=== PATIENT | male | born 1945 | race Caucasian/White ===

== ENCOUNTER → 2017-12-15 13:30 | Outpatient (CLI) | payer MEDICARE, SELFPAY ==
[2017-12-15 15:55] LABS: Hemoglobin A1c 7.4 % (4.2-6.3)
[2017-12-15 16:01] LABS: Cholesterol 256 mg/dL (200); High Density Lipoprotein 35 mg/dL; Triglycerides 311 mg/dL; Very Low Density Lipoprotein 62 mg/dL (5-40)
[2017-12-20 12:08] LABS: Testosterone, Free 4.63 ng/dL (5.00-21.00)
[2017-12-20 16:35] LABS: Testosterone, % Free 2.84 % (1.50-4.20); Testosterone, Total 163 ng/dL (264-916)
== END ==
PROVIDERS: Family Provider Family Medicine; PCP Family Medicine; Visit Provider Family Medicine
DX: E11.9 Type 2 diabetes mellitus without complications (principal); I10 Essential (primary) hypertension; E29.1 Testicular hypofunction; E78.5 Hyperlipidemia, unspecified
CPT/HCPCS: 36415; 80061; 83036; 84402; 84403

== ENCOUNTER 2018-02-09 09:08 | Emergency (ER) | payer MEDICARE, SELFPAY ==
[2018-02-09 09:09] VITALS: BP 134/80; PULSE 85; RESP 18; TEMP 36.7; O2SAT 98; BMI 25.2
--- NOTE | 2018-02-09 09:31 | NURSING ---
NO LW OR POA
--- NOTE | 2018-02-09 09:40 | ED.VISSUMM ---
- ER Visit Summary Date of Service: 02/09/18 Chief Complaint: Dizziness and weakness History of Present Illness: The patient is a 72 M who presents with weakness, dizziness, and fatigue that has been getting worse over the past 2 weeks. Patient states he feels lightheaded with sitting and standing. Patient states he also feels a spinning sensation at times. Patient states nothing seems to help. Patient states he has been having to stop to catch his breath while he mows the lawn. Patient admits to some occasional right-sided chest pain that only lasts a couple seconds then resolves. Patient does admit to some palpitations where he can feel his heart skipping beats. Patient also admits to some dark stools recently. Patient admits to nausea but denies any vomiting. Patient also admits to a mild headache. Physical Examination: Vital signs are stable. Patient is afebrile. Patient is in no acute distress. Pupils are equal, round, and reactive to light bilateral. Extraocular muscles are intact. Conjunctiva is clear. Oral mucosa is pink and moist. Heart was regular rate and rhythm. Lungs are clear and equal bilaterally. There is good respiratory effort noted. Abdomen is soft. Bowel sounds are normal. There is no tenderness. Rectal exam showed brown stool. Hemoccult was negative. There were no masses palpated. Cranial nerves II through XII are intact. There are no focal motor or sensory deficits noted. The remaining physical exam is within normal limits. Test Results: CBC shows a hemoglobin of 9.4. This is down from 13.4 approximately 2 months ago. Creatinine was slightly elevated at 1.79 which is normal for him. Orthostatic vital signs were obtained and were normal. Emergency Department Course and Treatment: Patient felt better on reevaluation. Case was discussed with his primary care physician, Dr. Burgos. He will follow-up with the patient in his office for further evaluation including stress test and referral for endoscopy. Patient understood and was agreeable with the plan. All questions were answered. Disposition: Discharged home Impression: Anemia This note was generated with JournalDoc dictation software. It may contain incorrect words, spelling, and punctuation that were not noted in review of the chart prior to signing ED Disposition - Plan for ED Patient: Disposition: Home or Assisted Living Chief Complaint: Dizziness Diagnosis: Anemia Instructions: ED Dizziness [facility] Referrals: Rolando Burgos DO [Primary Care Provider] -
[2018-02-09] MEDS: Morphine 4 MG/ML Syringe IV (09:58)
[2018-02-09] MEDS: Ondansetron 4 MG/2 ML Vial IV (09:58)
[2018-02-09] MEDS: 0.9% Normal Saline 1,000 ML 1000 ML IV (09:58)
[2018-02-09 10:01] LABS: Hemoglobin 9.4 g/dl (13.0-16.5); Mean Corp Hgb Conc 34.8 g/gl (32-36); Mean Corpuscular Hgb 29.7 pg (27.0-32.0); Mean Corpuscular Volume 85.4 fL (80-94); Mean Platelet Vol. 8.9 fl (6.2-12.0); Platelet Count 79 K/mm3 (150-450); RBC Distribution Width CV 14.1 % (11.6-14.6); RBC Distribution Width SD 42.3 fl (35.1-43.9); Red Blood Count 3.16 M/mm3 (4.6-6.2); White Blood Count 3.3 K/mm3 (4.4-11.0)
[2018-02-09 10:02] LABS: Differential Indicated MANUAL DIFF; POSITIVE COUNT YES; POSITIVE DIFFERENTIAL YES; POSITIVE MORPHOLOGY YES
--- NOTE | 2018-02-09 10:15 | RAD_ITS ---
STUDY: X-RAY - ACUTE ABDOMINAL SERIES REASON FOR EXAM: Male, 72 years old. Dizziness. Pain. TECHNIQUE: Single view of the chest. Supine, and erect view(s) of the abdomen were obtained. COMPARISON: None. FINDINGS: The lungs are clear and expanded. Normal size heart. Normal mediastinum and robinson. Normal visualized pulmonary arteries. Normal visualized aortic arch and descending thoracic aorta. There is a non-specific bowel gas pattern. The soft tissue structures of the abdomen and pelvis are unremarkable. There are diffuse degenerative changes of the visualized lumbar spine. RAD/Acute Abdomen Inc Chest IMPRESSION: There is no acute abnormality. Electronically Signed: Hal North MD at 10:39 EDT , Service support ,
[2018-02-09 10:17] LABS: ALB/GLOB Ratio 1.1 RATIO (0.9-2.4); AST(SGOT) 30 U/L (15-37); Alanine Aminotransfer ALT/SGPT 20 U/L (16-61); Albumin, Serum 3.9 g/dL (3.2-5.0); Alkaline Phosphatase 74 U/L (45-117); Anion Gap 11 (5-15); BUN 32 mg/dL (7-18); BUN/Creat Ratio 18.2 RATIO (10-20); Calcium,Total 10.9 mg/dL (8.5-10.1); Chloride 105 mmol/L (98-107); Creatinine, Serum 1.76 mg/dL (0.70-1.30); EST Glomerular Filtration Rate 41 mL/min (>60); Est Glom Filt Rate - Afr Amer 49 mL/min (>60); Globulin 3.7 g/dL (2.2-4.2); Glucose 147 mg/dL (74-106); Protein, Total 7.6 g/dL (6.4-8.2); Sodium Level 143 mmol/L (136-145)
[2018-02-09 10:38] VITALS: BP 112/77; BP 117/75; BP 129/75; PULSE 78; PULSE 79; PULSE 92
[2018-02-09 10:44] LABS: Basophil 2 % (0-1); Eosinophil 2 % (0-5); Lymphocyte 55 % (19-41); Metamyelocyte 5 % (0-1); Monocyte 13 % (0-10); Myelocyte 2 (0-0); Neutrophil-Band 4 % (0-5); Neutrophil-Segmented 17 % (47-70); Total Cells Counted 100 (MANUAL DIFF)
[2018-02-09 10:51] LABS: Hypochromasia RARE
[2018-02-09 11:08] VITALS: BP 111/72; PULSE 93; RESP 23
[2018-02-09 11:37] LABS: Bacteria 0 SEEN /hpf (None Seen); Red Blood Cells-Urine 0 SEEN /hpf (0-5)
[2018-02-09 11:48] LABS: Color, Urine Yellow (Yellow); Glucose, Dipstick Normal (Normal); Ketone-Dipstick 5 mg/dl (Negative); Leukocyte Esterase-Dipstick 25 /ul (Negative); Nitrite-Dipstick Negative (Negative); Occult Blood-Urine Negative /ul (Negative); Protein-Dipstick 30 mg/dl (Negative); Urine Bilirubin Dipstick Negative (Negative); Urine Clarity Clear (Clear); Urine Urobilinogen 1 mg/dl (Normal)
[2018-02-09 12:09] LABS: White Blood Cells 0-5 SEEN /hpf (0-5)
[2018-02-09 12:10] LABS: Hyaline Cast 5-10 SEEN /lpf (0-5); Mucous, Urine RARE /hpf (<or=2+); Squamous Epithelial Cells - UA 0-5 SEEN /hpf (0-5)
[2018-02-09 12:11] LABS: Calcium Oxalate Crystals Ur 3+ /hpf (<or=2+)
[2018-02-09 14:01] VITALS: BP 125/80; PULSE 80; RESP 16; O2SAT 98
[2018-02-10 00:32] LABS: Absolute Neutrophil Count 0.7 X10^3/uL (2.0-7.7); Neutrophil # 0.69 X10^3/uL (2.7-7.7)
[2018-02-10 10:02] LABS: Pathologist Review Reviewed
== END 2018-02-09 14:02 | disposition home or self-care (01) ==
PROVIDERS: Emergency Provider Emergency Medicine; Family Provider Family Medicine; PCP Family Medicine
DX: D64.9 Anemia, unspecified (principal); F32.9 Major depressive disorder, single episode, unspecified; Z85.72 Personal history of non-Hodgkin lymphomas; Z90.49 Acquired absence of other specified parts of digestive tract; Z79.899 Other long term (current) drug therapy
CPT/HCPCS: 74022; 80053; 81001; 82274; 85025; 96361; 96374; 96375; 99285; J7030; A4216; J2405

== ENCOUNTER → 2018-02-13 12:34 | Outpatient (CLI) | payer MEDICARE, SELFPAY ==
[2018-02-13 14:26] LABS: Erythrocyte Sedimentation Rate 13 mm/hr (0-20)
[2018-02-13 14:31] LABS: Prothrombin Time (Protime)PT. 13.5 SECONDS (11.7-14.9)
[2018-02-13 14:32] LABS: Absolute Lymphocyte Count 1.63 X10^3/ul (0.83-4.51); Absolute Neutrophil Count 0.7 X10^3/uL (2.0-7.7); Basophil# 0.03 X10^3/uL; Eosinophil# 0.09 X10^3/uL; Eosinophils% 3.1 % (0-5); Hematocrit 25.9 % (40-54); Hemoglobin 8.7 g/dl (13.0-16.5); Lymphocyte # 1.63 X10^3/ul (4.0); Mean Corp Hgb Conc 33.6 g/gl (32-36); Mean Corpuscular Hgb 28.5 pg (27.0-32.0); Mean Corpuscular Volume 84.9 fL (80-94); Mean Platelet Vol. 9.1 fl (6.2-12.0); Monocyte# 0.33 X10^3/uL; Monocyte% 11.5 % (0-10); Neutrophil # 0.71 X10^3/uL (2.7-7.7); Partial Thromboplast Time 27.7 Seconds (24.1-36.2); Platelet Count 82 K/mm3 (150-450); RBC Distribution Width CV 14.7 % (11.6-14.6); RBC Distribution Width SD 45.1 fl (35.1-43.9); Red Blood Count 3.05 M/mm3 (4.6-6.2); White Blood Count 2.9 K/mm3 (4.4-11.0)
[2018-02-13 14:33] LABS: Differential Indicated SCAN CRITERIA MET; POSITIVE COUNT YES; POSITIVE DIFFERENTIAL YES; POSITIVE MORPHOLOGY YES
[2018-02-13 14:39] LABS: AST(SGOT) 27 U/L (15-37); Alanine Aminotransfer ALT/SGPT 21 U/L (16-61); Albumin, Serum 3.8 g/dL (3.2-5.0); Alkaline Phosphatase 80 U/L (45-117); Anion Gap 8 (5-15); BUN 25 mg/dL (7-18); BUN/Creat Ratio 13.9 RATIO (10-20); CRP 8.76 mg/L (0.0-3.0); Calcium,Total 10.4 mg/dL (8.5-10.1); Chloride 105 mmol/L (98-107); EST Glomerular Filtration Rate 40 mL/min (>60); Est Glom Filt Rate - Afr Amer 48 mL/min (>60); Ferritin 729 ng/mL (26-388); Globulin 3.9 g/dL (2.2-4.2); Glucose 141 mg/dL (74-106); Iron 156 ug/dL (65-175); LDH 352 U/L (87-241); Protein, Total 7.7 g/dL (6.4-8.2); Sodium Level 142 mmol/L (136-145); Uric Acid 8.4 mg/dL (3.5-7.2)
[2018-02-14 09:23] LABS: Pathologist Review Reviewed
[2018-02-15 10:29] LABS: Beta-2-Microglobulin, S 6.9 mg/L (0.6-2.4)
== END ==
PROVIDERS: Family Provider Family Medicine; PCP Family Medicine; Visit Provider Family Medicine
DX: R53.83 Other fatigue (principal); D61.818 Other pancytopenia; E83.52 Hypercalcemia; E80.6 Other disorders of bilirubin metabolism; N18.3 Chronic kidney disease, stage 3 (moderate)
CPT/HCPCS: 36415; 80053; 82232; 82728; 83540; 83615; 84550; 85025; 85610; 85652; 85730; 86140

== ENCOUNTER 2018-02-13 17:02 | Emergency (ER) | payer MEDICARE, SELFPAY ==
[2018-02-13 17:03] VITALS: BP 138/71; PULSE 103; RESP 14; TEMP 36.6; O2SAT 99; BMI 25.9
--- NOTE | 2018-02-13 18:13 | ED.VISSUMM ---
- ER Visit Summary Date of Service: 02/13/18 Chief Complaint: Needs transfer to [facility] History of Present Illness: The patient is a 72 M presenting stating that he was advised to come to the ER to arrange transfer to [facility]. Patient was seen by his primary care physician Dr. Burgos and had outpatient blood work today. This was reviewed with Dr. Ybarra. 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 He was advised to come to the ED for transfer to [facility] for further treatment. Physical Examination: Vitals are stable. Patient is afebrile. Alert no acute distress. HEENT exam is unremarkable. Neck is supple. Lungs are clear and equal bilaterally. Heart is regular and tachycardic Abdomen is soft nontender nondistended. Extremities are unremarkable. Skin is warm and dry. No focal neurologic deficit. Remainder of exam is unremarkable. Emergency Department Course and Treatment: Labs are reviewed. He has a white count of 2.9, hemoglobin 8.7, platelets 82, 55% blasts. BUN 25, creatinine 1.8. CRP 8.76. LDH 352. Discussed with [facility] transfer line. [facility] recommends allopurinol and IV fluids prior to transfer. Patient will be transferred to [facility]. Disposition: Transfer [facility] Impression: Acute lymphocytic leukemia This note was generated with [employer] dictation software. It may contain incorrect words, spelling, and punctuation that were not noted in review of the chart prior to signing ED Disposition - Plan for ED Patient: Chief Complaint: General Illness Referrals: Rolando Burgos DO [Primary Care Provider] -
[2018-02-13 19:38] VITALS: BP 125/67; PULSE 82; RESP 18; O2SAT 98
[2018-02-13] MEDS: 0.9% Normal Saline 1,000 ML 150 ML IV (19:43)
[2018-02-13] MEDS: Allopurinol 300 MG Tablet PO (19:47)
[2018-02-13] MEDS: Morphine 2 MG/ML Syringe IV (19:57)
[2018-02-13] MEDS: Ondansetron 4 MG/2 ML Vial IV (19:58)
--- NOTE | 2018-02-13 20:39 | ED.RN ---
CALLED [facility] TO CHECK THE STATUS OF THE ROOM ASSIGNMENT FOR THIS PT, NO ONE ANSWERED TO CALL, LEFT MESSAGE
[2018-02-13 21:07] VITALS: BP 106/69; PULSE 69; RESP 17; O2SAT 98
--- NOTE | 2018-02-13 21:08 | NURSING ---
TRANSFER HOSPITAL STATED THEY WILL CALL US SOON THE ROOM IS CLEAN TO GIVE US PT'S ROOM ASSIGNMENT.
[2018-02-13 21:12] VITALS: BP 102/69; PULSE 78; RESP 17; O2SAT 98
[2018-02-13 22:05] VITALS: BP 104/67; PULSE 79; RESP 16; O2SAT 98
[2018-02-14 00:27] VITALS: BP 109/73; PULSE 84; RESP 17; O2SAT 98
== END 2018-02-14 01:42 | disposition short-term general hospital (02) ==
LOC: ED 18:22
PROVIDERS: Emergency Provider Emergency Medicine; Family Provider Family Medicine; PCP Family Medicine
DX: C91.00 Acute lymphoblastic leukemia not having achieved remission (principal); E78.00 Pure hypercholesterolemia, unspecified; Z85.72 Personal history of non-Hodgkin lymphomas; Z79.82 Long term (current) use of aspirin; Z79.899 Other long term (current) drug therapy; R53.83 Other fatigue; D61.818 Other pancytopenia; E83.52 Hypercalcemia; N18.3 Chronic kidney disease, stage 3 (moderate); E80.6 Other disorders of bilirubin metabolism
CPT/HCPCS: 36415; 80053; 82232; 82728; 83540; 83615; 84550; 85025; 85610; 85652; 85730; 86140; 96361; 96374; 96375; 99284; J7030; A4216; J2405

== ENCOUNTER 2018-04-15 08:29 | Outpatient (CLI) | payer MEDICARE, SELFPAY ==
[2018-04-15] MEDS: DiphenhydrAMINE 25 MG Capsule PO (09:31)
[2018-04-15] MEDS: Acetaminophen 325 MG Tablet 650 MG PO (09:31)
[2018-04-15 09:39] VITALS: BP 118/72; PULSE 85; RESP 16; TEMP 36.6; O2SAT 99
[2018-04-15 09:46] VITALS: BP 125/76; PULSE 83; RESP 16; TEMP 37.6; O2SAT 100
== END 2018-04-15 12:10 | disposition home or self-care (01) ==
LOC: PCUOUT 08:30 → PCU 08:31
PROVIDERS: Family Provider Family Medicine; PCP Family Medicine; Visit Provider Internal Medicine Medical Oncology
DX: C83.10 Mantle cell lymphoma, unspecified site (principal)
CPT/HCPCS: 36430; 86850; 86900; 86920; J7040; P9040

== ENCOUNTER → 2018-05-12 10:46 | Outpatient (CLI) | payer MEDICARE, SELFPAY ==
[2018-05-12 11:00] VITALS: BP 124/69; PULSE 88; RESP 16; TEMP 36.9; O2SAT 98; BMI 25.1
[2018-05-12 11:39] VITALS: BP 108/58; PULSE 81; RESP 16; TEMP 36.8
[2018-05-12 12:39] VITALS: BP 123/72; PULSE 75; RESP 18; TEMP 36.4; O2SAT 99
[2018-05-12 13:30] VITALS: BP 128/75; PULSE 77; RESP 18; TEMP 36.8; O2SAT 100
== END ==
PROVIDERS: Family Provider Family Medicine; PCP Family Medicine
DX: C83.10 Mantle cell lymphoma, unspecified site (principal); D64.9 Anemia, unspecified
CPT/HCPCS: 36430; 86850; 86900; 86920; 86922; J7040; P9040; A4216

== ENCOUNTER → 2018-05-16 08:44 | Outpatient (CLI) | payer MEDICARE, SELFPAY ==
[2018-05-16] VITALS (7 sets, daily range): BP systolic 113–145; BP diastolic 69–86; PULSE 59–91; RESP 14–18; TEMP 36.2–37.5; O2SAT 97–100
[2018-05-16] MEDS: DiphenhydrAMINE 25 MG Capsule (09:00)
[2018-05-16] MEDS: Acetaminophen 325 MG Tablet 650 MG PO (09:00)
== END ==
PROVIDERS: Family Provider Family Medicine; PCP Family Medicine
DX: C83.10 Mantle cell lymphoma, unspecified site (principal); D64.9 Anemia, unspecified
CPT/HCPCS: 36430; 86644; 86850; 86900; 86920; 86922; 86965; J7040; P9037; P9040; A4216

== ENCOUNTER 2018-06-12 19:02 | Emergency (ER) | payer MEDICARE, SELFPAY ==
[2018-06-12 19:03] VITALS: BP 147/86; PULSE 112; RESP 16; TEMP 36.1; BMI 25.7
--- NOTE | 2018-06-12 19:23 | CT_ITS ---
STUDY: CT ABDOMEN AND PELVIS WITHOUT CONTRAST REASON FOR EXAM: Male, 73 years old. Groin pain. Bone cancer and mental cell lymphoma RADIATION DOSAGE (If Supplied By Facility): CTDIvol = ( 20.49 ) mGy, DLP = ( 567.82 ) mGycm TECHNIQUE: Transaxial images were obtained from the dome of the diaphragm to the symphysis pubis without oral contrast, and without intravenous contrast. Sagittal and coronal images were reconstructed. Individualized dose optimization techniques were used for this CT. COMPARISON: None. FINDINGS: The visualized lung bases are unremarkable. The visualized portions of the heart are within normal limits. Normal liver. There are surgical clips in the gallbladder fossa consistent with a prior cholecystectomy. There are multiple benign calcified granulomata of the spleen. Normal pancreas. Normal bilateral adrenal glands. Normal right kidney. Normal left kidney. There is a small hiatal hernia. Normal small intestine. Moderate to severe fecal retention throughout the right hemicolon and transverse colon. There is non-visualization of the appendix. There is diffuse atherosclerotic calcification of the abdominal aorta, without a demonstrated aneurysm. Normal inferior vena cava. Normal retroperitoneum. Normal urinary bladder. There is enlargement of the prostate gland. Small fat-containing bilateral inguinal hernias. There are diffuse degenerative changes of the visualized lumbar spine. Grade 1 anterolisthesis of L5 on S1. Bilateral pars defects, chronic. CT/Abdomen/Pelvis without Cont IMPRESSION: Significant fecal retention throughout the right hemicolon and transverse colon. No evidence of urolithiasis or renal obstruction. Small bilateral fat-containing inguinal hernias. Electronically Signed: Bret Raygoza DO at 20:16 EDT Tel , Service support ,
--- NOTE | 2018-06-12 19:38 | ED.RN ---
DILAUDID, ZOFRAN, AND IV FLUIDS GIVEN AT THIS TIME- UNABLE TO SCAN.
[2018-06-12] MEDS: HYDROmorphone 1 MG/ML Syringe 0.5 MG IV (20:13)
[2018-06-12] MEDS: 0.9% Normal Saline 1,000 ML 150 ML IV (20:13)
[2018-06-12] MEDS: Ondansetron 4 MG/2 ML Vial IV (20:13)
--- NOTE | 2018-06-12 20:14 | ED.DCSUM_ITS ---
- ER Visit Summary Date of Service: 06/12/18 Chief Complaint: Pain in groin and chest History of Present Illness: The patient is a 73 M with a history of mantle cell lymphoma. Patient presents with his complaining of pain in his groin and chest which he describes his pain in the breast bone and not near his heart or lungs started this afternoon. He denies any back pain or difficulty urinating. Patient goes off on a tangent about how his life has been held and he is tired of bearing at all. He states multiple ministers of walked away from him and he feels spiritual despair. He states he has been to a psychiatrist in the past and they just pump and full of drugs. Physical Examination: Blood pressure is 147/86, temperature 96.9, heart rate 112, respiratory rate 16 Patient standing at the bedside. He is agitated. Head neck examination is otherwise unremarkable. Heart is tachycardic and regular. Lung sounds clear. There is no chest wall tenderness. Abdomen is soft and nontender. Back examination reveals no thoracic or lumbar midline tenderness. He has no CVA tenderness. Patient has no obvious neuro deficits on exam. Test Results: CBC was a white count of 2.1, hemoglobin 8.5, hematocrit 26.3. Platelet count is 26,000. Differential significant for 29 neutrophils and 44 bands. Chemistry studies reveal glucose of 159. Urinalysis is normal. CT flank shows fecal retention throughout the right hemicolon in the transverse colon. There is no definite kidney stone. Small bilateral fat-containing hernias are noted. Emergency Department Course and Treatment: Patient received a small dose of Dilaudid along with Zofran and IV fluids. On repeat evaluation patient is resting comfortably. I did discuss case with Dr. Ybarra, the patient's oncologist, including the CBC findings and differential. Patient is scheduled for packed RBCs and platelets transfusion tomorrow. Dr. Ybarra will see him tomorrow for this. Treatment Plan: [] Disposition: Discharge Impression: 1. Groin pain, resolved 2. Pancytopenia with history of lymphoma This note was generated with [employer] software. It may contain incorrect words, spelling, and punctuation that were not noted in review of the chart prior to signing ED Disposition - Plan for ED Patient: Disposition: Home or Assisted Living Chief Complaint: General Illness Instructions: ED Flank Pain Uncertain Cause Referrals: Karri Ybarra MD [NON-STAFF] - 1 Day
[2018-06-12 20:16] LABS: Anion Gap 7 (5-15); BUN 14 mg/dL (7-18); BUN/Creat Ratio 11.2 RATIO (10-20); Chloride 106 mmol/L (98-107); Creatinine, Serum 1.25 mg/dL (0.70-1.30); EST Glomerular Filtration Rate 60 mL/min (>60); Est Glom Filt Rate - Afr Amer 73 mL/min (>60); Estimated Creatinine Clearance 49.21 ml/min; Glucose 159 mg/dL (74-106); Potassium 4.3 mmol/L (3.5-5.1); Sodium Level 139 mmol/L (136-145)
[2018-06-12 20:18] LABS: Hematocrit 26.3 % (40-54); Hemoglobin 8.5 g/dl (13.0-16.5); Mean Corp Hgb Conc 32.3 g/gl (32-36); Mean Corpuscular Hgb 30.9 pg (27.0-32.0); Mean Corpuscular Volume 95.6 fL (80-94); RBC Distribution Width CV 18.4 % (11.6-14.6); Red Blood Count 2.75 M/mm3 (4.6-6.2); White Blood Count 2.1 K/mm3 (4.4-11.0)
--- NOTE | 2018-06-12 20:28 | ED.RN ---
DR COX NOTIFIED OF PLATELET AND WBC RESULTS
[2018-06-12 20:36] LABS: Bacteria 0 SEEN /hpf (None Seen); Mucous, Urine 0 SEEN /hpf (<or=2+); Red Blood Cells-Urine 0 SEEN /hpf (0-5); Squamous Epithelial Cells - UA 0 SEEN /hpf (0-5); White Blood Cells 0 SEEN /hpf (0-5)
[2018-06-12 20:41] LABS: Color, Urine Yellow (Yellow); Glucose, Dipstick Normal (Normal); Ketone-Dipstick Negative (Negative); Leukocyte Esterase-Dipstick 25 /ul (Negative); Nitrite-Dipstick Negative (Negative); Occult Blood-Urine Negative /ul (Negative); Protein-Dipstick 15 mg/dl (Negative); Urine Bilirubin Dipstick Negative (Negative); Urine Clarity Clear (Clear); Urine Urobilinogen Normal (Normal)
[2018-06-12 20:44] LABS: Differential Indicated MANUAL DIFF; POSITIVE COUNT YES; POSITIVE DIFFERENTIAL YES; POSITIVE MORPHOLOGY YES; Platelet Count 26 K/mm3 (150-450)
[2018-06-12 20:49] LABS: Basophil 1 % (0-1); Eosinophil 11 % (0-5); Lymphocyte 2 % (19-41); Metamyelocyte 3 % (0-1); Monocyte 10 % (0-10); Neutrophil-Band 44 % (0-5); Neutrophil-Segmented 29 % (47-70); Total Cells Counted 100 (MANUAL DIFF)
[2018-06-12 20:50] LABS: Toxic Granulation 2+
[2018-06-12 20:51] LABS: Anisocytosis 2+; Hypochromasia 1+; Macrocytosis RARE; Platelet Estimate MKD DEC (ADEQ)
[2018-06-12 21:02] VITALS: BP 116/73; PULSE 83; RESP 16; O2SAT 99
[2018-06-12 21:21] LABS: Absolute Lymphocyte Count 0.42 X10^3/ul (0.83-4.51); Absolute Neutrophil Count 1.5 X10^3/uL (2.0-7.7)
--- NOTE | 2018-06-12 22:10 | ED.DEP ---
ED Disposition - Plan for ED Patient: Disposition: Home or Assisted Living Chief Complaint: General Illness Instructions: ED Flank Pain Uncertain Cause Referrals: Karri Ybarra MD [NON-STAFF] - 1 Day
[2018-06-12 22:20] VITALS: BP 116/73; PULSE 83; RESP 16; O2SAT 99
[2018-06-13 12:35] LABS: Pathologist Review Reviewed
== END 2018-06-12 22:23 | disposition home or self-care (01) ==
PROVIDERS: Emergency Provider Emergency Medicine; Family Provider Family Medicine; PCP Family Medicine
DX: R10.30 Lower abdominal pain, unspecified (principal); D61.818 Other pancytopenia; C83.10 Mantle cell lymphoma, unspecified site; R07.9 Chest pain, unspecified; K40.20 Bilateral inguinal hernia, without obstruction or gangrene, not specified as recurrent; Z90.49 Acquired absence of other specified parts of digestive tract; Z79.899 Other long term (current) drug therapy; Z87.891 Personal history of nicotine dependence
CPT/HCPCS: 74176; 80048; 80053; 81001; 85025; 96361; 96374; 96375; 99284; J7030; J2405

== ENCOUNTER → 2018-06-13 10:16 | Outpatient (CLI) | payer MEDICARE, SELFPAY ==
[2018-06-13] VITALS (7 sets, daily range): BP systolic 108–166; BP diastolic 65–81; PULSE 80–86; RESP 14–18; TEMP 36.3–36.5; O2SAT 94–100; BMI 26.8
== END ==
PROVIDERS: Family Provider Family Medicine; PCP Family Medicine
DX: D61.811 Other drug-induced pancytopenia (principal)
CPT/HCPCS: 36430; 86644; 86850; 86900; 86920; 86922; 86965; J7040; P9037; P9040; A4216

== ENCOUNTER → 2018-06-20 09:54 | Outpatient (CLI) | payer MEDICARE, SELFPAY ==
[2018-06-20 10:12] VITALS: BP 113/68; PULSE 76; RESP 16; TEMP 36.6; O2SAT 100; BMI 25.2
[2018-06-20] MEDS: 0.9% Normal Saline 1,000 ML 999 ML IV (10:26)
== END ==
PROVIDERS: Family Provider Family Medicine; PCP Family Medicine
DX: C83.10 Mantle cell lymphoma, unspecified site (principal)
CPT/HCPCS: 96360; J7030; A4216

== ENCOUNTER → 2018-07-14 07:55 | Outpatient (CLI) | payer MEDICARE, SELFPAY ==
[2018-07-14] VITALS (7 sets, daily range): BP systolic 101–120; BP diastolic 57–70; PULSE 76–88; RESP 16–18; TEMP 36.3–36.7; O2SAT 99–100; BMI 25.3
== END ==
PROVIDERS: Family Provider Family Medicine; PCP Family Medicine; Visit Provider Internal Medicine Medical Oncology
DX: C83.10 Mantle cell lymphoma, unspecified site (principal)
CPT/HCPCS: 36430; 86850; 86900; 86920; 86922; J7040; P9040; A4216

== ENCOUNTER → 2018-08-08 10:50 | Outpatient (CLI) | payer MEDICARE, SELFPAY ==
[2018-07-14 08:22] VITALS: BMI 25.3
[2018-08-08 11:04] VITALS: BP 199/58; RESP 16; TEMP 36.4; BMI 25.5
[2018-08-08] MEDS: 0.9% Normal Saline 1,000 ML 999 ML IV (11:18)
[2018-08-08 13:13] VITALS: BP 102/64; PULSE 87; RESP 16; TEMP 36.5; O2SAT 98
[2018-08-08 13:44] VITALS: BP 110/71; PULSE 72; RESP 16; TEMP 36.6
--- OUTSIDE RECORDS SUMMARY | 2018-09-24 11:34 | XMS RPT_ITS | Summary of Care ---
:[address] [facility] Address [address] [place] [address] Phone Care Team Providers Name Role Phone LorettaRolando neri Primary Care Provider Corrie Pope RN Bedside Nurse Unavailable Karri Ybarra [facility] Referring 1 Karri Ybarra [facility] Unavailable Kasey De Leon RN Bedside Nurse Unavailable Linda Hsu MD Unavailable Tamara Lopez RN Unavailable Unavailable Encounter Details Date Type Department Care Team Description 07/17/2018 Notes/Results Only NOTES/RESULTS Other, Other Allergies Active Allergy Reactions Severity Noted Date Comments Duloxetine Hcl Insomnia 02/14/2018 Dm-Guaifenesin Er Confusion 02/14/2018 Quetiapine Insomnia 02/14/2018 Statins 02/14/2018 Pain to muscles as of this encounter Medications Prescription Sig. Disp. Refills Start Date End Date Status omeprazole 20 MG Cap Take 20 mg by 03/20/[address] capsule mouth daily. Misc Natural Products Take 1 capsule by Active (COSAMIN ASU FOR JOINT mouth daily. HEALTH PO) ergocalciferol 78899 Take 50,000 Units Active units Cap by mouth once a week. allopurinol 300 MG Tab Take 1 tablet by 30 tablet 2 02/24/2018 Active tablet mouth daily. docusate 100 MG Cap Take 1 capsule by 04/07/2018 Active mouth 2 times daily as needed for Constipation 1st Line. polyethylene glycol Take 1 packet by 04/07/2018 Active Pack packet mouth daily as needed for Constipation 2nd Line. senna 17.2 MG Tab Take 1 tablet by 0 04/07/2018 Active mouth 2 times daily as needed for Constipation 1st Line. sulfamethoxazole-trime Take 1 tablet by 30 tablet 5 04/08/2018 Active thoprim 800-160 MG Tab mouth daily. 9 per tablet acyclovir 200 MG Cap Take 2 capsules 120 capsule 5 04/07/2018 Active by mouth 2 times daily. prochlorperazine 10 MG Take 1 tablet by 30 tablet 1 04/07/2018 Active Tab tablet mouth every 6 hours as needed for Nausea / Vomiting (try first for nausea/vomiting). ondansetron 8 MG Tab Take 1 tablet by 30 tablet 1 04/07/2018 Active tablet mouth every 8 hours as needed for Nausea / Vomiting (try second for nausea or vomiting). calcium acetate 667 MG Take 1 capsule by 60 capsule 0 04/10/2018 Active Cap mouth 3 times daily with meals. CUSTOM MEDICATION Saline-Bicarbonate Mouth Rinse 1 Each 04/10/2018 Active Swish and spit about 1 tbsp 4 times a day. Mix together, refrigerate, and use within 7 days: 16 oz bottled water 1 teaspoon table salt 1 teaspoon baking soda lidocaine (XYLOCAINE) Take 15 mL by 1 Bottle 0 04/20/2018 Active 80 mL, diphenhydrAMINE mouth every 6 (BENADRYL) 80 mL, hours as needed. alum/mag hydrox.-simethicone 80 mL mouthwash BENDAMUSTINE HCL IV by Intravenous Active route. Cytarabine (PF) Active (CYTOSAR) in sodium chloride 0.9%, with overfill, tubing chemo infusion RITUXIMAB IV by Intravenous Active route. as of this encounter Active Problems Patient Care Coordination Note Patient follows with Dr. Ybarra locally at [place] for labs, line care and transfusion needs. 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 Creat and LDH improved with steroids. Renal diet, phoslo dose TID. Increased allopurinol to 300 mg BID on 04/03 then back to daily on 04/07. Q8 hr TLS labs stable, will change to Q12 hr. K 5.3 on 04/06. EKG NSR without EKG changes. Gave 30 gm Kayexalate x 1 and recheck 4.5. Mood disorder 04/02/2018 Last Assessment & Plan: Patient has been distraught/tearful/anxious during this admission. He divulged that he has been inpatient in a psychiatric unit before and took Seroquel for 3 years. He attributes his current symptoms t o the Seroquel he took in the past. He has endorsed transient thoughts of wanting to , but none today, and he denies any plans for self-harm. Pain Management Specialist has met with him and also discussed some coping strategies with him, as well as utilizing family support. Psych consult deferred as he already has mistrust of psychiatry in general and I feel t his would exacerbate his distrust. Would also advise against suicide precautions as while he made statements consistent transient suicidal thoughts he has no active plan and I do not believe he is currently at risk of self-harm. Ativan 0.5 mg PO Q6 hours prn anxiety/agitation as he said the IV ativan on Tuesday (prior to procedures) really helped him to be calm and relaxed. Continues to report that he can hear the voice of G-d again, which he hasn't heard in 40 years. It is unclear if he is have audial hallucinations or is delusional, he certain displays paranoia at times. Suspect steroids are exacerbating his underlying mood disorder, possibly also with metabolic exacerbation from MINNIE/liver dysfunction/TLS. Hopefully this will improve off steroids, but if not we may need to bring psych in for evaluation. Fever 04/01/2018 Last Assessment & Plan: No fevers reported on admission, but Tmax 101 8/, afebrile since. Could be due to HLH or lymphoma, but also possibly due to infection. No localizing symptoms of infection. Not neutropenic. PB cultures NGTD 12/31. Sent CSF for infectious workup (particularly fungal studies). Defer antibiotics at this time as fever more likely due to non-infectious process. Meningitis panel negative, fungal culture NGTD. Lip numbness 03/30/2018 Last Assessment & Plan: Intermittent for past 7 years, but started again ~2-3 days prior to admission. MRI brain chronic microvascular changes, small remote lacunar infarcts, no edema/mass effect/mass lesion, remote microhemorrhages, and mild diffuse dural thickening and enhancement along B/L cerebral co nvexities--potential etiologies include intracranial hypotension or pachymeningeal process. LP at bedside unsuccessful, LP in fluoro 04/04 to evaluate for DETAILER involvement of lymphoma. CSF <3 WBC, flow with insufficient cells, cytology and differential negative for lymphoma. Acute pain 03/30/2018 Last Assessment & Plan: Generalized body pain per patient, but appears more significant in his right shoulder and jaw. Continue oxycodone PRN. Constipation 03/30/2018 Last Assessment & Plan: Improved after 1/2 bottle of mag citrate and started scheduled colace, senna and miralax. Now stool loose/liquid, changed bowel regimen to prn and can add back in as needed. MCL (mantle cell lymphoma) 03/29/2018 Abnormal LFTs 03/29/2018 Last Assessment & Plan: T bili 2.7, D bili 0.7, Alk Phos 263, ALT 73, AST 139 on admission. Could be secondary to lymphoma or HLH. LFTs improving since starting steroids, except for the bilirubin which increased on 04/05: T bili 5.7, D bili 2.7. RUQ US unremarkable---no liver masses, flow is good, no biliary ductal dilation. Did have focal area of increased FDG avidity in liver noted on PET scan. Hepatitis battery negative. T bili 5.1, D bili 2.5, Alk phos 294, and ALT/AST WNL today. Anemia and thrombocytopenia 03/29/2018 Last Assessment & Plan: Secondary to lymphoma, possibly secondary to HLH also. Transfuse to maintain Hgb >7.0 and platelets >10k unless symptomatic. Has had 3 units pRBC since admission, and 5 units of platelets (prior to and post LPs to get platelets>50K for the procedure) Black tarry stools 02/15/2018 Last Assessment & Plan: Resolved. Had normal BM overnight. Guiac negative 02/15. Continue to closely monitor. 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 Initially admitted to [facility] 02/14-02/24/2018 and found to have mantle cell lymphoma. CT chest showed borderline , enlarged non-specific left hilar LN. 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 Surg path from bone marrow biopsy was consistent with MCL with t(11;14). Was discharged on Ibrutinib. Follows with Dr. Ybarra in [place]. Admitted 03/29 d/t concern for disease progression. Seen by local electric powerline examiner 03/28 and was found to have a WBC from 4 to 37 and LDH 200? s to 3000 over 2 week time span . On admission WBC 29.48, LDH 5037. Recently on Ibrutinib, last dose 03/28, held on admission. Continue ID ppx acyclovir. PET (03/29) with hypermetabolic lymph nodes in the neck, chest and abdomen. Focal s uperficial hypermetabolic activity along the anterior aspect of the liver which may represent focal lymphomatous involvement. Mildly hypermetabolic spleen is nonspecific and may relate to lymphomatous i nvolvement versus post treatment change. Intensely hypermetabolic bone marrow throughout the visualized osseous structures is also nonspecific. Peripheral flow positive for mantle cell lymphoma. Lymphoi d mutation panel for ibrutinib resistance mutation negative. Disease progression remains unclear in spite of PET and rising WBC and LDH, sent IL2, fibrinogen, ferritin, triglycerides due to concern for HLH. Ferritin peaked at 5726 (04/01), trending down with steroids most recent level 2230 on 04/05. Trig 541 Fibrinogen elevated IL2 152,000 Concern for HLH based on cytopenias, LFTs, LDH, fevers, DETAILER symptoms. Bone marrow biopsy 03/31 extensively involved by mantle cell lymphoma representing 90% of marrow cellularity . Attempted LP at bedside 03/31 but unsuccessful. Started pulse dex 40 mg daily x 4 days (03/31-), and again dex 20 mg 04/05-04/06 LP in fluoro 04/04, results negative for lymphoma. Sent hemolysis labs due to cytopenias/LDH/bilirubin--haptoglobin normal, retic low, JLUIS negative, so even though LDH and bilirubin are elevated I think this is due to liver process (HLH vs lymphoma in l iver?) rather than from hemolysis. Will continue to trend LFTs and LDH daily. LDH trending down since starting steroids, was >5000, today down to 876 today. Also WBC count trended down, as well as ci rculating lymphoma cells, clearly responding to steroids. Started C1 BR on 04/06. Will likely transition to R-TRAM outpatient. Added Bactrim for PCP ppx. Will follow up with Dr. Hsu in 4 weeks on 05/04 for next cycle of chemotherapy. Hyperuricemia 02/14/2018 CKD (chronic kidney disease) 02/14/2018 Last Assessment & Plan: Cr. 1.46 on admissions (Baseline Cr 1.4-1.5). Cr 1.22 overnight up from 1.08. Cr 1.17 this morning. Continue IVF. Dose reduce medications and avoid nephrotoxic agents when able. Given TLS, elevated K and phos on 04/03, changed to renal diet (and carb controlled). Continue phoslo 1334 mg TID with meals. Hypercalcemia 02/14/2018 Non-insulin dependent type 2 diabetes mellitus 02/14/2018 Last Assessment & Plan: Diet controlled. Most recent A1C 7.4% on 12/15/2017. In setting of high dose steroids (sugars 300-400), started SSI Lispro, currently at 2:25>150 and CHO coverage 1u:5g CHO. BS 132-259 for past 24 hrs. GERD (gastroesophageal reflux disease) 02/14/2018 Last Assessment & Plan: Continue PPI. NHL (non-Hodgkin's lymphoma) 02/14/2018 Last Assessment & Plan: With sinus involvement. s/p chemo/radiation in 2005. Headache 02/14/2018 Last Assessment & Plan: Chronic. Tramadol prn. If worsens, consider imaging. Resolved Problems Problem Noted Date Resolved Date Hyperkalemia 04/01/2018 04/02/2018 Leukocytosis 03/29/2018 04/05/2018 Social History Tobacco Use Types Packs/Day Years Used Date Former Smoker 1 13 Sex Assigned at Date Recorded Not on file as of this encounter Functional Status Functional Status Response Date of Assessment Are you deaf or do you have serious difficulty hearing? No 03/29/2018 Are you blind or do you have serious difficulty seeing, No 03/29/2018 even when wearing glasses? Do you have serious difficulty walking or climbing stairs No 03/29/2018 (5 years or older)? Do you have difficulty dressing or bathing (5 yrs or No 03/29/2018 older)? Because of a physical, mental, or emotional condition, do No 03/29/2018 you have difficulty doing errands alone such as visiting a doctor's office or shopping (5 yrs or older)? Cognitive Status Response Date of Assessment Because of a physical, mental, or emotional condition, do Yes 03/29/2018 you have serious difficulty concentrating, remembering, or making decisions (5 yrs or older)? as of this encounter Plan of Treatment Upcoming Encounters Date Type Specialty Care Team Description 07/26/2018 Hospital Encounter Nuclear Medicine Linda Hsu MD [address] [place] [address] 07/27/2018 Office Visit Hematology 07/27/2018 Infusion Visit Chemotherapy 07/28/2018 Infusion Visit Chemotherapy Linda Hsu MD [address] [place] [address] 07/29/2018 Infusion Visit Chemotherapy 08/24/2018 Office Visit Hematology Linda Hsu MD [address] [place] [address] 08/24/2018 Infusion Visit Chemotherapy 08/25/2018 Infusion Visit Chemotherapy 08/26/2018 Infusion Visit Chemotherapy Health Maintenance Due Date Last Done Comments TETANUS 1963 TDAP (ADULT) 1964 LIPID SCREENING 1985 PROSTATE CANCER SCREENING DISCUSSION 1995 ABDOMINAL AORTIC ANEURYSM HIGH RISK SCREEN 2010 PNEUMOCOCCAL VACCINE SERIES (1 of 2 - 2010 PCV13) INFLUENZA VACCINE (#1) 2018 05/05/2013 COLON CANCER SCREENING DISCUSSION 02/15/2019 02/15/2018 HEPATITIS C VIRUS SCREENING Completed 03/30/2018, 02/14/2018 as of this encounter Goals Goal Patient Goal Associated Recent Patient-Stated? Author Type Problems Progress Lifestyle Lifestyle No Tamara Lopez, MORENA Note: Clem Parvez and caregiver will be knowledgeable of plan of care. Clem will be compliant with treatment regimen. As evidenced by patient? s ability to recognize barriers to compliance and know who to contact with questions or concerns. [facility] provided Clem with education related to above. as of this encounter Procedures Procedure Name Priority Date/Time Associated Diagnosis Comments LABS (OUTSIDE) 07/17/2018 12:00 AM EST in this encounter Results LABS (OUTSIDE) (07/17/2018) Narrative Performed At in this encounter
--- OUTSIDE RECORDS SUMMARY | 2018-09-24 11:34 | XMS RPT_ITS | Summary of Care ---
:1945 Author Organization [facility] Address [address] [place] [address] Phone Care Team Providers Name Role Phone LorettaRolando neri Primary Care Provider Corrie Pope RN Bedside Nurse Unavailable Karri Ybarra [facility] Referring 1 Karri Ybarra [facility] Unavailable Kasey De Leon RN Bedside Nurse Unavailable Linda Hsu MD Unavailable Tamara Lopez RN Unavailable Unavailable Encounter Details Date Type Department Care Team Description 07/13/2018 Notes/Results Only NOTES/RESULTS Other, Other Allergies Active [...] FOR JOINT mouth daily. HEALTH PO) ergocalciferol 21149 Take 50,000 Units Active units Cap by [...] Patient follows with Dr. Ybarra locally at [place] for labs, line care and transfusion needs. [...] and he denies any plans for self-harm. 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 CSF <3 WBC, flow [...] del17p and complex karyotype. 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 CT chest showed borderline , enlarged non-specific left hilar LN. 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 Surg path from bone marrow biopsy was consistent with MCL with t(11;14). Was discharged on Ibrutinib. Follows with Dr. Ybarra in [place]. Admitted 03/29 d/t concern for disease progression. Seen by local power generating plant operator 03/28 and was found to have a [...] HLH based on cytopenias, LFTs, LDH, fevers, HOTHOUSE WORKER symptoms. Bone marrow biopsy 03/31 extensively involved [...] MD [address] [place] [address] 07/27/2018 Office Visit Hematology 07/27/2018 Infusion Visit Chemotherapy 07/28/2018 Infusion Visit Chemotherapy Linda Hsu MD [address] [place] [address] 07/29/2018 Infusion Visit Chemotherapy 08/24/2018 Office Visit Hematology Linda Hsu MD [address] [place] [address] 08/24/2018 Infusion Visit Chemotherapy 08/25/2018 [...] who to contact with questions or concerns. [facility] provided Clem with education related to above. as of this encounter Procedures Procedure Name Priority Date/Time Associated Diagnosis Comments LABS (OUTSIDE) 07/13/2018 12:00 AM EST in this encounter Results LABS (OUTSIDE) (07/13/2018) Narrative Performed At in this encounter
--- OUTSIDE RECORDS SUMMARY | 2018-09-24 11:34 | XMS RPT_ITS | Summary of Care ---
:1945 Author Organization [facility] Address [address] [place] [address] Phone Care Team Providers Name Role Phone LorettaRolando neri Primary Care Provider Corrie Pope RN Bedside Nurse Unavailable Karri Ybarra [facility] Referring 1 Karri Ybarra [facility] Unavailable Kasey De Leon RN Bedside Nurse Unavailable Linda Hsu MD Unavailable Tamara Lopez RN Unavailable Unavailable Encounter Details Date Type Department Care Team Description 08/03/2018 Notes/Results Only NOTES/RESULTS Other, Other Allergies Active [...] FOR JOINT mouth daily. HEALTH PO) ergocalciferol 64775 Take 50,000 Units Active units Cap by [...] Patient follows with Dr. Ybarra locally at [place] for labs, line care and transfusion needs. 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 CSF <3 WBC, flow [...] del17p and complex karyotype. 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 CT chest showed borderline , enlarged non-specific left hilar LN. 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 Surg path from bone marrow biopsy was consistent with MCL with t(11;14). Was discharged on Ibrutinib. Follows with Dr. Ybarra in [place]. Admitted 03/29 d/t concern for disease progression. Seen by local furniture removalist's assistant 03/28 and was found to have a [...] HLH based on cytopenias, LFTs, LDH, fevers, CATTLE SORTER symptoms. Bone marrow biopsy 03/31 extensively involved [...] Encounters Date Type Specialty Care Team Description 08/24/2018 Office Visit Hematology Linda Hsu MD [address] [place] [address] 08/24/2018 Infusion Visit Chemotherapy 08/25/2018 [...] who to contact with questions or concerns. [facility] provided Clem with education related to above. as of this encounter Procedures Procedure Name Priority Date/Time Associated Diagnosis Comments LABS (OUTSIDE) 08/03/2018 12:00 AM EST in this encounter Results LABS (OUTSIDE) (08/03/2018) Narrative Performed At in this encounter
--- OUTSIDE RECORDS SUMMARY | 2018-09-24 11:34 | XMS RPT_ITS | Summary of Care ---
:1945 Author Organization [facility] Address [address] [place] [address] Phone Care Team Providers Name Role Phone LorettaRolando neri Primary Care Provider Corrie Pope RN Bedside Nurse Unavailable Karri Ybarra [facility] Referring [address] [facility] Unavailable Kasey De Leon RN Bedside Nurse Unavailable Linda Hsu MD Unavailable Tamara Lopez RN Unavailable Unavailable Encounter Details Date Type Department Care Team Description 07/06/2018 Notes/Results Only NOTES/RESULTS Other, Other Allergies Active [...] FOR JOINT mouth daily. HEALTH PO) ergocalciferol 30637 Take 50,000 Units Active units Cap by [...] Patient follows with Dr. Ybarra locally at [place] for labs, line care and transfusion needs. [...] and he denies any plans for self-harm. Optical Laboratory Technician has met with him and also discussed [...] LP in flu[place] 04/04 to evaluate for ENGINEERING CLERK involvement of lymphoma. CSF <3 WBC, flow [...] del17p and complex karyotype. 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 CT chest showed borderline , enlarged non-specific left hilar LN. 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 Surg path from bone marrow biopsy was consistent with MCL with t(11;14). Was discharged on Ibrutinib. Follows with Dr. Ybarra in [place]. Admitted 03/29 d/t concern for disease progression. Seen by local jde developer 03/28 and was found to have a [...] HLH based on cytopenias, LFTs, LDH, fevers, ENGINEERING CLERK symptoms. Bone marrow biopsy 03/31 extensively involved [...] Date Type Specialty Care Team Description 07/26/2018 Appointment Nuclear Medicine Linda Hsu MD [address] [place] [address] 07/27/2018 Office Visit Hematology 07/27/2018 Infusion Visit Chemotherapy 07/28/2018 Infusion Visit Chemotherapy 07/29/2018 Infusion Visit Chemotherapy 08/24/2018 Office Visit Hematology Linda Hsu MD [address] [place] [id number] 08/24/2018 Infusion Visit Chemotherapy 08/25/2018 Infusion Visit [...] Problems Progress Lifestyle Lifestyle No Tamara Lopez, RN Note: Clem Parvez and caregiver will be knowledgeable of plan of care. Clem will be compliant with treatment regimen. As evidenced by patient? s ability to recognize barriers to compliance and know who to contact with questions or concerns. [facility] provided Clem with education related to above. as of this encounter Procedures Procedure Name Priority Date/Time Associated Diagnosis Comments LABS (OUTSIDE) 07/06/2018 12:00 AM EST in this encounter Results LABS (OUTSIDE) (07/06/2018) Narrative Performed At in this encounter
--- OUTSIDE RECORDS SUMMARY | 2018-09-24 11:37 | XMS RPT_ITS ---
:1945 Author Organization [place] Support Name Relationship Address Phone R Unavailable Unavailable Unavailable TEENA, TED Unavailable [address] + [place] [address] R Unavailable Unavailable Unavailable TEENA, TED Unavailable [address] + [place] [address] R Unavailable Unavailable Unavailable TEENA, TED Unavailable [address] + [place] [address] R Unavailable Unavailable Unavailable TEENA, TED Unavailable [address] + [place] [address] TEENA, TED Unavailable [address] + [place] [address] TEENA, ANCELMO Unavailable Unavailable Unavailable TEENA, LEXI Unavailable Unavailable Unavailable TEENA, TED Unavailable [address] + [place] [address] TEENA, ANCELMO Unavailable Unavailable Unavailable TEENA, LEXI Unavailable Unavailable Unavailable TEENA, TED Unavailable [address] + [place] [address] TEENA, ANCELMO Unavailable Unavailable Unavailable TEENA, LEXI Unavailable Unavailable Unavailable TEENA, TED Unavailable [phone] [place] [address] TEENA, ANCELMO Unavailable Unavailable Unavailable TEENA, LEXI Unavailable Unavailable Unavailable TEENA, TED Unavailable [address] + [place] [address] TEENA, TED Unavailable [address] + [place] [address] R Unavailable Unavailable Unavailable TEENA, TED Unavailable [address] + [place] [address] R Unavailable Unavailable Unavailable TEENA, TED Unavailable [address] + [place] [address] TEENA, TED Unavailable [address] + [place] [address] TEENA, ANCELMO Unavailable Unavailable Unavailable TEENA, LEXI Unavailable Unavailable Unavailable TEENA, TED Unavailable [address] + [place] [address] TEENA, ANCELMO Unavailable Unavailable Unavailable TEENA, LEXI Unavailable Unavailable Unavailable TEENA, TED Unavailable [address] + [place] [address] TEENA, ANCELMO Unavailable Unavailable Unavailable TEENA, LEXI Unavailable Unavailable Unavailable TEENA, TED Unavailable [address] + [place] [address] TEENA, ANCELMO Unavailable Unavailable Unavailable TEENA, LEXI Unavailable Unavailable Unavailable TEENA, TED Unavailable [address] + [place] [address] TEENA, ANCELMO Unavailable Unavailable Unavailable TEENA, LEXI Unavailable Unavailable Unavailable TEENA, TED Unavailable [address] + [place] [address] TEENA, ANCELMO Unavailable Unavailable Unavailable TEENA, LEXI Unavailable Unavailable Unavailable R Unavailable Unavailable Unavailable TEENA, TED Unavailable [address] + [place] [address] TEENA, TED Unavailable [address] + [place] [address] TEENA, ANCELMO Unavailable Unavailable Unavailable TEENA, LEXI Unavailable Unavailable Unavailable TEENA, TED Unavailable [address] + [place] [address] TEENA, ANCELMO Unavailable Unavailable Unavailable TEENA, LEXI Unavailable Unavailable Unavailable TEENA, TED Unavailable [address] + [place] [address] TEENA, ANCELMO Unavailable Unavailable Unavailable TEENA, LEXI Unavailable Unavailable Unavailable TEENA, ETD Unavailable [address] + [place] [address] TEENA, ANCELMO Unavailable Unavailable Unavailable TEENA, LEXI Unavailable Unavailable Unavailable R Unavailable Unavailable Unavailable TEENA, TED Unavailable [address] + [place] [address] R Unavailable Unavailable Unavailable TEENA, TED Unavailable [address] + [place] [address] R Unavailable Unavailable Unavailable TEENA, TED Unavailable [address] + [place] [address] TEENA, TED Unavailable [address] + [place] [address] TEENA, ANCELMO Unavailable Unavailable Unavailable TEENA, LEXI Unavailable Unavailable Unavailable TEENA, TED Unavailable [address] + [place] [address] TEENA, ANCELMO Unavailable Unavailable Unavailable TEENA, LEXI Unavailable Unavailable Unavailable TEENA, TED Unavailable [address] + [place] [address] TEENA, ANCELMO Unavailable Unavailable Unavailable TEENA, LEXI Unavailable Unavailable Unavailable TEENA, TED Unavailable [address] + [place] [address] TEENA, ANCELMO Unavailable Unavailable Unavailable TEENA, LEXI Unavailable Unavailable Unavailable R Unavailable Unavailable Unavailable TEENA, TED Unavailable [address] + [place] [address] R Unavailable Unavailable Unavailable TEENA, TED Unavailable [address] + [place] [address] R Unavailable Unavailable Unavailable TEENA, TED Unavailable [address] + [place] [address] TEENA, TED Unavailable [address] + [place] [address] TEENA, ANCELMO Unavailable Unavailable Unavailable TEENA, LEXI Unavailable Unavailable Unavailable TEENA, TED Unavailable [address] + [place] [address] TEENA, ANCELMO Unavailable Unavailable Unavailable TEENA, LEXI Unavailable Unavailable Unavailable TEENA, TED Unavailable [address] + [place] [address] TEENA, ANCELMO Unavailable Unavailable Unavailable TEENA, LEXI Unavailable Unavailable Unavailable TEENA, TED Unavailable [address] + [place] [address] TEENA, ANCELMO Unavailable Unavailable Unavailable TEENA, LEXI Unavailable Unavailable Unavailable TEENA, TED Unavailable [address] + [place] [address] TEENA, ANCELMO Unavailable Unavailable Unavailable TEENA, LEXI Unavailable Unavailable Unavailable R Unavailable Unavailable Unavailable TEENA, TED Unavailable [address] + [place] [address] R Unavailable Unavailable Unavailable TEENA, TED Unavailable [address] + [place] [address] R Unavailable Unavailable Unavailable TEENA, TED Unavailable [address] + [place] [address] TEENA, TED Unavailable [address] [facility] [address] + [place] [address] TEENA, ANCELMO Unavailable Unavailable Unavailable TEENA, LEXI Unavailable Unavailable Unavailable R Unavailable Unavailable Unavailable TEENA, TED Unavailable [address] + [place] [address] R Unavailable Unavailable Unavailable TEENA, TED Unavailable [address] + [place] [address] R Unavailable Unavailable Unavailable TEENA, TED Unavailable [address] + [place] [address] TEENA, TED Unavailable [address] + [place] [address] TEENA, ANCELMO Unavailable Unavailable Unavailable TEENA, LEXI Unavailable Unavailable Unavailable R Unavailable Unavailable Unavailable TEENA, TED Unavailable [address] + [place] [address] R Unavailable Unavailable Unavailable TEENA, TED Unavailable [address] + [place] [address] R Unavailable Unavailable Unavailable TEENA, TED Unavailable [address] + [place] [address] R Unavailable Unavailable Unavailable TED DICKINSON Unavailable [address] + [place] [address] R Unavailable Unavailable Unavailable TEENA, TED Unavailable [address] [facility] [address] + [place] [address] Care Team Providers Name Role Phone PHYSICIAN, NOT RECORDED Attending Unavailable MANDIE GONSALEZ, HARDEEP Saha JR. Primary Care Unavailable DEEPA BYNUM Admitting Unavailable JOANN GIBSON Referring Unavailable DEEPTI, LUIS ALBERTO A Primary Care Unavailable JEFFREY ALMAGUER Attending Unavailable STEPHANIE VILLALTA Admitting Unavailable KARRI YBARRA Referring Unavailable DEEPTI LUIS ALBERTO A Primary Care Unavailable ZEENAT GREWAL Attending Unavailable ZEENAT GREWAL Attending Unavailable ZEENAT GREWAL Referring Unavailable DEEPTI, LUIS ALBERTO A Primary Care Unavailable ZEENAT GREWAL Attending Unavailable SELF, SELF Referring Unavailable DEEPTI, LUIS ALBERTO A Primary Care Unavailable KISHORE AMARO Attending Unavailable KISHORE AMARO Referring Unavailable DEEPTI, LUIS ALBERTO A Primary Care Unavailable ZEENAT GREWAL Attending Unavailable MARGASZEENAT Referring Unavailable DEEPTI, LUIS ALBERTO A Primary Care Unavailable MADDOCKSZEENAT Attending Unavailable LEONARDDOCKSZEENAT Referring Unavailable DEEPTI, LUIS ALBERTO A Primary Care Unavailable MADDOCKSZEENAT Attending Unavailable ZEENAT GREWAL Referring Unavailable DEEPTI, LUIS ALBERTO A Primary Care Unavailable MADZEENAT SOTO Attending Unavailable DEEPTI, LUIS ALBERTO A Referring Unavailable DEEPTI, LUIS ALBERTO A Primary Care Unavailable MADDOCKSZEENAT Attending Unavailable LEONARDDOCKSZEENAT Referring Unavailable DEEPTI, LUIS ALBERTO A Primary Care Unavailable MADDOCKSZEENAT Attending Unavailable SHAWNACKSZEENAT Referring Unavailable DEEPTI, LUIS ALBERTO A Primary Care Unavailable MADDODOLORESSZEENAT Attending Unavailable DEEPTI, LUIS ALBERTO A Referring Unavailable DEEPTI, LUIS ALBERTO A Primary Care Unavailable ZEENAT GREWAL Attending Unavailable ZEENAT GREWAL Referring Unavailable DEEPTI, LUIS ALBERTO A Primary Care Unavailable ZEENAT GREWAL Attending Unavailable SHAWNACKSZEENAT Referring Unavailable DEEPTI, LUIS ALBERTO A Primary Care Unavailable ZEENAT GREWAL Attending Unavailable ZEENAT GREWAL Referring Unavailable DEEPTI, LUIS ALBERTO A Primary Care Unavailable ZEENAT GREWAL Attending Unavailable MARGASZEENAT Referring Unavailable DEEPTI, LUIS ALBERTO A Primary Care Unavailable ZEENAT GREWAL Attending Unavailable ZEENAT GREWAL Referring Unavailable DEEPTI, LUIS ALBERTO A Primary Care Unavailable DEEPTI, LUIS ALBERTO A Referring Unavailable DEEPTI, LUIS ALBERTO A Primary Care Unavailable AYANA AZEVEDO Attending Unavailable LESTER EATON Attending Unavailable KISHORE AMARO Referring Unavailable DEEPTI, LUIS ALBERTO A Primary Care Unavailable ZEENAT GREWAL Attending Unavailable ZEENAT GREWAL Referring Unavailable DEEPTI, LUIS ALBERTO A Primary Care Unavailable ZEENAT GREWAL Attending Unavailable MARGASZEENAT Referring Unavailable DEEPTI, LUIS ALBERTO A Primary Care Unavailable ZEENAT GREWAL Attending Unavailable ZEENAT GREWAL Referring Unavailable DEEPTI, LUIS ALBERTO A Primary Care Unavailable LEONARDDOCKSZEENAT Attending Unavailable DEEPTI, LUIS ALBERTO A Referring Unavailable DEEPTI, LUIS ALBERTO A Primary Care Unavailable MADDOCKS, ZEENAT J Attending Unavailable MADDOCKS, ZEENAT J Referring Unavailable DEEPTI, LUIS ALBERTO A Primary Care Unavailable MADDOCKS, ZEENAT J Attending Unavailable MADDOCKS, ZEENAT J Referring Unavailable DEEPTI, LUIS ALBERTO A Primary Care Unavailable ADRIANNE PUGH Attending Unavailable ADRIANNE PUGH Referring Unavailable Deepti, Luis Alber[place] Primary Care Unavailable Prah, Karri Attending Unavailable ADRIANNE PUGH Referring Unavailable Deepti, Luis Alber[place] Primary Care Unavailable Prah, Karri Consulting Unavailable Prah, Karri Attending Unavailable Deepti, Luis Alberto Primary Care Unavailable ADRIANNE PUGH Referring Unavailable Prah, Karri Consulting Unavailable Prah, Karri Attending Unavailable Deepti, Luis Alber[place] Primary Care Unavailable Prah, Karri Consulting Unavailable Prah, Karri Attending Unavailable Deepti, Luis Alberto Primary Care Unavailable Prah, Karri Attending Unavailable ADRIANNE PUGH Referring Unavailable Deepti, Luis Alberto Primary Care Unavailable Prah, Karri Consulting Unavailable Deepti, Luis Alber[place] Attending Unavailable Deepti, Luis Alberto Primary Care Unavailable Deepti, Luis Alberto Primary Care Unavailable Roderick Early Attending Unavailable Deepti, Luis Alber[place] Attending Unavailable Deepti, Luis Alberto Referring Unavailable Deepti, Luis Alberto Primary Care Unavailable Deepti, Luis Alberto Primary Care Unavailable Joann Gibson Attending Unavailable Prah, Karri Attending Unavailable Prah, Karri Referring Unavailable Deepti, Luis Alberto Primary Care Unavailable Prah, Karri Consulting Unavailable Prah, Karri Attending Unavailable Prah, Karri Referring Unavailable Deepti, Luis Alber[place] Primary Care Unavailable Prah, Karri Consulting Unavailable Prah, Karri Attending Unavailable Prah, Karri Referring Unavailable Deepti, Luis Alber[place] Primary Care Unavailable Prah, Karri Consulting Unavailable Radha Vera Attending Unavailable Prah, Karri Attending Unavailable Prah, Karri Referring Unavailable Deepti, Luis Alber[place] Primary Care Unavailable Prah, Karri Attending Unavailable Deepti, Luis Alber[place] Referring Unavailable Deepti, Luis [place] Primary Care Unavailable Prah, Karri Consulting Unavailable ADRIANNE PUGH Attending Unavailable ADRIANNE PUGH Referring Unavailable Deepti, Luis Alber[place] Primary Care Unavailable Deepti, Luis Alberto Primary Care Unavailable Isaac, Jose Consulting Unavailable ADRIANNE PUGH Attending Unavailable ADRIANNE PUGH Referring Unavailable Prah, Karri Attending Unavailable ADRIANNE PUGH Referring Unavailable Deepti, Luis [place] Primary Care Unavailable Prah, Karri Consulting Unavailable ADRIANNE PUGH Attending Unavailable ADRIANNE PUGH Referring Unavailable Deepti, Luis Alber[place] Primary Care Unavailable Deepti, Luis Alberto Primary Care Unavailable Rani Chaves Attending Unavailable Deepti, Luis Alberto Primary Care Unavailable ADRIANNE PUGH Consulting Unavailable ADRIANNE PUGH Attending Unavailable ADRIANNE PUGH Referring Unavailable Deepti, Luis Alber[place] Primary Care Unavailable Tate Karri Attending Unavailable Deepti, Luis Alberto Primary Care Unavailable ADRIANNE PUGH Attending Unavailable ADRIANNE PUHG Referring Unavailable PROBLEMS PROBLEMS DATE TYPE CONDITION / CODE ATTENDING STATUS SOURCE 09/18/2018 Unknown C83.38 - Diffuse PraKarri trimble Active [place] large B-cell [facility] lymphoma, lymph Hospital nodes of multiple Repository sites / C83.38(ICD-10) 09/11/2018 Unknown C83.10 - Mantle PraKarri trimble Active [place] cell lymphoma, Community unspecified site / Hospital C83.10(ICD-10) Repository 07/27/2018 Admitting Other malaise / USCIO, AYANA Active [place] diagnosis R53.81(ICD-10) [facility] Repository 07/26/2018 Admitting Mantle cell MADDOCKS, ZEENAT Active [place] [facility] diagnosis lymphoma, [facility] extranodal and [facility] solid organ sites / Center C83.19(ICD-10) Repository 05/22/2018 Unknown Z85.72 - Personal Karri Ybarra Active [place] history of [facility] lymphomas / Repository Z85.72(ICD-10) 05/12/2018 Unknown D64.9 - Anemia, ADRIANNE PUGH Active [place] unspecified / Community D64.9(ICD-10) Hospital Repository 04/02/2018 Admitting Unspecified mood MADDOCKS, ZEENAT Active [place] diagnosis (affective) [facility] disorder / [facility] F39(ICD-10) Center Repository 03/30/2018 Admitting Pain, unspecified / MADDOCKS, ZEENAT Active [place] diagnosis R52(ICD-10) [facility] Repository 03/29/2018 Admitting Mantle cell MADDOCKS, ZEENAT Active [facility] [facility] diagnosis lymphoma, [facility] unspecified site / [facility] C83.10(ICD-10) Center Repository 02/17/2018 Admitting Other pancytopenia JEFFREY ALMAGUER Active [place] diagnosis / D61.818(ICD-10) [facility] Repository 02/13/2018 Unknown R53.83 - Other Luis Alberto Burgos Active [place] fatigue / Community R53.83(ICD-10) Hospital Repository 02/13/2018 Unknown D61.818 - Other Luis Alberto Burgos Active [place] pancytopenia / Community D61.818(ICD-10) Hospital Repository 02/13/2018 Unknown E83.52 - Luis Alberto Burgos Active [place] Hypercalcemia / Community E83.52(ICD-10) Hospital Repository 02/13/2018 Unknown E80.6 - Other Luis Alberto Burgos Active [place] disorders of [facility] metabolism / Repository E80.6(ICD-10) 02/13/2018 Unknown N18.3 - Chronic Luis Alberto Burgos Active [place] kidney disease, [facility] stage 3 (moderate) Hospital / N18.3(ICD-10) Repository PROCEDURES PROCEDURES No Procedure Records FoundRESULTS RESULTS PET/CT TUMOR BASE Observed: 09/18/2018 Status: F Source: [facility] SUBS 11:06 AM [facility] REPOSITORY [facility] Imaging Services [address] [place] [address] PET/CT Tumor Base -Thigh Subs MR#: [id number] Acct: [id number] Name: LEXI DICKINSON Rep #: [id number] : 1945 M 73 From: Hardeep Romano DO PCP: Luis Alberto Burgos DO Status: REG RCR Study: PET/CT Tumor Base -Thigh Subs Date of Exam: 09/18/18 Exam# [id number] Ordering Dr: Karri Ybarra MD EXAMINATION: FDG PET CT INDICATIONS: 73-year-old male with reported history of lymphoma presenting for restaging examination. COMPARISON EXAMINATION: CT of the abdomen and pelvis report dated 06/12/18. TECHNIQUE: Following the intravenous administration of 15.3 mCi of F-18 deoxyglucose via the left antecubital fossa, multiplanar image acquisitions of the neck, chest, abdomen and pelvis to level of mid thigh, obtained at one hour post radiopharmaceutical administration contemporaneously interpreted with the current CT of the neck, chest, abdomen and pelvis to level of mid thigh, dated 09/18/[address] of the abdomen and pelvis report dated 06/12/18 reveal: SERUM GLUCOSE LEVEL: 128 mg/dl. HEIGHT: 67 inches. WEIGHT: 165 lbs. FINDINGS: 1. There is no quantitative scintigraphic evidence of abnormal increased glucose metabolism on meticulous inspection of whole body acquisitions to include all three axis reconstructions. 2. Normal physiologic distribution of the radiopharmaceutical is apparent in the hepatic and splenic parenchyma, both renal units, bladder and visualized intestinal tract. There is uniform distribution of the radiopharmaceutical concentration defined in the visualized cerebellar hemispheres and cerebral cortical structures.? Diffuse intestinal tract activity is noted throughout all four quadrants of the abdominal-pelvic retroperitoneum, mesentery consistent with normal physiologic distribution of the radiopharmaceutical. Prominent glucose metabolism is defined in the oral cavity and distribution of the orbicularis mary ann musculature most consistent with physiologic distribution of the radiopharmaceutical. Pertinent CT findings are as follows. CHEST: Atherosclerotic calcification is defined in the thoracic aorta without evidence of dilatation, aneurysm formation. Coronary arterial calcification is observed. Calcified and noncalcified mediastinal and thoracic perihilar soft tissue is non-glucose avid. Scattered bilateral axillary subcentimeter soft tissue densities are metabolic. There are no parenchymal densities-nodules noted in the right-left hemithorax manifesting quantitatively significant increased glucose metabolism. ABDOMEN AND PELVIS: Atherosclerotic calcification is defined in the abdominal aorta without evidence of dilatation, aneurysm formation. Pelvic arterial calcification is observed. The gallbladder is surgically absent. Calcified granuloma formation is noted within the splenic parenchyma. Fat-containing bilateral inguinal hernias are noted. Right- left inguinal soft tissue densities demonstrate no evidence of increased glucose metabolism. Colonic diverticulosis is defined. Calcified phlebolith formation is noted in the bilateral lower hemipelvis. Dystrophic calcification is manifest within the prostate gland without evidence of quantitatively significant enhanced FDG uptake. SKELETAL: Degenerative changes defined in the cervical, thoracic and lumbar spine demonstrate no evidence for glucose hypermetabolism. PET/PET/CT Tumor Base -Thigh Subs IMPRESSION: 1. NEGATIVE EXAMINATION. There is no definitive quantitative scintigraphic evidence of recurrent-viable neoplasm. 2. Prominent radiopharmaceutical concentration noted within the oral cavity is most consistent with physiologic distribution of the radiopharmaceutical. If soft tissue mass formation is suspected, clinical examination is recommended. Electronic Signature Hardeep Romano D.O. Electronically Signed: Hardeep Romano DO at 23:48 EST Tel , Service support , CC: Karri Ybarra MD; Luis Alberto Burgos DO [employer]ist: Signed ONCOLOGY VISIT REPORT Observed: 09/11/2018 Status: F Source: [facility] 3:16 PM [facility] REPOSITORY [facility] Medical Oncology [address] [place] [address] OFFICE VISIT Date of Service: 09/11/18 1511 MR#: [id number] Acct: [id number] Name: LEXI DICKINSON Rep #: [id number] : 1945 From: Karri Ybarra MD Age/Sex: 73/M Location: [facility] Status: Signed Subjective - Date of Service Date of Service:: 09/11/18 - Chief Complaint F/u for Mantle cell lymphoma and therapy. - History of Present Illness 73y.o.man was diagnosed with NHL stage IIA, extranodal, DLBC, 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 He was treated with 4 cycles of R-CHOP followed by 2 additional cycles of Rituxan completed on 06/07/2016. 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 He developed new onset anemia, was found to have about 55% blast. 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 CT c/a/p on 02/18/2018 showed left hilar adenopathy. He was started on Ibrutinib 560mg daily on 02/20/2018. He had progressive lymphocytosis on 03/28/2018, was referred to [facility]. He started Bendamustine and Rituxan on 04/06/2018, which was changed to R-TRAM during the 2nd cycle. He finished the 6th cycle on 08/24/2018. He had PLT transfusion on 09/08/2017. Comes for follow up. - Past Medical/Social History Past Medical History Past Medical History: Anxiety,Hyperlipidemia,Hypertension Cancer: Leukemia,Lymphoma Other Cancer History: hx of oral chemo-not taking now. Past Surgical History Surgical: Cholecystectomy Other Surgical History: BILATERAL MYRINGOTOMY WITH TYMPANOSTOMY TUBES PLACED Family History Paternal Past Medical History: Diabetes mellitus,Heart disease Maternal Past Medical History: Diabetes mellitus,Heart disease Social History Social History: No changes Smoking Status Never smoker Review of Systems Constitutional:: Reports: Fatigue, Sweats. Denies: Fever Cardiovascular:: Denies: Chest pain, Palpitations, Dyspnea on exertion, Orthopnea, PND, Shortness of breath Respiratory: Denies: Cough, Hemoptysis, Shortness of Breath, Wheezing Gastrointestinal:: Denies: Abdominal pain, Nausea, Vomiting, Diarrhea, Constipation, Hematochezia Genitourinary: Denies: Dysuria, Hematuria, 15, Flank pain Musculoskeletal:: Denies: Back pain, Myalgia, Arthralgia Skin: Denies: Rash, Skin Changes, Wounds Neurological:: Denies: Headache, Dizziness, Visual changes, Tinnitus, Hearing loss Psychiatric: Denies: Anxiety, Depression, Homicidal Ideations, Suicidal Ideations Vital Signs Height 5 ft 9 in Weight: 75.75 kg Weight in Pounds 167.0 lbs Pulse Ox 99 - Physical Exam General: Alert, Oriented x3, No apparent distress Laboratory Data: Laboratory Tests WBC 7.4 (4.4-11.0) K/mm3 RBC 2.43 L (4.6-6.2) M/mm3 Hgb 8.5 L (13.0-16.5) g/dl Hct 26.1 L (40-54) % MCV 107.4 H (80-94) fL Assessment and Plan Mantle cell lymphoma-now on R-TRAM, finished 6th cycle on 08/24/2018. Pancytopenia due to chemotherapy. Got Neulasta. PLT and ANC are normal now. Non-Hodgkin's-diffuse large B cell, stage IIA, in remission. Plan is to observe, obtain PET/CT and bone marrow bx in about 4 wks. Will start maintenance Rituxan in about 6 weeks. Return to clinic 4 weeks with CBC/CMP/LDH. Medications: Prescriptions This Visit Medication Instructions Recorded Omeprazole [Prilosec] 20 mg PO DAILY 11/24/16 Acyclovir [Zovirax] 400 mg PO BID 02/27/18 Primary Care Provider: Luis Alberto Burgos DO Referring Provider: - Problem List (1) History of non-Hodgkin's lymphoma Status: Chronic (2) Mantle cell lymphoma Status: Chronic Qualifiers: Lymphoma site: unspecified region Qualified Code(s): C83.10 - Mantle cell lymphoma, unspecified site Code Visit Office Visits / Consults: [id number] OV L3 Est 09/11/18 6014 <Electronically signed by Karri Ybarra MD> Date Karri Ybarra MD Cosigner Signature: Date (if applicable) CC: CBC W/DIFF, AUTOMATED Collected: 09/11/2018 Status: F Source: [facility] 2:18 PM [facility] REPOSITORY Order Comment: Reason for Laboratory Test . TYPE CODE TESTS RESULT OUT OF RANGE REFERENCE UNITS LAB L100.1000 4.4-11.0 K/mm3 Normal WBC 7.4 LAB L100.1200 4.6-6.2 M/mm3 Low RBC 2.43 LAB L100.1300 13.0-16.5 g/dl Low HGB 8.5 LAB L100.1400 40-54 % Low HCT 26.1 LAB L100.1500 80-94 fL High MCV 107.4 LAB L100.1600 27.0-32.0 pg High MCH 35.0 LAB L100.1700 32-36 g/gl Normal MCHC 32.6 LAB L100.1810 11.6-14.6 % High RDW CV 18.8 LAB L100.1820 35.1-43.9 fl High RDW SD 70.0 LAB L100.1900 150-450 K/mm3 Low PLT 100 LAB L100.2000 6.2-12.0 fl Normal MPV 8.9 LAB L100.2100 47-70 % High NEUT% 74.8 LAB L100.2200 19-41 % Low LY% 10.4 LAB L100.2300 0-10 % High MONO% 12.1 LAB L100.2400 0-5 % Normal EO% 0.8 LAB L100.2500 0-1 % Normal BASO% 0.1 LAB L100.2550 0.0-0.9 % High IM GRAN % 1.800 Result Comment: IG% - Immature Granulocytes (promyelocytes, myelocytes and metamyelocytes) > 1% indicates that a LEFT SHIFT is Present. LAB L100.2620 2.0-7.7 X10 3/uL Normal Absolute Neut 5.6 LAB L100.2720 0.83-4.51 X10 3/ul Low Absolute Lymph 0.77 LAB L100.4500 Normal SMEAR COMMENT COMMENT Result Comment: SLIDE SCANNED - 1+ ANISO. Performed By: #### L100.0100 #### [facility] [address] [place], [place], [address] COMPREHENSIVE METABOLIC Collected: 09/11/2018 Status: F Source: [facility] 2:18 PM [facility] REPOSITORY Order Comment: Reason for Laboratory Test . TYPE CODE TESTS RESULT OUT OF RANGE REFERENCE UNITS LAB L501.0100 74-106 mg/dL High GLU 197 Result Comment: Fasting Glucose result greater than or equal to 126 mg/dL suggests DIABETES MELLITUS per A.D.A. criteria. Please note revised GLUCOSE reference range effective 2017. LAB L501.1000 7-18 mg/dL Normal BUN 15 LAB L501.1100 0.70-1.30 mg/dL High CREAT,SERUM 1.55 Result Comment: The validity of the calculated GFR AND GFRAA in patients over 70 years has not been determined. Clinical correlation is essential. LAB L501.1110 >60 mL/min Low EST GFR 47 Result Comment: Non- GFR Calc LAB L501.1115 >60 mL/min Low EST GFR - AA 57 Result Comment: GFR Calc LAB L501.1255 ml/min Normal Estimated CRCL 42.45 LAB L501.1300 10-20 RATIO Low BUN/CRE 9.7 LAB L501.1500 6.4-8. g/dL Normal 2 T PROT 7.1 LAB L501.1800 3.2-5. g/dL Normal 0 ALB 4.1 LAB L501.1950 2.2-4. g/dL Normal 2 GLOB 3.0 LAB L501.2000 0.9-2. RATIO Normal 4 A/G 1.4 LAB L501.2200 8.5-10 mg/dL Normal .1 CA 9.2 LAB L501.4100 15-37 U/L Normal AST 18 LAB L501.4305 45-117 U/L Normal ALK P 111 LAB L501.4405 16-61 U/L Normal ALT 33 LAB L501.4600 0.20-1 mg/dL Normal .00 T BILI 0.30 LAB L501.5300 136-14 mmol/L Normal 5 NA 142 LAB L501.5600 3.5-5. mmol/L Normal 1 K 3.9 LAB L501.5900 98-107 mmol/L Normal CL 104 LAB L501.6100 21.0-3 mmol/L Normal 2.0 CO2 28.0 LAB L501.6200 5-15 Normal GAP 10 Performed By: #### L500.4050 #### [facility] [address] [place], [place], [address] ABO RH BLOOD TYPE, Collected: 09/07/2018 Status: P Source: [place] [facility] 10:42 AM [facility] REPOSITORY Order Comment: CMV NEG? N Give When? 09/08/18 Irradiated? Y TYPE CODE TESTS RESULT OUT OF RANGE REFERENCE UNITS LAB B10.0800 O Normal BLOOD POSITIVE TYPE GEL Performed By: #### B10.0010 #### [facility] [place], [place], [address] ABO RH BLOOD TYPE, Collected: 09/07/2018 Status: F Source: [place] [facility] 10:42 AM [facility] REPOSITORY Order Comment: CMV NEG? N Give When? 09/08/18 Irradiated? Y TYPE CODE TESTS RESULT OUT OF RANGE REFERENCE UNITS LAB B10.0800 O Normal BLOOD POSITIVE TYPE GEL Performed By: #### B10.0010 #### [facility] [address] [place], [place], [address] PPHR Collected: 09/07/2018 Status: F Source: [place] 10:42 AM [facility] REPOSITORY TYPE CODE TESTS RESULT OUT OF REFERENCE UNITS RANGE LAB U100.0700 [id number] TRANSFUSED PRODUCT: Platelets Apheresis PPHR LR SD COUNT: 1 Performed By: #### U100.0700 #### [facility] - refer to report for specific site CBC W/DIFF, AUTOMATED Collected: 09/07/2018 Status: C Source: [place] 10:38 AM [facility] REPOSITORY Order Comment: Reason for Laboratory Test DRAW BLOOD BANK TUBE CRITICAL VALUE VERIFIED. CALLED TO MAYKEL 09/07/18 Dejah2 Chanel Julio. RESULTS READ BACK BY GEO . TYPE CODE TESTS RESULT OUT OF RANGE REFERENCE UNITS LAB L100.1000 4.4-11.0 K/mm3 Low WBC 3.6 LAB L100.1200 4.6-6.2 M/mm3 Low RBC 2.25 LAB L100.1300 13.0-16.5 g/dl Low HGB 7.9 LAB L100.1400 40-54 % Low HCT 23.5 LAB L100.1500 80-94 fL High MCV 104.4 LAB L100.1600 27.0-32.0 pg High MCH 35.1 LAB L100.1700 32-36 g/gl Normal MCHC 33.6 LAB L100.1810 11.6-14.6 % High RDW CV 17.8 LAB L100.1820 35.1-43.9 fl High RDW SD 66.9 LAB L100.1900 150-450 K/mm3 Low alert PLT 7 LAB L100.2000 6.2-12.0 fl Normal MPV 8.6 LAB L100.2100 47-70 % Normal NEUT% 66.8 LAB L100.2200 19-41 % Low LY% 14.2 LAB L100.2300 0-10 % High MONO% 15.9 LAB L100.2400 0-5 % Normal EO% 1.4 LAB L100.2500 0-1 % Normal BASO% 0.0 LAB L100.2550 0.0-0.9 % High IM GRAN % 1.700 Result Comment: IG% - Immature Granulocytes (promyelocytes, myelocytes and metamyelocytes) > 1% indicates that a LEFT SHIFT is Present. LAB L100.2620 2.0-7.7 X10 3/uL Normal Absolute Neut 2.4 LAB L100.2720 0.83-4.51 X10 3/ul Low Absolute Lymph 0.51 LAB L100.4500 SMEAR Normal COMMENT Result Comment: PANCYTOPENIA LAB L100.5500 ADEQ Normal MKD PLT EST DEC LAB L100.7300 Normal 2+ ANISO LAB L100.9900 Normal PATH REV Reviewed Result Comment: Pancytopenia. Clinical correlation necessary. Bolivar Abdullahi M.D. 09/08/18 AMENDED REPORT 09/08/18 1401 PATH REV previously reported as: December Performed By: #### L100.0100 #### [facility] [address] [place], [address] ONCOLOGY VISIT REPORT Observed: 09/04/2018 Status: F Source: [place] 3:20 PM [facility] REPOSITORY [facility] [address] [place] [address] OFFICE VISIT Date of Service: 09/04/18 1507 MR#: [id number] Acct: [id number] Name: LEXI DICKINSON Rep #: [id number] : 1945 From: Karri Ybarra MD Age/Sex: 73/M Location: [facility] Status: Signed Subjective - Date of Service Date of Service:: 09/04/18 - Chief Complaint F/u for Mantle cell lymphoma and therapy. - History of Present Illness 73y.o.man was diagnosed with NHL stage IIA, extranodal, DLBC, 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 He was treated with 4 cycles of R-CHOP followed by 2 additional cycles of Rituxan completed on 06/07/2016. 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 He developed new onset anemia, was found to have about 55% blast. 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 CT c/a/p on 02/18/2018 showed left hilar adenopathy. He was started on Ibrutinib 560mg daily on 02/20/2018. He had progressive lymphocytosis on 03/28/2018, was referred to [facility]. He started Bendamustine and Rituxan on 04/06/2018, which was changed to R-TRAM during the 2nd cycle. He finished the 6th cycle on 08/24/2018. He feels tired. - Past Medical/Social History Past Medical History Past Medical History: Anxiety,Hyperlipidemia,Hypertension Cancer: Leukemia,Lymphoma Other Cancer History: hx of oral chemo-not taking now. Past Surgical History Surgical: Cholecystectomy Other Surgical History: BILATERAL MYRINGOTOMY WITH TYMPANOSTOMY TUBES PLACED Family History Paternal Past Medical History: Diabetes mellitus,Heart disease Maternal Past Medical History: Diabetes mellitus,Heart disease Social History Social History: No changes Smoking Status Never smoker Review of Systems Constitutional:: Reports: Weakness, Fatigue. Denies: Fever, Sweats, Weight loss, Appetite change, Chills Cardiovascular:: Denies: Chest pain, Palpitations, Dyspnea on exertion, Orthopnea, PND, Shortness of breath Respiratory: Denies: Cough, Hemoptysis, Shortness of Breath, Wheezing Gastrointestinal:: Denies: Abdominal pain, Nausea, Vomiting, Diarrhea, Constipation, Hematochezia Genitourinary: Denies: Dysuria, Hematuria, 15, Flank pain Musculoskeletal:: Denies: Back pain, Myalgia, Arthralgia Skin: Denies: Rash, Skin Changes, Wounds Neurological:: Denies: Headache, Dizziness, Visual changes, Tinnitus, Hearing loss Psychiatric: Denies: Anxiety, Depression, Homicidal Ideations, Suicidal Ideations Vital Signs Height 5 ft 9 in Weight: 75.75 kg Weight in Pounds 167.0 lbs Pulse Ox 99 - Physical Exam General: Alert, Oriented x3, No apparent distress HEENT: Atraumatic, PERRLA, EOMI, Normocephalic Oropharynx:: Dry mucosa Neck:: Supple, Trachea midline. Negative for: JVD, bilateral Cardiac:: Regular rate, Regular rhythm, Normal S1, Normal S2. Negative for: Murmur Lungs: Clear to auscultation, Excusion symmetrical. Negative for: Rhonchi, Wheezes Abdomen:: Bowel sounds x 4, Soft, Non-tender, Non-distended. Negative for: Hepatosplenomegaly Extremities:: Negative for: Cyanosis, Edema Neurological: Neuro grossly intact Skin:: Negative for: Lesions, Rash, Petechiae, Ecchymosis Psychiatric:: Appropriate affect, Euthymic Lymphatics:: Negative for: Cervical lymphadenopathy, Supraclavicular lymphadenopathy, Axillary lymphadenopathy Laboratory Data: Laboratory Tests WBC 0.6 L* (4.4-11.0) K/mm3 RBC 2.17 L (4.6-6.2) M/mm3 Hgb 7.6 L (13.0-16.5) g/dl Assessment and Plan Mantle cell lymphoma-now on R-TRAM, finished 6th cycle on 08/24/2018. Pancytopenia due to chemotherapy. Got Neulasta. Non-Hodgkin's-diffuse large B cell, stage IIA, in remission. Plan is to observe, transfuse Hgb if less than 7, transfuse Plt if less than 10. Recheck CBC on 09/07/2018. Should come to ER if he gets a fever. Return to clinic 1 week with CBC/CMP/LDH. Medications: Prescriptions This Visit Medication Instructions Recorded Omeprazole [Prilosec] 20 mg PO DAILY 11/24/16 Acyclovir [Zovirax] 400 mg PO BID 02/27/18 Primary Care Provider: Luis Alberto Burgos DO Referring Provider: - Problem List (1) History of non-Hodgkin's lymphoma Status: Chronic (2) Mantle cell lymphoma Status: Chronic Qualifiers: Lymphoma site: unspecified region Qualified Code(s): C83.10 - Mantle cell lymphoma, unspecified site Code Visit Office Visits / Consults: [id number] OV L5 Est 09/04/18 1520 <Electronically signed by Karri Ybarra MD> Date Karri Ybarra MD Cosigner Signature: Date (if applicable) CC: COMPREHENSIVE METABOLIC Collected: 09/04/2018 Status: F Source: [place] [facility] 1:55 PM [facility] REPOSITORY Order Comment: Reason for Laboratory Test . Serial Specimen #1, #2 or #3? 1 TYPE CODE TESTS RESULT OUT OF RANGE REFERENCE UNITS LAB L501.0100 74-106 mg/dL High GLU 108 Result Comment: Fasting Glucose result from 100 to 125 mg/dL suggests IMPAIRED HOMEOSTASIS per A.D.A. criteria. Please note revised GLUCOSE reference range effective 2017. LAB L501.1000 7-18 mg/dL High BUN 23 LAB L501.1100 0.70-1.30 mg/dL Normal CREAT,SERUM 1.15 Result Comment: The validity of the calculated GFR AND GFRAA in patients over 70 years has not been determined. Clinical correlation is essential. LAB L501.1110 >60 mL/min Normal EST GFR 66 Result Comment: Non- GFR Calc LAB L501.1115 >60 mL/min Normal EST GFR - AA 80 Result Comment: GFR Calc LAB L501.1255 ml/min Normal Estimated CRCL 57.21 LAB L501.1300 10-20 RATIO Normal BUN/CRE 20.0 LAB L501.1500 6.4-8. g/dL Normal 2 T PROT 6.6 LAB L501.1800 3.2-5. g/dL Normal 0 ALB 3.9 LAB L501.1950 2.2-4. g/dL Normal 2 GLOB 2.7 LAB L501.2000 0.9-2. RATIO Normal 4 A/G 1.4 LAB L501.2200 8.5-10 mg/dL Normal .1 CA 8.9 LAB L501.4100 15-37 U/L Low AST 14 LAB L501.4305 45-117 U/L Normal ALK P 113 LAB L501.4405 16-61 U/L Normal ALT 25 LAB L501.4600 0.20-1 mg/dL Normal .00 T BILI 0.80 LAB L501.5300 136-14 mmol/L Normal 5 NA 140 LAB L501.5600 3.5-5. mmol/L Normal 1 K 4.3 LAB L501.5900 98-107 mmol/L Normal CL 106 LAB L501.6100 21.0-3 mmol/L Normal 2.0 CO2 28.0 LAB L501.6200 5-15 Normal GAP 6 Performed By: #### L500.4050, L504.2610 #### [facility] [address] [place], [address] LDH Collected: 09/04/2018 Status: F Source: [place] 1:55 PM [facility] REPOSITORY Order Comment: Reason for Laboratory Test . Serial Specimen #1, #2 or #3? 1 TYPE CODE TESTS RESULT OUT OF RANGE REFERENCE UNITS LAB L504.2610 87-241 U/L Normal LDH 127 Performed By: #### L500.4050, L504.2610 #### [facility] [place], [address] CBC W/DIFF, AUTOMATED Collected: 09/04/2018 Status: C Source: [place] 1:55 PM [facility] REPOSITORY Order Comment: Reason for Laboratory Test . TYPE CODE TESTS RESULT OUT OF RANGE REFERENCE UNITS LAB L100.1000 4.4-11.0 K/mm3 Low alert WBC 0.6 Result Comment: CRITICAL VALUE VERIFIED. CALLED TO ANDER BERG 09/04/18 Lennox Mitchell RESULTS READ BACK BY SAME. LAB L100.1200 4.6-6.2 M/mm3 Low RBC 2.17 LAB L100.1300 13.0-16.5 g/dl Low HGB 7.6 LAB L100.1400 40-54 % Low HCT 22.8 LAB L100.1500 80-94 fL High MCV 105.1 LAB L100.1600 27.0-32.0 pg High MCH 35.0 LAB L100.1700 32-36 g/gl Normal MCHC 33.3 LAB L100.1810 11.6-14.6 % High RDW 16.5 CV LAB L100.1820 35.1-43.9 fl High RDW 60.9 SD LAB L100.1900 150-450 K/mm3 Low alert PLT 10 Result Comment: CRITICAL VALUE VERIFIED. CALLED TO ANDER BERG 09/04/18 Lennox Padilla. RESULTS READ BACK BY SAME. LAB L100.2000 6.2-12.0 fl MPV Normal 9.8 LAB L100.3100 MANUAL DIFF CELLS COUNTED Normal 50 LAB L100.3200 47-70 % SEGS Low 20 LAB L100.3800 19-41 % LYMPH High 70 LAB L100.3900 0-10 % MONOCYTE Normal 10 LAB L100.5500 ADEQ PLT EST Normal MKD DEC LAB L100.7000 NORM C AND C NORMAL RED CELL MORPH Normal N CYTIC LAB L100.7600 HYPOCHROMASIA Normal 1+ LAB L100.2620 2.0-7.7 X10 3/uL Absolute Neut Low 0.2 LAB L100.2720 0.83-4.51 X10 3/ul Absolute Lymph Normal 0.84 LAB L100.9900 PATH REV Normal Reviewed Result Comment: Pancytopenia. Leukpenia, marked. Macrocytic anemia. Marked Thrombocytopenia. Clinical correlation necessary. Yehuda Ryan D.O. 09/05/18 AMENDED REPORT 09/05/18 1334 PATH REV previously reported as: Bella yulia Performed By: #### L100.0100 #### [facility] [place], [address] CBC WITH DIFF BOLIVAR Collected: 08/24/2018 Status: F Source: [facility] 8:42 AM [facility] REPOSITORY TYPE CODE TESTS RESULT OUT OF REFERENCE UNITS RANGE LAB WBC 3.73-10.10 K/uL Low WBC Count 3.58 LAB RBC 4.38-5.83 M/uL Low RBC Count 2.70 LAB HGB 13.4-16.8 g/dL Low Hemoglobin 9.4 LAB HCT 39.6-48.8 % Low Hematocrit 28.8 LAB MCV 79.0-94.5 fL Mean High Cell Volume 106.7 Result Comment: Results inconsistent with previous results LAB MCH 26.1-33.3 pg Mean Cell 34.8 High Hgb LAB MCHC 31.9-36.5 g/dL Mean Cell 32.6 Hgb Conc LAB RDW 10.9-14.3 % RBC 20.1 High Distribution LAB PLT 146-337 K/uL Platelet 268 Count LAB MPV 8.7-12.3 fL Mean 9.3 Platelet Volume LAB NRBC 0.0-0.2 /100 WBC NUCLEATED 0.0 RBC LAB DTYPE Electronic DIFFERENTIAL TYPE Differential LAB IGRE % IMMATURE 0.3 GRANS % LAB SEGS % NEUTROPHIL 32.7 SEGMENTED LAB LYM % LYMPHOCYTE 49.2 % LAB MON % MONOCYTE % 15.6 LAB EOS % *EOSINOPHIL 1.1 % LAB BASO % BASOPHIL % 1.1 LAB IGABS 0.00-0.07 K/uL IMMATURE <0.04 GRANS ABSOLUTE LAB SBANS 1.57-6.19 K/uL SEGS + 1.17 Low Bands,Absolute LAB ALYM 0.83-3.57 K/uL Abs Lymph 1.76 LAB AMONO 0.24-0.93 K/uL Abs Victoria 0.56 LAB AEOS 0.00-0.48 K/uL Abs Eos 0.04 LAB ABASO 0.00-0.09 K/uL Abs Baso 0.04 Performed By: #### CBCDFJ #### Bolivar BECK, [facility] [address] [place] [address] CALCIUM - CHRI Collected: 08/24/2018 Status: F Source: [facility] 8:42 AM [facility] REPOSITORY TYPE CODE TESTS RESULT OUT OF REFERENCE UNITS RANGE LAB CA 8.6-10.5 mg/dL Calcium 9.2 Performed By: #### CBCDFJ #### [facility], [facility] [address] [place] [address] CHEM 6 - CHRI Collected: 08/24/2018 Status: F Source: [facility] 8:42 [facility] REPOSITORY TYPE CODE TESTS RESULT OUT OF REFERENCE UNITS RANGE LAB BUN 7-22 mg/dL BUN High 23 LAB CREA 0.70-1.30 mg/dL High Creatinine 1.31 LAB NA 133-143 mmol/L Sodium 137 LAB K 3.5-5.0 mmol/L Potassium 4.0 LAB CL 98-108 mmol/L Chloride 105 LAB CO2 22-30 mmol/L Carbon Dioxide 26 LAB GFR >60 mL/min/1.73 Low sqM Est GFR,non 54 New Zealander LAB GFRA >60 mL/min/1.73 sqM Est GFR, >60 LAB GAP 7-17 mmol/L Anion Gap 10 Performed By: #### CBCDFJ #### Bolivar BECK, [facility] [address] [place] [address] GLUCOSE - CHRI Collected: 08/24/2018 Status: F Source: [facility] 8:42 AM [facility] REPOSITORY TYPE CODE TESTS RESULT OUT OF REFERENCE UNITS RANGE LAB GLUC 70-99 mg/dL High Glucose 107 Performed By: #### CBCDFJ #### Bolivar CCCAddy, [facility] [address] [place] [address] HEPATIC FUNCTIONS - Collected: 08/24/2018 Status: F Source: [facility] 8:42 AM [facility] REPOSITORY TYPE CODE TESTS RESULT OUT OF REFERENCE UNITS RANGE LAB AST 14-40 U/L AST 19 LAB ALT 10-52 U/L ALT 19 LAB ALP 32-126 U/L Alkaline Phosphatase 88 LAB ALB 3.5-5.0 g/dL Albumin 4.3 LAB BILD <0.3 mg/dL Bilirubin Direct 0.1 LAB BILT <1.5 mg/dL Bilirubin Total 0.4 LAB TP 6.4-8.3 g/dL Total Protein 6.6 Performed By: #### CBCDFJ #### [facility], [facility] [address] [place], [place] [address] TYPE AND SCREEN Collected: 08/10/2018 Status: P Source: [place] 9:25 AM [facility] REPOSITORY Order Comment: CMV NEG?* N Give When? 08/11/18 Irradiated? Y Leukodepleted? Y Reason for Type AND Screen/Red Cells: ANEMIA TYPE CODE TESTS RESULT OUT OF RANGE REFERENCE UNITS LAB B10.0800 O Normal BLOOD TYPE GEL POSITIVE LAB B100.4000 Normal Antibody NEGATIVE Screen Performed By: #### B101.7450 #### [facility] [address] [place] [address], [id number] TYPE AND SCREEN Collected: 08/10/2018 Status: F Source: [place] 9:25 AM [facility] REPOSITORY Order Comment: CMV NEG?* N Give When? 08/11/18 Irradiated? Y Leukodepleted? Y Reason for Type AND Screen/Red Cells: ANEMIA TYPE CODE TESTS RESULT OUT OF RANGE REFERENCE UNITS LAB B10.0800 O Normal BLOOD TYPE GEL POSITIVE LAB B100.4000 Normal Antibody NEGATIVE Screen Performed By: #### B101.7450 #### [facility] [address] [place] [address]. [place], [address] Collected: 08/10/2018 Status: F Source: [place] 9:25 AM [facility] REPOSITORY TYPE CODE TESTS RESULT OUT OF REFERENCE UNITS RANGE LAB U100.0000 [id number] TRANSFUSED PRODUCT: T AND S with Crossmatch, Red Cells COUNT: 1 Performed By: #### U100.0000 #### [facility] - refer to report for specific site ABO RH BLOOD TYPE, Collected: 08/07/2018 Status: P Source: [place] PATIENT 8:55 AM [facility] REPOSITORY Order Comment: PLT COUNT IS 13K CMV NEG? N Give When? 08/08/18 Irradiated? Y TYPE CODE TESTS RESULT OUT OF RANGE REFERENCE UNITS LAB B10.0800 O Normal BLOOD POSITIVE TYPE GEL Performed By: #### B10.0010 #### [facility] [address] [place], [place], [address] ABO RH BLOOD TYPE, Collected: 08/07/2018 Status: F Source: [place] PATIENT 8:55 AM [facility] REPOSITORY Order Comment: PLT COUNT IS 13K CMV NEG? N Give When? 08/08/18 Irradiated? Y TYPE CODE TESTS RESULT OUT OF RANGE REFERENCE UNITS LAB B10.0800 O Normal BLOOD POSITIVE TYPE GEL Performed By: #### B10.0010 #### [facility] [address] [place] [place], [address] PPHR Collected: 08/07/2018 Status: F Source: [place] 8:55 AM [facility] REPOSITORY TYPE CODE TESTS RESULT OUT OF REFERENCE UNITS RANGE LAB U100.0700 [id number] TRANSFUSED PRODUCT: Platelets Apheresis PPHR LR SD COUNT: 1 Performed By: #### U100.0700 #### [facility] - refer to report for specific site CALCIUM - CHRI Collected: 07/27/2018 Status: F Source: [facility] 8:43 AM [facility] REPOSITORY TYPE CODE TESTS RESULT OUT OF REFERENCE UNITS RANGE LAB CA 8.6-10.5 mg/dL Calcium 9.4 Performed By: #### CBCDFJ #### Bolivar CCCT, [facility] [address] [place], [place] [address] CHEM 6 - CHRI Collected: 07/27/2018 Status: F Source: [facility] 8:43 AM [facility] REPOSITORY TYPE CODE TESTS RESULT OUT OF REFERENCE UNITS RANGE LAB BUN 7-22 mg/dL BUN High 23 LAB CREA 0.70-1.30 mg/dL Creatinine 1.21 LAB NA 133-143 mmol/L Sodium 140 LAB K 3.5-5.0 mmol/L Potassium 4.0 LAB CL 98-108 mmol/L Chloride 106 LAB CO2 22-30 mmol/L Carbon Dioxide 27 LAB GFR >60 mL/min/1.73 Low sqM Est GFR,non 59 New Zealander LAB GFRA >60 mL/min/1.73 sqM Est GFR, >60 LAB GAP 7-17 mmol/L Anion Gap 11 Performed By: #### CBCDFJ #### Bolivar CCCT, [facility] [address] [place] [address] GLUCOSE - CHRI Collected: 07/27/2018 Status: F Source: [facility] 8:43 AM [facility] REPOSITORY TYPE CODE TESTS RESULT OUT OF REFERENCE UNITS RANGE LAB GLUC 70-99 mg/dL High Glucose 152 Performed By: #### CBCDFJ #### Bolivar CCCT, [facility] [address] [place] [address] HEPATIC FUNCTIONS - Collected: 07/27/2018 Status: F [facility] REPOSITORY TYPE CODE TESTS RESULT OUT OF REFERENCE UNITS RANGE LAB AST 14-40 U/L AST 19 LAB ALT 10-52 U/L ALT 23 LAB ALP 32-126 U/L Alkaline Phosphatase 86 LAB ALB 3.5-5.0 g/dL Albumin 4.3 LAB BILD <0.3 mg/dL Bilirubin Direct 0.1 LAB BILT <1.5 mg/dL Bilirubin Total 0.5 LAB TP 6.4-8.3 g/dL Total Protein 6.7 Performed By: #### CBCDFJ #### Bolivar CCCT, [facility] [address] [place] [address] CBC WITH DIFF BOLIVAR Collected: 07/27/2018 Status: F Source: [facility] 8:43 AM [facility] REPOSITORY TYPE CODE TESTS RESULT OUT OF REFERENCE UNITS RANGE LAB WBC 3.73-10.10 K/uL WBC Count 2.93 Low LAB RBC 4.38-5.83 M/uL RBC Count 3.08 Low LAB HGB 13.4-16.8 g/dL Hemoglobin 10.0 Low LAB HCT 39.6-48.8 % Hematocrit 31.1 Low LAB MCV 79.0-94.5 fL Mean Cell 101.0 High Volume LAB MCH 26.1-33.3 pg Mean Cell 32.5 Hgb LAB MCHC 31.9-36.5 g/dL Mean Cell 32.2 Hgb Conc LAB RDW 10.9-14.3 % RBC 20.3 High Distribution LAB PLT 146-337 K/uL Platelet 269 Count LAB MPV 8.7-12.3 fL Mean 8.8 Platelet Volume LAB NRBC 0.0-0.2 /100 WBC NUCLEATED 0.0 RBC LAB DTYPE Manual DIFFERENTIAL TYPE Differential LAB SEGS % NEUTROPHIL 55.0 SEGMENTED LAB LYM % LYMPHOCYTE 20.0 % LAB MON % MONOCYTE % 21.0 LAB EOS % *EOSINOPHIL 2.0 % LAB BASO % BASOPHIL % 2.0 LAB BAND % BAND 0.0 NEUTROPHIL % LAB SBANS 1.57-6.19 K/uL SEGS + 1.61 Bands,Absolute LAB ALYM 0.83-3.57 K/uL Abs Lymph 0.59 Low LAB AMONO 0.24-0.93 K/uL Abs Victoria 0.62 LAB AEOS 0.00-0.48 K/uL Abs Eos 0.06 LAB ABASO 0.00-0.09 K/uL Abs Baso 0.06 LAB OVALO OVALOCYTES Present LAB PLTEST PLATELET Automated ESTIMATE platelet count confirmed by manual slide review. LAB RMORPH Red Cell RBC indices Morphology confirmed by manual smear review. Performed By: #### CBCDFJ #### [facility], [facility] [address] [place], [place] [address] NUC PET LYMPHOMA Observed: 07/26/2018 Status: F Source: [facility] 11:33 AM [facility] REPOSITORY EXAM: NUC PET LYMPHOMA, 07/26/2018 11:23 AM CLINICAL INDICATIONS: follow-up MCL; , COMPARISON: PET/CT March 30, 2018 CT DOSE: DLP: 466 mGy x cm kVp: 120 TECHNIQUE: The patient's fasting blood glucose was 97 mg/dl. Approximately 69 minutes following the injection of 10.7 mCi of F-18 FDG, the patient was positioned on the Siemens Biograph mCT TOF< PET/CT-64, Champ imaging unit. A low resolution non-contrast CT was obtained from the top of the head through the mid-femurs for use in attenuation correction and anatomic correlation. PET emission scans of this anatomic region were acquired shortly thereafter. Axial, sagittal, coronal and maximal intensity projection reconstruction images were presented for interpretation. FINDINGS: Head/Neck: Physiologic FDG uptake is noted in the salivary glands and tonsillar tissue. There is no hypermetabolic cervical or supraclavicular lymphadenopathy. Normal, intense physiologic uptake is noted in the cerebral cortex finch matter and subcortical nuclei without gross hypermetabolic abnormality. Chest: There are no hypermetabolic pulmonary parenchymal lesions. There is no hypermetabolic axillary, mediastinal, or hilar lymphadenopathy. Physiologic FDG uptake is seen in the myocardium. Abdomen/Pelvis: Physiologic FDG uptake is seen throughout the liver, spleen and bowel. Physiologic FDG excretion is seen in the kidneys, ureters, and bladder. There are no hypermetabolic lesions in the adrenal glands. There is no hypermetabolic inguinal, retroperitoneal, paraaortic or portocaval lymphadenopathy. Musculoskeletal: There is physiologic FDG uptake throughout the axial and proximal appendicular skeleton. No focal hypermetabolic osseous lesions are identified. IMPRESSION: Dramatic interval improvement since the prior exam with no evidence of FDG avid lymphoma on today's exam. Deauville score: 1 *POC GLUCOSE BATTERY Collected: 07/26/2018 Status: F Source: [facility] 9:25 AM [facility] REPOSITORY TYPE CODE TESTS RESULT OUT OF REFERENCE UNITS RANGE LAB GLUP 70-99 mg/dL Glucose (poc 97 device) Result Comment: No BRAVE per RN: PATIENT TYPE LAB PCSTYP *POC Capillary SAMPLE TYPE Blood TYPE AND SCREEN Collected: 07/13/2018 Status: F Source: [place] 11:15 AM [facility] REPOSITORY Order Comment: CMV NEG?* N Give When? 07/14/18 Irradiated? Y Leukodepleted? Y Reason for Type AND Screen/Red Cells: ANEMIA TYPE CODE TESTS RESULT OUT OF RANGE REFERENCE UNITS LAB B10.0800 O Normal BLOOD TYPE GEL POSITIVE LAB B100.4000 Normal Antibody NEGATIVE Screen Performed By: #### B101.7450 #### [facility] [address] [place], [address] Collected: 07/13/2018 Status: F Source: [place] 11:15 AM [facility] REPOSITORY TYPE CODE TESTS RESULT OUT OF REFERENCE UNITS RANGE LAB U100.0000 [id number] TRANSFUSED PRODUCT: T AND S with Crossmatch, Red Cells COUNT: 2 Performed By: #### U100.0000 #### [facility] - refer to report for specific site CALCIUM - CHRI Collected: 06/29/2018 Status: F Source: [facility] 8:16 AM [facility] REPOSITORY TYPE CODE TESTS RESULT OUT OF REFERENCE UNITS RANGE LAB CA 8.6-10.5 mg/dL Calcium 9.5 Performed By: #### UGOJ #### [place] CCCT, [facility] [address] [place] [address] CHEM 6 - CHRI Collected: 06/29/2018 Status: F Source: [facility] 8:16 AM [facility] REPOSITORY TYPE CODE TESTS RESULT OUT OF REFERENCE UNITS RANGE LAB BUN 7-22 mg/dL BUN 18 LAB CREA 0.70-1.30 mg/dL Creatinine 1.23 LAB NA 133-143 mmol/L Sodium 139 LAB K 3.5-5.0 mmol/L Potassium 4.3 LAB CL 98-108 mmol/L Chloride 105 LAB CO2 22-30 mmol/L Carbon Dioxide 27 LAB GFR >60 mL/min/1.73 Low sqM Est GFR,non 58 New Zealander LAB GFRA >60 mL/min/1.73 sqM Est GFR, >60 LAB GAP 7-17 mmol/L Anion Gap 11 Performed By: #### UGOJ #### [place] BECK, [facility] [address] [place] [address] GLUCOSE - CHRI Collected: 06/29/2018 Status: F Source: [facility] 8:16 AM [facility] REPOSITORY TYPE CODE TESTS RESULT OUT OF REFERENCE UNITS RANGE LAB GLUC 70-99 mg/dL High Glucose 129 Performed By: #### MISTYDFJ #### [place] CCCAddy, [facility] [address] [place] [address] HEPATIC FUNCTIONS - Collected: 06/29/2018 Status: F [facility] 8:[facility] AM [facility] REPOSITORY TYPE CODE TESTS RESULT OUT OF REFERENCE UNITS RANGE LAB AST 14-40 U/L AST 25 LAB ALT 10-52 U/L ALT 22 LAB ALP 32-126 U/L Alkaline Phosphatase 76 LAB ALB 3.5-5.0 g/dL Albumin 4.5 LAB BILD <0.3 mg/dL Bilirubin Direct 0.1 LAB BILT <1.5 mg/dL Bilirubin Total 0.7 LAB TP 6.4-8.3 g/dL Total Protein 6.9 Performed By: #### UGOJ #### [place] REYEST, [facility] [address] [place], [place] [address] CBC WITH DIFF BOLIVAR Collected: 06/29/2018 Status: F Source: [facility] 8:16 AM [facility] REPOSITORY TYPE CODE TESTS RESULT OUT OF REFERENCE UNITS RANGE LAB WBC 4.23-9.07 K/uL WBC Count 2.53 Low LAB RBC 4.63-6.08 M/uL RBC Count 2.99 Low LAB HGB 13.7-17.5 g/dL Hemoglobin 9.6 Low LAB HCT 40.1-51.0 % Hematocrit 29.6 Low LAB MCV 79.0-92.2 fL Mean Cell 99.0 High Volume LAB MCH 25.7-32.2 pg Mean Cell 32.1 Hgb LAB MCHC 32.3-36.5 g/dL Mean Cell 32.4 Hgb Conc LAB RDW 11.6-14.4 % RBC 20.8 High Distribution LAB PLT 163-337 K/uL Platelet 342 High Count LAB MPV 9.4-12.4 fL Mean 8.9 Low Platelet Volume LAB NRBC 0.0-0.2 /100 WBC NUCLEATED 0.0 RBC LAB DTYPE Manual DIFFERENTIAL TYPE Differential LAB SEGS % NEUTROPHIL 42.0 SEGMENTED LAB LYM % LYMPHOCYTE 29.0 % LAB MON % MONOCYTE % 17.0 LAB EOS % EOSINOPHIL 9.0 % LAB BASO % BASOPHIL % 3.0 LAB BAND % BAND 0.0 NEUTROPHIL % LAB SBANS 1.78-5.38 K/uL SEGS + 1.06 Low Bands,Absolute LAB ALYM 1.32-3.57 K/uL Abs Lymph 0.73 Low LAB AMONO 0.30-0.82 K/uL Abs Victoria 0.43 LAB AEOS <0.55 K/uL Abs Eos 0.23 LAB ABASO <0.09 K/uL Abs Baso 0.08 LAB PLTEST PLATELET Automated ESTIMATE platelet count confirmed by manual slide review. LAB RMORPH Red Cell RBC indices Morphology confirmed by manual smear review. Performed By: #### CBCDFJ #### [place] CCCT, [facility] [address] [place], [place] [address] LD - CHRI Collected: 06/29/2018 Status: F Source: [facility] 8:16 AM [facility] REPOSITORY TYPE CODE TESTS RESULT OUT OF RANGE REFERENCE UNITS LAB LD 100-190 U/L High LD Total 261 EMERGENCY DEPARTMENT Observed: 06/12/2018 Status: F Source: [place] SUMMARY 11:38 PM [facility] REPOSITORY [facility] Medical Records Department [address] [place] [address] Emergency Department Summary 06/12/182012 MR#: [id number] Acct: [id number] Name: LEXI DICKINSON Rep #: [id number] : 1945 73 From: Rani Chaves MD PCP: Luis Alberto Burgos DO Status: DEP ER - ER Visit Summary Date of Service: 06/12/18 Chief Complaint: Pain in groin and chest History of Present Illness: The patient is a 73 M with a history of mantle cell lymphoma. Patient presents with his complaining of pain in his groin and chest which he describes his pain in the breast bone and not near his heart or lungs started this afternoon. He denies any back pain or difficulty urinating. Patient goes off on a tangent about how his life has been held and he is tired of bearing at all. He states multiple ministers of walked away from him and he feels spiritual despair. He states he has been to a psychiatrist in the past and they just pump and full of drugs. Physical Examination: Blood pressure is 147/86, temperature 96.9, heart rate 112, respiratory rate 16 Patient standing at the bedside. He is agitated. Head neck examination is otherwise unremarkable. Heart is tachycardic and regular. Lung sounds clear. There is no chest wall tenderness. Abdomen is soft and nontender. Back examination reveals no thoracic or lumbar midline tenderness. He has no CVA tenderness. Patient has no obvious neuro deficits on exam. Test Results: CBC was a white count of 2.1, hemoglobin 8.5, hematocrit 26.3. Platelet count is 26,000. Differential significant for 29 neutrophils and 44 bands. Chemistry studies reveal glucose of 159. Urinalysis is normal. CT flank shows fecal retention throughout the right hemicolon in the transverse colon. There is no definite kidney stone. Small bilateral fat-containing hernias are noted. Emergency Department Course and Treatment: Patient received a small dose of Dilaudid along with Zofran and IV fluids. On repeat evaluation patient is resting comfortably. I did discuss case with Dr. Ybarra, the patient's oncologist, including the CBC findings and differential. Patient is scheduled for packed RBCs and platelets transfusion tomorrow. Dr. Ybarra will see him tomorrow for this. Treatment Plan: [] Disposition: Discharge Impression: 1. Groin pain, resolved 2. Pancytopenia with history of lymphoma This note was generated with xCloud dictation software. It may contain incorrect words, spelling, and punctuation that were not noted in review of the chart prior to signing ED Disposition - Plan for ED Patient: Disposition: Home or Assisted Living Chief Complaint: General Illness Instructions: ED Flank Pain Uncertain Cause Referrals: Karri Ybarra MD [NON-STAFF] - 1 Day What to do if you have Problems For any increased pain, shortness of breath, bleeding, nausea or vomiting, chest pain, or any unexpected problems, contact your Primary Care Provider. Call [email or web address] ([phone]) or report to the closest Emergency Room. Call 911 if necessary. 06/12/18 2338 <Electronically signed by Rani Chaves MD> Date Rani Chaves MD Cosigner Signature (If Indicated): Date CC: Luis Alberto Burgos DO DISCHARGE INSTRUCTION Observed: 06/12/2018 Status: F Source: [place] 10:11 PM [facility] REPOSITORY [facility] Medical Records Department [address] [place] [address] Discharge Instruction 06/12/18 2210 MR#: [id number] Acct: [id number] Name: LEXI DICKINSON Rep #: [id number] : 1945 73 From: Rani Chaves MD PCP: Luis Alberto Burgos DO Status: REG ER ED Disposition - Plan for ED Patient: Disposition: Home or Assisted Living Chief Complaint: General Illness Instructions: ED Flank Pain Uncertain Cause Referrals: Karri Ybarra MD [NON-STAFF] - 1 Day What to do if you have Problems For any increased pain, shortness of breath, bleeding, nausea or vomiting, chest pain, or any unexpected problems, contact your Primary Care Provider. Call [facility] ([phone]) or report to the closest Emergency Room. Call 911 if necessary. 06/12/18 2211 <Electronically signed by Rani Chaves MD> Date Rani Chaves MD Cosigner Signature (If Indicated): Date CC: Luis Alberto Burgos DO URINALYSIS, COMPLETE Collected: 06/12/2018 Status: F Source: [place] 8:25 PM [facility] REPOSITORY Order Comment: Order Date: 06/12/18 How was Urine Obtained? SPOUT LINER HELPER TO SPECIFY TYPE CODE TESTS RESULT OUT OF RANGE REFERENCE UNITS LAB L400.3000 Yellow COLOR Normal Yellow LAB L400.3050 Clear Normal CLARITY Clear LAB L400.3200 Normal mg/dl Normal GLUCOSE, UR Normal LAB L400.3300 Negative mg/dL Normal BILIRUBIN URINE Negative LAB L400.3400 Negative mg/dl Normal KETONE UR Negative LAB L400.3465 1.002-1.030 Normal SP.GR. DIPSTX 1.010 LAB L400.3550 5.0 - 8.0 pH UR Normal 5.0 LAB L400.3600 Negative mg/dl High PROT 15 DIPSTX LAB L400.3700 Normal mg/dl Normal UROBILI Normal LAB L400.3750 Negative Normal NITRITE UR Negative LAB L400.3780 Negative /ul Normal OCCULT BLOOD-UR Negative LAB L400.3800 Negative /ul High LEUK 25 ESTERASE LAB L400.4050 0-5 /hpf WBC 0 Normal SEEN LAB L400.4100 0-5 /hpf 0 Normal RBC-UA SEEN LAB L400.4150 0-5 /hpf SQUAM 0 Normal EPI SEEN LAB L400.4300 None Seen /hpf 0 Normal BACTERIA SEEN LAB L400.4350 <or=2+ /hpf 0 Normal MUCUS, URINE SEEN Performed By: #### L400.0001 #### [facility] [address] [facility] [place], [address] BASIC METABOLIC Collected: 06/12/2018 Status: F Source: [place] PROFILE (BMP) 7:50 PM [facility] REPOSITORY TYPE CODE TESTS RESULT OUT OF RANGE REFERENCE UNITS LAB L501.0100 74-106 mg/dL High GLU 159 Result Comment: Fasting Glucose result greater than or equal to 126 mg/dL suggests DIABETES MELLITUS per A.D.A. criteria. Please note revised GLUCOSE reference range effective 2017. LAB L501.1000 7-18 mg/dL Normal BUN 14 LAB L501.1100 0.70-1.30 mg/dL Normal CREAT,SERUM 1.25 Result Comment: The validity of the calculated GFR AND GFRAA in patients over 70 years has not been determined. Clinical correlation is essential. LAB L501.1110 >60 mL/min Normal EST GFR 60 Result Comment: Non- GFR Calc LAB L501.1115 >60 mL/min Normal EST GFR - AA 73 Result Comment: GFR Calc LAB L501.1255 ml/min Normal Estimated CRCL 49.21 LAB L501.1300 10-20 RATIO Normal BUN/CRE 11.2 LAB L501.2200 8.5-10 mg/dL Normal .1 CA 9.0 LAB L501.5300 136-14 mmol/L Normal 5 NA 139 LAB L501.5600 3.5-5. mmol/L Normal 1 K 4.3 LAB L501.5900 98-107 mmol/L Normal CL 106 LAB L501.6100 21.0-3 mmol/L Normal 2.0 CO2 26.0 LAB L501.6200 5-15 Normal GAP 7 Performed By: #### L500.2500 #### [facility] [address] [facility] [place], [address] CBC W/DIFF, AUTOMATED Collected: 06/12/2018 Status: C Source: [place] 7:50 PM [facility] REPOSITORY TYPE CODE TESTS RESULT OUT OF RANGE REFERENCE UNITS LAB L100.1000 4.4-11.0 K/mm3 Low WBC 2.1 LAB L100.1200 4.6-6.2 M/mm3 Low RBC 2.75 LAB L100.1300 13.0-16.5 g/dl Low HGB 8.5 LAB L100.1400 40-54 % Low HCT 26.3 LAB L100.1500 80-94 fL High MCV 95.6 LAB L100.1600 27.0-32.0 pg Normal MCH 30.9 LAB L100.1700 32-36 g/gl Normal MCHC 32.3 LAB L100.1810 11.6-14.6 % High RDW CV 18.4 LAB L100.1820 35.1-43.9 fl High RDW SD 64.0 LAB L100.1900 150-450 K/mm3 Low alert PLT 26 Result Comment: CRITICAL VALUE VERIFIED. CALLED TO sadi henson 06/12/182042 Harpreet Loyd. RESULTS READ BACK BY sadi . LAB L100.2000 6.2-12.0 fl MPV Normal 10.0 LAB L100.3100 MANUAL DIFF CELLS COUNTED Normal 100 LAB L100.3200 47-70 % Low SEGS 29 LAB L100.3300 0-5 % BAND High 44 LAB L100.3400 0-1 % META High 3 LAB L100.3800 19-41 % Low LYMPH 2 LAB L100.3900 0-10 % MONOCYTE Normal 10 LAB L100.4000 0-5 % EOS High 11 LAB L100.4100 0-1 % BASOPHIL Normal 1 LAB L100.4800 TOXIC GRAN Normal 2+ LAB L100.5500 ADEQ PLT EST Normal MKD DEC LAB L100.7300 ANISO Normal 2+ LAB L100.7600 HYPOCHROMASIA Normal 1+ LAB L100.7800 MACROCYTE Normal RARE LAB L100.9900 PATH REV Normal Reviewed Result Comment: Pancytopenia. Clinical correlation necessary. [place] Abdullahi M.D. 06/13/18 AMENDED REPORT 06/13/18 1234 PATH REV previously reported as: December foll LAB L100.2620 2.0-7.7 X10 3/uL Low Absolute Neut 1.5 LAB L100.2720 0.83-4.51 X10 3/ul Low Absolute Lymph 0.42 Performed By: #### L100.0100 #### [facility] [address] [place], [address] ABDOMEN/PELVIS WITHOUT Observed: 06/12/2018 Status: F Source: [place] CONT 7:24 PM [facility] REPOSITORY [facility] Imaging Services [address] [place] [address] Abdomen/Pelvis without Cont MR#: [id number] Acct: [id number] Name: LEXI DICKINSON Rep #: [id number] : 1945 M 73 From: Bret Raygoza DO PCP: Luis Alberto Burgos DO Status: REG ER Study: Abdomen/Pelvis without Cont Date of Exam: 06/12/18 Exam# [id number] Ordering Dr: Rani Chaves MD STUDY: CT ABDOMEN AND PELVIS WITHOUT CONTRAST REASON FOR EXAM: Male, 73 years old. Groin pain. Bone cancer and mental cell lymphoma RADIATION DOSAGE (If Supplied By Facility): CTDIvol = ( 20.49 ) mGy, DLP = ( 567.82 ) mGycm TECHNIQUE: Transaxial images were obtained from the dome of the diaphragm to the symphysis pubis without oral contrast, and without intravenous contrast. Sagittal and coronal images were reconstructed. Individualized dose optimization techniques were used for this CT. COMPARISON: None. FINDINGS: The visualized lung bases are unremarkable. The visualized portions of the heart are within normal limits. Normal liver. There are surgical clips in the gallbladder fossa consistent with a prior cholecystectomy. There are multiple benign calcified granulomata of the spleen. Normal pancreas. Normal bilateral adrenal glands. Normal right kidney. Normal left kidney. There is a small hiatal hernia. Normal small intestine. Moderate to severe fecal retention throughout the right hemicolon and transverse colon. There is non-visualization of the appendix. There is diffuse atherosclerotic calcification of the abdominal aorta, without a demonstrated aneurysm. Normal inferior vena cava. Normal retroperitoneum. Normal urinary bladder. There is enlargement of the prostate gland. Small fat-containing bilateral inguinal hernias. There are diffuse degenerative changes of the visualized lumbar spine. Grade 1 anterolisthesis of L5 on S1. Bilateral pars defects, chronic. CT/Abdomen/Pelvis without Cont IMPRESSION: Significant fecal retention throughout the right hemicolon and transverse colon. No evidence of urolithiasis or renal obstruction. Small bilateral fat-containing inguinal hernias. Electronically Signed: Bret RaygozaDO at 20:16 EDT Tel , Service support , CC: Rani Chaves MD; Luis Alberto Burgos DO [employer]ist: Signed TYPE AND SCREEN Collected: 06/12/2018 Status: P Source: [place] 8:05 AM [facility] REPOSITORY Order Comment: CMV NEG?* N CMV NEG? N Give When? 06/13/18 Irradiated? Y Leukodepleted? Y Reason for Type AND Screen/Red Cells: ANEMIA TYPE CODE TESTS RESULT OUT OF RANGE REFERENCE UNITS LAB B10.0800 O Normal BLOOD TYPE GEL POSITIVE LAB B100.4000 Normal Antibody NEGATIVE Screen Performed By: #### B101.7450 #### [facility] [address] [facility] [place], [place], [address] TYPE AND SCREEN Collected: 06/12/2018 Status: F Source: [place] 8:05 AM [facility] REPOSITORY Order Comment: CMV NEG?* N CMV NEG? N Give When? 06/13/18 Irradiated? Y Leukodepleted? Y Reason for Type AND Screen/Red Cells: ANEMIA TYPE CODE TESTS RESULT OUT OF RANGE REFERENCE UNITS LAB B10.0800 O Normal BLOOD TYPE GEL POSITIVE LAB B100.4000 Normal Antibody NEGATIVE Screen Performed By: #### B101.7450 #### [facility] [address] [place], [place], [address] PPHR Collected: 06/12/2018 Status: F Source: [place] 8:05 AM [facility] REPOSITORY TYPE CODE TESTS RESULT OUT OF REFERENCE UNITS RANGE LAB U100.0700 [id number] TRANSFUSED PRODUCT: Platelets Apheresis PPHR LR SD COUNT: 1 Performed By: #### U100.0700 #### [facility] - refer to report for specific site RC Collected: 06/12/2018 Status: F Source: [place] 8:05 AM [facility] REPOSITORY TYPE CODE TESTS RESULT OUT OF REFERENCE UNITS RANGE LAB U100.0000 [id number] TRANSFUSED PRODUCT: T AND S with Crossmatch, Red Cells COUNT: 1 Performed By: #### U100.0000 #### [facility] - refer to report for specific site CBC W/DIFF, AUTOMATED Collected: 06/05/2018 Status: F Source: [place] 8:04 AM [facility] REPOSITORY Order Comment: IF CRITICAL CALL [phone] TYPE CODE TESTS RESULT OUT OF RANGE REFERENCE UNITS LAB L100.1000 4.4-11.0 K/mm3 High WBC 16.9 LAB L100.1200 4.6-6.2 M/mm3 Low RBC 2.83 LAB L100.1300 13.0-16.5 g/dl Low HGB 8.8 LAB L100.1400 40-54 % Low HCT 27.1 LAB L100.1500 80-94 fL High MCV 95.8 LAB L100.1600 27.0-32.0 pg Normal MCH 31.1 LAB L100.1700 32-36 g/gl Normal MCHC 32.5 LAB L100.1810 11.6-14.6 % High RDW CV 18.5 LAB L100.1820 35.1-43.9 fl High RDW SD 61.0 LAB L100.1900 150-450 K/mm3 Normal PLT 254 LAB L100.2000 6.2-12.0 fl Normal MPV 9.1 LAB L100.2100 47-70 % High NEUT% 94.9 LAB L100.2200 19-41 % Low LY% 0.5 LAB L100.2300 0-10 % Normal MONO% 3.9 LAB L100.2400 0-5 % Normal EO% 0.4 LAB L100.2500 0-1 % Normal BASO% 0.1 LAB L100.2550 0.0-0.9 % Normal IM GRAN % 0.200 Result Comment: IG% - Immature Granulocytes (promyelocytes, myelocytes and metamyelocytes) > 1% indicates that a LEFT SHIFT is Present. LAB L100.2620 2.0-7.7 X10 3/uL Absolute Neut High 16.1 LAB L100.2720 0.83-4.51 X10 3/ul Low Absolute Lymph 0.08 LAB L100.7600 HYPOCHROMASIA Normal 2+ Performed By: #### L100.0100 #### [facility] [place], [address] COMPREHENSIVE METABOLIC Collected: 06/05/2018 Status: F Source: [place] 8:04 AM [facility] REPOSITORY Order Comment: IF CRITICAL CALL [phone] TYPE CODE TESTS RESULT OUT OF RANGE REFERENCE UNITS LAB L501.0100 74-106 mg/dL High GLU 142 Result Comment: Fasting Glucose result greater than or equal to 126 mg/dL suggests DIABETES MELLITUS per A.D.A. criteria. Please note revised GLUCOSE reference range effective 2017. LAB L501.1000 7-18 mg/dL High BUN 28 LAB L501.1100 0.70-1.30 mg/dL High CREAT,SERUM 1.40 Result Comment: The validity of the calculated GFR AND GFRAA in patients over 70 years has not been determined. Clinical correlation is essential. LAB L501.1110 >60 mL/min Low EST GFR 53 Result Comment: Non- GFR Calc LAB L501.1115 >60 mL/min Normal EST GFR - AA 64 Result Comment: GFR Calc LAB L501.1255 ml/min Normal Estimated CRCL 46.99 LAB L501.1300 10-20 RATIO Normal BUN/CRE 20.0 LAB L501.1500 6.4-8. g/dL Low 2 T PROT 6.2 LAB L501.1800 3.2-5. g/dL Normal 0 ALB 3.7 LAB L501.1950 2.2-4. g/dL Normal 2 GLOB 2.5 LAB L501.2000 0.9-2. RATIO Normal 4 A/G 1.5 LAB L501.2200 8.5-10 mg/dL Low .1 CA 8.3 LAB L501.4100 15-37 U/L Normal AST 17 LAB L501.4305 45-117 U/L Normal ALK P 90 LAB L501.4405 16-61 U/L Normal ALT 26 LAB L501.4600 0.20-1 mg/dL Normal .00 T BILI 0.90 LAB L501.5300 136-14 mmol/L Normal 5 NA 139 LAB L501.5600 3.5-5. mmol/L Normal 1 K 4.3 LAB L501.5900 98-107 mmol/L Normal CL 105 LAB L501.6100 21.0-3 mmol/L Normal 2.0 CO2 26.0 LAB L501.6200 5-15 Normal GAP 8 Performed By: #### L500.4050 #### [facility] [address] [facility] [place], [place], [address] CALCIUM - CHRI Collected: 06/01/2018 Status: F Source: [facility] 8:35 AM [facility] REPOSITORY TYPE CODE TESTS RESULT OUT OF REFERENCE UNITS RANGE LAB CA 8.6-10.5 mg/dL Calcium 9.3 Performed By: #### CBCDFJ #### [facility] [address] [place] [address] CHEM 6 - CHRI Collected: 06/01/2018 Status: F Source: [facility] 8:35 AM [facility] REPOSITORY TYPE CODE TESTS RESULT OUT OF REFERENCE UNITS RANGE LAB BUN 7-22 mg/dL BUN High 25 LAB CREA 0.70-1.30 mg/dL Creatinine 1.21 LAB NA 133-143 mmol/L Sodium 141 LAB K 3.5-5.0 mmol/L Potassium 4.1 LAB CL 98-108 mmol/L Chloride 107 LAB CO2 22-30 mmol/L Carbon Dioxide 26 LAB GFR >60 mL/min/1.73 Low sqM Est GFR,non 59 New Zealander LAB GFRA >60 mL/min/1.73 sqM Est GFR, >60 LAB GAP 7-17 mmol/L Anion Gap 12 Performed By: #### CBCDFJ #### [facility] [address] [place] [address] GLUCOSE - CHRI Collected: 06/01/2018 Status: F Source: [facility] 8:35 AM [facility] REPOSITORY TYPE CODE TESTS RESULT OUT OF REFERENCE UNITS RANGE LAB GLUC 70-99 mg/dL High Glucose 131 Performed By: #### CBCDFJ #### [facility] [address] [place], [place] [address] HEPATIC FUNCTIONS - Collected: 06/01/2018 Status: F Source: [facility] CHRI 8:35 AM [facility] REPOSITORY TYPE CODE TESTS RESULT OUT OF REFERENCE UNITS RANGE LAB AST 14-40 U/L AST 17 LAB ALT 10-52 U/L ALT 16 LAB ALP 32-126 U/L Alkaline Phosphatase 74 LAB ALB 3.5-5.0 g/dL Albumin 4.1 LAB BILD <0.3 mg/dL Bilirubin Direct 0.2 LAB BILT <1.5 mg/dL Bilirubin Total 0.9 LAB TP 6.4-8.3 g/dL Total Protein 6.4 Performed By: #### CBCDFJ #### [place] CCCT, [facility] [address] [place] [address] CBC WITH DIFF BOLIVAR Collected: 06/01/2018 Status: F Source: [facility] 8:35 AM [facility] REPOSITORY TYPE CODE TESTS RESULT OUT OF REFERENCE UNITS RANGE LAB WBC 4.23-9.07 K/uL WBC Count 1.76 Low LAB RBC 4.63-6.08 M/uL RBC Count 2.78 Low LAB HGB 13.7-17.5 g/dL Hemoglobin 8.7 Low LAB HCT 40.1-51.0 % Hematocrit 26.7 Low LAB MCV 79.0-92.2 fL Mean Cell 96.0 High Volume LAB MCH 25.7-32.2 pg Mean Cell 31.3 Hgb LAB MCHC 32.3-36.5 g/dL Mean Cell 32.6 Hgb Conc LAB RDW 11.6-14.4 % RBC 18.6 High Distribution LAB PLT 163-337 K/uL Platelet 301 Count LAB MPV 9.4-12.4 fL Mean 9.3 Low Platelet Volume LAB NRBC 0.0-0.2 /100 WBC NUCLEATED 0.0 RBC LAB DTYPE Manual DIFFERENTIAL TYPE Differential LAB SEGS % NEUTROPHIL 54.0 SEGMENTED LAB LYM % LYMPHOCYTE 8.0 % LAB MON % MONOCYTE % 30.0 LAB EOS % EOSINOPHIL 3.0 % LAB BASO % BASOPHIL % 5.0 LAB BAND % BAND 0.0 NEUTROPHIL % LAB SBANS 1.78-5.38 K/uL SEGS + 0.95 Low Bands,Absolute LAB ALYM 1.32-3.57 K/uL Abs Lymph 0.14 Low LAB AMONO 0.30-0.82 K/uL Abs Victoria 0.53 LAB AEOS <0.55 K/uL Abs Eos 0.05 LAB ABASO <0.09 K/uL Abs Baso 0.09 High LAB PLTEST PLATELET Automated ESTIMATE platelet count confirmed by manual slide review. LAB RMORPH Red Cell RBC indices Morphology confirmed by manual smear review. Performed By: #### CBCDFJ #### [place] CCCT, [facility] [address] [place], [place] [address] CBC W/DIFF, AUTOMATED Collected: 05/29/2018 Status: F Source: [place] 8:19 AM [facility] REPOSITORY Order Comment: IF CRITICAL CALL [phone] TYPE CODE TESTS RESULT OUT OF RANGE REFERENCE UNITS LAB L100.1000 4.4-11.0 K/mm3 Low WBC 2.4 LAB L100.1200 4.6-6.2 M/mm3 Low RBC 2.93 LAB L100.1300 13.0-16.5 g/dl Low HGB 8.9 LAB L100.1400 40-54 % Low HCT 27.7 LAB L100.1500 80-94 fL High MCV 94.5 LAB L100.1600 27.0-32.0 pg Normal MCH 30.4 LAB L100.1700 32-36 g/gl Normal MCHC 32.1 LAB L100.1810 11.6-14.6 % High RDW CV 18.3 LAB L100.1820 35.1-43.9 fl High RDW SD 59.0 LAB L100.1900 150-450 K/mm3 Normal PLT 374 LAB L100.2000 6.2-12.0 fl Normal MPV 9.0 LAB L100.2100 47-70 % Normal NEUT% 60.0 LAB L100.2200 19-41 % Normal LY% 25.0 LAB L100.2300 0-10 % High MONO% 10.8 LAB L100.2400 0-5 % Normal EO% 1.3 LAB L100.2500 0-1 % High BASO% 2.5 LAB L100.2550 0.0-0.9 % Normal IM GRAN % 0.400 Result Comment: IG% - Immature Granulocytes (promyelocytes, myelocytes and metamyelocytes) > 1% indicates that a LEFT SHIFT is Present. LAB L100.2620 2.0-7.7 X10 3/uL Low Absolute Neut 1.4 LAB L100.2720 0.83-4.51 X10 3/ul Low Absolute Lymph 0.60 LAB L100.4500 Normal SMEAR COMMENT COMMENT Result Comment: SLIDE SCANNED - LYMPHOPENIA NOTED. Performed By: #### L100.0100 #### [facility] [address] [place], [address] COMPREHENSIVE METABOLIC Collected: 05/29/2018 Status: F Source: [place] [facility] 8:19 AM [facility] REPOSITORY Order Comment: IF CRITICAL CALL [phone] TYPE CODE TESTS RESULT OUT OF RANGE REFERENCE UNITS LAB L501.0100 74-106 mg/dL High GLU 112 Result Comment: Fasting Glucose result from 100 to 125 mg/dL suggests IMPAIRED HOMEOSTASIS per A.D.A. criteria. Please note revised GLUCOSE reference range effective 2017. LAB L501.1000 7-18 mg/dL High BUN 24 LAB L501.1100 0.70-1.30 mg/dL Normal CREAT,SERUM 1.26 Result Comment: The validity of the calculated GFR AND GFRAA in patients over 70 years has not been determined. Clinical correlation is essential. LAB L501.1110 >60 mL/min Normal EST GFR 60 Result Comment: Non- GFR Calc LAB L501.1115 >60 mL/min Normal EST GFR - AA 72 Result Comment: GFR Calc LAB L501.1255 ml/min Normal Estimated CRCL 52.99 LAB L501.1300 10-20 RATIO Normal BUN/CRE 19.0 LAB L501.1500 6.4-8. g/dL Normal 2 T PROT 6.5 LAB L501.1800 3.2-5. g/dL Normal 0 ALB 3.6 LAB L501.1950 2.2-4. g/dL Normal 2 GLOB 2.9 LAB L501.2000 0.9-2. RATIO Normal 4 A/G 1.2 LAB L501.2200 8.5-10 mg/dL Normal .1 CA 8.8 LAB L501.4100 15-37 U/L Normal AST 17 LAB L501.4305 45-117 U/L Normal ALK P 99 LAB L501.4405 16-61 U/L Normal ALT 27 LAB L501.4600 0.20-1 mg/dL Normal .00 T BILI 0.50 LAB L501.5300 136-14 mmol/L Normal 5 NA 141 LAB L501.5600 3.5-5. mmol/L Normal 1 K 4.8 LAB L501.5900 98-107 mmol/L Normal CL 107 LAB L501.6100 21.0-3 mmol/L Normal 2.0 CO2 25.0 LAB L501.6200 5-15 Normal GAP 9 Performed By: #### L500.4050 #### [facility] [place], [address] CBC W/DIFF, AUTOMATED Collected: 05/25/2018 Status: F Source: [place] 8:01 AM [facility] REPOSITORY TYPE CODE TESTS RESULT OUT OF RANGE REFERENCE UNITS LAB L100.1000 4.4-11.0 K/mm3 Normal WBC 4.5 LAB L100.1200 4.6-6.2 M/mm3 Low RBC 3.00 LAB L100.1300 13.0-16.5 g/dl Low HGB 9.1 LAB L100.1400 40-54 % Low HCT 28.1 LAB L100.1500 80-94 fL Normal MCV 93.7 LAB L100.1600 27.0-32.0 pg Normal MCH 30.3 LAB L100.1700 32-36 g/gl Normal MCHC 32.4 LAB L100.1810 11.6-14.6 % High RDW CV 17.4 LAB L100.1820 35.1-43.9 fl High RDW SD 55.4 LAB L100.1900 150-450 K/mm3 Normal PLT 305 LAB L100.2000 6.2-12.0 fl Normal MPV 8.5 LAB L100.2100 47-70 % High NEUT% 71.6 LAB L100.2200 19-41 % Low LY% 18.8 LAB L100.2300 0-10 % Normal MONO% 5.3 LAB L100.2400 0-5 % Normal EO% 1.8 LAB L100.2500 0-1 % Normal BASO% 0.7 LAB L100.2550 0.0-0.9 % High IM GRAN % 1.800 Result Comment: IG% - Immature Granulocytes (promyelocytes, myelocytes and metamyelocytes) > 1% indicates that a LEFT SHIFT is Present. LAB L100.2620 2.0-7.7 X10 3/uL Normal Absolute Neut 3.3 LAB L100.2720 0.83-4.51 X10 3/ul Normal Absolute Lymph 0.85 Performed By: #### L100.0100 #### [facility] [address] [place], [address] ONCOLOGY VISIT REPORT Observed: 05/22/2018 Status: F Source: [place] 2:09 PM [facility] REPOSITORY [facility] [address] [place] [address] OFFICE VISIT Date of Service: 05/22/18 1359 MR#: [id number] Acct: [id number] Name: LEXI DICKINSON Rep #: [id number] : 1945 From: Karri Ybarra MD Age/Sex: 72/M Location: [facility] Status: Signed Subjective - Date of Service Date of Service:: 05/22/18 - Chief Complaint F/u for Mantle cell lymphoma and therapy. 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 He was treated with 4 cycles of R-CHOP followed by 2 additional cycles of Rituxan completed on 06/07/2016. 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 He developed new onset anemia, was found to have about 55% blast. 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 CT c/a/p on 02/18/2018 showed left hilar adenopathy. He was started on Ibrutinib 560mg daily on 02/20/2018. He had progressive lymphocytosis on 03/28/2018, was referred to [facility]. He started Bendamustine and Rituxan on 04/06/2018, remains on it and comes in to check labs. He feels tired. - Past Medical/Social History Past Medical History Past Medical History: Anxiety,Hyperlipidemia,Hypertension Cancer: Leukemia,Lymphoma Other Cancer History: hx of oral chemo-not taking now. Past Surgical History Surgical: Cholecystectomy Other Surgical History: BILATERAL MYRINGOTOMY WITH TYMPANOSTOMY TUBES PLACED Family History Paternal Past Medical History: Diabetes mellitus,Heart disease Maternal Past Medical History: Diabetes mellitus,Heart disease Social History Social History: No changes Smoking Status Never smoker Review of Systems Constitutional:: Denies: Fever, Sweats, Weight loss, Appetite change, Chills Cardiovascular:: Denies: Chest pain, Palpitations, Dyspnea on exertion, Orthopnea, PND, Shortness of breath Respiratory: Denies: Cough, Hemoptysis, Shortness of Breath, Wheezing Gastrointestinal:: Denies: Abdominal pain, Nausea, Vomiting, Diarrhea, Constipation, Hematochezia Genitourinary: Denies: Dysuria, Hematuria, 15, Flank pain Musculoskeletal:: Denies: Back pain, Myalgia, Arthralgia Skin: Denies: Rash, Skin Changes, Wounds Neurological:: Denies: Headache, Dizziness, Visual changes, Tinnitus, Hearing loss Psychiatric: Denies: Anxiety, Depression, Homicidal Ideations, Suicidal Ideations Vital Signs Height 5 ft 9 in Weight: 71.214 kg Weight in Pounds 157.0 lbs Pulse Ox 98 - Physical Exam General: Alert, Oriented x3, No apparent distress HEENT: Atraumatic, PERRLA, EOMI, Normocephalic Oropharynx:: Dry mucosa Neck:: Supple, Trachea midline. Negative for: JVD, bilateral Cardiac:: Regular rate, Regular rhythm, Normal S1, Normal S2. Negative for: Murmur Lungs: Clear to auscultation, Excusion symmetrical. Negative for: Rhonchi, Wheezes Abdomen:: Bowel sounds x 4, Soft, Non-tender, Non-distended. Negative for: Hepatosplenomegaly Extremities:: Negative for: Cyanosis, Edema Neurological: Neuro grossly intact Skin:: Negative for: Lesions, Rash, Petechiae, Ecchymosis Psychiatric:: Appropriate affect, Euthymic Lymphatics:: Negative for: Cervical lymphadenopathy, Supraclavicular lymphadenopathy, Axillary lymphadenopathy Laboratory Data: Laboratory Tests WBC 5.5 (4.4-11.0) K/mm3 RBC 2.96 L (4.6-6.2) M/mm3 Hgb 8.9 L (13.0-16.5) g/dl Hct 27.6 L (40-54) % MCV 93.2 (80-94) fL Assessment and Plan Mantle cell lymphoma-now on Bendamustine and Rituxan. Anemia is stable. Non-Hodgkin's-diffuse large B cell, stage IIA, in remission. Plan is to proceed with follow up at [facility] for 3rd cycle as scheduled. To finish therapy at [facility]. Return to clinic 12 weeks with CBC/CMP/LDH. Medications: Prescriptions This Visit Medication Instructions Recorded Aspirin EC 81 mg PO DAILY 11/24/16 Ergocalciferol (Vitamin D2) 50,000 cap PO QWEEK 11/24/16 Primary Care Provider: Luis Alberto Burgos DO Referring Provider: - Problem List (1) History of non-Hodgkin's lymphoma Status: Chronic (2) Mantle cell lymphoma Status: Chronic Qualifiers: Lymphoma site: unspecified region Qualified Code(s): C83.10 - Mantle cell lymphoma, unspecified site Code Visit Office Visits / Consults: 40266 OV L3 Est 05/22/18 1409 <Electronically signed by Karri Ybarra MD> Date Karri Ybarra MD Cosigner Signature: Date (if applicable) CC: CBC W/DIFF, AUTOMATED Collected: 05/22/2018 Status: C Source: [place] 12:59 PM [facility] REPOSITORY Order Comment: IF CRITICAL CALL [phone] AND [phone] Reason for Laboratory Test . TYPE CODE TESTS RESULT OUT OF REFERENCE UNITS RANGE LAB L100.1000 4.4-11.0 K/mm3 WBC Normal 5.5 LAB L100.1200 4.6-6.2 M/mm3 Low RBC 2.96 LAB L100.1300 13.0-16.5 g/dl Low HGB 8.9 LAB L100.1400 40-54 % Low HCT 27.6 LAB L100.1500 80-94 fL MCV Normal 93.2 LAB L100.1600 27.0-32.0 pg MCH Normal 30.1 LAB L100.1700 32-36 g/gl MCHC Normal 32.2 LAB L100.1810 11.6-14.6 % RDW CV High 16.8 LAB L100.1820 35.1-43.9 fl RDW SD High 54.6 LAB L100.1900 150-450 K/mm3 PLT Normal 225 LAB L100.2000 6.2-12.0 fl MPV Normal 8.7 LAB L100.3100 MANUAL DIFF CELLS COUNTED Normal 100 LAB L100.3200 47-70 % SEGS Normal 67 LAB L100.3300 0-5 % BAND Normal 1 LAB L100.3400 0-1 % META Normal 1 LAB L100.3500 0-0 MYELO High 2 LAB L100.3600 0-0 PROMYELO High 1 LAB L100.3800 19-41 % Low LYMPH 4 LAB L100.3900 0-10 % MONOCYTE High 22 LAB L100.4000 0-5 % EOS Normal 2 LAB L100.4800 TOXIC GRAN Normal 2+ LAB L100.5500 ADEQ PLT EST Normal ADEQUATE LAB L100.7600 HYPOCHROMASIA Normal 2+ LAB L100.2620 2.0-7.7 X10 3/uL Absolute Neut Normal 3.7 LAB L100.2720 0.83-4.51 X10 3/ul Low Absolute Lymph 0.22 LAB L100.9900 PATH REV Normal Reviewed Result Comment: Neutrophilic left shift. Normocytic anemia. Clinical correlation necessary. Bolivar Abdullahi M.D. 05/23/18 AMENDED REPORT 05/23/18 1413 PATH REV previously reported as: December Performed By: #### L100.0100 #### [facility] [address] [place], [place], [address] COMPREHENSIVE METABOLIC Collected: 05/22/2018 Status: F Source: [facility] 12:59 PM [facility] REPOSITORY Order Comment: IF CRITICAL CALL [phone] AND [phone] Reason for Laboratory Test . TYPE CODE TESTS RESULT OUT OF RANGE REFERENCE UNITS LAB L501.0100 74-106 mg/dL Normal GLU 98 Result Comment: Please note revised GLUCOSE reference range effective 2017. LAB L501.1000 7-18 mg/dL Normal BUN 17 LAB L501.1100 0.70-1.30 mg/dL High CREAT,SERUM 1.32 Result Comment: The validity of the calculated GFR AND GFRAA in patients over 70 years has not been determined. Clinical correlation is essential. LAB L501.1110 >60 mL/min Low EST GFR 57 Result Comment: Non- GFR Calc LAB L501.1115 >60 mL/min Normal EST GFR - AA 68 Result Comment: GFR Calc LAB L501.1255 ml/min Normal Estimated CRCL 50.59 LAB L501.1300 10-20 RATIO Normal BUN/CRE 12.9 LAB L501.1500 6.4-8. g/dL Normal 2 T PROT 6.8 LAB L501.1800 3.2-5. g/dL Normal 0 ALB 3.6 LAB L501.1950 2.2-4. g/dL Normal 2 GLOB 3.2 LAB L501.2000 0.9-2. RATIO Normal 4 A/G 1.1 LAB L501.2200 8.5-10 mg/dL Normal .1 CA 8.7 LAB L501.4100 15-37 U/L Normal AST 21 LAB L501.4305 45-117 U/L Normal ALK P 116 LAB L501.4405 16-61 U/L Normal ALT 31 LAB L501.4600 0.20-1 mg/dL Normal .00 T BILI 0.50 LAB L501.5300 136-14 mmol/L Normal 5 NA 143 LAB L501.5600 3.5-5. mmol/L Normal 1 K 4.1 LAB L501.5900 98-107 mmol/L Normal CL 107 LAB L501.6100 21.0-3 mmol/L Normal 2.0 CO2 26.0 LAB L501.6200 5-15 Normal GAP 10 Performed By: #### L500.4050 #### [facility] [address] [place], [address] CBC W/DIFF, AUTOMATED Collected: 05/18/2018 Status: C Source: [place] 8:07 AM [facility] REPOSITORY Order Comment: IF CRITICAL CALL [phone] TYPE CODE TESTS RESULT OUT OF RANGE REFERENCE UNITS LAB L100.1000 4.4-11.0 K/mm3 Normal WBC 5.0 LAB L100.1200 4.6-6.2 M/mm3 Low RBC 3.03 LAB L100.1300 13.0-16.5 g/dl Low HGB 9.0 LAB L100.1400 40-54 % Low HCT 27.9 LAB L100.1500 80-94 fL Normal MCV 92.1 LAB L100.1600 27.0-32.0 pg Normal MCH 29.7 LAB L100.1700 32-36 g/gl Normal MCHC 32.3 LAB L100.1810 11.6-14.6 % High RDW CV 16.5 LAB L100.1820 35.1-43.9 fl High RDW SD 54.4 LAB L100.1900 150-450 K/mm3 Low 52 PLT LAB L100.2000 6.2-12.0 fl Normal MPV 9.3 LAB L100.3100 MANUAL DIFF Normal CELLS COUNTED 100 LAB L100.3200 47-70 % 67 Normal SEGS LAB L100.3300 0-5 % 3 Normal BAND LAB L100.3400 0-1 % High 3 META LAB L100.3500 0-0 High 7 MYELO LAB L100.3600 0-0 High 2 PROMYELO LAB L100.3800 19-41 % Low 6 LYMPH LAB L100.3900 0-10 % 10 Normal MONOCYTE LAB L100.4000 0-5 % 2 Normal EOS LAB L100.5500 ADEQ Normal PLT EST MOD DEC LAB L100.7000 NORM C AND C NORMAL Normal RED CELL MORPH NORM C+C LAB L100.2620 2.0-7.7 X10 3/uL Normal Absolute Neut 3.5 LAB L100.2720 0.83-4.51 X10 3/ul Low Absolute Lymph 0.30 LAB L100.9900 Normal PATH REV Reviewed Result Comment: Neutrophilic left shift. Normocytic anemia. Thrombocytopenia. Clinical correlation necessary. Bolivar Abdullahi M.D. 05/19/18 AMENDED REPORT 05/19/18 1006 PATH REV previously reported as: Bella bender Performed By: #### L100.0100 #### [facility] [address], [address] TYPE AND SCREEN Collected: 05/15/2018 Status: F Source: [place] 8:15 AM [facility] REPOSITORY Order Comment: CMV NEG?* N CMV NEG? N Give When? 05/16/18 Irradiated? Y Leukodepleted? Y Reason for Type AND Screen/Red Cells: ANEMIA TYPE CODE TESTS RESULT OUT OF RANGE REFERENCE UNITS LAB B10.0800 O Normal BLOOD TYPE GEL POSITIVE LAB B100.4000 Normal Antibody NEGATIVE Screen Performed By: #### B101.7450 #### [facility] [address] [place], [address] PPHR Collected: 05/15/2018 Status: F Source: [place] 8:15 AM [facility] REPOSITORY TYPE CODE TESTS RESULT OUT OF REFERENCE UNITS RANGE LAB U100.0700 [id number] TRANSFUSED PRODUCT: Platelets Apheresis PPHR LR SD COUNT: 1 Performed By: #### U100.0700 #### [facility] - refer to report for specific site RC Collected: 05/15/2018 Status: F Source: [place] 8:15 AM [facility] REPOSITORY TYPE CODE TESTS RESULT OUT OF REFERENCE UNITS RANGE LAB U100.0000 [id number] TRANSFUSED PRODUCT: T AND S with Crossmatch, Red Cells COUNT: 1 Performed By: #### U100.0000 #### [facility] - refer to report for specific site COMPREHENSIVE METABOLIC Collected: 05/15/2018 Status: F Source: [facility] 8:08 AM [facility] REPOSITORY Order Comment: IF CRITICAL CALL [phone] TYPE CODE TESTS RESULT OUT OF RANGE REFERENCE UNITS LAB L501.0100 74-106 mg/dL High GLU 126 Result Comment: Fasting Glucose result greater than or equal to 126 mg/dL suggests DIABETES MELLITUS per A.D.A. criteria. Please note revised GLUCOSE reference range effective 2017. LAB L501.1000 7-18 mg/dL High BUN 28 LAB L501.1100 0.70-1.30 mg/dL Normal CREAT,SERUM 1.28 Result Comment: The validity of the calculated GFR AND GFRAA in patients over 70 years has not been determined. Clinical correlation is essential. LAB L501.1110 >60 mL/min Low EST GFR 59 Result Comment: Non- GFR Calc LAB L501.1115 >60 mL/min Normal EST GFR - AA 71 Result Comment: GFR Calc LAB L501.1255 ml/min Normal Estimated CRCL 52.17 LAB L501.1300 10-20 RATIO High BUN/CRE 21.9 LAB L501.1500 6.4-8. g/dL Low 2 T PROT 6.3 LAB L501.1800 3.2-5. g/dL Normal 0 ALB 3.5 LAB L501.1950 2.2-4. g/dL Normal 2 GLOB 2.8 LAB L501.2000 0.9-2. RATIO Normal 4 A/G 1.2 LAB L501.2200 8.5-10 mg/dL Normal .1 CA 8.6 LAB L501.4100 15-37 U/L Normal AST 15 LAB L501.4305 45-117 U/L High ALK P 126 LAB L501.4405 16-61 U/L Normal ALT 23 LAB L501.4600 0.20-1 mg/dL Normal .00 T BILI 0.80 LAB L501.5300 136-14 mmol/L Normal 5 NA 140 LAB L501.5600 3.5-5. mmol/L Normal 1 K 3.8 LAB L501.5900 98-107 mmol/L High CL 108 LAB L501.6100 21.0-3 mmol/L Normal 2.0 CO2 24.0 LAB L501.6200 5-15 Normal GAP 8 Performed By: #### L500.4050 #### [facility] [address] [place], [address] CBC W/DIFF, AUTOMATED Collected: 05/15/2018 Status: C Source: [place] 8:08 AM [facility] REPOSITORY Order Comment: IF CRITICAL CALL [phone] TYPE CODE TESTS RESULT OUT OF RANGE REFERENCE UNITS LAB L100.1000 4.4-11.0 K/mm3 Low alert WBC 0.4 Result Comment: CRITICAL VALUE VERIFIED. CALLED TO RAJENDRA BERG 05/15/18 0821 Deondre Mitchell RESULTS READ BACK BY SAME. LAB L100.1200 4.6-6.2 M/mm3 Low RBC 2.71 LAB L100.1300 13.0-16.5 g/dl Low HGB 8.1 LAB L100.1400 40-54 % Low HCT 24.9 LAB L100.1500 80-94 fL Normal MCV 91.9 LAB L100.1600 27.0-32.0 pg Normal MCH 29.9 LAB L100.1700 32-36 g/gl Normal MCHC 32.5 LAB L100.1810 11.6-14.6 % High RDW 16.7 CV LAB L100.1820 35.1-43.9 fl High RDW 54.9 SD LAB L100.1900 150-450 K/mm3 Low alert PLT 12 Result Comment: CRITICAL VALUE VERIFIED. CALLED TO RAJENDRA BERG 05/15/18 0807 Deondre Mitchell RESULTS READ BACK BY SAME. LAB L100.2000 6.2-12.0 fl Normal MPV 8.2 LAB L100.2100 47-70 % Low NEUT% 27.1 LAB L100.2200 19-41 % Normal LY% 29.7 LAB L100.2300 0-10 % Normal MONO% 8.1 LAB L100.2400 0-5 % High EO% 32.4 LAB L100.2500 0-1 % Normal BASO% 0.0 LAB L100.2550 0.0-0.9 % High IM GRAN % 2.700 Result Comment: IG% - Immature Granulocytes (promyelocytes, myelocytes and metamyelocytes) > 1% indicates that a LEFT SHIFT is Present. LAB L100.2620 2.0-7.7 X10 3/uL Low Absolute Neut 0.1 LAB L100.2720 0.83-4.51 X10 3/ul Low Absolute Lymph 0.11 LAB L100.4500 SMEAR Normal COMMENT Result Comment: SLIDE SCANNED - NEUTROPENIA,LYMPHOPENIA,LEUKOCYTOPENIA,THROMBOCYTOPENIA. LAB L100.9900 Normal Reviewed PATH REV Result Comment: Pancytopenia. Clinical correlation necessary. Bolivar Abdullahi M.D. 05/16/18 AMENDED REPORT 05/16/18 1036 PATH REV previously reported as: December Performed By: #### L100.0100 #### [facility] [place], [address] CBC W/DIFF, AUTOMATED Collected: 05/11/2018 Status: F Source: [place] 8:07 AM [facility] REPOSITORY Order Comment: IF CRITICAL CALL [phone] TYPE CODE TESTS RESULT OUT OF RANGE REFERENCE UNITS LAB L100.1000 4.4-11.0 K/mm3 High WBC 16.2 LAB L100.1200 4.6-6.2 M/mm3 Low RBC 2.65 LAB L100.1300 13.0-16.5 g/dl Low HGB 8.0 LAB L100.1400 40-54 % Low HCT 24.8 LAB L100.1500 80-94 fL Normal MCV 93.6 LAB L100.1600 27.0-32.0 pg Normal MCH 30.2 LAB L100.1700 32-36 g/gl Normal MCHC 32.3 LAB L100.1810 11.6-14.6 % High RDW CV 17.5 LAB L100.1820 35.1-43.9 fl High RDW SD 58.7 LAB L100.1900 150-450 K/mm3 Low PLT 75 LAB L100.2000 6.2-12.0 fl Normal MPV 9.1 LAB L100.2100 47-70 % High NEUT% 93.2 LAB L100.2200 19-41 % Low LY% 3.2 LAB L100.2300 0-10 % Normal MONO% 1.9 LAB L100.2400 0-5 % Normal EO% 0.4 LAB L100.2500 0-1 % Normal BASO% 0.1 LAB L100.2550 0.0-0.9 % High IM GRAN % 1.200 Result Comment: IG% - Immature Granulocytes (promyelocytes, myelocytes and metamyelocytes) > 1% indicates that a LEFT SHIFT is Present. LAB L100.2620 2.0-7.7 X10 3/uL High Absolute Neut 15.1 LAB L100.2720 0.83-4.51 X10 3/ul Low Absolute Lymph 0.51 LAB L100.4500 Normal SMEAR COMMENT COMMENT Result Comment: SLIDE SCANNED - LYMPHOPENIA NOTED. Performed By: #### L100.0100 #### [facility] [address] [place], [place], [address] TYPE AND SCREEN Collected: 05/11/2018 Status: F Source: [place] 8:05 AM [facility] REPOSITORY Order Comment: PRETRANSFUSION HGB = 8.0 HCT = 24.8 PERFORMED AT [facility] CMV NEG?* N Give When? 05/12/18 Irradiated? Y Leukodepleted? Y Reason for Type AND Screen/Red Cells: ANEMIA TYPE CODE TESTS RESULT OUT OF RANGE REFERENCE UNITS LAB B10.0800 O Normal BLOOD TYPE GEL POSITIVE LAB B100.4000 Normal Antibody NEGATIVE Screen Performed By: #### B101.7450 #### [facility] [address] [place], [address] Collected: 05/11/2018 Status: F Source: [place] 8:05 AM [facility] REPOSITORY TYPE CODE TESTS RESULT OUT OF REFERENCE UNITS RANGE LAB U100.0000 [id number] TRANSFUSED PRODUCT: T AND S with Crossmatch, Red Cells COUNT: 1 Performed By: #### U100.0000 #### [facility] - refer to report for specific site COMPREHENSIVE METABOLIC Collected: 05/08/2018 Status: F Source: [facility] 8:13 AM [facility] REPOSITORY Order Comment: IF CRITICAL CALL [phone] Reason for Laboratory Test . TYPE CODE TESTS RESULT OUT OF RANGE REFERENCE UNITS LAB L501.0100 74-106 mg/dL High GLU 120 Result Comment: Fasting Glucose result from 100 to 125 mg/dL suggests IMPAIRED HOMEOSTASIS per A.D.A. criteria. Please note revised GLUCOSE reference range effective 2017. LAB L501.1000 7-18 mg/dL High BUN 25 LAB L501.1100 0.70-1.30 mg/dL High CREAT,SERUM 1.32 Result Comment: The validity of the calculated GFR AND GFRAA in patients over 70 years has not been determined. Clinical correlation is essential. LAB L501.1110 >60 mL/min Low EST GFR 57 Result Comment: Non- GFR Calc LAB L501.1115 >60 mL/min Normal EST GFR - AA 68 Result Comment: GFR Calc LAB L501.1255 ml/min Normal Estimated CRCL 50.59 LAB L501.1300 10-20 RATIO Normal BUN/CRE 18.9 LAB L501.1500 6.4-8. g/dL Low 2 T PROT 6.3 LAB L501.1800 3.2-5. g/dL Normal 0 ALB 3.5 LAB L501.1950 2.2-4. g/dL Normal 2 GLOB 2.8 LAB L501.2000 0.9-2. RATIO Normal 4 A/G 1.2 LAB L501.2200 8.5-10 mg/dL Low .1 CA 8.4 LAB L501.4100 15-37 U/L Normal AST 19 LAB L501.4305 45-117 U/L Normal ALK P 109 LAB L501.4405 16-61 U/L Normal ALT 28 LAB L501.4600 0.20-1 mg/dL High .00 T BILI 1.20 LAB L501.5300 136-14 mmol/L Normal 5 NA 141 LAB L501.5600 3.5-5. mmol/L Normal 1 K 4.3 LAB L501.5900 98-107 mmol/L Normal CL 104 LAB L501.6100 21.0-3 mmol/L Normal 2.0 CO2 26.0 LAB L501.6200 5-15 Normal GAP 11 Performed By: #### L500.4050 #### [facility] [address] [place], [address] CBC W/DIFF, AUTOMATED Collected: 05/08/2018 Status: F Source: [place] 8:13 AM [facility] REPOSITORY Order Comment: IF CRITICAL CALL [phone] Reason for Laboratory Test . TYPE CODE TESTS RESULT OUT OF RANGE REFERENCE UNITS LAB L100.1000 4.4-11.0 K/mm3 High WBC 26.6 LAB L100.1200 4.6-6.2 M/mm3 Low RBC 3.02 LAB L100.1300 13.0-16.5 g/dl Low HGB 9.1 LAB L100.1400 40-54 % Low HCT 28.3 LAB L100.1500 80-94 fL Normal MCV 93.7 LAB L100.1600 27.0-32.0 pg Normal MCH 30.1 LAB L100.1700 32-36 g/gl Normal MCHC 32.2 LAB L100.1810 11.6-14.6 % High RDW CV 16.9 LAB L100.1820 35.1-43.9 fl High RDW SD 54.8 LAB L100.1900 150-450 K/mm3 Normal PLT 227 LAB L100.2000 6.2-12.0 fl Normal MPV 8.4 LAB L100.2100 47-70 % High NEUT% 96.9 LAB L100.2200 19-41 % Low LY% 0.8 LAB L100.2300 0-10 % Normal MONO% 1.4 LAB L100.2400 0-5 % Normal EO% 0.0 LAB L100.2500 0-1 % Normal BASO% 0.1 LAB L100.2550 0.0-0.9 % Normal IM GRAN % 0.800 Result Comment: IG% - Immature Granulocytes (promyelocytes, myelocytes and metamyelocytes) > 1% indicates that a LEFT SHIFT is Present. LAB L100.2620 2.0-7.7 X10 3/uL High Absolute Neut 25.8 LAB L100.2720 0.83-4.51 X10 3/ul Low Absolute Lymph 0.22 Performed By: #### L100.0100 #### [facility] [address] Hernandez. [place], [place], [id number] CBC WITH DIFF BOLIVAR Collected: 05/04/2018 Status: F Source: [facility] 8:10 AM [facility] REPOSITORY TYPE CODE TESTS RESULT OUT OF REFERENCE UNITS RANGE LAB WBC 4.23-9.07 K/uL Low WBC Count 2.92 LAB RBC 4.63-6.08 M/uL Low RBC Count 2.94 LAB HGB 13.7-17.5 g/dL Low Hemoglobin 8.9 LAB HCT 40.1-51.0 % Low Hematocrit 27.3 LAB MCV 79.0-92.2 fL Mean High Cell Volume 92.9 Result Comment: Results inconsistent with previous results LAB MCH 25.7-32.2 pg Mean Cell 30.3 Hgb LAB MCHC 32.3-36.5 g/dL Mean Cell 32.6 Hgb Conc LAB RDW 11.6-14.4 % RBC 16.7 High Distribution LAB PLT 163-337 K/uL Platelet 220 Count LAB MPV 9.4-12.4 fL Mean 9.3 Low Platelet Volume LAB NRBC 0.0-0.2 /100 WBC NUCLEATED 0.0 RBC LAB DTYPE Manual DIFFERENTIAL TYPE Differential LAB SEGS % NEUTROPHIL 75.0 SEGMENTED LAB LYM % LYMPHOCYTE 5.0 % LAB MON % MONOCYTE % 14.0 LAB EOS % EOSINOPHIL 2.0 % LAB BASO % BASOPHIL % 4.0 LAB BAND % BAND 0.0 NEUTROPHIL % LAB SBANS 1.78-5.38 K/uL SEGS + 2.19 Bands,Absolute LAB ALYM 1.32-3.57 K/uL Abs Lymph 0.15 Low LAB AMONO 0.30-0.82 K/uL Abs Victoria 0.41 LAB AEOS <0.55 K/uL Abs Eos 0.06 LAB ABASO <0.09 K/uL Abs Baso 0.12 High LAB [employer] Present CELLS LAB TEARDR TEARDROP Present CELLS LAB PLTEST PLATELET Automated ESTIMATE platelet count confirmed by manual slide review. LAB RMORPH Red Cell RBC indices Morphology confirmed by manual smear review. Performed By: #### ULYSSES #### [place]ar BECK, [facility] [address] [place] [id number] CALCIUM - CHRI Collected: 05/04/2018 Status: F Source: [facility] 8:10 [facility] REPOSITORY TYPE CODE TESTS RESULT OUT OF REFERENCE UNITS RANGE LAB CA 8.6-10.5 mg/dL Calcium 8.9 Performed By: #### MISTYDFJ #### [place] BECK, [facility] [address] [place] [id number] CHEM 6 - CHRI Collected: 05/04/2018 Status: F Source: [facility] 8:10 [facility] REPOSITORY TYPE CODE TESTS RESULT OUT OF REFERENCE UNITS RANGE LAB BUN 7-22 mg/dL BUN 22 LAB CREA 0.70-1.30 mg/dL Creatinine 1.25 LAB NA 133-143 mmol/L Sodium 141 LAB K 3.5-5.0 mmol/L Potassium 4.1 LAB CL 98-108 mmol/L Chloride 107 LAB CO2 22-30 mmol/L Carbon Dioxide 28 LAB GFR >60 mL/min/1.73 Low sqM Est GFR,non 57 [place] Ze[place]ander LAB GFRA >60 mL/min/1.73 sqM Est GFR, >60 LAB GAP 7-17 mmol/L Anion Gap 10 Performed By: #### MISTYDFJ #### Bol[place]ar [facility], [facility] [address] [place] [address] GLUCOSE - CHRI Collected: 05/04/2018 Status: F Source: [facility] 8:10 [facility] REPOSITORY TYPE CODE TESTS RESULT OUT OF REFERENCE UNITS RANGE LAB GLUC 70-99 mg/dL High Glucose 136 Performed By: #### MSITYDFJ #### [place]ar [facility] [address] [place], [place] [address] HEPATIC FUNCTIONS - Collected: 05/04/2018 Status: F Source: [facility] CHRI 8:10 AM [facility] REPOSITORY TYPE CODE TESTS RESULT OUT OF REFERENCE UNITS RANGE LAB AST 14-40 U/L AST 20 LAB ALT 10-52 U/L ALT 20 LAB ALP 32-126 U/L Alkaline Phosphatase 116 LAB ALB 3.5-5.0 g/dL Albumin 4.1 LAB BILD <0.3 mg/dL Bilirubin High Direct 0.3 LAB BILT <1.5 mg/dL Bilirubin Total 0.9 LAB TP 6.4-8.3 g/dL Total Protein 6.6 Performed By: #### CBCDFJ #### [place] [facility] [address] [place], [place] [address] CBC W/DIFF, AUTOMATED Collected: 05/02/2018 Status: F Source: [place] 7:58 AM [facility] REPOSITORY Order Comment: CALL CRITICAL TO [phone] TYPE CODE TESTS RESULT OUT OF RANGE REFERENCE UNITS LAB L100.1000 4.4-11.0 K/mm3 Low WBC 2.4 LAB L100.1200 4.6-6.2 M/mm3 Low RBC 2.99 LAB L100.1300 13.0-16.5 g/dl Low HGB 8.8 LAB L100.1400 40-54 % Low HCT 27.7 LAB L100.1500 80-94 fL Normal MCV 92.6 LAB L100.1600 27.0-32.0 pg Normal MCH 29.4 LAB L100.1700 32-36 g/gl Low MCHC 31.8 LAB L100.1810 11.6-14.6 % High RDW CV 16.7 LAB L100.1820 35.1-43.9 fl High RDW SD 54.6 LAB L100.1900 150-450 K/mm3 Normal PLT 212 LAB L100.2000 6.2-12.0 fl Normal MPV 8.7 LAB L100.2100 47-70 % Normal NEUT% 64.8 LAB L100.2200 19-41 % Normal LY% 21.3 LAB L100.2300 0-10 % Normal MONO% 9.4 LAB L100.2400 0-5 % Normal EO% 1.6 LAB L100.2500 0-1 % High BASO% 2.5 LAB L100.2550 0.0-0.9 % Normal IM GRAN % 0.400 Result Comment: IG% - Immature Granulocytes (promyelocytes, myelocytes and metamyelocytes) > 1% indicates that a LEFT SHIFT is Present. LAB L100.2620 2.0-7.7 X10 3/uL Low Absolute Neut 1.6 LAB L100.2720 0.83-4.51 X10 3/ul Low Absolute Lymph 0.52 LAB L100.4500 Normal SMEAR COMMENT COMMENT Result Comment: SLIDE SCANNED - LYMPHOPENIA. Performed By: #### L100.0100 #### [facility] [address] [place], [address] COMPREHENSIVE METABOLIC Collected: 05/02/2018 Status: F Source: [facility] 7:58 AM [facility] REPOSITORY Order Comment: CALL CRITICAL TO [phone] TYPE CODE TESTS RESULT OUT OF RANGE REFERENCE UNITS LAB L501.0100 74-106 mg/dL Normal GLU 104 Result Comment: Fasting Glucose result from 100 to 125 mg/dL suggests IMPAIRED HOMEOSTASIS per A.D.A. criteria. Please note revised GLUCOSE reference range effective 2017. LAB L501.1000 7-18 mg/dL High BUN 25 LAB L501.1100 0.70-1.30 mg/dL High CREAT,SERUM 1.33 Result Comment: The validity of the calculated GFR AND GFRAA in patients over 70 years has not been determined. Clinical correlation is essential. LAB L501.1110 >60 mL/min Low EST GFR 56 Result Comment: Non- GFR Calc LAB L501.1115 >60 mL/min Normal EST GFR - AA 68 Result Comment: GFR Calc LAB L501.1255 ml/min Normal Estimated CRCL 50.20 LAB L501.1300 10-20 RATIO Normal BUN/CRE 18.8 LAB L501.1500 6.4-8. g/dL Normal 2 T PROT 6.9 LAB L501.1800 3.2-5. g/dL Normal 0 ALB 3.5 LAB L501.1950 2.2-4. g/dL Normal 2 GLOB 3.4 LAB L501.2000 0.9-2. RATIO Normal 4 A/G 1.0 LAB L501.2200 8.5-10 mg/dL Normal .1 CA 8.5 LAB L501.4100 15-37 U/L Normal AST 19 LAB L501.4305 45-117 U/L High ALK P 137 LAB L501.4405 16-61 U/L Normal ALT 26 LAB L501.4600 0.20-1 mg/dL Normal .00 T BILI 0.60 LAB L501.5300 136-14 mmol/L Normal 5 NA 140 LAB L501.5600 3.5-5. mmol/L Normal 1 K 4.2 LAB L501.5900 98-107 mmol/L High CL 108 LAB L501.6100 21.0-3 mmol/L Normal 2.0 CO2 24.0 LAB L501.6200 5-15 Normal GAP 8 Performed By: #### L500.4050 #### [facility] [address] [place], [address] ONCOLOGY VISIT REPORT Observed: 05/01/2018 Status: F Source: [place] 4:48 PM [facility] REPOSITORY [facility] [address] [place] [address] OFFICE VISIT Date of Service: 04/25/18 1107 MR#: [id number] Acct: [id number] Name: LEXI DICKINSON Rep #: [id number] : 1945 From: Karri Ybarra MD Age/Sex: 72/M Location: ONC Status: Signed Subjective - Date of Service Date of Service:: 04/25/18 - Chief Complaint F/u for Mantle cell lymphoma and therapy. 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 He was treated with 4 cycles of R-CHOP followed by 2 additional cycles of Rituxan completed on 06/07/2016. 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 He developed new onset anemia, was found to have about 55% blast. 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 CT c/a/p on 02/18/2018 showed left hilar adenopathy. He was started on Ibrutinib 560mg daily on 02/20/2018. He had progressive lymphocytosis on 03/28/2018, was referred to [facility]. He started Bendamustine and Rituxan on 04/06/2018 and comes in to check labs. He feels tired. - Past Medical/Social History Past Medical History Past Medical History: Anxiety,Hyperlipidemia,Hypertension Cancer: Leukemia,Lymphoma Other Cancer History: hx of oral chemo-not taking now. Past Surgical History Surgical: Cholecystectomy Other Surgical History: BILATERAL MYRINGOTOMY WITH TYMPANOSTOMY TUBES PLACED Family History Paternal Past Medical History: Diabetes mellitus,Heart disease Maternal Past Medical History: Diabetes mellitus,Heart disease Social History Social History: No changes Smoking Status Never smoker Review of Systems Constitutional:: Reports: Fatigue. Denies: Fever, Sweats Cardiovascular:: Denies: Chest pain, Palpitations, Dyspnea on exertion, Orthopnea, PND, Shortness of breath Respiratory: Denies: Cough, Hemoptysis, Shortness of Breath, Wheezing Gastrointestinal:: Denies: Abdominal pain, Nausea, Vomiting, Diarrhea, Constipation, Hematochezia Genitourinary: Denies: Dysuria, Hematuria, 15, Flank pain Musculoskeletal:: Denies: Back pain, Myalgia, Arthralgia Skin: Denies: Rash, Skin Changes, Wounds Neurological:: Denies: Headache, Dizziness, Visual changes, Tinnitus, Hearing loss Psychiatric: Denies: Anxiety, Depression, Homicidal Ideations, Suicidal Ideations Vital Signs Height 5 ft 9 in Weight: 71.214 kg Weight in Pounds 157.0 lbs Pulse Ox 98 - Physical Exam General: Alert, Oriented x3, No apparent distress Laboratory Data: Laboratory Tests WBC 2.0 L (4.4-11.0) K/mm3 RBC 3.01 L (4.6-6.2) M/mm3 Hgb 8.9 L (13.0-16.5) g/dl Assessment and Plan Mantle cell lymphoma-now on Bendamustine and Rituxan. Anemia is stable. No need for blood transfusion. Non-Hodgkin's-diffuse large B cell, stage IIA, in remission. Plan is to proceed with follow up at [facility] for 2nd cycle as scheduled. Return to clinic 4 weeks with CBC/CMP/LDH. Medications: Prescriptions This Visit Medication Instructions Recorded Aspirin EC 81 mg PO DAILY 11/24/16 Ergocalciferol (Vitamin D2) 50,000 cap PO QWEEK 11/24/16 Primary Care Provider: Luis Alberto Burgos DO Referring Provider: - Problem List (1) History of non-Hodgkin's lymphoma Status: Chronic (2) Mantle cell lymphoma Status: Chronic Qualifiers: Lymphoma site: unspecified region Qualified Code(s): C83.10 - Mantle cell lymphoma, unspecified site Code Visit Office Visits / Consults: [id number] OV L4 Est 05/01/18 1648 <Electronically signed by Karri Ybarra MD> Date Karri Ybarra MD Cosigner Signature: Date (if applicable) CC: CBC W/DIFF, AUTOMATED Collected: 04/27/2018 Status: F Source: [place] 8:11 AM [facility] REPOSITORY Order Comment: IF CRITICAL CALL [phone] Reason for Laboratory Test . TYPE CODE TESTS RESULT OUT OF RANGE REFERENCE UNITS LAB L100.1000 4.4-11.0 K/mm3 Low WBC 1.9 LAB L100.1200 4.6-6.2 M/mm3 Low RBC 2.95 LAB L100.1300 13.0-16.5 g/dl Low HGB 8.6 LAB L100.1400 40-54 % Low HCT 27.3 LAB L100.1500 80-94 fL Normal MCV 92.5 LAB L100.1600 27.0-32.0 pg Normal MCH 29.2 LAB L100.1700 32-36 g/gl Low MCHC 31.5 LAB L100.1810 11.6-14.6 % High RDW CV 16.3 LAB L100.1820 35.1-43.9 fl High RDW SD 53.4 LAB L100.1900 150-450 K/mm3 Normal PLT 204 LAB L100.2000 6.2-12.0 fl Normal MPV 9.0 LAB L100.2100 47-70 % Normal NEUT% 61.3 LAB L100.2200 19-41 % Normal LY% 22.6 LAB L100.2300 0-10 % High MONO% 14.0 LAB L100.2400 0-5 % Normal EO% 0.0 LAB L100.2500 0-1 % High BASO% 1.6 LAB L100.2550 0.0-0.9 % Normal IM GRAN % 0.500 Result Comment: IG% - Immature Granulocytes (promyelocytes, myelocytes and metamyelocytes) > 1% indicates that a LEFT SHIFT is Present. LAB L100.2620 2.0-7.7 X10 3/uL Low Absolute Neut 1.1 LAB L100.2720 0.83-4.51 X10 3/ul Low Absolute Lymph 0.42 LAB L100.4500 Normal SMEAR COMMENT SCANNED Performed By: #### L100.0100 #### [facility] [place], [address] CBC W/DIFF, AUTOMATED Collected: 04/25/2018 Status: C Source: [place] 10:07 AM [facility] REPOSITORY Order Comment: CALL CRITICAL TO [phone] AND ONCOLOGY [facility] Reason for Laboratory Test . TYPE CODE TESTS RESULT OUT OF RANGE REFERENCE UNITS LAB L100.1000 4.4-11.0 K/mm3 Low WBC 2.0 LAB L100.1200 4.6-6.2 M/mm3 Low RBC 3.01 LAB L100.1300 13.0-16.5 g/dl Low HGB 8.9 LAB L100.1400 40-54 % Low HCT 27.7 LAB L100.1500 80-94 fL Normal MCV 92.0 LAB L100.1600 27.0-32.0 pg Normal MCH 29.6 LAB L100.1700 32-36 g/gl Normal MCHC 32.1 LAB L100.1810 11.6-14.6 % High RDW CV 16.1 LAB L100.1820 35.1-43.9 fl High RDW SD 52.5 LAB L100.1900 150-450 K/mm3 Normal PLT 226 LAB L100.2000 6.2-12.0 fl Normal MPV 8.7 LAB L100.2100 47-70 % Normal NEUT% 63.0 LAB L100.2200 19-41 % Normal LY% 24.1 LAB L100.2300 0-10 % High MONO% 10.8 LAB L100.2400 0-5 % Normal EO% 0.0 LAB L100.2500 0-1 % High BASO% 2.1 LAB L100.2550 0.0-0.9 % Normal IM GRAN % 0.000 Result Comment: IG% - Immature Granulocytes (promyelocytes, myelocytes and metamyelocytes) > 1% indicates that a LEFT SHIFT is Present. LAB L100.2620 2.0-7.7 X10 3/uL Low Absolute Neut 1.2 LAB L100.2720 0.83-4.51 X10 3/ul Low Absolute Lymph 0.47 LAB L100.7300 1+ Normal ANISO LAB L100.9900 Normal PATH REV Reviewed Result Comment: Normocytic anemia. Leukocytopenia. Clinical correlation suggested. Yehuda Ryan D.O. 04/26/18 AMENDED REPORT 04/26/18 1118 PATH REV previously reported as: December yulia Performed By: #### L100.0100, L500.4050 #### [facility] [address] [place], [address] COMPREHENSIVE METABOLIC Collected: 04/25/2018 Status: F Source: [place] 10:07 AM [facility] REPOSITORY Order Comment: CALL CRITICAL TO [phone] AND ONCOLOGY [facility] Reason for Laboratory Test . TYPE CODE TESTS RESULT OUT OF RANGE REFERENCE UNITS LAB L501.0100 74-106 mg/dL High GLU 118 Result Comment: Fasting Glucose result from 100 to 125 mg/dL suggests IMPAIRED HOMEOSTASIS per A.D.A. criteria. Please note revised GLUCOSE reference range effective 2017. LAB L501.1000 7-18 mg/dL Normal BUN 18 LAB L501.1100 0.70-1.30 mg/dL High CREAT,SERUM 1.42 Result Comment: The validity of the calculated GFR AND GFRAA in patients over 70 years has not been determined. Clinical correlation is essential. LAB L501.1110 >60 mL/min Low EST GFR 52 Result Comment: Non- GFR Calc LAB L501.1115 >60 mL/min Normal EST GFR - AA 63 Result Comment: GFR Calc LAB L501.1255 ml/min Normal Estimated CRCL 47.02 LAB L501.1300 10-20 RATIO Normal BUN/CRE 12.7 LAB L501.1500 6.4-8. g/dL Normal 2 T PROT 7.1 LAB L501.1800 3.2-5. g/dL Normal 0 ALB 3.4 LAB L501.1950 2.2-4. g/dL Normal 2 GLOB 3.7 LAB L501.2000 0.9-2. RATIO Normal 4 A/G 0.9 LAB L501.2200 8.5-10 mg/dL Normal .1 CA 8.8 LAB L501.4100 15-37 U/L Normal AST 20 LAB L501.4305 45-117 U/L High ALK P 176 LAB L501.4405 16-61 U/L Normal ALT 32 LAB L501.4600 0.20-1 mg/dL Normal .00 T BILI 1.00 LAB L501.5300 136-14 mmol/L Normal 5 NA 138 LAB L501.5600 3.5-5. mmol/L Normal 1 K 4.3 LAB L501.5900 98-107 mmol/L Normal CL 106 LAB L501.6100 21.0-3 mmol/L Normal 2.0 CO2 24.0 LAB L501.6200 5-15 Normal GAP 8 Performed By: #### L100.0100, L500.4050 #### [facility] [address] [place], [address] CBC W/DIFF, AUTOMATED Collected: 04/20/2018 Status: C Source: [place] 8:08 AM [facility] REPOSITORY TYPE CODE TESTS RESULT OUT OF RANGE REFERENCE UNITS LAB L100.1000 4.4-11.0 K/mm3 Low alert WBC 1.0 Result Comment: CRITICAL VALUE VERIFIED. CALLED TO ARIK BERG 04/20/18 0857 Deondre Padilla. RESULTS READ BACK BY SAME. LAB L100.1200 4.6-6.2 M/mm3 Low RBC 3.05 LAB L100.1300 13.0-16.5 g/dl Low HGB 9.0 LAB L100.1400 40-54 % Low HCT 27.7 LAB L100.1500 80-94 fL Normal MCV 90.8 LAB L100.1600 27.0-32.0 pg Normal MCH 29.5 LAB L100.1700 32-36 g/gl Normal MCHC 32.5 LAB L100.1810 11.6-14.6 % High RDW 16.0 CV LAB L100.1820 35.1-43.9 fl High RDW 51.4 SD LAB L100.1900 150-450 K/mm3 Normal PLT 217 LAB L100.2000 6.2-12.0 fl Normal MPV 8.7 LAB L100.2100 47-70 % Low NEUT% 31.4 LAB L100.2200 19-41 % High LY% 62.7 LAB L100.2300 0-10 % Normal MONO% 4.9 LAB L100.2400 0-5 % Normal EO% 0.0 LAB L100.2500 0-1 % Normal BASO% 1.0 LAB L100.2550 0.0-0.9 % Normal IM 0.000 GRAN % Result Comment: IG% - Immature Granulocytes (promyelocytes, myelocytes and metamyelocytes) > 1% indicates that a LEFT SHIFT is Present. LAB L100.2620 2.0-7.7 X10 3/uL Low Absolute Neut 0.3 LAB L100.2720 0.83-4.51 X10 3/ul Low Absolute Lymph 0.64 LAB L100.4500 SMEAR Normal COMMENT Result Comment: SLIDE SCANNED - NEUTROPENIA,LEUKOCYTOPENIA. LAB L100.9900 Normal Reviewed PATH REV Result Comment: Leukopenia, neutropenia and Normocytic anemia. Clinical correlation necessary. Bol[place]ar Abdullahi M.D. 04/20/18 AMENDED REPORT 04/20/18 1056 PATH REV previously reported as: December Performed By: #### L100.0100 #### [facility] [place], [address] CBC W/DIFF, AUTOMATED Collected: 04/17/2018 Status: C Source: [place] 8:05 AM [facility] REPOSITORY Order Comment: IF CRITICAL CALL [phone] TYPE CODE TESTS RESULT OUT OF RANGE REFERENCE UNITS LAB L100.1000 4.4-11.0 K/mm3 Low alert WBC 0.5 Result Comment: CRITICAL VALUE VERIFIED. CALLED TO CANELO BERG 04/17/18 0839 Deondre Padilla. RESULTS READ BACK BY SAME. LAB L100.1200 4.6-6.2 M/mm3 Low RBC 3.30 LAB L100.1300 13.0-16.5 g/dl Low HGB 9.7 LAB L100.1400 40-54 % Low HCT 29.8 LAB L100.1500 80-94 fL Normal MCV 90.3 LAB L100.1600 27.0-32.0 pg Normal MCH 29.4 LAB L100.1700 32-36 g/gl Normal MCHC 32.6 LAB L100.1810 11.6-14.6 % High RDW 16.1 CV LAB L100.1820 35.1-43.9 fl High RDW 51.1 SD LAB L100.1900 150-450 K/mm3 Normal PLT 155 LAB L100.2000 6.2-12.0 fl Normal MPV 9.8 LAB L100.2100 47-70 % Low NEUT% 33.9 LAB L100.2200 19-41 % High LY% 49.1 LAB L100.2300 0-10 % High MONO% 13.2 LAB L100.2400 0-5 % Normal EO% 0.0 LAB L100.2500 0-1 % High BASO% 3.8 LAB L100.2550 0.0-0.9 % Normal IM 0.000 GRAN % Result Comment: IG% - Immature Granulocytes (promyelocytes, myelocytes and metamyelocytes) > 1% indicates that a LEFT SHIFT is Present. LAB L100.2620 2.0-7.7 X10 3/uL Low Absolute Neut 0.2 LAB L100.2720 0.83-4.51 X10 3/ul Low Absolute Lymph 0.26 LAB L100.4500 Normal SMEAR COMMENT COMMENT Result Comment: SLIDE SCANNED - NEUTROPENIA,LYMPHOPENIA,LEUKOCYTOPENIA. LAB L100.9900 Normal Reviewed PATH REV Result Comment: Leukopenia, neutropenia and Normocytic anemia. Clinical correlation necessary. Bolivar Abdullahi M.D. 04/17/18 AMENDED REPORT 04/17/18 1522 PATH REV previously reported as: May foll Performed By: #### L100.0100 #### [facility] [place], [address] COMPREHENSIVE METABOLIC Collected: 04/17/2018 Status: F Source: [place] 8:05 AM [facility] REPOSITORY Order Comment: IF CRITICAL CALL [phone] TYPE CODE TESTS RESULT OUT OF RANGE REFERENCE UNITS LAB L501.0100 74-106 mg/dL High GLU 161 Result Comment: Fasting Glucose result greater than or equal to 126 mg/dL suggests DIABETES MELLITUS per A.D.A. criteria. Please note revised GLUCOSE reference range effective 2017. LAB L501.1000 7-18 mg/dL High BUN 29 LAB L501.1100 0.70-1.30 mg/dL High CREAT,SERUM 1.53 Result Comment: The validity of the calculated GFR AND GFRAA in patients over 70 years has not been determined. Clinical correlation is essential. LAB L501.1110 >60 mL/min Low EST GFR 48 Result Comment: Non- GFR Calc LAB L501.1115 >60 mL/min Low EST GFR - AA 58 Result Comment: GFR Calc LAB L501.1255 ml/min Normal Estimated CRCL 43.64 LAB L501.1300 10-20 RATIO Normal BUN/CRE 19.0 LAB L501.1500 6.4-8. g/dL Normal 2 T PROT 7.3 LAB L501.1800 3.2-5. g/dL Normal 0 ALB 3.5 LAB L501.1950 2.2-4. g/dL Normal 2 GLOB 3.8 LAB L501.2000 0.9-2. RATIO Normal 4 A/G 0.9 LAB L501.2200 8.5-10 mg/dL Normal .1 CA 8.9 LAB L501.4100 15-37 U/L Normal AST 28 LAB L501.4305 45-117 U/L High ALK P 248 LAB L501.4405 16-61 U/L Normal ALT 60 LAB L501.4600 0.20-1 mg/dL High .00 T BILI 1.60 LAB L501.5300 136-14 mmol/L Normal 5 NA 140 LAB L501.5600 3.5-5. mmol/L Normal 1 K 4.1 LAB L501.5900 98-107 mmol/L Normal CL 102 LAB L501.6100 21.0-3 mmol/L Normal 2.0 CO2 25.0 LAB L501.6200 5-15 Normal GAP 13 Performed By: #### L500.4050 #### [facility] [address] [place], [address] TYPE AND SCREEN Collected: 04/13/2018 Status: P Source: [place] 8:58 AM [facility] REPOSITORY Order Comment: CMV NEG?* N Give When? 04/15/18 Irradiated? Y Leukodepleted? Y Reason for Type AND Screen/Red Cells: ANEMIA TYPE CODE TESTS RESULT OUT OF RANGE REFERENCE UNITS LAB B10.0800 O Normal BLOOD TYPE GEL POSITIVE LAB B100.4000 Normal Antibody NEGATIVE Screen Performed By: #### B101.7450 #### [facility] [address] [place] [address]. [place], [address] TYPE AND SCREEN Collected: 04/13/2018 Status: P Source: [place] 8:58 AM [facility] REPOSITORY Order Comment: CMV NEG?* N Give When? 04/15/18 Irradiated? Y Leukodepleted? Y Reason for Type AND Screen/Red Cells: ANEMIA TYPE CODE TESTS RESULT OUT OF RANGE REFERENCE UNITS LAB B10.0800 O Normal BLOOD TYPE GEL POSITIVE LAB B100.4000 Normal Antibody NEGATIVE Screen Performed By: #### B101.7450 #### [facility] [address] [place] [address]. [place], [address] TYPE AND SCREEN Collected: 04/13/2018 Status: F Source: [place] 8:58 AM [facility] REPOSITORY Order Comment: CMV NEG?* N Give When? 04/15/18 Irradiated? Y Leukodepleted? Y Reason for Type AND Screen/Red Cells: ANEMIA TYPE CODE TESTS RESULT OUT OF RANGE REFERENCE UNITS LAB B10.0800 O Normal BLOOD TYPE GEL POSITIVE LAB B100.4000 Normal Antibody NEGATIVE Screen Performed By: #### B101.7450 #### [facility] [address] [place], [address] RC Collected: 04/13/2018 Status: F Source: [place] 8:58 AM [facility] REPOSITORY TYPE CODE TESTS RESULT OUT OF REFERENCE UNITS RANGE LAB U100.0000 [id number] TRANSFUSED PRODUCT: T AND S with Crossmatch, Red Cells COUNT: 1 Performed By: #### U100.0000 #### Non-[facility] - refer to report for specific site CBC W/DIFF, AUTOMATED Collected: 04/13/2018 Status: C Source: [place] 8:47 AM [facility] REPOSITORY Order Comment: CALL CRITICAL TO [phone] TYPE CODE TESTS RESULT OUT OF RANGE REFERENCE UNITS LAB L100.1000 4.4-11.0 K/mm3 Low alert WBC 0.3 Result Comment: CRITICAL VALUE VERIFIED. CALLED TO JEFFREY AT [facility] 04/13/18 0915 Rani Ca. RESULTS READ BACK BY SAME . LAB L100.1200 4.6-6.2 M/mm3 Low RBC 2.73 LAB L100.1300 13.0-16.5 g/dl Low HGB 8.1 LAB L100.1400 40-54 % Low HCT 24.1 LAB L100.1500 80-94 fL Normal MCV 88.3 LAB L100.1600 27.0-32.0 pg Normal MCH 29.7 LAB L100.1700 32-36 g/gl Normal MCHC 33.6 LAB L100.1810 11.6-14.6 % High RDW 16.9 CV LAB L100.1820 35.1-43.9 fl High RDW 53.4 SD LAB L100.1900 150-450 K/mm3 Low alert PLT 40 Result Comment: CRITICAL VALUE VERIFIED. CALLED TO JEFFREY AT [facility] 04/13/18 0915 Rani Ca. RESULTS READ BACK BY SAME . LAB L100.2000 6.2-12.0 fl Normal MPV 10.1 LAB L100.2100 47-70 % Normal NEUT% 60.0 LAB L100.2200 19-41 % Normal LY% 30.0 LAB L100.2300 0-10 % Normal MONO% 10.0 LAB L100.2400 0-5 % Normal EO% 0.0 LAB L100.2500 0-1 % Normal BASO% 0.0 LAB L100.2550 0.0-0.9 % Normal IM 0.000 GRAN % Result Comment: IG% - Immature Granulocytes (promyelocytes, myelocytes and metamyelocytes) > 1% indicates that a LEFT SHIFT is Present. LAB L100.2620 2.0-7.7 X10 3/uL Low Absolute Neut 0.2 LAB L100.2720 0.83-4.51 X10 3/ul Low Absolute Lymph 0.09 LAB L100.5500 ADEQ PLT EST Normal MOD DEC LAB L100.5650 PLT MORPH Normal LARGE LAB L100.7300 ANISO Normal 2+ LAB L100.7600 HYPOCHROMASIA Normal 1+ LAB L100.7900 BASO STIP Normal RARE LAB L100.9900 PATH REV Normal Reviewed Result Comment: Pancytopenia. Clinical correlation necessary. Bolivar Abdullahi M.D. 04/17/18 AMENDED REPORT 04/17/18 1503 PATH REV previously reported as: Bella bender Performed By: #### L100.0100 #### [facility] [address]. [place], [place], [address] TYPE AND SCREEN Collected: 04/11/2018 Status: P Source: [place] 10:43 [facility] REPOSITORY Order Comment: CMV NEG?* N Give When? 04/12/18 Irradiated? Y Leukodepleted? Y Reason for Type AND Screen/Red Cells: ANEMIA TYPE CODE TESTS RESULT OUT OF RANGE REFERENCE UNITS LAB B10.0800 O Normal BLOOD TYPE GEL POSITIVE LAB B100.4000 Normal Antibody NEGATIVE Screen Performed By: #### B101.7450 #### [facility] [address] [place], [address] TYPE AND SCREEN Collected: 04/11/2018 Status: F Source: [place] 10:43 [facility] REPOSITORY Order Comment: CMV NEG?* N Give When? 04/12/18 Irradiated? Y Leukodepleted? Y Reason for Type AND Screen/Red Cells: ANEMIA TYPE CODE TESTS RESULT OUT OF RANGE REFERENCE UNITS LAB B10.0800 O Normal BLOOD TYPE GEL POSITIVE LAB B100.4000 Normal Antibody NEGATIVE Screen Performed By: #### B101.7450 #### [facility] [address] [place], [address] RC Collected: 04/11/2018 Status: F Source: [place] 10:43 AM [facility] REPOSITORY TYPE CODE TESTS RESULT OUT OF REFERENCE UNITS RANGE LAB U100.0000 [id number] TRANSFUSED PRODUCT: T AND S with Crossmatch, Red Cells COUNT: 1 Performed By: #### U100.0000 #### Non-[facility] - refer to report for specific site BASIC METABOLIC Collected: 04/11/2018 Status: F Source: [place] PROFILE (BMP) 10:31 AM [facility] REPOSITORY Order Comment: CALL CRITICAL TO [phone] TYPE CODE TESTS RESULT OUT OF RANGE REFERENCE UNITS LAB L501.0100 74-106 mg/dL High GLU 143 Result Comment: Fasting Glucose result greater than or equal to 126 mg/dL suggests DIABETES MELLITUS per A.D.A. criteria. Please note revised GLUCOSE reference range effective 2017. LAB L501.1000 7-18 mg/dL High BUN 26 LAB L501.1100 0.70-1.30 mg/dL High CREAT,SERUM 1.43 Result Comment: The validity of the calculated GFR AND GFRAA in patients over 70 years has not been determined. Clinical correlation is essential. LAB L501.1110 >60 mL/min Low EST GFR 52 Result Comment: Non- GFR Calc LAB L501.1115 >60 mL/min Normal EST GFR - AA 62 Result Comment: GFR Calc LAB L501.1255 ml/min Normal Estimated CRCL 46.69 LAB L501.1300 10-20 RATIO Normal BUN/CRE 18.2 LAB L501.2200 8.5-10 mg/dL Low .1 CA 8.2 LAB L501.5300 136-14 mmol/L Normal 5 NA 139 LAB L501.5600 3.5-5. mmol/L Normal 1 K 4.0 LAB L501.5900 98-107 mmol/L Normal CL 103 LAB L501.6100 21.0-3 mmol/L Normal 2.0 CO2 25.0 LAB L501.6200 5-15 Normal GAP 11 Performed By: #### L500.2500, L500.3400 #### [facility] [address] [place], [address] LIVER PROFILE Collected: 04/11/2018 Status: F Source: [place] 10:31 AM [facility] REPOSITORY Order Comment: CALL CRITICAL TO [phone] TYPE CODE TESTS RESULT OUT OF RANGE REFERENCE UNITS LAB L501.1500 6.4-8.2 g/dL Low T PROT 6.1 LAB L501.1800 3.2-5.0 g/dL Low ALB 3.0 LAB L501.1950 2.2-4.2 g/dL Normal GLOB 3.1 LAB L501.4100 15-37 U/L High AST 44 LAB L501.4305 45-117 U/L High ALK P 303 LAB L501.4405 16-61 U/L High ALT 72 LAB L501.4600 0.20-1.00 mg/dL High T BILI 3.20 LAB L501.4700 0.00-0.30 mg/dL High D BILI 1.56 Performed By: #### L500.2500, L500.3400 #### [facility] [address] [place], [place], [address] CBC W/DIFF, AUTOMATED Collected: 04/11/2018 Status: C Source: [place] 10:31 [facility] REPOSITORY Order Comment: CALL CRITICAL TO [phone] TYPE CODE TESTS RESULT OUT OF RANGE REFERENCE UNITS LAB L100.1000 4.4-11.0 K/mm3 Low alert WBC 0.6 Result Comment: CRITICAL VALUE VERIFIED. CALLED TO BRY BERG 04/11/18 1125 Deondre Padilla. RESULTS READ BACK BY SAME. LAB L100.1200 4.6-6.2 M/mm3 Low RBC 2.65 LAB L100.1300 13.0-16.5 g/dl Low HGB 7.8 LAB L100.1400 40-54 % Low HCT 23.3 LAB L100.1500 80-94 fL Normal MCV 87.9 LAB L100.1600 27.0-32.0 pg Normal MCH 29.4 LAB L100.1700 32-36 g/gl Normal MCHC 33.5 LAB L100.1810 11.6-14.6 % High RDW 16.4 CV LAB L100.1820 35.1-43.9 fl High RDW 52.2 SD LAB L100.1900 150-450 K/mm3 Low alert PLT 27 Result Comment: CRITICAL VALUE VERIFIED. CALLED TO BRY BERG 04/11/18 1123 Deondre Padilla. RESULTS READ BACK BY SAME. LAB L100.2000 6.2-12.0 fl Normal MPV 9.3 LAB L100.2100 47-70 % High NEUT% 83.6 LAB L100.2200 19-41 % Low LY% 13.1 LAB L100.2300 0-10 % Normal MONO% 3.3 LAB L100.2400 0-5 % Normal EO% 0.0 LAB L100.2500 0-1 % Normal BASO% 0.0 LAB L100.2550 0.0-0.9 % Normal IM GRAN % 0.000 Result Comment: IG% - Immature Granulocytes (promyelocytes, myelocytes and metamyelocytes) > 1% indicates that a LEFT SHIFT is Present. LAB L100.2620 2.0-7.7 X10 3/uL Low Absolute Neut 0.5 LAB L100.2720 0.83-4.51 X10 3/ul Low Absolute Lymph 0.08 LAB L100.4500 Normal SMEAR COMMENT COMMENT Result Comment: SLIDE SCANNED - NEUTROPENIA,LYMPHOPENIA,LEUKOCYTOPENIA,THROMBOCYTOPENIA. LAB L100.9900 Normal Reviewed PATH REV Result Comment: Pancytopenia. Clinical correlation necessary. Bolivar Abdullahi M.D. 04/12/18 AMENDED REPORT 04/12/18 1508 PATH REV previously reported as: December Performed By: #### L100.0100 #### [facility] [address] [place] [address]. [place], [address] *POC GLUCOSE BATTERY Collected: 04/10/2018 Status: F Source: [facility] 11:41 AM [facility] REPOSITORY TYPE CODE TESTS RESULT OUT OF REFERENCE UNITS RANGE LAB GLUP 70-99 mg/dL High Glucose (poc 125 device) Result Comment: No BRAVE per RN: PATIENT TYPE LAB PCSTYP *POC Capillary SAMPLE TYPE Blood *POC GLUCOSE BATTERY Collected: 04/10/2018 Status: F Source: [facility] 7:41 AM [facility] REPOSITORY TYPE CODE TESTS RESULT OUT OF REFERENCE UNITS RANGE LAB GLUP 70-99 mg/dL High Glucose (poc 153 device) Result Comment: No BRAVE per RN: PATIENT TYPE LAB PCSTYP *POC Capillary SAMPLE TYPE Blood CBC,PLATELET,DIFFERENTIAL - CCL Collected: Status: F Source: [facility] 04/10/2018 4:07 AM [facility] REPOSITORY TYPE CODE TESTS RESULT OUT OF REFERENCE UNITS RANGE LAB WBC 4.23-9.07 K/uL WBC Count 0.76 Low alert LAB RBC 4.63-6.08 M/uL RBC Count 2.73 Low LAB HGB 13.7-17.5 g/dL Hemoglobin 8.2 Low LAB HCT 40.1-51.0 % Hematocrit 23.9 Low LAB MCV 79.0-92.2 fL Mean Cell 87.5 Volume LAB MCH 25.7-32.2 pg Mean Cell 30.0 Hgb LAB MCHC 32.3-36.5 g/dL Mean Cell 34.3 Hgb Conc LAB RDW 11.6-14.4 % RBC 16.7 High Distribution LAB PLT 163-337 K/uL Platelet 36 Low Count LAB MPV 9.4-12.4 fL Mean 12.4 Platelet Volume LAB NRBC 0.0-0.2 /100 WBC NUCLEATED 3.9 High RBC LAB DTYPE Manual DIFFERENTIAL TYPE Differential LAB SEGS % NEUTROPHIL 95.4 SEGMENTED Result Comment: Toxic granulation present LAB LYM % LYMPHOCYTE % 3.7 LAB MON % MONOCYTE % 0.9 LAB EOS % EOSINOPHIL % 0.0 LAB BASO % BASOPHIL % 0.0 LAB BAND % BAND NEUTROPHIL % 0.0 LAB SBANS 1.78-5. K/uL 38 SEGS + 0.73 Low Bands,Absolute LAB ALYM 1.32-3. K/uL 57 Abs Lymph 0.03 Low LAB AMONO 0.30-0. K/uL 82 Abs Victoria 0.01 Low LAB AEOS <0.55 K/uL Abs Eos 0.00 LAB ABASO <0.09 K/uL Abs Baso 0.00 LAB POLYCH POLYCHROMASIA 1+ LAB TARGET TARGET CELLS Present LAB TEARDR TEARDROP CELLS Present LAB PLTEST PLATELET ESTIMATE Automated platelet count confirmed by manual slide review. Performed By: #### CBCDFC, CA, CHM7, HFP, IPB, LDO, MGO, URICB #### [facility] [address] [place] [id number] [facility] [address] [place] [address] CALCIUM Collected: 04/10/2018 Status: F Source: [facility] 4:07 AM [facility] REPOSITORY TYPE CODE TESTS RESULT OUT OF REFERENCE UNITS RANGE LAB CA 8.6-10.5 mg/dL Calcium 8.8 Performed By: #### CBCDFC, CA, CHM7, HFP, IPB, LDO, MGO, URICB #### [facility] [address] [place] [address] [facility] [address] [place] [address] CHEM 7 Collected: 04/10/2018 Status: F Source: [facility] 4:07 AM [facility] REPOSITORY TYPE CODE TESTS RESULT OUT OF REFERENCE UNITS RANGE LAB BUN 7-22 mg/dL BUN High 30 LAB NA 133-143 mmol/L Sodium 137 LAB K 3.5-5.0 mmol/L Potassium 4.3 LAB CL 98-108 mmol/L Chloride 104 LAB CO2 22-30 mmol/L Low Carbon Dioxide 21 LAB GLUC 70-99 mg/dL Glucose High 150 LAB CREA 0.70-1.30 mg/dL Creatinine 1.24 LAB GAP 7-17 mmol/L Anion Gap 16 LAB BC BUN/CREA Ratio 24 LAB [facility] 278-305 mOsm/kg Osmolality 297 (Calc) LAB GFR >60 mL/min/1.73 Low sqM Est GFR,non 57 New Zealander LAB GFRA >60 mL/min/1.73 sqM Est GFR, >60 Performed By: #### CBCDFC, CA, CHM7, HFP, IPB, LDO, MGO, URICB #### [facility] [address] [place], [place] [id number] [facility] [address] [place] [address] HEPATIC FUNCTION Collected: 04/10/2018 Status: F Source: [facility] 4:07 AM [facility] REPOSITORY TYPE CODE TESTS RESULT OUT OF REFERENCE UNITS RANGE LAB ALB 3.5-5.0 g/dL Low Albumin 3.3 LAB BILD <0.3 mg/dL Bilirubin High Direct 1.5 LAB BILT <1.5 mg/dL Bilirubin High Total 4.1 LAB ALP 32-126 U/L Alkaline High Phosphatase 301 LAB ALT 10-52 U/L ALT 44 LAB AST 14-40 U/L AST 25 LAB TP 6.4-8.3 g/dL Low Total Protein 5.4 Performed By: #### CBCDFC, CA, CHM7, HFP, IPB, LDO, MGO, URICB #### [facility] [address] [place] [address] [facility] [address] [place] [address] INORGANIC PHOSPHATE Collected: 04/10/2018 Status: F Source: [facility] 4:07 AM [facility] REPOSITORY TYPE CODE TESTS RESULT OUT OF REFERENCE UNITS RANGE LAB IP 2.2-4.6 mg/dL Inorg Phosphate 4.3 Performed By: #### CBCDFC, CA, CHM7, HFP, IPB, LDO, MGO, URICB #### [facility] [address] [place] [phone] [place] [address] [address] [place] [address] LD TOTAL Collected: 04/10/2018 Status: F Source: [facility] 4:07 AM [facility] REPOSITORY TYPE CODE TESTS RESULT OUT OF RANGE REFERENCE UNITS LAB LD 100-190 U/L High LD Total 495 Performed By: #### CBCDFC, CA, CHM7, HFP, IPB, LDO, MGO, URICB #### [facility] [address] [place] [phone] [place] [address] [address] [place] [address] MAGNESIUM Collected: 04/10/2018 Status: F Source: [facility] 4:07 AM [facility] REPOSITORY TYPE CODE TESTS RESULT OUT OF REFERENCE UNITS RANGE LAB MG 1.6-2.6 mg/dL Magnesium 1.7 Performed By: #### CBCDFC, CA, CHM7, HFP, IPB, LDO, MGO, URICB #### [facility] [address] [place] [address] [address] [place] [address] URIC ACID Collected: 04/10/2018 Status: F Source: [facility] 4:07 AM [facility] REPOSITORY TYPE CODE TESTS RESULT OUT OF RANGE REFERENCE UNITS LAB URIC 3.5-7.0 mg/dL Uric Acid 4.6 Performed By: #### CBCDFC, CA, CHM7, HFP, IPB, LDO, MGO, URICB #### [facility] [address] [place] [address] *POC GLUCOSE BATTERY Collected: 04/09/2018 Status: F Source: [facility] 9:07 PM [facility] REPOSITORY TYPE CODE TESTS RESULT OUT OF REFERENCE UNITS RANGE LAB GLUP 70-99 mg/dL High Glucose (poc 158 device) Result Comment: Notified RNread back No BRAVE per RN: PATIENT TYPE LAB PCSTYP *POC Capillary SAMPLE TYPE Blood *POC GLUCOSE BATTERY Collected: 04/09/2018 Status: F Source: [facility] 4:59 PM [facility] REPOSITORY TYPE CODE TESTS RESULT OUT OF REFERENCE UNITS RANGE LAB GLUP 70-99 mg/dL Glucose (poc 86 device) Result Comment: Notified RNread back No BRAVE per RN: PATIENT TYPE LAB PCSTYP *POC Capillary SAMPLE TYPE Blood *POC GLUCOSE BATTERY Collected: 04/09/2018 Status: F Source: [facility] 11:23 AM [facility] REPOSITORY TYPE CODE TESTS RESULT OUT OF REFERENCE UNITS RANGE LAB GLUP 70-99 mg/dL High Glucose (poc 226 device) Result Comment: Notified RNread back No BRAVE per RN: PATIENT TYPE LAB PCSTYP *POC Capillary SAMPLE TYPE Blood Observed: 04/09/2018 Status: F Source: [facility] TRANSFUSE PLATELETS 7:47 AM [facility] REPOSITORY CROSSMATCH EXPIRATION: 04/10/2018 UNIT NUMBER: [id number] BLOOD COMPONENT TYPE: Platelet Pheresis,Leukoreduced,[id number] STATUS OF UNIT: Issued, Final TRANSFUSION STATUS: OK TO TRANSFUSE Performed By: #### TPLT #### [facility] [address] [place] [address] [address] [place] [address] *POC GLUCOSE BATTERY Collected: 04/09/2018 Status: F Source: [facility] 7:22 AM [facility] REPOSITORY TYPE CODE TESTS RESULT OUT OF REFERENCE UNITS RANGE LAB GLUP 70-99 mg/dL High Glucose (poc 190 device) Result Comment: Notified RNread back No BRAVE per RN: PATIENT TYPE LAB PCSTYP *POC Capillary SAMPLE TYPE Blood CALCIUM Collected: 04/09/2018 Status: F Source: [facility] 4:37 AM [facility] REPOSITORY TYPE CODE TESTS RESULT OUT OF REFERENCE UNITS RANGE LAB CA 8.6-10.5 mg/dL Low Calcium 7.9 Performed By: #### CA, CHM7, HFP, IPB, LDO, MGO, URICB, CBCDFC #### [facility] [address] [place] [phone] [place] [address] [address] [place] [address] CHEM 7 Collected: 04/09/2018 Status: F Source: [facility] 4:37 AM [facility] REPOSITORY TYPE CODE TESTS RESULT OUT OF REFERENCE UNITS RANGE LAB BUN 7-22 mg/dL BUN High 38 LAB NA 133-143 mmol/L Sodium 135 LAB K 3.5-5.0 mmol/L Potassium 4.2 LAB CL 98-108 mmol/L Chloride 104 LAB CO2 22-30 mmol/L Low Carbon Dioxide 20 LAB GLUC 70-99 mg/dL Glucose High 171 LAB CREA 0.70-1.30 mg/dL Creatinine 1.25 LAB GAP 7-17 mmol/L Anion Gap 15 LAB BC BUN/CREA Ratio 30 LAB [facility] 278-305 mOsm/kg Osmolality 297 (Calc) LAB GFR >60 mL/min/1.73 Low sqM Est GFR,non 57 [place] Ze[place]ander LAB GFRA >60 mL/min/1.73 sqM Est GFR, >60 Performed By: #### CA, CHM7, HFP, IPB, LDO, MGO, URICB, CBCDFC #### [facility] [address] [place] [address] [address] [place] [address] HEPATIC FUNCTION Collected: 04/09/2018 Status: F Source: [facility] 4:37 AM [facility] REPOSITORY TYPE CODE TESTS RESULT OUT OF REFERENCE UNITS RANGE LAB ALB 3.5-5.0 g/dL Low Albumin 3.1 LAB BILD <0.3 mg/dL Bilirubin High Direct 1.7 LAB BILT <1.5 mg/dL Bilirubin High Total 4.1 LAB ALP 32-126 U/L Alkaline High Phosphatase 252 LAB ALT 10-52 U/L ALT 36 LAB AST 14-40 U/L AST 17 LAB TP 6.4-8.3 g/dL Low Total Protein 5.0 Performed By: #### CA, CHM7, HFP, IPB, LDO, MGO, URICB, CBCDFC #### [facility] [address] [place] [phone] [place] [address] [address] [place] [address] INORGANIC PHOSPHATE Collected: 04/09/2018 Status: F Source: [facility] 4:37 AM [facility] REPOSITORY TYPE CODE TESTS RESULT OUT OF REFERENCE UNITS RANGE LAB IP 2.2-4.6 mg/dL Inorg Phosphate 3.9 Performed By: #### CA, CHM7, HFP, IPB, LDO, MGO, URICB, CBCDFC #### [facility] [address] [place] [address] [address] [place] [address] LD TOTAL Collected: 04/09/2018 Status: F Source: [facility] 4:37 AM [facility] REPOSITORY TYPE CODE TESTS RESULT OUT OF RANGE REFERENCE UNITS LAB LD 100-190 U/L High LD Total 552 Performed By: #### CA, CHM7, HFP, IPB, LDO, MGO, URICB, CBCDFC #### [facility] [address] [place] [phone] [place] [address] [address] [place] [address] MAGNESIUM Collected: 04/09/2018 Status: F Source: [facility] 4:37 AM [facility] REPOSITORY TYPE CODE TESTS RESULT OUT OF REFERENCE UNITS RANGE LAB MG 1.6-2.6 mg/dL Magnesium 1.7 Performed By: #### CA, CHM7, HFP, IPB, LDO, MGO, URICB, CBCDFC #### [facility] [address] [place] [address] [address] [place] [address] URIC ACID Collected: 04/09/2018 Status: F Source: [facility] 4:37 AM [facility] REPOSITORY TYPE CODE TESTS RESULT OUT OF RANGE REFERENCE UNITS LAB URIC 3.5-7.0 mg/dL Uric Acid 4.6 Performed By: #### CA, CHM7, HFP, IPB, LDO, MGO, URICB, CBCDFC #### [facility] [address] [place] [address] [facility] [address] [place], [place] [address] CBC,PLATELET,DIFFERENTIAL - CCL Collected: Status: F Source: [facility] 04/09/2018 4:37 AM [facility] REPOSITORY TYPE CODE TESTS RESULT OUT OF REFERENCE UNITS RANGE LAB WBC 4.23-9.07 K/uL Low WBC alert Count 0.62 LAB RBC 4.63-6.08 M/uL Low RBC Count 2.26 LAB HGB 13.7-17.5 g/dL Low alert Hemoglobin 6.9 Result Comment: This result has been called to MORENA EDWARD by Jacqui Hawkins on 04 09 2018 at 0640, and has been read back. LAB HCT 40.1-51.0 % Low Hematocrit 19.9 LAB MCV 79.0-92.2 fL Mean Cell Volume 88.1 LAB MCH 25.7-32.2 pg Mean Cell Hgb 30.5 LAB MCHC 32.3-36.5 g/dL Mean Cell Hgb Conc 34.7 LAB RDW 11.6-14.4 % RBC Distribution High 16.4 LAB PLT 163-337 K/uL Low Platelet Count alert 8 Result Comment: This result has been called to MORENA EDWARD by Jacqui Hawkins on 04 09 2018 at 0640, and has been read back. LAB MPV 9.4-12.4 fL Mean NOT Platelet Volume MEASURED LAB NRBC 0.0-0.2 /100 WBC NUCLEATED 3.2 High RBC LAB DTYPE Manual DIFFERENTIAL TYPE Differential LAB SEGS % NEUTROPHIL 93.0 SEGMENTED LAB LYM % LYMPHOCYTE 7.0 % LAB MON % MONOCYTE % 0.0 LAB EOS % EOSINOPHIL 0.0 % LAB BASO % BASOPHIL % 0.0 LAB BAND % BAND 0.0 NEUTROPHIL % LAB SBANS 1.78-5.38 K/uL SEGS + 0.58 Low Bands,Absolute LAB ALYM 1.32-3.57 K/uL Abs Lymph 0.04 Low LAB AMONO 0.30-0.82 K/uL Abs Victoria 0.00 Low LAB AEOS <0.55 K/uL Abs Eos 0.00 LAB ABASO <0.09 K/uL Abs Baso 0.00 LAB PLTEST PLATELET Automated ESTIMATE platelet count confirmed by manual slide review. LAB RMORPH Red Cell RBC indices Morphology confirmed by manual smear review. Performed By: #### CA, CHM7, HFP, IPB, LDO, MGO, URICB, CBCDFC #### [facility] [address] [place] [address] [address] [place] [address] *POC GLUCOSE BATTERY Collected: 04/08/2018 Status: F Source: [facility] 9:14 PM [facility] REPOSITORY TYPE CODE TESTS RESULT OUT OF REFERENCE UNITS RANGE LAB GLUP 70-99 mg/dL High Glucose (poc 133 device) Result Comment: Notified RNread back No BRAVE per RN: PATIENT TYPE LAB PCSTYP *POC Capillary SAMPLE TYPE Blood CHM7,IP,MG,CA Collected: 04/08/2018 Status: F Source: [facility] 7:06 PM [facility] REPOSITORY TYPE CODE TESTS RESULT OUT OF REFERENCE UNITS RANGE LAB BUN 7-22 mg/dL BUN High 39 LAB NA 133-143 mmol/L Sodium 137 LAB K 3.5-5.0 mmol/L Potassium 4.6 LAB CL 98-108 mmol/L Chloride 105 LAB CO2 22-30 mmol/L Low Carbon Dioxide 21 LAB GLUC 70-99 mg/dL Glucose High 125 LAB CREA 0.70-1.30 mg/dL Creatinine 1.25 LAB GAP 7-17 mmol/L Anion Gap 16 LAB BC BUN/CREA Ratio 31 LAB IP 2.2-4.6 mg/dL Inorg Phosphate 4.1 LAB MG 1.6-2.6 mg/dL Magnesium 1.8 LAB CA 8.6-10.5 mg/dL Low Calcium 8.2 LAB [facility] 278-305 mOsm/kg Osmolality 299 (Calc) LAB GFR >60 mL/min/1.73 Low sqM Est GFR,non 57 [place]ander LAB GFRA >60 mL/min/1.73 sqM Est GFR, >60 Performed By: #### C7PMC, LDO, URICB #### [facility] [address] [place] [address] [address] [place] [address] LD TOTAL Collected: 04/08/2018 Status: F Source: [facility] 7:06 PM [facility] REPOSITORY TYPE CODE TESTS RESULT OUT OF RANGE REFERENCE UNITS LAB LD 100-190 U/L High LD Total 643 Performed By: #### C7PMC, LDO, URICB #### [facility] [address] [place] [phone] [place] [address] [address] [place] [id number] URIC ACID Collected: 04/08/2018 Status: F Source: [facility] 7:06 PM [facility] REPOSITORY TYPE CODE TESTS RESULT OUT OF RANGE REFERENCE UNITS LAB URIC 3.5-7.0 mg/dL Uric Acid 4.1 Performed By: #### C7PMC, LDO, URICB #### [facility] [address] [place] [phone] [place] [address] [address] [place] [address] *POC GLUCOSE BATTERY Collected: 04/08/2018 Status: F Source: [facility] 5:23 PM [facility] REPOSITORY TYPE CODE TESTS RESULT OUT OF REFERENCE UNITS RANGE LAB GLUP 70-99 mg/dL High Glucose (poc 111 device) Result Comment: Notified RNread back No BRAVE per RN: PATIENT TYPE LAB PCSTYP *POC SAMPLE TYPE Venous *POC GLUCOSE BATTERY Collected: 04/08/2018 Status: F Source: [facility] 11:28 AM [facility] REPOSITORY TYPE CODE TESTS RESULT OUT OF REFERENCE UNITS RANGE LAB GLUP 70-99 mg/dL High Glucose (poc 315 device) Result Comment: Notified RNread back No BRAVE per RN: PATIENT TYPE LAB PCSTYP *POC Capillary SAMPLE TYPE Blood *POC GLUCOSE BATTERY Collected: 04/08/2018 Status: F Source: [facility] 7:43 AM [facility] REPOSITORY TYPE CODE TESTS RESULT OUT OF REFERENCE UNITS RANGE LAB GLUP 70-99 mg/dL High Glucose (poc 300 device) Result Comment: Notified RNread back No BRAVE per RN: PATIENT TYPE LAB PCSTYP *POC Capillary SAMPLE TYPE Blood HEPATIC FUNCTION Collected: 04/08/2018 Status: F Source: [facility] PANEL 5:16 AM [facility] REPOSITORY TYPE CODE TESTS RESULT OUT OF REFERENCE UNITS RANGE LAB ALB 3.5-5.0 g/dL Low Albumin 3.1 LAB BILD <0.3 mg/dL Bilirubin High Direct 2.0 LAB BILT <1.5 mg/dL Bilirubin High Total 4.3 LAB ALP 32-126 U/L Alkaline High Phosphatase 293 LAB ALT 10-52 U/L ALT 41 LAB AST 14-40 U/L AST 21 LAB TP 6.4-8.3 g/dL Low Total Protein 5.2 Performed By: #### HFP, CHM7, CA, URICB, IPB, MGO, LDO, CBCDFC #### [facility] [address] [place] [address] [address] CHEM 7 Collected: 04/08/2018 Status: F Source: [facility] 5:16 AM [facility] REPOSITORY TYPE CODE TESTS RESULT OUT OF REFERENCE UNITS RANGE LAB BUN 7-22 mg/dL BUN High 38 LAB NA 133-143 mmol/L Sodium 134 LAB K 3.5-5.0 mmol/L Potassium 4.9 LAB CL 98-108 mmol/L Chloride 102 LAB CO2 22-30 mmol/L Carbon Dioxide 25 LAB GLUC 70-99 mg/dL Glucose High 318 LAB CREA 0.70-1.30 mg/dL Creatinine 1.26 LAB GAP 7-17 mmol/L Anion Gap 12 LAB BC BUN/CREA Ratio 30 LAB [facility] 278-305 mOsm/kg High Osmolality 306 (Calc) LAB GFR >60 mL/min/1.73 Low sqM Est GFR,non 56 [place] LAB GFRA >60 mL/min/1.73 sqM Est GFR, >60 Performed By: #### HFP, CHM7, CA, URICB, IPB, MGO, LDO, CBCDFC #### [facility] [address] [place] [address] [address] CALCIUM Collected: 04/08/2018 Status: F Source: [facility] 5:16 AM [facility] REPOSITORY TYPE CODE TESTS RESULT OUT OF REFERENCE UNITS RANGE LAB CA 8.6-10.5 mg/dL Low Calcium 7.7 Performed By: #### HFP, CHM7, CA, URICB, IPB, MGO, LDO, CBCDFC #### [facility] [address] [place] [id number] [place] [address] [place] [id number] URIC ACID Collected: 04/08/2018 Status: F Source: [facility] 5:16 AM [facility] REPOSITORY TYPE CODE TESTS RESULT OUT OF RANGE REFERENCE UNITS LAB URIC 3.5-7.0 mg/dL Uric Acid 4.2 Performed By: #### HFP, CHM7, CA, URICB, IPB, MGO, LDO, CBCDFC #### [facility] [address] [place] [id number] [place] [address] [address] [place] [id number] INORGANIC PHOSPHATE Collected: 04/08/2018 Status: F Source: [facility] 5:16 AM [facility] REPOSITORY TYPE CODE TESTS RESULT OUT OF REFERENCE UNITS RANGE LAB IP 2.2-4.6 mg/dL Inorg Phosphate 4.5 Performed By: #### HFP, CHM7, CA, URICB, IPB, MGO, LDO, CBCDFC #### [facility] [address] [place] [id number] [place] [address] [address] [place] [id number] MAGNESIUM Collected: 04/08/2018 Status: F Source: [facility] 5:16 [facility] REPOSITORY TYPE CODE TESTS RESULT OUT OF REFERENCE UNITS RANGE LAB MG 1.6-2.6 mg/dL Magnesium 1.7 Performed By: #### HFP, CHM7, CA, URICB, IPB, MGO, LDO, CBCDFC #### [facility] [address] [place] [address] [facility] [address] [place] [address] LD TOTAL Collected: 04/08/2018 Status: F Source: [facility] 5:16 [facility] REPOSITORY TYPE CODE TESTS RESULT OUT OF RANGE REFERENCE UNITS LAB LD 100-190 U/L High LD Total 686 Performed By: #### HFP, CHM7, CA, URICB, IPB, MGO, LDO, CBCDFC #### [facility] [address] [place] [address] [place] [address] [facility] [address] [place], [place] [address] CBC,PLATELET,DIFFERENTIAL - CCL Collected: Status: F Source: [facility] 04/08/2018 5:16 AM [facility] REPOSITORY TYPE CODE TESTS RESULT OUT OF REFERENCE UNITS RANGE LAB WBC 4.23-9.07 K/uL WBC Count 0.55 Low alert LAB RBC 4.63-6.08 M/uL RBC Count 2.40 Low LAB HGB 13.7-17.5 g/dL Hemoglobin 7.3 Low LAB HCT 40.1-51.0 % Hematocrit 21.2 Low LAB MCV 79.0-92.2 fL Mean Cell 88.3 Volume LAB MCH 25.7-32.2 pg Mean Cell 30.4 Hgb LAB MCHC 32.3-36.5 g/dL Mean Cell 34.4 Hgb Conc LAB RDW 11.6-14.4 % RBC 16.6 High Distribution LAB PLT 163-337 K/uL Platelet 11 Low alert Count LAB MPV 9.4-12.4 fL Mean NOT Platelet Volume MEASURED LAB NRBC 0.0-0.2 /100 WBC NUCLEATED 0.0 RBC LAB DTYPE Manual DIFFERENTIAL TYPE Differential LAB SEGS % NEUTROPHIL 79.6 SEGMENTED Result Comment: Toxic granulation present LAB LYM % LYMPHOCYTE 13.3 % LAB MON % MONOCYTE % 0.9 LAB EOS % EOSINOPHIL 0.9 % LAB BASO % BASOPHIL % 0.9 LAB BAND % BAND 0.0 NEUTROPHIL % LAB LPHOMA 0 % LYMPHOMA 4.4 High CELLS LAB SBANS 1.78-5.3 K/uL Low 8 SEGS + 0.44 Bands,Absolute LAB ALYM 1.32-3.5 K/uL Low 7 Abs Lymph 0.07 LAB AMONO 0.30-0.8 K/uL Low 2 Abs Victoria 0.00 LAB AEOS <0.55 K/uL Abs Eos 0.00 LAB ABASO <0.09 K/uL Abs Baso 0.00 LAB ALYOMA 0 K/uL Abs 0.02 High Lymphoma LAB OVALO OVALOCYTES Present LAB TARGET T[employer] Present CELLS LAB PLTEST PLATELET ESTIMATE Automated platelet count confirmed by manual slide review. Performed By: #### HFP, CHM7, CA, URICB, IPB, MGO, LDO, CBCDFC #### [facility] [address] [place] [id number] [facility] [address] [place] [address] *POC GLUCOSE BATTERY Collected: 04/07/2018 Status: F Source: [facility] 9:17 PM [facility] REPOSITORY TYPE CODE TESTS RESULT OUT OF REFERENCE UNITS RANGE LAB GLUP 70-99 mg/dL High Glucose (poc 148 device) Result Comment: No BRAVE per RN: PATIENT TYPE LAB PCSTYP *POC Capillary SAMPLE TYPE Blood *POC GLUCOSE BATTERY Collected: 04/07/2018 Status: F Source: [facility] 4:28 PM [facility] REPOSITORY TYPE CODE TESTS RESULT OUT OF REFERENCE UNITS RANGE LAB GLUP 70-99 mg/dL High Glucose (poc 107 device) Result Comment: No BRAVE per RN: PATIENT TYPE LAB PCSTYP *POC Capillary SAMPLE TYPE Blood CALCIUM Collected: 04/07/2018 Status: F Source: [facility] 4:20 PM [facility] REPOSITORY TYPE CODE TESTS RESULT OUT OF REFERENCE UNITS RANGE LAB CA 8.6-10.5 mg/dL Low Calcium 8.5 Performed By: #### CA, CHM7, IPB, LDO, URICB #### [facility] [address] [place] [phone] [place] [address] [address] [place] [address] CHEM 7 Collected: 04/07/2018 Status: F Source: [facility] 4:20 PM [facility] REPOSITORY TYPE CODE TESTS RESULT OUT OF REFERENCE UNITS RANGE LAB BUN 7-22 mg/dL BUN High 39 LAB NA 133-143 mmol/L Sodium 138 LAB K 3.5-5.0 mmol/L Potassium 3.6 LAB CL 98-108 mmol/L Chloride 103 LAB CO2 22-30 mmol/L Carbon Dioxide 25 LAB GLUC 70-99 mg/dL Glucose 95 LAB CREA 0.70-1.30 mg/dL Creatinine 1.29 LAB GAP 7-17 mmol/L Anion Gap 14 LAB BC BUN/CREA Ratio 30 LAB [facility] 278-305 mOsm/kg Osmolality 297 (Calc) LAB GFR >60 mL/min/1.73 Low sqM Est GFR,non 55 New Ze[place]ander LAB GFRA >60 mL/min/1.73 sqM Est GFR, >60 Performed By: #### CA, CHM7, IPB, LDO, URICB #### [facility] [address] [place] [phone] [place] [address] [address] [place] [address] INORGANIC PHOSPHATE Collected: 04/07/2018 Status: F Source: [facility] 4:20 PM [facility] REPOSITORY TYPE CODE TESTS RESULT OUT OF REFERENCE UNITS RANGE LAB IP 2.2-4.6 mg/dL Inorg Phosphate 4.2 Performed By: #### CA, CHM7, IPB, LDO, URICB #### [facility] [address] [place] [address] [address] [place] [address] 9[address] LD TOTAL Collected: 04/07/2018 Status: F Source: [facility] 4:20 PM [facility] REPOSITORY TYPE CODE TESTS RESULT OUT OF RANGE REFERENCE UNITS LAB LD 100-190 U/L High LD Total 880 Performed By: #### CA, CHM7, IPB, LDO, URICB #### [facility] [address] [place] [address] [address] [place] [address]27 URIC ACID Collected: 04/07/2018 Status: F Source: [facility] 4:20 PM [facility] REPOSITORY TYPE CODE TESTS RESULT OUT OF RANGE REFERENCE UNITS LAB URIC 3.5-7.0 mg/dL Uric Acid 3.9 Performed By: #### CA, CHM7, IPB, LDO, URICB #### [facility] [address] [place] [address] [address] [place] [address] *POC GLUCOSE BATTERY Collected: 04/07/2018 Status: F Source: [facility] 11:26 AM [facility] REPOSITORY TYPE CODE TESTS RESULT OUT OF REFERENCE UNITS RANGE LAB GLUP 70-99 mg/dL High Glucose (poc 154 device) Result Comment: No BRAVE per RN: PATIENT TYPE LAB PCSTYP *POC Capillary SAMPLE TYPE Blood Observed: 04/07/2018 Status: F Source: [facility] TYPE AND CROSS 10:50 AM [facility] REPOSITORY ABO/RH(D): O POSITIVE ANTIBODY SCREEN: NEGATIVE UNIT NUMBER: [id number] BLOOD COMPONENT TYPE: Red Cell,Leukoreduced,[id number] STATUS OF UNIT: Issued, Final TRANSFUSION STATUS: OK TO TRANSFUSE CROSSMATCH RESULT: Electronically Compatible Performed By: #### XM #### [facility] [address] [place] [phone] [place] [address] [address] [place] [address] *POC GLUCOSE BATTERY Collected: 04/07/2018 Status: F Source: [facility] 7:34 AM [facility] REPOSITORY TYPE CODE TESTS RESULT OUT OF REFERENCE UNITS RANGE LAB GLUP 70-99 mg/dL High Glucose (poc 174 device) Result Comment: No BRAVE per RN: PATIENT TYPE LAB PCSTYP *POC Capillary SAMPLE TYPE Blood CALCIUM Collected: 04/07/2018 Status: F Source: [facility] 4:46 AM [facility] REPOSITORY TYPE CODE TESTS RESULT OUT OF REFERENCE UNITS RANGE LAB CA 8.6-10.5 mg/dL Low Calcium 8.1 Performed By: #### CA, CHM7, HFP, IPB, LDO, MGO, URICB, CBCDFC #### [facility] [address] [place] [address] CHEM 7 Collected: 04/07/2018 Status: F Source: [facility] 4:46 AM [facility] REPOSITORY TYPE CODE TESTS RESULT OUT OF REFERENCE UNITS RANGE LAB BUN 7-22 mg/dL BUN High 35 LAB NA 133-143 mmol/L Sodium 137 LAB K 3.5-5.0 mmol/L Potassium 4.2 LAB CL 98-108 mmol/L Chloride 105 LAB CO2 22-30 mmol/L Carbon Dioxide 22 LAB GLUC 70-99 mg/dL Glucose High 187 LAB CREA 0.70-1.30 mg/dL Creatinine 1.17 LAB GAP 7-17 mmol/L Anion Gap 14 LAB BC BUN/CREA Ratio 30 LAB [facility] 278-305 mOsm/kg Osmolality 301 (Calc) LAB GFR >60 mL/min/1.73 sqM Est GFR,non >60 New Zealander LAB GFRA >60 mL/min/1.73 sqM Est GFR, >60 Performed By: #### CA, CHM7, HFP, IPB, LDO, MGO, URICB, CBCDFC #### [facility] [address] [place] [address] [address] [place] [address] HEPATIC FUNCTION Collected: 04/07/2018 Status: F Source: [facility] 4:46 AM [facility] REPOSITORY TYPE CODE TESTS RESULT OUT OF REFERENCE UNITS RANGE LAB ALB 3.5-5.0 g/dL Low Albumin 3.2 LAB BILD <0.3 mg/dL Bilirubin High Direct 2.5 LAB BILT <1.5 mg/dL Bilirubin High Total 5.1 LAB ALP 32-126 U/L Alkaline High Phosphatase 294 LAB ALT 10-52 U/L ALT 49 LAB AST 14-40 U/L AST 26 LAB TP 6.4-8.3 g/dL Low Total Protein 5.4 Performed By: #### CA, CHM7, HFP, IPB, LDO, MGO, URICB, CBCDFC #### [facility] [address] [place] [address] [address] [address] INORGANIC PHOSPHATE Collected: 04/07/2018 Status: F Source: [facility] 4:46 AM [facility] REPOSITORY TYPE CODE TESTS RESULT OUT OF REFERENCE UNITS RANGE LAB IP 2.2-4.6 mg/dL Inorg Phosphate 3.8 Performed By: #### CA, CHM7, HFP, IPB, LDO, MGO, URICB, CBCDFC #### [facility] [address] [place] [address] [address] LD TOTAL Collected: 04/07/2018 Status: F Source: [facility] 4:46 AM [facility] REPOSITORY TYPE CODE TESTS RESULT OUT OF RANGE REFERENCE UNITS LAB LD 100-190 U/L High LD Total 876 Performed By: #### CA, CHM7, HFP, IPB, LDO, MGO, URICB, CBCDFC #### [facility] [address] [place] [address] [address] MAGNESIUM Collected: 04/07/2018 Status: F Source: [facility] 4:46 AM [facility] REPOSITORY TYPE CODE TESTS RESULT OUT OF REFERENCE UNITS RANGE LAB MG 1.6-2.6 mg/dL Magnesium 1.9 Performed By: #### CA, CHM7, HFP, IPB, LDO, MGO, URICB, CBCDFC #### [facility] [address] [place], [place] [phone] [place] [address] [address] [place] [address] URIC ACID Collected: 04/07/2018 Status: F Source: [facility] 4:46 AM [facility] REPOSITORY TYPE CODE TESTS RESULT OUT OF RANGE REFERENCE UNITS LAB URIC 3.5-7.0 mg/dL Uric Acid 3.8 Performed By: #### CA, CHM7, HFP, IPB, LDO, MGO, URICB, CBCDFC #### [facility] [address] [place] [address] [address] [place] [address] CBC,PLATELET,DIFFERENTIAL - CCL Collected: Status: F Source: [facility] 04/07/2018 4:46 AM [facility] REPOSITORY TYPE CODE TESTS RESULT OUT OF REFERENCE UNITS RANGE LAB WBC 4.23-9.07 K/uL WBC Count 1.21 Low alert LAB RBC 4.63-6.08 M/uL RBC Count 2.46 Low LAB HGB 13.7-17.5 g/dL Hemoglobin 7.3 Low LAB HCT 40.1-51.0 % Hematocrit 21.7 Low LAB MCV 79.0-92.2 fL Mean Cell 88.2 Volume LAB MCH 25.7-32.2 pg Mean Cell 29.7 Hgb LAB MCHC 32.3-36.5 g/dL Mean Cell 33.6 Hgb Conc LAB RDW 11.6-14.4 % RBC 16.7 High Distribution LAB PLT 163-337 K/uL Platelet 12 Low alert Count LAB MPV 9.4-12.4 fL Mean NOT Platelet Volume MEASURED LAB NRBC 0.0-0.2 /100 WBC NUCLEATED 0.0 RBC LAB DTYPE Electronic DIFFERENTIAL TYPE Differential LAB IGRE % IMMATURE 0.0 GRANS % LAB SEGS % NEUTROPHIL 89.2 SEGMENTED LAB LYM % LYMPHOCYTE 9.1 % LAB MON % MONOCYTE % 1.7 LAB EOS % EOSINOPHIL 0.0 % LAB BASO % BASOPHIL % 0.0 LAB IGABS <0.04 K/uL IMMATURE <0.04 GRANS ABSOLUTE LAB SBANS 1.78-5.38 K/uL SEGS + 1.08 Low Bands,Absolute LAB ALYM 1.32-3.57 K/uL Abs Lymph 0.11 Low LAB AMONO 0.30-0.82 K/uL Abs Victoria <0.04 Low LAB AEOS <0.55 K/uL Abs Eos <0.04 LAB ABASO <0.09 K/uL Abs Baso <0.04 Performed By: #### CA, CHM7, HFP, IPB, LDO, MGO, URICB, CBCDFC #### [facility] [address] [place] [address] [address] CALCIUM Collected: 04/06/2018 Status: F Source: [facility] 10:15 PM [facility] REPOSITORY TYPE CODE TESTS RESULT OUT OF REFERENCE UNITS RANGE LAB CA 8.6-10.5 mg/dL Low Calcium 8.1 Performed By: #### CA, CHM7, IPB, LDO, MGO, URICB #### [facility] [address] [place] [phone] [place] [address] [address] CHEM 7 Collected: 04/06/2018 Status: F Source: [facility] 10:15 PM [facility] REPOSITORY TYPE CODE TESTS RESULT OUT OF REFERENCE UNITS RANGE LAB BUN 7-22 mg/dL BUN High 34 LAB NA 133-143 mmol/L Sodium 137 LAB K 3.5-5.0 mmol/L Potassium 4.1 LAB CL 98-108 mmol/L Chloride 106 LAB CO2 22-30 mmol/L Carbon Dioxide 24 LAB GLUC 70-99 mg/dL Glucose High 144 LAB CREA 0.70-1.30 mg/dL Creatinine 1.22 LAB GAP 7-17 mmol/L Anion Gap 11 LAB BC BUN/CREA Ratio 28 LAB [facility] 278-305 mOsm/kg Osmolality 298 (Calc) LAB GFR >60 mL/min/1.73 Low sqM Est GFR,non 58 [place]ander LAB GFRA >60 mL/min/1.73 sqM Est GFR, >60 Performed By: #### CA, CHM7, IPB, LDO, MGO, URICB #### [facility] [address] [place] [phone] [place] [address] [address] [place] [address] INORGANIC PHOSPHATE Collected: 04/06/2018 Status: F Source: [facility] 10:15 PM [facility] REPOSITORY TYPE CODE TESTS RESULT OUT OF REFERENCE UNITS RANGE LAB IP 2.2-4.6 mg/dL Inorg Phosphate 3.7 Performed By: #### CA, CHM7, IPB, LDO, MGO, URICB #### [facility] [address] [place] [address] [address] [place] [address] LD TOTAL Collected: 04/06/2018 Status: F Source: [facility] 10:15 PM [facility] REPOSITORY TYPE CODE TESTS RESULT OUT OF RANGE REFERENCE UNITS LAB LD 100-190 U/L High LD Total 849 Performed By: #### CA, CHM7, IPB, LDO, MGO, URICB #### [facility] [address] [place] [address] [address] [place] [address] MAGNESIUM Collected: 04/06/2018 Status: F Source: [facility] 10:15 PM [facility] REPOSITORY TYPE CODE TESTS RESULT OUT OF REFERENCE UNITS RANGE LAB MG 1.6-2.6 mg/dL Magnesium 1.9 Performed By: #### CA, CHM7, IPB, LDO, MGO, URICB #### [facility] [address] [place] [phone] [place] [address] [address] [place] [address] URIC ACID Collected: 04/06/2018 Status: F Source: [facility] 10:15 PM [facility] REPOSITORY TYPE CODE TESTS RESULT OUT OF RANGE REFERENCE UNITS LAB URIC 3.5-7.0 mg/dL Uric Acid 3.7 Performed By: #### CA, CHM7, IPB, LDO, MGO, URICB #### [facility] [address] [place], [place] [id number] [facility] [address] [place] [address] *POC GLUCOSE BATTERY Collected: 04/06/2018 Status: F Source: [facility] 9:15 PM [facility] REPOSITORY TYPE CODE TESTS RESULT OUT OF REFERENCE UNITS RANGE LAB GLUP 70-99 mg/dL High Glucose (poc 132 device) Result Comment: No BRAVE per RN: PATIENT TYPE LAB PCSTYP *POC Capillary SAMPLE TYPE Blood XR CHEST PORTABLE Observed: 04/06/2018 Status: F Source: [facility] 7:36 PM [facility] REPOSITORY EXAM: XR CHEST PORTABLE, 04/06/2018 18:52 PM COMPARISON: February 14, 2018 CLINICAL INDICATIONS: chest pain RELEVANT CLINICAL HISTORY: FINDINGS: (Adequate technique) Life Support Devices: None Chest Wall: Normal Robinson: Normal Mediastinum: Normal Pleural Spaces: No definite pleural effusion. No definite pneumothorax. Lungs: Upper lobe predominant vascular prominence. Bronchial cuffing on the right. No focal consolidation Cardiac Silhouette: Normal, without overall or specific chamber enlargement, or abnormal calcification Thoracic Aorta: Normal Pulmonary Vessels: Distention/redistribution (stage I PVH) IMPRESSION: Pulmonary venous hypertension. ONIN I Collected: 04/06/2018 Status: F Source: [facility] 6:37 PM [facility] REPOSITORY TYPE CODE TESTS RESULT OUT OF REFERENCE UNITS RANGE LAB TROP <0.11 ng/mL Troponin I <0.01 Performed By: #### TROP #### [facility] [address] [place] [address] [address] [place] [address] *POC GLUCOSE BATTERY Collected: 04/06/2018 Status: F Source: [facility] 5:07 PM [facility] REPOSITORY TYPE CODE TESTS RESULT OUT OF REFERENCE UNITS RANGE LAB GLUP 70-99 mg/dL High Glucose (poc 259 device) Result Comment: No BRAVE per RN: PATIENT TYPE LAB PCSTYP *POC Capillary SAMPLE TYPE Blood CALCIUM Collected: 04/06/2018 Status: F Source: [facility] 1:38 PM [facility] REPOSITORY TYPE CODE TESTS RESULT OUT OF REFERENCE UNITS RANGE LAB CA 8.6-10.5 mg/dL Low Calcium 8.4 Performed By: #### CA, CHM7, IPB, LDO, MGO, URICB #### [facility] [address] [place] [address] [address] [place] [address] CHEM 7 Collected: 04/06/2018 Status: F Source: [facility] 1:38 PM [facility] REPOSITORY TYPE CODE TESTS RESULT OUT OF REFERENCE UNITS RANGE LAB BUN 7-22 mg/dL BUN High 36 LAB NA 133-143 mmol/L Sodium 138 LAB K 3.5-5.0 mmol/L Potassium 4.5 LAB CL 98-108 mmol/L Chloride 105 LAB CO2 22-30 mmol/L Carbon Dioxide 23 LAB GLUC 70-99 mg/dL Glucose High 245 LAB CREA 0.70-1.30 mg/dL Creatinine 1.08 LAB GAP 7-17 mmol/L Anion Gap 15 LAB BC BUN/CREA Ratio 33 LAB [facility] 278-305 mOsm/kg High Osmolality 308 (Calc) LAB GFR >60 mL/min/1.73 sqM Est GFR,non >60 [place]ander LAB GFRA >60 mL/min/1.73 sqM Est GFR, >60 Performed By: #### CA, CHM7, IPB, LDO, MGO, URICB #### [facility] [address] [place] [address] [address] [place] [address] INORGANIC PHOSPHATE Collected: 04/06/2018 Status: F Source: [facility] 1:38 PM [facility] REPOSITORY TYPE CODE TESTS RESULT OUT OF REFERENCE UNITS RANGE LAB IP 2.2-4.6 mg/dL Inorg Phosphate 3.3 Performed By: #### CA, CHM7, IPB, LDO, MGO, URICB #### [facility] [address] [place] [address] [address] [place] [address] LD TOTAL Collected: 04/06/2018 Status: F Source: [facility] 1:38 PM [facility] REPOSITORY TYPE CODE TESTS RESULT OUT OF RANGE REFERENCE UNITS LAB LD 100-190 U/L High LD Total 1010 Performed By: #### CA, CHM7, IPB, LDO, MGO, URICB #### [facility] [address] [place] [phone] [place] [address] [address] [place] [address] MAGNESIUM Collected: 04/06/2018 Status: F Source: [facility] 1:38 PM [facility] REPOSITORY TYPE CODE TESTS RESULT OUT OF REFERENCE UNITS RANGE LAB MG 1.6-2.6 mg/dL Magnesium 2.1 Performed By: #### CA, CHM7, IPB, LDO, MGO, URICB #### [facility] [address] [place] [address] [address] [place] [address] URIC ACID Collected: 04/06/2018 Status: F Source: [facility] 1:38 PM [facility] REPOSITORY TYPE CODE TESTS RESULT OUT OF RANGE REFERENCE UNITS LAB URIC 3.5-7.0 mg/dL Uric Acid 3.9 Performed By: #### CA, CHM7, IPB, LDO, MGO, URICB #### [facility] [address] [place] [phone] [place] [address] [address] [place] [address] *POC GLUCOSE BATTERY Collected: 04/06/2018 Status: F Source: [facility] 12:00 PM [facility] REPOSITORY TYPE CODE TESTS RESULT OUT OF REFERENCE UNITS RANGE LAB GLUP 70-99 mg/dL High Glucose (poc 214 device) Result Comment: No BRAVE per RN: PATIENT TYPE LAB PCSTYP *POC Capillary SAMPLE TYPE Blood *POC GLUCOSE BATTERY Collected: 04/06/2018 Status: F Source: [facility] 7:42 AM [facility] REPOSITORY TYPE CODE TESTS RESULT OUT OF REFERENCE UNITS RANGE LAB GLUP 70-99 mg/dL High Glucose (poc 272 device) Result Comment: No BRAVE per RN: PATIENT TYPE LAB PCSTYP *POC Capillary SAMPLE TYPE Blood CALCIUM Collected: 04/06/2018 Status: F Source: [facility] 3:27 AM [facility] REPOSITORY TYPE CODE TESTS RESULT OUT OF REFERENCE UNITS RANGE LAB CA 8.6-10.5 mg/dL Low Calcium 8.0 Performed By: #### CA, CHM7, HFP, IPB, LDO, MGO, URICB, CBCDFC #### [facility] [phone] [place] [address] [address] CHEM 7 Collected: 04/06/2018 Status: F Source: [facility] 3:27 AM [facility] REPOSITORY TYPE CODE TESTS RESULT OUT OF REFERENCE UNITS RANGE LAB BUN 7-22 mg/dL BUN High 38 LAB NA 133-143 mmol/L Sodium 136 LAB K 3.5-5.0 mmol/L High Potassium 5.3 LAB CL 98-108 mmol/L Chloride 105 LAB CO2 22-30 mmol/L Carbon Dioxide 23 LAB GLUC 70-99 mg/dL Glucose High 312 LAB CREA 0.70-1.30 mg/dL Creatinine 1.07 LAB GAP 7-17 mmol/L Anion Gap 13 LAB BC BUN/CREA Ratio 36 LAB [facility] 278-305 mOsm/kg High Osmolality 310 (Calc) LAB GFR >60 mL/min/1.73 sqM Est GFR,non >60 [place]ander LAB GFRA >60 mL/min/1.73 sqM Est GFR, >60 Performed By: #### CA, CHM7, HFP, IPB, LDO, MGO, URICB, CBCDFC #### [facility] [address] [address] HEPATIC FUNCTION Collected: 04/06/2018 Status: F Source: [facility] 3:27 AM [facility] REPOSITORY TYPE CODE TESTS RESULT OUT OF REFERENCE UNITS RANGE LAB ALB 3.5-5.0 g/dL Low Albumin 2.9 LAB BILD <0.3 mg/dL Bilirubin High Direct 2.7 LAB BILT <1.5 mg/dL Bilirubin High Total 5.6 LAB ALP 32-126 U/L Alkaline High Phosphatase 299 LAB ALT 10-52 U/L ALT High 55 LAB AST 14-40 U/L AST 39 LAB TP 6.4-8.3 g/dL Low Total Protein 5.0 Performed By: #### CA, CHM7, HFP, IPB, LDO, MGO, URICB, CBCDFC #### [facility] [address] [place] [phone] [place] [address] [address] [place] [address] INORGANIC PHOSPHATE Collected: 04/06/2018 Status: F Source: [facility] 3:27 AM [facility] REPOSITORY TYPE CODE TESTS RESULT OUT OF REFERENCE UNITS RANGE LAB IP 2.2-4.6 mg/dL Inorg Phosphate 4.1 Performed By: #### CA, CHM7, HFP, IPB, LDO, MGO, URICB, CBCDFC #### [facility] [address] [place] [phone] [place] [address] [address] [place] [address] LD TOTAL Collected: 04/06/2018 Status: F Source: [facility] 3:27 AM [facility] REPOSITORY TYPE CODE TESTS RESULT OUT OF RANGE REFERENCE UNITS LAB LD 100-190 U/L High LD Total 1020 Performed By: #### CA, CHM7, HFP, IPB, LDO, MGO, URICB, CBCDFC #### [facility] [address] [place] [address] [address] [address] MAGNESIUM Collected: 04/06/2018 Status: F Source: [facility] 3:27 AM [facility] REPOSITORY TYPE CODE TESTS RESULT OUT OF REFERENCE UNITS RANGE LAB MG 1.6-2.6 mg/dL Magnesium 2.2 Performed By: #### CA, CHM7, HFP, IPB, LDO, MGO, URICB, CBCDFC #### [facility] [address] [place] [id number] [place] [address] [id number] URIC ACID Collected: 04/06/2018 Status: F Source: [facility] 3:27 AM [facility] REPOSITORY TYPE CODE TESTS RESULT OUT OF RANGE REFERENCE UNITS LAB URIC 3.5-7.0 mg/dL Uric Acid 4.4 Performed By: #### CA, CHM7, HFP, IPB, LDO, MGO, URICB, CBCDFC #### [facility] [address] [address] [place] [address] [address] CBC,PLATELET,DIFFERENTIAL - CCL Collected: Status: F Source: [facility] 04/06/2018 3:27 AM [facility] REPOSITORY TYPE CODE TESTS RESULT OUT OF REFERENCE UNITS RANGE LAB WBC 4.23-9.07 K/uL WBC Count 0.98 Low alert LAB RBC 4.63-6.08 M/uL RBC Count 2.41 Low LAB HGB 13.7-17.5 g/dL Hemoglobin 7.2 Low LAB HCT 40.1-51.0 % Hematocrit 21.2 Low LAB MCV 79.0-92.2 fL Mean Cell 88.0 Volume LAB MCH 25.7-32.2 pg Mean Cell 29.9 Hgb LAB MCHC 32.3-36.5 g/dL Mean Cell 34.0 Hgb Conc LAB RDW 11.6-14.4 % RBC 17.1 High Distribution LAB PLT 163-337 K/uL Platelet 15 Low alert Count LAB MPV 9.4-12.4 fL Mean NOT Platelet Volume MEASURED LAB NRBC 0.0-0.2 /100 WBC NUCLEATED 0.0 RBC LAB DTYPE Manual DIFFERENTIAL TYPE Differential LAB SEGS % NEUTROPHIL 70.6 SEGMENTED LAB LYM % LYMPHOCYTE 8.9 % LAB MON % MONOCYTE % 0.0 LAB EOS % EOSINOPHIL 0.9 % LAB BASO % BASOPHIL % 0.0 LAB BAND % BAND 0.0 NEUTROPHIL % LAB LPHOMA 0 % LYMPHOMA 19.6 High CELLS LAB SBANS 1.78-5.38 K/uL SEGS + 0.69 Low Bands,Absolute LAB ALYM 1.32-3.57 K/uL Abs Lymph 0.09 Low LAB AMONO 0.30-0.82 K/uL Abs Victoria 0.00 Low LAB AEOS <0.55 K/uL Abs Eos 0.01 LAB ABASO <0.09 K/uL Abs Baso 0.00 LAB ALYOMA 0 K/uL Abs 0.19 High Lymphoma LAB TEARDR TEARDROP Present CELLS LAB PLTEST PLATELET Automated ESTIMATE platelet count confirmed by manual slide review. Performed By: #### CA, CHM7, HFP, IPB, LDO, MGO, URICB, CBCDFC #### [facility] [address] [place] [address] [facility] [address] [place] [address] CALCIUM Collected: 04/05/2018 Status: F Source: [facility] 11:09 PM [facility] REPOSITORY TYPE CODE TESTS RESULT OUT OF REFERENCE UNITS RANGE LAB CA 8.6-10.5 mg/dL Low Calcium 8.1 Performed By: #### CA, CHM7, IPB, LDO, MGO, URICB #### [facility] [id number] [place] [address] [address] [place] [address] [address] CHEM 7 Collected: 04/05/2018 Status: F Source: [facility] 11:09 [facility] REPOSITORY TYPE CODE TESTS RESULT OUT OF REFERENCE UNITS RANGE LAB BUN 7-22 mg/dL BUN High 38 LAB NA 133-143 mmol/L Sodium 136 LAB K 3.5-5.0 mmol/L High Potassium 5.2 LAB CL 98-108 mmol/L Chloride 103 LAB CO2 22-30 mmol/L Carbon Dioxide 22 LAB GLUC 70-99 mg/dL Glucose High 274 LAB CREA 0.70-1.30 mg/dL Creatinine 1.08 LAB GAP 7-17 mmol/L Anion Gap 16 LAB BC BUN/CREA Ratio 35 LAB [facility] 278-305 mOsm/kg High Osmolality 308 (Calc) LAB GFR >60 mL/min/1.73 sqM Est GFR,non >60 [place] LAB GFRA >60 mL/min/1.73 sqM Est GFR, >60 Performed By: #### CA, CHM7, IPB, LDO, MGO, URICB #### [facility] [address] [place] [address] INORGANIC PHOSPHATE Collected: 04/05/2018 Status: F Source: [facility] 11:09 [facility] REPOSITORY TYPE CODE TESTS RESULT OUT OF REFERENCE UNITS RANGE LAB IP 2.2-4.6 mg/dL Inorg Phosphate 3.7 Performed By: #### CA, CHM7, IPB, LDO, MGO, URICB #### [facility] [phone] [place] [address] [address] [place] [id number] LD TOTAL Collected: 04/05/2018 Status: F Source: [facility] 11:09 PM [facility] REPOSITORY TYPE CODE TESTS RESULT OUT OF RANGE REFERENCE UNITS LAB LD 100-190 U/L High LD Total 1052 Performed By: #### CA, CHM7, IPB, LDO, MGO, URICB #### [facility] [address] [place] [phone] [place] [address] [address] [place] [address] MAGNESIUM Collected: 04/05/2018 Status: F Source: [facility] 11:09 PM [facility] REPOSITORY TYPE CODE TESTS RESULT OUT OF REFERENCE UNITS RANGE LAB MG 1.6-2.6 mg/dL Magnesium 2.2 Performed By: #### CA, CHM7, IPB, LDO, MGO, URICB #### [facility] [address] [place] [address] [address] [place] [address] URIC ACID Collected: 04/05/2018 Status: F Source: [facility] 11:09 PM [facility] REPOSITORY TYPE CODE TESTS RESULT OUT OF RANGE REFERENCE UNITS LAB URIC 3.5-7.0 mg/dL Uric Acid 4.5 Performed By: #### CA, CHM7, IPB, LDO, MGO, URICB #### [facility] [address] [place] [id number] [place] [address] [address] [place] [address] *POC GLUCOSE BATTERY Collected: 04/05/2018 Status: F Source: [facility] 9:24 PM [facility] REPOSITORY TYPE CODE TESTS RESULT OUT OF REFERENCE UNITS RANGE LAB GLUP 70-99 mg/dL High Glucose (poc 132 device) Result Comment: No BRAVE per RN: PATIENT TYPE LAB PCSTYP *POC Capillary SAMPLE TYPE Blood *POC GLUCOSE BATTERY Collected: 04/05/2018 Status: F Source: [facility] 4:52 PM [facility] REPOSITORY TYPE CODE TESTS RESULT OUT OF REFERENCE UNITS RANGE LAB GLUP 70-99 mg/dL High Glucose (poc 195 device) Result Comment: No BRAVE per RN: PATIENT TYPE LAB PCSTYP *POC Capillary SAMPLE TYPE Blood CALCIUM Collected: 04/05/2018 Status: F Source: [facility] 1:32 PM [facility] REPOSITORY TYPE CODE TESTS RESULT OUT OF REFERENCE UNITS RANGE LAB CA 8.6-10.5 mg/dL Low Calcium 7.7 Performed By: #### CA, CHM7, IPB, LDO, MGO, URICB #### [facility] [address] [place] [phone] [place] [address] [address] [place] [id number] CHEM 7 Collected: 04/05/2018 Status: F Source: [facility] 1:32 PM [facility] REPOSITORY TYPE CODE TESTS RESULT OUT OF REFERENCE UNITS RANGE LAB BUN 7-22 mg/dL BUN High 38 LAB NA 133-143 mmol/L Sodium 137 LAB K 3.5-5.0 mmol/L Potassium 4.4 LAB CL 98-108 mmol/L Chloride 104 LAB CO2 22-30 mmol/L Carbon Dioxide 23 LAB GLUC 70-99 mg/dL Glucose High 192 LAB CREA 0.70-1.30 mg/dL Creatinine 0.99 LAB GAP 7-17 mmol/L Anion Gap 14 LAB BC BUN/CREA Ratio 38 LAB [facility] 278-305 mOsm/kg Osmolality 303 (Calc) LAB GFR >60 mL/min/1.73 sqM Est GFR,non >60 [place] LAB GFRA >60 mL/min/1.73 sqM Est GFR, >60 Performed By: #### CA, CHM7, IPB, LDO, MGO, URICB #### [facility] [address] [place] [address] INORGANIC PHOSPHATE Collected: 04/05/2018 Status: F Source: [facility] 1:32 PM [facility] REPOSITORY TYPE CODE TESTS RESULT OUT OF REFERENCE UNITS RANGE LAB IP 2.2-4.6 mg/dL Inorg Phosphate 3.0 Performed By: #### CA, CHM7, IPB, LDO, MGO, URICB #### [facility] [address] [place] [phone] [place] [address] [address] [place] [address] LD TOTAL Collected: 04/05/2018 Status: F Source: [facility] 1:32 PM [facility] REPOSITORY TYPE CODE TESTS RESULT OUT OF RANGE REFERENCE UNITS LAB LD 100-190 U/L High LD Total 1183 Performed By: #### CA, CHM7, IPB, LDO, MGO, URICB #### [facility] [address] [place] [phone] [place] [address] [address] [place] [address] MAGNESIUM Collected: 04/05/2018 Status: F Source: [facility] 1:32 PM [facility] REPOSITORY TYPE CODE TESTS RESULT OUT OF REFERENCE UNITS RANGE LAB MG 1.6-2.6 mg/dL Magnesium 2.3 Performed By: #### CA, CHM7, IPB, LDO, MGO, URICB #### [facility] [address] [place] [phone] [place] [address] [address] [place] [id number] URIC ACID Collected: 04/05/2018 Status: F Source: [facility] 1:32 PM [facility] REPOSITORY TYPE CODE TESTS RESULT OUT OF RANGE REFERENCE UNITS LAB URIC 3.5-7.0 mg/dL Uric Acid 4.9 Performed By: #### CA, CHM7, IPB, LDO, MGO, URICB #### [facility] [address] [place] [phone] [place] [address] [address] [place] [phone] *POC GLUCOSE BATTERY Collected: 04/05/2018 Status: F Source: [facility] 11:56 AM [facility] REPOSITORY TYPE CODE TESTS RESULT OUT OF REFERENCE UNITS RANGE LAB GLUP 70-99 mg/dL High Glucose (poc 134 device) Result Comment: No BRAVE per RN: PATIENT TYPE LAB PCSTYP *POC Capillary SAMPLE TYPE Blood *POC GLUCOSE BATTERY Collected: 04/05/2018 Status: F Source: [facility] 7:30 AM [facility] REPOSITORY TYPE CODE TESTS RESULT OUT OF REFERENCE UNITS RANGE LAB GLUP 70-99 mg/dL High Glucose (poc 139 device) Result Comment: No BRAVE per RN: PATIENT TYPE LAB PCSTYP *POC Capillary SAMPLE TYPE Blood PT*PTT Collected: 04/05/2018 Status: F Source: [facility] 4:54 AM [facility] REPOSITORY TYPE CODE TESTS RESULT OUT OF RANGE REFERENCE UNITS LAB PT 11.9-14.2 sec High PT 14.6 LAB INR 0.9-1.1 INR 1.1 LAB PTT 24.0-34.3 sec PTT 25.5 Performed By: #### PTPTT, HFP, CHM7, CA, URICB, IPB, MGO, LDO, CBCDFC #### [facility] [address] [place] [phone] [place] [address] [address] [place] [address] HEPATIC FUNCTION Collected: 04/05/2018 Status: F Source: [facility] 4:54 AM [facility] REPOSITORY TYPE CODE TESTS RESULT OUT OF REFERENCE UNITS RANGE LAB ALB 3.5-5.0 g/dL Low Albumin 3.1 LAB BILD <0.3 mg/dL Bilirubin High Direct 2.7 LAB BILT <1.5 mg/dL Bilirubin High Total 5.7 LAB ALP 32-126 U/L Alkaline High Phosphatase 215 LAB ALT 10-52 U/L ALT 45 LAB AST 14-40 U/L AST 35 LAB TP 6.4-8.3 g/dL Low Total Protein 5.2 Performed By: #### PTPTT, HFP, CHM7, CA, URICB, IPB, MGO, LDO, CBCDFC #### [facility] [address] [place] [phone] [place] [address] [address] [place] [id number] CHEM 7 Collected: 04/05/2018 Status: F Source: [facility] 4:54 [facility] REPOSITORY TYPE CODE TESTS RESULT OUT OF REFERENCE UNITS RANGE LAB BUN 7-22 mg/dL BUN High 37 LAB NA 133-143 mmol/L Sodium 138 LAB K 3.5-5.0 mmol/L Potassium 4.5 LAB CL 98-108 mmol/L Chloride 106 LAB CO2 22-30 mmol/L Carbon Dioxide 23 LAB GLUC 70-99 mg/dL Glucose High 124 LAB CREA 0.70-1.30 mg/dL Creatinine 0.99 LAB GAP 7-17 mmol/L Anion Gap 14 LAB BC BUN/CREA Ratio 37 LAB [facility] 278-305 mOsm/kg Osmolality 300 (Calc) LAB GFR >60 mL/min/1.73 sqM Est GFR,non >60 [place]ander LAB GFRA >60 mL/min/1.73 sqM Est GFR, >60 Performed By: #### PTPTT, HFP, CHM7, CA, URICB, IPB, MGO, LDO, CBCDFC #### [facility] [address] [place] [address] [facility] [address] [place] [address] CALCIUM Collected: 04/05/2018 Status: F Source: [facility] 4:54 AM [facility] REPOSITORY TYPE CODE TESTS RESULT OUT OF REFERENCE UNITS RANGE LAB CA 8.6-10.5 mg/dL Low Calcium 7.5 Performed By: #### PTPTT, HFP, CHM7, CA, URICB, IPB, MGO, LDO, CBCDFC #### [facility] [address] [place] [phone] [place] [address] [address] [place] [id number] URIC ACID Collected: 04/05/2018 Status: F Source: [facility] 4:54 AM [facility] REPOSITORY TYPE CODE TESTS RESULT OUT OF RANGE REFERENCE UNITS LAB URIC 3.5-7.0 mg/dL Uric Acid 5.6 Performed By: #### PTPTT, HFP, CHM7, CA, URICB, IPB, MGO, LDO, CBCDFC #### [facility] [address] [place] [phone] [place] [address] [address] [place] [address] INORGANIC PHOSPHATE Collected: 04/05/2018 Status: F Source: [facility] 4:54 AM [facility] REPOSITORY TYPE CODE TESTS RESULT OUT OF REFERENCE UNITS RANGE LAB IP 2.2-4.6 mg/dL Inorg Phosphate 2.8 Performed By: #### PTPTT, HFP, CHM7, CA, URICB, IPB, MGO, LDO, CBCDFC #### [facility] [address] [place] [address] [facility] [address] [place] [address] MAGNESIUM Collected: 04/05/2018 Status: F Source: [facility] 4:54 AM [facility] REPOSITORY TYPE CODE TESTS RESULT OUT OF REFERENCE UNITS RANGE LAB MG 1.6-2.6 mg/dL Magnesium 2.4 Performed By: #### PTPTT, HFP, CHM7, CA, URICB, IPB, MGO, LDO, CBCDFC #### [facility] [address] [place] [address] [facility] [address] [place], [place] [address] LD TOTAL Collected: 04/05/2018 Status: F Source: [facility] 4:54 AM [facility] REPOSITORY TYPE CODE TESTS RESULT OUT OF RANGE REFERENCE UNITS LAB LD 100-190 U/L High LD Total 1374 Performed By: #### PTPTT, HFP, CHM7, CA, URICB, IPB, MGO, LDO, CBCDFC #### [facility] [address] [place] [address] [facility] [address] [place], [place] [address] CBC,PLATELET,DIFFERENTIAL - CCL Collected: Status: F Source: [facility] 04/05/2018 4:54 AM [facility] REPOSITORY TYPE CODE TESTS RESULT OUT OF REFERENCE UNITS RANGE LAB WBC 4.23-9.07 K/uL WBC Count 1.44 Low alert LAB RBC 4.63-6.08 M/uL RBC Count 2.46 Low LAB HGB 13.7-17.5 g/dL Hemoglobin 7.4 Low LAB HCT 40.1-51.0 % Hematocrit 21.2 Low LAB MCV 79.0-92.2 fL Mean Cell 86.2 Volume LAB MCH 25.7-32.2 pg Mean Cell Hgb 30.1 LAB MCHC 32.3-36.5 g/dL Mean Cell Hgb 34.9 Conc LAB RDW 11.6-14.4 % RBC 17.3 High Distribution LAB PLT 163-337 K/uL Platelet Count 29 Low alert LAB MPV 9.4-12.4 fL Mean Platelet 12.5 High Volume LAB NRBC 0.0-0.2 /100 WBC NUCLEATED RBC 0.0 LAB DTYPE DIFFERENTIAL Manual TYPE Differential LAB SEGS % NEUTROPHIL 47.3 SEGMENTED LAB LYM % LYMPHOCYTE % 20.9 LAB MON % MONOCYTE % 1.8 LAB EOS % EOSINOPHIL % 0.0 LAB BASO % BASOPHIL % 0.0 LAB BAND % BAND 0.9 NEUTROPHIL % LAB META % METAMYELOCYTE 0.9 % LAB LPHOMA 0 % LYMPHOMA CELLS 28.2 High LAB SBANS 1.78-5.38 K/uL SEGS + 0.69 Low Bands,Absolute LAB ALYM 1.32-3.57 K/uL Abs Lymph 0.30 Low LAB AMONO 0.30-0.82 K/uL Abs Victoria 0.03 Low LAB AEOS <0.55 K/uL Abs Eos 0.00 LAB ABASO <0.09 K/uL Abs Baso 0.00 LAB AMETA 0.00 K/uL Abs Elkin 0.01 High LAB ALYOMA 0 K/uL Abs Lymphoma 0.41 High LAB OVALO OVALOCYTES Present LAB TEARDR TEARDROP CELLS Present LAB PLTEST PLATELET ESTIMATE Automated platelet count confirmed by manual slide review. Performed By: #### PTPTT, HFP, CHM7, CA, URICB, IPB, MGO, LDO, CBCDFC #### [facility] [address] [address] FERRITIN Collected: 04/05/2018 Status: F Source: [facility] 4:54 AM [facility] REPOSITORY TYPE CODE TESTS RESULT OUT OF RANGE REFERENCE UNITS LAB FERI 22-322 ng/mL High *Ferritin 2230 Performed By: #### FERIB #### [place] [address] CHEM 7 Collected: 04/04/2018 Status: F Source: [facility] 11:48 PM [facility] REPOSITORY TYPE CODE TESTS RESULT OUT OF REFERENCE UNITS RANGE LAB BUN 7-22 mg/dL BUN High 40 LAB NA 133-143 mmol/L Sodium 137 LAB K 3.5-5.0 mmol/L Potassium 4.5 LAB CL 98-108 mmol/L Chloride 108 LAB CO2 22-30 mmol/L Carbon Dioxide 24 LAB GLUC 70-99 mg/dL Glucose High 169 LAB CREA 0.70-1.30 mg/dL Creatinine 1.00 LAB GAP 7-17 mmol/L Anion Gap 10 LAB BC BUN/CREA Ratio 40 LAB [facility] 278-305 mOsm/kg Osmolality 302 (Calc) LAB GFR >60 mL/min/1.73 sqM Est GFR,non >60 [place] LAB GFRA >60 mL/min/1.73 sqM Est GFR, >60 Performed By: #### CHM7, CA, URICB, IPB, MGO, LDO #### [facility] [address] [place] [phone] [place] [address] [address] [place] [address] CALCIUM Collected: 04/04/2018 Status: F Source: [facility] 11:48 PM [facility] REPOSITORY TYPE CODE TESTS RESULT OUT OF REFERENCE UNITS RANGE LAB CA 8.6-10.5 mg/dL Low Calcium 7.5 Performed By: #### CHM7, CA, URICB, IPB, MGO, LDO #### [facility] [address] [place] [address] [address] [place] [address] URIC ACID Collected: 04/04/2018 Status: F Source: [facility] 11:48 PM [facility] REPOSITORY TYPE CODE TESTS RESULT OUT OF RANGE REFERENCE UNITS LAB URIC 3.5-7.0 mg/dL Uric Acid 5.8 Performed By: #### CHM7, CA, URICB, IPB, MGO, LDO #### [facility] [address] [place] [address] [address] [place] [address] INORGANIC PHOSPHATE Collected: 04/04/2018 Status: F Source: [facility] 11:48 PM [facility] REPOSITORY TYPE CODE TESTS RESULT OUT OF REFERENCE UNITS RANGE LAB IP 2.2-4.6 mg/dL Inorg Phosphate 2.9 Performed By: #### CHM7, CA, URICB, IPB, MGO, LDO #### [facility] [address] [place] [phone] [place] [address] [address] [place] [address] MAGNESIUM Collected: 04/04/2018 Status: F Source: [facility] 11:48 PM [facility] REPOSITORY TYPE CODE TESTS RESULT OUT OF REFERENCE UNITS RANGE LAB MG 1.6-2.6 mg/dL Magnesium 2.6 Performed By: #### CHM7, CA, URICB, IPB, MGO, LDO #### [facility] [address] [place] [address] [facility] [address] [place], [place] [address] LD TOTAL Collected: 04/04/2018 Status: F Source: [facility] 11:48 PM [facility] REPOSITORY TYPE CODE TESTS RESULT OUT OF RANGE REFERENCE UNITS LAB LD 100-190 U/L High LD Total 1485 Performed By: #### CHM7, CA, URICB, IPB, MGO, LDO #### [facility] [address] [place] [address] [facility] [address] [place], [place] [address] *POC GLUCOSE BATTERY Collected: 04/04/2018 Status: F Source: [facility] 9:26 PM [facility] REPOSITORY TYPE CODE TESTS RESULT OUT OF REFERENCE UNITS RANGE LAB GLUP 70-99 mg/dL High Glucose (poc 216 device) Result Comment: No BRAVE per RN: PATIENT TYPE LAB PCSTYP *POC Capillary SAMPLE TYPE Blood XR FLUORO LUMBAR Observed: 04/04/2018 Status: F Source: [facility] PUNCTURE 5:44 PM [facility] REPOSITORY EXAM: XR FLUORO LUMBAR PUNCTURE, 04/04/2018 11:36 AM CLINICAL INDICATIONS: 72 years Male MRI brain with pachymeningeal enhancement, non-specific, concern for lymphoma, HLH, or infection RELEVANT CLINICAL HISTORY: Failed at bedside on 03/31, 2 providers attempted at L3-L4 and L4-L5 multiple times without success.; COMPARISON: No previous study is available for comparison. TECHNIQUE AND FINDINGS: Fluoro time: 54 sec Consent: The risks, benefits, and alternatives of procedure were discussed with the patient who provided written and verbal consent. Position: The patient was placed in a prone position on the fluoroscopy table. The overlying skin was marked, prepped and sterilely draped and prepped utilizing sterile barrier technique at the appropriate vertebral body level. Procedure: A time-out was performed. 2ml 1% Lidocaine was used to locally anesthetize the puncture site. Lumbar puncture was performed under fluoroscopic guidance at the L2-L3 level using a 3.5 inch 20 gauge spinal needle. Opening pressure was 25 cm H2O. 14 ml of clear colorless cerebrospinal fluid was removed and sent to the laboratory for analysis. Closing pressure was 15 cm H2O. . The needle was then removed and a bandage applied to the site. The patient tolerated the procedure well without any immediate complications. Blood loss: None. IMPRESSION: Successful fluoroscopic-guided lumbar puncture with 14 ml of clear colorless CSF removed. Opening pressure: 25 cm H2O. Closing pressure: 15 cm H2O. I personally viewed and interpreted these images and I have reviewed and approved this report. *POC GLUCOSE BATTERY Collected: 04/04/2018 Status: F Source: [facility] 5:02 PM [facility] REPOSITORY TYPE CODE TESTS RESULT OUT OF REFERENCE UNITS RANGE LAB GLUP 70-99 mg/dL High Glucose (poc 226 device) Result Comment: No BRAVE per RN: PATIENT TYPE LAB PCSTYP *POC Capillary SAMPLE TYPE Blood CHEM 7 Collected: 04/04/2018 Status: F Source: [facility] 1:03 PM [facility] REPOSITORY TYPE CODE TESTS RESULT OUT OF REFERENCE UNITS RANGE LAB BUN 7-22 mg/dL BUN High 47 LAB NA 133-143 mmol/L Sodium 140 LAB K 3.5-5.0 mmol/L Potassium 4.1 LAB CL 98-108 mmol/L Chloride 107 LAB CO2 22-30 mmol/L Carbon Dioxide 22 LAB GLUC 70-99 mg/dL Glucose High 239 LAB CREA 0.70-1.30 mg/dL Creatinine 1.13 LAB GAP 7-17 mmol/L Anion Gap 15 LAB BC BUN/CREA Ratio 42 LAB [facility] 278-305 mOsm/kg High Osmolality 314 (Calc) LAB GFR >60 mL/min/1.73 sqM Est GFR,non >60 [place] LAB GFRA >60 mL/min/1.73 sqM Est GFR, >60 Performed By: #### CHM7, CA, URICB, IPB, MGO, LDO #### [facility] [place] [address] CALCIUM Collected: 04/04/2018 Status: F Source: [facility] 1:03 PM [facility] REPOSITORY TYPE CODE TESTS RESULT OUT OF REFERENCE UNITS RANGE LAB CA 8.6-10.5 mg/dL Low Calcium 7.5 Performed By: #### CHM7, CA, URICB, IPB, MGO, LDO #### [facility] [address] [place] [phone] [place] [address] [address] [place] [id number] URIC ACID Collected: 04/04/2018 Status: F Source: [facility] 1:03 PM [facility] REPOSITORY TYPE CODE TESTS RESULT OUT OF RANGE REFERENCE UNITS LAB URIC 3.5-7.0 mg/dL Uric Acid 6.4 Performed By: #### CHM7, CA, URICB, IPB, MGO, LDO #### [facility] [address] [place] [address] [address] [place] [address] INORGANIC PHOSPHATE Collected: 04/04/2018 Status: F Source: [facility] 1:03 [facility] REPOSITORY TYPE CODE TESTS RESULT OUT OF REFERENCE UNITS RANGE LAB IP 2.2-4.6 mg/dL Inorg Phosphate 3.5 Performed By: #### CHM7, CA, URICB, IPB, MGO, LDO #### [facility] [address] [place] [address] [address] [place] [address] MAGNESIUM Collected: 04/04/2018 Status: F Source: [facility] 1:03 [facility] REPOSITORY TYPE CODE TESTS RESULT OUT OF REFERENCE UNITS RANGE LAB MG 1.6-2.6 mg/dL High Magnesium 2.8 Performed By: #### CHM7, CA, URICB, IPB, MGO, LDO #### [facility] [address] [place] [phone] [place] [address] [address] [place] [address] LD TOTAL Collected: 04/04/2018 Status: F Source: [facility] 1:03 PM [facility] REPOSITORY TYPE CODE TESTS RESULT OUT OF RANGE REFERENCE UNITS LAB LD 100-190 U/L High LD Total 1976 Performed By: #### CHM7, CA, URICB, IPB, MGO, LDO #### [facility] [address] [place] [address] [facility] [address] [place], [place] [address] Observed: 04/04/2018 Status: F Source: [facility] FUNGUS CULTURE -UHE 1:03 PM [facility] REPOSITORY SOURCE: CEREBRAL SPINAL FLUID: COMMENT: Clear 2 MLS T3 RESULT: NO GROWTH TO DATE REPORT STATUS: 05/02/2018 FINAL Performed By: #### FUN #### [facility] [address] [place] [address] Blood Cultures processed at: [facility] *POC GLUCOSE BATTERY Collected: 04/04/2018 Status: F Source: [facility] 11:36 AM [facility] REPOSITORY TYPE CODE TESTS RESULT OUT OF REFERENCE UNITS RANGE LAB GLUP 70-99 mg/dL High Glucose (poc 299 device) Result Comment: No BRAVE per RN: PATIENT TYPE LAB PCSTYP *POC Capillary SAMPLE TYPE Blood CSF PROT & GLUC Collected: 04/04/2018 Status: F Source: [facility] 8:43 AM [facility] REPOSITORY TYPE CODE TESTS RESULT OUT OF REFERENCE UNITS RANGE LAB CFG 40-70 mg/dL High CSF Glucose 125 LAB CFP 15-45 mg/dL High CSF Protein 46 Performed By: #### CFPG, CSFLDB #### [facility] [address] [place] [address] [facility] [address] [place] [address] #### GIPP #### [facility] (DEFAULT) [address] [place] [address]153 IMMUNOPHENOTYPING, Collected: Status: X Source: [facility] FLUID/TISSUE 04/04/2018 8:43 AM [facility] REPOSITORY TYPE CODE TESTS RESULT OUT OF RANGE REFERENCE UNITS LAB GIPP This result Immunophenot has been yping, cancelled. fluid/tissue Performed By: #### CFPG, CSFLDB #### [facility] [address] [place] [address] [facility] [address] [place] [address] #### GIPP #### [facility] (DEFAULT) [address] [place] [address] 9[address]98 CSF FLUID BATTERY Collected: 04/04/2018 Status: F Source: [facility] 8:43 [facility] REPOSITORY TYPE CODE TESTS RESULT OUT OF REFERENCE UNITS RANGE LAB CSTUBE TUBE(S) CSF 4 TUBE NUMBER LAB SGROS Gross Appearance Colorless (CSF) Result Comment: Clear LAB SSUPN Supernatant (CSF) Not indicated LAB SFWBC <6 /uL WBC (CSF) <3 Result Comment: Performed by manual method LAB SFRBC <3 /uL RBC (CSF) <3 Result Comment: Performed by manual method LAB SNOCC Cells Counted 100 (CSF) LAB SFSEG 0-6 % Neutrophils (CSF) 1 LAB SFLYM 40-80 % Low Lymphocytes (CSF) 21 LAB SFMOMA 15-45 % 78 High Monocytes/Macrophag es, CSF LAB SEOSN % Eosinophils (CSF) 0 LAB SFBAS % Basophils (CSF) 0 LAB DRVBS Differential Jose Rafael Abad, Reviewed by [facility] LAB SFCOM Comment (CSF) There is no evidence of an inflammatory response. Result Comment: Lymphoma cells are not seen. Correlation with gram stain and culture recommended. LAB SFPLAS % Plasma Cells, CSF 0 Performed By: #### CFPG, CSFLDB #### [facility] [address] [place] [address] [facility] [address] [place], [place] [address] #### GIPP #### [facility] (DEFAULT) [address] [place] [address]168 Observed: Status: F Source: [facility] MENINGITIS/ENCEPHALITIS 04/04/2018 8:43 AM [facility] REPOSITORY NOT DETECTED NOT DETECTED NOT DETECTED NOT DETECTED NOT DETECTED NOT DETECTED NOT DETECTED NOT DETECTED NOT DETECTED NOT DETECTED NOT DETECTED NOT DETECTED NOT DETECTED NOT DETECTED A negative result does not exclude the possibility of SQL ARCHITECT infection and should not be used as the sole basis for diagnosis, treatment, or other management decisions. Negative results may occur when the concentration of organism(s), virus(es), or yeast in the specimen is below the limit of detection. The ME panel does not distinguish between latent and active herpesvirus infections(CMV, HHV-6). This test was performed using a film array methof for the detection of: Escherichia coli K1, Haemophilus influenza, LIsteria monocytogenes, Neisseria meningitidis, Streptococcus agalactiae, Strepto coccus pneumoniae, Cytomegalovirus, Enterovirus, Herpes Simplex virus 1 and 2, Human Herpesvirus 6, Human parechovirus, Varicella zoster virus, and Cryptococcus neoformans/jairo. Performed By: #### CSFMEP, EBVFLD #### [place] [address] EBV,PCR,FLUID - UHE Collected: 04/04/2018 Status: F Source: [facility] 8:43 AM [facility] REPOSITORY TYPE CODE TESTS RESULT OUT OF REFERENCE UNITS RANGE LAB SPEEBV EBV CEREBRAL SOURCE SPINAL FLUID: LAB REBV NOT DETECTED EBV PCR NOT DETECTED RESULT Result Comment: This test was performed using a real time PCR assay. The limit of detection for this assay is 516 copies/mL. Results greater than 10,000 copies/mL may improve the specificity and positive predictive erasto ue in HIV patients [Tee C et al (2008) J.Clin Virol. 42:433]. This assay is only to be used for patients with a clinical history and symptoms consistent with EBV infection, and should be interpreted in conjunction with other clinical findings. This test should no t be used to screen asymptomatic patients. This test was developed and its performance characteristics determined by The [facility] at [facility]. It has not been cleared or approved by the FDA. The laboratory is regulated under CLIA as qualified to perform high-complexity testing. This test is used for clinical purposes. It should not be regarded as investigational or for research Performed By: #### CSFMEP, EBVFLD #### [place] [address] IMMUNOPHENOTYPING, Collected: Status: F Source: [facility] FLUID/TISSUE 04/04/2018 8:43 AM [facility] REPOSITORY TYPE CODE TESTS RESULT OUT OF REFERENCE UNITS RANGE LAB ICINT3 Immunophenotyping [place] SEE NOTES Result Comment: (NOTE) IMMUNOPHENOTYPING DIAGNOSIS PATIENT NAME: LEXI DICKINSON : 1945 ACCN#: [id number] SAMPLE TYPE: Cerebral Spinal Fluid PHENOTYPIC DESCRIPTION: LABORATORY INTERPRETATION: Cannot evaluate due to insufficient number of cells. MARKERS TESTED: 7AAD, CD2 MARKERS BILLED: :0 This test was developed and its performance characteristics determined The [facility] at [facility]. It has not been cleared or approved by the FDA. This laboratory is certified under the Clinical Laboratory Improvement Amendments (CLIA) as qualified to perform high complexity clinical laboratory testing. This test is used for clinical purposes. It should not be regarded as investigational or for research. The [facility] Flow Cytometry Laboratory lower limit of CLL MRD detection is 0.1% of the gated lymphocytes. Performed By: #### GIPP #### [facility] [place] [address] [place] [address] [place] [address] CYTOLOGY- NON-LEDGER POSTER Observed: 04/04/2018 Status: F Source: [facility] 8:43 AM [facility] REPOSITORY Cytology Report Patient Name: LEXI DICKINSON Med. Rec. #: [id number] Submitting Physician: JESSE FOFANA ---Clinical History:--- - 72 year old with Mantle cell lymphoma - SQL ARCHITECT changes - MRI with nonspecific findings - Concern for SQL ARCHITECT lymphoma, HLH or infection ---Source of Specimen(s):--- A: Cerebrospinal Fluid Cytologic Diagnosis CEREBROSPINAL FLUID (CYTOLOGY): - No Malignant Cells Are Identified. pexw/PEXW:04/05/2018 ---Electronically Signed Out By Manjinder Bryant Jr, MD--- Material Handler: MONA Vega (ASCP) ---Procedures/Addenda--- Performed By: #### NONGN #### [facility] [address] [place] [address] [facility] [address] [place] [address] CMV BY PCR - FLUID Collected: 04/04/2018 Status: F Source: [facility] 8:43 [facility] REPOSITORY TYPE CODE TESTS RESULT OUT OF REFERENCE UNITS RANGE LAB SOUR7 Specimen URINE Source LAB RES7 Negative Result Negative Result Comment: (NOTE) ADDITIONAL INFORMATION This test was developed and its performance characteristics determined by [facility] in a manner consistent with CLIA requirements. This test has not been cleared or approved by the U.S. Food and Drug Administration. Test performed by [facility] Dpt of Lab Med & Pathology Street Performed By: #### YCMV #### Reference lab information reported with result HISTOPLASMA AG, CSF Collected: 04/04/2018 Status: F Source: [facility] 8:43 [facility] REPOSITORY TYPE CODE TESTS RESULT OUT OF REFERENCE UNITS RANGE LAB HISSP ng/mL Histoplasma Ag, CSF NONE DETECTED LAB HREST Histoplasma Ag, CSF Negative interpreta Result Comment: (NOTE) ADDITIONAL INFORMATION Reference interval: None Detected Results reported as ng/mL in 0.4 - 19 ng/mL range Results above the limit of detection but below 0.4 ng/mL are reported as 'Positive, Below the Limit of Quantification' Results above 19.0 ng/mL are reported as 'Positive, Above the Limit of Quantification' This test was developed and its performance characteristics determined by [facility]. It has not been cleared or approved by the FDA; however, FDA clearance or approval is not currently required for clinical use. The results are not intended to be used as the sole means for clinical diagnosis or patient management decisions. Test Performed by: [facility] [address] [place] [address] Performed By: #### YHISSP #### Reference lab information reported with result *POC GLUCOSE BATTERY Collected: 04/04/2018 Status: F Source: [facility] 7:47 AM [facility] REPOSITORY TYPE CODE TESTS RESULT OUT OF REFERENCE UNITS RANGE LAB GLUP 70-99 mg/dL High Glucose (poc 220 device) Result Comment: No BRAVE per RN: PATIENT TYPE LAB PCSTYP *POC Capillary SAMPLE TYPE Blood PT*PTT Collected: 04/04/2018 Status: F Source: [facility] 4:38 AM [facility] REPOSITORY TYPE CODE TESTS RESULT OUT OF RANGE REFERENCE UNITS LAB PT 11.9-14.2 sec PT 14.1 LAB INR 0.9-1.1 INR 1.1 LAB PTT 24.0-34.3 sec Low PTT 23.0 Result Comment: Specimen integrity checked. Performed By: #### PTPTT, HFP, CHM7, CA, URICB, IPB, MGO, LDO, CBCDFC #### [facility] [place] [address] [place] [address] [place] [address] HEPATIC FUNCTION Collected: 04/04/2018 Status: F Source: [facility] 4:38 [facility] REPOSITORY TYPE CODE TESTS RESULT OUT OF REFERENCE UNITS RANGE LAB ALB 3.5-5.0 g/dL Low Albumin 3.2 LAB BILD <0.3 mg/dL Bilirubin High Direct 2.6 LAB BILT <1.5 mg/dL Bilirubin High Total 5.1 LAB ALP 32-126 U/L Alkaline High Phosphatase 231 LAB ALT 10-52 U/L ALT 49 LAB AST 14-40 U/L AST High 43 LAB TP 6.4-8.3 g/dL Low Total Protein 5.5 Performed By: #### PTPTT, HFP, CHM7, CA, URICB, IPB, MGO, LDO, CBCDFC #### [facility] [address] [place] [address] [facility] [address] [place] [address] CHEM 7 Collected: 04/04/2018 Status: F Source: [facility] 4:38 AM [facility] REPOSITORY TYPE CODE TESTS RESULT OUT OF REFERENCE UNITS RANGE LAB BUN 7-22 mg/dL BUN High 49 LAB NA 133-143 mmol/L Sodium 139 LAB K 3.5-5.0 mmol/L Potassium 4.5 LAB CL 98-108 mmol/L Chloride 108 LAB CO2 22-30 mmol/L Carbon Dioxide 22 LAB GLUC 70-99 mg/dL Glucose High 164 LAB CREA 0.70-1.30 mg/dL Creatinine 1.07 LAB GAP 7-17 mmol/L Anion Gap 14 LAB BC BUN/CREA Ratio 46 LAB OSMC 278-305 mOsm/kg High Osmolality 309 (Calc) LAB GFR >60 mL/min/1.73 sqM Est GFR,non >60 [place] LAB GFRA >60 mL/min/1.73 sqM Est GFR, >60 Performed By: #### PTPTT, HFP, CHM7, CA, URICB, IPB, MGO, LDO, CBCDFC #### [facility] [address] [place] [address] [address] CALCIUM Collected: 04/04/2018 Status: F Source: [facility] 4:38 [facility] REPOSITORY TYPE CODE TESTS RESULT OUT OF REFERENCE UNITS RANGE LAB CA 8.6-10.5 mg/dL Low Calcium 7.2 Performed By: #### PTPTT, HFP, CHM7, CA, URICB, IPB, MGO, LDO, CBCDFC #### [facility] [address] [place] [id number] [place] [address] [address] [place] [address] URIC ACID Collected: 04/04/2018 Status: F Source: [facility] 4:38 [facility] REPOSITORY TYPE CODE TESTS RESULT OUT OF RANGE REFERENCE UNITS LAB URIC 3.5-7.0 mg/dL Uric Acid 6.9 Performed By: #### PTPTT, HFP, CHM7, CA, URICB, IPB, MGO, LDO, CBCDFC #### [facility] [address] [place] [address] [facility] [address] [place] [address] INORGANIC PHOSPHATE Collected: 04/04/2018 Status: F Source: [facility] 4:38 AM [facility] REPOSITORY TYPE CODE TESTS RESULT OUT OF REFERENCE UNITS RANGE LAB IP 2.2-4.6 mg/dL Inorg Phosphate 4.0 Performed By: #### PTPTT, HFP, CHM7, CA, URICB, IPB, MGO, LDO, CBCDFC #### [facility] [address] [place] [address] [address] [place] [address] MAGNESIUM Collected: 04/04/2018 Status: F Source: [facility] 4:38 AM [facility] REPOSITORY TYPE CODE TESTS RESULT OUT OF REFERENCE UNITS RANGE LAB MG 1.6-2.6 mg/dL High Magnesium 2.8 Performed By: #### PTPTT, HFP, CHM7, CA, URICB, IPB, MGO, LDO, CBCDFC #### [facility] [address] [place] [phone] [place] [address] [address] [place] [address] LD TOTAL Collected: 04/04/2018 Status: F Source: [facility] 4:38 AM [facility] REPOSITORY TYPE CODE TESTS RESULT OUT OF RANGE REFERENCE UNITS LAB LD 100-190 U/L High LD Total 2005 Performed By: #### PTPTT, HFP, CHM7, CA, URICB, IPB, MGO, LDO, CBCDFC #### [facility] [address] [place] [phone] [place] [address] [address] [place] [address] CBC,PLATELET,DIFFERENTIAL - CCL Collected: Status: F Source: [facility] 04/04/2018 4:38 AM [facility] REPOSITORY TYPE CODE TESTS RESULT OUT OF REFERENCE UNITS RANGE LAB WBC 4.23-9.07 K/uL Low WBC Count 1.79 LAB RBC 4.63-6.08 M/uL Low RBC Count 2.33 LAB HGB 13.7-17.5 g/dL Low Hemoglobin 7.0 LAB HCT 40.1-51.0 % Low Hematocrit 20.4 LAB MCV 79.0-92.2 fL Mean Cell Volume 87.6 LAB MCH 25.7-32.2 pg Mean Cell Hgb 30.0 LAB MCHC 32.3-36.5 g/dL Mean Cell Hgb Conc 34.3 LAB RDW 11.6-14.4 % RBC High Distribution 17.8 LAB PLT 163-337 K/uL Low Platelet Count 48 Result Comment: Platelet clumps noted on smear. Reported instrument value is acceptable LAB MPV 9.4-12.4 fL Mean 10.2 Platelet Volume LAB NRBC 0.0-0.2 /100 WBC NUCLEATED 0.0 RBC LAB DTYPE Manual DIFFERENTIAL TYPE Differential LAB SEGS % NEUTROPHIL 47.8 SEGMENTED LAB LYM % LYMPHOCYTE 21.2 % LAB MON % MONOCYTE % 1.8 LAB EOS % EOSINOPHIL 1.8 % LAB BASO % BASOPHIL % 0.0 LAB BAND % BAND 0.9 NEUTROPHIL % LAB LPHOMA 0 % LYMPHOMA 26.5 High CELLS LAB SBANS 1.78-5.38 K/uL SEGS + 0.87 Low Bands,Absolute LAB ALYM 1.32-3.57 K/uL Abs Lymph 0.38 Low LAB AMONO 0.30-0.82 K/uL Abs Victoria 0.03 Low LAB AEOS <0.55 K/uL Abs Eos 0.03 LAB ABASO <0.09 K/uL Abs Baso 0.00 LAB ALYOMA 0 K/uL Abs 0.47 High Lymphoma LAB OVALO OVALOCYTES Present LAB [employer] Present CELLS LAB TEARDR TEARDROP Present CELLS LAB PLTEST PLATELET Automated ESTIMATE platelet count confirmed by manual slide review. Performed By: #### PTPTT, HFP, CHM7, CA, URICB, IPB, MGO, LDO, CBCDFC #### [facility] [address] [place] [address] [address] [place] [address] FERRITIN Collected: 04/04/2018 Status: F Source: [facility] 4:38 AM [facility] REPOSITORY TYPE CODE TESTS RESULT OUT OF RANGE REFERENCE UNITS LAB FERI 22-322 ng/mL High *Ferritin 2793 Performed By: #### FERIB #### [facility] [address] [place] [address] [facility] [address] [place] [address] *POC GLUCOSE BATTERY Collected: 04/03/2018 Status: F Source: [facility] 9:16 PM [facility] REPOSITORY TYPE CODE TESTS RESULT OUT OF REFERENCE UNITS RANGE LAB GLUP 70-99 mg/dL High Glucose (poc 256 device) Result Comment: No BRAVE per RN: PATIENT TYPE LAB PCSTYP *POC SAMPLE TYPE Venous CHEM 7 Collected: 04/03/2018 Status: F Source: [facility] 8:59 PM [facility] REPOSITORY TYPE CODE TESTS RESULT OUT OF REFERENCE UNITS RANGE LAB BUN 7-22 mg/dL BUN High 55 LAB NA 133-143 mmol/L Sodium 141 LAB K 3.5-5.0 mmol/L Potassium 4.3 LAB CL 98-108 mmol/L Chloride High 109 LAB CO2 22-30 mmol/L Low Carbon Dioxide 19 LAB GLUC 70-99 mg/dL Glucose High 262 LAB CREA 0.70-1.30 mg/dL Creatinine 1.16 LAB GAP 7-17 mmol/L Anion Gap 17 LAB BC BUN/CREA Ratio 47 LAB [facility] 278-305 mOsm/kg High Osmolality 321 (Calc) LAB GFR >60 mL/min/1.73 sqM Est GFR,non >60 [place] LAB GFRA >60 mL/min/1.73 sqM Est GFR, >60 Performed By: #### CHM7, CA, URICB, IPB, MGO, LDO #### [facility] [address] [place] [address] [address] [place] [address] CALCIUM Collected: 04/03/2018 Status: F Source: [facility] 8:59 PM [facility] REPOSITORY TYPE CODE TESTS RESULT OUT OF REFERENCE UNITS RANGE LAB CA 8.6-10.5 mg/dL Low Calcium 7.4 Performed By: #### CHM7, CA, URICB, IPB, MGO, LDO #### [facility] [address] [place] [address] [facility] [address] [place] [address] URIC ACID Collected: 04/03/2018 Status: F Source: [facility] 8:59 PM [facility] REPOSITORY TYPE CODE TESTS RESULT OUT OF RANGE REFERENCE UNITS LAB URIC 3.5-7.0 mg/dL High Uric Acid 7.4 Performed By: #### CHM7, CA, URICB, IPB, MGO, LDO #### [facility] [address] [place] [address] [address] [place] [address] INORGANIC PHOSPHATE Collected: 04/03/2018 Status: F Source: [facility] 8:59 PM [facility] REPOSITORY TYPE CODE TESTS RESULT OUT OF REFERENCE UNITS RANGE LAB IP 2.2-4.6 mg/dL Inorg Phosphate 3.9 Performed By: #### CHM7, CA, URICB, IPB, MGO, LDO #### [facility] [address] [place] [address] [address] [place] [address] MAGNESIUM Collected: 04/03/2018 Status: F Source: [facility] 8:59 PM [facility] REPOSITORY TYPE CODE TESTS RESULT OUT OF REFERENCE UNITS RANGE LAB MG 1.6-2.6 mg/dL High Magnesium 2.8 Performed By: #### CHM7, CA, URICB, IPB, MGO, LDO #### [facility] [address] [place] [address] [address] [place] [address] LD TOTAL Collected: 04/03/2018 Status: F Source: [facility] 8:59 PM [facility] REPOSITORY TYPE CODE TESTS RESULT OUT OF RANGE REFERENCE UNITS LAB LD 100-190 U/L High LD Total 2139 Performed By: #### CHM7, CA, URICB, IPB, MGO, LDO #### [facility] [address] [place] [address] [address] [place] [address] *POC GLUCOSE BATTERY Collected: 04/03/2018 Status: F Source: [facility] 5:04 PM [facility] REPOSITORY TYPE CODE TESTS RESULT OUT OF REFERENCE UNITS RANGE LAB GLUP 70-99 mg/dL High Glucose (poc 304 device) Result Comment: Notified RNread back No BRAVE per RN: PATIENT TYPE LAB PCSTYP *POC Capillary SAMPLE TYPE Blood *POC GLUCOSE BATTERY Collected: 04/03/2018 Status: F Source: [facility] 3:28 PM [facility] REPOSITORY TYPE CODE TESTS RESULT OUT OF REFERENCE UNITS RANGE LAB GLUP 70-99 mg/dL High Glucose (poc 332 device) Result Comment: Notified RNread back No BRAVE per RN: PATIENT TYPE LAB PCSTYP *POC Capillary SAMPLE TYPE Blood PLATELET COUNT Collected: 04/03/2018 Status: F Source: [facility] 2:55 PM [facility] REPOSITORY TYPE CODE TESTS RESULT OUT OF REFERENCE UNITS RANGE LAB PLT 163-337 K/uL Low Platelet Count 111 LAB MPV 9.4-12.4 fL Mean Platelet 9.7 Volume Performed By: #### PLAT #### [facility] [address] [place] [address] CHEM 7 Collected: 04/03/2018 Status: F Source: [facility] 2:11 PM [facility] REPOSITORY TYPE CODE TESTS RESULT OUT OF REFERENCE UNITS RANGE LAB BUN 7-22 mg/dL BUN High 55 LAB NA 133-143 mmol/L Sodium 137 LAB K 3.5-5.0 mmol/L Potassium 4.0 Result Comment: SLIGHTLY HEMOLYZED LAB CL 98-108 mmol/L Chloride 105 LAB CO2 22-30 mmol/L Low Carbon Dioxide 21 LAB GLUC 70-99 mg/dL Glucose High 326 LAB CREA 0.70-1.30 mg/dL Creatinine 1.28 LAB GAP 7-17 mmol/L Anion Gap 15 LAB BC BUN/CREA Ratio 43 LAB [facility] 278-305 mOsm/kg Osmolality High (Calc) 317 LAB GFR >60 mL/min/1.73sq Low M Est GFR,non 55 LAB GFRA >60 mL/min/1.73sq M Est GFR, >60 Performed By: #### CHM7, CA, URICB, IPB, MGO, LDO #### [facility] [address] [place] [address] [address] [place] [address] CALCIUM Collected: 04/03/2018 Status: F Source: [facility] 2:11 PM [facility] REPOSITORY TYPE CODE TESTS RESULT OUT OF REFERENCE UNITS RANGE LAB CA 8.6-10.5 mg/dL Low Calcium 7.1 Performed By: #### CHM7, CA, URICB, IPB, MGO, LDO #### [facility] [address] [place] [address] [facility] [address] [place] [address] URIC ACID Collected: 04/03/2018 Status: F Source: [facility] 2:11 PM [facility] REPOSITORY TYPE CODE TESTS RESULT OUT OF RANGE REFERENCE UNITS LAB URIC 3.5-7.0 mg/dL High Uric Acid 7.7 Result Comment: SLIGHTLY HEMOLYZED Performed By: #### CHM7, CA, URICB, IPB, MGO, LDO #### [facility] [address] [place] [address] [address] [place] [address] INORGANIC PHOSPHATE Collected: 04/03/2018 Status: F Source: [facility] 2:11 [facility] REPOSITORY TYPE CODE TESTS RESULT OUT OF REFERENCE UNITS RANGE LAB IP 2.2-4.6 mg/dL Inorg High Phosphate 5.1 Result Comment: SLIGHTLY HEMOLYZED Performed By: #### CHM7, CA, URICB, IPB, MGO, LDO #### [facility] [address] [place] [phone] [place] [address] [address] [place] [address] MAGNESIUM Collected: 04/03/2018 Status: F Source: [facility] 2:11 [facility] REPOSITORY TYPE CODE TESTS RESULT OUT OF REFERENCE UNITS RANGE LAB MG 1.6-2.6 mg/dL High Magnesium 2.8 Result Comment: SLIGHTLY HEMOLYZED Performed By: #### CHM7, CA, URICB, IPB, MGO, LDO #### [facility] [address] [place] [address] [facility] [address] [place] [address] LD TOTAL Collected: 04/03/2018 Status: F Source: [facility] 2:11 [facility] REPOSITORY TYPE CODE TESTS RESULT OUT OF RANGE REFERENCE UNITS LAB LD 100-190 U/L High LD Total 2956 Result Comment: SLIGHTLY HEMOLYZED Performed By: #### CHM7, CA, URICB, IPB, MGO, LDO #### [facility] [address] [place] [id number] [place] [address] [address] [place] [address] *POC GLUCOSE BATTERY Collected: 04/03/2018 Status: F Source: [facility] 11:11 AM [facility] REPOSITORY TYPE CODE TESTS RESULT OUT OF REFERENCE UNITS RANGE LAB GLUP 70-99 mg/dL High Glucose (poc 367 device) Result Comment: Notified RNread back No BRAVE per RN: PATIENT TYPE LAB PCSTYP *POC Capillary SAMPLE TYPE Blood PLATELET COUNT Collected: 04/03/2018 Status: F Source: [facility] 10:39 AM [facility] REPOSITORY TYPE CODE TESTS RESULT OUT OF REFERENCE UNITS RANGE LAB PLT 163-337 K/uL Low Platelet Count 44 LAB MPV 9.4-12.4 fL Mean Platelet 10.1 Volume Performed By: #### PLAT #### [facility] [address] [place] [address] [address] [place] [address] *POC GLUCOSE BATTERY Collected: 04/03/2018 Status: F Source: [facility] 7:50 AM [facility] REPOSITORY TYPE CODE TESTS RESULT OUT OF REFERENCE UNITS RANGE LAB GLUP 70-99 mg/dL High Glucose (poc 238 device) Result Comment: No BRAVE per RN: PATIENT TYPE LAB PCSTYP *POC Capillary SAMPLE TYPE Blood PT*PTT Collected: 04/03/2018 Status: F Source: [facility] 4:59 AM [facility] REPOSITORY TYPE CODE TESTS RESULT OUT OF RANGE REFERENCE UNITS LAB PT 11.9-14.2 sec High PT 14.3 LAB INR 0.9-1.1 INR 1.1 LAB PTT 24.0-34.3 sec Low PTT 22.6 Result Comment: Specimen integrity checked. Performed By: #### PTPTT, HFP, CHM7, CA, URICB, IPB, MGO, LDO, CBCDFC #### [facility] [address] [place] [address] [address] [place] [address] HEPATIC FUNCTION Collected: 04/03/2018 Status: F Source: [facility] 4:59 AM [facility] REPOSITORY TYPE CODE TESTS RESULT OUT OF REFERENCE UNITS RANGE LAB ALB 3.5-5.0 g/dL Low Albumin 3.1 LAB BILD <0.3 mg/dL Bilirubin High Direct 2.9 LAB BILT <1.5 mg/dL Bilirubin High Total 5.3 LAB ALP 32-126 U/L Alkaline High Phosphatase 235 LAB ALT 10-52 U/L ALT 43 LAB AST 14-40 U/L AST 38 LAB TP 6.4-8.3 g/dL Low Total Protein 5.2 Performed By: #### PTPTT, HFP, CHM7, CA, URICB, IPB, MGO, LDO, CBCDFC #### [facility] [address] [place] [address] [address] [address] CHEM 7 Collected: 04/03/2018 Status: F Source: [facility] 4:59 AM [facility] REPOSITORY TYPE CODE TESTS RESULT OUT OF REFERENCE UNITS RANGE LAB BUN 7-22 mg/dL BUN High 57 LAB NA 133-143 mmol/L Sodium 138 LAB K 3.5-5.0 mmol/L Potassium 4.1 LAB CL 98-108 mmol/L Chloride 108 LAB CO2 22-30 mmol/L Low Carbon Dioxide 19 LAB GLUC 70-99 mg/dL Glucose High 264 LAB CREA 0.70-1.30 mg/dL Creatinine 1.30 LAB GAP 7-17 mmol/L Anion Gap 15 LAB BC BUN/CREA Ratio 44 LAB [facility] 278-305 mOsm/kg High Osmolality 316 (Calc) LAB GFR >60 mL/min/1.73 Low sqM Est GFR,non 54 [place] Ze[place]ander LAB GFRA >60 mL/min/1.73 sqM Est GFR, >60 Performed By: #### PTPTT, HFP, CHM7, CA, URICB, IPB, MGO, LDO, CBCDFC #### [facility] [address] [place] [address] [address] [place] [address] CALCIUM Collected: 04/03/2018 Status: F Source: [place] [address]:59 AM [facility] REPOSITORY TYPE CODE TESTS RESULT OUT OF REFERENCE UNITS RANGE LAB CA 8.6-10.5 mg/dL Low Calcium 6.9 Performed By: #### PTPTT, HFP, CHM7, CA, URICB, IPB, MGO, LDO, CBCDFC #### [facility] [id number] [place] [address] [address] [address] URIC ACID Collected: 04/03/2018 Status: F Source: [facility] 4:59 AM [facility] REPOSITORY TYPE CODE TESTS RESULT OUT OF RANGE REFERENCE UNITS LAB URIC 3.5-7.0 mg/dL High Uric Acid 8.6 Performed By: #### PTPTT, HFP, CHM7, CA, URICB, IPB, MGO, LDO, CBCDFC #### [facility] [address] [address] INORGANIC PHOSPHATE Collected: 04/03/2018 Status: F Source: [facility] 4:59 AM [facility] REPOSITORY TYPE CODE TESTS RESULT OUT OF REFERENCE UNITS RANGE LAB IP 2.2-4.6 mg/dL Inorg High Phosphate 5.5 Performed By: #### PTPTT, HFP, CHM7, CA, URICB, IPB, MGO, LDO, CBCDFC #### [facility] [address] [address] MAGNESIUM Collected: 04/03/2018 Status: F Source: [facility] 4:59 AM [facility] REPOSITORY TYPE CODE TESTS RESULT OUT OF REFERENCE UNITS RANGE LAB MG 1.6-2.6 mg/dL High Magnesium 2.8 Performed By: #### PTPTT, HFP, CHM7, CA, URICB, IPB, MGO, LDO, CBCDFC #### [facility] [id number] [place] [address] [address] LD TOTAL Collected: 04/03/2018 Status: F Source: [facility] 4:59 AM [facility] REPOSITORY TYPE CODE TESTS RESULT OUT OF RANGE REFERENCE UNITS LAB LD 100-190 U/L High LD Total 2825 Performed By: #### PTPTT, HFP, CHM7, CA, URICB, IPB, MGO, LDO, CBCDFC #### [facility] [address] [place] [address] [facility] [address] [place], [place] [address] CBC,PLATELET,DIFFERENTIAL - CCL Collected: Status: F Source: [facility] 04/03/2018 4:59 AM [facility] REPOSITORY TYPE CODE TESTS RESULT OUT OF REFERENCE UNITS RANGE LAB WBC 4.23-9.07 K/uL Low WBC Count 4.17 LAB RBC 4.63-6.08 M/uL Low RBC Count 2.37 LAB HGB 13.7-17.5 g/dL Low alert Hemoglobin 6.9 Result Comment: This result has been called to MORENA SUE by Ton Krause on 04 03 2018 at 0618, and has been read back. LAB HCT 40.1-51.0 % Hematocrit 20.6 Low LAB MCV 79.0-92.2 fL Mean Cell 86.9 Volume LAB MCH 25.7-32.2 pg Mean Cell Hgb 29.1 LAB MCHC 32.3-36.5 g/dL Mean Cell Hgb 33.5 Conc LAB RDW 11.6-14.4 % RBC 18.9 High Distribution LAB PLT 163-337 K/uL Platelet Count 40 Low LAB MPV 9.4-12.4 fL Mean Platelet 9.8 Volume LAB NRBC 0.0-0.2 /100 WBC NUCLEATED RBC 0.0 LAB DTYPE DIFFERENTIAL Manual TYPE Differential LAB SEGS % NEUTROPHIL 42.5 SEGMENTED LAB LYM % LYMPHOCYTE % 8.8 LAB MON % MONOCYTE % 0.0 LAB EOS % EOSINOPHIL % 0.0 LAB BASO % BASOPHIL % 0.0 LAB BAND % BAND 0.0 NEUTROPHIL % LAB LPHOMA 0 % LYMPHOMA CELLS 48.7 High LAB SBANS 1.78-5.38 K/uL SEGS + 1.77 Low Bands,Absolute LAB ALYM 1.32-3.57 K/uL Abs Lymph 0.37 Low LAB AMONO 0.30-0.82 K/uL Abs Victoria 0.00 Low LAB AEOS <0.55 K/uL Abs Eos 0.00 LAB ABASO <0.09 K/uL Abs Baso 0.00 LAB ALYOMA 0 K/uL Abs Lymphoma 2.03 High LAB OVALO OVALOCYTES Present LAB POLYCH POLYCHROMASIA 1+ LAB TARGET TARGET CELLS Present LAB PLTEST PLATELET Automated ESTIMATE platelet count confirmed by manual slide review. Performed By: #### PTPTT, HFP, CHM7, CA, URICB, IPB, MGO, LDO, CBCDFC #### [facility] [address] [place] [address] [address] [place] [address] FERRITIN Collected: 04/03/2018 Status: F Source: [facility] 4:59 AM [facility] REPOSITORY TYPE CODE TESTS RESULT OUT OF RANGE REFERENCE UNITS LAB FERI 22-322 ng/mL High *Ferritin 4430 Performed By: #### FERIB #### [facility] [address] [place] [address] [place] [address] *POC GLUCOSE BATTERY Collected: 04/03/2018 Status: F Source: [facility] 3:21 AM [facility] REPOSITORY TYPE CODE TESTS RESULT OUT OF REFERENCE UNITS RANGE LAB GLUP 70-99 mg/dL High Glucose (poc 322 device) Result Comment: No BRAVE per RN: PATIENT TYPE LAB PCSTYP *POC Capillary SAMPLE TYPE Blood *POC GLUCOSE BATTERY Collected: 04/03/2018 Status: F Source: [facility] 12:16 AM [facility] REPOSITORY TYPE CODE TESTS RESULT OUT OF REFERENCE UNITS RANGE LAB GLUP 70-99 mg/dL High Glucose (poc 357 device) Result Comment: No BRAVE per RN: PATIENT TYPE LAB PCSTYP *POC Capillary SAMPLE TYPE Blood Observed: 04/03/2018 Status: F Source: [facility] TRANSFUSE PLATELETS 12:00 AM [facility] REPOSITORY CROSSMATCH EXPIRATION: 04/04/2018 UNIT NUMBER: [id number] BLOOD COMPONENT TYPE: Platelet Pheresis,Leukoreduced,[id number] STATUS OF UNIT: Issued, Final TRANSFUSION STATUS: OK TO TRANSFUSE UNIT NUMBER: [id number] BLOOD COMPONENT TYPE: Platelet Pheresis,Leukoreduced,[id number] STATUS OF UNIT: Issued, Final TRANSFUSION STATUS: OK TO TRANSFUSE UNIT NUMBER: [id number] BLOOD COMPONENT TYPE: Platelet Pheresis,Leukoreduced,[id number] STATUS OF UNIT: Issued, Final TRANSFUSION STATUS: OK TO TRANSFUSE Performed By: #### TPLT #### [facility] [address] [place] [id number] [place] [address] [address] [place] [address] *POC GLUCOSE BATTERY Collected: 04/02/2018 Status: F Source: [facility] 10:09 PM [facility] REPOSITORY TYPE CODE TESTS RESULT OUT OF REFERENCE UNITS RANGE LAB GLUP 70-99 mg/dL High alert Glucose (poc 410 device) Result Comment: Notified RNread back No BRAVE per RN: PATIENT TYPE LAB PCSTYP *POC SAMPLE TYPE Venous CHEM 7 Collected: 04/02/2018 Status: F Source: [facility] 9:59 PM [facility] REPOSITORY TYPE CODE TESTS RESULT OUT OF REFERENCE UNITS RANGE LAB BUN 7-22 mg/dL BUN High 58 LAB NA 133-143 mmol/L Sodium 136 LAB K 3.5-5.0 mmol/L Potassium 4.3 LAB CL 98-108 mmol/L Chloride 107 LAB CO2 22-30 mmol/L Low Carbon Dioxide 17 LAB GLUC 70-99 mg/dL High alert Glucose 432 Result Comment: Critical GLU result called to and read back by: MORENA SUE at: 04/02/2018 23:02:38 by : [id number] LAB CREA 0.70-1.30 mg/dL Creatinine High 1.36 LAB GAP 7-17 mmol/L Anion Gap 16 LAB BC BUN/CREA Ratio 43 LAB [facility] 278-305 mOsm/kg Osmolality High (Calc) 323 LAB GFR >60 mL/min/1.73 sqM Est GFR,non Low 52 LAB GFRA >60 mL/min/1.73 sqM Est GFR, >60 Performed By: #### CHM7, CA, URICB, IPB, MGO, LDO #### [facility] [address] [place] [address] [address] [place] [address] CALCIUM Collected: 04/02/2018 Status: F Source: [facility] 9:59 PM [facility] REPOSITORY TYPE CODE TESTS RESULT OUT OF REFERENCE UNITS RANGE LAB CA 8.6-10.5 mg/dL Low Calcium 6.9 Performed By: #### JETTM7, CA, URICB, IPB, MGO, LDO #### [facility] [address] [place] [id number] [place] [address] [address] [place] [address] URIC ACID Collected: 04/02/2018 Status: F Source: [facility] 9:59 PM [facility] REPOSITORY TYPE CODE TESTS RESULT OUT OF RANGE REFERENCE UNITS LAB URIC 3.5-7.0 mg/dL High Uric Acid 8.4 Performed By: #### JETTM7, CA, URICB, IPB, MGO, LDO #### [facility] [address] [place] [address] [address] [place] [address] INORGANIC PHOSPHATE Collected: 04/02/2018 Status: F Source: [facility] 9:59 PM [facility] REPOSITORY TYPE CODE TESTS RESULT OUT OF REFERENCE UNITS RANGE LAB IP 2.2-4.6 mg/dL Inorg High Phosphate 5.2 Performed By: #### CHM7, CA, URICB, IPB, MGO, LDO #### [facility] [address] [place] [address] [address] [place] [address] MAGNESIUM Collected: 04/02/2018 Status: F Source: [facility] 9:59 PM [facility] REPOSITORY TYPE CODE TESTS RESULT OUT OF REFERENCE UNITS RANGE LAB MG 1.6-2.6 mg/dL High Magnesium 2.8 Performed By: #### CHM7, CA, URICB, IPB, MGO, LDO #### [facility] [address] [place] [address] [address] [place] [address] LD TOTAL Collected: 04/02/2018 Status: F Source: [facility] 9:59 PM [facility] REPOSITORY TYPE CODE TESTS RESULT OUT OF RANGE REFERENCE UNITS LAB LD 100-190 U/L High LD Total 3294 Performed By: #### CHM7, CA, URICB, IPB, MGO, LDO #### [facility] [address] [place] [address] [facility] [address] [address] URINALYSIS Collected: 04/02/2018 Status: F Source: [facility] 8:42 PM [facility] REPOSITORY TYPE CODE TESTS RESULT OUT OF RANGE REFERENCE UNITS LAB 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 Appearance Abnormal Urine Cloudy LAB SPGR 1.001-1.035 Specific [place] urine 1.016 LAB UGL Negative mg/dL Glucose Abnormal Urine >=1000 LAB UKET Negative Ketones Urine Negative LAB UBLD Negative Blood Urine Negative LAB UPH 5.0-7.0 pH Urine 5.5 LAB UPR Negative mg/dL Protein Urine Negative LAB UNTR Negative Nitrites Urine Negative LAB ULEU Negative Leukocyte Esterase Negative LAB COLR Yellow Color Yellow LAB UURO <2.0 EU/dL Urobilinogen 1.0 urine LAB UWBC 0-5 /HPF WBC Urine 0-5 LAB URBC 0-2 /HPF RBC Urine 0-2 LAB BACT Absent Bacteria Abnormal Present LAB UCOM COMMENT URINE None LAB EPIS /HPF Squamous Epithelial Absent Performed By: #### URIN #### [facility] [address] [address] LYTES (NA,K,CL,CREA),URINE,RANDOM Collected: Status: F Source: [place] 04/02/2018 8:42 PM [facility] REPOSITORY TYPE CODE TESTS RESULT OUT OF REFERENCE UNITS RANGE LAB NAU1 mmol/L URINE SODIUM 75 LAB KU1 mmol/L URINE POTASSIUM 18.4 LAB CLU1 mmol/L URINE CHLORIDE 83 LAB CREU1 mg/dL Creatinine, 24.00 urine mg/dL Performed By: #### ULYCR #### [facility] [address] [address] *POC GLUCOSE BATTERY Collected: 04/02/2018 Status: F Source: [facility] 6:59 PM [facility] REPOSITORY TYPE CODE TESTS RESULT OUT OF REFERENCE UNITS RANGE LAB GLUP 70-99 mg/dL High alert Glucose (poc 448 device) Result Comment: Notified RNread back No BRAVE per RN: PATIENT TYPE LAB PCSTYP *POC Capillary SAMPLE TYPE Blood Observed: 04/02/2018 Status: F Source: [facility] TRANSFUSE PLATELETS 4:58 PM [facility] REPOSITORY CROSSMATCH EXPIRATION: 04/03/2018 UNIT NUMBER: [id number] BLOOD COMPONENT TYPE: Platelet Pheresis,Leukoreduced,[id number] STATUS OF UNIT: REL FROM [facility] TRANSFUSION STATUS: OK TO TRANSFUSE Performed By: #### TPLT #### [facility] [address] [place] [address] [address] [place] [address] LACTATE, BLOOD Collected: 04/02/2018 Status: F Source: [facility] 4:47 PM [facility] REPOSITORY TYPE CODE TESTS RESULT OUT OF RANGE REFERENCE UNITS LAB LACT 0.5-1.6 mmol/L High Lactate, 2.2 Blood Performed By: #### LACT #### [facility] [address] [place] [address] [address] [place] [address] LIPASE Collected: 04/02/2018 Status: F Source: [facility] 4:47 PM [facility] REPOSITORY TYPE CODE TESTS RESULT OUT OF REFERENCE UNITS RANGE LAB LIPA 11-82 U/L Lipase 23 Performed By: #### LIPA, ACETB #### [facility] [address] [place] [address] [address] [place] [address] BETA HYDROXYBUTYRATE Collected: 04/02/2018 Status: F Source: [facility] 4:47 PM [facility] REPOSITORY TYPE CODE TESTS RESULT OUT OF REFERENCE UNITS RANGE LAB BHY 0.02-0.27 mmol/L Beta Hydroxybutyrate 0.19 Performed By: #### LIPA, ACETB #### [facility] [address] [place] [id number] [place] [address] [address] [place] [address] *POC GLUCOSE BATTERY Collected: 04/02/2018 Status: F Source: [facility] 4:34 PM [facility] REPOSITORY TYPE CODE TESTS RESULT OUT OF REFERENCE UNITS RANGE LAB GLUP 70-99 mg/dL High alert Glucose (poc 430 device) Result Comment: Notified RNread back No BRAVE per RN: PATIENT TYPE LAB PCSTYP *POC Capillary SAMPLE TYPE Blood CHEM 7 Collected: 04/02/2018 Status: F Source: [facility] 3:15 PM [facility] REPOSITORY TYPE CODE TESTS RESULT OUT OF REFERENCE UNITS RANGE LAB BUN 7-22 mg/dL BUN High 56 LAB NA 133-143 mmol/L Sodium 135 LAB K 3.5-5.0 mmol/L Potassium 4.8 LAB CL 98-108 mmol/L Chloride 107 LAB CO2 22-30 mmol/L Low Carbon Dioxide 16 LAB GLUC 70-99 mg/dL High alert Glucose 479 Result Comment: Critical GLU result called to and read back by: RN TONEY MORENO at: 04/02/2018 16:14:44 by : [id number] LAB CREA 0.70-1.30 mg/dL Creatinine High 1.35 LAB GAP 7-17 mmol/L Anion Gap 17 LAB BC BUN/CREA Ratio 41 LAB [facility] 278-305 mOsm/kg Osmolality High (Calc) 325 LAB GFR >60 mL/min/1.73 sqM Est GFR,non Low 52 LAB GFRA >60 mL/min/1.73 sqM Est GFR, >60 Performed By: #### CHM7, CA, URICB, IPB, MGO, LDO #### [facility] [address] [place] [address] [address] [place] [address] CALCIUM Collected: 04/02/2018 Status: F Source: [facility] 3:15 PM [facility] REPOSITORY TYPE CODE TESTS RESULT OUT OF REFERENCE UNITS RANGE LAB CA 8.6-10.5 mg/dL Low Calcium 6.9 Performed By: #### CHM7, CA, URICB, IPB, MGO, LDO #### [facility] [address] [place] [address] URIC ACID Collected: 04/02/2018 Status: F Source: [facility] 3:15 PM [facility] REPOSITORY TYPE CODE TESTS RESULT OUT OF RANGE REFERENCE UNITS LAB URIC 3.5-7.0 mg/dL High Uric Acid 7.8 Performed By: #### CHM7, CA, URICB, IPB, MGO, LDO #### [facility] [address] [place] [id number] [place] [address] [address] [place] [address] INORGANIC PHOSPHATE Collected: 04/02/2018 Status: F Source: [facility] 3:15 PM [facility] REPOSITORY TYPE CODE TESTS RESULT OUT OF REFERENCE UNITS RANGE LAB IP 2.2-4.6 mg/dL Inorg High Phosphate 5.2 Performed By: #### CHM7, CA, URICB, IPB, MGO, LDO #### [facility] [address] [place] [address] [address] [place] [address] MAGNESIUM Collected: 04/02/2018 Status: F Source: [facility] 3:15 PM [facility] REPOSITORY TYPE CODE TESTS RESULT OUT OF REFERENCE UNITS RANGE LAB MG 1.6-2.6 mg/dL High Magnesium 2.9 Performed By: #### CHM7, CA, URICB, IPB, MGO, LDO #### [facility] [address] [place] [id number] [place] [address] [address] [place] [address] LD TOTAL Collected: 04/02/2018 Status: F Source: [facility] 3:15 PM [facility] REPOSITORY TYPE CODE TESTS RESULT OUT OF RANGE REFERENCE UNITS LAB LD 100-190 U/L High LD Total 4193 Performed By: #### CHM7, CA, URICB, IPB, MGO, LDO #### [facility] [address] [place] [id number] [place] [address] [address] [place] [address] *POC GLUCOSE BATTERY Collected: 04/02/2018 Status: F Source: [facility] 11:56 AM [facility] REPOSITORY TYPE CODE TESTS RESULT OUT OF REFERENCE UNITS RANGE LAB GLUP 70-99 mg/dL High alert Glucose (poc 410 device) Result Comment: Notified RNread back No BRAVE per RN: PATIENT TYPE LAB PCSTYP *POC Capillary SAMPLE TYPE Blood Observed: 04/02/2018 Status: F Source: [facility] 7:54 AM [facility] REPOSITORY ABO/RH(D): O POSITIVE ANTIBODY SCREEN: NEGATIVE UNIT NUMBER: [id number] BLOOD COMPONENT TYPE: Red Cell,Leukoreduced,[id number] STATUS OF UNIT: Issued, Final TRANSFUSION STATUS: OK TO TRANSFUSE CROSSMATCH RESULT: Electronically Compatible UNIT NUMBER: [id number] BLOOD COMPONENT TYPE: Red Cell, Leukoreduced, [id number] STATUS OF UNIT: Issued, Final TRANSFUSION STATUS: OK TO TRANSFUSE CROSSMATCH RESULT: Electronically Compatible UNIT NUMBER: [id number] BLOOD COMPONENT TYPE: Red Cell,Leukoreduced,[id number] STATUS OF UNIT: Issued, Final TRANSFUSION STATUS: OK TO TRANSFUSE CROSSMATCH RESULT: Electronically Compatible Performed By: #### XM #### [facility] [address] [place] [address] [address] [place] [address] HEPATIC FUNCTION Collected: 04/02/2018 Status: F Source: [facility] 5:15 [facility] REPOSITORY TYPE CODE TESTS RESULT OUT OF REFERENCE UNITS RANGE LAB ALB 3.5-5.0 g/dL Low Albumin 3.1 LAB BILD <0.3 mg/dL Bilirubin High Direct 3.3 LAB BILT <1.5 mg/dL Bilirubin High Total 5.5 LAB ALP 32-126 U/L Alkaline High Phosphatase 273 LAB ALT 10-52 U/L ALT 39 LAB AST 14-40 U/L AST High 70 LAB TP 6.4-8.3 g/dL Low Total Protein 5.2 Performed By: #### HFP, CHM7, CA, URICB, IPB, MGO, LDO, PTPTT, CBCDFC #### [facility] [address] [place] [address] [address] [address] CHEM 7 Collected: 04/02/2018 Status: F Source: [facility] 5:15 [facility] REPOSITORY TYPE CODE TESTS RESULT OUT OF REFERENCE UNITS RANGE LAB BUN 7-22 mg/dL BUN High 51 LAB NA 133-143 mmol/L Sodium 137 LAB K 3.5-5.0 mmol/L Potassium 4.4 LAB CL 98-108 mmol/L Chloride 108 LAB CO2 22-30 mmol/L Low Carbon Dioxide 17 LAB GLUC 70-99 mg/dL Glucose High 399 LAB CREA 0.70-1.30 mg/dL High Creatinine 1.31 LAB GAP 7-17 mmol/L Anion Gap 16 LAB BC BUN/CREA Ratio 39 LAB [facility] 278-305 mOsm/kg High Osmolality 321 (Calc) LAB GFR >60 mL/min/1.73 Low sqM Est GFR,non 54 [place] LAB GFRA >60 mL/min/1.73 sqM Est GFR, >60 Performed By: #### HFP, CHM7, CA, URICB, IPB, MGO, LDO, PTPTT, CBCDFC #### [facility] [address] [place] [address] CALCIUM Collected: 04/02/2018 Status: F Source: [facility] 5:15 AM [facility] REPOSITORY TYPE CODE TESTS RESULT OUT OF REFERENCE UNITS RANGE LAB CA 8.6-10.5 mg/dL Low Calcium 6.5 Performed By: #### HFP, CHM7, CA, URICB, IPB, MGO, LDO, PTPTT, CBCDFC #### [facility] [address] [place] [address] URIC ACID Collected: 04/02/2018 Status: F Source: [facility] 5:15 AM [facility] REPOSITORY TYPE CODE TESTS RESULT OUT OF RANGE REFERENCE UNITS LAB URIC 3.5-7.0 mg/dL High Uric Acid 7.5 Performed By: #### HFP, CHM7, CA, URICB, IPB, MGO, LDO, PTPTT, CBCDFC #### [facility] [address] [address] INORGANIC PHOSPHATE Collected: 04/02/2018 Status: F Source: [facility] 5:15 AM [facility] REPOSITORY TYPE CODE TESTS RESULT OUT OF REFERENCE UNITS RANGE LAB IP 2.2-4.6 mg/dL Inorg High Phosphate 5.4 Performed By: #### HFP, CHM7, CA, URICB, IPB, MGO, LDO, PTPTT, CBCDFC #### [facility] [id number] [place] [address] [address] [place] [address] MAGNESIUM Collected: 04/02/2018 Status: F Source: [facility] 5:15 AM [facility] REPOSITORY TYPE CODE TESTS RESULT OUT OF REFERENCE UNITS RANGE LAB MG 1.6-2.6 mg/dL High Magnesium 2.8 Performed By: #### HFP, CHM7, CA, URICB, IPB, MGO, LDO, PTPTT, CBCDFC #### [facility] [address] [place] [address] [address] [address] LD TOTAL Collected: 04/02/2018 Status: F Source: [facility] 5:15 AM [facility] REPOSITORY TYPE CODE TESTS RESULT OUT OF RANGE REFERENCE UNITS LAB LD 100-190 U/L High LD Total 4555 Performed By: #### HFP, CHM7, CA, URICB, IPB, MGO, LDO, PTPTT, CBCDFC #### [facility] [address] [place] [address] [address] [address] PT*PTT Collected: 04/02/2018 Status: F Source: [facility] 5:15 AM [facility] REPOSITORY TYPE CODE TESTS RESULT OUT OF RANGE REFERENCE UNITS LAB PT 11.9-14.2 sec High PT 15.9 LAB INR 0.9-1.1 High INR 1.3 LAB PTT 24.0-34.3 sec PTT 25.6 Performed By: #### HFP, CHM7, CA, URICB, IPB, MGO, LDO, PTPTT, CBCDFC #### [facility] [address] [place] [address] CBC,PLATELET,DIFFERENTIAL - CCL Collected: Status: F Source: [facility] 04/02/2018 5:15 AM [facility] REPOSITORY TYPE CODE TESTS RESULT OUT OF REFERENCE UNITS RANGE LAB WBC 4.23-9.07 K/uL WBC Count 8.74 LAB RBC 4.63-6.08 M/uL Low RBC Count 2.23 LAB HGB 13.7-17.5 g/dL Low alert Hemoglobin 6.6 Result Comment: This result has been called to MORENA CLARK by Sarah Vines on 04 02 2018 at 0640, and has been read back. LAB HCT 40.1-51.0 % Hematocrit 19.5 Low LAB MCV 79.0-92.2 fL Mean Cell 87.4 Volume LAB MCH 25.7-32.2 pg Mean Cell 29.6 Hgb LAB MCHC 32.3-36.5 g/dL Mean Cell 33.8 Hgb Conc LAB RDW 11.6-14.4 % RBC 19.9 High Distribution LAB PLT 163-337 K/uL Platelet 23 Low alert Count LAB MPV 9.4-12.4 fL Mean 8.1 Low Platelet Volume LAB NRBC 0.0-0.2 /100 WBC NUCLEATED 0.0 RBC LAB DTYPE Manual DIFFERENTIAL TYPE Differential LAB SEGS % NEUTROPHIL 25.0 SEGMENTED LAB LYM % LYMPHOCYTE 18.8 % LAB MON % MONOCYTE % 3.6 LAB EOS % EOSINOPHIL 3.6 % LAB BASO % BASOPHIL % 0.0 LAB BAND % BAND 0.9 NEUTROPHIL % LAB LPHOMA 0 % LYMPHOMA 48.1 High CELLS LAB SBANS 1.78-5.38 K/uL SEGS + 2.26 Bands,Absolute LAB ALYM 1.32-3.57 K/uL Abs Lymph 1.64 LAB AMONO 0.30-0.82 K/uL Abs Victoria 0.31 LAB AEOS <0.55 K/uL Abs Eos 0.31 LAB ABASO <0.09 K/uL Abs Baso 0.00 LAB ALYOMA 0 K/uL Abs 4.20 High Lymphoma LAB PLTEST PLATELET Automated ESTIMATE platelet count confirmed by manual slide review. LAB RMORPH Red Cell RBC indices Morphology confirmed by manual smear review. Performed By: #### HFP, CHM7, CA, URICB, IPB, MGO, LDO, PTPTT, CBCDFC #### [facility] [address] [place] [address] [address] [place] [address] FERRITIN Collected: 04/02/2018 Status: F Source: [facility] 5:15 AM [facility] REPOSITORY TYPE CODE TESTS RESULT OUT OF RANGE REFERENCE UNITS LAB FERI 22-322 ng/mL High *Ferritin 5455 Performed By: #### FERIB #### [facility] [address] [place] [address] [facility] [address] [place] [address] POTASSIUM Collected: 04/01/2018 Status: F Source: [facility] 7:33 PM [facility] REPOSITORY TYPE CODE TESTS RESULT OUT OF REFERENCE UNITS RANGE LAB K 3.5-5.0 mmol/L Potassium 4.5 Performed By: #### KKO #### [facility] [address] [place] [address] [address] [place] [address] CHEM 6 Collected: 04/01/2018 Status: F Source: [facility] 3:42 PM [facility] REPOSITORY TYPE CODE TESTS RESULT OUT OF REFERENCE UNITS RANGE LAB BUN 7-22 mg/dL BUN High 45 LAB NA 133-143 mmol/L Sodium 134 LAB K 3.5-5.0 mmol/L High Potassium 5.7 Result Comment: SLIGHTLY HEMOLYZED LAB CL 98-108 mmol/L Chloride 105 LAB CO2 22-30 mmol/L Low Carbon Dioxide 18 LAB CREA 0.70-1.30 mg/dL Creatinine High 1.57 LAB GAP 7-17 mmol/L Anion Gap 17 LAB BC BUN/CREA Ratio 29 LAB GFR >60 mL/min/1.73sq Low M Est GFR,non 44 LAB GFRA >60 mL/min/1.73sq Low M Est GFR, 53 Performed By: #### CHM6 #### [facility] [address] [place] [address] [address] [place] [address] PT*PTT Collected: 04/01/2018 Status: F Source: [facility] 3:08 AM [facility] REPOSITORY TYPE CODE TESTS RESULT OUT OF RANGE REFERENCE UNITS LAB PT 11.9-14.2 sec High PT 15.0 LAB INR 0.9-1.1 High INR 1.2 LAB PTT 24.0-34.3 sec PTT 27.5 Performed By: #### PTPTT, HFP, CHM7, CA, URICB, IPB, MGO, LDO, CBCDFC #### [facility] [address] [place] [address] [address] [place] [address] HEPATIC FUNCTION Collected: 04/01/2018 Status: F Source: [facility] 3:08 AM [facility] REPOSITORY TYPE CODE TESTS RESULT OUT OF REFERENCE UNITS RANGE LAB ALB 3.5-5.0 g/dL Low Albumin 3.3 LAB BILD <0.3 mg/dL Bilirubin High Direct 3.9 LAB BILT <1.5 mg/dL Bilirubin High Total 6.7 LAB ALP 32-126 U/L Alkaline High Phosphatase 277 LAB ALT 10-52 U/L ALT 45 LAB AST 14-40 U/L AST High 110 LAB TP 6.4-8.3 g/dL Low Total Protein 5.8 Performed By: #### PTPTT, HFP, CHM7, CA, URICB, IPB, MGO, LDO, CBCDFC #### [facility] [address] [place] [address] CHEM 7 Collected: 04/01/2018 Status: F Source: [facility] 3:08 [facility] REPOSITORY TYPE CODE TESTS RESULT OUT OF REFERENCE UNITS RANGE LAB BUN 7-22 mg/dL BUN High 26 LAB NA 133-143 mmol/L Sodium 134 LAB K 3.5-5.0 mmol/L High Potassium 5.5 LAB CL 98-108 mmol/L Chloride 103 LAB CO2 22-30 mmol/L Carbon Dioxide 22 LAB GLUC 70-99 mg/dL Glucose High 210 LAB CREA 0.70-1.30 mg/dL High Creatinine 1.48 LAB GAP 7-17 mmol/L Anion Gap 15 LAB BC BUN/CREA Ratio 18 LAB OSMC 278-305 mOsm/kg Osmolality 296 (Calc) LAB GFR >60 mL/min/1.73 Low sqM Est GFR,non 47 [place] LAB GFRA >60 mL/min/1.73 Low sqM Est GFR, 57 Performed By: #### PTPTT, HFP, CHM7, CA, URICB, IPB, MGO, LDO, CBCDFC #### [facility] [address] [place] [address] [facility] [address] [place] [address] CALCIUM Collected: 04/01/2018 Status: F Source: [facility] 3:08 AM [facility] REPOSITORY TYPE CODE TESTS RESULT OUT OF REFERENCE UNITS RANGE LAB CA 8.6-10.5 mg/dL Low Calcium 7.9 Performed By: #### PTPTT, HFP, CHM7, CA, URICB, IPB, MGO, LDO, CBCDFC #### [facility] [address] [place] [address] [address] [place] [address] URIC ACID Collected: 04/01/2018 Status: F Source: [facility] 3:08 AM [facility] REPOSITORY TYPE CODE TESTS RESULT OUT OF RANGE REFERENCE UNITS LAB URIC 3.5-7.0 mg/dL Uric Acid 5.6 Performed By: #### PTPTT, HFP, CHM7, CA, URICB, IPB, MGO, LDO, CBCDFC #### [facility] [address] [place] [address] [address] [place] [address] INORGANIC PHOSPHATE Collected: 04/01/2018 Status: F Source: [facility] 3:08 AM [facility] REPOSITORY TYPE CODE TESTS RESULT OUT OF REFERENCE UNITS RANGE LAB IP 2.2-4.6 mg/dL Inorg Phosphate 3.5 Performed By: #### PTPTT, HFP, CHM7, CA, URICB, IPB, MGO, LDO, CBCDFC #### [facility] [address] [place] [address] [place] [address] [address] [place] [address] MAGNESIUM Collected: 04/01/2018 Status: F Source: [facility] 3:08 AM [facility] REPOSITORY TYPE CODE TESTS RESULT OUT OF REFERENCE UNITS RANGE LAB MG 1.6-2.6 mg/dL High Magnesium 2.7 Performed By: #### PTPTT, HFP, CHM7, CA, URICB, IPB, MGO, LDO, CBCDFC #### [facility] [address] [place] [address] [facility] [address] [place], [place] [address] LD TOTAL Collected: 04/01/2018 Status: F Source: [facility] 3:08 AM [facility] REPOSITORY TYPE CODE TESTS RESULT OUT OF RANGE REFERENCE UNITS LAB LD 100-190 U/L High LD Total 5572 Performed By: #### PTPTT, HFP, CHM7, CA, URICB, IPB, MGO, LDO, CBCDFC #### [facility] [address] [place] [address] [facility] [address] [place], [place] [address] CBC,PLATELET,DIFFERENTIAL - CCL Collected: Status: F Source: [facility] 04/01/2018 3:08 AM [facility] REPOSITORY TYPE CODE TESTS RESULT OUT OF REFERENCE UNITS RANGE LAB WBC 4.23-9.07 K/uL WBC Count 19.86 High LAB RBC 4.63-6.08 M/uL RBC Count 2.43 Low LAB HGB 13.7-17.5 g/dL Hemoglobin 7.2 Low LAB HCT 40.1-51.0 % Hematocrit 22.0 Low LAB MCV 79.0-92.2 fL Mean Cell 90.5 Volume LAB MCH 25.7-32.2 pg Mean Cell 29.6 Hgb LAB MCHC 32.3-36.5 g/dL Mean Cell 32.7 Hgb Conc LAB RDW 11.6-14.4 % RBC 20.7 High Distribution LAB PLT 163-337 K/uL Platelet 46 Low Count LAB MPV 9.4-12.4 fL Mean 9.6 Platelet Volume LAB NRBC 0.0-0.2 /100 WBC NUCLEATED 0.3 High RBC LAB DTYPE Manual DIFFERENTIAL TYPE Differential LAB SEGS % NEUTROPHIL 21.6 SEGMENTED LAB LYM % LYMPHOCYTE 14.7 % LAB MON % MONOCYTE % 4.3 LAB EOS % EOSINOPHIL 1.7 % LAB BASO % BASOPHIL % 0.9 LAB BAND % BAND 2.6 NEUTROPHIL % LAB LPHOMA 0 % LYMPHOMA 54.2 High CELLS LAB SBANS 1.78-5.38 K/uL SEGS + 4.81 Bands,Absolute LAB ALYM 1.32-3.57 K/uL Abs Lymph 2.92 LAB AMONO 0.30-0.82 K/uL Abs Victoria 0.85 High LAB AEOS <0.55 K/uL Abs Eos 0.34 LAB ABASO <0.09 K/uL Abs Baso 0.18 High LAB ALYOMA 0 K/uL Abs 10.76 High Lymphoma LAB OVALO OVALOCYTES Present LAB TARGET T[employer] Present CELLS LAB SCHIS 0 1+ High SCHISTOCYTES LAB PLTEST PLATELET Automated ESTIMATE platelet count confirmed by manual slide review. Performed By: #### PTPTT, HFP, CHM7, CA, URICB, IPB, MGO, LDO, CBCDFC #### [facility] [address] [place] [address] FERRITIN Collected: 04/01/2018 Status: F Source: [facility] 3:08 AM [facility] REPOSITORY TYPE CODE TESTS RESULT OUT OF RANGE REFERENCE UNITS LAB FERI 22-322 ng/mL High *Ferritin 5726 Performed By: #### FERIB #### [facility] [address] [place] [address] MRI BRAIN WITH AND Observed: 03/31/2018 Status: F Source: [facility] WITHOUT CONTRAST 7:29 PM [facility] REPOSITORY EXAM: MRI BRAIN WITH AND WITHOUT CONTRAST, 03/30/2018 16:35 PM CLINICAL INDICATIONS: Newly diagnosed MCL. Recurrent headache with associated neurological symptoms. Age: 72 years Gender: Male COMPARISON: No prior studies available for comparison. TECHNIQUE: A series of multisequence, multiplanar images of the brain are obtained both before and after intravenous administration of gadolinium-based contrast using standard protocol. Type: gadoterate Meglumine (DOTAREM) 5 MMOL/10ML injection 3-60 mL Dose: 15 mL FINDINGS: Intracranial: Scattered foci of T2 prolongation in the periventricular and deep white matter are nonspecific but compatible with chronic microvascular changes. Small remote lacunar infarcts in the bilateral basal ganglia. No evidence of edema, mass effect, or mass lesion. A few punctate foci of magnetic susceptibility demonstrate no associated edema or mass effect and are compatible with remote microhemorrhages and/or small cavernomas. No diffusion restriction or other evidence of acute infarct is identified. Mild diffuse dural thickening and enhancement along the bilateral cerebral convexities is nonspecific. No additional abnormal enhancement. Sellar and parasellar structures are unremarkable. No abnormal epidural or subdural fluid collection. No significant ventriculomegaly. Skull and Extracranial: Minimal mucosal thickening is present in several paranasal sinuses. Moderate opacification of the bilateral mastoid air cells. The skull and extracranial structures are otherwise unremarkable. IMPRESSION: No acute infarct or mass effect. Mild diffuse dural thickening and enhancement along the bilateral cerebral convexities is nonspecific. This can be seen in the setting of intracranial hypotension. Various granulomatous or other inflammatory pachymeningeal processes or diffuse neoplastic involvement of the dura could demonstrate a similar appearance. Clinical correlation is recommended. ELET COUNT Collected: 03/31/2018 Status: F Source: [facility] 6:42 PM [facility] REPOSITORY TYPE CODE TESTS RESULT OUT OF REFERENCE UNITS RANGE LAB PLT 163-337 K/uL Low Platelet Count 52 LAB MPV 9.4-12.4 fL Mean Platelet 11.6 Volume Performed By: #### PLAT #### [facility] [address] [place] [address] SURGICAL PATHOLOGY Observed: 03/31/2018 Status: F Source: [facility] 5:02 PM [facility] REPOSITORY Surgical Pathology Report Patient Name: LEXI DICKINSON [facility]. Rec #: [id number] Submitting Physician: JESSE FOFANA --- Clinical History --- NHL. ---Final Pathologic Diagnosis--- A. Bone marrow, left posterior iliac crest, biopsy, touch preparation and peripheral blood smear: - Extensively involved by mantle cell lymphoma representing 90% of marrow cellularity; see comment. - Hypercellular bone marrow (>90%) with minimal trilineage hematopoiesis. - No ring sideroblasts. - Leukocytosis, anemia, thrombocytopenia with circulating lymphoma cells. 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 The evaluation for HLH is limited due to lack of aspirate smear. No definitive hemophagocytic cells are identified on the touch preparation. Immunohistochemical stains for CD3, PAX-5, BCL1, and SOX11 performed on the core biopsy demonstrate that the bone marrow is extensively involved by malignant B-cells diffusely positive for PAX-5, BCL1 and SOX11. CD3 highlights background T-cells. Clinical correlation is recommended. [email or web address]:04/06/2018 Electronically Signed By Susie Vickers MD, PhD 04/06/2018 11:23:10 Professional Interpretation performed at location: [address] [place] [address] ---MICROSCOPIC:--- BONE MARROW REPORT The following specimens were interpreted to arrive at the above diagnosis: Peripheral blood smear, bone marrow aspirate, decalcified trephine biopsy, and iron stain. CBC data and smear review (200 cells): WBC: 23.33 x K/uL; Hgb: 8.4 g/dL; Hct: 25.7%; MCV: 92.1 fl; RDW: 20.6%; Plt: 28 K/uL Manual differential: Myelocytes 2%, metamyelocytes 1%, neutrophils 30%, lymphocytes 55%, monocytes 4%, eosinophils 7%, basophils 1%, nRBC's 4%. Blood smear findings: Review of the blood smear shows leukocytosis with increased lymphocytes. Circulating lymphoma cells are present and small to medium size with scant cytoplasm and irregular nuclei. There is a normocytic anemia with anisopoikilocytosis including ovalocytes, pencil cells, tear-drop cells and polychromasia. Many apoptotic cells are seen. Circulating nucleated red blood cells are present. Platelets are decreased in number with unremarkable morphology. Touch preparation quality: Spicules are absent, and the stain is of good quality. Bone marrow touch preparation differential (500 cells): Blasts: 0% Promyelocytes: 0% Myelocytes: 0% Metamyelocytes: 0% Bands/neutrophils: 2% Lymphocytes: 94% Monocytes: 0% Eosinophils: 1% Basophils: 0% Erythroid: 3% Plasma cells: 0% M:E Ratio: The myeloid to erythroid ratio is not applicable due to large population of lymphoid cells. Erythropoiesis: Decreased erythropoiesis with rare nuclear blebbing. Granulopoiesis: Decreased granulopoiesis without dysplasia. Megakaryocytes: Megakaryocytes are present in markedly decreased numbers with unremarkable morphology. Lymphocytes/plasma cells: The lymphocytes are increased in numbers. The lymphocytes are small to medium with mature chromatin and scant cytoplasm. Other: Rare histiocytes are seen; however definitive hemophagocytosis is not seen. Iron stain: Iron staining cannot be evaluated due to lack of spicules. No ring sideroblasts are seen. The iron control shows appropriate reactivity. Biopsy findings: The bone marrow shows a cellularity of >90%. There is a diffuse lymphoid infiltrate comprising a majority of the marrow elements (90%). The lymphocytes are small to medium in size with scant cytoplasm and mature chromatin. Apoptotic bodes are abundant. Trilineage hematopoiesis is minimal. Immunohistochemical stains were performed in addition to flow cytometry in specimen A block A1 to further characterize the lymphoid cells in the context of cell morphology and tissue architecture, since discrepancy between flow cytometric analysis and morphology can occur due to sampling bias, preferential loss of targeted cells, or hemodilution. All controls show appropriate reactivity. All immunohistochemistry, in situ hybridization, and histochemical tests were developed by and are performed at the [facility], [address] [place] [address]. All tests reported here, except those addressing HER2 overexpression as a predictive marker, have not been cleared or approved by the FDA. The laboratory is regulated under CLIA as qualified to perform high-complexity testing. The tests are used for clinical purposes. They should not be regarded as investigational or for research. Flow cytometric analysis (marrow aspirate): Not performed on bone marrow aspirate. Cytogenetics/FISH: Performed and resulted in a separate report ([id number]). The above report complies, in slightly modified form, with the guidelines of the [employer] for the reporting of cancer specimens. ---SPECIMEN(S) RECEIVED:--- SBX A: Bone marrow, BX ---GROSS DESCRIPTION:--- The specimen is received in one properly labeled container with the patient's name and accession number. A. The specimen is designated BM BX L and consists of one firm portion of clark-white tissue which measures 1.0 cm in length x 0.2 cm in average diameter. TE 1 Note: This cassette will be ready after decalcification. Lab Use Only: JobID [id number] Gross description by: Edda Hobson Performed By: #### SURGP #### [facility] [address] [place] [address] [facility] [address] [place] [id number] BM IMMUNOPHENOTYPING Collected: Status: X Source: [facility] 03/31/2018 3:46 PM [facility] REPOSITORY TYPE CODE TESTS RESULT OUT OF REFERENCE UNITS RANGE LAB BMIPP BM Immunophenotyping This result has been cancelled. Performed By: #### BMIPP #### [facility] (DEFAULT) [address] [place] [address] #### P3J #### [place] [facility], [facility] [address] [place] [address] PACKAGE 3 Collected: 03/31/2018 Status: F Source: [facility] 3:46 PM [facility] REPOSITORY TYPE CODE TESTS RESULT OUT OF REFERENCE UNITS RANGE LAB BMBXJ BM Biopsy Doctor to - CHRI interpret test LAB BMFEJ BM Iron Doctor to Stain interpret test Performed By: #### BMIPP #### [facility] (DEFAULT) [address] [place] [address] #### P3J #### [place], [facility] [address] [place] [address] CALCIUM Collected: 03/31/2018 Status: F Source: [facility] 3:46 PM [facility] REPOSITORY TYPE CODE TESTS RESULT OUT OF REFERENCE UNITS RANGE LAB CA 8.6-10.5 mg/dL Low Calcium 8.1 Performed By: #### CA #### [facility] [address] [place], [place] [address] [facility] [address] [place] [address] CYTOGENETICS Observed: 03/31/2018 Status: F Source: [facility] 3:46 PM [facility] REPOSITORY Cytogenetics Report Patient Name: LEXI DICKINSON [facility]. Rec #: [id number] Submitting Physician: JESSE FOFANA Clinical History Mantle Cell Lymphoma SPECIMEN(S) RECEIVED: A: Bone Marrow Bx KARYOTYPE 46,XY,loan(3)t(3;8)(p25;q22),ins(4;3)(q31;q12q27),+7,-8,add(8)(p23),loan(9)t( 8;9)(q24.2;p13),t(11;14)(q13.3q32.3),loan(13;14)(q10;q10)c,i(17)(q10),+mar[1 6,one is 4n,one w/nonclonal abnormalities]/46,sl,loan(8)t(8;18)(q22;q21),+r,-mar[4].wing loan(3)t(3;8)(MYC+),loan(9)t(8;9)(MYC+),loan(18)t(8;18)(MYC++) INTERPRETATION This is a bone biopsy from a patient with a history of mantle cell lymphoma and a complex karyotype. The sample was stimulated with oligonucleotides for 72 hours. Cytogenetic analysis of the sample showed the complex karyotype described above. The abnormalities present in this sample are similar to those seen in the previous samples obtained from this patient. FISH analysis on banded metaphases with the MYC (8q24) break- apart probe ([employer]) showed one intact MYC signal on each of the derivative chromosomes 3, 9 and 18 indicating MYC was not rearranged as a result of the unbalanced translocations. Due to better morphology and the additional FISH analyses on the current sample, the abnormalities were more defined and better described. The presence of the same abnormalities in the current sample indicates continuing disease in this patient. 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 FISH analyses also showed gain of the chromosome 9 centromere; this was not apparent, however may be present, on unknown material in the banded metaphase analysis. Due to the limitations of this analysis, these results do not rule out the presence of subtle chromosomal abnormalities or additional abnormalities that could exist in a low proportion of cells. [email or web address]:04/26/2018 Electronically Signed By Nica George, PhD, [facility] 04/26/2018 11:25:15 LABORATORY DATA Band Level: 425 Process: 1 Mitogen: CpG Duration: 72 hrs Banding: GTG Media: RPMI 30min colcemid Number of cells: 20 Chromosome Count Analysis <=42 1 44 1 45 2 46 13 47 2 92 1 Total 20 Total number of cells karyotyped: 20 FISH REPORT Cytogenetics FISH Report Date Ordered: 03/31/2018 Status: Signed Out Date Reported: 04/17/2018 Laboratory Data Process: 1 Mitogen: CpG Duration: 72hrs Banding: FISH Media: RPMI 30min colcemid Number of interphases analyzed: BCL6 223 SEC63 200 MYC 223 CDKN2A 209 JAX 217 D12Z3 201 [id number] 201 TP53 217 IGH-CCND1 135 IGH-BCL2 262 Probe/Control Range Patient/Interpretation 3q27(BCL6(ba))/0-2.3% 89.7%/POSITIVE FOR REARRANGEMENT 6q21(SEC63);1signal/0-3.0% 0%/negative 8q24(MYC);3signals/0-1.4% 93.7%/POSITIVE FOR 3-5 SIGNALS 9p21(CDKN2A);1signal/0-5.4% 92.8%/POSITIVE 11q22.3(JAX);1signal/0-3.7% 0%/negative 12cen(D12Z3);3signals/0-0.6% 0%/negative 13q14.3(L81P407);1signal/0-6.0% 0.5%/negative 17p13.1(TP53);1signal/0-6.4% 92.2%/POSITIVE 14q32.3-11q13(IGH-CCND1)/0-0.6% 88.9%/POSITIVE 9cen(D9Z4);3signals/0-0.6% 52.6%/POSITIVE FOR 3 SIGNALS 14q32.3-18q21(IGH-BCL2)/0-0.6% 76.3%/fusion negative- POSITIVE FOR 3 IGH SIGNALS Karyotype/Interpretation nuc wing(BCL6x2)(5'BCL6 sep 3'BCL6x1)[200/223],(MYCx3)[7]/(MYCx4)[116/223]/(BCL6x5)[86/223],(CDKN2A x1,D9Z4x3)[110/209]/(OXFO5Lg6,D9Z4x2)[84/209],(ATMx2,TP53x1)[200/217],(SEC6 3,D12Z3,K88L452)x2[200],(IGH,CCND1)x3(IGH con IOSH3m8)[120/235],(IGHx3,BCL2x2)[200/262] 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 The sample was stimulated with oligonucleotides for 72 hours. FISH analyses with probes for the chromosome 12 centromere, BCL6 (3q27), MYC (8q24), CDKN2A (9p21), D9Z4 (9cen), JAX (11q22.3), [id number] (13q14.3), TP53 (17p13.1) ([employer]) and SEC63 (6q21) ([employer]) were done to determine if there were aneuploidy for any of these loci. Results of the analyses showed normal signal numbers for SEC63, JAX, A68S171 and the chromosome 12 centromere within the limits of these analyses. However, 89.7% of the cells analyzed showed rearrangement of the BCL6 gene, 93.7% of the cells had three to five intact MYC signals, and 92.8% of the cells had loss of one CDKN2A signal and 52.6% of the cells analyzed had three chromosome 9 centromere signals. In addition, 92.2% of the cells analyzed had loss of one TP53 signal indicating monosomy for this gene. FISH analysis with the dual fusion IGH-CCND1 probes (14q32.3-11q13) ([employer]) was 88.9% positive for the dual fusion signal pattern. Additionally, FISH analysis with the dual fusion IGH-BCL2 (14q32.3-18q21) probes ([employer]) was negative for fusion products and showed a normal signal number for BCL2 within the limits of the analysis; however, 76.3% of the cells analyzed had three IGH signals consistent with the t(11;14). These results indicate this sample is positive for a t(11;14), BCL6 rearrangement, gains of MYC and the chromosome 9 centromere, and deletions of 9p and the TP53 gene. These results are consistent with those seen in the banded metaphase analyses on previous samples obtained from this patient. METHOD: Fluorescence in situ hybridization (FISH) was performed by applying DNA probes (analyte specific reagents, ASRs) developed by [email or web address] (and/or [employer] or [employer]) to interphase (non-dividing) nuclei isolated from peripheral blood/bone marrow. These are specific DNA probes that detect a number of commonly observed aberrations in hematologic malignancies. This test was developed and its performance characteristics determined by the Cytogenetics Lab at [facility]. It has not been cleared or approved by the FDA. The laboratory is regulated under CLIA as qualified to perform high-complexity testing. This test is used for clinical purposes. It should not be regarded as investigational or for research. Pursuant to the requirements of CLIA'88, this laboratory has established and verified the test's accuracy and precision. Nica George, PhD, ABMG, FACMG Performed By: #### CYTOG #### [place] [address] Observed: 03/31/2018 Status: F Source: [facility] TRANSFUSE PLATELETS 2:11 PM [facility] REPOSITORY CROSSMATCH EXPIRATION: 04/01/2018 UNIT NUMBER: [id number] BLOOD COMPONENT TYPE: Platelet Pheresis,Leukoreduced,[id number] STATUS OF UNIT: Issued, Final TRANSFUSION STATUS: OK TO TRANSFUSE UNIT NUMBER: [id number] BLOOD COMPONENT TYPE: Platelet Pheresis,Leukoreduced,[id number] STATUS OF UNIT: Issued, Final TRANSFUSION STATUS: OK TO TRANSFUSE Performed By: #### TPLT #### [place] [address] Observed: 03/31/2018 Status: F Source: [facility] DIRECT ANTIGLOBULIN 12:20 PM [facility] REPOSITORY JLUIS, POLYSPEC: NEGATIVE Performed By: #### DATO #### [place] [address] RETICULOCYTES Collected: 03/31/2018 Status: F Source: [facility] 11:48 AM [facility] REPOSITORY TYPE CODE TESTS RESULT OUT OF REFERENCE UNITS RANGE LAB OBS 0.51-1.81 % 0.90 *Retic Count LAB JOSE 0.026-0.095 M/uL Retic Absolute RETIAB <0.05 Result below linearity Performed By: #### RETIC, HAP #### [facility] [address] [place] [address] [address] [place] [address] HAPTOGLOBIN Collected: 03/31/2018 Status: F Source: [facility] 11:48 AM [facility] REPOSITORY TYPE CODE TESTS RESULT OUT OF REFERENCE UNITS RANGE LAB HAP 44-215 mg/dL Haptoglobin 122 Performed By: #### RETIC, HAP #### [facility] [address] [place] [address] [address] PT*PTT Collected: 03/31/2018 Status: F Source: [facility] 9:23 AM [facility] REPOSITORY TYPE CODE TESTS RESULT OUT OF RANGE REFERENCE UNITS LAB PT 11.9-14.2 sec High PT 14.5 LAB INR 0.9-1.1 INR 1.1 LAB PTT 24.0-34.3 sec PTT 27.0 Performed By: #### PTPTT, HSDDI #### [facility] [address] [place] [address] 410 [place] [address] D-DIMER, HIGH Collected: 03/31/2018 Status: F Source: [facility] SENSITIVITY 9:23 AM [facility] REPOSITORY TYPE CODE TESTS RESULT OUT OF REFERENCE UNITS RANGE LAB HSDDI <0.50 mcg/mL FEU D-Dimer, High High Sensitivity 2.33 Result Comment: The D-Dimer assay is intended for use in conjuction with a clinical pretest probability (PTP) assessment model to exclude pulmonary embolism (PE) and as an aid in the diagnosis of Deep Vein Thrombosis ( DVT) in outpatients suspected of PE or DVT. For the assay in use at [facility] ([facility]), a cutoff of <0.50 mcg/mL has a Negative Predictive Value of 99.7% for exclusion of DVT in low and moderate PTP patients. Performed By: #### PTPTT, HSDDI #### [facility] [address] [place] [address] [address] [place] [address] *POC GLUCOSE BATTERY Collected: 03/31/2018 Status: F Source: [facility] 7:42 AM [facility] REPOSITORY TYPE CODE TESTS RESULT OUT OF REFERENCE UNITS RANGE LAB GLUP 70-99 mg/dL Glucose (poc 96 device) Result Comment: No BRAVE per RN: PATIENT TYPE LAB PCSTYP *POC Capillary SAMPLE TYPE Blood *POC GLUCOSE BATTERY Collected: 03/31/2018 Status: F Source: [facility] 7:01 AM [facility] REPOSITORY TYPE CODE TESTS RESULT OUT OF REFERENCE UNITS RANGE LAB GLUP 70-99 mg/dL Glucose (poc 79 device) Result Comment: No BRAVE per RN: PATIENT TYPE LAB PCSTYP *POC Capillary SAMPLE TYPE Blood *POC GLUCOSE BATTERY Collected: 03/31/2018 Status: F Source: [facility] 6:41 AM [facility] REPOSITORY TYPE CODE TESTS RESULT OUT OF REFERENCE UNITS RANGE LAB GLUP 70-99 mg/dL Low Glucose (poc 63 device) Result Comment: No BRAVE per RN: PATIENT TYPE LAB PCSTYP *POC Capillary SAMPLE TYPE Blood HEPATIC FUNCTION Collected: 03/31/2018 Status: F Source: [facility] PANEL 3:32 AM [facility] REPOSITORY TYPE CODE TESTS RESULT OUT OF REFERENCE UNITS RANGE LAB ALB 3.5-5.0 g/dL Albumin 4.0 LAB BILD <0.3 mg/dL Bilirubin High Direct 3.4 LAB BILT <1.5 mg/dL Bilirubin High Total 6.5 LAB ALP 32-126 U/L Alkaline High Phosphatase 345 LAB ALT 10-52 U/L ALT High 67 LAB AST 14-40 U/L AST High 131 LAB TP 6.4-8.3 g/dL Total Protein 6.8 Performed By: #### HFP, CHM7, CA, URICB, IPB, MGO, TRIG, FIB, LDO, CBCDFC #### [facility] [address] [place] [address] [address] [place] [address] #### CMVPCR #### [place] [address] #### YIL2 #### Reference lab information reported with result CHEM 7 Collected: 03/31/2018 Status: F Source: [facility] 3:32 AM [facility] REPOSITORY TYPE CODE TESTS RESULT OUT OF REFERENCE UNITS RANGE LAB BUN 7-22 mg/dL BUN High 23 LAB NA 133-143 mmol/L Sodium 137 LAB K 3.5-5.0 mmol/L Potassium 4.1 LAB CL 98-108 mmol/L Chloride 102 LAB CO2 22-30 mmol/L Carbon Dioxide 23 LAB GLUC 70-99 mg/dL Low Glucose 64 LAB CREA 0.70-1.30 mg/dL High Creatinine 1.58 LAB GAP 7-17 mmol/L Anion Gap 16 LAB BC BUN/CREA Ratio 15 LAB OSMC 278-305 mOsm/kg Osmolality 289 (Calc) LAB GFR >60 mL/min/1.73 Low sqM Est GFR,non 43 [place] Ze[place]ander LAB GFRA >60 mL/min/1.73 Low sqM Est GFR, 52 Performed By: #### HFP, CHM7, CA, URICB, IPB, MGO, TRIG, FIB, LDO, CBCDFC #### [facility] [address] 410 [place] [address] #### CMVPCR #### [place] [address] #### YIL2 #### Reference lab information reported with result CALCIUM Collected: 03/31/2018 Status: F Source: [facility] 3:32 AM [facility] REPOSITORY TYPE CODE TESTS RESULT OUT OF REFERENCE UNITS RANGE LAB CA 8.6-10.5 mg/dL Calcium 8.6 Performed By: #### HFP, CHM7, CA, URICB, IPB, MGO, TRIG, FIB, LDO, CBCDFC #### [facility] [address] [place] [address] #### CMVPCR #### [place] [address] #### YIL2 #### Reference lab information reported with result URIC ACID Collected: 03/31/2018 Status: F Source: [facility] 3:32 AM [facility] REPOSITORY TYPE CODE TESTS RESULT OUT OF RANGE REFERENCE UNITS LAB URIC 3.5-7.0 mg/dL Uric Acid 5.4 Performed By: #### HFP, CHM7, CA, URICB, IPB, MGO, TRIG, FIB, LDO, CBCDFC #### [facility] [id number] [place] [address] [address] [place] [address] #### CMVPCR #### [place] [address] #### YIL2 #### Reference lab information reported with result INORGANIC PHOSPHATE Collected: 03/31/2018 Status: F Source: [facility] 3:32 AM [facility] REPOSITORY TYPE CODE TESTS RESULT OUT OF REFERENCE UNITS RANGE LAB IP 2.2-4.6 mg/dL Inorg Phosphate 2.5 Performed By: #### HFP, CHM7, CA, URICB, IPB, MGO, TRIG, FIB, LDO, CBCDFC #### [place] [address] #### CMVPCR #### [address] [address] #### YIL2 #### Reference lab information reported with result MAGNESIUM Collected: 03/31/2018 Status: F Source: [facility] 3:32 [facility] REPOSITORY TYPE CODE TESTS RESULT OUT OF REFERENCE UNITS RANGE LAB MG 1.6-2.6 mg/dL Magnesium 2.4 Performed By: #### HFP, CHM7, CA, URICB, IPB, MGO, TRIG, FIB, LDO, CBCDFC #### [facility] [id number] [place] [address] #### CMVPCR #### [address] [address] #### YIL2 #### Reference lab information reported with result TRIGLYCERIDES Collected: 03/31/2018 Status: F Source: [facility] 3:32 AM [facility] REPOSITORY TYPE CODE TESTS RESULT OUT OF REFERENCE UNITS RANGE LAB TRIG <150 mg/dL TRIGLYCERIDES High 541 Performed By: #### HFP, CHM7, CA, URICB, IPB, MGO, TRIG, FIB, LDO, CBCDFC #### [facility] [id number] [place] [address] [address] #### CMVPCR #### [address] [address] #### YIL2 #### Reference lab information reported with result FIBRINOGEN-CLOTTABLE Collected: Status: F Source: [facility] 03/31/2018 3:32 AM [facility] REPOSITORY TYPE CODE TESTS RESULT OUT OF RANGE REFERENCE UNITS LAB FIB 220-410 mg/dL High 507 Fibrinogen-C lottable Performed By: #### HFP, CHM7, CA, URICB, IPB, MGO, TRIG, FIB, LDO, CBCDFC #### [facility] [id number] [place] [address] [address] #### CMVPCR #### [address] [address] #### YIL2 #### Reference lab information reported with result LD TOTAL Collected: 03/31/2018 Status: F Source: [facility] 3:32 AM [facility] REPOSITORY TYPE CODE TESTS RESULT OUT OF RANGE REFERENCE UNITS LAB LD 100-190 U/L High LD Total 5629 Performed By: #### HFP, CHM7, CA, URICB, IPB, MGO, TRIG, FIB, LDO, CBCDFC #### [facility] [id number] [place] [address] [address] #### CMVPCR #### [address] [address] #### YIL2 #### Reference lab information reported with result CBC,PLATELET,DIFFERENTIAL - CCL Collected: Status: F Source: [facility] 03/31/2018 3:32 AM [facility] REPOSITORY TYPE CODE TESTS RESULT OUT OF REFERENCE UNITS RANGE LAB WBC 4.23-9.07 K/uL WBC Count 23.33 High LAB RBC 4.63-6.08 M/uL RBC Count 2.79 Low LAB HGB 13.7-17.5 g/dL Hemoglobin 8.4 Low LAB HCT 40.1-51.0 % Hematocrit 25.7 Low LAB MCV 79.0-92.2 fL Mean Cell 92.1 Volume LAB MCH 25.7-32.2 pg Mean Cell 30.1 Hgb LAB MCHC 32.3-36.5 g/dL Mean Cell 32.7 Hgb Conc LAB RDW 11.6-14.4 % RBC 20.6 High Distribution LAB PLT 163-337 K/uL Platelet 28 Low alert Count LAB MPV 9.4-12.4 fL Mean NOT Platelet Volume MEASURED LAB NRBC 0.0-0.2 /100 WBC NUCLEATED 0.8 High RBC LAB DTYPE Manual DIFFERENTIAL TYPE Differential LAB SEGS % NEUTROPHIL 22.5 SEGMENTED Result Comment: Toxic granulation present LAB LYM % LYMPHOCYTE 19.8 % LAB MON % MONOCYTE % 0.9 LAB EOS % EOSINOPHIL 6.3 % LAB BASO % BASOPHIL % 0.0 LAB BAND % BAND 2.7 NEUTROPHIL % LAB LPHOMA 0 % LYMPHOMA 47.8 High CELLS LAB SBANS 1.78-5.3 K/uL 8 SEGS + 5.88 High Bands,Absolute LAB ALYM 1.32-3.5 K/uL 7 Abs Lymph 4.62 High LAB AMONO 0.30-0.8 K/uL Low 2 Abs Victoria 0.21 LAB AEOS <0.55 K/uL Abs Eos 1.47 High LAB ABASO <0.09 K/uL Abs Baso 0.00 LAB ALYOMA 0 K/uL Abs 11.15 High Lymphoma LAB PLTEST PLATELET ESTIMATE Automated platelet count confirmed by manual slide review. Performed By: #### HFP, CHM7, CA, URICB, IPB, MGO, TRIG, FIB, LDO, CBCDFC #### [facility] [address] [place] [address] [facility] [address] [place], [place] [address] #### CMVPCR #### [place] [address] #### YIL2 #### Reference lab information reported with result QUANTITATIVE CMV BY PCR Collected: 03/31/2018 Status: F Source: [facility] - E 3:32 AM [facility] REPOSITORY TYPE CODE TESTS RESULT OUT OF REFERENCE UNITS RANGE LAB CMV1IU <50 IU/mL CMV by PCR, <50 IU/mL, plasma Result Comment: This test was performed using a real time CMV PCR assay. The dynamic range for this assay is 50-156,000,000 IU/mL. Results should be interpreted in conjunction with other clinical and laboratory findings. Performed By: #### HFP, CHM7, CA, URICB, IPB, MGO, TRIG, FIB, LDO, CBCDFC #### [facility] [place] [address] #### CMVPCR #### [place] [address] #### YIL2 #### Reference lab information reported with result INTERLEUKIN 2 RECEPTOR Collected: 03/31/2018 Status: F Source: [facility] ([place] 2R) 3:32 AM [facility] REPOSITORY TYPE CODE TESTS RESULT OUT OF REFERENCE UNITS RANGE LAB IL2R <=1033 pg/mL Interleukin High 2 Receptor ([place] [id number]) Result Comment: (NOTE) Diluted and confirmed. INTERPRETIVE INFORMATION: Cytokines Results are used to understand the pathophysiology of immune, infectious, or inflammatory disorders, or may be used for research purposes. Test developed and characteristics determined by [facility]. See Compliance Statement B: [employer]/ Performed by [facility], [address] [place] [id number] [email or web address], Deandre Aguiar MD - Lab. Director Test Performed by: [facility] [address] [place] [id number] Performed By: #### HFP, CHM7, CA, URICB, IPB, MGO, TRIG, FIB, LDO, CBCDFC #### [facility] [place] [address] #### CMVPCR #### [address], [place] [address] #### YIL2 #### Reference lab information reported with result FERRITIN Collected: 03/31/2018 Status: F Source: [facility] 3:32 AM [facility] REPOSITORY TYPE CODE TESTS RESULT OUT OF RANGE REFERENCE UNITS LAB FERI 22-322 ng/mL High *Ferritin 3936 Performed By: #### FERIB #### [facility] [address] [place] [address] CHEM 7 Collected: 03/30/2018 Status: F Source: [facility] 5:15 PM [facility] REPOSITORY TYPE CODE TESTS RESULT OUT OF REFERENCE UNITS RANGE LAB BUN 7-22 mg/dL BUN High 25 LAB NA 133-143 mmol/L Sodium 137 LAB K 3.5-5.0 mmol/L Potassium 4.3 LAB CL 98-108 mmol/L Chloride 102 LAB CO2 22-30 mmol/L Low Carbon Dioxide 21 LAB GLUC 70-99 mg/dL Glucose High 103 LAB CREA 0.70-1.30 mg/dL High Creatinine 1.52 LAB GAP 7-17 mmol/L Anion High Gap 18 LAB BC BUN/CREA Ratio 16 LAB OSMC 278-305 mOsm/kg Osmolality 292 (Calc) LAB GFR >60 mL/min/1.73 Low sqM Est GFR,non 45 [place]ander LAB GFRA >60 mL/min/1.73 Low sqM Est GFR, 55 Performed By: #### CHM7, CA, URICB, IPB, LDO, HEP1B #### [facility] [address] [address] CALCIUM Collected: 03/30/2018 Status: F Source: [facility] 5:15 PM [facility] REPOSITORY TYPE CODE TESTS RESULT OUT OF REFERENCE UNITS RANGE LAB CA 8.6-10.5 mg/dL Calcium 8.7 Performed By: #### CHM7, CA, URICB, IPB, LDO, HEP1B #### [facility] [id number] [place] [address] [address] URIC ACID Collected: 03/30/2018 Status: F Source: [facility] 5:15 PM [facility] REPOSITORY TYPE CODE TESTS RESULT OUT OF RANGE REFERENCE UNITS LAB URIC 3.5-7.0 mg/dL Uric Acid 5.3 Performed By: #### CHM7, CA, URICB, IPB, LDO, HEP1B #### [facility] [address] [place] [id number] [place] [address] 410 [place] [address] INORGANIC PHOSPHATE Collected: 03/30/2018 Status: F Source: [facility] 5:15 PM [facility] REPOSITORY TYPE CODE TESTS RESULT OUT OF REFERENCE UNITS RANGE LAB IP 2.2-4.6 mg/dL Inorg Phosphate 2.3 Performed By: #### CHM7, CA, URICB, IPB, LDO, HEP1B #### [facility] [address] [place] [address] LD TOTAL Collected: 03/30/2018 Status: F Source: [facility] 5:15 [facility] REPOSITORY TYPE CODE TESTS RESULT OUT OF RANGE REFERENCE UNITS LAB LD 100-190 U/L High LD Total 5385 Performed By: #### CHM7, CA, URICB, IPB, LDO, HEP1B #### [facility] [id number] [place] [address] HEPATITIS ACUTE PANEL Collected: 03/30/2018 Status: F Source: [facility] 5:15 [facility] REPOSITORY TYPE CODE TESTS RESULT OUT OF REFERENCE UNITS RANGE LAB HBSAG Negative Hep B Surface Ag Negative LAB HBCBG Negative Hep B Core Ab,Total Negative (IgG+IgM) LAB HBCBM Negative Hep B Core IgM Ab Negative LAB HAABM Negative Hepatitis A IgM Negative Ab LAB HCAB Negative Hepatitis C Negative Antibody Performed By: #### CHM7, CA, URICB, IPB, LDO, HEP1B #### [facility] [address] [place] [address] 410 [place] [address] URINE SCREEN WITH Collected: 03/30/2018 Status: F Source: [facility] REFLEX TO MICROSCOPIC 5:15 PM [facility] REPOSITORY TYPE CODE TESTS RESULT OUT OF RANGE REFERENCE UNITS LAB 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 Appearance Urine Clear LAB SPGR 1.001-1.035 Specific [place] urine 1.019 LAB UGL Negative mg/dL Glucose Urine Negative LAB UKET Negative Ketones Abnormal Urine Trace LAB UBLD Negative Blood Urine Negative LAB UPH 5.0-7.0 pH Urine 5.5 LAB UPR Negative mg/dL Protein Abnormal Urine 100 LAB UNTR Negative Nitrites Urine Negative LAB ULEU Negative Leukocyte Esterase Negative LAB COLR Yellow Color Abnormal Dark Yellow LAB UURO <2.0 EU/dL Urobilinogen 1.0 urine Performed By: #### UASR, UMICR #### [facility] [address] [place] [address] [address] [place] [address] URINE MICROSCOPIC Collected: 03/30/2018 Status: F Source: [facility] 5:15 PM [facility] REPOSITORY TYPE CODE TESTS RESULT OUT OF REFERENCE UNITS RANGE LAB UWBC 0-5 /HPF WBC Urine 0-5 LAB URBC 0-2 /HPF RBC Urine 0-2 LAB BACT Absent Bacteria Absent LAB UCOM COMMENT URINE Mucus LAB EPIS /HPF Squamous Epithelial 1+ Performed By: #### UASR, UMICR #### [facility] [address] [place] [address] [address] [place] [address] Observed: 03/30/2018 Status: F Source: [facility] BLOOD:ROUTINE I 5:15 PM [facility] REPOSITORY SOURCE: BLOOD, PERIPHERAL: Site not specified RESULT: NO GROWTH DAY 5 OF 5 REPORT STATUS: 04/04/2018 FINAL Performed By: ###Kelsy FOWLER #### [address] [address] Blood Cultures processed at: [facility] Observed: 03/30/2018 Status: F Source: [facility] BLOOD:ROUTINE II 5:15 PM [facility] REPOSITORY SOURCE: BLOOD, PERIPHERAL: Site not specified RESULT: NO GROWTH DAY 5 OF 5 REPORT STATUS: 04/04/2018 FINAL Performed By: #### MALCOLM2 #### [address] [address] Blood Cultures processed at: [facility] NUC PET LYMPHOMA Observed: 03/30/2018 Status: F Source: [facility] 3:42 PM [facility] REPOSITORY EXAM: NUC PET LYMPHOMA, 03/30/2018 15:10 PM CLINICAL INDICATIONS: 72-year-old man with 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 The patient presents with symptoms concerning for lymphomatous progression. The study is requested for restaging. Subsequent treatment strategy. COMPARISON: No prior PET/CT studies are available for comparison. CT DOSE: DLP: 472 mGy x cm kVp: 120 TECHNIQUE: The patient's fasting blood glucose was 73 mg/dl. Approximately 75 minutes following the injection of 12.6 mCi of F-18 FDG, the patient was positioned on the Siemens Biograph mCT TOF< PET/CT-64, Champ imaging unit. A low resolution non-contrast CT was obtained from the top of the head through the proximal thighs for use in attenuation correction and anatomic correlation. PET emission scans of this anatomic region were acquired shortly thereafter. Axial, sagittal, coronal and maximal intensity projection reconstruction images were presented for interpretation. Oral contrast was administered. FINDINGS: Respiratory misregistration artifact is noted and involves the lower thoracic and upper abdominal structures. Lymph nodes: There are FDG avid left supraclavicular, left hilar, juxtacardiac, portacaval, aortocaval, periaortic and mesenteric lymph nodes visualized. The most FDG avid lymph nodes are within the portacaval region demonstrates a maximal SUV of 11.1. This is markedly greater than that of the normal-appearing liver parenchyma. Head/Neck: Normal, intense physiologic uptake is noted in the cerebral cortex finch matter and subcortical nuclei without gross hypermetabolic abnormality. Physiologic FDG uptake is noted in the salivary glands and tonsillar tissue. Chest: Emphysematous changes are noted bilaterally within the upper lobes. There are no hypermetabolic pulmonary parenchymal lesions. There are calcified right hilar lymph nodes visualized. Physiologic FDG uptake is seen in the myocardium. Atherosclerotic vascular calcifications are noted in the coronary arteries. The left ventricular blood pool has an average Hounsfield density of 31 which is suggestive of an underlying anemic state. Abdomen/Pelvis: There is a discrete focus of increased FDG activity along the anterior aspect of the liver which has a maximal SUV of 8.4. The spleen is diffusely mildly FDG avid. Physiologic FDG uptake is seen throughout the bowel. Postsurgical changes consistent with a cholecystectomy are noted. Physiologic FDG excretion is seen in the kidneys, ureters, and urinary bladder. There are no hypermetabolic lesions in the adrenal glands. Musculoskeletal: Degenerative changes of the spine are present. There is diffuse intensely increased FDG uptake throughout the bone marrow spaces of the visualized axial and proximal appendicular skeleton which is nonspecific and may relate to the patient's lymphoma versus recent therapy versus underlying anemic state. This also limits evaluation for subtle hypermetabolic osseous lesions. IMPRESSION: No prior PET/CT study is available for comparison. The PET findings of hypermetabolic lymph nodes in the neck, chest and abdomen are compatible with the patient's known lymphoma. Focal superficial hypermetabolic activity along the anterior aspect of the liver which may represent focal lymphomatous involvement. Mildly hypermetabolic spleen is nonspecific and may relate to lymphomatous involvement versus post treatment change. Intensely hypermetabolic bone marrow throughout the visualized osseous structures is also nonspecific and may relate to lymphomatous involvement versus post treatment change versus underlying anemic state. Qualitative Otero/Deauville criteria score = 5. *POC GLUCOSE BATTERY Collected: 03/30/2018 Status: F Source: [facility] 3:05 PM [facility] REPOSITORY TYPE CODE TESTS RESULT OUT OF REFERENCE UNITS RANGE LAB GLUP 70-99 mg/dL Glucose (poc 89 device) Result Comment: No BRAVE per RN: PATIENT TYPE LAB PCSTYP *POC Capillary SAMPLE TYPE Blood *POC GLUCOSE BATTERY Collected: 03/30/2018 Status: F Source: [facility] 1:25 PM [facility] REPOSITORY TYPE CODE TESTS RESULT OUT OF REFERENCE UNITS RANGE LAB GLUP 70-99 mg/dL Glucose (poc 73 device) Result Comment: No BRAVE per RN: PATIENT TYPE LAB PCSTYP *POC Capillary SAMPLE TYPE Blood *POC GLUCOSE BATTERY Collected: 03/30/2018 Status: F Source: [facility] 12:58 PM [facility] REPOSITORY TYPE CODE TESTS RESULT OUT OF REFERENCE UNITS RANGE LAB GLUP 70-99 mg/dL Glucose (poc 74 device) Result Comment: No BRAVE per RN: PATIENT TYPE LAB PCSTYP *POC Capillary SAMPLE TYPE Blood *POC GLUCOSE BATTERY Collected: 03/30/2018 Status: F Source: [facility] 12:48 PM [facility] REPOSITORY TYPE CODE TESTS RESULT OUT OF REFERENCE UNITS RANGE LAB GLUP 70-99 mg/dL Low Glucose (poc 67 device) Result Comment: No BRAVE per RN: PATIENT TYPE LAB PCSTYP *POC SAMPLE TYPE Venous *POC GLUCOSE BATTERY Collected: 03/30/2018 Status: F Source: [facility] 12:47 PM [facility] REPOSITORY TYPE CODE TESTS RESULT OUT OF REFERENCE UNITS RANGE LAB GLUP 70-99 mg/dL Glucose (poc 75 device) Result Comment: No BRAVE per RN: PATIENT TYPE LAB PCSTYP *POC SAMPLE TYPE Venous CHEM 7 Collected: 03/30/2018 Status: F Source: [facility] 12:22 PM [facility] REPOSITORY TYPE CODE TESTS RESULT OUT OF REFERENCE UNITS RANGE LAB BUN 7-22 mg/dL BUN High 26 LAB NA 133-143 mmol/L Sodium 137 LAB K 3.5-5.0 mmol/L Potassium 4.6 LAB CL 98-108 mmol/L Chloride 104 LAB CO2 22-30 mmol/L Carbon Dioxide 22 LAB GLUC 70-99 mg/dL Glucose 71 LAB CREA 0.70-1.30 mg/dL High Creatinine 1.51 LAB GAP 7-17 mmol/L Anion Gap 16 LAB BC BUN/CREA Ratio 17 LAB [facility] 278-305 mOsm/kg Osmolality 291 (Calc) LAB GFR >60 mL/min/1.73 Low sqM Est GFR,non 46 [place]ander LAB GFRA >60 mL/min/1.73 Low sqM Est GFR, 55 Performed By: #### JETTM7, CA, URICB, IPB, LDO #### [facility] [address] [place] [address] CALCIUM Collected: 03/30/2018 Status: F Source: [facility] 12:22 PM [facility] REPOSITORY TYPE CODE TESTS RESULT OUT OF REFERENCE UNITS RANGE LAB CA 8.6-10.5 mg/dL Calcium 8.6 Performed By: #### CHM7, CA, URICB, IPB, LDO #### [facility] [address] [place] [address] URIC ACID Collected: 03/30/2018 Status: F Source: [facility] 12:22 PM [facility] REPOSITORY TYPE CODE TESTS RESULT OUT OF RANGE REFERENCE UNITS LAB URIC 3.5-7.0 mg/dL Uric Acid 5.6 Performed By: #### CHM7, CA, URICB, IPB, LDO #### [facility] [address] [place] [address] [facility] [address] [place] [address] INORGANIC PHOSPHATE Collected: 03/30/2018 Status: F Source: [facility] 12:22 PM [facility] REPOSITORY TYPE CODE TESTS RESULT OUT OF REFERENCE UNITS RANGE LAB IP 2.2-4.6 mg/dL Inorg Phosphate 3.2 Performed By: #### CHM7, CA, URICB, IPB, LDO #### [facility] [address] [place] [address] [facility] [address] [place] [address] LD TOTAL Collected: 03/30/2018 Status: F Source: [facility] 12:22 PM [facility] REPOSITORY TYPE CODE TESTS RESULT OUT OF RANGE REFERENCE UNITS LAB LD 100-190 U/L High LD Total 5085 Performed By: #### CHM7, CA, URICB, IPB, LDO #### [facility] [address] [place] [id number] [place] [address] [address] [place] [address] US ABDOMEN RUQ/LIVER/GB Observed: 03/30/2018 Status: F Source: [facility] 9:54 AM [facility] REPOSITORY EXAM: US ABDOMEN RUQ/LIVER/GB, 03/30/2018 08:27 AM CLINICAL INDICATIONS: Abnormal LFTs COMPARISON: Compared to prior study dated 02/18/2018 TECHNIQUE: Real-time ultrasound evaluation of the right upper quadrant was performed utilizing a curved array transducer. Duplex scan is performed. Color flow images and spectral waveforms obtained. FINDINGS: Pancreas: The visualized pancreas is sonographically normal in appearance. Liver: The liver parenchyma is homogenous in echotexture. There is no evidence of an intrahepatic mass or biliary ductal dilation. Doppler ultrasound demonstrates hepatopetal flow in the main portal vein. Flow velocity is 39.6 cm/sec which is normal. Gall Bladder: Status post cholecystectomy. The sonographic Linda's sign was reported as negative. The common duct is normal in caliber measuring 3 mm in diameter. Right Kidney: Limited evaluation of the right kidney demonstrates no hydronephrosis. Bipolar length is 10.1 cm. Ascites: There is no ascites in the visualized abdomen. IMPRESSION: No acute sonographic abnormality in the right upper quadrant. Status post cholecystectomy. No biliary ductal dilatation. Collected: 03/30/2018 Status: F Source: [facility] 3:46 AM [facility] REPOSITORY TYPE CODE TESTS RESULT OUT OF RANGE REFERENCE UNITS LAB AST 14-40 U/L High AST 130 Performed By: #### ASTO, CHM7, BILI, CA, URICB, IPB, MGO, LDO, ALB, CBCDFC #### [facility] [address] [address] CHEM 7 Collected: 03/30/2018 Status: F Source: [facility] 3:46 AM [facility] REPOSITORY TYPE CODE TESTS RESULT OUT OF REFERENCE UNITS RANGE LAB BUN 7-22 mg/dL BUN High 27 LAB NA 133-143 mmol/L Sodium 137 LAB K 3.5-5.0 mmol/L Potassium 4.6 LAB CL 98-108 mmol/L Chloride 105 LAB CO2 22-30 mmol/L Low Carbon Dioxide 21 LAB GLUC 70-99 mg/dL Glucose 85 LAB CREA 0.70-1.30 mg/dL High Creatinine 1.54 LAB GAP 7-17 mmol/L Anion Gap 16 LAB BC BUN/CREA Ratio 18 LAB [facility] 278-305 mOsm/kg Osmolality 292 (Calc) LAB GFR >60 mL/min/1.73 Low sqM Est GFR,non 45 [place] LAB GFRA >60 mL/min/1.73 Low sqM Est GFR, 54 Performed By: #### ASTO, CHM7, BILI, CA, URICB, IPB, MGO, LDO, ALB, CBCDFC #### [facility] [id number] [place] [address] BILIRUBIN, TOTAL AND Collected: 03/30/2018 Status: F Source: [facility] DIRECT 3:46 AM [facility] REPOSITORY TYPE CODE TESTS RESULT OUT OF REFERENCE UNITS RANGE LAB BILT <1.5 mg/dL High Bilirubin Total 3.4 LAB BILD <0.3 mg/dL High Bilirubin 1.5 Direct Performed By: #### ASTO, CHM7, BILI, CA, URICB, IPB, MGO, LDO, ALB, CBCDFC #### [facility] [address] [place] [address] [address] [place] [address] CALCIUM Collected: 03/30/2018 Status: F Source: [facility] 3:46 AM [facility] REPOSITORY TYPE CODE TESTS RESULT OUT OF REFERENCE UNITS RANGE LAB CA 8.6-10.5 mg/dL Calcium 8.7 Performed By: #### ASTO, CHM7, BILI, CA, URICB, IPB, MGO, LDO, ALB, CBCDFC #### [facility] [address] [place] [address] URIC ACID Collected: 03/30/2018 Status: F Source: [facility] 3:46 AM [facility] REPOSITORY TYPE CODE TESTS RESULT OUT OF RANGE REFERENCE UNITS LAB URIC 3.5-7.0 mg/dL Uric Acid 6.2 Performed By: #### ASTO, CHM7, BILI, CA, URICB, IPB, MGO, LDO, ALB, CBCDFC #### [facility] [address] [place] [address] [address] [place] [address] INORGANIC PHOSPHATE Collected: 03/30/2018 Status: F Source: [facility] 3:46 AM [facility] REPOSITORY TYPE CODE TESTS RESULT OUT OF REFERENCE UNITS RANGE LAB IP 2.2-4.6 mg/dL Inorg Phosphate 3.5 Performed By: #### ASTO, CHM7, BILI, CA, URICB, IPB, MGO, LDO, ALB, CBCDFC #### [facility] [address] [place] [address] MAGNESIUM Collected: 03/30/2018 Status: F Source: [facility] 3:46 AM [facility] REPOSITORY TYPE CODE TESTS RESULT OUT OF REFERENCE UNITS RANGE LAB MG 1.6-2.6 mg/dL Magnesium 2.1 Performed By: #### ASTO, CHM7, BILI, CA, URICB, IPB, MGO, LDO, ALB, CBCDFC #### [facility] [address] [place] [address] LD TOTAL Collected: 03/30/2018 Status: F Source: [facility] 3:46 AM [facility] REPOSITORY TYPE CODE TESTS RESULT OUT OF RANGE REFERENCE UNITS LAB LD 100-190 U/L High LD Total 5123 Performed By: #### ASTO, CHM7, BILI, CA, URICB, IPB, MGO, LDO, ALB, CBCDFC #### [facility] [address] [place] [address] ALBUMIN Collected: 03/30/2018 Status: F Source: [facility] 3:46 AM [facility] REPOSITORY TYPE CODE TESTS RESULT OUT OF REFERENCE UNITS RANGE LAB DOMINGO PDIFF Pathologist TRACKING CODE Differential LAB DRVBPP Dr. Susie Vickers MD, PhD REVIEWED BY LAB PWCOM WBC Cytoplasmic COMMENTS toxic granulation is present. Result Comment: The findings are consistent with the patient's history of a lymphoproliferative disorder. The findings are consistent with involvement by the patient's lymphoma. Correlation with flow cytometric analysis is recommended. Performed By: #### ASTO, CHM7, BILI, CA, URICB, IPB, MGO, LDO, ALB, CBCDFC #### [facility] [address] [place] [address] CBC,PLATELET,DIFFERENTIAL - CCL Collected: Status: F Source: [facility] 03/30/2018 3:46 AM [facility] REPOSITORY TYPE CODE TESTS RESULT OUT OF REFERENCE UNITS RANGE LAB WBC 4.23-9.07 K/uL WBC Count 26.63 High LAB RBC 4.63-6.08 M/uL RBC Count 2.77 Low LAB HGB 13.7-17.5 g/dL Hemoglobin 8.3 Low LAB HCT 40.1-51.0 % Hematocrit 25.5 Low LAB MCV 79.0-92.2 fL Mean Cell 92.1 Volume LAB MCH 25.7-32.2 pg Mean Cell Hgb 30.0 LAB MCHC 32.3-36.5 g/dL Mean Cell Hgb 32.5 Conc LAB RDW 11.6-14.4 % RBC 20.3 High Distribution LAB PLT 163-337 K/uL Platelet Count 38 Low LAB MPV 9.4-12.4 fL Mean Platelet NOT Volume MEASURED LAB NRBC 0.0-0.2 /100 WBC NUCLEATED RBC 1.0 High LAB DTYPE DIFFERENTIAL Manual TYPE Differential LAB SEGS % NEUTROPHIL 29.0 SEGMENTED LAB LYM % LYMPHOCYTE % 18.0 LAB MON % MONOCYTE % 5.0 LAB EOS % EOSINOPHIL % 3.0 LAB BASO % BASOPHIL % 1.0 LAB BAND % BAND 1.0 NEUTROPHIL % LAB META % METAMYELOCYTE 1.0 % LAB LPHOMA 0 % LYMPHOMA CELLS 42.0 High LAB SBANS 1.78-5.38 K/uL SEGS + 7.99 High Bands,Absolute LAB ALYM 1.32-3.57 K/uL Abs Lymph 4.79 High LAB AMONO 0.30-0.82 K/uL Abs Victoria 1.33 High LAB AEOS <0.55 K/uL Abs Eos 0.80 High LAB ABASO <0.09 K/uL Abs Baso 0.27 High LAB AMETA 0.00 K/uL Abs Elkin 0.27 High LAB ALYOMA 0 K/uL Abs Lymphoma 11.18 High LAB OVALO OVALOCYTES Present LAB POLYCH POLYCHROMASIA 1+ LAB WCOM WBC COMMENTS Cytoplasmic toxic granulation is present. Result Comment: The findings are consistent with the patient's history of a lymphoproliferative disorder. The findings are consistent with involvement by the patient's lymphoma. Correlation with flow cytometric analysis is recommended. LAB RMORPH Red Cell RBC indices Morphology confirmed by manual smear review. Performed By: #### ASTO, CHM7, BILI, CA, URICB, IPB, MGO, LDO, ALB, CBCDFC #### [facility] [id number] [place] [address] [address] [place] [address] CHEM 7 Collected: 03/29/2018 Status: F Source: [facility] 10:04 PM [facility] REPOSITORY TYPE CODE TESTS RESULT OUT OF REFERENCE UNITS RANGE LAB BUN 7-22 mg/dL BUN High 29 LAB NA 133-143 mmol/L Sodium 137 LAB K 3.5-5.0 mmol/L Potassium 4.7 LAB CL 98-108 mmol/L Chloride 103 LAB CO2 22-30 mmol/L Carbon Dioxide 22 LAB GLUC 70-99 mg/dL Glucose High 141 LAB CREA 0.70-1.30 mg/dL High Creatinine 1.61 LAB GAP 7-17 mmol/L Anion Gap 17 LAB BC BUN/CREA Ratio 18 LAB [facility] 278-305 mOsm/kg Osmolality 297 (Calc) LAB GFR >60 mL/min/1.73 Low sqM Est GFR,non 42 [place] LAB GFRA >60 mL/min/1.73 Low sqM Est GFR, 51 Performed By: #### JETTM7, CA, URICB, IPB, LDO #### [facility] [address] [place] [address] [address] [place] [address] CALCIUM Collected: 03/29/2018 Status: F Source: [facility] 10:04 PM [facility] REPOSITORY TYPE CODE TESTS RESULT OUT OF REFERENCE UNITS RANGE LAB CA 8.6-10.5 mg/dL Calcium 9.0 Performed By: #### JETTM7, CA, URICB, IPB, LDO #### [facility] [address] [place] [address] [address] [place] [address] URIC ACID Collected: 03/29/2018 Status: F Source: [facility] 10:04 PM [facility] REPOSITORY TYPE CODE TESTS RESULT OUT OF RANGE REFERENCE UNITS LAB URIC 3.5-7.0 mg/dL Uric Acid 6.0 Performed By: #### CHM7, CA, URICB, IPB, LDO #### [facility] [address] [place] [address] [address] [place] [address] INORGANIC PHOSPHATE Collected: 03/29/2018 Status: F Source: [facility] 10:04 PM [facility] REPOSITORY TYPE CODE TESTS RESULT OUT OF REFERENCE UNITS RANGE LAB IP 2.2-4.6 mg/dL Inorg Phosphate 2.9 Performed By: #### CHM7, CA, URICB, IPB, LDO #### [facility] [address] [place] [id number] [place] [address] [address] [place] [address] LD TOTAL Collected: 03/29/2018 Status: F Source: [facility] 10:04 PM [facility] REPOSITORY TYPE CODE TESTS RESULT OUT OF RANGE REFERENCE UNITS LAB LD 100-190 U/L High LD Total 5489 Performed By: #### CHM7, CA, URICB, IPB, LDO #### [facility] [address] [place] [id number] [place] [address] [address] [place] [address] Observed: 03/29/2018 Status: F Source: [facility] TYPE AND CROSS 5:42 PM [facility] REPOSITORY ABO/RH(D): O POSITIVE ANTIBODY SCREEN: NEGATIVE Performed By: #### XM #### [facility] [address] [place] [address] [address] [place] [address] IMMUNOPHENOTYPING, BLOOD Collected: Status: X Source: [facility] 03/29/2018 5:29 PM [facility] REPOSITORY TYPE CODE TESTS RESULT OUT OF REFERENCE UNITS RANGE LAB PBIPP This result Immunophenot has been yping, blood cancelled. Performed By: #### PBIPP #### [facility] (DEFAULT) [address] [place] [address] CYTOGENETICS Observed: 03/29/2018 Status: F Source: [facility] 5:29 PM [facility] REPOSITORY Cytogenetics Report Patient Name: LEXI DICKINSON Med. Rec #: [id number] Submitting Physician: LINDA CRUZ Clinical History Mantle Cell Lymphoma SPECIMEN(S) RECEIVED: A: Peripheral Blood KARYOTYPE Test not performed INTERPRETATION This is a peripheral blood sample from a patient with a history of mantle cell lymphoma. A bone biopsy was also received from this patient (see [id number]); therefore, analysis was performed on the bone biopsy and not the peripheral blood. [email or web address]:04/25/2018 Electronically Signed By Nica George, PhD, AB, FACMG 04/25/2018 16:53:59 LABORATORY DATA Process: 1 Mitogen: PKW/PMA/CpG Duration: 72 hrs Banding: GTG Media: RPMI 30min colcemid Number of cells: 0 Process: 2 Mitogen: CpG Duration: 72 hrs Banding: GTG Media: RPMI 30min colcemid Number of cells: 0 Process: 3 Mitogen: none Duration: 24 hrs Banding: GTG Media: BMC 30min colcemid Number of cells: 0 Chromosome Count Analysis Total 0 Total number of cells karyotyped: 0 FISH REPORT Cytogenetics FISH Report Date Ordered: 03/29/2018 Status: Signed Out Date Reported: 04/17/2018 Laboratory Data Process: 1 Mitogen: PKW/PMA/CpG Duration: 72hrs Banding: FISH Media: RPMI 30min colcemid Number of interphases analyzed: 0 Karyotype/Interpretation Test not performed This is a peripheral blood sample from a patient with a history of mantle cell lymphoma. A bone biopsy was also received from this patient (see [id number]); therefore, analysis will be performed on the bone biopsy and not the peripheral blood. Nica George, PhD, ABMG, FACMG Performed By: #### CYTOG #### [facility] [place] [address] [address] [place] [address] IMMUNOPHENOTYPING, BLOOD Collected: Status: C Source: [facility] 03/29/2018 3:53 PM [facility] REPOSITORY TYPE CODE TESTS RESULT OUT OF REFERENCE UNITS RANGE LAB ICINT Immunophenotyping (PBIPP) SEE NOTES Result Comment: (NOTE) IMMUNOPHENOTYPING DIAGNOSIS PATIENT NAME: LEXI DICKINSON : 1945 ACCN#: [id number] REVIEWED BY: Susie Vickers M.D., Ph.D. [id number] SAMPLE TYPE: Peripheral Blood LABORATORY INTERPRETATION: Immunophenotypic analysis demonstrates a monotypic kappa light chain restricted population of B lymphocytes, consistent with a B cell lymphoproliferative disorder. The monotypic B cells express CD5, partial CD10, dim/moderate CD19, moderate CD20, bright CD38, CD43, and CD81. The cytogenetic study performed on peripheral blood (02/14/2018) showed complex cytogenetic abnormalities in addition to positive t(11:14). Overall, the findings are most consistent with mantle cell lymphoma. There is no immunophenotypic evidence of an abnormal population of T lymphocytes or blasts. PHENOTYPIC DESCRIPTION: Flow cytometric analysis of peripheral blood was performed using a ten color technique with a gating strategy based on CD45 staining and light side scatter characteristics. Lymphocytes represent 61.8 % of the total events analyzed. Of the lymphocytes: 10.7 % are T cells (CD3+) with a CD4:CD8 ratio of 2.1 and an absolute CD4+/CD3+ count of 1054 ABS/mm3. 9.7 % are NK cells (positive for CD56 and/or CD16 and negative for CD3). The B cells represent 70.2 % of the lymphocytes (43.4% of the total events analyzed) and express CD19+, CD5+, CD10+ and CD20+ dim to moderate with subpopulation(s) expressing CD23+ (10%), CD43+ (16%), CD79b+ (12%), CD38+ (17%), CD81+ (27%), CD9+ (17%) and CD22+ (10%). The B cells are essentially negative for FMC7. 9.8 % of the lymphocytes coexpress CD19, CD5, CD43 and lack CD79b. Analysis of surface immunoglobulin light chains shows a [place]:Lambda ratio of 47:5 with moderate staining intensity. MARKER DESCRIPTION LYM REG% ABS/mm3 NORMAL % NML ABS ABSOLUTE LYMPHOCYTE COUNT 50136 1972-5532 CD19+ B CELL 70.2 44692 2.0-21.0 20-1008 CD19+/CD20+ B CELL 55.5 8863 2.0-21.0 20-1008 SIG SURFACE IG 52 K/L KAPPA/LAMBDA 47:5 RATIO CD2+ T CELL 13.1 2092 70.0-92.0 700-4416 CD3+ T CELL 10.7 1709 59.0-92.0 590-4416 CD4+/CD3- T CELL 1.1 CD4+/CD3+ T HELPER 6.6 1054 32.0-62.0 320-2976 CD8+/CD3- T CELL 0.7 CD8+/CD3+ T SUPPRESSOR 3.1 495 11.0-40.0 110-1920 HSRA CD4/CD8 2.1 RATIO CD5+/CD19- T CELL 18.2 CD5+/CD19+ 59.8 CD23+ B CELL SUBSET 9.6 CD19+/CD10+ 40.5 CD10+ KURTIS 48.8 CD7+/CD2- T CELL 0.8 CD7+/CD2+ T CELL 12.6 CD13+/HLA DR- MONO/GRAN 1.[address]+/CD13+ 6.4 HLADR+/CD13- 80.2 CD14+/CD13- 0.0 CD13+/CD14+ 1.3 CD56/16+/CD3- NATURAL KILLER 9.7 1549 3.0-25.0 30-1200 CLL MARKERS LYM REG % CD19+/CD79b- 15.5 CD19+/CD79b+ 12.2 CD43+/CD19+ 15.7 CD43+/CD79b+ 5.8 CD38+/CD19+ 17.0 CD19+/CD9+ 16.8 CD81+/CD19+ 27.4 CD81+/CD19- 71.1 CD19+/CD81- 0.1 FMC7+/CD19- 0.1 CD19+/FMC7+ 0.2 CD19+/CD22+ 10.0 CD19+/CD5+/CD43+/CD79b-/CD9+/CD38+ 9.3 CD19+/CD5+/CD43+/CD79b-/CD9+/CD38- 0.1 CD19+/CD5+/CD43+/CD79b-/CD9-/CD38+ 0.1 CD19+/CD5+/CD43+/CD79b-/CD9-/CD38- 0.3 TOTAL CD19+/CD5+/CD43+/CD79b- 9.8 MARKERS TESTED: CD10, CD13, CD14, CD19, CD2, CD20, CD22, CD23, CD3, CD38, CD4, CD43, CD45, CD5, CD56/16, CD7, CD79b, CD8, CD81, CD9, FMC7, HLA DR, KAPPA, LAMBDA MARKERS BILLED: 24 This test was developed and its performance characteristics determined The Flow Cytometry Laboratory at [facility]. It has not been cleared or approved by the FDA. This laboratory is certified under the Clinical Laboratory Improvement Amendments (CLIA) as qualified to perform high complexity clinical laboratory testing. This test is used for clinical purposes. It should not be regarded as investigational or for research. The [facility] Flow Cytometry Laboratory lower limit of CLL MRD detection is 0.1% of the gated lymphocytes. Performed By: #### PBIPP #### [place] [address] PT*PTT Collected: 03/29/2018 Status: F Source: [facility] 3:52 PM [facility] REPOSITORY TYPE CODE TESTS RESULT OUT OF RANGE REFERENCE UNITS LAB PT 11.9-14.2 sec PT 13.7 LAB INR 0.9-1.1 INR 1.0 LAB PTT 24.0-34.3 sec PTT 25.0 Performed By: #### PTPTT, HFP, CHM7, CA, URICB, IPB, MGO, LDO, CBCDFC, IAPTHD #### [place] [address] HEPATIC FUNCTION Collected: 03/29/2018 Status: F Source: [facility] 3:52 PM [facility] REPOSITORY TYPE CODE TESTS RESULT OUT OF REFERENCE UNITS RANGE LAB ALB 3.5-5.0 g/dL Albumin 4.0 LAB BILD <0.3 mg/dL Bilirubin High Direct 0.7 LAB BILT <1.5 mg/dL Bilirubin High Total 2.7 LAB ALP 32-126 U/L Alkaline High Phosphatase 263 LAB ALT 10-52 U/L ALT High 73 LAB AST 14-40 U/L AST High 139 LAB TP 6.4-8.3 g/dL Total Protein 6.8 Performed By: #### PTPTT, HFP, CHM7, CA, URICB, IPB, MGO, LDO, CBCDFC, IAPTHD #### [facility] [address] [place] [address] [facility] [address] [place] [address] CHEM 7 Collected: 03/29/2018 Status: F Source: [facility] 3:52 PM [facility] REPOSITORY TYPE CODE TESTS RESULT OUT OF REFERENCE UNITS RANGE LAB BUN 7-22 mg/dL BUN High 28 LAB NA 133-143 mmol/L Sodium 139 LAB K 3.5-5.0 mmol/L Potassium 4.4 LAB CL 98-108 mmol/L Chloride 106 LAB CO2 22-30 mmol/L Carbon Dioxide 22 LAB GLUC 70-99 mg/dL Low Glucose 69 LAB CREA 0.70-1.30 mg/dL High Creatinine 1.46 LAB GAP 7-17 mmol/L Anion Gap 15 LAB BC BUN/CREA Ratio 19 LAB [facility] 278-305 mOsm/kg Osmolality 295 (Calc) LAB GFR >60 mL/min/1.73 Low sqM Est GFR,non 47 [place] Ze[place]ander LAB GFRA >60 mL/min/1.73 Low sqM Est GFR, 57 Performed By: #### PTPTT, HFP, CHM7, CA, URICB, IPB, MGO, LDO, CBCDFC, IAPTHD #### [facility] [address] [place] [address] [address] CALCIUM Collected: 03/29/2018 Status: F Source: [facility] 3:52 PM [facility] REPOSITORY TYPE CODE TESTS RESULT OUT OF REFERENCE UNITS RANGE LAB CA 8.6-10.5 mg/dL Calcium 8.8 Performed By: #### PTPTT, HFP, CHM7, CA, URICB, IPB, MGO, LDO, CBCDFC, IAPTHD #### [facility] [address] [place] [address] [facility] [address] [address] URIC ACID Collected: 03/29/2018 Status: F Source: [facility] 3:52 PM [facility] REPOSITORY TYPE CODE TESTS RESULT OUT OF RANGE REFERENCE UNITS LAB URIC 3.5-7.0 mg/dL Uric Acid 5.7 Performed By: #### PTPTT, HFP, CHM7, CA, URICB, IPB, MGO, LDO, CBCDFC, IAPTHD #### [facility] [address] [address] INORGANIC PHOSPHATE Collected: 03/29/2018 Status: F Source: [facility] 3:52 PM [facility] REPOSITORY TYPE CODE TESTS RESULT OUT OF REFERENCE UNITS RANGE LAB IP 2.2-4.6 mg/dL Inorg Phosphate 2.6 Performed By: #### PTPTT, HFP, CHM7, CA, URICB, IPB, MGO, LDO, CBCDFC, IAPTHD #### [facility] [address] [place] [address] MAGNESIUM Collected: 03/29/2018 Status: F Source: [facility] 3:52 PM [facility] REPOSITORY TYPE CODE TESTS RESULT OUT OF REFERENCE UNITS RANGE LAB MG 1.6-2.6 mg/dL Magnesium 2.0 Performed By: #### PTPTT, HFP, CHM7, CA, URICB, IPB, MGO, LDO, CBCDFC, IAPTHD #### [facility] [address] [address] LD TOTAL Collected: 03/29/2018 Status: F Source: [facility] 3:52 PM [facility] REPOSITORY TYPE CODE TESTS RESULT OUT OF RANGE REFERENCE UNITS LAB LD 100-190 U/L High LD Total 5037 Performed By: #### PTPTT, HFP, CHM7, CA, URICB, IPB, MGO, LDO, CBCDFC, IAPTHD #### [facility] [id number] [place] [address] CBC,PLATELET,DIFFERENTIAL - CCL Collected: Status: F Source: [facility] 03/29/2018 3:52 PM [facility] REPOSITORY TYPE CODE TESTS RESULT OUT OF REFERENCE UNITS RANGE LAB WBC 4.23-9.07 K/uL WBC High Count 29.48 LAB RBC 4.63-6.08 M/uL Low RBC Count 3.25 LAB HGB 13.7-17.5 g/dL Low Hemoglobin 9.8 LAB HCT 40.1-51.0 % Low Hematocrit 29.8 LAB MCV 79.0-92.2 fL Mean Cell Volume 91.7 Result Comment: Results inconsistent with previous results LAB MCH 25.7-32.2 pg 30.2 Mean Cell Hgb LAB MCHC 32.3-36.5 g/dL 32.9 Mean Cell Hgb Conc LAB RDW 11.6-14.4 % 20.4 RBC High Distribution LAB PLT 163-337 K/uL 51 Platelet Low Count LAB MPV 9.4-12.4 fL NOT Mean MEASURED Platelet Volume LAB NRBC 0.0-0.2 /100 0.9 WBC NUCLEATED High RBC LAB DTYPE Manual Differential DIFFERENTIAL TYPE LAB SEGS % 24.0 NEUTROPHIL SEGMENTED LAB LYM % 17.0 LYMPHOCYTE % LAB MON % 4.0 MONOCYTE % LAB EOS % 4.0 EOSINOPHIL % LAB BASO % 1.0 BASOPHIL % LAB BAND % 3.0 BAND NEUTROPHIL % LAB META % 2.0 METAMYELOCYTE % LAB MYEL % 1.0 MYELOCYTE % LAB LPHOMA 0 % 44.0 LYMPHOMA High CELLS LAB SBANS 1.78-5.38 K/uL 7.96 SEGS + High Bands,Absolute LAB ALYM 1.32-3.57 K/uL 5.01 Abs Lymph High LAB AMONO 0.30-0.82 K/uL 1.18 Abs Victoria High LAB AEOS <0.55 K/uL 1.18 Abs Eos High LAB ABASO <0.09 K/uL 0.29 Abs Baso High LAB AMETA 0.00 K/uL 0.59 Abs [place] High LAB AMYEL 0.00 K/uL 0.29 Abs Myelo High LAB ALYOMA 0 K/uL 12.97 Abs High Lymphoma LAB GIAPLT GIANT Present PLATELETS LAB OVALO OVALOCYTES Present LAB POLYCH 1+ POLYCHROMASIA LAB WCOM WBC Leukoerythroblastic COMMENTS changes. Result Comment: Cytoplasmic toxic granulation is present. The findings are consistent with involvement by the patient's lymphoma. Correlation with flow cytometric analysis is recommended, if clinically indicated. LAB PLTEST PLATELET Automated ESTIMATE platelet count confirmed by manual slide review. LAB RMORPH Red Cell RBC indices Morphology confirmed by manual smear review. Performed By: #### PTPTT, HFP, CHM7, CA, URICB, IPB, MGO, LDO, CBCDFC, IAPTHD #### [facility] [address] [place] [id number] [facility] [address] [place] [id number] PATHOLOGIST DIFFERENTIAL Collected: 03/29/2018 Status: F Source: [facility] 3:52 PM [facility] REPOSITORY TYPE CODE TESTS RESULT OUT OF REFERENCE UNITS RANGE LAB DTMARLA CULVERFF Pathologist TRACKING CODE Differential LAB DRVBPP Dr. Susie Vickers MD, PhD DIFFERENTIAL REVIEWED BY LAB PWCOM WBC Leukoerythroblastic COMMENTS changes. Result Comment: Cytoplasmic toxic granulation is present. The findings are consistent with involvement by the patient's lymphoma. Correlation with flow cytometric analysis is recommended, if clinically indicated. Performed By: #### PTPTT, HFP, CHM7, CA, URICB, IPB, MGO, LDO, CBCDFC, IAPTHD #### [facility] [address] [place] [address] [address] [place] [address] ONCOLOGY VISIT REPORT Observed: 03/28/2018 Status: F Source: [place] 5:26 PM [facility] REPOSITORY [facility] [address] [place] [address] OFFICE VISIT Date of Service: 03/28/18 1337 MR#: [id number] Acct: [id number] Name: LEXI DICKINSON Rep #: [id number] : 1945 From: Karri Ybarra MD Age/Sex: 72/M Location: [facility] Status: Signed Subjective - Date of Service Date of Service:: 03/28/18 - Chief Complaint F/u for Mantle cell lymphoma and therapy. 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 He was treated with 4 cycles of R-CHOP followed by 2 additional cycles of Rituxan completed on 06/07/2016. 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 He developed new onset anemia, was found to have about 55% blast. 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 CT c/a/p on 02/18/2018 showed left hilar adenopathy. He was started on Ibrutinib 560mg daily on 02/20/2018. Comes in for follow up. He is feeling very tired, still has epigastric pain with Ibrutinib despite anti-acids. - Past Medical/Social History Past Medical History Past Medical History: Anxiety,Hyperlipidemia,Hypertension Cancer: Lymphoma Other Cancer History: Non-Hodgkins Lymphoma Past Surgical History Surgical: Cholecystectomy Other Surgical History: BILATERAL MYRINGOTOMY WITH TYMPANOSTOMY TUBES PLACED Family History Paternal Past Medical History: Diabetes mellitus,Heart disease Maternal Past Medical History: Diabetes mellitus,Heart disease Social History Social History: No changes Smoking Status Never smoker Review of Systems Constitutional:: Reports: Weakness, Fatigue. Denies: Fever, Sweats Cardiovascular:: Denies: Chest pain, Palpitations, Dyspnea on exertion, Orthopnea, PND, Shortness of breath Respiratory: Denies: Cough, Hemoptysis, Shortness of Breath, Wheezing Gastrointestinal:: Denies: Abdominal pain, Nausea, Vomiting, Diarrhea, Constipation, Hematochezia Genitourinary: Denies: Dysuria, Hematuria, 15, Flank pain Musculoskeletal:: Denies: Back pain, Myalgia, Arthralgia Skin: Denies: Rash, Skin Changes, Wounds Neurological:: Denies: Headache, Dizziness, Visual changes, Tinnitus, Hearing loss Psychiatric: Denies: Anxiety, Depression, Homicidal Ideations, Suicidal Ideations Vital Signs Height 5 ft 9 in Weight: 77.111 kg Weight in Pounds 170.0 lbs Pulse Ox 98 - Physical Exam General: Alert, Oriented x3, No apparent distress HEENT: Atraumatic, PERRLA, EOMI, Normocephalic Oropharynx:: Dry mucosa Neck:: Supple, Trachea midline. Negative for: JVD, bilateral Cardiac:: Regular rate, Regular rhythm, Normal S1, Normal S2. Negative for: Murmur Lungs: Clear to auscultation, Excusion symmetrical. Negative for: Rhonchi, Wheezes Abdomen:: Bowel sounds x 4, Soft, Non-tender, Non-distended. Negative for: Hepatosplenomegaly Neurological: Neuro grossly intact Psychiatric:: Depressed affect Lymphatics:: Negative for: Cervical lymphadenopathy, Supraclavicular lymphadenopathy, Axillary lymphadenopathy Laboratory Data: Laboratory Tests Assessment and Plan Mantle cell lymphoma-new diagnosed on Ibrutinib since 02/20/2018. Today LDH has increased to over 3000 with increase in Blast cells suggestive of progressive disease. Non-Hodgkin's-diffuse large B cell, stage IIA, in remission. Discussed the case with Dr. Sabra Lindsey at [facility], she will arrange for elective admission for further therapy. Plan is to hold Ibrutinib 560mg. Proceed with admission at [facility]. Return to clinic 4 weeks with CBC/CMP/LDH. Medications: Prescriptions This Visit Medication Instructions Recorded Primary Care Provider: Luis Alberto Burgos DO Referring Provider: - Problem List (1) History of non-Hodgkin's lymphoma Status: Chronic (2) Mantle cell lymphoma Status: Chronic Qualifiers: Lymphoma site: unspecified region Qualified Code(s): C83.10 - Mantle cell lymphoma, unspecified site Code Visit Office Visits / Consults: [id number] OV L5 Est 03/28/18 1726 <Electronically signed by Karri Ybarra MD> Date Karri Ybarra MD Cosigner Signature: Date (if applicable) CC: MISCELLANEOUS LAB Collected: 03/28/2018 Status: F Source: [place] PROCEDURE 2 12:59 PM [facility] REPOSITORY Order Comment: Reason for Laboratory Test PHERIPHERAL BLOOD CYTOGENETICS Comments: [id number] Chromosome Analysis, Leukemia/Lymphoma List Test(s) Ordered by Physician: [id number] Chromosome Analysis, Leukemia/Lymphoma TYPE CODE TESTS RESULT OUT OF RANGE REFERENCE UNITS LAB L801.1543 Normal [facility] LAB TEST 2 Result Comment: TEST RESULT LIMITS Chromosome, Leukemia/Lymphoma Specimen Type Comment: BLOOD Cells Counted 20 Cells Analyzed 20 Cells Karyotyped 2 GTG Band Resolution Achieved 400 Cytogenetic Result Comment: 46,XY,t(3;?4)(q21;q35),+7,-8,add(9)(p13),t(11;14)(q13;q32),d er(13;14)(q10;q10),i(17)(q10),+mar[cp14]/45,XY,loan(13;14)(q1 0;q10)[6] Interpetation Comment: Fourteen of 20 GTG banded metaphases examined revealed an abnormal clone characterized by a translocation (11;14)(q13;q32) and additional abnormalities. The 11q13 breakpoint has been shown to involve the cyclin D1 gene (CCND1 or BCL1), and the breakpoint in 14q32 occurs mainly in the J region of the immunoglobulin heavy chain gene. Translocation between these sites has been specifically correlated with mantle cell lymphoma (MCL) and can be found in 15% of [facility] rearranged clones of multiple myeloma. Involvement in CLL is controvertial with a general consensus believing it represents MCL in leukemic phase. Specific FISH probes are available for the estimation of residual disease. The t(13;14) Robertsonian translocation is most likely a constitutional rearrangement. Director Review: Comment: Sarah Julio, PhD, [facility] TESTING PERFOR[facility] AT [facility]. ORIGINAL REPORT ON FILE IN LAB CONTAINS ADDITIONAL TEST SITE INFORMATION. Performed By: #### L801.1543 #### [facility] [address] [place], [address] MISCELLANEOUS LAB Collected: 03/28/2018 Status: F Source: [place] PROCEDURE 12:40 PM [facility] REPOSITORY Order Comment: Reason for Laboratory Test PERIPHERAL BLOOD CYTOMETRY FLOW Comments: [id number] Flow Cytometry Test(s) Ordered: [id number] Flow Cytometry TYPE CODE TESTS RESULT OUT OF RANGE REFERENCE UNITS LAB L801.1541 Normal MISC LAB TEST Result Comment: TEST RESULT LIMITS Comp panel: Leukemia/Lymphoma Flow Interpretation CD5+, CD10+, dim/partial CD4+ B cell lymphoproliferative disorder detected, nonspecific phenotype. (See comment.) Flow Comment Findings are consistent with a B-cell lymphoproliferative disorder but the phenotype is nonspecific. Clinical, morphologic and cytogenetic correlation is necessary for further subclassification. Previous phenotyping report from 06/01/16 was reviewed. This case was reviewed in intradepartmental consultation and the results reflect our consensus opinion. Clinical Information Accompanying CBC dated 03/28/18 shows leukocytosis, anemia, thrombocytopenia, neutrophilia, lymphocytosis, and monocytosis: WBC count 37.5, RBC 3.2, Hgb 9.6, Hct 30.0, MCV 93.5, Clemente% 25, Lym% 69, Mon% 5, Blasts% 2, Clemente 9.3, Lym 24.6, Plt 74K Specimen Type Peripheral blood Assessment of Leukocytes A dim/partial CD4+, CD5+, CD10+ monoclonal B cell population is detected with kappa light chain restriction representing 36% of leukocytes. There is no loss of, or aberrant expression of, the wallace T cell antigens to suggest a neoplastic T cell process. CD4:CD8 ratio 2.3 A small population of circulating myeloblasts is detected. This is an abnormal finding in peripheral blood. Granulocytes show left-shifted maturation. No monoclonal or abnormal plasma cell population is detected. Viability 76% Cell viability in this sample is sufficient for analysis but is less than optimal. Immunophenotypic Profile Abnormal cell population: present-36% of total cells (Phenotype below) Analysis and Gating Strategy 8 color analysis with CD45/SSC Phenotype Chart CD2 (-) CD3 (-) CD4 See Text CD5 (+) CD7 (-) CD8 (-) CD10 (+) CD11b (-) CD11c (-) CD13 (-) CD14 (-) CD15 (-) CD16 (-) CD19 (+) Dim CD20 (+) Dim CD22 (+) Dim CD23 (-) CD33 (-) CD34 (-) CD38 (+) Bright CD45 (+) CD56 (-) CD57 (-) CD103 (-) CD117 (-) FMC-7 (+) HLA-DR (+) KAPPA (+) Bright LAMBDA (-) CD64 (-) Resulting Path Name Eliza Lulu, M.D. Comment: Each antibody in this assay was utilized to assess for potential abnormalities of studied cell populations or to characterize identified abnormalities. This test was developed and its performance characteristics determined by [facility]. It has not been cleared or approved by the U.S. Food and Drug Administration. The FDA has determined that such clearance or approval is not necessary. This test is used for clinical purposes. It should not be regarded as investigational or for research. TESTING PERFORMED AT [facility]. ORIGINAL REPORT ON FILE IN LAB CONTAINS ADDITIONAL TEST SITE INFORMATION. Performed By: #### L801.1541 #### [facility] [address] [place], [address] CBC W/DIFF, AUTOMATED Collected: 03/28/2018 Status: C Source: [place] 11:47 AM [facility] REPOSITORY Order Comment: Reason for Laboratory Test . CRITICAL VALUE VERIFIED. CALLED TO DANNY AT [facility] 03/28/18 1222 Rani Ca. RESULTS READ BACK BY SAME . REPEAT CDCD PER PHYSICIAN REQUEST. TECH REVIEWED SLIDE WITH PATHOLOGIST. SMEAR SHOWS LARGE ATYPICAL LYMPHS, SUSP. BLASTS. TYPE CODE TESTS RESULT OUT OF REFERENCE UNITS RANGE LAB L100.1000 4.4-11.0 K/mm3 WBC High alert 37.5 LAB L100.1200 4.6-6.2 M/mm3 Low RBC 3.21 LAB L100.1300 13.0-16.5 g/dl Low HGB 9.6 LAB L100.1400 40-54 % Low HCT 30.0 LAB L100.1500 80-94 fL MCV Normal 93.5 LAB L100.1600 27.0-32.0 pg MCH Normal 29.9 LAB L100.1700 32-36 g/gl MCHC Normal 32.0 LAB L100.1810 11.6-14.6 % RDW CV High 20.1 LAB L100.1820 35.1-43.9 fl RDW SD High 65.7 LAB L100.1900 150-450 K/mm3 Low PLT 74 LAB L100.2000 6.2-12.0 fl MPV Normal 10.6 LAB L100.3100 MANUAL DIFF CELLS COUNTED Normal 100 LAB L100.3200 47-70 % Low SEGS 22 LAB L100.3300 0-5 % BAND Normal 3 LAB L100.3400 0-1 % META High 2 LAB L100.3700 0-0 % BLAST High alert 2 LAB L100.3800 19-41 % LYMPH High 66 LAB L100.3900 0-10 % MONOCYTE Normal 5 LAB L100.4400 0-5 % NRBC,MANUAL CT Normal 2 LAB L100.5500 ADEQ PLT EST Normal MKD DEC LAB L100.7300 ANISO Normal 1+ LAB L100.7500 POLYCHROMASIA Normal RARE LAB L100.7600 HYPOCHROMASIA Normal 2+ LAB L100.2620 2.0-7.7 X10 3/uL Absolute Neut High 9.3 LAB L100.2720 0.83-4.51 X10 3/ul Absolute Lymph High 24.60 LAB L100.4600 % ATYPICAL LYMPH Normal 3+ LAB L100.9900 PATH REV Normal Reviewed Result Comment: Absolute lymphocytosis suggestive of low grade lympho- proliferative disorder. A few atypical cells consistent with blasts are noted. Thrombocytopenia. Normocytic anemia, nucleated RBC's are noted. Clinical correlation is necessary. Bolivar Abdullahi M.D. 03/28/18 AMENDED REPORT 03/28/18 1521 PATH REV previously reported as: December Performed By: #### L100.0100 #### [facility] [address] [place], [address] CBC W/DIFF, AUTOMATED Collected: 03/28/2018 Status: C Source: [place] 10:52 AM [facility] REPOSITORY Order Comment: Reason for Laboratory Test . CRITICAL VALUE VERIFIED. CALLED TO MORENA BELTRAN 03/28/18 Germaine3 Rani Ca. RESULTS READ BACK BY SAME . TYPE CODE TESTS RESULT OUT OF REFERENCE UNITS RANGE LAB L100.1200 4.6-6.2 M/mm3 Low RBC 3.19 LAB L100.1300 13.0-16.5 g/dl Low HGB 9.5 LAB L100.1400 40-54 % Low HCT 29.6 LAB L100.1500 80-94 fL MCV Normal 92.8 LAB L100.1600 27.0-32.0 pg MCH Normal 29.8 LAB L100.1700 32-36 g/gl MCHC Normal 32.1 LAB L100.1810 11.6-14.6 % RDW CV High 20.6 LAB L100.1820 35.1-43.9 fl RDW SD High 69.7 LAB L100.1900 150-450 K/mm3 Low PLT 60 LAB L100.2000 6.2-12.0 fl MPV Normal 10.0 LAB L100.3100 MANUAL DIFF CELLS COUNTED Normal 100 LAB L100.3200 47-70 % Low SEGS 21 LAB L100.3300 0-5 % BAND Normal 2 LAB L100.3400 0-1 % META High 2 LAB L100.3700 0-0 % BLAST High alert 10 LAB L100.3800 19-41 % LYMPH High 58 LAB L100.3900 0-10 % MONOCYTE Normal 4 LAB L100.4000 0-5 % EOS Normal 3 LAB L100.5500 ADEQ PLT EST Normal MKD DEC LAB L100.7500 POLYCHROMASIA Normal 1+ LAB L100.7600 HYPOCHROMASIA Normal 2+ LAB L100.1100 4.4-11.0 K/mm3 CORRECTED WBC High alert 36.2 LAB L100.2620 2.0-7.7 X10 3/uL Absolute Neut High 8.3 LAB L100.2720 0.83-4.51 X10 3/ul Absolute Lymph High 21.00 LAB L100.9900 PATH REV Normal Reviewed Result Comment: Absolute lymphocytosis suggestive of low grade lympho- proliferative disorder. A few atypical cells consistent with blasts are noted. Thrombocytopenia. Normocytic anemia, nucleated RBC's are noted. Clinical correlation is necessary. Bolivar Abdullahi M.D. 03/28/18 AMENDED REPORT 03/28/18 1519 PATH REV previously reported as: May foll Performed By: #### L100.0100, L500.4050, L504.2610, L100.4437 #### [facility] [address], [address] COMPREHENSIVE METABOLIC Collected: 03/28/2018 Status: F Source: [place] 10:52 AM [facility] REPOSITORY Order Comment: Reason for Laboratory Test . Serial Specimen #1, #2 or #3? 1 TYPE CODE TESTS RESULT OUT OF RANGE REFERENCE UNITS LAB L501.0100 74-106 mg/dL Normal GLU 85 Result Comment: Please note revised GLUCOSE reference range effective 2017. LAB L501.1000 7-18 mg/dL High BUN 23 LAB L501.1100 0.70-1.30 mg/dL High CREAT,SERUM 1.83 Result Comment: The validity of the calculated GFR AND GFRAA in patients over 70 years has not been determined. Clinical correlation is essential. LAB L501.1110 >60 mL/min Low EST GFR 39 Result Comment: Non- GFR Calc LAB L501.1115 >60 mL/min Low EST GFR - AA 47 Result Comment: GFR Calc LAB L501.1255 ml/min Normal Estimated CRCL 36.49 LAB L501.1300 10-20 RATIO Normal BUN/CRE 12.6 LAB L501.1500 6.4-8. g/dL Normal 2 T PROT 7.3 LAB L501.1800 3.2-5. g/dL Normal 0 ALB 3.6 LAB L501.1950 2.2-4. g/dL Normal 2 GLOB 3.7 LAB L501.2000 0.9-2. RATIO Normal 4 A/G 1.0 LAB L501.2200 8.5-10 mg/dL Low .1 CA 8.4 LAB L501.4100 15-37 U/L High AST 135 LAB L501.4305 45-117 U/L High ALK P 247 LAB L501.4405 16-61 U/L High ALT 82 LAB L501.4600 0.20-1 mg/dL High .00 T BILI 1.50 LAB L501.5300 136-14 mmol/L Normal 5 NA 140 LAB L501.5600 3.5-5. mmol/L Normal 1 K 3.9 LAB L501.5900 98-107 mmol/L Normal CL 106 LAB L501.6100 21.0-3 mmol/L Normal 2.0 CO2 25.0 LAB L501.6200 5-15 Normal GAP 9 Performed By: #### L100.0100, L500.4050, L504.2610, L100.4425 #### [facility] [address] [place], [address] LDH Collected: 03/28/2018 Status: F Source: [place] 10:52 AM [facility] REPOSITORY Order Comment: Reason for Laboratory Test . Serial Specimen #1, #2 or #3? 1 TYPE CODE TESTS RESULT OUT OF RANGE REFERENCE UNITS LAB L504.2610 87-241 U/L High LDH 3221 Performed By: #### L100.0100, L500.4050, L504.2610, L100.4425 #### [facility] [address] [place], [place], [address] NRBC PANEL Collected: 03/28/2018 Status: F Source: [place] 10:52 AM [facility] REPOSITORY Order Comment: Reason for Laboratory Test . CRITICAL VALUE VERIFIED. CALLED TO MORENA BELTRAN 03/28/18 1113 Rani Ca. RESULTS READ BACK BY SAME . TYPE CODE TESTS RESULT OUT OF RANGE REFERENCE UNITS LAB L100.4450 0-5 % Normal NRBC, FLAGGED 0.9 LAB L100.4455 0-5 10 3/uL Normal NRBC # 0.34 Performed By: #### L100.0100, L500.4050, L504.2610, L100.4425 #### [facility] [address] [place], [address] Observed: 03/14/2018 Status: F Source: [place] STOOL OCCULT BLOOD 6:00 AM [facility] IFOB REPOSITORY Reason for Laboratory Test . STOB iFOB Occult Blood Negative Performed By: #### M100.7900 #### [facility] [address] [place], [address] ONCOLOGY VISIT REPORT Observed: 03/13/2018 Status: F Source: [place] 3:59 PM [facility] REPOSITORY [facility] [place] [address] OFFICE VISIT Date of Service: 03/13/18 1517 MR#: [id number] Acct: [id number] Name: LEXI DICKINSON Rep #: [id number] : 1945 From: Karri Ybarra MD Age/Sex: 72/M Location: [facility] Status: Signed Subjective - Date of Service Date of Service:: 03/13/18 - Chief Complaint F/u for new Mantle cell lymphoma. 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 He was treated with 4 cycles of R-CHOP followed by 2 additional cycles of Rituxan completed on 06/07/2016. 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 He developed new onset anemia, was found to have about 55% blast. 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 CT c/a/p on 02/18/2018 showed left hilar adenopathy. He was started on Ibrutinib 560mg daily on 02/20/2018, comes in for follow up. He feels well, has epigastric pain with Ibrutinib gets better with anti-acids. - Past Medical/Social History Past Medical History Past Medical History: Anxiety,Hyperlipidemia,Hypertension Cancer: Lymphoma Other Cancer History: Non-Hodgkins Lymphoma Past Surgical History Surgical: Cholecystectomy Other Surgical History: BILATERAL MYRINGOTOMY WITH TYMPANOSTOMY TUBES PLACED Family History Paternal Past Medical History: Diabetes mellitus,Heart disease Maternal Past Medical History: Diabetes mellitus,Heart disease Social History Social History: No changes Smoking Status Never smoker Review of Systems Constitutional:: Denies: Fever, Sweats, Weight loss, Appetite change, Chills Cardiovascular:: Denies: Chest pain, Palpitations, Dyspnea on exertion, Orthopnea, PND, Shortness of breath Respiratory: Denies: Cough, Hemoptysis, Shortness of Breath, Wheezing Gastrointestinal:: Reports: Abdominal pain - with pills.. Denies: Nausea, Vomiting, Diarrhea, Constipation, Hematochezia Genitourinary: Denies: Dysuria, Hematuria, 15, Flank pain Musculoskeletal:: Denies: Back pain, Myalgia, Arthralgia Skin: Denies: Rash, Skin Changes, Wounds Neurological:: Denies: Headache, Dizziness, Visual changes, Tinnitus, Hearing loss Psychiatric: Denies: Anxiety, Depression, Homicidal Ideations, Suicidal Ideations Vital Signs Height 5 ft 9 in Weight: 77.111 kg Weight in Pounds 170.0 lbs Pulse Ox 98 - Physical Exam General: Alert, Oriented x3, No apparent distress HEENT: Atraumatic, PERRLA, EOMI, Normocephalic Oropharynx:: Dry mucosa Neck:: Supple, Trachea midline. Negative for: JVD, bilateral Cardiac:: Regular rate, Regular rhythm, Normal S1, Normal S2. Negative for: Murmur Lungs: Clear to auscultation, Excusion symmetrical. Negative for: Rhonchi, Wheezes Abdomen:: Bowel sounds x 4, Soft, Non-tender, Non-distended. Negative for: Hepatosplenomegaly Extremities:: Negative for: Cyanosis, Edema Neurological: Neuro grossly intact Skin:: Negative for: Lesions, Rash, Petechiae, Ecchymosis Psychiatric:: Appropriate affect, Euthymic Lymphatics:: Negative for: Cervical lymphadenopathy, Supraclavicular lymphadenopathy, Axillary lymphadenopathy Laboratory Data: Laboratory Tests WBC 4.7 (4.4-11.0) K/mm3 RBC 2.81 L (4.6-6.2) M/mm3 Hgb 8.6 L (13.0-16.5) g/dl Hct 25.6 L (40-54) % Assessment and Plan Mantle cell lymphoma-new diagnosed on Ibrutinib since 02/20/2018. Non-Hodgkin's-diffuse large B cell, stage IIA. In remission. Tolerating therapy except for dyspepsia. Plan is to continue Ibrutinib 560mg daily. Prescription renewed. Check FOBT. Return to clinic 2 weeks with CBC/CMP/LDH. Medications: Prescriptions This Visit Medication Instructions Recorded Primary Care Provider: Luis Alberto Burgos DO Referring Provider: - Problem List (1) History of non-Hodgkin's lymphoma Status: Chronic (2) Mantle cell lymphoma Status: Acute Qualifiers: Lymphoma site: unspecified region Qualified Code(s): C83.10 - Mantle cell lymphoma, unspecified site Code Visit Office Visits / Consults: [id number] OV L4 Est 07/16/18 1559 <Electronically signed by Karri Ybarra MD> Date Karri Ybarra MD Cosigner Signature: Date (if applicable) CC: CBC W/DIFF, AUTOMATED Collected: 03/13/2018 Status: F Source: [place] 2:20 PM [facility] REPOSITORY Order Comment: Reason for Laboratory Test . TYPE CODE TESTS RESULT OUT OF RANGE REFERENCE UNITS LAB L100.1000 4.4-11.0 K/mm3 Normal WBC 4.7 LAB L100.1200 4.6-6.2 M/mm3 Low RBC 2.81 LAB L100.1300 13.0-16.5 g/dl Low HGB 8.6 LAB L100.1400 40-54 % Low HCT 25.6 LAB L100.1500 80-94 fL Normal MCV 91.1 LAB L100.1600 27.0-32.0 pg Normal MCH 30.6 LAB L100.1700 32-36 g/gl Normal MCHC 33.6 LAB L100.1810 11.6-14.6 % High RDW CV 17.9 LAB L100.1820 35.1-43.9 fl High RDW SD 56.9 LAB L100.1900 150-450 K/mm3 Normal PLT 172 LAB L100.2000 6.2-12.0 fl Normal MPV 10.1 LAB L100.2100 47-70 % Low NEUT% 31.9 LAB L100.2200 19-41 % High LY% 43.6 LAB L100.2300 0-10 % High MONO% 16.9 LAB L100.2400 0-5 % Normal EO% 4.4 LAB L100.2500 0-1 % High BASO% 1.9 LAB L100.2550 0.0-0.9 % High IM GRAN % 1.300 Result Comment: IG% - Immature Granulocytes (promyelocytes, myelocytes and metamyelocytes) > 1% indicates that a LEFT SHIFT is Present. LAB L100.2620 2.0-7.7 X10 3/uL Low Absolute Neut 1.5 LAB L100.2720 0.83-4.51 X10 3/ul Normal Absolute Lymph 2.06 Performed By: #### L100.0100 #### [facility] [place], [address] COMPREHENSIVE METABOLIC Collected: 03/13/2018 Status: F Source: [facility] 2:20 PM [facility] REPOSITORY Order Comment: Reason for Laboratory Test . TYPE CODE TESTS RESULT OUT OF RANGE REFERENCE UNITS LAB L501.0100 74-106 mg/dL Normal GLU 106 Result Comment: Fasting Glucose result from 100 to 125 mg/dL suggests IMPAIRED HOMEOSTASIS per A.D.A. criteria. Please note revised GLUCOSE reference range effective 2017. LAB L501.1000 7-18 mg/dL High BUN 21 LAB L501.1100 0.70-1.30 mg/dL High CREAT,SERUM 1.71 Result Comment: The validity of the calculated GFR AND GFRAA in patients over 70 years has not been determined. Clinical correlation is essential. LAB L501.1110 >60 mL/min Low EST GFR 42 Result Comment: Non- GFR Calc LAB L501.1115 >60 mL/min Low EST GFR - AA 51 Result Comment: GFR Calc LAB L501.1255 ml/min Normal Estimated CRCL 39.05 LAB L501.1300 10-20 RATIO Normal BUN/CRE 12.3 LAB L501.1500 6.4-8. g/dL Normal 2 T PROT 7.2 LAB L501.1800 3.2-5. g/dL Normal 0 ALB 3.9 LAB L501.1950 2.2-4. g/dL Normal 2 GLOB 3.3 LAB L501.2000 0.9-2. RATIO Normal 4 A/G 1.2 LAB L501.2200 8.5-10 mg/dL Normal .1 CA 8.6 LAB L501.4100 15-37 U/L Low AST 12 LAB L501.4305 45-117 U/L Normal ALK P 90 LAB L501.4405 16-61 U/L Normal ALT 20 LAB L501.4600 0.20-1 mg/dL High .00 T BILI 1.30 LAB L501.5300 136-14 mmol/L Normal 5 NA 140 LAB L501.5600 3.5-5. mmol/L Normal 1 K 4.3 LAB L501.5900 98-107 mmol/L High CL 109 LAB L501.6100 21.0-3 mmol/L Normal 2.0 CO2 25.0 LAB L501.6200 5-15 Normal GAP 6 Performed By: #### L500.4050 #### [facility] [address] [place], [address] ONCOLOGY VISIT REPORT Observed: 03/01/2018 Status: F Source: [place] 6:08 PM [facility] REPOSITORY [facility] [address] [place] [address] OFFICE VISIT Date of Service: 02/27/18 1650 MR#: [id number] Acct: [id number] Name: LEXI DICKINSON Rep #: [id number] : 1945 From: Karri Ybarra MD Age/Sex: 72/M Location: [facility] Status: Signed Subjective - Date of Service Date of Service:: 02/27/18 - Chief Complaint F/u for new Mantle cell lymphoma. 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 He was treated with 4 cycles of R-CHOP followed by 2 additional cycles of Rituxan completed on 06/07/2016. 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 He developed new onset anemia, was found to have about 55% blast. 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 CT c/a/p on 02/18/2018 showed left hilar adenopathy. He was started on Ibrutinib on 02/20/2018, comes in for follow up. He feels well. - Past Medical/Social History Past Medical History Past Medical History: Anxiety,Hyperlipidemia,Hypertension Cancer: Lymphoma Other Cancer History: Non-Hodgkins Lymphoma Past Surgical History Surgical: Cholecystectomy Other Surgical History: BILATERAL MYRINGOTOMY WITH TYMPANOSTOMY TUBES PLACED Family History Paternal Past Medical History: Diabetes mellitus,Heart disease Maternal Past Medical History: Diabetes mellitus,Heart disease Social History Social History: No changes Smoking Status Never smoker Review of Systems Constitutional:: Denies: Fever, Sweats, Weight loss, Appetite change, Chills Cardiovascular:: Denies: Chest pain, Palpitations, Dyspnea on exertion, Orthopnea, PND, Shortness of breath Respiratory: Denies: Cough, Hemoptysis, Shortness of Breath, Wheezing Gastrointestinal:: Denies: Abdominal pain, Nausea, Vomiting, Diarrhea, Constipation, Hematochezia Genitourinary: Denies: Dysuria, Hematuria, 15, Flank pain Musculoskeletal:: Denies: Back pain, Myalgia, Arthralgia Skin: Denies: Rash, Skin Changes, Wounds Neurological:: Denies: Headache, Dizziness, Visual changes, Tinnitus, Hearing loss Psychiatric: Denies: Anxiety, Depression, Homicidal Ideations, Suicidal Ideations Vital Signs Height 5 ft 9 in Weight: 76.204 kg Weight in Pounds 168.0 lbs Pulse Ox 98 - Physical Exam General: Alert, Oriented x3, No apparent distress HEENT: Atraumatic, PERRLA, EOMI, Normocephalic Oropharynx:: Dry mucosa Neck:: Supple, Trachea midline. Negative for: JVD, bilateral Cardiac:: Regular rate, Regular rhythm, Normal S1, Normal S2. Negative for: Murmur Lungs: Clear to auscultation, Excusion symmetrical. Negative for: Rhonchi, Wheezes Abdomen:: Bowel sounds x 4, Soft, Non-tender, Non-distended. Negative for: Hepatosplenomegaly Extremities:: Negative for: Cyanosis, Edema Neurological: Neuro grossly intact Skin:: Negative for: Lesions, Rash, Petechiae, Ecchymosis Psychiatric:: Appropriate affect, Euthymic Lymphatics:: Negative for: Cervical lymphadenopathy, Supraclavicular lymphadenopathy, Axillary lymphadenopathy Laboratory Data: Laboratory Tests WBC 3.5 L Hgb 9.2 L Hct 26.6 L Plt Count 97 L Laboratory Tests Assessment and Plan Mantle cell lymphoma-new diagnosed on Ibrutinib since 02/20/2018. Non-Hodgkin's-diffuse large B cell, stage IIA. In remission. Plan is to continue Ibrutinib. Return to clinic 2 weeks with CBC/CMP/LDH. Medications: Prescriptions This Visit Medication Instructions Recorded Aspirin EC 81 mg PO DAILY 11/24/16 Primary Care Provider: Luis Alberto Burgos DO Referring Provider: - Problem List (1) History of non-Hodgkin's lymphoma Status: Chronic (2) Mantle cell lymphoma Status: Acute Qualifiers: Lymphoma site: unspecified region Qualified Code(s): C83.10 - Mantle cell lymphoma, unspecified site Code Visit Office Visits / Consults: 17050 OV L4 Est 03/01/18 1808 <Electronically signed by Karri Ybarra MD> Date Karri Ybarra MD Cosigner Signature: Date (if applicable) CC: CBC W/DIFF, AUTOMATED Collected: 02/27/2018 Status: C Source: [place] 4:07 PM [facility] REPOSITORY Order Comment: Reason for Laboratory Test . TYPE CODE TESTS RESULT OUT OF RANGE REFERENCE UNITS LAB L100.1000 4.4-11.0 K/mm3 Low WBC 3.5 LAB L100.1200 4.6-6.2 M/mm3 Low RBC 3.02 LAB L100.1300 13.0-16.5 g/dl Low HGB 9.2 LAB L100.1400 40-54 % Low HCT 26.6 LAB L100.1500 80-94 fL Normal MCV 88.1 LAB L100.1600 27.0-32.0 pg Normal MCH 30.5 LAB L100.1700 32-36 g/gl Normal MCHC 34.6 LAB L100.1810 11.6-14.6 % High RDW CV 14.8 LAB L100.1820 35.1-43.9 fl High RDW SD 46.1 LAB L100.1900 150-450 K/mm3 Low 97 PLT LAB L100.2000 6.2-12.0 fl Normal MPV 10.4 LAB L100.2620 2.0-7.7 X10 3/uL Low Absolute Neut 0.7 LAB L100.2720 0.83-4.51 X10 3/ul Normal Absolute Lymph 1.97 LAB L100.3100 MANUAL DIFF Normal CELLS COUNTED 100 LAB L100.3200 47-70 % Low 19 SEGS LAB L100.3300 0-5 % 1 Normal BAND LAB L100.3400 0-1 % High 2 META LAB L100.3500 0-0 High 1 MYELO LAB L100.3800 19-41 % High 57 LYMPH LAB L100.3900 0-10 % High 13 MONOCYTE LAB L100.4000 0-5 % High 7 EOS LAB L100.9900 Normal PATH REV Reviewed Result Comment: Pancytopenia. Clinical correlation necessary. Bolivar Abdullahi M.D. Pathologist comment added AMENDED REPORT 02/28/18 1201 PATH REV previously reported as: December yulia Performed By: #### L100.0100, L500.4050, L504.2610 #### [facility] [address] [place], [address] COMPREHENSIVE METABOLIC Collected: 02/27/2018 Status: F Source: [facility] 4:07 PM [facility] REPOSITORY Order Comment: Reason for Laboratory Test . Serial Specimen #1, #2 or #3? 1 TYPE CODE TESTS RESULT OUT OF RANGE REFERENCE UNITS LAB L501.0100 74-106 mg/dL Normal GLU 104 Result Comment: Fasting Glucose result from 100 to 125 mg/dL suggests IMPAIRED HOMEOSTASIS per A.D.A. criteria. Please note revised GLUCOSE reference range effective 2017. LAB L501.1000 7-18 mg/dL High BUN 33 LAB L501.1100 0.70-1.30 mg/dL High CREAT,SERUM 2.13 Result Comment: The validity of the calculated GFR AND GFRAA in patients over 70 years has not been determined. Clinical correlation is essential. LAB L501.1110 >60 mL/min Low EST GFR 33 Result Comment: Non- GFR Calc LAB L501.1115 >60 mL/min Low EST GFR - AA 39 Result Comment: GFR Calc LAB L501.1255 ml/min Normal Estimated CRCL 31.35 LAB L501.1300 10-20 RATIO Normal BUN/CRE 15.5 LAB L501.1500 6.4-8. g/dL Normal 2 T PROT 7.3 LAB L501.1800 3.2-5. g/dL Normal 0 ALB 3.9 LAB L501.1950 2.2-4. g/dL Normal 2 GLOB 3.4 LAB L501.2000 0.9-2. RATIO Normal 4 A/G 1.1 LAB L501.2200 8.5-10 mg/dL Normal .1 CA 9.3 LAB L501.4100 15-37 U/L Normal AST 20 LAB L501.4305 45-117 U/L Normal ALK P 68 LAB L501.4405 16-61 U/L Normal ALT 37 LAB L501.4600 0.20-1 mg/dL High .00 T BILI 1.30 LAB L501.5300 136-14 mmol/L Normal 5 NA 139 LAB L501.5600 3.5-5. mmol/L Normal 1 K 4.0 LAB L501.5900 98-107 mmol/L Normal CL 104 LAB L501.6100 21.0-3 mmol/L Normal 2.0 CO2 25.0 LAB L501.6200 5-15 Normal GAP 10 Performed By: #### L100.0100, L500.4050, L504.2610 #### [facility] [address] [place], [place], [address] LDH Collected: 02/27/2018 Status: F Source: [place] 4:07 PM [facility] REPOSITORY Order Comment: Reason for Laboratory Test . Serial Specimen #1, #2 or #3? 1 TYPE CODE TESTS RESULT OUT OF RANGE REFERENCE UNITS LAB L504.2610 87-241 U/L High LDH 246 Performed By: #### L100.0100, L500.4050, L504.2610 #### [facility] [address] [place], [place], [address] ALBUMIN Collected: 02/24/2018 Status: F Source: [facility] 4:22 AM [facility] REPOSITORY TYPE CODE TESTS RESULT OUT OF REFERENCE UNITS RANGE LAB ALB 3.5-5.0 g/dL Low Albumin 3.4 Performed By: #### ALB, C7PMC, LDO, URICB, CBCDFC #### [facility] [address] [place] [id number] [place] [address] [place] [address] CHM7,IP,MG,CA Collected: 02/24/2018 Status: F Source: [facility] 4:22 AM [facility] REPOSITORY TYPE CODE TESTS RESULT OUT OF REFERENCE UNITS RANGE LAB BUN 7-22 mg/dL BUN 19 LAB NA 133-143 mmol/L Sodium 138 LAB K 3.5-5.0 mmol/L Potassium 4.1 LAB CL 98-108 mmol/L Chloride 106 LAB CO2 22-30 mmol/L Carbon Dioxide 23 LAB GLUC 70-99 mg/dL Glucose High 115 LAB CREA 0.70-1.30 mg/dL High Creatinine 1.58 LAB GAP 7-17 mmol/L Anion Gap 13 LAB BC BUN/CREA Ratio 12 LAB IP 2.2-4.6 mg/dL Inorg Phosphate 4.4 LAB MG 1.6-2.6 mg/dL Low Magnesium 1.4 LAB CA 8.6-10.5 mg/dL Calcium 9.4 LAB [facility] 278-305 mOsm/kg Osmolality 292 (Calc) LAB GFR >60 mL/min/1.73 Low sqM Est GFR,non 43 New Zealander LAB GFRA >60 mL/min/1.73 Low sqM Est GFR, 52 Performed By: #### ALB, C7PMC, LDO, URICB, CBCDFC #### [facility] [address] [place] [address] [address] [place] [address] LD TOTAL Collected: 02/24/2018 Status: F Source: [facility] 4:22 AM [facility] REPOSITORY TYPE CODE TESTS RESULT OUT OF RANGE REFERENCE UNITS LAB LD 100-190 U/L High LD Total 226 Performed By: #### ALB, C7PMC, LDO, URICB, CBCDFC #### [facility] [address] [place] [address] [address] [place] [address] URIC ACID Collected: 02/24/2018 Status: F Source: [facility] 4:22 AM [facility] REPOSITORY TYPE CODE TESTS RESULT OUT OF RANGE REFERENCE UNITS LAB URIC 3.5-7.0 mg/dL Uric Acid 4.8 Performed By: #### ALB, C7PMC, LDO, URICB, CBCDFC #### [facility] [address] [place] [address] [facility] [address] [place], [place] [address] CBC,PLATELET,DIFFERENTIAL - CCL Collected: Status: F Source: [facility] 02/24/2018 4:22 AM [facility] REPOSITORY TYPE CODE TESTS RESULT OUT OF REFERENCE UNITS RANGE LAB WBC 4.23-9.07 K/uL WBC Count 4.13 Low LAB RBC 4.63-6.08 M/uL RBC Count 2.92 Low LAB HGB 13.7-17.5 g/dL Hemoglobin 8.6 Low LAB HCT 40.1-51.0 % Hematocrit 25.2 Low LAB MCV 79.0-92.2 fL Mean Cell 86.3 Volume LAB MCH 25.7-32.2 pg Mean Cell Hgb 29.5 LAB MCHC 32.3-36.5 g/dL Mean Cell Hgb 34.1 Conc LAB RDW 11.6-14.4 % RBC 14.4 Distribution LAB PLT 163-337 K/uL Platelet Count 56 Low LAB MPV 9.4-12.4 fL Mean Platelet 10.4 Volume LAB NRBC 0.0-0.2 /100 WBC NUCLEATED RBC 0.0 LAB DTYPE DIFFERENTIAL Manual TYPE Differential LAB SEGS % NEUTROPHIL 17.7 SEGMENTED LAB LYM % LYMPHOCYTE % 65.4 LAB MON % MONOCYTE % 5.3 LAB EOS % EOSINOPHIL % 3.5 LAB BASO % BASOPHIL % 0.0 LAB BAND % BAND 2.7 NEUTROPHIL % LAB META % METAMYELOCYTE 1.8 % LAB MYEL % MYELOCYTE % 1.8 LAB PRO % PROMYELOCYTES 1.8 LAB SBANS 1.78-5.38 K/uL SEGS + 0.84 Low Bands,Absolute LAB ALYM 1.32-3.57 K/uL Abs Lymph 2.70 LAB AMONO 0.30-0.82 K/uL Abs Victoria 0.22 Low LAB AEOS <0.55 K/uL Abs Eos 0.14 LAB ABASO <0.09 K/uL Abs Baso 0.00 LAB AMETA 0.00 K/uL Abs Elkin 0.07 High LAB AMYEL 0.00 K/uL Abs Myelo 0.07 High LAB APRO 0.00 K/uL Abs Promyelo 0.07 High LAB PLTEST PLATELET ESTIMATE Automated platelet count confirmed by manual slide review. LAB RMORPH Red Cell RBC Morphology indices confirmed by manual smear review. Performed By: #### ALB, C7PMC, LDO, URICB, CBCDFC #### [facility] [address] [place] [phone] [place] [address] [address] [place] [address] 25-[place] VITAMIN D Collected: 02/23/2018 Status: F Source: [facility] TOTAL 6:59 AM [facility] REPOSITORY TYPE CODE TESTS RESULT OUT OF REFERENCE UNITS RANGE LAB D25OH 30.0-100.0 ng/mL Low 25-OH Vitamin 16.9 D Total Result Comment: <10 Deficiency 10-29 Insufficiency 30-100 Optimal Level >100 Possible Toxicity Performed By: #### D25OH #### [facility] [address] [place] [address] [address] [place] [address] CHM7,IP,MG,CA Collected: 02/23/2018 Status: F Source: [facility] 5:26 AM [facility] REPOSITORY TYPE CODE TESTS RESULT OUT OF REFERENCE UNITS RANGE LAB BUN 7-22 mg/dL BUN High 24 LAB NA 133-143 mmol/L Sodium 139 LAB K 3.5-5.0 mmol/L Potassium 4.0 LAB CL 98-108 mmol/L Chloride 107 LAB CO2 22-30 mmol/L Carbon Dioxide 23 LAB GLUC 70-99 mg/dL Glucose High 106 LAB CREA 0.70-1.30 mg/dL High Creatinine 1.55 LAB GAP 7-17 mmol/L Anion Gap 13 LAB BC BUN/CREA Ratio 15 LAB IP 2.2-4.6 mg/dL Inorg Phosphate 3.9 LAB MG 1.6-2.6 mg/dL Low Magnesium 1.4 LAB CA 8.6-10.5 mg/dL Calcium 9.4 LAB [facility] 278-305 mOsm/kg Osmolality 295 (Calc) LAB GFR >60 mL/min/1.73 Low sqM Est GFR,non 44 [place]ander LAB GFRA >60 mL/min/1.73 Low sqM Est GFR, 54 Performed By: #### C7PMC, HFP, LDO, URICB, FIB, PTPTT, CBCDFC #### [facility] [address] [place] [id number] [place] [address] [address] [place] [address] HEPATIC FUNCTION Collected: 02/23/2018 Status: F Source: [facility] 5:26 AM [facility] REPOSITORY TYPE CODE TESTS RESULT OUT OF REFERENCE UNITS RANGE LAB ALB 3.5-5.0 g/dL Albumin 3.5 LAB BILD <0.3 mg/dL Bilirubin Direct 0.1 LAB BILT <1.5 mg/dL Bilirubin Total 0.8 LAB ALP 32-126 U/L Alkaline Phosphatase 49 LAB ALT 10-52 U/L ALT 29 LAB AST 14-40 U/L AST 29 LAB TP 6.4-8.3 g/dL Low Total Protein 5.8 Performed By: #### C7PMC, HFP, LDO, URICB, FIB, PTPTT, CBCDFC #### [facility] [address] [place] [address] [address] [place] [address] LD TOTAL Collected: 02/23/2018 Status: F Source: [facility] 5:26 AM [facility] REPOSITORY TYPE CODE TESTS RESULT OUT OF RANGE REFERENCE UNITS LAB LD 100-190 U/L High LD Total 213 Performed By: #### C7PMC, HFP, LDO, URICB, FIB, PTPTT, CBCDFC #### [facility] [address] [place] [id number] [place] [address] [address] [place] [address] URIC ACID Collected: 02/23/2018 Status: F Source: [facility] 5:26 AM [facility] REPOSITORY TYPE CODE TESTS RESULT OUT OF RANGE REFERENCE UNITS LAB URIC 3.5-7.0 mg/dL Uric Acid 5.1 Performed By: #### C7PMC, HFP, LDO, URICB, FIB, PTPTT, CBCDFC #### [facility] [address] [place] [id number] [place] [address] [address] [place] [address] FIBRINOGEN-CLOTTABLE Collected: Status: F Source: [facility] 02/23/2018 5:26 AM [facility] REPOSITORY TYPE CODE TESTS RESULT OUT OF RANGE REFERENCE UNITS LAB FIB 220-410 mg/dL 290 Fibrinogen-C lottable Performed By: #### C7PMC, HFP, LDO, URICB, FIB, PTPTT, CBCDFC #### [facility] [address] [place] [address] [facility] [address] [place] [address] PT*PTT Collected: 02/23/2018 Status: F Source: [facility] 5:26 AM [facility] REPOSITORY TYPE CODE TESTS RESULT OUT OF RANGE REFERENCE UNITS LAB PT 11.9-14.2 sec PT 13.6 LAB INR 0.9-1.1 INR 1.1 LAB PTT 24.0-34.3 sec High PTT 41.3 Performed By: #### C7PMC, HFP, LDO, URICB, FIB, PTPTT, CBCDFC #### [facility] [address] [place] [address] [facility] [address] [place] [id number] CBC,PLATELET,DIFFERENTIAL - CCL Collected: Status: F Source: [facility] 02/23/2018 5:26 AM [facility] REPOSITORY TYPE CODE TESTS RESULT OUT OF REFERENCE UNITS RANGE LAB WBC 4.23-9.07 K/uL WBC Count 4.09 Low LAB RBC 4.63-6.08 M/uL RBC Count 2.65 Low LAB HGB 13.7-17.5 g/dL Hemoglobin 7.9 Low LAB HCT 40.1-51.0 % Hematocrit 22.8 Low LAB MCV 79.0-92.2 fL Mean Cell 86.0 Volume LAB MCH 25.7-32.2 pg Mean Cell 29.8 Hgb LAB MCHC 32.3-36.5 g/dL Mean Cell 34.6 Hgb Conc LAB RDW 11.6-14.4 % RBC 14.8 High Distribution LAB PLT 163-337 K/uL Platelet 48 Low Count LAB MPV 9.4-12.4 fL Mean 10.8 Platelet Volume LAB NRBC 0.0-0.2 /100 WBC NUCLEATED 0.5 High RBC LAB DTYPE Manual DIFFERENTIAL TYPE Differential LAB SEGS % NEUTROPHIL 26.3 SEGMENTED Result Comment: Toxic granulation present LAB LYM % LYMPHOCYTE 57.1 % LAB MON % MONOCYTE % 2.6 LAB EOS % EOSINOPHIL 2.6 % LAB BASO % BASOPHIL % 0.9 LAB BAND % BAND 0.9 NEUTROPHIL % LAB LPHOMA 0 % LYMPHOMA 9.6 High CELLS LAB SBANS 1.78-5.3 K/uL Low 8 SEGS + 1.11 Bands,Absolute LAB ALYM 1.32-3.5 K/uL 7 Abs Lymph 2.34 LAB AMONO 0.30-0.8 K/uL Low 2 Abs Victoria 0.11 LAB AEOS <0.55 K/uL Abs Eos 0.11 LAB ABASO <0.09 K/uL Abs Baso 0.04 LAB ALYOMA K/uL Abs 0.39 Lymphoma LAB PLTEST PLATELET ESTIMATE Automated platelet count confirmed by manual slide review. LAB RMORPH Red Cell RBC Morphology indices confirmed by manual smear review. Performed By: #### C7PMC, HFP, LDO, URICB, FIB, PTPTT, CBCDFC #### [facility] [address] [place] [address] Observed: 02/23/2018 Status: F Source: [facility] TYPE AND CROSS 5:26 AM [facility] REPOSITORY ABO/RH(D): O POSITIVE ANTIBODY SCREEN: NEGATIVE UNIT NUMBER: [id number] BLOOD COMPONENT TYPE: Red Cell,Leukoreduced,[id number] STATUS OF UNIT: Issued, Final TRANSFUSION STATUS: OK TO TRANSFUSE CROSSMATCH RESULT: Electronically Compatible Performed By: #### XM #### [facility] [address] [place] [address] ALBUMIN Collected: 02/22/2018 Status: F Source: [facility] 3:22 AM [facility] REPOSITORY TYPE CODE TESTS RESULT OUT OF REFERENCE UNITS RANGE LAB ALB 3.5-5.0 g/dL Low Albumin 3.4 Performed By: #### ALB, C7PMC, LDO, URICB, CBCDFC #### [facility] [address] [place], [place] [address] [place], [place] [address] CHM7,IP,MG,CA Collected: 02/22/2018 Status: F Source: [facility] 3:22 AM [facility] REPOSITORY TYPE CODE TESTS RESULT OUT OF REFERENCE UNITS RANGE LAB BUN 7-22 mg/dL BUN High 30 LAB NA 133-143 mmol/L Sodium 138 LAB K 3.5-5.0 mmol/L Potassium 3.9 LAB CL 98-108 mmol/L Chloride 104 LAB CO2 22-30 mmol/L Carbon Dioxide 25 LAB GLUC 70-99 mg/dL Glucose High 146 LAB CREA 0.70-1.30 mg/dL High Creatinine 1.72 LAB GAP 7-17 mmol/L Anion Gap 13 LAB BC BUN/CREA Ratio 17 LAB IP 2.2-4.6 mg/dL Inorg Phosphate 4.4 LAB MG 1.6-2.6 mg/dL Low Magnesium 1.4 LAB CA 8.6-10.5 mg/dL Calcium 10.1 LAB [facility] 278-305 mOsm/kg Osmolality 298 (Calc) LAB GFR >60 mL/min/1.73 Low sqM Est GFR,non 39 [place]ander LAB GFRA >60 mL/min/1.73 Low sqM Est GFR, 48 Performed By: #### ALB, C7PMC, LDO, URICB, CBCDFC #### [facility] [address] [place] [address] [address] [place] [address] LD TOTAL Collected: 02/22/2018 Status: F Source: [facility] 3:22 AM [facility] REPOSITORY TYPE CODE TESTS RESULT OUT OF RANGE REFERENCE UNITS LAB LD 100-190 U/L High LD Total 247 Performed By: #### ALB, C7PMC, LDO, URICB, CBCDFC #### [facility] [address] [place] [address] [address] [place] [id number] URIC ACID Collected: 02/22/2018 Status: F Source: [facility] 3:22 AM [facility] REPOSITORY TYPE CODE TESTS RESULT OUT OF RANGE REFERENCE UNITS LAB URIC 3.5-7.0 mg/dL Uric Acid 5.4 Performed By: #### ALB, C7PMC, LDO, URICB, CBCDFC #### [facility] [address] [place] [address] [facility] [address] [place], [place] [address] CBC,PLATELET,DIFFERENTIAL - CCL Collected: Status: F Source: [facility] 02/22/2018 3:22 AM [facility] REPOSITORY TYPE CODE TESTS RESULT OUT OF REFERENCE UNITS RANGE LAB WBC 4.23-9.07 K/uL WBC Count 4.76 LAB RBC 4.63-6.08 M/uL RBC Count 2.49 Low LAB HGB 13.7-17.5 g/dL Hemoglobin 7.4 Low LAB HCT 40.1-51.0 % Hematocrit 21.6 Low LAB MCV 79.0-92.2 fL Mean Cell 86.7 Volume LAB MCH 25.7-32.2 pg Mean Cell 29.7 Hgb LAB MCHC 32.3-36.5 g/dL Mean Cell 34.3 Hgb Conc LAB RDW 11.6-14.4 % RBC 14.5 High Distribution LAB PLT 163-337 K/uL Platelet 54 Low Count LAB MPV 9.4-12.4 fL Mean 11.0 Platelet Volume LAB NRBC 0.0-0.2 /100 WBC NUCLEATED 0.0 RBC LAB DTYPE Manual DIFFERENTIAL TYPE Differential LAB SEGS % NEUTROPHIL 24.3 SEGMENTED LAB LYM % LYMPHOCYTE 51.5 % LAB MON % MONOCYTE % 9.3 LAB EOS % EOSINOPHIL 3.7 % LAB BASO % BASOPHIL % 0.0 LAB BAND % BAND 0.0 NEUTROPHIL % LAB MYEL % MYELOCYTE % 1.9 LAB LPHOMA 0 % LYMPHOMA 9.3 High CELLS LAB SBANS 1.78-5.38 K/uL SEGS + 1.16 Low Bands,Absolute LAB ALYM 1.32-3.57 K/uL Abs Lymph 2.45 LAB AMONO 0.30-0.82 K/uL Abs Victoria 0.44 LAB AEOS <0.55 K/uL Abs Eos 0.18 LAB ABASO <0.09 K/uL Abs Baso 0.00 LAB AMYEL 0.00 K/uL Abs Myelo 0.09 High LAB ALYOMA K/uL Abs 0.44 Lymphoma LAB OVALO OVALOCYTES Present LAB PLTEST PLATELET Automated ESTIMATE platelet count confirmed by manual slide review. Performed By: #### ALB, C7PMC, LDO, URICB, CBCDFC #### [facility] [address] [place] [address] [address] [place] [address] CALCIUM Collected: 02/21/2018 Status: F Source: [facility] 4:11 PM [facility] REPOSITORY TYPE CODE TESTS RESULT OUT OF REFERENCE UNITS RANGE LAB CA 8.6-10.5 mg/dL High Calcium 10.6 Performed By: #### CA #### [facility] [address] [place] [address] [address] [place], [place] [address] ALBUMIN Collected: 02/21/2018 Status: F Source: [facility] 4:32 AM [facility] REPOSITORY TYPE CODE TESTS RESULT OUT OF REFERENCE UNITS RANGE LAB ALB 3.5-5.0 g/dL Low Albumin 3.4 Performed By: #### ALB, C7PMC, LDO, URICB, CBCDFC #### [facility] [address] [place] [address] [address] [place] [address] CHM7,IP,MG,CA Collected: 02/21/2018 Status: F Source: [facility] 4:32 AM [facility] REPOSITORY TYPE CODE TESTS RESULT OUT OF REFERENCE UNITS RANGE LAB BUN 7-22 mg/dL BUN High 29 LAB NA 133-143 mmol/L Sodium 137 LAB K 3.5-5.0 mmol/L Potassium 4.5 LAB CL 98-108 mmol/L Chloride 103 LAB CO2 22-30 mmol/L Carbon Dioxide 26 LAB GLUC 70-99 mg/dL Glucose High 214 LAB CREA 0.70-1.30 mg/dL High Creatinine 1.84 LAB GAP 7-17 mmol/L Anion Gap 13 LAB BC BUN/CREA Ratio 16 LAB IP 2.2-4.6 mg/dL Inorg Phosphate 3.8 LAB MG 1.6-2.6 mg/dL Low Magnesium 1.5 LAB CA 8.6-10.5 mg/dL Calcium 10.5 LAB [facility] 278-305 mOsm/kg Osmolality 301 (Calc) LAB GFR >60 mL/min/1.73 Low sqM Est GFR,non 36 [place] LAB GFRA >60 mL/min/1.73 Low sqM Est GFR, 44 Performed By: #### ALB, C7PMC, LDO, URICB, CBCDFC #### [facility] [address] [place] [address] [facility] [address] [place], [place] [address] LD TOTAL Collected: 02/21/2018 Status: F Source: [facility] 4:32 AM [facility] REPOSITORY TYPE CODE TESTS RESULT OUT OF RANGE REFERENCE UNITS LAB LD 100-190 U/L High LD Total 286 Performed By: #### ALB, C7PMC, LDO, URICB, CBCDFC #### [facility] [address] [place], [place] [id number] [place] [address] [address] [place] [id number] URIC ACID Collected: 02/21/2018 Status: F Source: [facility] 4:32 AM [facility] REPOSITORY TYPE CODE TESTS RESULT OUT OF RANGE REFERENCE UNITS LAB URIC 3.5-7.0 mg/dL Uric Acid 5.2 Performed By: #### ALB, C7PMC, LDO, URICB, CBCDFC #### [facility] [address] [place] [address] [facility] [address] [place] [id number] CBC,PLATELET,DIFFERENTIAL - CCL Collected: Status: C Source: [facility] 02/21/2018 4:32 AM [facility] REPOSITORY TYPE CODE TESTS RESULT OUT OF REFERENCE UNITS RANGE LAB WBC 4.23-9.07 K/uL WBC Count 3.59 Low LAB RBC 4.63-6.08 M/uL RBC Count 2.57 Low LAB HGB 13.7-17.5 g/dL Hemoglobin 7.7 Low LAB HCT 40.1-51.0 % Hematocrit 21.9 Low LAB MCV 79.0-92.2 fL Mean Cell 85.2 Volume LAB MCH 25.7-32.2 pg Mean Cell 30.0 Hgb LAB MCHC 32.3-36.5 g/dL Mean Cell 35.2 Hgb Conc LAB RDW 11.6-14.4 % RBC 14.0 Distribution LAB PLT 163-337 K/uL Platelet 67 Low Count LAB MPV 9.4-12.4 fL Mean 11.1 Platelet Volume LAB NRBC 0.0-0.2 /100 WBC NUCLEATED 0.0 RBC LAB DTYPE Manual DIFFERENTIAL TYPE Differential LAB SEGS % NEUTROPHIL 32.0 SEGMENTED Result Comment: CORRECTED ON 02/22 AT 1343: PREVIOUSLY REPORTED 36.6 Toxic granulation present LAB LYM % LYMPHOCYTE % 41.0 Result Comment: CORRECTED ON 02/22 AT 1343: PREVIOUSLY REPORTED 53.5 LAB MON % MONOCYTE % 7.0 Result Comment: CORRECTED ON 02/22 AT 1343: PREVIOUSLY REPORTED 2.7 LAB EOS % EOSINOPHIL % 3.0 Result Comment: CORRECTED ON 02/22 AT 1343: PREVIOUSLY REPORTED 1.8 LAB BASO % BASOPHIL % 0.0 LAB BAND % BAND NEUTROPHIL % 3.0 Result Comment: CORRECTED ON 02/22 AT 1343: PREVIOUSLY REPORTED 1.8 LAB META % METAMYELOCYTE % 3.0 Result Comment: CORRECTED ON 02/22 AT 1343: PREVIOUSLY REPORTED 2.7 LAB MYEL % MYELOCYTE % 1.0 Result Comment: CORRECTED ON 02/22 AT 1343: PREVIOUSLY REPORTED 0.9 LAB SBANS 1.78-5.38 K/uL SEGS + Low Bands,Absolute 1.26 Result Comment: CORRECTED ON 02/22 AT 1343: PREVIOUSLY REPORTED 1.38 LAB ALYM 1.32-3.57 K/uL Abs Lymph 1.46 Result Comment: CORRECTED ON 02/22 AT 1343: PREVIOUSLY REPORTED 1.92 LAB AMONO 0.30-0.82 K/uL Low Abs Victoria 0.25 Result Comment: CORRECTED ON 02/22 AT 1343: PREVIOUSLY REPORTED 0.10 LAB AEOS <0.55 K/uL Abs Eos 0.11 Result Comment: CORRECTED ON 02/22 AT 1343: PREVIOUSLY REPORTED 0.06 LAB ABASO <0.09 K/uL Abs Baso 0.00 LAB AMETA 0.00 K/uL High Abs Elkin 0.11 Result Comment: CORRECTED ON 02/22 AT 1343: PREVIOUSLY REPORTED 0.10 LAB AMYEL 0.00 K/uL High Abs Myelo 0.04 Result Comment: CORRECTED ON 02/22 AT 1343: PREVIOUSLY REPORTED 0.03 LAB PLTEST PLATELET Automated ESTIMATE platelet count confirmed by manual slide review. LAB LPHOMA 0 % High LYMPHOMA 10.0 CELLS Result Comment: CALLED TO AND READ BACK BY MORENA DEL VALLE AT 1340 ON 02 22 18 LAB ALYOMA K/uL Abs Lymphoma 0.36 Performed By: #### ALB, C7PMC, LDO, URICB, CBCDFC #### [facility] [address] [place] [phone] [place] [address] [address] [place] [id number] CALCIUM Collected: 02/21/2018 Status: F Source: [facility] 2:05 AM [facility] REPOSITORY TYPE CODE TESTS RESULT OUT OF REFERENCE UNITS RANGE LAB CA 8.6-10.5 mg/dL High Calcium 10.9 Performed By: #### CA, CHM6 #### [facility] [address] [place] [address] [address] [place] [id number] CHEM 6 Collected: 02/21/2018 Status: F Source: [facility] 2:05 AM [facility] REPOSITORY TYPE CODE TESTS RESULT OUT OF REFERENCE UNITS RANGE LAB BUN 7-22 mg/dL BUN High 28 LAB NA 133-143 mmol/L Sodium 138 LAB K 3.5-5.0 mmol/L Potassium 4.5 LAB CL 98-108 mmol/L Chloride 102 LAB CO2 22-30 mmol/L Carbon Dioxide 27 LAB CREA 0.70-1.30 mg/dL High Creatinine 1.91 LAB GAP 7-17 mmol/L Anion Gap 14 LAB BC BUN/CREA Ratio 15 LAB GFR >60 mL/min/1.73 Low sqM Est GFR,non 35 New Zealander LAB GFRA >60 mL/min/1.73 Low sqM Est GFR, 42 Performed By: #### CA, CHM6 #### [facility] [address] [place] [phone] [place] [address] [address] [place] [id number] HEMATOCRIT Collected: 02/20/2018 Status: F Source: [facility] 6:32 PM [facility] REPOSITORY TYPE CODE TESTS RESULT OUT OF REFERENCE UNITS RANGE LAB HCT 40.1-51.0 % Low Hematocrit 26.9 Performed By: #### HCT, HGB, CHM6, CA, URICB, IPB, LDO #### [facility] [address] [place] [address] [facility] [address] [place] [address] HEMOGLOBIN Collected: 02/20/2018 Status: F Source: [facility] 6:32 PM [facility] REPOSITORY TYPE CODE TESTS RESULT OUT OF REFERENCE UNITS RANGE LAB HGB 13.7-17.5 g/dL Low Hemoglobin 9.2 Performed By: #### HCT, HGB, CHM6, CA, URICB, IPB, LDO #### [facility] [address] [place] [phone] [place] [address] [address] [place] [address] [id number] CHEM 6 Collected: 02/20/2018 Status: F Source: [facility] 6:32 PM [facility] REPOSITORY TYPE CODE TESTS RESULT OUT OF REFERENCE UNITS RANGE LAB BUN 7-22 mg/dL BUN High 26 LAB NA 133-143 mmol/L Sodium 137 LAB K 3.5-5.0 mmol/L Potassium 4.8 LAB CL 98-108 mmol/L Chloride 100 LAB CO2 22-30 mmol/L Carbon Dioxide 27 LAB CREA 0.70-1.30 mg/dL High Creatinine 2.04 LAB GAP 7-17 mmol/L Anion Gap 15 LAB BC BUN/CREA Ratio 13 LAB GFR >60 mL/min/1.73 Low sqM Est GFR,non 32 [place] Ze[place]ander LAB GFRA >60 mL/min/1.73 Low sqM Est GFR, 39 Performed By: #### HCT, HGB, CHM6, CA, URICB, IPB, LDO #### [facility] [address] [place], [place] [id number] [facility] [address] [place] [id number] CALCIUM Collected: 02/20/2018 Status: F Source: [facility] 6:32 PM [facility] REPOSITORY TYPE CODE TESTS RESULT OUT OF REFERENCE UNITS RANGE LAB CA 8.6-10.5 mg/dL High alert Calcium 12.2 Result Comment: Critical CALC result called to and read back by: MORENA HERNANDEZ at: 02/20/2018 19:41:25 by : 1987 Performed By: #### HCT, HGB, CHM6, CA, URICB, IPB, LDO #### [facility] [address] [place] [phone] [place] [address] [id number] URIC ACID Collected: 02/20/2018 Status: F Source: [facility] 6:32 PM [facility] REPOSITORY TYPE CODE TESTS RESULT OUT OF RANGE REFERENCE UNITS LAB URIC 3.5-7.0 mg/dL Uric Acid 4.8 Performed By: #### HCT, HGB, CHM6, CA, URICB, IPB, LDO #### [facility] [address] [place] [address] [address] [place] [address] INORGANIC PHOSPHATE Collected: 02/20/2018 Status: F Source: [facility] 6:32 PM [facility] REPOSITORY TYPE CODE TESTS RESULT OUT OF REFERENCE UNITS RANGE LAB IP 2.2-4.6 mg/dL Inorg Phosphate 4.2 Performed By: #### HCT, HGB, CHM6, CA, URICB, IPB, LDO #### [facility] [address] [place] [address] LD TOTAL Collected: 02/20/2018 Status: F Source: [facility] 6:32 PM [facility] REPOSITORY TYPE CODE TESTS RESULT OUT OF RANGE REFERENCE UNITS LAB LD 100-190 U/L High LD Total 378 Performed By: #### HCT, HGB, CHM6, CA, URICB, IPB, LDO #### [facility] [address] [place] [address] Observed: 02/20/2018 Status: F Source: [facility] TYPE AND CROSS 3:20 AM [facility] REPOSITORY ABO/RH(D): O POSITIVE ANTIBODY SCREEN: NEGATIVE UNIT NUMBER: [id number] BLOOD COMPONENT TYPE: Red Cell,Leukoreduced,[id number] STATUS OF UNIT: Issued, Final TRANSFUSION STATUS: OK TO TRANSFUSE CROSSMATCH RESULT: Electronically Compatible Performed By: #### XM #### [facility] [address] [place] [address] FIBRINOGEN-CLOTTABLE Collected: Status: F Source: [facility] 02/20/2018 3:11 AM [facility] REPOSITORY TYPE CODE TESTS RESULT OUT OF RANGE REFERENCE UNITS LAB FIB 220-410 mg/dL 335 Fibrinogen-C lottable Performed By: #### FIB, C7PMC, HFP, LDO, URICB, PTPTT, CBCDFC #### [facility] [address] [place] [phone] [place] [address] [address] [place] [id number] CHM7,IP,MG,CA Collected: 02/20/2018 Status: F Source: [facility] 3:11 AM [facility] REPOSITORY TYPE CODE TESTS RESULT OUT OF REFERENCE UNITS RANGE LAB BUN 7-22 mg/dL BUN 20 LAB NA 133-143 mmol/L Sodium 139 LAB K 3.5-5.0 mmol/L Potassium 4.3 LAB CL 98-108 mmol/L Chloride 102 LAB CO2 22-30 mmol/L Carbon Dioxide 27 LAB GLUC 70-99 mg/dL Glucose High 128 LAB CREA 0.70-1.30 mg/dL High Creatinine 1.89 LAB GAP 7-17 mmol/L Anion Gap 14 LAB BC BUN/CREA Ratio 11 LAB IP 2.2-4.6 mg/dL Inorg High Phosphate 4.8 LAB MG 1.6-2.6 mg/dL Low Magnesium 1.5 LAB CA 8.6-10.5 mg/dL Calcium High 11.9 LAB [facility] 278-305 mOsm/kg Osmolality 296 (Calc) LAB GFR >60 mL/min/1.73 Low sqM Est GFR,non 35 [place] Ze[place]ander LAB GFRA >60 mL/min/1.73 Low sqM Est GFR, 43 Performed By: #### FIB, C7PMC, HFP, LDO, URICB, PTPTT, CBCDFC #### [facility] [address] [place] [address] [facility] [address] [place] [id number] HEPATIC FUNCTION Collected: 02/20/2018 Status: F Source: [facility] 3:11 AM [facility] REPOSITORY TYPE CODE TESTS RESULT OUT OF REFERENCE UNITS RANGE LAB ALB 3.5-5.0 g/dL Low Albumin 3.4 LAB BILD <0.3 mg/dL Bilirubin Direct 0.1 LAB BILT <1.5 mg/dL Bilirubin Total 1.0 LAB ALP 32-126 U/L Alkaline Phosphatase 57 LAB ALT 10-52 U/L Low ALT 6 LAB AST 14-40 U/L AST 20 LAB TP 6.4-8.3 g/dL Low Total Protein 5.8 Performed By: #### FIB, C7PMC, HFP, LDO, URICB, PTPTT, CBCDFC #### [facility] [address] [place] [address] [address] [place] [address] LD TOTAL Collected: 02/20/2018 Status: F Source: [facility] 3:11 AM [facility] REPOSITORY TYPE CODE TESTS RESULT OUT OF RANGE REFERENCE UNITS LAB LD 100-190 U/L High LD Total 275 Performed By: #### FIB, C7PMC, HFP, LDO, URICB, PTPTT, CBCDFC #### [facility] [address] [place] [address] [address] URIC ACID Collected: 02/20/2018 Status: F Source: [facility] 3:11 AM [facility] REPOSITORY TYPE CODE TESTS RESULT OUT OF RANGE REFERENCE UNITS LAB URIC 3.5-7.0 mg/dL Uric Acid 5.1 Performed By: #### FIB, C7PMC, HFP, LDO, URICB, PTPTT, CBCDFC #### [facility] [address] [place] [address] [address] PT*PTT Collected: 02/20/2018 Status: F Source: [facility] 3:11 AM [facility] REPOSITORY TYPE CODE TESTS RESULT OUT OF RANGE REFERENCE UNITS LAB PT 11.9-14.2 sec PT 13.8 LAB INR 0.9-1.1 INR 1.1 LAB PTT 24.0-34.3 sec High PTT 40.4 Performed By: #### FIB, C7PMC, HFP, LDO, URICB, PTPTT, CBCDFC #### [facility] [address] [place] [address] [facility] [address] [place], [place] [address] CBC,PLATELET,DIFFERENTIAL - CCL Collected: Status: F Source: [facility] 02/20/2018 3:11 AM [facility] REPOSITORY TYPE CODE TESTS RESULT OUT OF REFERENCE UNITS RANGE LAB WBC 4.23-9.07 K/uL WBC Count 2.68 Low LAB RBC 4.63-6.08 M/uL RBC Count 2.44 Low LAB HGB 13.7-17.5 g/dL Hemoglobin 7.0 Low LAB HCT 40.1-51.0 % Hematocrit 21.2 Low LAB MCV 79.0-92.2 fL Mean Cell 86.9 Volume LAB MCH 25.7-32.2 pg Mean Cell 28.7 Hgb LAB MCHC 32.3-36.5 g/dL Mean Cell 33.0 Hgb Conc LAB RDW 11.6-14.4 % RBC 14.5 High Distribution LAB PLT 163-337 K/uL Platelet 69 Low Count LAB MPV 9.4-12.4 fL Mean 10.5 Platelet Volume LAB NRBC 0.0-0.2 /100 WBC NUCLEATED 0.0 RBC LAB DTYPE Manual DIFFERENTIAL TYPE Differential LAB SEGS % NEUTROPHIL 29.2 SEGMENTED Result Comment: Toxic granulation present LAB LYM % LYMPHOCYTE % 43.5 LAB MON % MONOCYTE % 3.8 LAB EOS % EOSINOPHIL % 0.9 LAB BASO % BASOPHIL % 0.9 LAB BAND % BAND NEUTROPHIL % 3.8 LAB META % METAMYELOCYTE % 2.8 LAB MYEL % MYELOCYTE % 1.9 LAB LPHOMA 0 % LYMPHOMA CELLS 13.2 High LAB SBANS 1.78-5.3 K/uL Low 8 SEGS + 0.88 Bands,Absolute LAB ALYM 1.32-3.5 K/uL Low 7 Abs Lymph 1.17 LAB AMONO 0.30-0.8 K/uL Low 2 Abs Victoria 0.10 LAB AEOS <0.55 K/uL Abs Eos 0.02 LAB ABASO <0.09 K/uL Abs Baso 0.02 LAB AMETA 0.00 K/uL Abs Elkin 0.08 High LAB AMYEL 0.00 K/uL Abs Myelo 0.05 High LAB ALYOMA K/uL Abs Lymphoma 0.35 LAB PLTEST PLATELET ESTIMATE Automated platelet count confirmed by manual slide review. Performed By: #### FIB, C7PMC, HFP, LDO, URICB, PTPTT, CBCDFC #### [facility] [address] [place] [address] [facility] [address] [place], [place] [address] CT CHEST WITH Observed: 02/19/2018 Status: F Source: [facility] 8:11 AM [facility] REPOSITORY EXAM: CT CHEST WITH CONTRAST, 02/18/2018 17:12 PM COMPARISON: No Available Comparisons. CLINICAL INDICATIONS: NHL Staging; RELEVANT CLINICAL HISTORY: TECHNIQUE: Following the administration of intravenous contrast, axial CT images were reconstructed from the volumetric data set, from the thoracic inlet through the adrenal glands. Coronal MIP images were also reconstructed. CONTRAST: iohexol (OMNIPAQUE) 350 MG/ML injection 1-171 mL; Route of Administration: Intravenous; Dose: 90 mL. iohexol (OMNIPAQUE) 300 MG/ML vial 50 mL; Route of Administration: Oral; Dose: 50 mL. This patient underwent a CT examination using radiation exposure as low as reasonably achievable. CTDIvol and DLP radiation exposure values for each series were: Exposure: 1; Series: 2; Anatomy: Chest/Abdomen/Pelvis; Phantom: 32 cm; CTDIvol: 4; DLP: 137 Exposure: 2; Series: 2; Anatomy: Chest/Abdomen/Pelvis; Phantom: 32 cm; CTDIvol: 8; DLP: 446 Exposure: 3; Series: 3; Anatomy: Chest/Abdomen/Pelvis; Phantom: 16 cm; CTDIvol: 5; DLP: 73 The following accession numbers are related to this dose report {[id number]}: [id number] The dose indicators for CT are the volume Computed Tomography (CT) Dose Index (CTDIvol) and the Dose Length Product (DLP), and are measured in units of mGy and mGy-cm, respectively. These indicators are not patient dose, but values generated from the CT scanner acquisition factors and may substantially underestimate or overestimate the absorbed dose based on patient size and other factors. FINDINGS: Lungs and Pleura: Mild upper lung predominant centrilobular and paraseptal emphysematous changes with mild scarring near the apex, right slightly greater than left. Left lower lobe elongated nodule adjacent to the left major fissure is most likely a perifissural lymph node (image 26). Small cluster of left lower lobe subpleural nodules likely infectious/inflammatory (image 30). A few scattered small nonspecific bilateral pulmonary nodules such as right lower lobe 0.4 cm nodule (image 30). Scattered calcified granulomas. Minor atelectasis an/or scarring near the bilateral bases. No consolidation or pleural effusion. Tracheobronchial tree: Trachea and central bronchi are patent. Mediastinum/Robinson: Borderline enlarged left hilar 1.6 x 0.9 cm lymph node (image 26). No mediastinal or right hilar lymphadenopathy. Right hilar calcified granulomas. Axilla and Supraclavicular Region: No axillary or supraclavicular adenopathy. Visualized thyroid gland is unremarkable. Cardiovascular: Cardiac chamber sizes are within normal limits. Nonspecific focal pericardial calcifications near the inferior left ventricular apex with suspicion of some adjacent left ventricular apical wall thinning which could be secondary to prior infarction an/or other remote pericardial insult (images 40 through 44). Minor aortic and branch vessel atherosclerotic plaque/calcifications. Coronary artery calcifications and/or stents in the left main and left anterior descending coronary arteries. Central pulmonary arteries are unremarkable. Upper Abdomen: Please see separate abdomen/pelvis CT report of this same date for evaluation of the visualized upper abdominal structures. Bones and Soft Tissue: Small L1 vertebral body sclerotic osseous focus suggestive of a bone island (image 60). Degenerative changes in the spine and right shoulder IMPRESSION: 1. Borderline enlarged nonspecific left hilar lymph node. Recommend follow-up chest CT to evaluate for stability interval of 2- 3 months would be reasonable. 2. A few scattered small nonspecific pulmonary nodules. Recommend attention to these areas on follow-up exam to evaluate for stability. 3. Mild emphysematous changes. 4. Atherosclerotic disease including coronary calcifications. 5. Nonspecific focal pericardial calcifications near the inferior left ventricular apex with questionable left ventricular apical wall thinning which could be secondary to prior infarction/or other remote pericardial insult. 6. Additional incidental findings as above. 7. Please see separate abdomen/pelvis CT report of this same date for evaluation of the visualized upper abdominal structures. MIN Collected: 02/19/2018 Status: F Source: [facility] 4:13 AM [facility] REPOSITORY TYPE CODE TESTS RESULT OUT OF REFERENCE UNITS RANGE LAB ALB 3.5-5.0 g/dL Albumin 3.7 Performed By: #### ALB, C7PMC, LDO, URICB, CBCDFC #### [facility] [address] [place] [address] [facility] [address] [place] [address] CHM7,IP,MG,CA Collected: 02/19/2018 Status: F Source: [facility] 4:13 AM [facility] REPOSITORY TYPE CODE TESTS RESULT OUT OF REFERENCE UNITS RANGE LAB BUN 7-22 mg/dL BUN 18 LAB NA 133-143 mmol/L Sodium 139 LAB K 3.5-5.0 mmol/L Potassium 4.2 LAB CL 98-108 mmol/L Chloride 100 LAB CO2 22-30 mmol/L Carbon Dioxide 30 LAB GLUC 70-99 mg/dL Glucose High 116 LAB CREA 0.70-1.30 mg/dL High Creatinine 1.58 LAB GAP 7-17 mmol/L Anion Gap 13 LAB BC BUN/CREA Ratio 11 LAB IP 2.2-4.6 mg/dL Inorg High Phosphate 5.2 LAB MG 1.6-2.6 mg/dL Magnesium 1.7 LAB CA 8.6-10.5 mg/dL Calcium High 11.8 LAB [facility] 278-305 mOsm/kg Osmolality 294 (Calc) LAB GFR >60 mL/min/1.73 Low sqM Est GFR,non 43 [place] Ze[place]ander LAB GFRA >60 mL/min/1.73 Low sqM Est GFR, 52 Performed By: #### ALB, C7PMC, LDO, URICB, CBCDFC #### [facility] [address] [place] [phone] [place] [address] [address] [place] [address] LD TOTAL Collected: 02/19/2018 Status: F Source: [facility] 4:13 [facility] REPOSITORY TYPE CODE TESTS RESULT OUT OF RANGE REFERENCE UNITS LAB LD 100-190 U/L High LD Total 269 Performed By: #### ALB, C7PMC, LDO, URICB, CBCDFC #### [facility] [address] [place] [address] [facility] [address] [place] [address] URIC ACID Collected: 02/19/2018 Status: F Source: [facility] 4:13 AM [facility] REPOSITORY TYPE CODE TESTS RESULT OUT OF RANGE REFERENCE UNITS LAB URIC 3.5-7.0 mg/dL Uric Acid 5.2 Performed By: #### ALB, C7PMC, LDO, URICB, CBCDFC #### [facility] [address] [place] [address] [facility] [address] [place], [place] [address] CBC,PLATELET,DIFFERENTIAL - CCL Collected: Status: F Source: [facility] 02/19/2018 4:13 AM [facility] REPOSITORY TYPE CODE TESTS RESULT OUT OF REFERENCE UNITS RANGE LAB WBC 4.23-9.07 K/uL WBC Count 3.18 Low LAB RBC 4.63-6.08 M/uL RBC Count 2.51 Low LAB HGB 13.7-17.5 g/dL Hemoglobin 7.4 Low LAB HCT 40.1-51.0 % Hematocrit 21.7 Low LAB MCV 79.0-92.2 fL Mean Cell 86.5 Volume LAB MCH 25.7-32.2 pg Mean Cell 29.5 Hgb LAB MCHC 32.3-36.5 g/dL Mean Cell 34.1 Hgb Conc LAB RDW 11.6-14.4 % RBC 14.6 High Distribution LAB PLT 163-337 K/uL Platelet 70 Low Count LAB MPV 9.4-12.4 fL Mean 10.5 Platelet Volume LAB NRBC 0.0-0.2 /100 WBC NUCLEATED 0.0 RBC LAB DTYPE Manual DIFFERENTIAL TYPE Differential LAB SEGS % NEUTROPHIL 24.8 SEGMENTED Result Comment: Toxic granulation present LAB LYM % LYMPHOCYTE % 44.7 LAB MON % MONOCYTE % 5.7 LAB EOS % EOSINOPHIL % 4.8 LAB BASO % BASOPHIL % 0.0 LAB BAND % BAND NEUTROPHIL % 3.8 LAB META % METAMYELOCYTE % 1.9 LAB MYEL % MYELOCYTE % 1.0 LAB LPHOMA 0 % LYMPHOMA CELLS 13.3 High LAB SBANS 1.78-5.3 K/uL Low 8 SEGS + 0.91 Bands,Absolute LAB ALYM 1.32-3.5 K/uL 7 Abs Lymph 1.42 LAB AMONO 0.30-0.8 K/uL Low 2 Abs Victoria 0.18 LAB AEOS <0.55 K/uL Abs Eos 0.15 LAB ABASO <0.09 K/uL Abs Baso 0.00 LAB AMETA 0.00 K/uL Abs Elkin 0.06 High LAB AMYEL 0.00 K/uL Abs Myelo 0.03 High LAB ALYOMA K/uL Abs Lymphoma 0.42 LAB PLTEST PLATELET ESTIMATE Automated platelet count confirmed by manual slide review. Performed By: #### ALB, C7PMC, LDO, URICB, CBCDFC #### [facility] [address] [place] [address] [facility] [address] [place] [address] [address] ABDOMEN/PELVIS WITH Observed: 02/18/2018 Status: F Source: [facility] CONTRAST 8:00 PM [facility] REPOSITORY EXAM: CT ABDOMEN/PELVIS WITH CONTRAST, 02/18/2018 17:12 PM COMPARISON: No prior studies available for comparison. CLINICAL INDICATIONS: Staging NHL; TECHNIQUE: Helical axial images of the abdomen and pelvis were performed from the lung bases through the ischial tuberosities following the administration of oral and intravenous contrast. Coronal 2 mm reconstructions were also made. CONTRAST: iohexol (OMNIPAQUE) 350 MG/ML injection 1-171 mL; Route of Administration: Intravenous; Dose: 90 mL. iohexol (OMNIPAQUE) 300 MG/ML vial 50 mL; Route of Administration: Oral; Dose: 50 mL. This patient underwent a CT examination using radiation exposure as low as reasonably achievable. CTDIvol and DLP radiation exposure values for each series were: Exposure: 1; Series: 2; Anatomy: Chest/Abdomen/Pelvis; Phantom: 32 cm; CTDIvol: 4; DLP: 137 Exposure: 2; Series: 2; Anatomy: Chest/Abdomen/Pelvis; Phantom: 32 cm; CTDIvol: 8; DLP: 446 Exposure: 3; Series: 3; Anatomy: Chest/Abdomen/Pelvis; Phantom: 16 cm; CTDIvol: 5; DLP: 73 The following accession numbers are related to this dose report {[id number]}: [id number] The dose indicators for CT are the volume Computed Tomography (CT) Dose Index (CTDIvol) and the Dose Length Product (DLP), and are measured in units of mGy and mGy-cm, respectively. These indicators are not patient dose, but values generated from the CT scanner acquisition factors and may substantially underestimate or overestimate the absorbed dose based on patient size and other factors. FINDINGS: Lung Bases: Please see dedicated chest CT scan of the same date for full description of the intra-thoracic contents. ABDOMEN Liver: Liver is normal in size and CT density. Focal fat along the falciform ligament. No suspicious focal lesions. Patent portal vein. Biliary/Gallbladder: The gallbladder is surgically absent. The biliary tree is nondilated. Spleen: Spleen is normal in size and CT density. Calcified granulomas. Pancreas: Pancreas is normal. There is no evidence of pancreatic mass or peripancreatic fluid. Kidneys: Kidneys are normal in size. There are no stones or hydronephrosis. Adrenals: Adrenal glands are unremarkable. Retroperitoneal/Vasculature: No retroperitoneal adenopathy is identified. Gastrointestinal/Mesentery: The bowel loops are non-dilated without wall thickening or mass. Colonic diverticulosis. PELVIS Bladder: The bladder is not distended. Genital: The prostate and seminal vesicles are unremarkable. Extensive aortic atherosclerosis without an Bony Structures: Visualized bony structures demonstrate severe degenerative changes of the lumbar spine with end plate sclerosis, osteophyte formation and disc space narrowing. IMPRESSION: 1. No evidence of lymphadenopathy in the abdomen or pelvis. Hepatic trauma grade: N/A Spleen trauma grade: N/A Kidney trauma grade: N/A SINUSES WITH Observed: 02/18/2018 Status: F Source: [facility] 5:50 PM [facility] REPOSITORY EXAM: CT SINUSES WITH CONTRAST, 02/18/2018 17:11 PM COMPARISON: No prior studies available for comparison. CLINICAL INDICATIONS: 72 years Male staging NHL; RELEVANT CLINICAL HISTORY: TECHNIQUE: A series of transaxial thin section multislice computerized tomographic images are obtained through the level of the paranasal sinuses after intravenous administration of contrast. Coronal, sagittal and axial reformats are provided. CONTRAST: iohexol (OMNIPAQUE) 350 MG/ML injection 1-171 mL; Route of Administration: Intravenous; Dose: 75 mL. FINDINGS: Nasal cavity: Clear. There is pneumatization of the middle turbinates bilaterally. Nasal septum is midline. Sinuses: Maxillary sinuses: Mild mucosal thickening in the maxillary sinuses bilaterally. Ethmoid sinuses: Well-developed and clear. Frontal sinuses: Well-developed and clear. Sphenoid sinus: Well-developed and clear. Drainage pathways: Ostiomeatal complexes: Patent without evidence of obstruction. Frontal recesses: Clear. Sphenoethmoidal recesses: Clear. Other Structures: Cribriform plate and fovea ethmoidalis are intact. There is partial opacification of the right mastoid tip with surrounding sclerosis, suggesting sequela of chronic mastoiditis. No enhancing lesions are seen within the facial soft tissues. The orbits appear unremarkable. No abnormal enhancement in the visualized anterior middle cranial fossa is appreciated, within limits of technique. IMPRESSION: Sinuses are generally clear, except for mild mucosal thickening in the maxillary sinuses. No air-fluid levels. Partial opacification of right mastoid tip with surrounding sclerosis, suggestive of chronic mastoiditis. QUANTITATIVE, PCR - Collected: 02/18/2018 Status: F Source: [facility] 7:33 AM [facility] REPOSITORY TYPE CODE TESTS RESULT OUT OF REFERENCE UNITS RANGE LAB HBDNA <10 IU/mL HBV <10 Quantitative , PCR Result Comment: This test was performed using a real time HBV PCR assay. The dynamic range for this assay is 10-1,000,000,000 (1.00-9.00 Logs). Results should be interpreted in conjuction with other clinical and laboratory findings. LAB HBDNAL <1.00 log unit HBV Quantitative, PCR (log) <1.00 Performed By: #### HBDNAB #### [address] [address] CBC,PLATELET,DIFFERENTIAL - CCL Collected: Status: X Source: [facility] 02/18/2018 7:02 AM [facility] REPOSITORY TYPE CODE TESTS RESULT OUT OF REFERENCE UNITS RANGE LAB CBCDFC This CBC,PLATELET result has ,DIFFERENTIA been L - CCL cancelled. Performed By: #### CBCDFC #### [facility] (DEFAULT) [address] [place] [address] HEMOGRAM (CBC AND Collected: 02/18/2018 Status: F Source: [facility] PLATELET) 4:51 AM [facility] REPOSITORY TYPE CODE TESTS RESULT OUT OF REFERENCE UNITS RANGE LAB WBC 4.23-9.07 K/uL Low WBC Count 3.05 LAB RBC 4.63-6.08 M/uL Low RBC Count 2.63 LAB HGB 13.7-17.5 g/dL Low Hemoglobin 7.7 LAB HCT 40.1-51.0 % Low Hematocrit 22.7 LAB MCV 79.0-92.2 fL Mean Cell Volume 86.3 LAB MCH 25.7-32.2 pg Mean Cell Hgb 29.3 LAB MCHC 32.3-36.5 g/dL Mean Cell Hgb Conc 33.9 LAB RDW 11.6-14.4 % RBC High Distribution 14.6 LAB PLT 163-337 K/uL Low Platelet Count 68 LAB MPV 9.4-12.4 fL Mean Platelet Volume 10.4 LAB NRBC 0.0-0.2 /100 WBC NUCLEATED RBC High 0.7 Performed By: #### HEMOGC, C7PMC, LDO, URICB, IDIFFC #### [facility] [address] [place] [address] [address] [place] [address] CHM7,IP,MG,CA Collected: 02/18/2018 Status: F Source: [facility] 4:51 AM [facility] REPOSITORY TYPE CODE TESTS RESULT OUT OF REFERENCE UNITS RANGE LAB BUN 7-22 mg/dL BUN 20 LAB NA 133-143 mmol/L Sodium 141 LAB K 3.5-5.0 mmol/L Potassium 4.3 LAB CL 98-108 mmol/L Chloride 103 LAB CO2 22-30 mmol/L Carbon Dioxide 27 LAB GLUC 70-99 mg/dL Glucose High 119 LAB CREA 0.70-1.30 mg/dL High Creatinine 1.43 LAB GAP 7-17 mmol/L Anion Gap 15 LAB BC BUN/CREA Ratio 14 LAB IP 2.2-4.6 mg/dL Inorg High Phosphate 5.0 LAB MG 1.6-2.6 mg/dL Magnesium 2.0 LAB CA 8.6-10.5 mg/dL Calcium High 11.3 LAB [facility] 278-305 mOsm/kg Osmolality 299 (Calc) LAB GFR >60 mL/min/1.73 Low sqM Est GFR,non 49 [place] Ze[place]ander LAB GFRA >60 mL/min/1.73 Low sqM Est GFR, 59 Performed By: #### HEMOGC, C7PMC, LDO, URICB, IDIFFC #### [facility] [address] [place] [address] [facility] [address] [place] [address] LD TOTAL Collected: 02/18/2018 Status: F Source: [facility] 4:51 AM [facility] REPOSITORY TYPE CODE TESTS RESULT OUT OF RANGE REFERENCE UNITS LAB LD 100-190 U/L High LD Total 311 Performed By: #### HEMOGC, C7PMC, LDO, URICB, IDIFFC #### [facility] [address] [place] [id number] [place] [address] [address] [place] [address] URIC ACID Collected: 02/18/2018 Status: F Source: [facility] 4:51 AM [facility] REPOSITORY TYPE CODE TESTS RESULT OUT OF RANGE REFERENCE UNITS LAB URIC 3.5-7.0 mg/dL Uric Acid 5.3 Performed By: #### HEMOGC, C7PMC, LDO, URICB, IDIFFC #### [facility] [address] [place] [address] [facility] [address] [place] [address] DIFFERENTIAL Collected: 02/18/2018 Status: F Source: [facility] 4:51 AM [facility] REPOSITORY TYPE CODE TESTS RESULT OUT OF REFERENCE UNITS RANGE LAB DTYPE Manual DIFFERENTIAL TYPE Differential LAB SEGS % NEUTROPHIL 24.8 SEGMENTED LAB LYM % LYMPHOCYTE 53.3 % LAB MON % MONOCYTE % 15.2 LAB EOS % EOSINOPHIL 1.9 % LAB BASO % BASOPHIL % 0.0 LAB BAND % BAND 0.0 NEUTROPHIL % LAB MYEL % MYELOCYTE % 1.0 LAB LPHOMA 0 % LYMPHOMA 3.8 High CELLS LAB SBANS 1.78-5.38 K/uL SEGS + 0.76 Low Bands,Absolute LAB ALYM 1.32-3.57 K/uL Abs Lymph 1.63 LAB AMONO 0.30-0.82 K/uL Abs Victoria 0.46 LAB AEOS <0.55 K/uL Abs Eos 0.06 LAB ABASO <0.09 K/uL Abs Baso 0.00 LAB AMYEL 0.00 K/uL Abs Myelo 0.03 High LAB ALYOMA K/uL Abs 0.12 Lymphoma LAB PLTEST PLATELET Automated ESTIMATE platelet count confirmed by manual slide review. Performed By: #### HEMOGC, C7PMC, LDO, URICB, IDIFFC #### [facility] [address] [place] [address] [address] [place] [address] CYTOGENETICS Observed: 02/17/2018 Status: F Source: [facility] 4:51 AM [facility] REPOSITORY Cytogenetics Report Patient Name: LEXI DICKINSON [facility]. Rec #: [id number] Submitting Physician: SUJIT EDWARD Clinical History Mantle Cell Lymphoma SPECIMEN(S) RECEIVED: A: Peripheral Blood KARYOTYPE See FISH report edin06/NAH:03/07/2018 Electronically Signed By Nica George, PhD, AB, FAC 03/07/2018 15:12:32 FISH REPORT Cytogenetics FISH Report Date Ordered: 02/18/2018 Status: Signed Out Date Reported: 03/03/2018 Laboratory Data Process: 1 Mitogen: CpG Duration: 72hrs Banding: FISH Media: RPMI 30min colcemid Number of interphases analyzed: 0 Karyotype/Interpretation Test not performed This is a peripheral blood sample from a patient with mantle cell lymphoma. A bone biopsy and a second peripheral blood sample were also received from this patient (see [id number] and [id number]); therefore, analyses were performed on the bone biopsy and the other peripheral blood sample, and not the current sample. Batsheva Edwards MD, PhD Performed By: #### CYTOG #### [facility] [address] [place] [address] CHM7,IP,MG,CA Collected: 02/17/2018 Status: F Source: [facility] 2:24 AM [facility] REPOSITORY TYPE CODE TESTS RESULT OUT OF REFERENCE UNITS RANGE LAB BUN 7-22 mg/dL BUN 17 LAB NA 133-143 mmol/L Sodium 139 LAB K 3.5-5.0 mmol/L Potassium 4.2 LAB CL 98-108 mmol/L Chloride 105 LAB CO2 22-30 mmol/L Carbon Dioxide 27 LAB GLUC 70-99 mg/dL Glucose High 117 LAB CREA 0.70-1.30 mg/dL Creatinine 1.28 LAB GAP 7-17 mmol/L Anion Gap 11 LAB BC BUN/CREA Ratio 13 LAB IP 2.2-4.6 mg/dL Inorg Phosphate 4.6 LAB MG 1.6-2.6 mg/dL Magnesium 1.8 LAB CA 8.6-10.5 mg/dL Calcium 10.4 LAB [facility] 278-305 mOsm/kg Osmolality 294 (Calc) LAB GFR >60 mL/min/1.73 Low sqM Est GFR,non 55 [place]ander LAB GFRA >60 mL/min/1.73 sqM Est GFR, >60 Performed By: #### C7PMC, LDO, URICB, CBCDFC, IAPTHD #### [facility] [address] [address] LD TOTAL Collected: 02/17/2018 Status: F Source: [facility] 2:24 AM [facility] REPOSITORY TYPE CODE TESTS RESULT OUT OF RANGE REFERENCE UNITS LAB LD 100-190 U/L High LD Total 319 Performed By: #### C7PMC, LDO, URICB, CBCDFC, IAPTHD #### [facility] [address] [address] URIC ACID Collected: 02/17/2018 Status: F Source: [facility] 2:24 AM [facility] REPOSITORY TYPE CODE TESTS RESULT OUT OF RANGE REFERENCE UNITS LAB URIC 3.5-7.0 mg/dL Uric Acid 5.3 Performed By: #### C7PMC, LDO, URICB, CBCDFC, IAPTHD #### [facility] [address] [place] [address] CBC,PLATELET,DIFFERENTIAL - CCL Collected: Status: F Source: [facility] 02/17/2018 2:24 AM [facility] REPOSITORY TYPE CODE TESTS RESULT OUT OF REFERENCE UNITS RANGE LAB WBC 4.23-9.07 K/uL WBC Count 2.89 Low LAB RBC 4.63-6.08 M/uL RBC Count 2.65 Low LAB HGB 13.7-17.5 g/dL Hemoglobin 7.8 Low LAB HCT 40.1-51.0 % Hematocrit 22.7 Low LAB MCV 79.0-92.2 fL Mean Cell 85.7 Volume LAB MCH 25.7-32.2 pg Mean Cell Hgb 29.4 LAB MCHC 32.3-36.5 g/dL Mean Cell Hgb 34.4 Conc LAB RDW 11.6-14.4 % RBC 14.6 High Distribution LAB PLT 163-337 K/uL Platelet Count 71 Low LAB MPV 9.4-12.4 fL Mean Platelet 10.3 Volume LAB NRBC 0.0-0.2 /100 WBC NUCLEATED RBC 0.7 High LAB DTYPE DIFFERENTIAL Manual TYPE Differential LAB SEGS % NEUTROPHIL 27.0 SEGMENTED LAB LYM % LYMPHOCYTE % 44.0 LAB MON % MONOCYTE % 8.0 LAB EOS % EOSINOPHIL % 3.0 LAB BASO % BASOPHIL % 3.0 LAB BAND % BAND 1.0 NEUTROPHIL % LAB META % METAMYELOCYTE 5.0 % LAB MYEL % MYELOCYTE % 4.0 LAB LPHOMA 0 % LYMPHOMA CELLS 5.0 High LAB SBANS 1.78-5.38 K/uL SEGS + 0.81 Low Bands,Absolute LAB ALYM 1.32-3.57 K/uL Abs Lymph 1.27 Low LAB AMONO 0.30-0.82 K/uL Abs Victoria 0.23 Low LAB AEOS <0.55 K/uL Abs Eos 0.09 LAB ABASO <0.09 K/uL Abs Baso 0.09 High LAB AMETA 0.00 K/uL Abs Elkin 0.14 High LAB AMYEL 0.00 K/uL Abs Myelo 0.12 High LAB ALYOMA K/uL Abs Lymphoma 0.14 LAB GIAPLT GIANT Present PLATELETS LAB WCOM WBC COMMENTS Left shifted granulocytes. Result Comment: Cytoplasmic toxic granulation is present. CIRCULATING ATYPICAL LYMHPOCYTES ARE PRESENT, CONSISTENT WITH HISTORY OF B NONHODGKINS LYMPHOMA. CORRELATION WITH FLOW CYTOMETRIC ANALYSIS IS RECOMMENDED. LAB PLTEST PLATELET Automated ESTIMATE platelet count confirmed by manual slide review. LAB RMORPH Red Cell RBC indices Morphology confirmed by manual smear review. Performed By: #### C7PMC, LDO, URICB, CBCDFC, IAPTHD #### [facility] [address] [place] [id number] [place] [address] [address] [place] [address] PATHOLOGIST DIFFERENTIAL Collected: 02/17/2018 Status: F Source: [facility] 2:24 AM [facility] REPOSITORY TYPE CODE TESTS RESULT OUT OF REFERENCE UNITS RANGE LAB DTRACK PDIFF Pathologist TRACKING CODE Differential LAB BRENDABPP James DIFFERENTIAL Puja Israel REVIEWED BY LAB PWCOM WBC Left COMMENTS shifted granulocytes. Result Comment: Cytoplasmic toxic granulation is present. CIRCULATING ATYPICAL LYMHPOCYTES ARE PRESENT, CONSISTENT WITH HISTORY OF B NONHODGKINS LYMPHOMA. CORRELATION WITH FLOW CYTOMETRIC ANALYSIS IS RECOMMENDED. Performed By: #### C7PMC, LDO, URICB, CBCDFC, IAPTHD #### [facility] [address] [place] [address] Observed: 02/17/2018 Status: F Source: [facility] TYPE AND CROSS 2:24 AM [facility] REPOSITORY ABO/RH(D): O POSITIVE ANTIBODY SCREEN: NEGATIVE Performed By: #### XM #### [facility] [address] [place] [address] CHM7,IP,MG,CA Collected: 02/16/2018 Status: F Source: [facility] 2:51 AM [facility] REPOSITORY TYPE CODE TESTS RESULT OUT OF REFERENCE UNITS RANGE LAB BUN 7-22 mg/dL BUN 21 LAB NA 133-143 mmol/L Sodium 140 LAB K 3.5-5.0 mmol/L Potassium 3.9 LAB CL 98-108 mmol/L Chloride 106 LAB CO2 22-30 mmol/L Carbon Dioxide 25 LAB GLUC 70-99 mg/dL Glucose High 123 LAB CREA 0.70-1.30 mg/dL High Creatinine 1.52 LAB GAP 7-17 mmol/L Anion Gap 13 LAB BC BUN/CREA Ratio 14 LAB IP 2.2-4.6 mg/dL Inorg Phosphate 4.5 LAB MG 1.6-2.6 mg/dL Magnesium 1.8 LAB CA 8.6-10.5 mg/dL Calcium 9.8 LAB [facility] 278-305 mOsm/kg Osmolality 297 (Calc) LAB GFR >60 mL/min/1.73 Low sqM Est GFR,non 45 [place] LAB GFRA >60 mL/min/1.73 Low sqM Est GFR, 55 Performed By: #### C7PMC, HFP, LDO, URICB, FIB, PTPTT, CBCDFC #### [facility] [address] [place] [address] [address] [place] [address] HEPATIC FUNCTION Collected: 02/16/2018 Status: F Source: [facility] PANEL 2:51 AM [facility] REPOSITORY TYPE CODE TESTS RESULT OUT OF REFERENCE UNITS RANGE LAB ALB 3.5-5.0 g/dL Low Albumin 3.3 LAB BILD <0.3 mg/dL Bilirubin Direct 0.1 LAB BILT <1.5 mg/dL Bilirubin Total 1.0 LAB ALP 32-126 U/L Alkaline Phosphatase 52 LAB ALT 10-52 U/L Low ALT 7 LAB AST 14-40 U/L AST 20 LAB TP 6.4-8.3 g/dL Low Total Protein 5.6 Performed By: #### C7PMC, HFP, LDO, URICB, FIB, PTPTT, CBCDFC #### [facility] [address] [place] [address] [address] [place] [address] LD TOTAL Collected: 02/16/2018 Status: F Source: [facility] 2:51 AM [facility] REPOSITORY TYPE CODE TESTS RESULT OUT OF RANGE REFERENCE UNITS LAB LD 100-190 U/L High LD Total 299 Performed By: #### C7PMC, HFP, LDO, URICB, FIB, PTPTT, CBCDFC #### [facility] [address] [place] [id number] [place] [address] [address] [place] [address] URIC ACID Collected: 02/16/2018 Status: F Source: [facility] 2:51 AM [facility] REPOSITORY TYPE CODE TESTS RESULT OUT OF RANGE REFERENCE UNITS LAB URIC 3.5-7.0 mg/dL Uric Acid 5.6 Performed By: #### C7PMC, HFP, LDO, URICB, FIB, PTPTT, CBCDFC #### [facility] [address] [place] [address] [facility] [address] [place] [address] FIBRINOGEN-CLOTTABLE Collected: Status: F Source: [facility] 02/16/2018 2:51 AM [facility] REPOSITORY TYPE CODE TESTS RESULT OUT OF RANGE REFERENCE UNITS LAB FIB 220-410 mg/dL 270 Fibrinogen-C lottable Performed By: #### C7PMC, HFP, LDO, URICB, FIB, PTPTT, CBCDFC #### [facility] [address] [place] [phone] [place] [address] [address] [place] [address] PT*PTT Collected: 02/16/2018 Status: F Source: [facility] 2:51 AM [facility] REPOSITORY TYPE CODE TESTS RESULT OUT OF RANGE REFERENCE UNITS LAB PT 11.9-14.2 sec PT 14.1 LAB INR 0.9-1.1 INR 1.1 LAB PTT 24.0-34.3 sec PTT 29.1 Performed By: #### C7PMC, HFP, LDO, URICB, FIB, PTPTT, CBCDFC #### [facility] [address] [place] [phone] [place] [address] [address] [place] [address] CBC,PLATELET,DIFFERENTIAL - CCL Collected: Status: F Source: [facility] 02/16/2018 2:51 AM [facility] REPOSITORY TYPE CODE TESTS RESULT OUT OF REFERENCE UNITS RANGE LAB WBC 4.23-9.07 K/uL WBC Count 2.81 Low LAB RBC 4.63-6.08 M/uL RBC Count 2.49 Low LAB HGB 13.7-17.5 g/dL Hemoglobin 7.4 Low LAB HCT 40.1-51.0 % Hematocrit 21.5 Low LAB MCV 79.0-92.2 fL Mean Cell 86.3 Volume LAB MCH 25.7-32.2 pg Mean Cell Hgb 29.7 LAB MCHC 32.3-36.5 g/dL Mean Cell Hgb 34.4 Conc LAB RDW 11.6-14.4 % RBC 14.6 High Distribution LAB PLT 163-337 K/uL Platelet Count 66 Low LAB MPV 9.4-12.4 fL Mean Platelet 10.5 Volume LAB NRBC 0.0-0.2 /100 WBC NUCLEATED RBC 0.0 LAB DTYPE DIFFERENTIAL Manual TYPE Differential LAB SEGS % NEUTROPHIL 21.6 SEGMENTED LAB LYM % LYMPHOCYTE % 49.6 LAB MON % MONOCYTE % 9.9 LAB EOS % EOSINOPHIL % 3.6 LAB BASO % BASOPHIL % 0.9 LAB BAND % BAND 7.2 NEUTROPHIL % LAB META % METAMYELOCYTE 1.8 % LAB MYEL % MYELOCYTE % 3.6 LAB PRO % PROMYELOCYTES 1.8 LAB SBANS 1.78-5.38 K/uL SEGS + 0.81 Low Bands,Absolute LAB ALYM 1.32-3.57 K/uL Abs Lymph 1.39 LAB AMONO 0.30-0.82 K/uL Abs Victoria 0.28 Low LAB AEOS <0.55 K/uL Abs Eos 0.10 LAB ABASO <0.09 K/uL Abs Baso 0.03 LAB AMETA 0.00 K/uL Abs Elkin 0.05 High LAB AMYEL 0.00 K/uL Abs Myelo 0.10 High LAB APRO 0.00 K/uL Abs Promyelo 0.05 High LAB PLTEST PLATELET ESTIMATE Automated platelet count confirmed by manual slide review. LAB RMORPH Red Cell RBC Morphology indices confirmed by manual smear review. Performed By: #### C7PMC, HFP, LDO, URICB, FIB, PTPTT, CBCDFC #### [facility] [place] [address] [place] [address] [address] [place] [address] ECHOCARDIOGRAM Observed: 02/15/2018 Status: F Source: [facility] 4:50 PM [facility] REPOSITORY Normal left ventricular size and systolic function with an EF of 62% on biplane imaging. Normal RV size and function. Mild biatrial enlargement. Moderate thickening of the aortic valve without aortic stenosis. No hemodynamically significant valve disease. Estimated right ventricular systolic pressure is 30 mmHg OCCULT BLOOD - Collected: 02/15/2018 Status: F Source: [facility] FECAL 2:07 PM [facility] REPOSITORY TYPE CODE TESTS RESULT OUT OF REFERENCE UNITS RANGE LAB OCBDF Negative Occult Negative Blood - Fecal Performed By: #### OCBDF #### [facility] [id number] [place] [address] [address] [place] [id number] BM IMMUNOPHENOTYPING Collected: Status: X Source: [facility] 02/15/2018 7:36 AM [facility] REPOSITORY TYPE CODE TESTS RESULT OUT OF REFERENCE UNITS RANGE LAB BMIPP BM Immunophenotyping This result has been cancelled. Performed By: #### BMIPP, P3J #### [facility] (DEFAULT) [address] [address] PACKAGE 3 Collected: 02/15/2018 Status: X Source: [facility] 7:36 AM [facility] REPOSITORY TYPE CODE TESTS RESULT OUT OF REFERENCE UNITS RANGE LAB P3J PACKAGE 3 This result has been cancelled. Performed By: #### BMIPP, P3J #### [facility] (DEFAULT) [address] [address] AMLMOL (MY-NGS,CEBPA,FLT3),BM Collected: Status: X Source: [facility] 02/15/2018 7:36 AM [facility] REPOSITORY TYPE CODE TESTS RESULT OUT OF REFERENCE UNITS RANGE LAB AMLMOM AMLMOL This (MY-NGS,CEBP result has A,FLT3),BM been cancelled. Performed By: #### AMLMOM #### [facility] (DEFAULT) [address] [address] CHM7,IP,MG,CA Collected: 02/15/2018 Status: F Source: [facility] 5:06 AM [facility] REPOSITORY TYPE CODE TESTS RESULT OUT OF REFERENCE UNITS RANGE LAB BUN 7-22 mg/dL BUN High 23 LAB NA 133-143 mmol/L Sodium 139 LAB K 3.5-5.0 mmol/L Potassium 4.1 LAB CL 98-108 mmol/L Chloride 105 LAB CO2 22-30 mmol/L Carbon Dioxide 27 LAB GLUC 70-99 mg/dL Glucose High 124 LAB CREA 0.70-1.30 mg/dL High Creatinine 1.44 LAB GAP 7-17 mmol/L Anion Gap 11 LAB BC BUN/CREA Ratio 16 LAB IP 2.2-4.6 mg/dL Inorg Phosphate 4.1 LAB MG 1.6-2.6 mg/dL Magnesium 1.8 LAB CA 8.6-10.5 mg/dL Calcium 9.6 LAB [facility] 278-305 mOsm/kg Osmolality 296 (Calc) LAB GFR >60 mL/min/1.73 Low sqM Est GFR,non 48 [place] LAB GFRA >60 mL/min/1.73 Low sqM Est GFR, 58 Performed By: #### C7PMC, LDO, URICB, CBCDFC, HSVG12, LMPNGB #### [facility] [address] [place] [address] [address] [place] [address] LD TOTAL Collected: 02/15/2018 Status: F Source: [facility] 5:06 AM [facility] REPOSITORY TYPE CODE TESTS RESULT OUT OF RANGE REFERENCE UNITS LAB LD 100-190 U/L High LD Total 319 Performed By: #### C7PMC, LDO, URICB, CBCDFC, HSVG12, LMPNGB #### [facility] [address] [place] [address] [address] [place] [address] URIC ACID Collected: 02/15/2018 Status: F Source: [facility] 5:06 AM [facility] REPOSITORY TYPE CODE TESTS RESULT OUT OF RANGE REFERENCE UNITS LAB URIC 3.5-7.0 mg/dL Uric Acid 5.9 Performed By: #### C7PMC, LDO, URICB, CBCDFC, HSVG12, LMPNGB #### [facility] [address] [place] [address] [address] [place] [address] CBC,PLATELET,DIFFERENTIAL - CCL Collected: Status: F Source: [facility] 02/15/2018 5:06 AM [facility] REPOSITORY TYPE CODE TESTS RESULT OUT OF REFERENCE UNITS RANGE LAB WBC 4.23-9.07 K/uL Low WBC Count 2.57 LAB RBC 4.63-6.08 M/uL Low RBC Count 2.23 LAB HGB 13.7-17.5 g/dL Low alert Hemoglobin 6.6 Result Comment: This result has been called to MORENA MUNGUIA by Manju De Leon on 02 15 2018 at 0710, and has been read back. LAB HCT 40.1-51.0 % Hematocrit 19.3 Low LAB MCV 79.0-92.2 fL Mean Cell 86.5 Volume LAB MCH 25.7-32.2 pg Mean Cell Hgb 29.6 LAB MCHC 32.3-36.5 g/dL Mean Cell Hgb 34.2 Conc LAB RDW 11.6-14.4 % RBC 14.7 High Distribution LAB PLT 163-337 K/uL Platelet Count 64 Low LAB MPV 9.4-12.4 fL Mean Platelet 10.1 Volume LAB NRBC 0.0-0.2 /100 WBC NUCLEATED RBC 0.0 LAB DTYPE DIFFERENTIAL Manual TYPE Differential LAB SEGS % NEUTROPHIL 26.5 SEGMENTED LAB LYM % LYMPHOCYTE % 48.7 LAB MON % MONOCYTE % 11.5 LAB EOS % EOSINOPHIL % 2.7 LAB BASO % BASOPHIL % 0.0 LAB BAND % BAND 5.3 NEUTROPHIL % LAB META % METAMYELOCYTE 4.4 % LAB MYEL % MYELOCYTE % 0.9 LAB SBANS 1.78-5.38 K/uL SEGS + 0.82 Low Bands,Absolute LAB ALYM 1.32-3.57 K/uL Abs Lymph 1.25 Low LAB AMONO 0.30-0.82 K/uL Abs Victoria 0.30 LAB AEOS <0.55 K/uL Abs Eos 0.07 LAB ABASO <0.09 K/uL Abs Baso 0.00 LAB AMETA 0.00 K/uL Abs Elkin 0.11 High LAB AMYEL 0.00 K/uL Abs Myelo 0.02 High LAB OVALO OVALOCYTES Present LAB POLYCH POLYCHROMASIA 1+ LAB PLTEST PLATELET Automated ESTIMATE platelet count confirmed by manual slide review. Performed By: #### C7PMC, LDO, URICB, CBCDFC, HSVG12, LMPNGB #### [facility] [address] [place] [address] HSV I&II IGG ANTIBODY Collected: 02/15/2018 Status: F Source: [facility] 5:06 [facility] REPOSITORY TYPE CODE TESTS RESULT OUT OF RANGE REFERENCE UNITS LAB HSVG1 Negative INDETERMINATE Abnormal HSV 1 IgG Antibody Result Comment: RECOMMEND THAT TEST BE REPEATED LAB HSVG2 Negative HSV 2 Negative IgG Antibody Performed By: #### C7PMC, LDO, URICB, CBCDFC, HSVG12, LMPNGB #### [facility] [address] [place] [address] LYMPHOID NEOPLASM MUTATION Observed: 02/15/2018 Status: F Source: [facility] PANEL WITH BTK/PLCG2,BLOOD 5:06 AM [facility] REPOSITORY Peripheral blood No pathogenic mutation detected in this panel. See Surgical Pathology report for methodology and interpretative comments. Summary report only above: see Pathology folder for this detailed report as well as methodology and assay limitations. With this test code, the ordering clinician is provided with an interpretation by a board-certified molecular pathologist integrating genetic results with relevant clinicopathologic findings and other laboratory testing. Jessica Gan MD,PhD Performed By: #### C7PMC, LDO, URICB, CBCDFC, HSVG12, LMPNGB #### [place] [address] SURGICAL PATHOLOGY Observed: 02/15/2018 Status: F Source: [facility] 5:06 AM [facility] REPOSITORY Molecular Pathology Report Patient Name: LEXI DICKINSON Med. Rec #: [id number] Submitting Physician: DEEPA BYNUM --- Clinical History --- LMPNGS ---Final Pathologic Diagnosis--- LYMPHOID NEOPLASM MUTATION PANEL Patient Name: LEXI DICKISNON, Order ID: [id number] Specimen Tested: peripheral blood Indication: B-cell lymphoproliferative disorder RESULTS AND INTERPRETATION No mutations detected. Among B-cell lymphoprolfierative disorder-associated changes, there were no mutations in the covered areas of BIRC3, MYD88, NOTCH1, POT1, SF3B1 or in TP53. SEQUENCE ALTERATIONS DETECTED None REGIONS WITH LOW COVERAGE The following amplicons demonstrated low coverage (please see test details for more information): PTPR30, PTPR44, DNMT09, MFT325, FBXW24, CARD21, CARD38, AOI626, QTP348, TYT621, PTEN02, BLNK22, BIRC14, PLCG09, KTB573, GTB861, XMS405, BCOR23, BCRL34 The base positions and codons corresponding to these amplicons can be provided upon request. TEST CHARACTERISTICS METHODOLOGY: Genomic DNA was isolated following immunoaffinity purification of CD19+ B cells from peripheral blood (using RoboSepS) and profiled using a PCR-based Ampliseq library using the [employer] and [employer] sequencing platforms. Analysis of the neoplasm-associated variants in the 50 genes below utilized hg19, [employer] and the [employer] platform, with the pathologist final interpretation provided above integrating available clinicopathologic features and other laboratory testing. Panel detects mutations associated with lymphoproliferative disorders interrogating the full coding sequence of ASXL1, BIRC3, BLNK, B2M, BCOR, BCORL1, BTK, CARD11, CXCR4, DNMT3A, FBXW7, GRB2, MEF2B, NOTCH1, NOTCH2, PLCG2, POT1, PTEN, PTPRC (CD45), SAMHD1, SF3B1, SYK, TET2, and TP53 and mutation hotspots in AKT1, BRAF, CD79A, CD79B, CREBBP, EZH2, IDH1, IDH2, KIT, KLF2, KRAS, MAP2K1, MYD88, NRAS, PIK3CA, PIK3CD, PIK3CG, PRKCB, RAC1, RHOA, RPS15, STAT3, STAT5A, STAT5B, VAV1 and XPO1. LIMITATIONS: Detection sensitivity is approximately 2-4% for missense mutations and 5-10% for insertions/deletions. High-confidence variant calls may be reported at lower coverage depth or variant allele fraction (VAF), particularly the mutations hotspots in BTK and PLCG2 which are interrogated down to 0.5% VAF. Synonymous or well-characterized non-synonymous SNPs are not reported. A variant present below the sensitivity cutoff may not be detected. Detection sensitivity can be affected by B-cell antigen/CD19 loss, few B cells in sample, sequence polymorphisms under the primers, PCR inhibitors or poor quality DNA template. This test was developed and its performance determined by the [facility] of the [facility] at [address] [place] [address] under the medical direction of James Israel MD, PhD. It has not been cleared or approved by the U.S. Food and Drug Administrations. Since FDA (U.S. Food and Drug Administration) is not required for clinical use of this test, this laboratory has established and validated the test's accuracy and precision, pursuant to the requirement of CLIA '88. This report was produced using software licensed by [employer]. [employer] software is designed to be used in clinical applications solely as a tool to enhance medical utility and improve operational efficiency. The use of [employer] software is not a substitute for medical judgment and [employer] in no way holds itself out as having or providing independent medical judgment or diagnostic services. [employer] is not liable with respect to any treatment or diagnosis made in connection with this report. [id number]:02/20/2018 Electronically Signed By Jessica Gan MD, PhD 02/20/2018 17:19:39 Professional Interpretation performed at location: ---MICROSCOPIC:--- NA ---SPECIMEN(S) RECEIVED:--- MT A: Peripheral Blood - Polaris ---GROSS DESCRIPTION:--- Purple top peripheral blood sample received at [facility] labeled with patient identifiers and draw date. Gross description by: Not Entered Performed By: #### SURGP #### [facility] [address] [place] [address] [facility] [address] [place], [place] [address] SURGICAL PATHOLOGY Observed: 02/14/2018 Status: F Source: [facility] 3:47 PM [facility] REPOSITORY Surgical Pathology Report Patient Name: LEXI DICKINSON Med. Rec #: [id number] Submitting Physician: NOLAN AYON --- Clinical History --- CLL. ADDENDA: Addendum added: 03/24/2018 ---Final Pathologic Diagnosis--- A. 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 - Hypercellular for age (90%) with residual trilineage hematopoiesis and granulomas. Comment: The patient history of pancytopenia with increased blasts in the peripheral blood is noted. The current specimen shows no increased blasts by morphology and by flow; however it shows diffuse sheets of small mature lymphocytes with irregular nuclear contour compromising 80% of the bone marrow cellularity. Flow cytometry for the peripheral blood showed [place] restricted B-cell population coexpressing CD5, CD19, CD43 (21%), CD38, CD81 and CD9 with no CD22 or FMC7 expression. Immunostains show the lymphoma cells are in approximately 90% cellularity and positive for CD5, CD20, and BCL1, but negative for CD23, and CD10, consistent with mantle cell lymphoma. The MPO shows less than 5% cellularity. The lymphoma cells are also negative for CD34, CD117, TdT, and BCL6. CD3 reveals a fewer background T-cells. The special stains for AFB and GMS are negative. The findings are consistent of mantle cell lymphoma. Correlation with cytogenetics for CCND1 rearrangement is recommended. The preliminary/final report has been given to Dr. Nora Howard by Dr. Israel on February 162017. Immunohistochemical stains were performed in addition to flow cytometry in specimen A block A1 to further characterize the lymphoid cells in the context of cell morphology and tissue architecture, since discrepancy between flow cytometric analysis and morphology can occur due to sampling bias, preferential loss of targeted cells, or hemodilution. All controls show appropriate reactivity. All immunohistochemistry, in situ hybridization, and histochemical tests were developed by and are performed at the [facility], [address] [place] [address]. All tests reported here, except those addressing HER2 overexpression as a predictive marker, have not been cleared or approved by the FDA. The laboratory is regulated under CLIA as qualified to perform high-complexity testing. The tests are used for clinical purposes. They should not be regarded as investigational or for research. [email or web address]:02/17/2018 Electronically Signed By James Israel MD 02/17/2018 12:07:52 Professional Interpretation performed at location: [facility] [place] [address] ---Addendum Report--- Addendum Date Ordered: 03/24/2018 Status: Signed Out Date Complete: 03/24/2018 Date Reported: 03/24/2018 Text: The CD68 was also performed and lymphoma cells are negative for CD68 but reactive background monocytes.The final diagnosis is not changed. All controls show appropriate reactivity. All immunohistochemistry, in situ hybridization, and histochemical tests were developed by and are performed at the [facility], [address] [place] [address]. All tests reported here, except those addressing HER2 overexpression as a predictive marker, have not been cleared by or approved by the US Food and Drug Administration (FDA). The laboratory is regulated under CLIA as qualified to perform high-complexity testing. The tests are used for clinical purposes. They should not be regarded as investigational or for research. {Not Entered} James Israel MD ---MICROSCOPIC:--- BONE MARROW REPORT The following specimens were interpreted to arrive at the above diagnosis: peripheral blood smear, bone marrow aspirate, decalcified trephine biopsy, and iron stain. CBC data and smear review (200 cells): WBC: 2.65 x K/uL; Hgb: 7.3 g/dL; Hct: 21.5%; MCV: 87.0 fl; RDW: 14.8%; Plt: 72 K/uL Manual differential: neutrophils 30.8%, lymphocytes 51.4%, monocytes 4.7%, eosinophils 2.8%, basophils 0.0%. Blood smear findings: Review of the blood smear shows leukopenia with unremarkable morphology of the white blood cells. There is normocytic anemia with anisopoikilocytosis, slight polychromasia (+1), rare tear drop cells, elliptocytes, and red cell fragments. There is thrombocytopenia with predominantly unremarkable morphology of the platelets. Rare circulating lymphoma cells with multiple incipient nucleoli (5%). Aspirate smear/touch preparation quality: Spicules are absent, and the stain is of good quality. Bone marrow aspirate smear/touch preparation differential (500 cells): Blasts: 0% Promyelocytes: 0% Myelocytes: 2% Metamyelocytes: 1% Bands/neutrophils: 2% Lymphocytes: 87% Monocytes: 4% Eosinophils: 0% Basophils: 0% Erythroid: 5% Plasma cells: 0% M:E Ratio: The myeloid to erythroid ratio is 1 to 1. Erythropoiesis: Rarely noted with unremarkable morphology. Granulopoiesis: Rarely noted with unremarkable morphology. Megakaryocytes: Megakaryocytes are rare. Lymphocytes/plasma cells: The lymphocytes are increased in number with high N/C ratio, rounded to slightly irregular nuclear contours, clumped chromatin and scat cytoplasm. Rare larger cells with prominent nucleoli and abundance cytoplasm are seen. Plasma cells are unremarkable. Iron stain: Iron staining is absent (aspicular specimen). No ring sideroblasts are seen. The iron control shows appropriate reactivity. Biopsy findings: The bone marrow shows a cellularity of 90% and shows decreased trilineage hematopoiesis and diffuse sheets of small mature lymphocytes (80% of cellularity). No proliferation centers are noted. Granulomas with multinucleated giant cells are also noted. Flow cytometric analysis (marrow aspirate): Flow cytometric analysis for bone marrow was not submitted. See flow on the peripheral blood in a separate report. Cytogenetics/FISH: Performed and resulted in a separate report ([id number]). The above report complies, in slightly modified form, with the guidelines of the [employer] for the reporting of cancer specimens. ---SPECIMEN(S) RECEIVED:--- SBX A: Bone marrow, BX ---GROSS DESCRIPTION:--- The specimen is received in one properly labeled container with the patient's name and accession number. A. The specimen is designated BM BX R and consists of one fragment of clark, firm cylindrical tissue that measures 2.0 cm in length x 0.3 cm in average diameter with an associated red blood clot measuring 0.5 x 0.3 x 0.2 cm. TE 1 Note: The specimen will be ready after decalcification. Lab Use Only: JobID [id number] Gross description by: Elly Portillo Performed By: #### SURGP #### [facility] [address] [place] [address] [address] [place] [address] CYTOGENETICS Observed: 02/14/2018 Status: F Source: [facility] 2:03 PM [facility] REPOSITORY Cytogenetics Report Patient Name: LEXI DICKINSON [facility] Rec #: [id number] Submitting Physician: NOLAN AYON Clinical History Mantle Cell Lymphoma SPECIMEN(S) RECEIVED: A: Peripheral Blood KARYOTYPE 45,XY,-1,add(3)(p25),ins(4;3)(q31;q12q27),+7,-8,add(9)(p13),t(11;14)(q13.3; q32.3),loan(13;14)(q10;q10)c,i(17)(q10),add(18)(q21),+r[5]/45,XY,loan(13;14)( q10;q10)c[13]/nonclonal[2] INTERPRETATION This is a peripheral blood sample from a patient with a diagnosis of mantle cell lymphoma. The sample was cultured unstimulated for 24 hours. Cytogenetic analysis of this sample showed an abnormal clone of cells with monosomy for chromosome 1, an abnormal chromosomes 3, an insertion of most of chromosome 3q into a chromosome 4,, trisomy for chromosome 7, monosomy for chromosome 8, an abnormal chromosome 9, a translocation between chromosomes 11 and 14, a Robertsonian translocation between chromosomes 13 and 14, an isochromosome 17 which resulted in loss of the TP53 gene, an abnormal chromosome 18 and the addition of a ring chromosome. In addition, the Robertsonian translocation, which is a recurring abnormality in the normal population and is most likely a constitutional aberration, was present in the remaining cells analyzed. Of particular importance in this karyotype is the translocation between chromosomes 11 and 14. This is the typical translocation found in mantle cell lymphoma, but has also been reported in follicular and other B-cell leukemias and lymphomas including multiple myeloma. It results in juxtaposition of the immunoglobulin heavy chain gene from chromosome 14 and the CCND1 gene on chromosome 11. As a result of the translocation, the CCND1 gene is overexpressed. Complex karyotypes and loss of the TP53 gene, as seen in this patient, are associated with a poor prognosis. These results are consistent with the loss of TP53 seen in the FISH analysis on this sample. Preliminary results were given to Sr. Berlin on 02/17/18 at 10:30 a.m. by Isha Felton and to Dr. Edward at 5:07 p.m. by Evelyn Chambers. Reference: Denisse et al. Cancer Sci 96:77-82, 2004. Luis Carlos WATSON. t(11;14)(q13;q32). Salida Amalia Cytogenet Oncol Haematol. December 1997. URL : [email or web address] Due to the limitations of this analysis, these results do not rule out the presence of subtle chromosomal abnormalities or additional abnormalities that could exist in a low proportion of cells. [id number]:03/02/2018 Electronically Signed By Batsheva Edwards MD, PhD 03/02/2018 14:38:31 LABORATORY DATA Band Level: 400 Process: 1 Mitogen: none Duration: 24hrs Banding: GTW Media: BMC 30min colcemid Number of cells: 20 Chromosome Count Analysis <=42 2 44 2 45 14 46 2 Total 20 Total number of cells karyotyped: 20 FISH REPORT Cytogenetics FISH Report Date Ordered: 02/14/2018 Status: Signed Out Date Reported: 02/16/2018 Laboratory Data Process: 1 Mitogen: none Duration: 24hrs Banding: FISH Media: BMC 30min colcemid Number of interphases analyzed: 0 Karyotype/Interpretation Test Not Performed This is a peripheral blood sample from a patient referred for AML. A bone biopsy was also received from this patient ([id number]); therefore, analysis will be performed on the bone biopsy not the peripheral blood. Batsheva Edwards MD, PhD Addendum Date Ordered: 02/21/2018 Status: Pending Date Reported: Performed By: #### CYTOG #### [facility] [address] [place] [address] CYTOGENETICS Observed: 02/14/2018 Status: F Source: [facility] 2:03 PM [facility] REPOSITORY Cytogenetics Report Patient Name: LEXI DICKINSON [facility] Rec #: [id number] Submitting Physician: NOLAN AYON Clinical History Mantle Cell Lymphoma SPECIMEN(S) RECEIVED: A: Peripheral Blood KARYOTYPE 45,XY,-1,add(3)(p25),ins(4;3)(q31;q12q27),+7,-8,add(9)(p13),t(11;14)(q13.3; q32.3),loan(13;14)(q10;q10)c,i(17)(q10),add(18)(q21),+r[5]/45,XY,loan(13;14)( q10;q10)c[13]/nonclonal[2] INTERPRETATION This is a peripheral blood sample from a patient with a diagnosis of mantle cell lymphoma. The sample was cultured unstimulated for 24 hours. Cytogenetic analysis of this sample showed an abnormal clone of cells with monosomy for chromosome 1, an abnormal chromosomes 3, an insertion of most of chromosome 3q into a chromosome 4,, trisomy for chromosome 7, monosomy for chromosome 8, an abnormal chromosome 9, a translocation between chromosomes 11 and 14, a Robertsonian translocation between chromosomes 13 and 14, an isochromosome 17 which resulted in loss of the TP53 gene, an abnormal chromosome 18 and the addition of a ring chromosome. In addition, the Robertsonian translocation, which is a recurring abnormality in the normal population and is most likely a constitutional aberration, was present in the remaining cells analyzed. Of particular importance in this karyotype is the translocation between chromosomes 11 and 14. This is the typical translocation found in mantle cell lymphoma, but has also been reported in follicular and other B-cell leukemias and lymphomas including multiple myeloma. It results in juxtaposition of the immunoglobulin heavy chain gene from chromosome 14 and the CCND1 gene on chromosome 11. As a result of the translocation, the CCND1 gene is overexpressed. Complex karyotypes and loss of the TP53 gene, as seen in this patient, are associated with a poor prognosis. These results are consistent with the loss of TP53 seen in the FISH analysis on this sample. Preliminary results were given to Sr. Bower on 02/17/18 at 10:30 a.m. by Isha Felton and to Dr. Edward at 5:07 p.m. by Evelyn Chambers. Reference: Seflynnchi et al. Cancer Sci 96:77-82, 2004. Luis Carlos WATSON. t(11;14)(q13;q32). Salida Amalia Cytogenet Oncol Haematol. December 1997. URL : [email or web address] Due to the limitations of this analysis, these results do not rule out the presence of subtle chromosomal abnormalities or additional abnormalities that could exist in a low proportion of cells. [id number]:03/02/2018 Electronically Signed By Batsheva Edwards MD, PhD 03/02/2018 14:38:31 LABORATORY DATA Band Level: 400 Process: 1 Mitogen: none Duration: 24hrs Banding: GTW Media: BMC 30min colcemid Number of cells: 20 Chromosome Count Analysis <=42 2 44 2 45 14 46 2 Total 20 Total number of cells karyotyped: 20 FISH REPORT Cytogenetics FISH Report Date Ordered: 02/14/2018 Status: Signed Out Date Reported: 02/16/2018 Laboratory Data Process: 1 Mitogen: none Duration: 24hrs Banding: FISH Media: BMC 30min colcemid Number of interphases analyzed: 0 Karyotype/Interpretation Test Not Performed This is a peripheral blood sample from a patient referred for AML. A bone biopsy was also received from this patient ([id number]); therefore, analysis will be performed on the bone biopsy not the peripheral blood. Batsheva Edwards MD, PhD Addendum Date Ordered: 02/21/2018 Status: Pending Date Reported: Performed By: #### CYTOG #### [facility] [address] [place] [id number] [place] [address] [address] [place] [id number] PACKAGE 3 Collected: 02/14/2018 Status: F Source: [facility] 1:30 PM [facility] REPOSITORY TYPE CODE TESTS RESULT OUT OF REFERENCE UNITS RANGE LAB BMBXJ BM Biopsy Doctor to - CHRI interpret test LAB BMFEJ BM Iron Doctor to Stain interpret test Performed By: #### P3J #### [facility] [address] [place] [address] XR CHEST PA AND Observed: 02/14/2018 Status: F Source: [facility] LATERAL 11:48 AM [facility] REPOSITORY EXAM: XR CHEST PA AND LATERAL, 02/14/2018 10:39 AM COMPARISON: No prior studies available for comparison. CLINICAL INDICATIONS: Baseline pre-chemotherapy RELEVANT CLINICAL HISTORY: On admission.; FINDINGS: (Adequate technique) Implanted Devices: None Chest Wall: Normal Robinson: Normal Mediastinum: Normal Pleural Spaces: No pleural effusion. No pneumothorax. Lungs: Clear, without mass, interstitial disease, or consolidation. Cardiac Silhouette: Normal, without overall or specific chamber enlargement, or abnormal calcification Thoracic Aorta: Slight tortuosity but otherwise unremarkable contour. Pulmonary Vessels: Normal, without PVH IMPRESSION: No acute cardiopulmonary findings. I personally viewed and interpreted these images and I have reviewed and approved this report. LALITY, URINE - Collected: 02/14/2018 Status: F Source: [facility] RANDOM 7:44 AM [facility] REPOSITORY TYPE CODE TESTS RESULT OUT OF REFERENCE UNITS RANGE LAB UOSM 300-900 mOsm/kg Urine Osmolality 676 Performed By: #### UOSMR, UCRER, ULYTR, UREAR #### [facility] [address] [place] [address] [address] [place] [address] CREATININE, URINE - Collected: 02/14/2018 Status: F Source: [facility] RANDOM 7:44 AM [facility] REPOSITORY TYPE CODE TESTS RESULT OUT OF RANGE REFERENCE UNITS LAB CREU1 mg/dL 108.00 Creatinine, urine mg/dL Result Comment: The reference range has not been established for random urine specimens. The test result should be integrated into the clinical context for interpretation. Performed By: #### UOSMR, UCRER, ULYTR, UREAR #### [facility] [address] [place] [address] [address] [place] [address] LYTES (NA,K,CL), URINE Collected: 02/14/2018 Status: F Source: [facility] - RANDOM 7:44 AM [facility] REPOSITORY TYPE CODE TESTS RESULT OUT OF REFERENCE UNITS RANGE LAB NAU1 mmol/L URINE SODIUM 175 Result Comment: The reference range has not been established for random urine specimens. The test result should be integrated into the clinical context for interpretation. LAB KU1 mmol/L URINE POTASSIUM 38.1 Result Comment: The reference range has not been established for random urine specimens. The test result should be integrated into the clinical context for interpretation. LAB CLU1 mmol/L URINE CHLORIDE 187 Result Comment: The reference range has not been established for random urine specimens. The test result should be integrated into the clinical context for interpretation. Performed By: #### UOSMR, UCRER, ULYTR, UREAR #### [facility] [address] [place] [address] [address] [place] [id number] URINE UREA NITROGEN - Collected: 02/14/2018 Status: F Source: [facility] RANDOM 7:44 AM [facility] REPOSITORY TYPE CODE TESTS RESULT OUT OF REFERENCE UNITS RANGE LAB UREA1 mg/dL Urine Urea 707 Nitrogen Performed By: #### UOSMR, UCRER, ULYTR, UREAR #### [facility] [address] [place] [address] [address] [place] [address] URINALYSIS Collected: 02/14/2018 Status: F Source: [facility] 7:44 AM [facility] REPOSITORY TYPE CODE TESTS RESULT OUT OF RANGE REFERENCE UNITS LAB 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 Clear Appearance Urine LAB SPGR 1.001-1.035 Specific >=1.030 [place] urine LAB UGL Negative mg/dL Glucose Negative Urine LAB UKET Negative Ketones Negative Urine LAB UBLD Negative Blood Negative Urine LAB UPH 5.0-7.0 pH Urine 6.0 LAB UPR Negative mg/dL Protein Negative Urine LAB UNTR Negative Nitrites Negative Urine LAB ULEU Negative Negative Leukocyte Esterase LAB COLR Yellow Color Yellow LAB UURO <2.0 EU/dL 1.0 Urobilinogen urine LAB UWBC 0-5 /HPF WBC 0-5 Urine LAB URBC 0-2 /HPF RBC 0-2 Urine LAB BACT Absent Bacteria Absent LAB UCOM COMMENT None URINE LAB EPIS /HPF Squamous None Epithelial LAB UCRYS Negative CRYSTALS Abnormal URINE Unidentified Crystals Result Comment: Ca Oxalate Crystals Performed By: #### URIN #### [place] [address] Observed: 02/14/2018 Status: F Source: [facility] TYPE AND CROSS 5:52 AM [facility] REPOSITORY ABO/RH(D): O POSITIVE ANTIBODY SCREEN: NEGATIVE UNIT NUMBER: [id number] BLOOD COMPONENT TYPE: Red Cell,Leukoreduced,[id number] STATUS OF UNIT: Issued, Final TRANSFUSION STATUS: OK TO TRANSFUSE CROSSMATCH RESULT: Electronically Compatible Performed By: #### XM #### [place] [address] FIBRINOGEN-CLOTTABLE Collected: Status: F Source: [facility] 02/14/2018 5:27 AM [facility] REPOSITORY TYPE CODE TESTS RESULT OUT OF RANGE REFERENCE UNITS LAB FIB 220-410 mg/dL 270 Fibrinogen-C lottable Performed By: #### FIB, PTPTT, CA, CHM6, HFP, IPB, LDO, MGO, URICB, CBCDFC, CMVG, HEP3B, HSVG12, AMLMOB #### [address] [place] [address] PT*PTT Collected: 02/14/2018 Status: F Source: [facility] 5:27 AM [facility] REPOSITORY TYPE CODE TESTS RESULT OUT OF RANGE REFERENCE UNITS LAB PT 11.9-14.2 sec PT 13.9 LAB INR 0.9-1.1 INR 1.1 LAB PTT 24.0-34.3 sec PTT 28.2 Performed By: #### FIB, PTPTT, CA, CHM6, HFP, IPB, LDO, MGO, URICB, CBCDFC, CMVG, HEP3B, HSVG12, AMLMOB #### [facility] [address] [place] [address] [address] [place] [address] CALCIUM Collected: 02/14/2018 Status: F Source: [facility] 5:27 AM [facility] REPOSITORY TYPE CODE TESTS RESULT OUT OF REFERENCE UNITS RANGE LAB CA 8.6-10.5 mg/dL Calcium 9.9 Performed By: #### FIB, PTPTT, CA, CHM6, HFP, IPB, LDO, MGO, URICB, CBCDFC, CMVG, HEP3B, HSVG12, AMLMOB #### [facility] [address] [place] [address] [address] [place] [address] CHEM 6 Collected: 02/14/2018 Status: F Source: [facility] 5:27 AM [facility] REPOSITORY TYPE CODE TESTS RESULT OUT OF REFERENCE UNITS RANGE LAB BUN 7-22 mg/dL BUN High 25 LAB NA 133-143 mmol/L Sodium 140 LAB K 3.5-5.0 mmol/L Potassium 3.9 LAB CL 98-108 mmol/L Chloride 106 LAB CO2 22-30 mmol/L Carbon Dioxide 23 LAB CREA 0.70-1.30 mg/dL High Creatinine 1.44 LAB GAP 7-17 mmol/L Anion Gap 15 LAB BC BUN/CREA Ratio 17 LAB GFR >60 mL/min/1.73 Low sqM Est GFR,non 48 [place] Ze[place]ander LAB GFRA >60 mL/min/1.73 Low sqM Est GFR, 58 Performed By: #### FIB, PTPTT, CA, CHM6, HFP, IPB, LDO, MGO, URICB, CBCDFC, CMVG, HEP3B, HSVG12, AMLMOB #### [facility] [address] [place] [id number] [place] [address] [address] [place] [id number] HEPATIC FUNCTION Collected: 02/14/2018 Status: F Source: [facility] 5:27 AM [facility] REPOSITORY TYPE CODE TESTS RESULT OUT OF REFERENCE UNITS RANGE LAB ALB 3.5-5.0 g/dL Albumin 3.8 LAB BILD <0.3 mg/dL Bilirubin Direct 0.1 LAB BILT <1.5 mg/dL Bilirubin Total 0.9 LAB ALP 32-126 U/L Alkaline Phosphatase 60 LAB ALT 10-52 U/L Low ALT 5 LAB AST 14-40 U/L AST 21 LAB TP 6.4-8.3 g/dL Low Total Protein 6.2 Performed By: #### FIB, PTPTT, CA, CHM6, HFP, IPB, LDO, MGO, URICB, CBCDFC, CMVG, HEP3B, HSVG12, AMLMOB #### [facility] [address] [place] [address] [address] INORGANIC PHOSPHATE Collected: 02/14/2018 Status: F Source: [facility] 5:27 AM [facility] REPOSITORY TYPE CODE TESTS RESULT OUT OF REFERENCE UNITS RANGE LAB IP 2.2-4.6 mg/dL Inorg Phosphate 4.3 Performed By: #### FIB, PTPTT, CA, CHM6, HFP, IPB, LDO, MGO, URICB, CBCDFC, CMVG, HEP3B, HSVG12, AMLMOB #### [facility] [address] [place] [address] [address] [place] [address] LD TOTAL Collected: 02/14/2018 Status: F Source: [facility] 5:27 AM [facility] REPOSITORY TYPE CODE TESTS RESULT OUT OF RANGE REFERENCE UNITS LAB LD 100-190 U/L High LD Total 266 Performed By: #### FIB, PTPTT, CA, CHM6, HFP, IPB, LDO, MGO, URICB, CBCDFC, CMVG, HEP3B, HSVG12, AMLMOB #### [facility] [address] [place] [address] [facility] [address] [place] [address] MAGNESIUM Collected: 02/14/2018 Status: F Source: [facility] 5:27 AM [facility] REPOSITORY TYPE CODE TESTS RESULT OUT OF REFERENCE UNITS RANGE LAB MG 1.6-2.6 mg/dL Low Magnesium 1.4 Performed By: #### FIB, PTPTT, CA, CHM6, HFP, IPB, LDO, MGO, URICB, CBCDFC, CMVG, HEP3B, HSVG12, AMLMOB #### [facility] [address] [place] [id number] [place] [address] [address] [place] [address] URIC ACID Collected: 02/14/2018 Status: F Source: [facility] 5:27 AM [facility] REPOSITORY TYPE CODE TESTS RESULT OUT OF RANGE REFERENCE UNITS LAB URIC 3.5-7.0 mg/dL High Uric Acid 7.3 Performed By: #### FIB, PTPTT, CA, CHM6, HFP, IPB, LDO, MGO, URICB, CBCDFC, CMVG, HEP3B, HSVG12, AMLMOB #### [facility] [address] [place] [id number] [place] [address] [address] [place] [address] CBC,PLATELET,DIFFERENTIAL - CCL Collected: Status: F Source: [facility] 02/14/2018 5:27 AM [facility] REPOSITORY TYPE CODE TESTS RESULT OUT OF REFERENCE UNITS RANGE LAB WBC 4.23-9.07 K/uL Low WBC Count 2.65 LAB RBC 4.63-6.08 M/uL Low RBC Count 2.47 LAB HGB 13.7-17.5 g/dL Low Hemoglobin 7.3 LAB HCT 40.1-51.0 % Low Hematocrit 21.5 LAB MCV 79.0-92.2 fL Mean Cell Volume 87.0 LAB MCH 25.7-32.2 pg Mean Cell Hgb 29.6 LAB MCHC 32.3-36.5 g/dL Mean Cell Hgb Conc 34.0 LAB RDW 11.6-14.4 % RBC High Distribution 14.8 LAB PLT 163-337 K/uL Low Platelet Count 72 Result Comment: Platelet clumps noted on smear. Reported instrument value is acceptable LAB MPV 9.4-12.4 fL Mean Platelet NOT Volume MEASURED LAB NRBC 0.0-0.2 /100 WBC NUCLEATED RBC 0.0 LAB DTYPE DIFFERENTIAL Manual TYPE Differential LAB SEGS % NEUTROPHIL 30.8 SEGMENTED LAB LYM % LYMPHOCYTE % 51.4 LAB MON % MONOCYTE % 4.7 LAB EOS % EOSINOPHIL % 2.8 LAB BASO % BASOPHIL % 0.0 LAB BAND % BAND 7.5 NEUTROPHIL % LAB META % METAMYELOCYTE 2.8 % LAB SBANS 1.78-5.38 K/uL SEGS + 1.01 Low Bands,Absolute LAB ALYM 1.32-3.57 K/uL Abs Lymph 1.36 LAB AMONO 0.30-0.82 K/uL Abs Victoria 0.12 Low LAB AEOS <0.55 K/uL Abs Eos 0.07 LAB ABASO <0.09 K/uL Abs Baso 0.00 LAB AMETA 0.00 K/uL Abs Elkin 0.07 High LAB PLTEST PLATELET Automated ESTIMATE platelet count confirmed by manual slide review. Performed By: #### FIB, PTPTT, CA, CHM6, HFP, IPB, LDO, MGO, URICB, CBCDFC, CMVG, HEP3B, HSVG12, AMLMOB #### [facility] [address] [place] [address] [address] [place] [address] CMV IGG ANTIBODY Collected: 02/14/2018 Status: F Source: [facility] 5:27 AM [facility] REPOSITORY TYPE CODE TESTS RESULT OUT OF REFERENCE UNITS RANGE LAB CMVG Negative CMV IgG Negative Antibody Performed By: #### FIB, PTPTT, CA, CHM6, HFP, IPB, LDO, MGO, URICB, CBCDFC, CMVG, HEP3B, HSVG12, AMLMOB #### [facility] [address] [place] [id number] [place] [address] [address] [place] [address] CHRONIC HEPATITIS B Collected: 02/14/2018 Status: F Source: [facility] PACKAGE 5:27 AM [facility] REPOSITORY TYPE CODE TESTS RESULT OUT OF REFERENCE UNITS RANGE LAB HBSAG Negative Hep B Surface Ag Negative LAB HBSAB Negative Hep B Surface Ab Negative LAB HBCBG Negative Hep B Core Ab,Total Negative (IgG+IgM) LAB HCAB Negative Hepatitis C Negative Antibody Performed By: #### FIB, PTPTT, CA, CHM6, HFP, IPB, LDO, MGO, URICB, CBCDFC, CMVG, HEP3B, HSVG12, AMLMOB #### [facility] [address] [place] [address] [address] [place] [address] HSV I&II IGG ANTIBODY Collected: 02/14/2018 Status: F Source: [facility] 5:27 AM [facility] REPOSITORY TYPE CODE TESTS RESULT OUT OF RANGE REFERENCE UNITS LAB HSVG1 Negative INDETERMINATE Abnormal HSV 1 IgG Antibody Result Comment: RECOMMEND THAT TEST BE REPEATED LAB HSVG2 Negative HSV 2 Negative IgG Antibody Performed By: #### FIB, PTPTT, CA, CHM6, HFP, IPB, LDO, MGO, URICB, CBCDFC, CMVG, HEP3B, HSVG12, AMLMOB #### [facility] [address] [place] [address] [address] [place] [address] AMLMOL (MY-NGS,CEBPA,FLT3),BLOOD Observed: Status: F Source: [facility] 02/14/2018 5:27 AM [facility] REPOSITORY Peripheral blood NOT DETECTED 0 NOT DETECTED 0 Interpretation: Tommie Anthony M.D. Performed By: #### FIB, PTPTT, CA, CHM6, HFP, IPB, LDO, MGO, URICB, CBCDFC, CMVG, HEP3B, HSVG12, AMLMOB #### [facility] [address] [place] [address] [address] [place] [address] IMMUNOPHENOTYPING, BLOOD Collected: Status: F Source: [facility] 02/14/2018 5:27 [facility] REPOSITORY TYPE CODE TESTS RESULT OUT OF REFERENCE UNITS RANGE LAB ICINT Immunophenotyping (PBIPP) SEE NOTES Result Comment: (NOTE) IMMUNOPHENOTYPING DIAGNOSIS PATIENT NAME: LEXI DICKINSON : 1945 ACCN#: [id number] REVIEWED BY: Samy Vivas M.D., Ph.D. [id number] SAMPLE TYPE: Peripheral Blood Immunophenotypic analysis demonstrates a monoclonal kappa population of B lymphocytes, consistent with a B cell lymphoproliferative disorder. The monotypic B cells express CD5, partial CD10, dim/moderate CD19, moderate CD20, bright CD38, CD43, and CD81. These immunophenotypic features are not specific; therefore, correlation with clinical, radiographic, morphologic, and cytogenetic/molecular findings is necessary for further classification and prognostic stratification. There is no immunophenotypic evidence of an abnormal population of T lymphocytes or blasts. PHENOTYPIC DESCRIPTION: Flow cytometric analysis of the peripheral blood was performed using a ten color technique with a gating strategy based on CD45 staining and light side scatter characteristics. Lymphocytes represent 46.7 % of the total events analyzed. Of the lymphocytes: 38.2 % are T cells (CD3+) with a CD4:CD8 ratio of 3.1 and an absolute CD4+/CD3+ count of 358 ABS/mm3. 11.3 % are NK cells (positive for CD56 and/or CD16 and negative for CD3). The B cells represent 46.8 % of the lymphocytes (21.9 % of the total events analyzed) and express CD19+, CD20+ moderate, CD38+, CD81+ with subpopulations expressing CD10+ (10%), CD23+ (16%), CD43+ (21%), CD79b+ (16%), CD5+ (21%), CD9+ (22%), and CD22+ (17%). The B cells are essentially negative for FMC7. Analysis of surface immunoglobulin light chains shows a [place]:Lambda ratio of 35:8 with dim to moderate staining intensity. MARKER DESCRIPTION LYM REG% ABS/mm3 NORMAL % NML ABS ABSOLUTE LYMPHOCYTE COUNT 1360 [id number] CD19+ B CELL 46.8 636 2.0-21.0 20-1008 CD19+/CD20+ B CELL 51.5 700 2.0-21.0 20-1008 SIG SURFACE IG 43 K/L KAPPA/LAMBDA 35:8 RATIO CD2+ T CELL 44.3 602 70.0-92.0 700-4416 CD3+ T CELL 38.2 520 59.0-92.0 590-4416 CD4+/CD3- T CELL 2.7 CD4+/CD3+ T HELPER 26.3 358 32.0-62.0 320-2976 CD8+/CD3- T CELL 1.9 CD8+/CD3+ T SUPPRESSOR 8.4 114 11.0-40.0 110-1920 HSRA CD4/CD8 3.1 RATIO CD5+/CD19- T CELL 37.0 CD5+/CD19+ 33.5 CD23+ B CELL SUBSET 15.5 CD19+/CD10+ 10.1 CD10+ KURTIS 10.6 CD7+/CD2- T CELL 1.7 CD7+/CD2+ T CELL 36.8 CD13+/HLA DR- MONO/GRAN 0.[address]+/CD13+ 3.8 HLADR+/CD13- 70.2 CD14+/CD13- 0.3 CD13+/CD14+ 2.6 CD56/16+/CD3- NATURAL KILLER 11.3 154 3.0-25.0 30-1200 CLL MARKERS LYM REG % CD19+/CD79b- 22.5 CD19+/CD79b+ 15.8 CD43+/CD19+ 21.1 CD43+/CD79b+ 11.0 CD38+/CD19+ 27.4 CD19+/CD9+ 22.0 CD81+/CD19+ 38.1 CD81+/CD19- 60.3 CD19+/CD81- 0.2 FMC7+/CD19- 0.0 CD19+/FMC7+ 0.8 CD19+/CD22+ 17.2 CD19+/CD5+/CD43+/CD79b-/CD9+/CD38+ 10.1 CD19+/CD5+/CD43+/CD79b-/CD9+/CD38- 0.0 CD19+/CD5+/CD43+/CD79b-/CD9-/CD38+ 0.1 CD19+/CD5+/CD43+/CD79b-/CD9-/CD38- 0.1 TOTAL CD19+/CD5+/CD43+/CD79b- 10.3 MARKERS TESTED: CD10, CD13, CD14, CD19, CD2, CD20, CD22, CD23, CD3, CD38, CD4, CD43, CD45, CD5, CD56/16, CD7, CD79b, CD8, CD81, CD9, FMC7, HLA DR, KAPPA, LAMBDA MARKERS BILLED: 24 This test was developed and its performance characteristics determined The Flow Cytometry Laboratory at [facility]. It has not been cleared or approved by the FDA. This laboratory is certified under the Clinical Laboratory Improvement Amendments (CLIA) as qualified to perform high complexity clinical laboratory testing. This test is used for clinical purposes. It should not be regarded as investigational or for research. The [facility] Flow Cytometry Laboratory lower limit of CLL MRD detection is 0.1% of the gated lymphocytes. Performed By: #### PBIPP #### [facility] [address] [place] [address] [place] [address] EMERGENCY DEPARTMENT Observed: 02/14/2018 Status: F Source: [place] SUMMARY 12:55 AM [facility] REPOSITORY [facility] Medical Records Department [address] [place] [address] Emergency Department Summary 02/13/18 1813 MR#: [id number] Acct: [id number] Name: LEXI DICKINSON Rep #: [id number] : 1945 72 From: Joann Gibson MD PCP: Luis Alberto Burgos DO Status: REG ER - ER Visit Summary Date of Service: 02/13/18 Chief Complaint: Needs transfer to [facility] History of Present Illness: The patient is a 72 M presenting stating that he was advised to come to the ER to arrange transfer to [facility]. Patient was seen by his primary care physician Dr. Burgos and had outpatient blood work today. This was reviewed with Dr. Ybarra. 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 He was advised to come to the ED for transfer to [facility] for further treatment. Physical Examination: Vitals are stable. Patient is afebrile. Alert no acute distress. HEENT exam is unremarkable. Neck is supple. Lungs are clear and equal bilaterally. Heart is regular and tachycardic Abdomen is soft nontender nondistended. Extremities are unremarkable. Skin is warm and dry. No focal neurologic deficit. Remainder of exam is unremarkable. Emergency Department Course and Treatment: Labs are reviewed. He has a white count of 2.9, hemoglobin 8.7, platelets 82, 55% blasts. BUN 25, creatinine 1.8. CRP 8.76. LDH 352. Discussed with [facility] transfer [facility]. [facility] recommends allopurinol and IV fluids prior to transfer. Patient will be transferred to [facility]. Disposition: Transfer [facility] Impression: Acute lymphocytic leukemia This note was generated with xCloud dictation software. It may contain incorrect words, spelling, and punctuation that were not noted in review of the chart prior to signing ED Disposition - Plan for ED Patient: Chief Complaint: General Illness Referrals: Luis Alberto Burgos, DO [Primary Care Provider] - What to do if you have Problems For any increased pain, shortness of breath, bleeding, nausea or vomiting, chest pain, or any unexpected problems, contact your Primary Care Provider. Call [facility] ([phone]) or report to the closest Emergency Room. Call 911 if necessary. 02/14/18 0055 <Electronically signed by Joann Gibson MD> Date Joann Gibson MD Cosigner Signature (If Indicated): Date CC: Luis Alberto Burgos DO ERYTHROCYTE SED RATE Collected: 02/13/2018 Status: F Source: [place] 12:45 PM [facility] REPOSITORY TYPE CODE TESTS RESULT OUT OF RANGE REFERENCE UNITS LAB L102.0000 0-20 mm/hr Normal SED RATE 13 Performed By: #### L101.9900, L100.0100 #### [facility] [address] [place], [address] CBC W/DIFF, AUTOMATED Collected: 02/13/2018 Status: C Source: [place] 12:45 PM [facility] REPOSITORY TYPE CODE TESTS RESULT OUT OF RANGE REFERENCE UNITS LAB L100.1000 4.4-11.0 K/mm3 Low WBC 2.9 LAB L100.1200 4.6-6.2 M/mm3 Low RBC 3.05 LAB L100.1300 13.0-16.5 g/dl Low HGB 8.7 LAB L100.1400 40-54 % Low HCT 25.9 LAB L100.1500 80-94 fL Normal MCV 84.9 LAB L100.1600 27.0-32.0 pg Normal MCH 28.5 LAB L100.1700 32-36 g/gl Normal MCHC 33.6 LAB L100.1810 11.6-14.6 % High RDW CV 14.7 LAB L100.1820 35.1-43.9 fl High RDW SD 45.1 LAB L100.1900 150-450 K/mm3 Low PLT 82 LAB L100.2000 6.2-12.0 fl Normal MPV 9.1 LAB L100.2100 47-70 % Low NEUT% 25.0 LAB L100.2200 19-41 % High LY% 57.0 LAB L100.2300 0-10 % High MONO% 11.5 LAB L100.2400 0-5 % Normal EO% 3.1 LAB L100.2500 0-1 % Normal BASO% 1.0 LAB L100.2550 0.0-0.9 % High IM GRAN % 2.400 Result Comment: IG% - Immature Granulocytes (promyelocytes, myelocytes and metamyelocytes) > 1% indicates that a LEFT SHIFT is Present. LAB L100.2620 2.0-7.7 X10 3/uL Low Absolute Neut 0.7 LAB L100.2720 0.83-4.51 X10 3/ul Normal Absolute Lymph 1.63 LAB L100.4500 Normal SMEAR COMMENT COMMENT Result Comment: SLIDE SCANNED - NEUTROPENIA NOTED. LAB L100.9900 Normal Reviewed PATH REV Result Comment: Pancytopenia. Clinical correlation necessary. Bolivar Abdullahi M.D. 02/14/18 AMENDED REPORT 02/14/1823 PATH REV previously reported as: December yulia Performed By: #### L101.9900, L100.0100 #### [facility] [address], [address] COMPREHENSIVE METABOLIC Collected: 02/13/2018 Status: F Source: [facility] 12:45 PM [facility] REPOSITORY Order Comment: Serial Specimen #1, #2 or #3? 1 TYPE CODE TESTS RESULT OUT OF RANGE REFERENCE UNITS LAB L501.0100 74-106 mg/dL High GLU 141 Result Comment: Fasting Glucose result greater than or equal to 126 mg/dL suggests DIABETES MELLITUS per A.D.A. criteria. Please note revised GLUCOSE reference range effective 2017. LAB L501.1000 7-18 mg/dL High BUN 25 LAB L501.1100 0.70-1.30 mg/dL High CREAT,SERUM 1.80 Result Comment: The validity of the calculated GFR AND GFRAA in patients over 70 years has not been determined. Clinical correlation is essential. LAB L501.1110 >60 mL/min Low EST GFR 40 Result Comment: Non- GFR Calc LAB L501.1115 >60 mL/min Low EST GFR - AA 48 Result Comment: GFR Calc LAB L501.1300 10-20 RATIO Normal BUN/CRE 13.9 LAB L501.1500 6.4-8.2 g/dL T Normal PROT 7.7 LAB L501.1800 3.2-5.0 g/dL Normal ALB 3.8 LAB L501.1950 2.2-4.2 g/dL Normal GLOB 3.9 LAB L501.2000 0.9-2.4 RATIO Normal A/G 1.0 LAB L501.2200 8.5-10.1 mg/dL High CA 10.4 LAB L501.4100 15-37 U/L Normal AST 27 LAB L501.4305 45-117 U/L Normal ALK P 80 LAB L501.4405 16-61 U/L Normal ALT 21 LAB L501.4600 0.20-1.00 mg/dL T Normal BILI 1.00 LAB L501.5300 136-145 mmol/L NA Normal 142 LAB L501.5600 3.5-5.1 mmol/L K Normal 4.0 LAB L501.5900 98-107 mmol/L CL Normal 105 LAB L501.6100 21.0-32.0 mmol/L Normal CO2 29.0 LAB L501.6200 5-15 Normal GAP 8 Performed By: #### L500.4050, L501.1400, L501.6710, L503.6150, L503.6550, L504.2610 #### [facility] [address] [place], [place], [address] URIC ACID Collected: 02/13/2018 Status: F Source: [place] 12:45 PM [facility] REPOSITORY Order Comment: Serial Specimen #1, #2 or #3? 1 TYPE CODE TESTS RESULT OUT OF RANGE REFERENCE UNITS LAB L501.1400 3.5-7.2 mg/dL High URIC 8.4 Result Comment: The drugs N-Acetylcysteine and Metamizole may falsely depress this assay. Performed By: #### L500.4050, L501.1400, L501.6710, L503.6150, L503.6550, L504.2610 #### [facility] [address] [place], [address] CRP Collected: 02/13/2018 Status: F Source: [place] 12:45 PM [facility] REPOSITORY Order Comment: Serial Specimen #1, #2 or #3? 1 TYPE CODE TESTS RESULT OUT OF RANGE REFERENCE UNITS LAB L501.6710 0.0-3.0 mg/L High 8.76 C-REACTIVE PROT Result Comment: C-Reactive Protein (CRP) provides useful information for the diagnosis, therapy and monitoring of inflammatory processes and associated diseases. For the evaluation of Relative Risk for Cardiovascular Disease, a High Sensitivity CRP (HSCRP) should be ordered. Performed By: #### L500.4050, L501.1400, L501.6710, L503.6150, L503.6550, L504.2610 #### [facility] [address] [place], [address] IRON Collected: 02/13/2018 Status: F Source: [place] 12:45 PM [facility] REPOSITORY Order Comment: Serial Specimen #1, #2 or #3? 1 TYPE CODE TESTS RESULT OUT OF RANGE REFERENCE UNITS LAB L503.6150 65-175 ug/dL Normal IRON 156 Performed By: #### L500.4050, L501.1400, L501.6710, L503.6150, L503.6550, L504.2610 #### [facility] [address] [place], [address] FERRITIN Collected: 02/13/2018 Status: F Source: [place] 12:45 PM [facility] REPOSITORY Order Comment: Serial Specimen #1, #2 or #3? 1 TYPE CODE TESTS RESULT OUT OF REFERENCE UNITS RANGE LAB L503.6550 26-388 ng/mL High FERRITIN 729 Performed By: #### L500.4050, L501.1400, L501.6710, L503.6150, L503.6550, L504.2610 #### [facility] [address] [place], [address] LDH Collected: 02/13/2018 Status: F Source: [place] 12:45 PM [facility] REPOSITORY Order Comment: Serial Specimen #1, #2 or #3? 1 TYPE CODE TESTS RESULT OUT OF RANGE REFERENCE UNITS LAB L504.2610 87-241 U/L High LDH 352 Performed By: #### L500.4050, L501.1400, L501.6710, L503.6150, L503.6550, L504.2610 #### [facility] [address] [place], [address] PROTHROMBIN TIME W/INR Collected: 02/13/2018 Status: F Source: [place] 12:45 PM [facility] REPOSITORY TYPE CODE TESTS RESULT OUT OF RANGE REFERENCE UNITS LAB L300.4150 11.7-14.9 SECONDS Normal PROTIME 13.5 LAB L300.4200 Normal INR 1.0 Performed By: #### L300.3900, L300.4310 #### [facility] [address] [place], [address] PARTIAL THROMBOPLAST Collected: 02/13/2018 Status: F Source: [place] TIME 12:45 PM [facility] REPOSITORY TYPE CODE TESTS RESULT OUT OF RANGE REFERENCE UNITS LAB L300.4310 24.1-36.2 Seconds Normal PTT 27.7 Performed By: #### L300.3900, L300.4310 #### [facility] [address] [place], [address] [id number] Collected: Status: F Source: [place] 02/13/2018 12:45 PM [facility] REPOSITORY TYPE CODE TESTS RESULT OUT OF RANGE REFERENCE UNITS LAB L3890.5000 0.6-2.4 mg/L High B2 6.9 [id number] Result Comment: Siemens Immulite 2000 Immunochemiluminometric assay (ICMA) Performed at: - [facility] [id number] Life Scientist: Ky Bruce MD, Phone: [phone] Performed By: #### L3890.5000 #### [facility] (refer to report for specific site) refer to report for address and phone number EMERGENCY DEPARTMENT Observed: 02/09/2018 Status: F Source: [place] SUMMARY 1:07 PM [facility] REPOSITORY [facility] Medical Records Department [address] [place] [address] Emergency Department Summary 02/09/18 0940 MR#: [id number] Acct: [id number] Name: LEXI DICKINSON Rep #: [id number] : 1945 72 From: Roderick Early DO PCP: Luis Alberto Burgos DO Status: REG ER - ER Visit Summary Date of Service: 02/09/18 Chief Complaint: Dizziness and weakness History of Present Illness: The patient is a 72 M who presents with weakness, dizziness, and fatigue that has been getting worse over the past 2 weeks. Patient states he feels lightheaded with sitting and standing. Patient states he also feels a spinning sensation at times. Patient states nothing seems to help. Patient states he has been having to stop to catch his breath while he mows the lawn. Patient admits to some occasional right-sided chest pain that only lasts a couple seconds then resolves. Patient does admit to some palpitations where he can feel his heart skipping beats. Patient also admits to some dark stools recently. Patient admits to nausea but denies any vomiting. Patient also admits to a mild headache. Physical Examination: Vital signs are stable. Patient is afebrile. Patient is in no acute distress. Pupils are equal, round, and reactive to light bilateral. Extraocular muscles are intact. Conjunctiva is clear. Oral mucosa is pink and moist. Heart was regular rate and rhythm. Lungs are clear and equal bilaterally. There is good respiratory effort noted. Abdomen is soft. Bowel sounds are normal. There is no tenderness. Rectal exam showed brown stool. Hemoccult was negative. There were no masses palpated. Cranial nerves II through XII are intact. There are no focal motor or sensory deficits noted. The remaining physical exam is within normal limits. Test Results: CBC shows a hemoglobin of 9.4. This is down from 13.4 approximately 2 months ago. Creatinine was slightly elevated at 1.79 which is normal for him. Orthostatic vital signs were obtained and were normal. Emergency Department Course and Treatment: Patient felt better on reevaluation. Case was discussed with his primary care physician, Dr. Burgos. He will follow-up with the patient in his office for further evaluation including stress test and referral for endoscopy. Patient understood and was agreeable with the plan. All questions were answered. Disposition: Discharged home Impression: Anemia This note was generated with xCloud dictation software. It may contain incorrect words, spelling, and punctuation that were not noted in review of the chart prior to signing ED Disposition - Plan for ED Patient: Disposition: Home or Assisted Living Chief Complaint: Dizziness Diagnosis: Anemia Instructions: ED Dizziness [facility] Referrals: Luis Alberto Burgos, [Primary Care Provider] - What to do if you have Problems For any increased pain, shortness of breath, bleeding, nausea or vomiting, chest pain, or any unexpected problems, contact your Primary Care Provider. Call [facility] ([phone]) or report to the closest Emergency Room. Call 911 if necessary. 02/09/18 1307 <Electronically signed by Roderick Early DO> Date Roderick Early DO Cosigner Signature (If Indicated): Date CC: Luis Alberto Burgos DO Observed: 02/09/2018 Status: F Source: [place] STOOL OCCULT BLOOD 11:20 AM [facility] IFOB REPOSITORY [facility] iFOB Occult Blood Negative Performed By: #### M100.7900 #### [facility] [address] [facility] [address] [place], [place], [address] URINALYSIS, COMPLETE Collected: 02/09/2018 Status: F Source: [place] 11:20 AM [facility] REPOSITORY Order Comment: How was Urine Obtained? CLEAN CATCH TYPE CODE TESTS RESULT OUT OF RANGE REFERENCE UNITS LAB L400.3000 Yellow COLOR Normal Yellow LAB L400.3050 Clear Normal CLARITY Clear LAB L400.3200 Normal mg/dl Normal GLUCOSE, UR Normal LAB L400.3300 Negative mg/dL Normal BILIRUBIN URINE Negative LAB L400.3400 Negative mg/dl High 5 KETONE UR LAB L400.3465 1.002-1.030 Normal SP.GR. DIPSTX 1.030 LAB L400.3550 5.0 - 8.0 pH UR Normal 5.0 LAB L400.3600 Negative mg/dl High PROT 30 DIPSTX LAB L400.3700 Normal mg/dl High 1 UROBILI LAB L400.3750 Negative Normal NITRITE UR Negative LAB L400.3780 Negative /ul Normal OCCULT BLOOD-UR Negative LAB L400.3800 Negative /ul High LEUK 25 ESTERASE LAB L400.4050 0-5 /hpf WBC Normal 0-5 SEEN LAB L400.4100 0-5 /hpf 0 Normal RBC-UA SEEN LAB L400.4150 0-5 /hpf SQUAM Normal EPI 0-5 SEEN LAB L400.4300 None Seen /hpf 0 Normal BACTERIA SEEN LAB L400.4350 <or=2+ /hpf Normal MUCUS, URINE RARE LAB L400.4400 0-5 /lpf Normal HYALINE CAST 5-10 SEEN LAB L400.4700 <or=2+ /hpf CA OX 3+ Normal CRYSTAL Performed By: #### L400.0001 #### [facility] [address] [place], [address] CBC W/DIFF, AUTOMATED Collected: 02/09/2018 Status: C Source: [place] 9:50 AM [facility] REPOSITORY TYPE CODE TESTS RESULT OUT OF RANGE REFERENCE UNITS LAB L100.1000 4.4-11.0 K/mm3 Low WBC 3.3 LAB L100.1200 4.6-6.2 M/mm3 Low RBC 3.16 LAB L100.1300 13.0-16.5 g/dl Low HGB 9.4 LAB L100.1400 40-54 % Low HCT 27.0 LAB L100.1500 80-94 fL Normal MCV 85.4 LAB L100.1600 27.0-32.0 pg Normal MCH 29.7 LAB L100.1700 32-36 g/gl Normal MCHC 34.8 LAB L100.1810 11.6-14.6 % Normal RDW CV 14.1 LAB L100.1820 35.1-43.9 fl Normal RDW SD 42.3 LAB L100.1900 150-450 K/mm3 Low 79 PLT LAB L100.2000 6.2-12.0 fl Normal MPV 8.9 LAB L100.3100 MANUAL DIFF Normal CELLS COUNTED 100 LAB L100.3200 47-70 % Low 17 SEGS LAB L100.3300 0-5 % 4 Normal BAND LAB L100.3400 0-1 % High 5 META LAB L100.3500 0-0 High 2 MYELO LAB L100.3800 19-41 % High 55 LYMPH LAB L100.3900 0-10 % High 13 MONOCYTE LAB L100.4000 0-5 % 2 Normal EOS LAB L100.4100 0-1 % High 2 BASOPHIL LAB L100.9900 Normal PATH REV Reviewed Result Comment: Pancytopenia. Clinical correlation necessary. Bolivar Abdullahi M.D. 02/10/18 AMENDED REPORT 02/10/18 1002 PATH REV previously reported as: May foll LAB L100.7600 Normal HYPOCHROMASIA RARE LAB L100.2620 2.0-7.7 X10 Low 3/uL Absolute Neut 0.7 LAB L100.2720 0.83-4. X10 Normal 51 3/ul Absolute Lymph 1.80 Performed By: #### L100.0100 #### [facility] [address] [place], [place], [address] COMPREHENSIVE METABOLIC Collected: 02/09/2018 Status: F Source: [facility] 9:50 AM [facility] REPOSITORY TYPE CODE TESTS RESULT OUT OF RANGE REFERENCE UNITS LAB L501.0100 74-106 mg/dL High GLU 147 Result Comment: Fasting Glucose result greater than or equal to 126 mg/dL suggests DIABETES MELLITUS per A.D.A. criteria. Please note revised GLUCOSE reference range effective 2017. LAB L501.1000 7-18 mg/dL High BUN 32 LAB L501.1100 0.70-1.30 mg/dL High CREAT,SERUM 1.76 Result Comment: The validity of the calculated GFR AND GFRAA in patients over 70 years has not been determined. Clinical correlation is essential. LAB L501.1110 >60 mL/min Low EST GFR 41 Result Comment: Non- GFR Calc LAB L501.1115 >60 mL/min Low EST GFR - AA 49 Result Comment: GFR Calc LAB L501.1255 ml/min Normal Estimated CRCL 36.70 LAB L501.1300 10-20 RATIO Normal BUN/CRE 18.2 LAB L501.1500 6.4-8. g/dL Normal 2 T PROT 7.6 LAB L501.1800 3.2-5. g/dL Normal 0 ALB 3.9 LAB L501.1950 2.2-4. g/dL Normal 2 GLOB 3.7 LAB L501.2000 0.9-2. RATIO Normal 4 A/G 1.1 LAB L501.2200 8.5-10 mg/dL High .1 CA 10.9 LAB L501.4100 15-37 U/L Normal AST 30 LAB L501.4305 45-117 U/L Normal ALK P 74 LAB L501.4405 16-61 U/L Normal ALT 20 LAB L501.4600 0.20-1 mg/dL High .00 T BILI 1.40 LAB L501.5300 136-14 mmol/L Normal 5 NA 143 LAB L501.5600 3.5-5. mmol/L Normal 1 K 4.0 LAB L501.5900 98-107 mmol/L Normal CL 105 LAB L501.6100 21.0-3 mmol/L Normal 2.0 CO2 27.0 LAB L501.6200 5-15 Normal GAP 11 Performed By: #### L500.4050 #### [facility] [address] [place], [address] ACUTE ABDOMEN INC Observed: 02/09/2018 Status: F Source: [place] CHEST 9:40 AM [facility] REPOSITORY [facility] Imaging Services [address] [place] [address] Acute Abdomen Inc Chest MR#: [id number] Acct: [id number] Name: LEXI DICKINSON Rep #: [id number] : 1945 M 72 From: Hal North MD PCP: Luis Alberto Burgos DO Status: REG ER Study: Acute Abdomen Inc Chest Date of Exam: 02/09/18 Exam# [id number] Ordering Dr: Roderick Early DO STUDY: X-RAY - ACUTE ABDOMINAL SERIES REASON FOR EXAM: Male, 72 years old. Dizziness. Pain. TECHNIQUE: Single view of the chest. Supine, and erect view(s) of the abdomen were obtained. COMPARISON: None. FINDINGS: The lungs are clear and expanded. Normal size heart. Normal mediastinum and robinson. Normal visualized pulmonary arteries. Normal visualized aortic arch and descending thoracic aorta. There is a non-specific bowel gas pattern. The soft tissue structures of the abdomen and pelvis are unremarkable. There are diffuse degenerative changes of the visualized lumbar spine. RAD/Acute Abdomen Inc Chest IMPRESSION: There is no acute abnormality. Electronically Signed: Hal North MD at 10:39 EDT , Service support , CC: Roderick Early DO; Luis Alberto Burgos DO [employer] Specialist: Signed HEMOGLOBIN A1C Collected: 12/15/2017 Status: F Source: [place] 1:31 PM [facility] REPOSITORY TYPE CODE TESTS RESULT OUT OF RANGE REFERENCE UNITS LAB L501.9985 4.2-6.3 % High HGB A1C 7.4 Performed By: #### L501.9985 #### [facility] [address] [place], [place], [address] LIPID PROFILE Collected: 12/15/2017 Status: F Source: [place] 1:31 PM [facility] REPOSITORY TYPE CODE TESTS RESULT OUT OF RANGE REFERENCE UNITS LAB L501.4900 200 mg/dL High CHOL 256 Result Comment: <200 mg/dL Desirable 200-240 mg/dL Borderline >240 mg/dL High Risk LAB L501.5000 mg/dL High TRIG 311 Result Comment: The drugs N-Acetylcysteine and Metamizole may falsely depress this assay. Serum Triglycerides Reference Interval Normal <150 mg/dL Borderline high 150 - 199 mg/dL High 200 - 499 mg/dL Very High > or = 500 mg/dL LAB L501.6400 mg/dL Low HDL 35 Result Comment: The drugs N-Acetylcysteine and Metamizole may falsely depress this assay. Reference Range HDL <40 mg/dL Low HDL Cholesterol HDL >or= 60 mg/dL High HDL Cholesterol LAB L501.6500 0-130 mg/dL High LDL 159 LAB L501.6600 5-40 mg/dL High VLDL 62 Performed By: #### L500.4100 #### [facility] [address] [place], [address] TESTOSTERONE, TOTAL / Collected: 12/15/2017 Status: F Source: [place] FREE 1:31 PM [facility] REPOSITORY Order Comment: Has Patient had X-rays with Contrast this admission? N TYPE CODE TESTS RESULT OUT OF RANGE REFERENCE UNITS LAB L3100.5320 264-916 ng/dL Low 163 TESTOSTER,TO VINCENZO Result Comment: Adult male reference interval is based on a population of healthy nonobese males (BMI <30) between 19 and 39 years old. Daniel et.al. JCEM 2017,102;0707-6789. PMID: [id number]. LAB L3100.5340 5.00-21.00 ng/dL Low TESTOSTER,FREE 4.63 LAB L3100.5360 1.50-4.20 % TESTOSTER %FREE Normal 2.84 Result Comment: Performed at: [address] [id number] Life Scientist: Jose Manuel Koehler PhD, Phone: [phone] Performed at: [address] [id number] Life Scientist: Ky Bruce MD, Phone: [phone] Performed By: #### L3100.5310 #### [facility] (refer to report for specific site) refer to report for address and phone number ONCOLOGY VISIT REPORT Observed: 12/06/2017 Status: F Source: [place] 1:36 PM [facility] REPOSITORY [facility] [place] [address] OFFICE VISIT Date of Service: 12/06/17 1330 MR#: [id number] Acct: [id number] Name: LEXI DICKINSON Rep #: [id number] : 1945 From: Karri Ybarra MD Age/Sex: 72/M Location: OMD Status: Signed Subjective - Date of Service Date of Service:: 12/06/17 - Chief Complaint F/u for NHL> - History of Present Illness 72y.o.man was diagnosed with NHL stage IIA, extranodal, DLBC, 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 He was treated with 4 cycles of R-CHOP followed by 2 additional cycles of Rituxan completed on 06/07/2016. 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 He is on observation, comes in for follow up. He feels well. - Past Medical/Social History Past Medical History Past Medical History: Anxiety,Hyperlipidemia,Hypertension Cancer: Lymphoma Other Cancer History: Non-Hodgkins Lymphoma Past Surgical History Surgical: Cholecystectomy Other Surgical History: BILATERAL MYRINGOTOMY WITH TYMPANOSTOMY TUBES PLACED Family History Paternal Past Medical History: Diabetes mellitus,Heart disease Maternal Past Medical History: Diabetes mellitus,Heart disease Social History Social History: No changes Smoking Status Never smoker Review of Systems Constitutional:: Denies: Fever, Sweats, Weight loss, Appetite change, Chills Cardiovascular:: Denies: Chest pain, Palpitations, Dyspnea on exertion, Orthopnea, PND, Shortness of breath Respiratory: Denies: Cough, Hemoptysis, Shortness of Breath, Wheezing Gastrointestinal:: Denies: Abdominal pain, Nausea, Vomiting, Diarrhea, Constipation, Hematochezia Genitourinary: Denies: Dysuria, Hematuria, 15, Flank pain Musculoskeletal:: Denies: Back pain, Myalgia, Arthralgia Skin: Denies: Rash, Skin Changes, Wounds Neurological:: Denies: Headache, Dizziness, Visual changes, Tinnitus, Hearing loss Psychiatric: Reports: Depression - improving now. Vital Signs Height 5 ft 9 in Weight: 82.554 kg Weight in Pounds 182.0 lbs Pulse Ox 97 - Physical Exam General: Alert, Oriented x3, No apparent distress HEENT: Atraumatic, PERRLA, EOMI, Normocephalic Oropharynx:: Dry mucosa Neck:: Supple, Trachea midline. Negative for: JVD, bilateral Cardiac:: Regular rate, Regular rhythm, Normal S1, Normal S2. Negative for: Murmur Lungs: Clear to auscultation, Excusion symmetrical. Negative for: Rhonchi, Wheezes Abdomen:: Bowel sounds x 4, Soft, Non-tender, Non-distended. Negative for: Hepatosplenomegaly Extremities:: Negative for: Cyanosis, Edema Neurological: Neuro grossly intact Skin:: Negative for: Lesions, Rash, Petechiae, Ecchymosis Psychiatric:: Appropriate affect, Euthymic Lymphatics:: Negative for: Cervical lymphadenopathy, Supraclavicular lymphadenopathy, Axillary lymphadenopathy Laboratory Data: Laboratory Tests WBC 4.3 L (4.4-11.0) K/mm3 RBC 4.53 L (4.6-6.2) M/mm3 Hgb 13.4 (13.0-16.5) g/dl Hct 40.1 (40-54) % MCV 88.5 (80-94) fL Assessment and Plan Non-Hodgkin's-diffuse large B cell, stage IIA. In remission. Plan is to continue observation. Return to clinic 1 year with CBC CMP and LDH. Medications: Prescriptions This Visit Medication Instructions Recorded Primary Care Provider: Luis Alberto Burgos DO Referring Provider: - Problem List (1) History of non-Hodgkin's lymphoma Status: Chronic Code Visit Office Visits / Consults: 36709 OV L3 Est 12/06/17 1336 <Electronically signed by Karri Ybarra MD> Date Karri Ybarra MD Cosigner Signature: Date (if applicable) CC: CBC W/DIFF, AUTOMATED Collected: 12/06/2017 Status: F Source: [place] 12:34 PM [facility] REPOSITORY Order Comment: Reason for Laboratory Test OV TYPE CODE TESTS RESULT OUT OF RANGE REFERENCE UNITS LAB L100.1000 4.4-11.0 K/mm3 Low WBC 4.3 LAB L100.1200 4.6-6.2 M/mm3 Low RBC 4.53 LAB L100.1300 13.0-16.5 g/dl Normal HGB 13.4 LAB L100.1400 40-54 % Normal HCT 40.1 LAB L100.1500 80-94 fL Normal MCV 88.5 LAB L100.1600 27.0-32.0 pg Normal MCH 29.6 LAB L100.1700 32-36 g/gl Normal MCHC 33.4 LAB L100.1810 11.6-14.6 % Normal RDW CV 13.8 LAB L100.1820 35.1-43.9 fl High RDW SD 44.7 LAB L100.1900 150-450 K/mm3 Normal PLT 181 LAB L100.2000 6.2-12.0 fl Normal MPV 9.9 LAB L100.2100 47-70 % Normal NEUT% 48.6 LAB L100.2200 19-41 % Normal LY% 35.1 LAB L100.2300 0-10 % High MONO% 11.7 LAB L100.2400 0-5 % Normal EO% 4.2 LAB L100.2500 0-1 % Normal BASO% 0.2 LAB L100.2550 0.0-0.9 % Normal IM GRAN % 0.200 Result Comment: IG% - Immature Granulocytes (promyelocytes, myelocytes and metamyelocytes) > 1% indicates that a LEFT SHIFT is Present. LAB L100.2620 2.0-7.7 X10 3/uL Normal Absolute Neut 2.1 LAB L100.2720 0.83-4.51 X10 3/ul Normal Absolute Lymph 1.50 Performed By: #### L100.0100 #### [facility] [place], [address] COMPREHENSIVE METABOLIC Collected: 12/06/2017 Status: F Source: [place] VACA 12:34 PM [facility] REPOSITORY Order Comment: Reason for Laboratory Test OV Serial Specimen #1, #2 or #3? 1 TYPE CODE TESTS RESULT OUT OF RANGE REFERENCE UNITS LAB L501.0100 74-106 mg/dL High GLU 117 Result Comment: Fasting Glucose result from 100 to 125 mg/dL suggests IMPAIRED HOMEOSTASIS per A.D.A. criteria. Please note revised GLUCOSE reference range effective 2017. LAB L501.1000 7-18 mg/dL High BUN 21 LAB L501.1100 0.70-1.30 mg/dL High CREAT,SERUM 1.47 Result Comment: The validity of the calculated GFR AND GFRAA in patients over 70 years has not been determined. Clinical correlation is essential. LAB L501.1110 >60 mL/min Low EST GFR 50 Result Comment: Non- GFR Calc LAB L501.1115 >60 mL/min Normal EST GFR - AA 61 Result Comment: GFR Calc LAB L501.1255 ml/min Normal Estimated CRCL 45.42 LAB L501.1300 10-20 RATIO Normal BUN/CRE 14.3 LAB L501.1500 6.4-8. g/dL Normal 2 T PROT 8.0 LAB L501.1800 3.2-5. g/dL Normal 0 ALB 4.0 LAB L501.1950 2.2-4. g/dL Normal 2 GLOB 4.0 LAB L501.2000 0.9-2. RATIO Normal 4 A/G 1.0 LAB L501.2200 8.5-10 mg/dL Normal .1 CA 8.7 LAB L501.4100 15-37 U/L Normal AST 23 LAB L501.4305 45-117 U/L Normal ALK P 91 LAB L501.4405 16-61 U/L Normal ALT 25 Result Comment: Please note revised ALT reference range effective 2017. LAB L501.4600 0.20-1.00 mg/dL High T BILI 1.30 LAB L501.5300 136-145 mmol/L Normal NA 141 LAB L501.5600 3.5-5.1 mmol/L Normal K 4.1 LAB L501.5900 98-107 mmol/L Normal CL 105 LAB L501.6100 21.0-32.0 mmol/L Normal CO2 27.0 LAB L501.6200 5-15 Normal GAP 9 Performed By: #### L500.4050, L504.2610 #### [facility] [address] [place], [address] LDH Collected: 12/06/2017 Status: F Source: [place] 12:34 PM [facility] REPOSITORY Order Comment: Reason for Laboratory Test OV Serial Specimen #1, #2 or #3? 1 TYPE CODE TESTS RESULT OUT OF RANGE REFERENCE UNITS LAB L504.2610 87-241 U/L Normal LDH 239 Performed By: #### L500.4050, L504.2610 #### [facility] [address] [place], [address] ALLERGIES ALLERGIES DATE TYPE / CODE NAME / CODE REACTION SEVERITY SOURCE 09/11/2018 Drug dextromethor Unknown [facility] Allergy/4160 mascorro/[id number] Hospital 67181(SNOMED 427(RXNORM) Repository CT) 09/11/2018 Drug quetiapine/F Other [facility] Allergy/4160 [id number]( Hospital 57772(SNOMED NORM) Repository CT) 09/11/2018 Drug duloxetine/F Other [facility] Allergy/4160 027625205( Hospital 58353(SNOMED NORM) Repository CT) ENCOUNTERS ENCOUNTERS ADMIT/DISCHARGE ACCOUNT NUMBER ADMITTING ENCOUNTER LOCATION SOURCE CLASS 09/18/2018 [id number] Ambulatory [facility] ding:ONC Repository 09/11/2018 [id number] Ambulatory B[facility]: [place] [facility] Repository 09/08/2018 [id number] Ambulatory [facility] ding:MEDOUTP Repository 09/04/2018 [id number] Ambulatory BMSBuilding: [place] [facility] Repository 08/26/2018 [id number] Ambulatory Building:CT5 [facility] Repository 08/25/2018 [id number] Ambulatory Building:CT5 [facility] Repository 08/24/2018 [id number] Ambulatory Building:CT5 [facility] Repository 08/24/2018 [id number] Ambulatory Building:CT5 [facility] Repository 08/14/2018 [id number] Ambulatory BBuilding:[facility] Repository 08/11/2018 [id number] Ambulatory [facility] ding:MEDOUTP Repository 08/08/2018 [id number] Ambulatory [facility] ding:MEDOUTP Repository 07/29/2018 [id number] Ambulatory Building:CT5 [facility] Repository 07/28/2018 [id number] Ambulatory Building:CT5 [facility] Repository 07/28/2018 [id number] Ambulatory Building:K[facility] Repository 07/27/2018 [id number] Ambulatory Building:CT5 [facility] Repository 07/27/2018 [id number] Ambulatory Building:CT5 [facility] Repository 07/26/2018 [id number] Ambulatory Building:[facility] Repository 07/14/2018 [id number] Ambulatory [facility] ding:MEDOUTP Repository 07/01/2018 [id number] Ambulatory Building:CT5 [facility] Repository 06/30/2018 [id number] Ambulatory Building:CT5 [facility] Repository 06/29/2018 [id number] Ambulatory Building:CT5 [facility] Repository 06/29/2018 [id number] Ambulatory Building:CT5 [facility] Repository 06/20/2018 [id number] Ambulatory [facility] ding:MEDOUTP Repository 06/13/2018 [id number] Ambulatory [facility] ding:MEDOUTP Repository 06/12/2018/06/12/20 [id number] Emergency [address] ding:ED Repository 06/03/2018 [id number] Ambulatory Building:CT5 [facility] Repository 06/02/2018 [id number] Ambulatory Building:CT5 [facility] Repository 06/01/2018 [id number] Ambulatory Building:CT5 [facility] Repository 06/01/2018 [id number] Ambulatory Building:CT5 [facility] Repository 05/22/2018 [id number] Ambulatory [facility]MS[facility]: [place] [facility] Repository 05/16/2018 [id number] Ambulatory [facility] ding:MEDOUTP Repository 05/12/2018 [id number] Ambulatory [facility] ding:MEDOUTP Repository 05/06/2018 [id number] Ambulatory Building:CT5 [facility] Repository 05/05/2018 [id number] Ambulatory Building:CT5 [facility] Repository 05/04/2018 [id number] Ambulatory Building:[facility] Repository 05/04/2018 [id number] Ambulatory Building:CT5 [facility] Repository 05/04/2018 [id number] Ambulatory Building:CT5 [facility] Repository 04/25/2018 [id number] Ambulatory [facility]: [place] [facility] Repository 04/15/2018/04/15/20 [id number] Ambulatory [address] ding:PCUOUT Repository 04/12/2018 [id number] Ambulatory [facility] ding:MEDOUTP Repository 03/29/2018/04/10/20 [id number] [facility], Inpatient Building:[address] [address] CANDI Deborah Goel: [place] 163ed: A [facility] Repository 03/28/2018 [id number] Ambulatory BMS[facility]: [place] [facility] Repository 03/13/2018 [id number] Ambulatory BMSBuilding: [place] [facility] Repository 02/27/2018 [id number] Ambulatory BMSBuilding: [place] [facility] Repository 02/14/2018/02/25/20 [id number] [facility], Inpatient Building:[place] [address] [facility] Encounter Amando: [place] 1626Bed: Kay [facility] Repository 02/13/2018/02/15/20 [id number] Emergency [place] [address] ding:ED Repository 02/13/2018 [id number] Ambulatory [place] [facility] ding:MTLAB Repository 02/09/2018/02/10/20 [id number] Emergency [address] ding:ED Repository 12/15/2017 [id number] Ambulatory [facility] ding:BFHLAB Repository 12/06/2017 [id number] Ambulatory [facility]: [place] [facility] Repository PAYERS PAYERS ENCOUNTER GUARANTOR PAYER SUBSCRIBER SOURCE 09/18/2018 LEXI STAPLETON1 Primary LEXI D [place] Insurance:ANTHIGNACIA MARREROB[place] [id number] [id number]: [phone]) ADVANTAPolicy Number: Repository [phone] () [id number] Date:3687-19-22Ab [address] [place] [address]HA: 09/18/2018 Secondary NOT GIVENUNK [place] Insurance:SELF PAY [facility] Number: Effective Repository Date:2016-11-15 09/11/2018 LEXI STAPLETON1 Primary LEXI D [place] Insurance:JIGNESH MARREROB: [place] [id number] [address]Yex: (330) ADVANTAPolicy Number: Repository [phone] () [id number] Date:1892-03-62Aq [address] [place] [address] 998[address]BT: 09/11/2018 Secondary NOT GIVENUNK [place] Insurance:SELF PAY [facility] Number: Effective Repository Date:2018-09-11 09/08/2018 LEXI STAPLETON1 Primary NOT GIVENUNK [place] Insurance:SELF PAY [facility] [address]Hvw: [phone]) Number: Effective Repository [phone] () Date:2018-09-07 09/04/2018 LEXI DICKINSON341 Primary LEXI D [place] Insurance:ANTH W[place]SONDOB: [place] [id number] [address]Ngc: [phone]) ADVANTAPolicy Number: Repository [phone] () [id number] Date:0145-36-95Mf [address] [place] [address]DK: 09/04/2018 Secondary NOT GIVENUNK [place] Insurance:SELF PAY [facility] Number: Effective Repository Date:2018-09-04 08/26/2018 LEXI WILSONDOB: Primary LEXI WILSONDOB: [facility] Insurance:MEDICARE [id number] [facility] [place] [facility] [address]Oua: (330) [id number] 798[address]Zhw: (330) Repository [phone] () Date:2839-94-04Akpw [phone] () Name:CARE 08/25/2018 LEXI WILSONDOB: Primary LEXI WILSONDOB: [facility] Insurance:MEDICARE [id number] [facility] [place], [place] PPOPolicy Number: [facility] 16693Xkk: (330) [id number] 88860Mrn: (330) Repository [phone] () Date:3725-01-00Skfq [phone] () Name:CARE 08/24/2018 LEXI WILSONDOB: Primary LEXI WILSONDOB: [facility] Insurance:MEDICARE [id number] [facility] [place] PPOPolicy [place]: [place] Center [address]Luf: (330) [id number] 37847Rom: (330) Repository [phone] () Date:2944-40-32Bxeu [phone] () Name:CARE 08/24/2018 LEXI WILSONDOB: Primary LEXI WILSONDOB: [facility] Insurance:MEDICARE [id number] [place], [place] PPOPolicy Number: [place] [address]Yeb: (330) [id number] 05621Ott: (330) Repository [phone] () Date:1226-80-71Nbcl [phone] () Name:CARE 08/14/2018 LEXI D Primary LEXI D [facility] WILSONDOB: Insurance:JIGNESH DICKINSONDOB: [facility] [place] [id number] B[address] [facility] [id number] Repository [address] [place] [address], Number: [facility] [id number]: [id number] [address] [place] [address] Date:2017-08-13 [facility] 66334Atj: (HP) 9804-18-61Htfb Name:O Box ()Tel: (785) [id number] [place] 000-0000 () 03471QO: 08/11/2018 LEXI D [id number] Primary LEXI D Edith LEE Insurance:ANTHIGNACIA MARREROB: [place] [id number] Hospital 35298Pah: (330) ADVANTAPolicy Number: Repository [phone] () [id number] Date:8004-50-05[address]Tbmvqpw [place] [address]ZM: 08/11/2018 Secondary NOT GIVENUNK Edith Insurance:SELF PAY [facility] Number: Effective Repository Date:2018-08-10 08/08/2018 LEXI D [id number] Primary LEXI D Edith LEE Insurance:ANTHIGNACIA DICKINSONDOB: [facility] [place] [id number] Hospital 32751Lyw: (330) ADVANTAPolicy Number: Repository [phone] () [id number] Date:5128-88-02Uw[address] [address]RP: 08/08/2018 Secondary NOT GIVENUNK [place] Insurance:SELF PAY [facility] Number: Effective Repository Date:2018-08-07 07/29/2018 LEXI WILSONDOB: Primary LEXI WILSONDOB: [facility] Insurance:MEDICARE [id number] [facility] [place] PPOPolicy Number: [facility] [address]Vya: (330) [id number] 22857Tyt: (330) Repository [phone] () Date:4260-04-45Haon [phone] () Name:CARE 07/28/2018 LEXI WILSONDOB: Primary LEXI WILSONDOB: [facility] Insurance:MEDICARE [id number] [facility] [place] [facility] [place] PPOPolicy Number: [facility] [address]77[address]Dva: (330) [id number] 83797Vgh: (330) Repository [phone] () Date:5273-09-43Mllg [phone] () Name:CARE 07/28/2018 LEXI WILSONDOB: Primary LEXI WILSONDOB: [facility] Insurance:MEDICARE [id number] [facility] [place] [facility] [place] PPOPolicy Number: [facility] 06186Dcp: (330) [id number] 57890Qhi: (330) Repository [phone] (HP) Date:0518-20-58Eepu [phone] (HP) Name:CARE 07/27/2018 LEXI WILSONDOB: Primary LEXI WILSONDOB: [facility] Insurance:MEDICARE [id number] [facility] [place] [facility] [place] PPOPolicy Number: [facility] [address]Fsc: (330) [id number]: (330) Repository [phone] () Date:1242-23-76Qqbf [phone] (HP) Name:CARE 07/27/2018 LEXI WILSONDOB: Primary LEXI WILSONDOB: [facility] Insurance:MEDICARE [id number] [place] [address] OR [facility] [place] PPOPolicy Number: [facility] 64221Pva: (330) [id number] 57134Gby: (330) Repository [phone] () Date:0661-69-72Zkfl [phone] () Name:CARE 07/26/2018 LEXI WILSONDOB: Primary LEXI WILSONDOB: [facility] Insurance:MEDICARE [id number] [facility] [place] PPOPolicy Number: [facility] 706[address]Ewj: (330) [id number] 16651Fol: (330) Repository [phone] () Date:6515-74-88Uojd [phone] (HP) Name:CARE 07/14/2018 LEXI DICKINSON341 Primary LEXI D [facility] [place] [id number] Hospital 79333Mev: (330) ADVANTAPolicy Number: Repository [phone] (HP) [id number] Date:3937-92-62[place] 7378848WP: 07/14/2018 Secondary NOT GIVENUNK Edith Insurance:SELF PAY [facility] Number: Effective Repository Date:2018-07-13 07/01/2018 LEXI WILSONDOB: Primary LEXI WILSONDOB: [facility] Insurance:MEDICARE [id number] [facility] [place] [facility]: [place] [facility] 58658Uxa: (330) [id number] 51549Sjo: (330) Repository [phone] () Date:9689-78-58Xncx [phone] () Name:CARE 06/30/2018 LEXI WILSONDOB: Primary LEXI WILSONDOB: [facility] Insurance:MEDICARE [id number] [facility] [place] [facility] Number: [place] [facility] 50759Tqz: (330) [id number]: (330) Repository [phone] () Date:1266-16-86Uphv [phone] () Name:CARE 06/29/2018 LEXI WILSONDOB: Primary LEXI WILSONDOB: [facility] Insurance:MEDICARE [id number] [facility] [place] [facility] Number: [place] [facility] 95090Mip: (330) [id number]: (330) Repository [phone] () Date:7235-10-22Kixx [phone] () Name:CARE 06/29/2018 LEXI WILSONDOB: Primary LEXI WILSONDOB: [facility] Insurance:MEDICARE [id number] [facility] [place] PPOPolicy Number: [place] [facility] 45150Vda: (330) [id number] 15430Ypt: (330) Repository [phone] () Date:8370-67-70Hkat [phone] () Name:CARE 06/20/2018 LEXI [place] Primary LEXI D [place] Insurance:JIGNESH MARREROB: [facility] [place]EN[place] [id number] Hospital 29690Krh: (330) ADVANTAPolicy Number: Repository [phone] () [id number] Date:9175-47-03Dg [address] [place] [address] 29664OM: 06/20/2018 Secondary NOT GIVENUNK [place] Insurance:SELF PAY [facility] Number: Effective Repository Date:2018-06-20 06/13/2018 LEXI DICKINSON341 Primary LEXI D Edith [place] Insurance:JIGNESH MARREROB: [facility] [place] [id number] Hospital 46191Nik: (330) ADVANTAPolicy Number: Repository [phone] () [id number] Date:7654-53-34Jf [address] [place] [address] 63796PF: 06/13/2018 Secondary NOT GIVENUNK [place] Insurance:SELF PAY [facility] Number: Effective Repository Date:2018-06-12 06/12/2018 LEXI DICKINSON341 Primary LEXI D [place] Insurance:JIGNESH MARREROB: [place] [id number] Hospital 26014Kul: (330) ADVANTAPolicy Number: Repository [phone] () [id number] Date:7508-28-60Xm [address] [place] [address] 61950OK: 06/12/2018 Secondary NOT GIVENUNK Edith Insurance:SELF PAY [facility] Number: Effective Repository Date:2018-06-12 06/03/2018 LEXI WILSONDOB: Primary LEXI WILSONDOB: [facility] Insurance:MEDICARE [id number] [facility] [place] PPOPolicy Number: JACQUELINEPATRICK [facility] 42159Uxr: (330) [id number] 85133Bov: (330) Repository [phone] () Date:2458-02-40Nozx 261 () Name:CARE 06/02/2018 LEXI WILSONDOB: Primary LEXI WILSONDOB: [facility] Insurance:MEDICARE [id number] [facility] [place] PPOPolicy Number: [place] [facility] 17365Btv: (330) [id number] 25248Koi: (330) Repository [phone] () Date:0461-59-00Njtl 2610 () Name:CARE 06/01/2018 LEXI WILSONDOB: Primary LEXI WILSONDOB: [facility] Insurance:MEDICARE [id number] [facility] [place] PPOPolicy Number: [place] [facility] 27873Njb: (330) [id number] 24990Rmh: (330) Repository [phone] () Date:7221-53-02Btax 261 () Name:CARE 06/01/2018 LEXI WILSONDOB: Primary LEXI WILSONDOB: [facility] Insurance:MEDICARE [id number] [facility] [place] [facility] 27072Bqy: (330) [id number]: (330) Repository [phone] () Date:0319-69-57Empq 92612 () Name:CARE 05/22/2018 LEXI D [id number] Primary LEXI D Edith [place] Insurance:JIGNESH DICKINSONDOB: [facility] [id number] Hospital 42435Tsq: (330) ADVANTAPolicy Number: Repository [phone] () [id number] Date:9066-74-48Br [address] [place] [address] 12944QQ: 05/22/2018 Secondary NOT GIVENUNK Edith Insurance:SELF PAY [facility] Number: Effective Repository Date:2018-05-22 05/16/2018 LEXI D [id number] Primary LEXI D Edith [place] Insurance:JIGNESH MARREROB: [facility] [id number] Hospital 61220Brq: (330) ADVANTAPolicy Number: Repository [phone] () [id number] Date:6604-04-84Ht [address] [place] [address] 98371FQ: 05/16/2018 Secondary NOT GIVENUNK [place] Insurance:SELF PAY [facility] Number: Effective Repository Date:2018-05-15 05/12/2018 LEXI D [id number] Primary LEXI D Edith [place] Insurance:JIGNESH MARREROB: [facility] [place] [id number] Hospital 70009Mkt: (330) ADVANTAPolicy Number: Repository [phone] () [id number] Date:4568-52-55Xd [address] [place] [address] 94898SA: 05/12/2018 Secondary NOT GIVENUNK Edith Insurance:SELF PAY [facility] Number: Effective Repository Date:2018-05-11 05/06/2018 LEXI WILSONDOB: Primary LEXI WILSONDOB: [facility] [id number] Insurance:MEDICARE [id number] [place] [facility] PPOPolicy Number: [place] [facility] 14149Qjq: (330) [id number] 64650Dab: (330) Repository [phone] (HP) Date:2727-42-04Sjon [phone] (HP) Name:CARE 05/05/2018 LEXI WILSONDOB: Primary LEXI WILSONDOB: [facility] Insurance:MEDICARE [id number] [facility] [place] PPOPolicy Number: [place] [facility] 12084Ydb: (330) [id number] 22728Mkq: (330) Repository [phone] () Date:0788-02-38Plcu [phone] (HP) Name:CARE 05/04/2018 LEXI WILSONDOB: Primary LEXI WILSONDOB: [facility] Insurance:MEDICARE [id number] [facility] [place] [facility]: [place] [facility] 53767Tra: (330) [id number] 06112Ldu: (330) Repository [phone] () Date:4664-42-90Npmv [phone] (HP) Name:CARE 05/04/2018 LEXI WILSONDOB: Primary LEXI WILSONDOB: [facility] Insurance:MEDICARE [id number] [facility] [place] [facility]: [place] [facility] 41522Uos: (330) [id number] 94334Las: (330) Repository [phone] () Date:4528-93-36Hhty [phone] (HP) Name:CARE 05/04/2018 LEXI WILSONDOB: Primary LEXI WILSONDOB: [facility] Insurance:MEDICARE [id number] [facility] [place] PPOPolicy Number: [facility] 25101Hrz: (330) [id number] 41722Dlk: (330) Repository [phone] () Date:3684-47-46Esot [phone] () Name:CARE 04/25/2018 LEXI [place] Primary LEXI D [place] Insurance:JIGNESH MARREROB: [place] [id number] Hospital 93423Cpw: (330) ADVANTAPolicy Number: Repository [phone] () [id number] Date:4018-38-89Mi [address] [place] [address] 57067LA: 04/25/2018 Secondary NOT GIVENUNK [place] Insurance:SELF PAY [facility] Number: Effective Repository Date:2018-04-25 04/15/2018 LEXI DICKINSON341 Primary LEXI D Edith [place] Insurance:JIGNESH MARREROB: [place] [id number] 05796Uwl: (330) ADVANTAPolicy Number: Repository [phone] () [id number] Date:4345-13-67Vl [address] [place] [address] 48533MO: 04/15/2018 Secondary NOT GIVENUNK [place] Insurance:SELF PAY [facility] Number: Effective Repository Date:2018-04-14 04/12/2018 LEXI DICKINSON341 Primary LEXI D Edith [place] Insurance:JIGNESH MARREROB: [place] [id number] Hospital 59134Jpx: (330) ADVANTAPolicy Number: Repository [phone] () [id number] Date:3342-89-06Gr [address] [place] [address] 81085MV: 04/12/2018 Secondary NOT GIVENUNK Edith Insurance:SELF PAY [facility] Number: Effective Repository Date:2018-04-11 03/29/2018 LEXI WILSONDOB: Primary LEXI WILSONDOB: [facility] [id number] Insurance:MEDICARE [id number] [facility] PPOPolicy Number: [place] 21268Thb: (330) [id number] 01410Gag: (330) Repository [phone] () Date:0173-72-09Kipd [phone] () Name:CARE 03/28/2018 LEXI DICKINSON341 Primary LEXI D [place] Insurance:JIGNESH MARREROB: Community [facility] [id number] Hospital 50276Hmu: (330) ADVANTAPolicy Number: Repository [phone] () [id number] Date:5192-28-81Pq [address] [place] [address] 06376OK: 03/28/2018 Secondary NOT GIVENUNK Edith Insurance:SELF PAY [facility] Number: Effective Repository Date:2018-03-28 03/13/2018 LEXI Tali [id number] Primary LEXI D Edith [place] Insurance:JIGNESH MARREROB: [place] [id number] Hospital 98379Lkw: (330) ADVANTAPolicy Number: Repository [phone] () [id number] Date:9247-69-62Oq [address] [place] [address] 44614QJ: 03/13/2018 Secondary NOT GIVENUNK [place] Insurance:SELF PAY [facility] Number: Effective Repository Date:2018-03-13 02/27/2018 LEXI D [id number] Primary LEXI D Edith [place] Insurance:JIGNESH DICKINSONB: [place] [id number] Hospital 46556Eku: (330) ADVANTAPolicy Number: Repository [phone] () [id number] Date:3772-90-75Jt [address] [place] [address] 91556XE: 02/27/2018 Secondary NOT GIVENUNK Edith Insurance:SELF PAY [facility] Number: Effective Repository Date:2018-02-27 02/14/2018 LEXI WILSONDOB: Primary LEXI WILSONDOB: [facility] [id number] Insurance:MEDICARE [id number] [place] [address] [place], [place] PPOPolicy Number: [facility] 48014Ohl: (330) [id number]: (330) Repository [phone] () Date:1322-95-05Bnqr [phone] () Name:CARE 02/13/2018 LEXI D [id number] Primary LEXI D [place] Insurance:JIGNESH MARREROB: [place] [id number] Hospital 71928Syo: (330) ADVANTAPolicy Number: Repository [phone] () [id number] Date:5943-57-31Fv [address] [place] [address] 34851QZ: 02/13/2018 Secondary NOT GIVENUNK Edith Insurance:SELF PAY [facility] Number: Effective Repository Date:2018-02-13 02/13/2018 LEXI D [id number] Primary LEXI D [place] Insurance:JIGNESH MARREROB: [place] [id number] Hospital 92068Peu: (330) ADVANTAPolicy Number: Repository [phone] () [id number] Date:8370-80-15Vg [address] [place] [address] 03473SN: 02/13/2018 Secondary NOT GIVENUNK [place] Insurance:SELF PAY [facility] Number: Effective Repository Date:2018-02-13 02/09/2018 LEXI D [id number] Primary LEXI D [place] Insurance:JIGNESH MARREROB: [place] [id number] Hospital 16112Ibi: (330) ADVANTAPolicy Number: Repository [phone] () [id number] Date:2477-87-09Ue [address] [place] [address] 24105AE: 02/09/2018 Secondary NOT GIVENUNK [place] Insurance:SELF PAY [facility] Number: Effective Repository Date:2018-02-09 12/15/2017 LEXI DICKINSON341 Primary LEXI D Edith [place] Insurance:JIGNESH MARREROB: [place] [id number] Hospital 33273Vin: (330) ADVANTAPolicy Number: Repository [phone] () [id number] Date:4665-71-72Iv [address] [place] [address] 57740NJ: 12/15/2017 Secondary NOT GIVENUNK [place] Insurance:SELF PAY [facility] Number: Effective Repository Date:2017-12-15 12/06/2017 LEXI [id number] Primary LEXI D Edith [place] Insurance:JIGNESH LEON: [place] [id number] Hospital 10221Knt: (330) ADVANTAPolicy Number: Repository [phone] () [id number] Date:2463-88-17Ft [address] [place] [address] 21508VO: 12/06/2017 Secondary NOT GIVENUNK Edith Insurance:SELF PAY [facility] Number: Effective Repository Date:2017-12-06
== END ==
PROVIDERS: Family Provider Family Medicine; PCP Family Medicine
DX: C83.19 Mantle cell lymphoma, extranodal and solid organ sites (principal)
CPT/HCPCS: 36430; 86900; 86965; J7030; J7040; P9037; A4216

== ENCOUNTER → 2018-08-11 11:16 | Outpatient (CLI) | payer MEDICARE, SELFPAY ==
[2018-08-08 11:04] VITALS: BMI 25.5
[2018-08-11 11:28] VITALS: BP 124/79; PULSE 73; RESP 18; TEMP 36.5; O2SAT 100; BMI 25.5
[2018-08-11] MEDS: Acetaminophen 325 MG Tablet 650 MG PO (11:41)
[2018-08-11] MEDS: DiphenhydrAMINE 25 MG Capsule PO (11:41)
[2018-08-11 12:22] VITALS: BP 109/74; PULSE 85; RESP 16; TEMP 36.3
[2018-08-11 14:02] VITALS: BP 122/76; PULSE 81; RESP 18; TEMP 36.7; O2SAT 100
--- OUTSIDE RECORDS SUMMARY | 2018-09-27 04:05 | XMS RPT_ITS ---
:1945 Author Organization [place] Support Name Relationship Address Phone R Unavailable Unavailable Unavailable TEENA, TED Unavailable [address] + [place] [address] R Unavailable Unavailable Unavailable TEENA, TED Unavailable [address] + [place] [address] R Unavailable Unavailable Unavailable TEENA, TED Unavailable [address] + [place] [address] R Unavailable Unavailable Unavailable TEENA, TED Unavailable [address] + [place] [address] TEENA, TED Unavailable [address] + [place] [address] TEENA, ANCELMO Unavailable Unavailable Unavailable TEENA, LEXI Unavailable Unavailable Unavailable TEENA, TED Unavailable [address] + [place] [address] TEENA, ANCELMO Unavailable Unavailable Unavailable TEENA, LEXI Unavailable Unavailable Unavailable TEENA, TED Unavailable [address] + [place] [address] TEENA, ANCELMO Unavailable Unavailable Unavailable TEENA, LEXI Unavailable Unavailable Unavailable TEENA, TED Unavailable [phone] [place] [address] TEENA, ANCELMO Unavailable Unavailable Unavailable TEENA, LEXI Unavailable Unavailable Unavailable TEENA, TED Unavailable [address] + [place] [address] TEENA, TED Unavailable [address] + [place] [address] R Unavailable Unavailable Unavailable TEENA, TED Unavailable [address] + [place] [address] R Unavailable Unavailable Unavailable TEENA, TED Unavailable [address] + [place] [address] TEENA, TED Unavailable [address] + [place] [address] TEENA, ANCELMO Unavailable Unavailable Unavailable TEENA, LEXI Unavailable Unavailable Unavailable TEENA, TED Unavailable [address] + [place] [address] TEENA, ANCELMO Unavailable Unavailable Unavailable TEENA, LEXI Unavailable Unavailable Unavailable TEENA, TED Unavailable [address] + [place] [address] TEENA, ANCELMO Unavailable Unavailable Unavailable TEENA, LEXI Unavailable Unavailable Unavailable TEENA, TED Unavailable [address] + [place] [address] TEENA, ANCELMO Unavailable Unavailable Unavailable TEENA, LEXI Unavailable Unavailable Unavailable TEENA, TED Unavailable [address] + [place] [address] TEENA, ANCELMO Unavailable Unavailable Unavailable TEENA, LEXI Unavailable Unavailable Unavailable TEENA, TED Unavailable [address] + [place] [address] TEENA, ANCELMO Unavailable Unavailable Unavailable TEENA, LEXI Unavailable Unavailable Unavailable R Unavailable Unavailable Unavailable TEENA, TED Unavailable [address] + [place] [address] TEENA, TED Unavailable [address] + [place] [address] TEENA, ANCELMO Unavailable Unavailable Unavailable TEENA, LEXI Unavailable Unavailable Unavailable TEENA, TED Unavailable [address] + [place] [address] TEENA, ANCELMO Unavailable Unavailable Unavailable TEENA, LEXI Unavailable Unavailable Unavailable TEENA, TED Unavailable [address] + [place] [address] TEENA, ANCELMO Unavailable Unavailable Unavailable TEENA, LEXI Unavailable Unavailable Unavailable TEENA, TED Unavailable [address] + [place] [address] TEENA, ANCELMO Unavailable Unavailable Unavailable TEENA, LEXI Unavailable Unavailable Unavailable R Unavailable Unavailable Unavailable TEENA, TED Unavailable [address] + [place] [address] R Unavailable Unavailable Unavailable TEENA, TED Unavailable [address] + [place] [address] R Unavailable Unavailable Unavailable TEENA, TED Unavailable [address] + [place] [address] TEENA, TED Unavailable [address] + [place] [address] TEENA, ANCELMO Unavailable Unavailable Unavailable TEENA, LEXI Unavailable Unavailable Unavailable TEENA, TED Unavailable [address] [facility] + [place] [address] TEENA, ANCELMO Unavailable Unavailable Unavailable TEENA, LEXI Unavailable Unavailable Unavailable TEENA, TED Unavailable [address] + [place] [address] TEENA, ANCELMO Unavailable Unavailable Unavailable TEENA, LEXI Unavailable Unavailable Unavailable TEENA, TED Unavailable [address] + [place] [address] TEENA, ANCELMO Unavailable Unavailable Unavailable TEENA, LEXI Unavailable Unavailable Unavailable R Unavailable Unavailable Unavailable TEENA, TED Unavailable [address] + [place] [address] R Unavailable Unavailable Unavailable TEENA, TED Unavailable [address] + [place] [address] R Unavailable Unavailable Unavailable TEENA, TED Unavailable [address] + [place] [address] TEENA, TED Unavailable [address] + [place] [address] TEENA, ANCELMO Unavailable Unavailable Unavailable TEENA, LEXI Unavailable Unavailable Unavailable TEENA, TED Unavailable [address] + [place] [address] TEENA, ANCELMO Unavailable Unavailable Unavailable TEENA, LEXI Unavailable Unavailable Unavailable TEENA, TED Unavailable [address] + [place] [address] TEENA, ANCELMO Unavailable Unavailable Unavailable TEENA, LEXI Unavailable Unavailable Unavailable TEENA, TED Unavailable [address] + [place] [address] TEENA, ANCELMO Unavailable Unavailable Unavailable TEENA, LEXI Unavailable Unavailable Unavailable TEENA, TED Unavailable [address] + [place] [address] TEENA, ANCELMO Unavailable Unavailable Unavailable TEENA, LEXI Unavailable Unavailable Unavailable R Unavailable Unavailable Unavailable TEENA, TED Unavailable [address] + [place] [address] R Unavailable Unavailable Unavailable TEENA, TED Unavailable [address] + [place] [address] R Unavailable Unavailable Unavailable TEENA, TED Unavailable [address] + [place] [address] TEENA, TED Unavailable [address] + [place] [address] TEENA, ANCELMO Unavailable Unavailable Unavailable TEENA, LEXI Unavailable Unavailable Unavailable R Unavailable Unavailable Unavailable TEENA, TED Unavailable [address] [address] [address] + [place] [address] R Unavailable Unavailable Unavailable TEENA, TED Unavailable [address] + [place] [address] R Unavailable Unavailable Unavailable TEENA, TED Unavailable [address] + [place] [address] TEENA, TED Unavailable [address] + [place] [address] TEENA, ANCELMO Unavailable Unavailable Unavailable TEENA, LEXI Unavailable Unavailable Unavailable R Unavailable Unavailable Unavailable TEENA, TED Unavailable [address] + [place] [address] R Unavailable Unavailable Unavailable TEENA, TED Unavailable [address] + [place] [address] R Unavailable Unavailable Unavailable TEENA, TED Unavailable [address] + [place] [address] R Unavailable Unavailable Unavailable TEENA, TED Unavailable [address] [address] + [place] [address] R Unavailable Unavailable Unavailable TEENA, TED Unavailable [address] + [place] [address] Care Team Providers Name Role Phone ZEENAT GREWAL Attending Unavailable LUIS ALBERTO TATUM Referring Unavailable LUIS ALBERTO TATUM A Primary Care Unavailable ZEENAT GREWAL Attending Unavailable ZEENAT GREWAL Referring Unavailable LUIS ALBERTO TATUM A Primary Care Unavailable ZEENAT GREWAL Attending Unavailable ZEENAT GREWAL Referring Unavailable LUIS ALBERTO TATUM A Primary Care Unavailable ZEENAT GREWAL Attending Unavailable ZEENAT GREWAL Referring Unavailable LUIS ALBERTO TATUM A Primary Care Unavailable ZEENAT GREWAL Attending Unavailable LUIS ALBERTO TATUM Referring Unavailable LUIS ALBERTO TATUM A Primary Care Unavailable ZEENAT GREWAL Attending Unavailable ZEENAT GREWAL Referring Unavailable DEEPTI, LUIS ALBERTO A Primary Care Unavailable DEEPTI, LUIS ALBERTO A Referring Unavailable DEEPTI, LUIS ALBERTO A Primary Care Unavailable AYANA AZEVEDO Attending Unavailable ZEENAT GREWAL Attending Unavailable ZEENAT GREWAL Referring Unavailable DEEPTI, LUIS ALBERTO A Primary Care Unavailable MADDOZEENAT TOLENTINO Attending Unavailable ZEENAT GREWAL Referring Unavailable DEEPTI, LUIS ALBERTO A Primary Care Unavailable ZEENAT GREWAL Attending Unavailable ZEENAT GREWAL Referring Unavailable DEEPTI, LUIS ALBERTO A Primary Care Unavailable MADDOCKZEENAT Ellis Attending Unavailable LEONARDDOCKSZEENAT Referring Unavailable DEEPTI, LUIS [...] DEEPTI, LUIS ALBERTO A Primary Care Unavailable STEPHANIE VILLALTA Admitting Unavailable KARRI YBARRA Referring Unavailable DEEPTI, LUIS ALBERTO A Primary Care Unavailable ZEENAT GREWAL Attending Unavailable ZEENAT GREWAL Attending Unavailable ZEENAT GREWAL Referring Unavailable DEEPTI, LUIS ALBERTO A Primary Care Unavailable ZEENAT GREWAL Attending Unavailable ZEENAT GREWAL Referring Unavailable DEEPTI, LUIS ALBERTO A Primary Care Unavailable LESTER EATON Attending Unavailable KISHORE AMARO Referring Unavailable DEEPTI, LUIS ALBERTO A Primary Care Unavailable ZEENAT GREWAL Attending Unavailable ZEENAT GREWAL Referring Unavailable DEEPTI, LUIS ALBERTO A Primary Care Unavailable ZEENAT GREWAL Attending Unavailable ZEENAT GREWAL Referring Unavailable DEETPI, LUIS ALBERTO A Primary Care Unavailable ZEENAT GREWAL Attending Unavailable DEEPTI, LUIS ALBERTO A Referring Unavailable DEEPTI, LUIS ALBERTO A Primary Care Unavailable ZEENAT GREWAL Attending Unavailable SHAWNACKZEENAT Ellis Referring Unavailable DEEPTI, LUIS ALBERTO A Primary Care Unavailable DEEPA BYNUM Admitting Unavailable SOUTHERN, JOANN P Referring Unavailable DEEPTI, LUIS ALBERTO A Primary Care Unavailable JEFFREY ALMAGUER Attending Unavailable PHYSICIAN, NOT RECORDED Attending Unavailable MANDIE GONSALEZ, HARDEEP Saha JR. 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, lymph Hospital nodes of multiple Repository sites / C83.38(ICD-10) 09/11/2018 Unknown C83.10 - Mantle PraKarri trimble Active [place] cell lymphoma, Community unspecified site / Hospital C83.10(ICD-10) Repository 07/27/2018 Admitting Other malaise / USCIO, AYANA Active [place] diagnosis R53.81(ICD-10) [facility] Repository 07/26/2018 Admitting Mantle cell MADDOCKS, ZEENAT Active [place] diagnosis lymphoma, [place] extranodal and [facility] solid organ sites / Center C83.19(ICD-10) Repository 05/22/2018 Unknown Z85.72 - Personal Karri Ybarra Active [place] history of [facility] lymphomas / Repository Z85.72(ICD-10) 05/12/2018 Unknown D64.9 - Anemia, ADRIANNE PUGH Active [place] unspecified / Community D64.9(ICD-10) Hospital Repository 04/02/2018 Admitting Unspecified mood MADDOCKS, ZEENAT Active [place] diagnosis (affective) [place] disorder / [facility] F39(ICD-10) Center Repository 03/30/2018 Admitting Pain, unspecified / MADDOCKS, ZEENAT Active [place] diagnosis R52(ICD-10) [facility] Repository 03/29/2018 Admitting Mantle cell MADDOCKS, ZEENAT Active [place] diagnosis lymphoma, [place] unspecified site / [facility] Medical C83.10(ICD-10) Center Repository 02/17/2018 Admitting Other pancytopenia JEFFREY ALMAGUER Active [place] diagnosis / D61.818(ICD-10) [facility] Repository 02/13/2018 Unknown R53.83 - Other Luis Alberto Tatum Active [place] fatigue / Community R53.83(ICD-10) Hospital Repository 02/13/2018 Unknown D61.818 - Other Luis Alberto Tatum Active [place] pancytopenia / Community D61.818(ICD-10) Hospital Repository 02/13/2018 Unknown E83.52 - Luis Alberto Tatum Active [place] Hypercalcemia / Community E83.52(ICD-10) Hospital Repository 02/13/2018 Unknown E80.6 - Other Luis Alberto Tatum Active [place] disorders of [facility] metabolism / Repository E80.6(ICD-10) 02/13/2018 Unknown N18.3 - Chronic Luis Alberto Tatum Active [place] kidney disease, [facility] stage 3 (moderate) Hospital / N18.3(ICD-10) Repository PROCEDURES PROCEDURES No Procedure Records FoundRESULTS RESULTS PET/CT TUMOR BASE Observed: 09/18/2018 Status: F Source: [facility] SUBS 11:06 AM [facility] REPOSITORY [facility] Imaging Services [address] [place] [address] PET/CT Tumor Base -Thigh Subs MR#: [id number] Acct: [id number] Name: LEXI DICKINSON Rep #: [id number] : 1945 M 73 From: Hardeep Romano DO PCP: Luis Alberto Tatum DO Status: REG RCR Study: PET/CT Tumor Base -Thigh Subs Date of Exam: 09/18/18 Exam# [id number] Ordering Dr: Karri Ybarra MD EXAMINATION: FDG [...] , CC: Karri Ybarra MD; Luis Alberto Tatum DO Pulp Drier: Signed ONCOLOGY VISIT REPORT Observed: 09/11/2018 Status: F Source: [place] 3:16 PM [facility] REPOSITORY [facility] Medical Oncology [address] [place] [address] OFFICE VISIT Date of Service: 09/11/18 1511 MR#: [id number] Acct: [id number] Name: LEXI DICKINSON Rep #: [id number] : 1945 From: Karri Ybarra MD Age/Sex: 73/M Location: [facility] Status: Signed Subjective - Date of Service [...] BID 02/27/18 Primary Care Provider: Luis Alberto Tatum DO Referring Provider: - Problem List (1) History of non-Hodgkin's lymphoma Status: Chronic (2) Mantle cell lymphoma Status: Chronic Qualifiers: Lymphoma site: unspecified region Qualified Code(s): C83.10 - Mantle cell lymphoma, unspecified site Code Visit Office Visits / Consults: 84615 OV L3 Est 09/11/18 0142 <Electronically signed by Karri Ybarra MD> Date Karri Ybarra MD Cosigner Signature: Date (if applicable) CC: CBC W/DIFF, AUTOMATED Collected: 09/11/2018 Status: F Source: [place] 2:18 PM [facility] REPOSITORY Order Comment: Reason for Laboratory Test [...] 1+ ANISO. Performed By: #### L100.0100 #### [facility] [address] [place], [place], [address] COMPREHENSIVE METABOLIC Collected: 09/11/2018 Status: F Source: [facility] 2:18 PM [facility] REPOSITORY Order Comment: Reason for Laboratory Test [...] GAP 10 Performed By: #### L500.4050 #### [facility] [address] [place], [place], [address] ABO RH BLOOD TYPE, Collected: 09/07/2018 Status: P Source: [place] PATIENT 10:42 AM [facility] REPOSITORY Order Comment: CMV NEG? N Give When? 09/08/18 Irradiated? Y TYPE CODE TESTS RESULT OUT OF RANGE REFERENCE UNITS LAB B10.0800 O Normal BLOOD POSITIVE TYPE GEL Performed By: #### B10.0010 #### [facility] [place], [place], [address] ABO RH BLOOD TYPE, Collected: 09/07/2018 Status: F Source: [place] PATIENT 10:42 AM [facility] REPOSITORY Order Comment: CMV NEG? N Give When? 09/08/18 Irradiated? Y TYPE CODE TESTS RESULT OUT OF RANGE REFERENCE UNITS LAB B10.0800 O Normal BLOOD POSITIVE TYPE GEL Performed By: #### B10.0010 #### [facility] [address] [place], [place], [address] PPHR Collected: 09/07/2018 Status: F Source: [place] 10:42 AM [facility] REPOSITORY TYPE CODE TESTS RESULT OUT OF REFERENCE UNITS RANGE LAB U100.0700 [id number] TRANSFUSED PRODUCT: Platelets Apheresis PPHR LR SD COUNT: 1 Performed By: #### U100.0700 #### Non-[facility] Laboratory - refer to report for specific site CBC W/DIFF, AUTOMATED Collected: 09/07/2018 Status: C Source: [place] 10:38 AM [facility] REPOSITORY Order Comment: Reason for Laboratory Test [...] as: December Performed By: #### L100.0100 #### [facility] [address] [place], [address] ONCOLOGY VISIT REPORT Observed: 09/04/2018 Status: F Source: [place] 3:20 PM [facility] REPOSITORY [facility] [place] [facility] [address] [place] [address] OFFICE VISIT Date of Service: 09/04/18 1507 MR#: [id number] Acct: [id number] Name: LEXI DICKINSON Rep #: [id number] : 1945 From: Karri Ybarra MD Age/Sex: 73/M Location: [facility] Status: Signed Subjective - Date of Service [...] BID 02/27/18 Primary Care Provider: Luis Alberto Tatum DO Referring Provider: - Problem List (1) History of non-Hodgkin's lymphoma Status: Chronic (2) Mantle cell lymphoma Status: Chronic Qualifiers: Lymphoma site: unspecified region Qualified Code(s): C83.10 - Mantle cell lymphoma, unspecified site Code Visit Office Visits / Consults: 08784 OV L5 Est 09/04/18 1520 <Electronically signed by Karri Ybarra MD> Date Karri Ybarra MD Cosigner Signature: Date (if applicable) CC: COMPREHENSIVE METABOLIC Collected: 09/04/2018 Status: F Source: [place] PROFIL 1:55 PM [facility] REPOSITORY Order Comment: Reason for Laboratory Test [...] 6 Performed By: #### L500.4050, L504.2610 #### [facility] [address] [place], [address] LDH Collected: 09/04/2018 Status: F Source: [place] 1:55 PM [facility] REPOSITORY Order Comment: Reason for Laboratory Test . Serial Specimen #1, #2 or #3? 1 TYPE CODE TESTS RESULT OUT OF RANGE REFERENCE UNITS LAB L504.2610 87-241 U/L Normal LDH 127 Performed By: #### L500.4050, L504.2610 #### [facility] [place], [address] CBC W/DIFF, AUTOMATED Collected: 09/04/2018 Status: C Source: [place] 1:55 PM [facility] REPOSITORY Order Comment: Reason for Laboratory Test [...] Bella yulia Performed By: #### L100.0100 #### [facility] [place], [address] CBC WITH DIFF BOLIVAR Collected: 08/24/2018 Status: F Source: [facility] 8:42 AM [facility] REPOSITORY TYPE CODE TESTS RESULT OUT OF [...] Lymph 1.76 LAB AMONO 0.24-0.93 K/uL Abs [place] 0.56 LAB AEOS 0.00-0.48 K/uL Abs Eos 0.04 LAB ABASO 0.00-0.09 K/uL Abs Baso 0.04 Performed By: #### CBCDFJ #### [place] BECK, [facility] [address] [place] [address] CALCIUM - CHRI Collected: 08/24/2018 Status: F Source: [facility] 8:42 AM [facility] REPOSITORY TYPE CODE TESTS RESULT OUT OF REFERENCE UNITS RANGE LAB CA 8.6-10.5 mg/dL Calcium 9.2 Performed By: #### CBCDFJ #### [place], [facility] [address] [place] [address] CHEM 6 - CHRI Collected: 08/24/2018 Status: F Source: [facility] 8:42 [facility] REPOSITORY TYPE CODE TESTS RESULT OUT OF REFERENCE UNITS RANGE LAB BUN 7-22 mg/dL BUN High 23 LAB CREA 0.70-1.30 mg/dL High Creatinine 1.31 LAB NA 133-143 mmol/L Sodium 137 LAB K 3.5-5.0 mmol/L Potassium 4.0 LAB CL 98-108 mmol/L Chloride 105 LAB CO2 22-30 mmol/L Carbon Dioxide 26 LAB GFR >60 mL/min/1.73 Low sqM Est GFR,non 54 Nigerian LAB GFRA >60 mL/min/1.73 sqM Est GFR, >60 LAB GAP 7-17 mmol/L Anion Gap 10 Performed By: #### CBCDFJ #### [place] BECK, [facility] [address] [place] [address] GLUCOSE - CHRI Collected: 08/24/2018 Status: F Source: [facility] 8:42 AM [facility] REPOSITORY TYPE CODE TESTS RESULT OUT OF REFERENCE UNITS RANGE LAB GLUC 70-99 mg/dL High Glucose 107 Performed By: #### CBCDFJ #### [place] CCCAddy, [facility] [address] [place] [address] HEPATIC FUNCTIONS - Collected: 08/24/2018 Status: F Source: [facility] 8:42 AM [facility] REPOSITORY TYPE CODE TESTS RESULT OUT OF REFERENCE UNITS RANGE LAB AST 14-40 U/L AST 19 LAB ALT 10-52 U/L ALT 19 LAB ALP 32-126 U/L Alkaline Phosphatase 88 LAB ALB 3.5-5.0 g/dL Albumin 4.3 LAB BILD <0.3 mg/dL Bilirubin Direct 0.1 LAB BILT <1.5 mg/dL Bilirubin Total 0.4 LAB TP 6.4-8.3 g/dL Total Protein 6.6 Performed By: #### CBCDFJ #### [place] [facility], [facility] [address] [place], [place] [address] TYPE AND SCREEN Collected: 08/10/2018 Status: P Source: [place] 9:25 AM [facility] REPOSITORY Order Comment: CMV NEG?* N Give When? 08/11/18 Irradiated? Y Leukodepleted? Y Reason for Type AND Screen/Red Cells: ANEMIA TYPE CODE TESTS RESULT OUT OF RANGE REFERENCE UNITS LAB B10.0800 O Normal BLOOD TYPE GEL POSITIVE LAB B100.4000 Normal Antibody NEGATIVE Screen Performed By: #### B101.7450 #### [facility] [address] [place] [address], [address] TYPE AND SCREEN Collected: 08/10/2018 Status: F Source: [place] 9:25 AM [facility] REPOSITORY Order Comment: CMV NEG?* N Give When? 08/11/18 Irradiated? Y Leukodepleted? Y Reason for Type AND Screen/Red Cells: ANEMIA TYPE CODE TESTS RESULT OUT OF RANGE REFERENCE UNITS LAB B10.0800 O Normal BLOOD TYPE GEL POSITIVE LAB B100.4000 Normal Antibody NEGATIVE Screen Performed By: #### B101.7450 #### [facility] [address] [place] [address]. [place], [address] Collected: 08/10/2018 Status: F Source: [place] 9:25 AM [facility] REPOSITORY TYPE CODE TESTS RESULT OUT OF REFERENCE UNITS RANGE LAB U100.0000 [id number] TRANSFUSED PRODUCT: T AND S with Crossmatch, Red Cells COUNT: 1 Performed By: #### U100.0000 #### Non-[facility] - refer to report for specific site ABO RH BLOOD TYPE, Collected: 08/07/2018 Status: P Source: [place] PATIENT 8:55 AM [facility] REPOSITORY Order Comment: PLT COUNT IS 13K CMV NEG? N Give When? 08/08/18 Irradiated? Y TYPE CODE TESTS RESULT OUT OF RANGE REFERENCE UNITS LAB B10.0800 O Normal BLOOD POSITIVE TYPE GEL Performed By: #### B10.0010 #### [facility] [address] [place], [place], [address] ABO RH BLOOD TYPE, Collected: 08/07/2018 Status: F Source: [place] PATIENT 8:55 AM [facility] REPOSITORY Order Comment: PLT COUNT IS 13K CMV NEG? N Give When? 08/08/18 Irradiated? Y TYPE CODE TESTS RESULT OUT OF RANGE REFERENCE UNITS LAB B10.0800 O Normal BLOOD POSITIVE TYPE GEL Performed By: #### B10.0010 #### [facility] [address] [place], [address] PPHR Collected: 08/07/2018 Status: F Source: [place] 8:55 AM [facility] REPOSITORY TYPE CODE TESTS RESULT OUT OF REFERENCE UNITS RANGE LAB U100.0700 [id number] TRANSFUSED PRODUCT: Platelets Apheresis PPHR LR SD COUNT: 1 Performed By: #### U100.0700 #### Non-[facility] Laboratory - refer to report for specific site CALCIUM - CHRI Collected: 07/27/2018 Status: F Source: [facility] 8:43 AM [facility] REPOSITORY TYPE CODE TESTS RESULT OUT OF REFERENCE UNITS RANGE LAB CA 8.6-10.5 mg/dL Calcium 9.4 Performed By: #### CBCDFJ #### [place] CCCT, [facility] [address] [place], [place] [address] CHEM 6 - CHRI Collected: 07/27/2018 Status: F Source: [facility] 8:43 AM [facility] REPOSITORY TYPE CODE TESTS RESULT OUT OF REFERENCE UNITS RANGE LAB BUN 7-22 mg/dL BUN High 23 LAB CREA 0.70-1.30 mg/dL Creatinine 1.21 LAB NA 133-143 mmol/L Sodium 140 LAB K 3.5-5.0 mmol/L Potassium 4.0 LAB CL 98-108 mmol/L Chloride 106 LAB CO2 22-30 mmol/L Carbon Dioxide 27 LAB GFR >60 mL/min/1.73 Low sqM Est GFR,non 59 Nigerian LAB GFRA >60 mL/min/1.73 sqM Est GFR, >60 LAB GAP 7-17 mmol/L Anion Gap 11 Performed By: #### CBCDFJ #### [place] CCCT, [facility] [address] [place] [address] GLUCOSE - CHRI Collected: 07/27/2018 Status: F Source: [facility] 8:43 AM [facility] REPOSITORY TYPE CODE TESTS RESULT OUT OF REFERENCE UNITS RANGE LAB GLUC 70-99 mg/dL High Glucose 152 Performed By: #### CBCDFJ #### [place] CCCT, [facility] [address] [place] [address] HEPATIC FUNCTIONS - Collected: 07/27/2018 Status: F [facility]43 [facility] REPOSITORY TYPE CODE TESTS RESULT OUT OF REFERENCE UNITS RANGE LAB AST 14-40 U/L AST 19 LAB ALT 10-52 U/L ALT 23 LAB ALP 32-126 U/L Alkaline Phosphatase 86 LAB ALB 3.5-5.0 g/dL Albumin 4.3 LAB BILD <0.3 mg/dL Bilirubin Direct 0.1 LAB BILT <1.5 mg/dL Bilirubin Total 0.5 LAB TP 6.4-8.3 g/dL Total Protein 6.7 Performed By: #### CBCDFJ #### [place] CCCT, [facility] [address] [place] [address] CBC WITH DIFF BOLIVAR Collected: 07/27/2018 Status: F Source: [facility] 8:43 AM [facility] REPOSITORY TYPE CODE TESTS RESULT OUT OF [...] 0.59 Low LAB AMONO 0.24-0.93 K/uL Abs [place] 0.62 LAB AEOS 0.00-0.48 K/uL Abs Eos 0.06 LAB ABASO 0.00-0.09 K/uL Abs Baso 0.06 LAB OVALO OVALOCYTES Present LAB PLTEST PLATELET Automated ESTIMATE platelet count confirmed by manual slide review. LAB RMORPH Red Cell RBC indices Morphology confirmed by manual smear review. Performed By: #### CBCDFJ #### [facility] [address] [place], [place] [address] NUC PET LYMPHOMA Observed: 07/26/2018 Status: F Source: [facility] 11:33 AM [facility] REPOSITORY EXAM: NUC PET LYMPHOMA, 07/26/2018 11:23 [...] GLUCOSE BATTERY Collected: 07/26/2018 Status: F Source: [facility] 9:25 AM [facility] REPOSITORY TYPE CODE TESTS RESULT OUT OF REFERENCE UNITS RANGE LAB GLUP 70-99 mg/dL Glucose (poc 97 device) Result Comment: No BRAVE per RN: PATIENT TYPE LAB PCSTYP *POC Capillary SAMPLE TYPE Blood TYPE AND SCREEN Collected: 07/13/2018 Status: F Source: [place] 11:15 AM [facility] REPOSITORY Order Comment: CMV NEG?* N Give When? 07/14/18 Irradiated? Y Leukodepleted? Y Reason for Type AND Screen/Red Cells: ANEMIA TYPE CODE TESTS RESULT OUT OF RANGE REFERENCE UNITS LAB B10.0800 O Normal BLOOD TYPE GEL POSITIVE LAB B100.4000 Normal Antibody NEGATIVE Screen Performed By: #### B101.7450 #### [facility] [address] [place], [address] Collected: 07/13/2018 Status: F Source: [place] 11:15 AM [facility] REPOSITORY TYPE CODE TESTS RESULT OUT OF REFERENCE UNITS RANGE LAB U100.0000 [id number] TRANSFUSED PRODUCT: T AND S with Crossmatch, Red Cells COUNT: 2 Performed By: #### U100.0000 #### Non-[facility] - refer to report for specific site CALCIUM - CHRI Collected: 06/29/2018 Status: F Source: [facility] 8:16 AM [facility] REPOSITORY TYPE CODE TESTS RESULT OUT OF REFERENCE UNITS RANGE LAB CA 8.6-10.5 mg/dL Calcium 9.5 Performed By: #### UGOJ #### [place] CCCT, [facility] [address] [place] [address] CHEM 6 - CHRI Collected: 06/29/2018 Status: F Source: [facility] 8:16 AM [facility] REPOSITORY TYPE CODE TESTS RESULT OUT OF REFERENCE UNITS RANGE LAB BUN 7-22 mg/dL BUN 18 LAB CREA 0.70-1.30 mg/dL Creatinine 1.23 LAB NA 133-143 mmol/L Sodium 139 LAB K 3.5-5.0 mmol/L Potassium 4.3 LAB CL 98-108 mmol/L Chloride 105 LAB CO2 22-30 mmol/L Carbon Dioxide 27 LAB GFR >60 mL/min/1.73 Low sqM Est GFR,non 58 Nigerian LAB GFRA >60 mL/min/1.73 sqM Est GFR, >60 LAB GAP 7-17 mmol/L Anion Gap 11 Performed By: #### UGOJ #### [place] BECK, [facility] [address] [place] [address] GLUCOSE - CHRI Collected: 06/29/2018 Status: F Source: [facility] 8:16 AM [facility] REPOSITORY TYPE CODE TESTS RESULT OUT OF REFERENCE UNITS RANGE LAB GLUC 70-99 mg/dL High Glucose 129 Performed By: #### MISTYDFJ #### [place] CCCAddy, [facility] [address] [place] [address] HEPATIC FUNCTIONS - Collected: 06/29/2018 Status: F [facility] 8:16 AM [facility] REPOSITORY TYPE CODE TESTS RESULT OUT OF REFERENCE UNITS RANGE LAB AST 14-40 U/L AST 25 LAB ALT 10-52 U/L ALT 22 LAB ALP 32-126 U/L Alkaline Phosphatase 76 LAB ALB 3.5-5.0 g/dL Albumin 4.5 LAB BILD <0.3 mg/dL Bilirubin Direct 0.1 LAB BILT <1.5 mg/dL Bilirubin Total 0.7 LAB TP 6.4-8.3 g/dL Total Protein 6.9 Performed By: #### UGOJ #### [place] REYEST, [facility] [address] [place], [place] [address] CBC WITH DIFF BOLIVAR Collected: 06/29/2018 Status: F Source: [facility] 8:16 AM [facility] REPOSITORY TYPE CODE TESTS RESULT OUT OF [...] 0.73 Low LAB AMONO 0.30-0.82 K/uL Abs [place] 0.43 LAB AEOS <0.55 K/uL Abs Eos 0.23 LAB ABASO <0.09 K/uL Abs Baso 0.08 LAB PLTEST PLATELET Automated ESTIMATE platelet count confirmed by manual slide review. LAB RMORPH Red Cell RBC indices Morphology confirmed by manual smear review. Performed By: #### CBCDFJ #### [place] [facility], [facility] [address] [place], [place] [address] LD - CHRI Collected: 06/29/2018 Status: F Source: [facility] 8:16 AM [facility] REPOSITORY TYPE CODE TESTS RESULT OUT OF RANGE REFERENCE UNITS LAB LD 100-190 U/L High LD Total 261 EMERGENCY DEPARTMENT Observed: 06/12/2018 Status: F Source: [place] SUMMARY 11:38 PM [facility] REPOSITORY [facility] Medical Records Department [address] [place] [address] Emergency Department Summary 06/12/182012 MR#: [id number] Acct: [id number] Name: LEXI DICKINSON Rep #: [id number] : 1945 73 From: Rani Chaves MD PCP: Luis Alberto Tatum DO Status: DEP ER - ER Visit [...] of lymphoma This note was generated with [employer] dictation software. It may contain incorrect words, [...] problems, contact your Primary Care Provider. Call [facility] ([phone]) or report to the closest Emergency Room. Call 911 if necessary. 06/12/18 2338 <Electronically signed by Rani Chaves MD> Date Rani Chaves MD Cosigner Signature (If Indicated): Date CC: Luis Alberto Tatum DO DISCHARGE INSTRUCTION Observed: 06/12/2018 Status: F Source: [place] 10:11 PM [facility] REPOSITORY [facility] Medical Records Department [address] [place] [address] Discharge Instruction 06/12/18 2210 MR#: [id number] Acct: [id number] Name: LEXI DICKINSON Rep #: [id number] : 1945 73 From: Rani Chaves MD PCP: Luis Alberto Tatum DO Status: REG ER ED Disposition - [...] your Primary Care Provider. Call [facility] ([phone]) or report to the closest Emergency Room. Call 911 if necessary. 06/12/18 2211 <Electronically signed by Rani Chaves MD> Date Rani Chaves MD Cosigner Signature (If Indicated): Date CC: Luis Alberto Tatum DO URINALYSIS, COMPLETE Collected: 06/12/2018 Status: F Source: [place] 8:25 PM [facility] REPOSITORY Order Comment: Order Date: 06/12/18 How was Urine Obtained? [employer] OPERATOR TO SPECIFY TYPE CODE TESTS RESULT OUT [...] URINE SEEN Performed By: #### L400.0001 #### [facility] [address] [facility] [place], [address] BASIC METABOLIC Collected: 06/12/2018 Status: F Source: [place] PROFILE (BMP) 7:50 PM [facility] REPOSITORY TYPE CODE TESTS RESULT OUT OF [...] GAP 7 Performed By: #### L500.2500 #### [facility] [address] [facility] [place], [address] CBC W/DIFF, AUTOMATED Collected: 06/12/2018 Status: C Source: [place] 7:50 PM [facility] REPOSITORY TYPE CODE TESTS RESULT OUT OF [...] Lymph 0.42 Performed By: #### L100.0100 #### [facility] [address] [place], [address] ABDOMEN/PELVIS WITHOUT Observed: 06/12/2018 Status: F Source: [place] CONT 7:24 PM [facility] REPOSITORY [facility] Imaging Services [address] [place] [address] Abdomen/Pelvis without Cont MR#: [id number] Acct: [id number] Name: LEXI DICKINSON Rep #: [id number] : 1945 M 73 From: Bret Raygoza DO PCP: Luis Alberto Tatum DO Status: REG ER Study: Abdomen/Pelvis without Cont Date of Exam: 06/12/18 Exam# [id number] Ordering Dr: Rani Chaves MD STUDY: CT [...] , CC: Rani Chaves MD; Luis Alberto Tatum DO Pulp Drier: Signed TYPE AND SCREEN Collected: 06/12/2018 Status: P Source: [place] 8:05 AM [facility] REPOSITORY Order Comment: CMV NEG?* N CMV NEG? N Give When? 06/13/18 Irradiated? Y Leukodepleted? Y Reason for Type AND Screen/Red Cells: ANEMIA TYPE CODE TESTS RESULT OUT OF RANGE REFERENCE UNITS LAB B10.0800 O Normal BLOOD TYPE GEL POSITIVE LAB B100.4000 Normal Antibody NEGATIVE Screen Performed By: #### B101.7450 #### [facility] [address] [facility] [place], [place], [address] TYPE AND SCREEN Collected: 06/12/2018 Status: F Source: [place] 8:05 AM [facility] REPOSITORY Order Comment: CMV NEG?* N CMV NEG? N Give When? 06/13/18 Irradiated? Y Leukodepleted? Y Reason for Type AND Screen/Red Cells: ANEMIA TYPE CODE TESTS RESULT OUT OF RANGE REFERENCE UNITS LAB B10.0800 O Normal BLOOD TYPE GEL POSITIVE LAB B100.4000 Normal Antibody NEGATIVE Screen Performed By: #### B101.7450 #### [facility] [address] [place], [place], [address] PPHR Collected: 06/12/2018 Status: F Source: [place] 8:05 AM [facility] REPOSITORY TYPE CODE TESTS RESULT OUT OF REFERENCE UNITS RANGE LAB U100.0700 [id number] TRANSFUSED PRODUCT: Platelets Apheresis PPHR LR SD COUNT: 1 Performed By: #### U100.0700 #### Non-[facility] - refer to report for specific site RC Collected: 06/12/2018 Status: F Source: [place] 8:05 AM [facility] REPOSITORY TYPE CODE TESTS RESULT OUT OF REFERENCE UNITS RANGE LAB U100.0000 [id number] TRANSFUSED PRODUCT: T AND S with Crossmatch, Red Cells COUNT: 1 Performed By: #### U100.0000 #### [facility] - refer to report for specific site CBC W/DIFF, AUTOMATED Collected: 06/05/2018 Status: F Source: [place] 8:04 AM [facility] REPOSITORY Order Comment: IF CRITICAL CALL [phone] TYPE CODE TESTS RESULT OUT OF RANGE [...] Normal 2+ Performed By: #### L100.0100 #### [facility] [place], [address] COMPREHENSIVE METABOLIC Collected: 06/05/2018 Status: F Source: [place] 8:04 AM [facility] REPOSITORY Order Comment: IF CRITICAL CALL [phone] TYPE CODE TESTS RESULT OUT OF RANGE [...] GAP 8 Performed By: #### L500.4050 #### [facility] [address] [facility] [place], [place], [address] CALCIUM - CHRI Collected: 06/01/2018 Status: F Source: [facility] 8:35 AM [facility] REPOSITORY TYPE CODE TESTS RESULT OUT OF REFERENCE UNITS RANGE LAB CA 8.6-10.5 mg/dL Calcium 9.3 Performed By: #### CBCDFJ #### [place] [facility] [address] [place] [address] CHEM 6 - CHRI Collected: 06/01/2018 Status: F Source: [facility] 8:35 AM [facility] REPOSITORY TYPE CODE TESTS RESULT OUT OF REFERENCE UNITS RANGE LAB BUN 7-22 mg/dL BUN High 25 LAB CREA 0.70-1.30 mg/dL Creatinine 1.21 LAB NA 133-143 mmol/L Sodium 141 LAB K 3.5-5.0 mmol/L Potassium 4.1 LAB CL 98-108 mmol/L Chloride 107 LAB CO2 22-30 mmol/L Carbon Dioxide 26 LAB GFR >60 mL/min/1.73 Low sqM Est GFR,non 59 Nigerian LAB GFRA >60 mL/min/1.73 sqM Est GFR, >60 LAB GAP 7-17 mmol/L Anion Gap 12 Performed By: #### CBCDFJ #### [place] [facility] [address] [place] [address] GLUCOSE - CHRI Collected: 06/01/2018 Status: F Source: [facility] 8:35 AM [facility] REPOSITORY TYPE CODE TESTS RESULT OUT OF REFERENCE UNITS RANGE LAB GLUC 70-99 mg/dL High Glucose 131 Performed By: #### CBCDFJ #### [facility] [facility] [address] [place], [place] [address] HEPATIC FUNCTIONS - Collected: 06/01/2018 Status: F Source: [facility] CHRI 8:35 AM [facility] REPOSITORY TYPE CODE TESTS RESULT OUT OF REFERENCE UNITS RANGE LAB AST 14-40 U/L AST 17 LAB ALT 10-52 U/L ALT 16 LAB ALP 32-126 U/L Alkaline Phosphatase 74 LAB ALB 3.5-5.0 g/dL Albumin 4.1 LAB BILD <0.3 mg/dL Bilirubin Direct 0.2 LAB BILT <1.5 mg/dL Bilirubin Total 0.9 LAB TP 6.4-8.3 g/dL Total Protein 6.4 Performed By: #### CBCDFJ #### [place] CCCT, [facility] [address] [place] [address] CBC WITH DIFF BOLIVAR Collected: 06/01/2018 Status: F Source: [facility] 8:35 AM [facility] REPOSITORY TYPE CODE TESTS RESULT OUT OF [...] 0.14 Low LAB AMONO 0.30-0.82 K/uL Abs [place] 0.53 LAB AEOS <0.55 K/uL Abs Eos 0.05 LAB ABASO <0.09 K/uL Abs Baso 0.09 High LAB PLTEST PLATELET Automated ESTIMATE platelet count confirmed by manual slide review. LAB RMORPH Red Cell RBC indices Morphology confirmed by manual smear review. Performed By: #### CBCDFJ #### [place] CCCT, [facility] [address] [place], [place] [address] CBC W/DIFF, AUTOMATED Collected: 05/29/2018 Status: F Source: [place] 8:19 AM [facility] REPOSITORY Order Comment: IF CRITICAL CALL [phone] TYPE CODE TESTS RESULT OUT OF RANGE [...] LYMPHOPENIA NOTED. Performed By: #### L100.0100 #### [facility] [address] [place], [address] COMPREHENSIVE METABOLIC Collected: 05/29/2018 Status: F Source: [place] [facility] 8:19 AM [facility] REPOSITORY Order Comment: IF CRITICAL CALL [phone] TYPE CODE TESTS RESULT OUT OF RANGE [...] GAP 9 Performed By: #### L500.4050 #### [facility] [place], [address] CBC W/DIFF, AUTOMATED Collected: 05/25/2018 Status: F Source: [place] 8:01 AM [facility] REPOSITORY TYPE CODE TESTS RESULT OUT OF [...] Lymph 0.85 Performed By: #### L100.0100 #### [facility] [address] [place], [address] ONCOLOGY VISIT REPORT Observed: 05/22/2018 Status: F Source: [place] 2:09 PM [facility] REPOSITORY [facility] [address] [place] [address] OFFICE VISIT Date of Service: 05/22/18 1359 MR#: [id number] Acct: [id number] Name: LEXI DICKINSON Rep #: [id number] : 1945 From: Karri Ybarra MD Age/Sex: 72/M Location: [facility] Status: Signed Subjective - Date of Service [...] QWEEK 11/24/16 Primary Care Provider: Luis Alberto Tatum DO Referring Provider: - Problem List (1) History of non-Hodgkin's lymphoma Status: Chronic (2) Mantle cell lymphoma Status: Chronic Qualifiers: Lymphoma site: unspecified region Qualified Code(s): C83.10 - Mantle cell lymphoma, unspecified site Code Visit Office Visits / Consults: [id number] OV L3 Est 05/22/18 1409 <Electronically signed by Karri Ybarra MD> Date Karri Ybarra MD Cosigner Signature: Date (if applicable) CC: CBC W/DIFF, AUTOMATED Collected: 05/22/2018 Status: C Source: [place] 12:59 PM [facility] REPOSITORY Order Comment: IF CRITICAL CALL [phone] AND [id number] Reason for Laboratory Test . TYPE CODE [...] as: December Performed By: #### L100.0100 #### [facility] [address] [place], [place], [address] COMPREHENSIVE METABOLIC Collected: 05/22/2018 Status: F Source: [facility] 12:59 PM [facility] REPOSITORY Order Comment: IF CRITICAL CALL [phone] AND [phone] Reason for Laboratory Test . TYPE CODE [...] GAP 10 Performed By: #### L500.4050 #### [facility] [address] [place], [address] CBC W/DIFF, AUTOMATED Collected: 05/18/2018 Status: C Source: [place] 8:07 AM [facility] REPOSITORY Order Comment: IF CRITICAL CALL [phone] TYPE CODE TESTS RESULT OUT OF RANGE [...] Bella bender Performed By: #### L100.0100 #### [facility] [address], [address] TYPE AND SCREEN Collected: 05/15/2018 Status: F Source: [place] 8:15 AM [facility] REPOSITORY Order Comment: CMV NEG?* N CMV NEG? N Give When? 05/16/18 Irradiated? Y Leukodepleted? Y Reason for Type AND Screen/Red Cells: ANEMIA TYPE CODE TESTS RESULT OUT OF RANGE REFERENCE UNITS LAB B10.0800 O Normal BLOOD TYPE GEL POSITIVE LAB B100.4000 Normal Antibody NEGATIVE Screen Performed By: #### B101.7450 #### [facility] [address] [place], [address] PPHR Collected: 05/15/2018 Status: F Source: [place] 8:15 AM [facility] REPOSITORY TYPE CODE TESTS RESULT OUT OF REFERENCE UNITS RANGE LAB U100.0700 [id number] TRANSFUSED PRODUCT: Platelets Apheresis PPHR LR SD COUNT: 1 Performed By: #### U100.0700 #### [facility] - refer to report for specific site RC Collected: 05/15/2018 Status: F Source: [place] 8:15 AM [facility] REPOSITORY TYPE CODE TESTS RESULT OUT OF REFERENCE UNITS RANGE LAB U100.0000 [id number] TRANSFUSED PRODUCT: T AND S with Crossmatch, Red Cells COUNT: 1 Performed By: #### U100.0000 #### [facility] - refer to report for specific site COMPREHENSIVE METABOLIC Collected: 05/15/2018 Status: F Source: [facility] 8:08 AM [facility] REPOSITORY Order Comment: IF CRITICAL CALL [phone] TYPE CODE TESTS RESULT OUT OF RANGE [...] GAP 8 Performed By: #### L500.4050 #### [facility] [address] [place], [address] CBC W/DIFF, AUTOMATED Collected: 05/15/2018 Status: C Source: [place] 8:08 AM [facility] REPOSITORY Order Comment: IF CRITICAL CALL [phone] TYPE CODE TESTS RESULT OUT OF RANGE [...] VALUE VERIFIED. CALLED TO RAJENDRA BERG 05/15/18 0887 Deondre Mitchell RESULTS READ BACK BY SAME. [...] as: December Performed By: #### L100.0100 #### [facility] [place], [address] CBC W/DIFF, AUTOMATED Collected: 05/11/2018 Status: F Source: [place] 8:07 AM [facility] REPOSITORY Order Comment: IF CRITICAL CALL [phone] TYPE CODE TESTS RESULT OUT OF RANGE [...] LYMPHOPENIA NOTED. Performed By: #### L100.0100 #### [facility] [address] [place], [place], [address] TYPE AND SCREEN Collected: 05/11/2018 Status: F Source: [place] 8:05 AM [facility] REPOSITORY Order Comment: PRETRANSFUSION HGB = 8.0 HCT = 24.8 PERFORMED AT [facility] CMV NEG?* N Give When? 05/12/18 Irradiated? Y Leukodepleted? Y Reason for Type AND Screen/Red Cells: ANEMIA TYPE CODE TESTS RESULT OUT OF RANGE REFERENCE UNITS LAB B10.0800 O Normal BLOOD TYPE GEL POSITIVE LAB B100.4000 Normal Antibody NEGATIVE Screen Performed By: #### B101.7450 #### [facility] [address] [place], [address] Collected: 05/11/2018 Status: F Source: [place] 8:05 AM [facility] REPOSITORY TYPE CODE TESTS RESULT OUT OF REFERENCE UNITS RANGE LAB U100.0000 [id number] TRANSFUSED PRODUCT: T AND S with Crossmatch, Red Cells COUNT: 1 Performed By: #### U100.0000 #### Non-[facility] - refer to report for specific site COMPREHENSIVE METABOLIC Collected: 05/08/2018 Status: F Source: [facility] 8:13 AM [facility] REPOSITORY Order Comment: IF CRITICAL CALL [phone] Reason for Laboratory Test . TYPE CODE [...] GAP 11 Performed By: #### L500.4050 #### [facility] [address] [place], [address] CBC W/DIFF, AUTOMATED Collected: 05/08/2018 Status: F Source: [place] 8:13 AM [facility] REPOSITORY Order Comment: IF CRITICAL CALL [phone] Reason for Laboratory Test . TYPE CODE [...] Lymph 0.22 Performed By: #### L100.0100 #### [facility] [address] [place], [place], [address] CBC WITH DIFF BOLIVAR Collected: 05/04/2018 Status: F Source: [facility] 8:10 AM [facility] REPOSITORY TYPE CODE TESTS RESULT OUT OF [...] 0.15 Low LAB AMONO 0.30-0.82 K/uL Abs [place] 0.41 LAB AEOS <0.55 K/uL Abs Eos 0.06 LAB ABASO <0.09 K/uL Abs Baso 0.12 High LAB [employer] Present CELLS LAB TEARDR TEARDROP Present CELLS LAB PLTEST PLATELET Automated ESTIMATE platelet count confirmed by manual slide review. LAB RMORPH Red Cell RBC indices Morphology confirmed by manual smear review. Performed By: #### ULYSSES #### [place] BECK, [facility] [address] [place] [address] CALCIUM - CHRI Collected: 05/04/2018 Status: F Source: [facility] 8:10 [facility] REPOSITORY TYPE CODE TESTS RESULT OUT OF REFERENCE UNITS RANGE LAB CA 8.6-10.5 mg/dL Calcium 8.9 Performed By: #### MISTYDFJ #### [place] BECK, [facility] [address] [place] [address] CHEM 6 - CHRI Collected: 05/04/2018 Status: F Source: [facility] 8:10 [facility] REPOSITORY TYPE CODE TESTS RESULT OUT OF REFERENCE UNITS RANGE LAB BUN 7-22 mg/dL BUN 22 LAB CREA 0.70-1.30 mg/dL Creatinine 1.25 LAB NA 133-143 mmol/L Sodium 141 LAB K 3.5-5.0 mmol/L Potassium 4.1 LAB CL 98-108 mmol/L Chloride 107 LAB CO2 22-30 mmol/L Carbon Dioxide 28 LAB GFR >60 mL/min/1.73 Low sqM Est GFR,non 57 Nigerian LAB GFRA >60 mL/min/1.73 sqM Est GFR, >60 LAB GAP 7-17 mmol/L Anion Gap 10 Performed By: #### MISTYDFJ #### [place] [facility], [facility] [address] [place] [address] GLUCOSE - CHRI Collected: 05/04/2018 Status: F Source: [facility] 8:10 [facility] REPOSITORY TYPE CODE TESTS RESULT OUT OF REFERENCE UNITS RANGE LAB GLUC 70-99 mg/dL High Glucose 136 Performed By: #### MISTYDFJ #### [place] [facility] [address] [place], [place] [address] HEPATIC FUNCTIONS - Collected: 05/04/2018 Status: F Source: [facility] CHRI 8:10 AM [facility] REPOSITORY TYPE CODE TESTS RESULT OUT OF REFERENCE UNITS RANGE LAB AST 14-40 U/L AST 20 LAB ALT 10-52 U/L ALT 20 LAB ALP 32-126 U/L Alkaline Phosphatase 116 LAB ALB 3.5-5.0 g/dL Albumin 4.1 LAB BILD <0.3 mg/dL Bilirubin High Direct 0.3 LAB BILT <1.5 mg/dL Bilirubin Total 0.9 LAB TP 6.4-8.3 g/dL Total Protein 6.6 Performed By: #### CBCDFJ #### [place] [facility] [address] [place], [place] [address] CBC W/DIFF, AUTOMATED Collected: 05/02/2018 Status: F Source: [place] 7:58 AM [facility] REPOSITORY Order Comment: CALL CRITICAL TO [phone] TYPE CODE TESTS RESULT OUT OF RANGE [...] - LYMPHOPENIA. Performed By: #### L100.0100 #### [facility] [address] [place], [address] COMPREHENSIVE METABOLIC Collected: 05/02/2018 Status: F Source: [place] [facility] 7:58 AM [facility] REPOSITORY Order Comment: CALL CRITICAL TO [phone] TYPE CODE TESTS RESULT OUT OF RANGE [...] GAP 8 Performed By: #### L500.4050 #### [facility] [address] [place], [address] ONCOLOGY VISIT REPORT Observed: 05/01/2018 Status: F Source: [place] 4:48 PM [facility] REPOSITORY [facility] [address] [place] [address] OFFICE VISIT Date of Service: 04/25/18 1107 MR#: [id number] Acct: [id number] Name: LEXI DICKINSON Rep #: [id number] : 1945 From: Karri Ybarra MD Age/Sex: [...] QWEEK 11/24/16 Primary Care Provider: Luis Alberto Tatum DO Referring Provider: - Problem List (1) History of non-Hodgkin's lymphoma Status: Chronic (2) Mantle cell lymphoma Status: Chronic Qualifiers: Lymphoma site: unspecified region Qualified Code(s): C83.10 - Mantle cell lymphoma, unspecified site Code Visit Office Visits / Consults: [id number] OV L4 Est 05/01/18 1648 <Electronically signed by Karri Ybarra MD> Date Karri Ybarra MD Cosigner Signature: Date (if applicable) CC: CBC W/DIFF, AUTOMATED Collected: 04/27/2018 Status: F Source: [place] 8:11 AM [facility] REPOSITORY Order Comment: IF CRITICAL CALL [phone] Reason for Laboratory Test . TYPE CODE [...] COMMENT SCANNED Performed By: #### L100.0100 #### [facility] [place], [address] CBC W/DIFF, AUTOMATED Collected: 04/25/2018 Status: C Source: [place] 10:07 AM [facility] REPOSITORY Order Comment: CALL CRITICAL TO [phone] AND ONCOLOGY [facility] Reason for Laboratory Test . TYPE CODE [...] yulia Performed By: #### L100.0100, L500.4050 #### [facility] [address] [place], [address] COMPREHENSIVE METABOLIC Collected: 04/25/2018 Status: F Source: [place] 10:07 AM [facility] REPOSITORY Order Comment: CALL CRITICAL TO [phone] AND ONCOLOGY [facility] Reason for Laboratory Test . TYPE CODE [...] 8 Performed By: #### L100.0100, L500.4050 #### [facility] [address] [place], [address] CBC W/DIFF, AUTOMATED Collected: 04/20/2018 Status: C Source: [place] 8:08 AM [facility] REPOSITORY TYPE CODE TESTS RESULT OUT OF RANGE REFERENCE UNITS LAB L100.1000 4.4-11.0 K/mm3 Low alert WBC 1.0 Result Comment: CRITICAL VALUE VERIFIED. CALLED TO ARIK BERG 04/20/18 0845 Deondre Padilla. RESULTS READ BACK BY SAME. [...] as: December Performed By: #### L100.0100 #### [facility], [address] CBC W/DIFF, AUTOMATED Collected: 04/17/2018 Status: C Source: [place] 8:05 AM [facility] REPOSITORY Order Comment: IF CRITICAL CALL [phone] TYPE CODE TESTS RESULT OUT OF RANGE [...] May foll Performed By: #### L100.0100 #### [facility] [place], [address] COMPREHENSIVE METABOLIC Collected: 04/17/2018 Status: F Source: [place] VACA 8:05 AM [facility] REPOSITORY Order Comment: IF CRITICAL CALL [phone] TYPE CODE TESTS RESULT OUT OF RANGE [...] GAP 13 Performed By: #### L500.4050 #### [facility] [address] [place], [address] TYPE AND SCREEN Collected: 04/13/2018 Status: P Source: [place] 8:58 AM [facility] REPOSITORY Order Comment: CMV NEG?* N Give When? 04/15/18 Irradiated? Y Leukodepleted? Y Reason for Type AND Screen/Red Cells: ANEMIA TYPE CODE TESTS RESULT OUT OF RANGE REFERENCE UNITS LAB B10.0800 O Normal BLOOD TYPE GEL POSITIVE LAB B100.4000 Normal Antibody NEGATIVE Screen Performed By: #### B101.7450 #### [facility] [address] [place] [address]. [place], [address] TYPE AND SCREEN Collected: 04/13/2018 Status: P Source: [place] 8:58 AM [facility] REPOSITORY Order Comment: CMV NEG?* N Give When? 04/15/18 Irradiated? Y Leukodepleted? Y Reason for Type AND Screen/Red Cells: ANEMIA TYPE CODE TESTS RESULT OUT OF RANGE REFERENCE UNITS LAB B10.0800 O Normal BLOOD TYPE GEL POSITIVE LAB B100.4000 Normal Antibody NEGATIVE Screen Performed By: #### B101.7450 #### [facility] [address] [place] [address]. [place], [address] TYPE AND SCREEN Collected: 04/13/2018 Status: F Source: [place] 8:58 AM [facility] REPOSITORY Order Comment: CMV NEG?* N Give When? 04/15/18 Irradiated? Y Leukodepleted? Y Reason for Type AND Screen/Red Cells: ANEMIA TYPE CODE TESTS RESULT OUT OF RANGE REFERENCE UNITS LAB B10.0800 O Normal BLOOD TYPE GEL POSITIVE LAB B100.4000 Normal Antibody NEGATIVE Screen Performed By: #### B101.7450 #### [facility] [address] [place], [address] RC Collected: 04/13/2018 Status: F Source: [place] 8:58 AM [facility] REPOSITORY TYPE CODE TESTS RESULT OUT OF REFERENCE UNITS RANGE LAB U100.0000 [id number] TRANSFUSED PRODUCT: T AND S with Crossmatch, Red Cells COUNT: 1 Performed By: #### U100.0000 #### [facility] - refer to report for specific site CBC W/DIFF, AUTOMATED Collected: 04/13/2018 Status: C Source: [place] 8:47 AM [facility] REPOSITORY Order Comment: CALL CRITICAL TO [phone] TYPE CODE TESTS RESULT OUT OF RANGE REFERENCE UNITS LAB L100.1000 4.4-11.0 K/mm3 Low alert WBC 0.3 Result Comment: CRITICAL VALUE VERIFIED. CALLED TO JEFFREY AT [facility] 04/13/18 0915 Rani Ca. RESULTS READ [...] VERIFIED. CALLED TO JEFFREY AT [facility] 04/13/18 0915 Rani Ca. RESULTS READ [...] Bella bender Performed By: #### L100.0100 #### [facility] [address] [place], [place], [address] TYPE AND SCREEN Collected: 04/11/2018 Status: P Source: [place] 10:43 [facility] REPOSITORY Order Comment: CMV NEG?* N Give When? 04/12/18 Irradiated? Y Leukodepleted? Y Reason for Type AND Screen/Red Cells: ANEMIA TYPE CODE TESTS RESULT OUT OF RANGE REFERENCE UNITS LAB B10.0800 O Normal BLOOD TYPE GEL POSITIVE LAB B100.4000 Normal Antibody NEGATIVE Screen Performed By: #### B101.7450 #### [facility] [address] [place], [address] TYPE AND SCREEN Collected: 04/11/2018 Status: F Source: [place] 10:43 [facility] REPOSITORY Order Comment: CMV NEG?* N Give When? 04/12/18 Irradiated? Y Leukodepleted? Y Reason for Type AND Screen/Red Cells: ANEMIA TYPE CODE TESTS RESULT OUT OF RANGE REFERENCE UNITS LAB B10.0800 O Normal BLOOD TYPE GEL POSITIVE LAB B100.4000 Normal Antibody NEGATIVE Screen Performed By: #### B101.7450 #### [facility] [address] [place], [address] RC Collected: 04/11/2018 Status: F Source: [place] 10:43 AM [facility] REPOSITORY TYPE CODE TESTS RESULT OUT OF REFERENCE UNITS RANGE LAB U100.0000 [id number] TRANSFUSED PRODUCT: T AND S with Crossmatch, Red Cells COUNT: 1 Performed By: #### U100.0000 #### [facility] - refer to report for specific site BASIC METABOLIC Collected: 04/11/2018 Status: F Source: [place] PROFILE (BMP) 10:31 AM [facility] REPOSITORY Order Comment: CALL CRITICAL TO [phone] TYPE CODE TESTS RESULT OUT OF RANGE [...] 11 Performed By: #### L500.2500, L500.3400 #### [facility] [address] [place], [address] LIVER PROFILE Collected: 04/11/2018 Status: F Source: [place] 10:31 AM [facility] REPOSITORY Order Comment: CALL CRITICAL TO [phone] TYPE CODE TESTS RESULT OUT OF RANGE [...] 1.56 Performed By: #### L500.2500, L500.3400 #### [facility] [address] [place], [place], [address] CBC W/DIFF, AUTOMATED Collected: 04/11/2018 Status: C Source: [place] 10:31 [facility] REPOSITORY Order Comment: CALL CRITICAL TO [phone] TYPE CODE TESTS RESULT OUT OF RANGE [...] VALUE VERIFIED. CALLED TO BRY BERG 04/11/18 1121 Deondre Padilla. RESULTS READ BACK BY SAME. [...] as: December Performed By: #### L100.0100 #### [facility] [address] [place] [address]. [place], [address] *POC GLUCOSE BATTERY Collected: 04/10/2018 Status: F Source: [facility] 11:41 AM [facility] REPOSITORY TYPE CODE TESTS RESULT OUT OF REFERENCE UNITS RANGE LAB GLUP 70-99 mg/dL High Glucose (poc 125 device) Result Comment: No BRAVE per RN: PATIENT TYPE LAB PCSTYP *POC Capillary SAMPLE TYPE Blood *POC GLUCOSE BATTERY Collected: 04/10/2018 Status: F Source: [facility] 7:41 AM [facility] REPOSITORY TYPE CODE TESTS RESULT OUT OF REFERENCE UNITS RANGE LAB GLUP 70-99 mg/dL High Glucose (poc 153 device) Result Comment: No BRAVE per RN: PATIENT TYPE LAB PCSTYP *POC Capillary SAMPLE TYPE Blood CBC,PLATELET,DIFFERENTIAL - CCL Collected: Status: F Source: [facility] 04/10/2018 4:07 AM [facility] REPOSITORY TYPE CODE TESTS RESULT OUT OF [...] Low LAB AMONO 0.30-0. K/uL 82 Abs [place] 0.01 Low LAB AEOS <0.55 K/uL Abs Eos 0.00 LAB ABASO <0.09 K/uL Abs Baso 0.00 LAB POLYCH POLYCHROMASIA 1+ LAB TARGET TARGET CELLS Present LAB TEARDR TEARDROP CELLS Present LAB PLTEST PLATELET ESTIMATE Automated platelet count confirmed by manual slide review. Performed By: #### CBCDFC, CA, CHM7, HFP, IPB, LDO, MGO, URICB #### [facility] [address] [place] [id number] [facility] [address] [place] [address] CALCIUM Collected: 04/10/2018 Status: F Source: [facility] 4:07 AM [facility] REPOSITORY TYPE CODE TESTS RESULT OUT OF REFERENCE UNITS RANGE LAB CA 8.6-10.5 mg/dL Calcium 8.8 Performed By: #### CBCDFC, CA, CHM7, HFP, IPB, LDO, MGO, URICB #### [facility] [address] [place] [address] [facility] [address] [place] [address] CHEM 7 Collected: 04/10/2018 Status: F Source: [facility] 4:07 AM [facility] REPOSITORY TYPE CODE TESTS RESULT OUT OF [...] >60 mL/min/1.73 Low sqM Est GFR,non 57 Nigerian LAB GFRA >60 mL/min/1.73 sqM Est GFR, >60 Performed By: #### CBCDFC, CA, CHM7, HFP, IPB, LDO, MGO, URICB #### [facility] [address] [place], [place] [id number] [facility] [address] [place] [address] HEPATIC FUNCTION Collected: 04/10/2018 Status: F Source: [facility] 4:07 AM [facility] REPOSITORY TYPE CODE TESTS RESULT OUT OF [...] HFP, IPB, LDO, MGO, URICB #### [facility] [address] [place] [address] [facility] [address] [place] [address] INORGANIC PHOSPHATE Collected: 04/10/2018 Status: F Source: [facility] 4:07 AM [facility] REPOSITORY TYPE CODE TESTS RESULT OUT OF REFERENCE UNITS RANGE LAB IP 2.2-4.6 mg/dL Inorg Phosphate 4.3 Performed By: #### CBCDFC, CA, CHM7, HFP, IPB, LDO, MGO, URICB #### [facility] [address] [place] [phone] [place] [address] [address] [place] [address] LD TOTAL Collected: 04/10/2018 Status: F Source: [facility] 4:07 AM [facility] REPOSITORY TYPE CODE TESTS RESULT OUT OF RANGE REFERENCE UNITS LAB LD 100-190 U/L High LD Total 495 Performed By: #### CBCDFC, CA, CHM7, HFP, IPB, LDO, MGO, URICB #### [facility] [address] [place] [phone] [place] [address] [address] [place] [address] MAGNESIUM Collected: 04/10/2018 Status: F Source: [facility] 4:07 AM [facility] REPOSITORY TYPE CODE TESTS RESULT OUT OF REFERENCE UNITS RANGE LAB MG 1.6-2.6 mg/dL Magnesium 1.7 Performed By: #### CBCDFC, CA, CHM7, HFP, IPB, LDO, MGO, URICB #### [facility] [address] [place] [address] [place] [address] URIC ACID Collected: 04/10/2018 Status: F Source: [facility] 4:07 AM [facility] REPOSITORY TYPE CODE TESTS RESULT OUT OF RANGE REFERENCE UNITS LAB URIC 3.5-7.0 mg/dL Uric Acid 4.6 Performed By: #### CBCDFC, CA, CHM7, HFP, IPB, LDO, MGO, URICB #### [facility] [address] [place] [address] *POC GLUCOSE BATTERY Collected: 04/09/2018 Status: F Source: [facility] 9:07 PM [facility] REPOSITORY TYPE CODE TESTS RESULT OUT OF REFERENCE UNITS RANGE LAB GLUP 70-99 mg/dL High Glucose (poc 158 device) Result Comment: Notified RNread back No BRAVE per RN: PATIENT TYPE LAB PCSTYP *POC Capillary SAMPLE TYPE Blood *POC GLUCOSE BATTERY Collected: 04/09/2018 Status: F Source: [facility] 4:59 PM [facility] REPOSITORY TYPE CODE TESTS RESULT OUT OF REFERENCE UNITS RANGE LAB GLUP 70-99 mg/dL Glucose (poc 86 device) Result Comment: Notified RNread back No BRAVE per RN: PATIENT TYPE LAB PCSTYP *POC Capillary SAMPLE TYPE Blood *POC GLUCOSE BATTERY Collected: 04/09/2018 Status: F Source: [facility] 11:23 AM [facility] REPOSITORY TYPE CODE TESTS RESULT OUT OF REFERENCE UNITS RANGE LAB GLUP 70-99 mg/dL High Glucose (poc 226 device) Result Comment: Notified RNread back No BRAVE per RN: PATIENT TYPE LAB PCSTYP *POC Capillary SAMPLE TYPE Blood Observed: 04/09/2018 Status: F Source: [facility] TRANSFUSE PLATELETS 7:47 AM [facility] REPOSITORY CROSSMATCH EXPIRATION: 04/10/2018 UNIT NUMBER: [id number] BLOOD COMPONENT TYPE: Platelet Pheresis,Leukoreduced,[id number] STATUS OF UNIT: Issued, Final TRANSFUSION STATUS: OK TO TRANSFUSE Performed By: #### TPLT #### [facility] [address] [place] [address] [place] [address] *POC GLUCOSE BATTERY Collected: 04/09/2018 Status: F Source: [facility] 7:22 AM [facility] REPOSITORY TYPE CODE TESTS RESULT OUT OF REFERENCE UNITS RANGE LAB GLUP 70-99 mg/dL High Glucose (poc 190 device) Result Comment: Notified RNread back No BRAVE per RN: PATIENT TYPE LAB PCSTYP *POC Capillary SAMPLE TYPE Blood CALCIUM Collected: 04/09/2018 Status: F Source: [facility] 4:37 AM [facility] REPOSITORY TYPE CODE TESTS RESULT OUT OF REFERENCE UNITS RANGE LAB CA 8.6-10.5 mg/dL Low Calcium 7.9 Performed By: #### CA, CHM7, HFP, IPB, LDO, MGO, URICB, CBCDFC #### [facility] [address] [place] [phone] [place] [address] [address] [place] [address] CHEM 7 Collected: 04/09/2018 Status: F Source: [facility] 4:37 AM [facility] REPOSITORY TYPE CODE TESTS RESULT OUT OF [...] >60 mL/min/1.73 Low sqM Est GFR,non 57 Nigerian LAB GFRA >60 mL/min/1.73 sqM Est GFR, >60 Performed By: #### CA, CHM7, HFP, IPB, LDO, MGO, URICB, CBCDFC #### [facility] [address] [place] [address] [address] [place] [address] HEPATIC FUNCTION Collected: 04/09/2018 Status: F Source: [facility] 4:37 AM [facility] REPOSITORY TYPE CODE TESTS RESULT OUT OF [...] IPB, LDO, MGO, URICB, CBCDFC #### [facility] [address] [place] [phone] [place] [address] [address] [place] [address] INORGANIC PHOSPHATE Collected: 04/09/2018 Status: F Source: [facility] 4:37 AM [facility] REPOSITORY TYPE CODE TESTS RESULT OUT OF REFERENCE UNITS RANGE LAB IP 2.2-4.6 mg/dL Inorg Phosphate 3.9 Performed By: #### CA, CHM7, HFP, IPB, LDO, MGO, URICB, CBCDFC #### [facility] [address] [place] [address] [address] [place] [address] LD TOTAL Collected: 04/09/2018 Status: F Source: [facility] 4:37 AM [facility] REPOSITORY TYPE CODE TESTS RESULT OUT OF RANGE REFERENCE UNITS LAB LD 100-190 U/L High LD Total 552 Performed By: #### CA, CHM7, HFP, IPB, LDO, MGO, URICB, CBCDFC #### [facility] [address] [place] [phone] [place] [address] [address] [place] [phone] MAGNESIUM Collected: 04/09/2018 Status: F Source: [facility] 4:37 AM [facility] REPOSITORY TYPE CODE TESTS RESULT OUT OF REFERENCE UNITS RANGE LAB MG 1.6-2.6 mg/dL Magnesium 1.7 Performed By: #### CA, CHM7, HFP, IPB, LDO, MGO, URICB, CBCDFC #### [facility] [address] [place] [address] [place] [phone] URIC ACID Collected: 04/09/2018 Status: F Source: [facility] 4:37 AM [facility] REPOSITORY TYPE CODE TESTS RESULT OUT OF RANGE REFERENCE UNITS LAB URIC 3.5-7.0 mg/dL Uric Acid 4.6 Performed By: #### CA, CHM7, HFP, IPB, LDO, MGO, URICB, CBCDFC #### [facility] [address] [place] [address] [facility] [address] [place], [place] [address] CBC,PLATELET,DIFFERENTIAL - CCL Collected: Status: F Source: [facility] 04/09/2018 4:37 AM [facility] REPOSITORY TYPE CODE TESTS RESULT OUT OF [...] 0.04 Low LAB AMONO 0.30-0.82 K/uL Abs [place] 0.00 Low LAB AEOS <0.55 K/uL Abs Eos 0.00 LAB ABASO <0.09 K/uL Abs Baso 0.00 LAB PLTEST PLATELET Automated ESTIMATE platelet count confirmed by manual slide review. LAB RMORPH Red Cell RBC indices Morphology confirmed by manual smear review. Performed By: #### CA, CHM7, HFP, IPB, LDO, MGO, URICB, CBCDFC #### [facility] [address] [place] [address] [address] [place] [address] *POC GLUCOSE BATTERY Collected: 04/08/2018 Status: F Source: [facility] 9:14 PM [facility] REPOSITORY TYPE CODE TESTS RESULT OUT OF REFERENCE UNITS RANGE LAB GLUP 70-99 mg/dL High Glucose (poc 133 device) Result Comment: Notified RNread back No BRAVE per RN: PATIENT TYPE LAB PCSTYP *POC Capillary SAMPLE TYPE Blood CHM7,IP,MG,CA Collected: 04/08/2018 Status: F Source: [facility] 7:06 PM [facility] REPOSITORY TYPE CODE TESTS RESULT OUT OF [...] >60 mL/min/1.73 Low sqM Est GFR,non 57 Nigerian LAB GFRA >60 mL/min/1.73 sqM Est GFR, >60 Performed By: #### C7PMC, LDO, URICB #### [facility] [address] [place] [address] [address] [place] [address] LD TOTAL Collected: 04/08/2018 Status: F Source: [facility] 7:06 PM [facility] REPOSITORY TYPE CODE TESTS RESULT OUT OF RANGE REFERENCE UNITS LAB LD 100-190 U/L High LD Total 643 Performed By: #### C7PMC, LDO, URICB #### [facility] [address] [place] [phone] [place] [address] [address] [place] [phone] URIC ACID Collected: 04/08/2018 Status: F Source: [facility] 7:06 PM [facility] REPOSITORY TYPE CODE TESTS RESULT OUT OF RANGE REFERENCE UNITS LAB URIC 3.5-7.0 mg/dL Uric Acid 4.1 Performed By: #### C7PMC, LDO, URICB #### [facility] [address] [place] [phone] [place] [address] [address] [place] [address] *POC GLUCOSE BATTERY Collected: 04/08/2018 Status: F Source: [facility] 5:23 PM [facility] REPOSITORY TYPE CODE TESTS RESULT OUT OF REFERENCE UNITS RANGE LAB GLUP 70-99 mg/dL High Glucose (poc 111 device) Result Comment: Notified RNread back No BRAVE per RN: PATIENT TYPE LAB PCSTYP *POC SAMPLE TYPE Venous *POC GLUCOSE BATTERY Collected: 04/08/2018 Status: F Source: [facility] 11:28 AM [facility] REPOSITORY TYPE CODE TESTS RESULT OUT OF REFERENCE UNITS RANGE LAB GLUP 70-99 mg/dL High Glucose (poc 315 device) Result Comment: Notified RNread back No BRAVE per RN: PATIENT TYPE LAB PCSTYP *POC Capillary SAMPLE TYPE Blood *POC GLUCOSE BATTERY Collected: 04/08/2018 Status: F Source: [facility] 7:43 AM [facility] REPOSITORY TYPE CODE TESTS RESULT OUT OF REFERENCE UNITS RANGE LAB GLUP 70-99 mg/dL High Glucose (poc 300 device) Result Comment: Notified RNread back No BRAVE per RN: PATIENT TYPE LAB PCSTYP *POC Capillary SAMPLE TYPE Blood HEPATIC FUNCTION Collected: 04/08/2018 Status: F Source: [facility] PANEL 5:16 AM [facility] REPOSITORY TYPE CODE TESTS RESULT OUT OF [...] CA, URICB, IPB, MGO, LDO, CBCDFC #### [facility] [address] [place] [address] [address] CHEM 7 Collected: 04/08/2018 Status: F Source: [facility] 5:16 AM [facility] REPOSITORY TYPE CODE TESTS RESULT OUT OF [...] >60 mL/min/1.73 Low sqM Est GFR,non 56 Nigerian LAB GFRA >60 mL/min/1.73 sqM Est GFR, >60 Performed By: #### HFP, CHM7, CA, URICB, IPB, MGO, LDO, CBCDFC #### [facility] [address] [place] [address] [address] CALCIUM Collected: 04/08/2018 Status: F Source: [facility] 5:16 AM [facility] REPOSITORY TYPE CODE TESTS RESULT OUT OF REFERENCE UNITS RANGE LAB CA 8.6-10.5 mg/dL Low Calcium 7.7 Performed By: #### HFP, CHM7, CA, URICB, IPB, MGO, LDO, CBCDFC #### [facility] [address] [place] [phone] [place] [address] [address] [place] [address] URIC ACID Collected: 04/08/2018 Status: F Source: [facility] 5:16 AM [facility] REPOSITORY TYPE CODE TESTS RESULT OUT OF RANGE REFERENCE UNITS LAB URIC 3.5-7.0 mg/dL Uric Acid 4.2 Performed By: #### HFP, CHM7, CA, URICB, IPB, MGO, LDO, CBCDFC #### [facility] [address] [place] [phone] [place] [address] [address] [place] [address] INORGANIC PHOSPHATE Collected: 04/08/2018 Status: F Source: [facility] 5:16 AM [facility] REPOSITORY TYPE CODE TESTS RESULT OUT OF REFERENCE UNITS RANGE LAB IP 2.2-4.6 mg/dL Inorg Phosphate 4.5 Performed By: #### HFP, CHM7, CA, URICB, IPB, MGO, LDO, CBCDFC #### [facility] [address] [place] [phone] [place] [address] [address] [place] [address] MAGNESIUM Collected: 04/08/2018 Status: F Source: [facility] 5:16 [facility] REPOSITORY TYPE CODE TESTS RESULT OUT OF REFERENCE UNITS RANGE LAB MG 1.6-2.6 mg/dL Magnesium 1.7 Performed By: #### HFP, CHM7, CA, URICB, IPB, MGO, LDO, CBCDFC #### [facility] [address] [place] [address] [facility] [address] [place] [address] LD TOTAL Collected: 04/08/2018 Status: F Source: [facility] 5:16 [facility] REPOSITORY TYPE CODE TESTS RESULT OUT OF RANGE REFERENCE UNITS LAB LD 100-190 U/L High LD Total 686 Performed By: #### HFP, CHM7, CA, URICB, IPB, MGO, LDO, CBCDFC #### [facility] [address] [place] [address] [place] [address] [facility] [address] [place], [place] [address] CBC,PLATELET,DIFFERENTIAL - CCL Collected: Status: F Source: [facility] 04/08/2018 5:16 AM [facility] REPOSITORY TYPE CODE TESTS RESULT OUT OF [...] LAB AMONO 0.30-0.8 K/uL Low 2 Abs [place] 0.00 LAB AEOS <0.55 K/uL Abs Eos 0.00 LAB ABASO <0.09 K/uL Abs Baso 0.00 LAB ALYOMA 0 K/uL Abs 0.02 High Lymphoma LAB OVALO OVALOCYTES Present LAB TARGET TARGET Present CELLS LAB PLTEST PLATELET ESTIMATE Automated platelet count confirmed by manual slide review. Performed By: #### HFP, CHM7, CA, URICB, IPB, MGO, LDO, CBCDFC #### [facility] [address] [place] [address] [facility] [address] [place] [address] *POC GLUCOSE BATTERY Collected: 04/07/2018 Status: F Source: [facility] 9:17 PM [facility] REPOSITORY TYPE CODE TESTS RESULT OUT OF REFERENCE UNITS RANGE LAB GLUP 70-99 mg/dL High Glucose (poc 148 device) Result Comment: No BRAVE per RN: PATIENT TYPE LAB PCSTYP *POC Capillary SAMPLE TYPE Blood *POC GLUCOSE BATTERY Collected: 04/07/2018 Status: F Source: [facility] 4:28 PM [facility] REPOSITORY TYPE CODE TESTS RESULT OUT OF REFERENCE UNITS RANGE LAB GLUP 70-99 mg/dL High Glucose (poc 107 device) Result Comment: No BRAVE per RN: PATIENT TYPE LAB PCSTYP *POC Capillary SAMPLE TYPE Blood CALCIUM Collected: 04/07/2018 Status: F Source: [facility] 4:20 PM [facility] REPOSITORY TYPE CODE TESTS RESULT OUT OF REFERENCE UNITS RANGE LAB CA 8.6-10.5 mg/dL Low Calcium 8.5 Performed By: #### CA, CHM7, IPB, LDO, URICB #### [facility] [address] [place] [id number] [place] [address] [place] [address] CHEM 7 Collected: 04/07/2018 Status: F Source: [facility] 4:20 PM [facility] REPOSITORY TYPE CODE TESTS RESULT OUT OF [...] >60 mL/min/1.73 Low sqM Est GFR,non 55 Nigerian LAB GFRA >60 mL/min/1.73 sqM Est GFR, >60 Performed By: #### CA, CHM7, IPB, LDO, URICB #### [facility] [address] [place] [id number] [place] [address] [place] [address] INORGANIC PHOSPHATE Collected: 04/07/2018 Status: F Source: [facility] 4:20 PM [facility] REPOSITORY TYPE CODE TESTS RESULT OUT OF REFERENCE UNITS RANGE LAB IP 2.2-4.6 mg/dL Inorg Phosphate 4.2 Performed By: #### CA, CHM7, IPB, LDO, URICB #### [facility] [address] [place] [address] [place] [phone] LD TOTAL Collected: 04/07/2018 Status: F Source: [facility] 4:20 PM [facility] REPOSITORY TYPE CODE TESTS RESULT OUT OF RANGE REFERENCE UNITS LAB LD 100-190 U/L High LD Total 880 Performed By: #### CA, CHM7, IPB, LDO, URICB #### [facility] [address] [place] [address] [place] [address] URIC ACID Collected: 04/07/2018 Status: F Source: [facility] 4:20 PM [facility] REPOSITORY TYPE CODE TESTS RESULT OUT OF RANGE REFERENCE UNITS LAB URIC 3.5-7.0 mg/dL Uric Acid 3.9 Performed By: #### CA, CHM7, IPB, LDO, URICB #### [facility] [address] [place] [address] [place] [address] *POC GLUCOSE BATTERY Collected: 04/07/2018 Status: F Source: [facility] 11:26 AM [facility] REPOSITORY TYPE CODE TESTS RESULT OUT OF REFERENCE UNITS RANGE LAB GLUP 70-99 mg/dL High Glucose (poc 154 device) Result Comment: No BRAVE per RN: PATIENT TYPE LAB PCSTYP *POC Capillary SAMPLE TYPE Blood Observed: 04/07/2018 Status: F Source: [facility] TYPE AND CROSS 10:50 AM [facility] REPOSITORY ABO/RH(D): O POSITIVE ANTIBODY SCREEN: NEGATIVE UNIT NUMBER: [id number] BLOOD COMPONENT TYPE: Red Cell,Leukoreduced,[id number] STATUS OF UNIT: Issued, Final TRANSFUSION STATUS: OK TO TRANSFUSE CROSSMATCH RESULT: Electronically Compatible Performed By: #### XM #### [facility] [address] [place] [id number] [place] [address] [place] [address] *POC GLUCOSE BATTERY Collected: 04/07/2018 Status: F Source: [facility] 7:34 AM [facility] REPOSITORY TYPE CODE TESTS RESULT OUT OF REFERENCE UNITS RANGE LAB GLUP 70-99 mg/dL High Glucose (poc 174 device) Result Comment: No BRAVE per RN: PATIENT TYPE LAB PCSTYP *POC Capillary SAMPLE TYPE Blood CALCIUM Collected: 04/07/2018 Status: F Source: [facility] 4:46 AM [facility] REPOSITORY TYPE CODE TESTS RESULT OUT OF REFERENCE UNITS RANGE LAB CA 8.6-10.5 mg/dL Low Calcium 8.1 Performed By: #### CA, CHM7, HFP, IPB, LDO, MGO, URICB, CBCDFC #### [facility] [address] [place] [address] CHEM 7 Collected: 04/07/2018 Status: F Source: [facility] 4:46 AM [facility] REPOSITORY TYPE CODE TESTS RESULT OUT OF [...] GFR >60 mL/min/1.73 sqM Est GFR,non >60 Nigerian LAB GFRA >60 mL/min/1.73 sqM Est GFR, >60 Performed By: #### CA, CHM7, HFP, IPB, LDO, MGO, URICB, CBCDFC #### [facility] [address] [place] [address] [place] [address] HEPATIC FUNCTION Collected: 04/07/2018 Status: F Source: [facility] 4:46 AM [facility] REPOSITORY TYPE CODE TESTS RESULT OUT OF [...] HFP, IPB, LDO, MGO, URICB, CBCDFC #### [facility] [address] [place] [address] [address] [address] INORGANIC PHOSPHATE Collected: 04/07/2018 Status: F Source: [facility] 4:46 AM [facility] REPOSITORY TYPE CODE TESTS RESULT OUT OF REFERENCE UNITS RANGE LAB IP 2.2-4.6 mg/dL Inorg Phosphate 3.8 Performed By: #### CA, CHM7, HFP, IPB, LDO, MGO, URICB, CBCDFC #### [facility] [address] [place] [address] [address] LD TOTAL Collected: 04/07/2018 Status: F Source: [facility] 4:46 AM [facility] REPOSITORY TYPE CODE TESTS RESULT OUT OF RANGE REFERENCE UNITS LAB LD 100-190 U/L High LD Total 876 Performed By: #### CA, CHM7, HFP, IPB, LDO, MGO, URICB, CBCDFC #### [facility] [address] [place] [address] [address] MAGNESIUM Collected: 04/07/2018 Status: F Source: [facility] 4:46 AM [facility] REPOSITORY TYPE CODE TESTS RESULT OUT OF REFERENCE UNITS RANGE LAB MG 1.6-2.6 mg/dL Magnesium 1.9 Performed By: #### CA, CHM7, HFP, IPB, LDO, MGO, URICB, CBCDFC #### [facility] [address] [place], [place] [phone] [place] [address] [place] [address] URIC ACID Collected: 04/07/2018 Status: F Source: [facility] 4:46 AM [facility] REPOSITORY TYPE CODE TESTS RESULT OUT OF RANGE REFERENCE UNITS LAB URIC 3.5-7.0 mg/dL Uric Acid 3.8 Performed By: #### CA, CHM7, HFP, IPB, LDO, MGO, URICB, CBCDFC #### [facility] [address] [place] [address] [place] [address] CBC,PLATELET,DIFFERENTIAL - CCL Collected: Status: F Source: [facility] 04/07/2018 4:46 AM [facility] REPOSITORY TYPE CODE TESTS RESULT OUT OF [...] 0.11 Low LAB AMONO 0.30-0.82 K/uL Abs [place] <0.04 Low LAB AEOS <0.55 K/uL Abs Eos <0.04 LAB ABASO <0.09 K/uL Abs Baso <0.04 Performed By: #### CA, CHM7, HFP, IPB, LDO, MGO, URICB, CBCDFC #### [facility] [address] [place] [address] [address] CALCIUM Collected: 04/06/2018 Status: F Source: [facility] 10:15 PM [facility] REPOSITORY TYPE CODE TESTS RESULT OUT OF REFERENCE UNITS RANGE LAB CA 8.6-10.5 mg/dL Low Calcium 8.1 Performed By: #### CA, CHM7, IPB, LDO, MGO, URICB #### [facility] [address] [place] [phone] [place] [address] [address] CHEM 7 Collected: 04/06/2018 Status: F Source: [facility] 10:15 PM [facility] REPOSITORY TYPE CODE TESTS RESULT OUT OF [...] >60 mL/min/1.73 Low sqM Est GFR,non 58 Nigerian LAB GFRA >60 mL/min/1.73 sqM Est GFR, >60 Performed By: #### CA, CHM7, IPB, LDO, MGO, URICB #### [facility] [address] [place] [phone] [place] [address] [address] [place] [address] INORGANIC PHOSPHATE Collected: 04/06/2018 Status: F Source: [facility] 10:15 PM [facility] REPOSITORY TYPE CODE TESTS RESULT OUT OF REFERENCE UNITS RANGE LAB IP 2.2-4.6 mg/dL Inorg Phosphate 3.7 Performed By: #### CA, CHM7, IPB, LDO, MGO, URICB #### [facility] [address] [place] [address] [place] [address] LD TOTAL Collected: 04/06/2018 Status: F Source: [facility] 10:15 PM [facility] REPOSITORY TYPE CODE TESTS RESULT OUT OF RANGE REFERENCE UNITS LAB LD 100-190 U/L High LD Total 849 Performed By: #### CA, CHM7, IPB, LDO, MGO, URICB #### [facility] [address] [place] [address] [place] [address] MAGNESIUM Collected: 04/06/2018 Status: F Source: [facility] 10:15 PM [facility] REPOSITORY TYPE CODE TESTS RESULT OUT OF REFERENCE UNITS RANGE LAB MG 1.6-2.6 mg/dL Magnesium 1.9 Performed By: #### CA, CHM7, IPB, LDO, MGO, URICB #### [facility] [address] [place] [id number] [place] [address] [address] [place] [address] URIC ACID Collected: 04/06/2018 Status: F Source: [facility] 10:15 PM [facility] REPOSITORY TYPE CODE TESTS RESULT OUT OF RANGE REFERENCE UNITS LAB URIC 3.5-7.0 mg/dL Uric Acid 3.7 Performed By: #### CA, CHM7, IPB, LDO, MGO, URICB #### [facility] [address] [place], [place] [id number] [facility] [address] [place] [address] *POC GLUCOSE BATTERY Collected: 04/06/2018 Status: F Source: [facility] 9:15 PM [facility] REPOSITORY TYPE CODE TESTS RESULT OUT OF REFERENCE UNITS RANGE LAB GLUP 70-99 mg/dL High Glucose (poc 132 device) Result Comment: No BRAVE per RN: PATIENT TYPE LAB PCSTYP *POC Capillary SAMPLE TYPE Blood XR CHEST PORTABLE Observed: 04/06/2018 Status: F Source: [facility] 7:36 PM [facility] REPOSITORY EXAM: XR CHEST PORTABLE, 04/06/2018 18:52 [...] ONIN I Collected: 04/06/2018 Status: F Source: [facility] 6:37 PM [facility] REPOSITORY TYPE CODE TESTS RESULT OUT OF REFERENCE UNITS RANGE LAB TROP <0.11 ng/mL Troponin I <0.01 Performed By: #### TROP #### [facility] [address] [place] [address] [place] [address] *POC GLUCOSE BATTERY Collected: 04/06/2018 Status: F Source: [facility] 5:07 PM [facility] REPOSITORY TYPE CODE TESTS RESULT OUT OF REFERENCE UNITS RANGE LAB GLUP 70-99 mg/dL High Glucose (poc 259 device) Result Comment: No BRAVE per RN: PATIENT TYPE LAB PCSTYP *POC Capillary SAMPLE TYPE Blood CALCIUM Collected: 04/06/2018 Status: F Source: [facility] 1:38 PM [facility] REPOSITORY TYPE CODE TESTS RESULT OUT OF REFERENCE UNITS RANGE LAB CA 8.6-10.5 mg/dL Low Calcium 8.4 Performed By: #### CA, CHM7, IPB, LDO, MGO, URICB #### [facility] [address] [place] [address] [place] [address] CHEM 7 Collected: 04/06/2018 Status: F Source: [facility] 1:38 PM [facility] REPOSITORY TYPE CODE TESTS RESULT OUT OF [...] GFR >60 mL/min/1.73 sqM Est GFR,non >60 Nigerian LAB GFRA >60 mL/min/1.73 sqM Est GFR, >60 Performed By: #### CA, CHM7, IPB, LDO, MGO, URICB #### [facility] [address] [place] [address] [place] [address] INORGANIC PHOSPHATE Collected: 04/06/2018 Status: F Source: [facility] 1:38 PM [facility] REPOSITORY TYPE CODE TESTS RESULT OUT OF REFERENCE UNITS RANGE LAB IP 2.2-4.6 mg/dL Inorg Phosphate 3.3 Performed By: #### CA, CHM7, IPB, LDO, MGO, URICB #### [facility] [address] [place] [address] [place] [address] LD TOTAL Collected: 04/06/2018 Status: F Source: [facility] 1:38 PM [facility] REPOSITORY TYPE CODE TESTS RESULT OUT OF RANGE REFERENCE UNITS LAB LD 100-190 U/L High LD Total 1010 Performed By: #### CA, CHM7, IPB, LDO, MGO, URICB #### [facility] [address] [place] [address] [place] [address] [address] [place] [address] MAGNESIUM Collected: 04/06/2018 Status: F Source: [facility] 1:38 PM [facility] REPOSITORY TYPE CODE TESTS RESULT OUT OF REFERENCE UNITS RANGE LAB MG 1.6-2.6 mg/dL Magnesium 2.1 Performed By: #### CA, CHM7, IPB, LDO, MGO, URICB #### [facility] [address] [place] [address] [place] [address] URIC ACID Collected: 04/06/2018 Status: F Source: [facility] 1:38 PM [facility] REPOSITORY TYPE CODE TESTS RESULT OUT OF RANGE REFERENCE UNITS LAB URIC 3.5-7.0 mg/dL Uric Acid 3.9 Performed By: #### CA, CHM7, IPB, LDO, MGO, URICB #### [facility] [address] [place] [phone] [place] [address] [place] [address] *POC GLUCOSE BATTERY Collected: 04/06/2018 Status: F Source: [facility] 12:00 PM [facility] REPOSITORY TYPE CODE TESTS RESULT OUT OF REFERENCE UNITS RANGE LAB GLUP 70-99 mg/dL High Glucose (poc 214 device) Result Comment: No BRAVE per RN: PATIENT TYPE LAB PCSTYP *POC Capillary SAMPLE TYPE Blood *POC GLUCOSE BATTERY Collected: 04/06/2018 Status: F Source: [facility] 7:42 AM [facility] REPOSITORY TYPE CODE TESTS RESULT OUT OF REFERENCE UNITS RANGE LAB GLUP 70-99 mg/dL High Glucose (poc 272 device) Result Comment: No BRAVE per RN: PATIENT TYPE LAB PCSTYP *POC Capillary SAMPLE TYPE Blood CALCIUM Collected: 04/06/2018 Status: F Source: [facility] 3:27 AM [facility] REPOSITORY TYPE CODE TESTS RESULT OUT OF REFERENCE UNITS RANGE LAB CA 8.6-10.5 mg/dL Low Calcium 8.0 Performed By: #### CA, CHM7, HFP, IPB, LDO, MGO, URICB, CBCDFC #### [facility] [address] [place] [address] [address] CHEM 7 Collected: 04/06/2018 Status: F Source: [facility] 3:27 AM [facility] REPOSITORY TYPE CODE TESTS RESULT OUT OF [...] GFR >60 mL/min/1.73 sqM Est GFR,non >60 Nigerian LAB GFRA >60 mL/min/1.73 sqM Est GFR, >60 Performed By: #### CA, CHM7, HFP, IPB, LDO, MGO, URICB, CBCDFC #### [facility] [address] [address] HEPATIC FUNCTION Collected: 04/06/2018 Status: F Source: [facility] 3:27 AM [facility] REPOSITORY TYPE CODE TESTS RESULT OUT OF [...] HFP, IPB, LDO, MGO, URICB, CBCDFC #### [facility] [address] [place] [phone] [place] [address] [address] [place] [address] INORGANIC PHOSPHATE Collected: 04/06/2018 Status: F Source: [facility] 3:27 AM [facility] REPOSITORY TYPE CODE TESTS RESULT OUT OF REFERENCE UNITS RANGE LAB IP 2.2-4.6 mg/dL Inorg Phosphate 4.1 Performed By: #### CA, CHM7, HFP, IPB, LDO, MGO, URICB, CBCDFC #### [facility] [address] [place] [phone] [place] [address] [address] [place] [address] LD TOTAL Collected: 04/06/2018 Status: F Source: [facility] 3:27 AM [facility] REPOSITORY TYPE CODE TESTS RESULT OUT OF RANGE REFERENCE UNITS LAB LD 100-190 U/L High LD Total 1020 Performed By: #### CA, CHM7, HFP, IPB, LDO, MGO, URICB, CBCDFC #### [facility] [address] [place] [address] [address] [address] MAGNESIUM Collected: 04/06/2018 Status: F Source: [facility] 3:27 AM [facility] REPOSITORY TYPE CODE TESTS RESULT OUT OF REFERENCE UNITS RANGE LAB MG 1.6-2.6 mg/dL Magnesium 2.2 Performed By: #### CA, CHM7, HFP, IPB, LDO, MGO, URICB, CBCDFC #### [facility] [address] [place] [id number] [place] [address] [address] URIC ACID Collected: 04/06/2018 Status: F Source: [facility] 3:27 AM [facility] REPOSITORY TYPE CODE TESTS RESULT OUT OF RANGE REFERENCE UNITS LAB URIC 3.5-7.0 mg/dL Uric Acid 4.4 Performed By: #### CA, CHM7, HFP, IPB, LDO, MGO, URICB, CBCDFC #### [facility] [address] [place] [address] [address] CBC,PLATELET,DIFFERENTIAL - CCL Collected: Status: F Source: [facility] 04/06/2018 3:27 AM [facility] REPOSITORY TYPE CODE TESTS RESULT OUT OF [...] 0.09 Low LAB AMONO 0.30-0.82 K/uL Abs [place] 0.00 Low LAB AEOS <0.55 K/uL Abs Eos 0.01 LAB ABASO <0.09 K/uL Abs Baso 0.00 LAB ALYOMA 0 K/uL Abs 0.19 High Lymphoma LAB TEARDR TEARDROP Present CELLS LAB PLTEST PLATELET Automated ESTIMATE platelet count confirmed by manual slide review. Performed By: #### CA, CHM7, HFP, IPB, LDO, MGO, URICB, CBCDFC #### [facility] [address] [place] [address] [facility] [address] [place] [address] CALCIUM Collected: 04/05/2018 Status: F Source: [facility] 11:09 PM [facility] REPOSITORY TYPE CODE TESTS RESULT OUT OF REFERENCE UNITS RANGE LAB CA 8.6-10.5 mg/dL Low Calcium 8.1 Performed By: #### CA, CHM7, IPB, LDO, MGO, URICB #### [facility] [phone] [place] [address] [address] [address] CHEM 7 Collected: 04/05/2018 Status: F Source: [facility] 11:09 [facility] REPOSITORY TYPE CODE TESTS RESULT OUT OF [...] GFR >60 mL/min/1.73 sqM Est GFR,non >60 Nigerian LAB GFRA >60 mL/min/1.73 sqM Est GFR, >60 Performed By: #### CA, CHM7, IPB, LDO, MGO, URICB #### [facility] [address] [place] [address] INORGANIC PHOSPHATE Collected: 04/05/2018 Status: F Source: [facility] 11:09 [facility] REPOSITORY TYPE CODE TESTS RESULT OUT OF REFERENCE UNITS RANGE LAB IP 2.2-4.6 mg/dL Inorg Phosphate 3.7 Performed By: #### CA, CHM7, IPB, LDO, MGO, URICB #### [facility] [phone] [place] [address] [place] [address] LD TOTAL Collected: 04/05/2018 Status: F Source: [facility] 11:09 PM [facility] REPOSITORY TYPE CODE TESTS RESULT OUT OF RANGE REFERENCE UNITS LAB LD 100-190 U/L High LD Total 1052 Performed By: #### CA, CHM7, IPB, LDO, MGO, URICB #### [facility] [address] [place] [phone] [place] [address] [place] [address] MAGNESIUM Collected: 04/05/2018 Status: F Source: [facility] 11:09 PM [facility] REPOSITORY TYPE CODE TESTS RESULT OUT OF REFERENCE UNITS RANGE LAB MG 1.6-2.6 mg/dL Magnesium 2.2 Performed By: #### CA, CHM7, IPB, LDO, MGO, URICB #### [facility] [address] [place] [address] [place] [address] URIC ACID Collected: 04/05/2018 Status: F Source: [facility] 11:09 PM [facility] REPOSITORY TYPE CODE TESTS RESULT OUT OF RANGE REFERENCE UNITS LAB URIC 3.5-7.0 mg/dL Uric Acid 4.5 Performed By: #### CA, CHM7, IPB, LDO, MGO, URICB #### [facility] [address] [place] [id number] [place] [address] [address] [place] [phone] *POC GLUCOSE BATTERY Collected: 04/05/2018 Status: F Source: [facility] 9:24 PM [facility] REPOSITORY TYPE CODE TESTS RESULT OUT OF REFERENCE UNITS RANGE LAB GLUP 70-99 mg/dL High Glucose (poc 132 device) Result Comment: No BRAVE per RN: PATIENT TYPE LAB PCSTYP *POC Capillary SAMPLE TYPE Blood *POC GLUCOSE BATTERY Collected: 04/05/2018 Status: F Source: [facility] 4:52 PM [facility] REPOSITORY TYPE CODE TESTS RESULT OUT OF REFERENCE UNITS RANGE LAB GLUP 70-99 mg/dL High Glucose (poc 195 device) Result Comment: No BRAVE per RN: PATIENT TYPE LAB PCSTYP *POC Capillary SAMPLE TYPE Blood CALCIUM Collected: 04/05/2018 Status: F Source: [facility] 1:32 PM [facility] REPOSITORY TYPE CODE TESTS RESULT OUT OF REFERENCE UNITS RANGE LAB CA 8.6-10.5 mg/dL Low Calcium 7.7 Performed By: #### CA, CHM7, IPB, LDO, MGO, URICB #### [facility] [address] [place] [phone] [place] [address] [address] [place] [address] CHEM 7 Collected: 04/05/2018 Status: F Source: [facility] 1:32 PM [facility] REPOSITORY TYPE CODE TESTS RESULT OUT OF [...] GFR >60 mL/min/1.73 sqM Est GFR,non >60 Nigerian LAB GFRA >60 mL/min/1.73 sqM Est GFR, >60 Performed By: #### CA, CHM7, IPB, LDO, MGO, URICB #### [facility] [address] [place] [address] INORGANIC PHOSPHATE Collected: 04/05/2018 Status: F Source: [facility] 1:32 PM [facility] REPOSITORY TYPE CODE TESTS RESULT OUT OF REFERENCE UNITS RANGE LAB IP 2.2-4.6 mg/dL Inorg Phosphate 3.0 Performed By: #### CA, CHM7, IPB, LDO, MGO, URICB #### [facility] [address] [place] [phone] [place] [address] [address] [place] [address] LD TOTAL Collected: 04/05/2018 Status: F Source: [facility] 1:32 PM [facility] REPOSITORY TYPE CODE TESTS RESULT OUT OF RANGE REFERENCE UNITS LAB LD 100-190 U/L High LD Total 1183 Performed By: #### CA, CHM7, IPB, LDO, MGO, URICB #### [facility] [address] [place] [id number] [place] [address] [address] [place] [address] MAGNESIUM Collected: 04/05/2018 Status: F Source: [facility] 1:32 PM [facility] REPOSITORY TYPE CODE TESTS RESULT OUT OF REFERENCE UNITS RANGE LAB MG 1.6-2.6 mg/dL Magnesium 2.3 Performed By: #### CA, CHM7, IPB, LDO, MGO, URICB #### [facility] [address] [place] [id number] [place] [address] [address] [place] [address] URIC ACID Collected: 04/05/2018 Status: F Source: [facility] 1:32 PM [facility] REPOSITORY TYPE CODE TESTS RESULT OUT OF RANGE REFERENCE UNITS LAB URIC 3.5-7.0 mg/dL Uric Acid 4.9 Performed By: #### CA, CHM7, IPB, LDO, MGO, URICB #### [facility] [address] [place] [id number] [place] [address] [address] [place] [phone] *POC GLUCOSE BATTERY Collected: 04/05/2018 Status: F Source: [facility] 11:56 AM [facility] REPOSITORY TYPE CODE TESTS RESULT OUT OF REFERENCE UNITS RANGE LAB GLUP 70-99 mg/dL High Glucose (poc 134 device) Result Comment: No BRAVE per RN: PATIENT TYPE LAB PCSTYP *POC Capillary SAMPLE TYPE Blood *POC GLUCOSE BATTERY Collected: 04/05/2018 Status: F Source: [facility] 7:30 AM [facility] REPOSITORY TYPE CODE TESTS RESULT OUT OF REFERENCE UNITS RANGE LAB GLUP 70-99 mg/dL High Glucose (poc 139 device) Result Comment: No BRAVE per RN: PATIENT TYPE LAB PCSTYP *POC Capillary SAMPLE TYPE Blood PT*PTT Collected: 04/05/2018 Status: F Source: [facility] 4:54 AM [facility] REPOSITORY TYPE CODE TESTS RESULT OUT OF RANGE REFERENCE UNITS LAB PT 11.9-14.2 sec High PT 14.6 LAB INR 0.9-1.1 INR 1.1 LAB PTT 24.0-34.3 sec PTT 25.5 Performed By: #### PTPTT, HFP, CHM7, CA, URICB, IPB, MGO, LDO, CBCDFC #### [facility] [address] [place] [id number] [place] [address] [place] [address] HEPATIC FUNCTION Collected: 04/05/2018 Status: F Source: [facility] 4:54 AM [facility] REPOSITORY TYPE CODE TESTS RESULT OUT OF [...] CA, URICB, IPB, MGO, LDO, CBCDFC #### [facility] [address] [place] [id number] [place] [address] [place] [id number] CHEM 7 Collected: 04/05/2018 Status: F Source: [facility] 4:54 [facility] REPOSITORY TYPE CODE TESTS RESULT OUT OF [...] GFR >60 mL/min/1.73 sqM Est GFR,non >60 [facility] GFRA >60 mL/min/1.73 sqM Est GFR, >60 Performed By: #### PTPTT, HFP, CHM7, CA, URICB, IPB, MGO, LDO, CBCDFC #### [facility] [address] [place] [address] [facility] [address] [place] [address]603 CALCIUM Collected: 04/05/2018 Status: F Source: [facility] 4:54 AM [facility] REPOSITORY TYPE CODE TESTS RESULT OUT OF REFERENCE UNITS RANGE LAB CA 8.6-10.5 mg/dL Low Calcium 7.5 Performed By: #### PTPTT, HFP, CHM7, CA, URICB, IPB, MGO, LDO, CBCDFC #### [facility] [address] [place] [id number] [place] [address] [address] [place] [address] 96174 URIC ACID Collected: 04/05/2018 Status: F Source: [facility] 4:54 AM [facility] REPOSITORY TYPE CODE TESTS RESULT OUT OF RANGE REFERENCE UNITS LAB URIC 3.5-7.0 mg/dL Uric Acid 5.6 Performed By: #### PTPTT, HFP, CHM7, CA, URICB, IPB, MGO, LDO, CBCDFC #### [facility] [address] [place] [id number] [place] [address] [address] [place] [address] 83031 INORGANIC PHOSPHATE Collected: 04/05/2018 Status: F Source: [facility] 4:54 AM [facility] REPOSITORY TYPE CODE TESTS RESULT OUT OF REFERENCE UNITS RANGE LAB IP 2.2-4.6 mg/dL Inorg Phosphate 2.8 Performed By: #### PTPTT, HFP, CHM7, CA, URICB, IPB, MGO, LDO, CBCDFC #### [facility] [address] [place] [address] [facility] [address] [place] [address] 61717 MAGNESIUM Collected: 04/05/2018 Status: F Source: [facility] 4:54 AM [facility] REPOSITORY TYPE CODE TESTS RESULT OUT OF REFERENCE UNITS RANGE LAB MG 1.6-2.6 mg/dL Magnesium 2.4 Performed By: #### PTPTT, HFP, CHM7, CA, URICB, IPB, MGO, LDO, CBCDFC #### [facility] [address] [place] [address] [facility] [address] [place], [place] [address] LD TOTAL Collected: 04/05/2018 Status: F Source: [facility] 4:54 AM [facility] REPOSITORY TYPE CODE TESTS RESULT OUT OF RANGE REFERENCE UNITS LAB LD 100-190 U/L High LD Total 1374 Performed By: #### PTPTT, HFP, CHM7, CA, URICB, IPB, MGO, LDO, CBCDFC #### [facility] [address] [place] [address] [facility] [address] [place], [place] [address] CBC,PLATELET,DIFFERENTIAL - CCL Collected: Status: F Source: [facility] 04/05/2018 4:54 AM [facility] REPOSITORY TYPE CODE TESTS RESULT OUT OF [...] 0.30 Low LAB AMONO 0.30-0.82 K/uL Abs [place] 0.03 Low LAB AEOS <0.55 K/uL Abs Eos 0.00 LAB ABASO <0.09 K/uL Abs Baso 0.00 LAB AMETA 0.00 K/uL Abs [place] 0.01 High LAB ALYOMA 0 K/uL Abs Lymphoma 0.41 High LAB OVALO OVALOCYTES Present LAB TEARDR TEARDROP CELLS Present LAB PLTEST PLATELET ESTIMATE Automated platelet count confirmed by manual slide review. Performed By: #### PTPTT, HFP, CHM7, CA, URICB, IPB, MGO, LDO, CBCDFC #### [facility] [address] [place] [address] FERRITIN Collected: 04/05/2018 Status: F Source: [facility] 4:54 AM [facility] REPOSITORY TYPE CODE TESTS RESULT OUT OF RANGE REFERENCE UNITS LAB FERI 22-322 ng/mL High *Ferritin 2230 Performed By: #### FERIB #### [place] [address] CHEM 7 Collected: 04/04/2018 Status: F Source: [facility] 11:48 PM [facility] REPOSITORY TYPE CODE TESTS RESULT OUT OF [...] GFR >60 mL/min/1.73 sqM Est GFR,non >60 [facility] GFRA >60 mL/min/1.73 sqM Est GFR, >60 Performed By: #### CHM7, CA, URICB, IPB, MGO, LDO #### [facility] [address] [place] [id number] [place] [address] [address] [place] [address] 8[address]08 CALCIUM Collected: 04/04/2018 Status: F Source: [facility] 11:48 PM [facility] REPOSITORY TYPE CODE TESTS RESULT OUT OF REFERENCE UNITS RANGE LAB CA 8.6-10.5 mg/dL Low Calcium 7.5 Performed By: #### CHM7, CA, URICB, IPB, MGO, LDO #### [facility] [address] [place] [address] [place] [address] URIC ACID Collected: 04/04/2018 Status: F Source: [facility] 11:48 PM [facility] REPOSITORY TYPE CODE TESTS RESULT OUT OF RANGE REFERENCE UNITS LAB URIC 3.5-7.0 mg/dL Uric Acid 5.8 Performed By: #### CHM7, CA, URICB, IPB, MGO, LDO #### [facility] [address] [place] [address] [place] [address]71 INORGANIC PHOSPHATE Collected: 04/04/2018 Status: F Source: [facility] 11:48 PM [facility] REPOSITORY TYPE CODE TESTS RESULT OUT OF REFERENCE UNITS RANGE LAB IP 2.2-4.6 mg/dL Inorg Phosphate 2.9 Performed By: #### CHM7, CA, URICB, IPB, MGO, LDO #### [facility] [address] [place] [phone] [place] [address] [address] [place] [id number] MAGNESIUM Collected: 04/04/2018 Status: F Source: [facility] 11:48 PM [facility] REPOSITORY TYPE CODE TESTS RESULT OUT OF REFERENCE UNITS RANGE LAB MG 1.6-2.6 mg/dL Magnesium 2.6 Performed By: #### CHM7, CA, URICB, IPB, MGO, LDO #### [facility] [address] [place] [address] [facility] [address] [place], [place] [address] LD TOTAL Collected: 04/04/2018 Status: F Source: [facility] 11:48 PM [facility] REPOSITORY TYPE CODE TESTS RESULT OUT OF RANGE REFERENCE UNITS LAB LD 100-190 U/L High LD Total 1485 Performed By: #### CHM7, CA, URICB, IPB, MGO, LDO #### [facility] [address] [place] [address] [facility] [address] [place], [place] [address] *POC GLUCOSE BATTERY Collected: 04/04/2018 Status: F Source: [facility] 9:26 PM [facility] REPOSITORY TYPE CODE TESTS RESULT OUT OF REFERENCE UNITS RANGE LAB GLUP 70-99 mg/dL High Glucose (poc 216 device) Result Comment: No BRAVE per RN: PATIENT TYPE LAB PCSTYP *POC Capillary SAMPLE TYPE Blood XR FLUORO LUMBAR Observed: 04/04/2018 Status: F Source: [facility] PUNCTURE 5:44 PM [facility] REPOSITORY EXAM: XR FLUORO LUMBAR PUNCTURE, 04/04/2018 [...] GLUCOSE BATTERY Collected: 04/04/2018 Status: F Source: [facility] 5:02 PM [facility] REPOSITORY TYPE CODE TESTS RESULT OUT OF REFERENCE UNITS RANGE LAB GLUP 70-99 mg/dL High Glucose (poc 226 device) Result Comment: No BRAVE per RN: PATIENT TYPE LAB PCSTYP *POC Capillary SAMPLE TYPE Blood CHEM 7 Collected: 04/04/2018 Status: F Source: [facility] 1:03 PM [facility] REPOSITORY TYPE CODE TESTS RESULT OUT OF [...] GFR >60 mL/min/1.73 sqM Est GFR,non >60 [facility] GFRA >60 mL/min/1.73 sqM Est GFR, >60 Performed By: #### CHM7, CA, URICB, IPB, MGO, LDO #### [facility] [place] [address] CALCIUM Collected: 04/04/2018 Status: F Source: [facility] 1:03 PM [facility] REPOSITORY TYPE CODE TESTS RESULT OUT OF REFERENCE UNITS RANGE LAB CA 8.6-10.5 mg/dL Low Calcium 7.5 Performed By: #### CHM7, CA, URICB, IPB, MGO, LDO #### [facility] [address] [place] [phone] [place] [address] [address] [place] [address] 88085 URIC ACID Collected: 04/04/2018 Status: F Source: [facility] 1:03 PM [facility] REPOSITORY TYPE CODE TESTS RESULT OUT OF RANGE REFERENCE UNITS LAB URIC 3.5-7.0 mg/dL Uric Acid 6.4 Performed By: #### CHM7, CA, URICB, IPB, MGO, LDO #### [facility] [address] [place] [address] [place] [address] INORGANIC PHOSPHATE Collected: 04/04/2018 Status: F Source: [facility] 1:03 [facility] REPOSITORY TYPE CODE TESTS RESULT OUT OF REFERENCE UNITS RANGE LAB IP 2.2-4.6 mg/dL Inorg Phosphate 3.5 Performed By: #### CHM7, CA, URICB, IPB, MGO, LDO #### [facility] [address] [place] [address] [place] [address] MAGNESIUM Collected: 04/04/2018 Status: F Source: [facility] 1:03 [facility] REPOSITORY TYPE CODE TESTS RESULT OUT OF REFERENCE UNITS RANGE LAB MG 1.6-2.6 mg/dL High Magnesium 2.8 Performed By: #### CHM7, CA, URICB, IPB, MGO, LDO #### [facility] [address] [place] [phone] [place] [address] [address] [place] [address] 81831 LD TOTAL Collected: 04/04/2018 Status: F Source: [facility] 1:03 PM [facility] REPOSITORY TYPE CODE TESTS RESULT OUT OF RANGE REFERENCE UNITS LAB LD 100-190 U/L High LD Total 1976 Performed By: #### CHM7, CA, URICB, IPB, MGO, LDO #### [facility] [address] [place] [address] [facility] [address] [place], [place] [address] Observed: 04/04/2018 Status: F Source: [facility] FUNGUS CULTURE -UHE 1:03 PM [facility] REPOSITORY SOURCE: CEREBRAL SPINAL FLUID: COMMENT: Clear 2 MLS T3 RESULT: NO GROWTH TO DATE REPORT STATUS: 05/02/2018 FINAL Performed By: #### FUN #### [facility] [address] [place] [address] Blood Cultures processed at: [facility] *POC GLUCOSE BATTERY Collected: 04/04/2018 Status: F Source: [facility] 11:36 AM [facility] REPOSITORY TYPE CODE TESTS RESULT OUT OF REFERENCE UNITS RANGE LAB GLUP 70-99 mg/dL High Glucose (poc 299 device) Result Comment: No BRAVE per RN: PATIENT TYPE LAB PCSTYP *POC Capillary SAMPLE TYPE Blood CSF PROT & GLUC Collected: 04/04/2018 Status: F Source: [facility] 8:43 AM [facility] REPOSITORY TYPE CODE TESTS RESULT OUT OF REFERENCE UNITS RANGE LAB CFG 40-70 mg/dL High CSF Glucose 125 LAB CFP 15-45 mg/dL High CSF Protein 46 Performed By: #### CFPG, CSFLDB #### [facility] [address] [place] [address] [facility] [address] [place] [address] #### GIPP #### [facility] (DEFAULT) [address] [place] [address]272 IMMUNOPHENOTYPING, Collected: Status: X Source: [facility] FLUID/TISSUE 04/04/2018 8:43 AM [facility] REPOSITORY TYPE CODE TESTS RESULT OUT OF RANGE REFERENCE UNITS LAB GIPP This result Immunophenot has been yping, cancelled. fluid/tissue Performed By: #### CFPG, CSFLDB #### [facility] [address] [place] [address] [facility] [address] [place] [address] #### GIPP #### [facility] (DEFAULT) [address] [place] [address] 86357 CSF FLUID BATTERY Collected: 04/04/2018 Status: F Source: [facility] 8:43 [facility] REPOSITORY TYPE CODE TESTS RESULT OUT OF [...] Performed By: #### CFPG, CSFLDB #### [facility] [address] [place] [address] [facility] [address] [place], [place] [address] #### GIPP #### [facility] (DEFAULT) [address] [place] [address]47 Observed: Status: F Source: [facility] MENINGITIS/ENCEPHALITIS 04/04/2018 8:43 AM [facility] REPOSITORY NOT DETECTED NOT DETECTED NOT DETECTED NOT DETECTED NOT DETECTED NOT DETECTED NOT DETECTED NOT DETECTED NOT DETECTED NOT DETECTED NOT DETECTED NOT DETECTED NOT DETECTED NOT DETECTED A negative result does not exclude the possibility of CURVE CLEANER infection and should not be used as [...] neoformans/jairo. Performed By: #### CSFMEP, EBVFLD #### [place] [address] EBV,PCR,FLUID - UHE Collected: 04/04/2018 Status: F Source: [facility] 8:43 AM [facility] REPOSITORY TYPE CODE TESTS RESULT OUT OF [...] by The [facility]. It has not been cleared or approved by the FDA. The laboratory is regulated under CLIA as qualified to perform high-complexity testing. This test is used for clinical purposes. It should not be regarded as investigational or for research Performed By: #### CSFMEP, EBVFLD #### [place] [address] IMMUNOPHENOTYPING, Collected: Status: F Source: [facility] FLUID/TISSUE 04/04/2018 8:43 AM [facility] REPOSITORY TYPE CODE TESTS RESULT OUT OF REFERENCE UNITS RANGE LAB ICINT3 Immunophenotyping [place] SEE NOTES Result Comment: (NOTE) IMMUNOPHENOTYPING DIAGNOSIS PATIENT NAME: LEXI DICKINSON : 1945 ACCN#: [id number] SAMPLE TYPE: Cerebral Spinal Fluid PHENOTYPIC DESCRIPTION: LABORATORY INTERPRETATION: Cannot evaluate due to insufficient number of cells. MARKERS TESTED: 7AAD, CD2 MARKERS BILLED: :0 This test was developed and its performance characteristics determined [facility]. It has not been cleared or approved by the FDA. This laboratory is certified under the Clinical Laboratory Improvement Amendments (CLIA) as qualified to perform high complexity clinical laboratory testing. This test is used for clinical purposes. It should not be regarded as investigational or for research. The [facility] Flow Cytometry Laboratory lower limit of CLL MRD detection is 0.1% of the gated lymphocytes. Performed By: #### GIPP #### [facility] [place] [address] [place] [place] [address] CYTOLOGY- NON-YACHT BUILDER Observed: 04/04/2018 Status: F Source: [facility] 8:43 AM [facility] REPOSITORY Cytology Report Patient Name: LEXI DICKINSON Med. Rec. #: [id number] Submitting Physician: JESSE FOFANA ---Clinical History:--- - 72 year old with Mantle cell lymphoma - CURVE CLEANER changes - MRI with nonspecific findings - Concern for CURVE CLEANER lymphoma, HLH or infection ---Source of Specimen(s):--- A: Cerebrospinal Fluid Cytologic Diagnosis CEREBROSPINAL FLUID (CYTOLOGY): - No Malignant Cells Are Identified. pexw/PEXW:04/05/2018 ---Electronically Signed Out By Manjinder Bryant Jr, MD--- Lay Out And Detail Drafter: MONA Vega (ASCP) ---Procedures/Addenda--- Performed By: #### NONGN #### [facility] [address] [place] [address] [facility] [address] [place] [address] CMV BY PCR - FLUID Collected: 04/04/2018 Status: F Source: [facility] 8:43 [facility] REPOSITORY TYPE CODE TESTS RESULT OUT OF REFERENCE UNITS RANGE LAB SOUR7 Specimen URINE Source LAB RES7 Negative Result Negative Result Comment: (NOTE) ADDITIONAL INFORMATION This test was developed and its performance characteristics determined by [facility] in a manner consistent with CLIA requirements. This test has not been cleared or approved by the U.S. Food and Drug Administration. Test performed by [facility] Dpt of Lab Med & Pathology Street Performed By: #### YCMV #### Reference lab information reported with result HISTOPLASMA AG, CSF Collected: 04/04/2018 Status: F Source: [facility] 8:43 [facility] REPOSITORY TYPE CODE TESTS RESULT OUT OF [...] developed and its performance characteristics determined by [facility]. It has not been cleared or approved by the FDA; however, FDA clearance or approval is not currently required for clinical use. The results are not intended to be used as the sole means for clinical diagnosis or patient management decisions. Test Performed by: [facility] [id number] [facility] [place] [address] Performed By: #### YHISSP #### Reference lab information reported with result *POC GLUCOSE BATTERY Collected: 04/04/2018 Status: F Source: [facility] 7:47 AM [facility] REPOSITORY TYPE CODE TESTS RESULT OUT OF REFERENCE UNITS RANGE LAB GLUP 70-99 mg/dL High Glucose (poc 220 device) Result Comment: No BRAVE per RN: PATIENT TYPE LAB PCSTYP *POC Capillary SAMPLE TYPE Blood PT*PTT Collected: 04/04/2018 Status: F Source: [facility] 4:38 AM [facility] REPOSITORY TYPE CODE TESTS RESULT OUT OF RANGE REFERENCE UNITS LAB PT 11.9-14.2 sec PT 14.1 LAB INR 0.9-1.1 INR 1.1 LAB PTT 24.0-34.3 sec Low PTT 23.0 Result Comment: Specimen integrity checked. Performed By: #### PTPTT, HFP, CHM7, CA, URICB, IPB, MGO, LDO, CBCDFC #### [facility] [place] [address] [place] [address] [place] [address] HEPATIC FUNCTION Collected: 04/04/2018 Status: F Source: [facility] 4:38 [facility] REPOSITORY TYPE CODE TESTS RESULT OUT OF [...] CBCDFC #### [facility] [address] [place] [address] [facility] [address] [place] [id number] CHEM 7 Collected: 04/04/2018 Status: F Source: [facility] 4:38 AM [facility] REPOSITORY TYPE CODE TESTS RESULT OUT OF [...] GFR >60 mL/min/1.73 sqM Est GFR,non >60 [facility] GFRA >60 mL/min/1.73 sqM Est GFR, >60 Performed By: #### PTPTT, HFP, CHM7, CA, URICB, IPB, MGO, LDO, CBCDFC #### [facility] [address] [place] [address] [address] CALCIUM Collected: 04/04/2018 Status: F Source: [facility] 4:38 [facility] REPOSITORY TYPE CODE TESTS RESULT OUT OF REFERENCE UNITS RANGE LAB CA 8.6-10.5 mg/dL Low Calcium 7.2 Performed By: #### PTPTT, HFP, CHM7, CA, URICB, IPB, MGO, LDO, CBCDFC #### [facility] [address] [place] [id number] [place] [address] [address] [place] [id number] URIC ACID Collected: 04/04/2018 Status: F Source: [facility] 4:38 [facility] REPOSITORY TYPE CODE TESTS RESULT OUT OF RANGE REFERENCE UNITS LAB URIC 3.5-7.0 mg/dL Uric Acid 6.9 Performed By: #### PTPTT, HFP, CHM7, CA, URICB, IPB, MGO, LDO, CBCDFC #### [facility] [address] [place] [address] [facility] [address] [place] [address] INORGANIC PHOSPHATE Collected: 04/04/2018 Status: F Source: [facility] 4:38 AM [facility] REPOSITORY TYPE CODE TESTS RESULT OUT OF REFERENCE UNITS RANGE LAB IP 2.2-4.6 mg/dL Inorg Phosphate 4.0 Performed By: #### PTPTT, HFP, CHM7, CA, URICB, IPB, MGO, LDO, CBCDFC #### [facility] [address] [place] [address] [place] [address] MAGNESIUM Collected: 04/04/2018 Status: F Source: [facility] 4:38 AM [facility] REPOSITORY TYPE CODE TESTS RESULT OUT OF REFERENCE UNITS RANGE LAB MG 1.6-2.6 mg/dL High Magnesium 2.8 Performed By: #### PTPTT, HFP, CHM7, CA, URICB, IPB, MGO, LDO, CBCDFC #### [facility] [address] [place] [phone] [place] [address] [address] [place] [address] LD TOTAL Collected: 04/04/2018 Status: F Source: [facility] 4:38 AM [facility] REPOSITORY TYPE CODE TESTS RESULT OUT OF RANGE REFERENCE UNITS LAB LD 100-190 U/L High LD Total 2005 Performed By: #### PTPTT, HFP, CHM7, CA, URICB, IPB, MGO, LDO, CBCDFC #### [facility] [address] [place] [phone] [place] [address] [address] [place] [address] CBC,PLATELET,DIFFERENTIAL - CCL Collected: Status: F Source: [facility] 04/04/2018 4:38 AM [facility] REPOSITORY TYPE CODE TESTS RESULT OUT OF [...] 0.38 Low LAB AMONO 0.30-0.82 K/uL Abs [place] 0.03 Low LAB AEOS <0.55 K/uL Abs [...] URICB, IPB, MGO, LDO, CBCDFC #### [facility] [address] [place] [address] [address] [place] [address] FERRITIN Collected: 04/04/2018 Status: F Source: [facility] 4:38 AM [facility] REPOSITORY TYPE CODE TESTS RESULT OUT OF RANGE REFERENCE UNITS LAB FERI 22-322 ng/mL High *Ferritin 2793 Performed By: #### FERIB #### [facility] [address] [place] [address] [facility] [address] [place] [address] *POC GLUCOSE BATTERY Collected: 04/03/2018 Status: F Source: [facility] 9:16 PM [facility] REPOSITORY TYPE CODE TESTS RESULT OUT OF REFERENCE UNITS RANGE LAB GLUP 70-99 mg/dL High Glucose (poc 256 device) Result Comment: No BRAVE per RN: PATIENT TYPE LAB PCSTYP *POC SAMPLE TYPE Venous CHEM 7 Collected: 04/03/2018 Status: F Source: [facility] 8:59 PM [facility] REPOSITORY TYPE CODE TESTS RESULT OUT OF [...] GFR >60 mL/min/1.73 sqM Est GFR,non >60 [facility] GFRA >60 mL/min/1.73 sqM Est GFR, >60 Performed By: #### CHM7, CA, URICB, IPB, MGO, LDO #### [facility] [address] [place] [address] [place] [address] CALCIUM Collected: 04/03/2018 Status: F Source: [facility] 8:59 PM [facility] REPOSITORY TYPE CODE TESTS RESULT OUT OF REFERENCE UNITS RANGE LAB CA 8.6-10.5 mg/dL Low Calcium 7.4 Performed By: #### CHM7, CA, URICB, IPB, MGO, LDO #### [facility] [address] [place] [address] [facility] [address] [place] [address]361 URIC ACID Collected: 04/03/2018 Status: F Source: [facility] 8:59 PM [facility] REPOSITORY TYPE CODE TESTS RESULT OUT OF RANGE REFERENCE UNITS LAB URIC 3.5-7.0 mg/dL High Uric Acid 7.4 Performed By: #### CHM7, CA, URICB, IPB, MGO, LDO #### [facility] [address] [place] [address] [place] [address] INORGANIC PHOSPHATE Collected: 04/03/2018 Status: F Source: [facility] 8:59 PM [facility] REPOSITORY TYPE CODE TESTS RESULT OUT OF REFERENCE UNITS RANGE LAB IP 2.2-4.6 mg/dL Inorg Phosphate 3.9 Performed By: #### CHM7, CA, URICB, IPB, MGO, LDO #### [facility] [address] [place] [address] [place] [address] MAGNESIUM Collected: 04/03/2018 Status: F Source: [facility] 8:59 PM [facility] REPOSITORY TYPE CODE TESTS RESULT OUT OF REFERENCE UNITS RANGE LAB MG 1.6-2.6 mg/dL High Magnesium 2.8 Performed By: #### CHM7, CA, URICB, IPB, MGO, LDO #### [facility] [address] [place] [address] [place] [address] 8[address]54 LD TOTAL Collected: 04/03/2018 Status: F Source: [facility] 8:59 PM [facility] REPOSITORY TYPE CODE TESTS RESULT OUT OF RANGE REFERENCE UNITS LAB LD 100-190 U/L High LD Total 2139 Performed By: #### CHM7, CA, URICB, IPB, MGO, LDO #### [facility] [address] [place] [address] [place] [address] *POC GLUCOSE BATTERY Collected: 04/03/2018 Status: F Source: [facility] 5:04 PM [facility] REPOSITORY TYPE CODE TESTS RESULT OUT OF REFERENCE UNITS RANGE LAB GLUP 70-99 mg/dL High Glucose (poc 304 device) Result Comment: Notified RNread back No BRAVE per RN: PATIENT TYPE LAB PCSTYP *POC Capillary SAMPLE TYPE Blood *POC GLUCOSE BATTERY Collected: 04/03/2018 Status: F Source: [facility] 3:28 PM [facility] REPOSITORY TYPE CODE TESTS RESULT OUT OF REFERENCE UNITS RANGE LAB GLUP 70-99 mg/dL High Glucose (poc 332 device) Result Comment: Notified RNread back No BRAVE per RN: PATIENT TYPE LAB PCSTYP *POC Capillary SAMPLE TYPE Blood PLATELET COUNT Collected: 04/03/2018 Status: F Source: [facility] 2:55 PM [facility] REPOSITORY TYPE CODE TESTS RESULT OUT OF REFERENCE UNITS RANGE LAB PLT 163-337 K/uL Low Platelet Count 111 LAB MPV 9.4-12.4 fL Mean Platelet 9.7 Volume Performed By: #### PLAT #### [facility] [address] [place] [address] CHEM 7 Collected: 04/03/2018 Status: F Source: [facility] 2:11 PM [facility] REPOSITORY TYPE CODE TESTS RESULT OUT OF [...] CA, URICB, IPB, MGO, LDO #### U [facility] [address] [place] [address] [place] [address] CALCIUM Collected: 04/03/2018 Status: F Source: [facility] 2:11 PM [facility] REPOSITORY TYPE CODE TESTS RESULT OUT OF REFERENCE UNITS RANGE LAB CA 8.6-10.5 mg/dL Low Calcium 7.1 Performed By: #### CHM7, CA, URICB, IPB, MGO, LDO #### [facility] [address] [place] [address] [facility] [address] [place] [address] URIC ACID Collected: 04/03/2018 Status: F Source: [facility] 2:11 PM [facility] REPOSITORY TYPE CODE TESTS RESULT OUT OF RANGE REFERENCE UNITS LAB URIC 3.5-7.0 mg/dL High Uric Acid 7.7 Result Comment: SLIGHTLY HEMOLYZED Performed By: #### CHM7, CA, URICB, IPB, MGO, LDO #### [facility] [address] [place] [address] [place] [address] INORGANIC PHOSPHATE Collected: 04/03/2018 Status: F Source: [facility] 2:11 [facility] REPOSITORY TYPE CODE TESTS RESULT OUT OF REFERENCE UNITS RANGE LAB IP 2.2-4.6 mg/dL In[place] High Phosphate 5.1 Result Comment: SLIGHTLY HEMOLYZED Performed By: #### CHM7, CA, URICB, IPB, MGO, LDO #### [facility] [address] [place] [id number] [place] [address] [address] [place] [address] MAGNESIUM Collected: 04/03/2018 Status: F Source: [facility] 2:11 [facility] REPOSITORY TYPE CODE TESTS RESULT OUT OF REFERENCE UNITS RANGE LAB MG 1.6-2.6 mg/dL High Magnesium 2.8 Result Comment: SLIGHTLY HEMOLYZED Performed By: #### CHM7, CA, URICB, IPB, MGO, LDO #### [facility] [address] [place] [address] [facility] [address] [place] [address] LD TOTAL Collected: 04/03/2018 Status: F Source: [facility] 2:11 [facility] REPOSITORY TYPE CODE TESTS RESULT OUT OF RANGE REFERENCE UNITS LAB LD 100-190 U/L High LD Total 2956 Result Comment: SLIGHTLY HEMOLYZED Performed By: #### CHM7, CA, URICB, IPB, MGO, LDO #### [facility] [address] [place] [id number] [place] [address] [place] [address] *POC GLUCOSE BATTERY Collected: 04/03/2018 Status: F Source: [facility] 11:11 AM [facility] REPOSITORY TYPE CODE TESTS RESULT OUT OF REFERENCE UNITS RANGE LAB GLUP 70-99 mg/dL High Glucose (poc 367 device) Result Comment: Notified RNread back No BRAVE per RN: PATIENT TYPE LAB PCSTYP *POC Capillary SAMPLE TYPE Blood PLATELET COUNT Collected: 04/03/2018 Status: F Source: [facility] [facility] 10:39 AM [facility] REPOSITORY TYPE CODE TESTS RESULT OUT OF REFERENCE UNITS RANGE LAB PLT 163-337 K/uL Low Platelet Count 44 LAB MPV 9.4-12.4 fL Mean Platelet 10.1 Volume Performed By: #### PLAT #### [facility] [address] [place] [address] [place] [address] *POC GLUCOSE BATTERY Collected: 04/03/2018 Status: F Source: [facility] 7:50 AM [facility] REPOSITORY TYPE CODE TESTS RESULT OUT OF REFERENCE UNITS RANGE LAB GLUP 70-99 mg/dL High Glucose (poc 238 device) Result Comment: No BRAVE per RN: PATIENT TYPE LAB PCSTYP *POC Capillary SAMPLE TYPE Blood PT*PTT Collected: 04/03/2018 Status: F Source: [facility] 4:59 AM [facility] REPOSITORY TYPE CODE TESTS RESULT OUT OF RANGE REFERENCE UNITS LAB PT 11.9-14.2 sec High PT 14.3 LAB INR 0.9-1.1 INR 1.1 LAB PTT 24.0-34.3 sec Low PTT 22.6 Result Comment: Specimen integrity checked. Performed By: #### PTPTT, HFP, CHM7, CA, URICB, IPB, MGO, LDO, CBCDFC #### [facility] [address] [place] [address] [place] [address] HEPATIC FUNCTION Collected: 04/03/2018 Status: F Source: [facility] 4:59 AM [facility] REPOSITORY TYPE CODE TESTS RESULT OUT OF [...] URICB, IPB, MGO, LDO, CBCDFC #### [facility] [address] [place] [address] [address] [place] [address] CHEM 7 Collected: 04/03/2018 Status: F Source: [facility] 4:59 AM [facility] REPOSITORY TYPE CODE TESTS RESULT OUT OF [...] >60 mL/min/1.73 Low sqM Est GFR,non 54 Nigerian LAB GFRA >60 mL/min/1.73 sqM Est GFR, >60 Performed By: #### PTPTT, HFP, CHM7, CA, URICB, IPB, MGO, LDO, CBCDFC #### [facility] [address] [place] [address] [place] [address] CALCIUM Collected: 04/03/2018 Status: F Source: [place] [address]:59 AM [facility] REPOSITORY TYPE CODE TESTS RESULT OUT OF REFERENCE UNITS RANGE LAB CA 8.6-10.5 mg/dL Low Calcium 6.9 Performed By: #### PTPTT, HFP, CHM7, CA, URICB, IPB, MGO, LDO, CBCDFC #### [facility] [id number] [place] [address] [address] [address] URIC ACID Collected: 04/03/2018 Status: F Source: [facility] 4:59 AM [facility] REPOSITORY TYPE CODE TESTS RESULT OUT OF RANGE REFERENCE UNITS LAB URIC 3.5-7.0 mg/dL High Uric Acid 8.6 Performed By: #### PTPTT, HFP, CHM7, CA, URICB, IPB, MGO, LDO, CBCDFC #### [facility] [address] [place] [address] [address] INORGANIC PHOSPHATE Collected: 04/03/2018 Status: F Source: [facility] 4:59 AM [facility] REPOSITORY TYPE CODE TESTS RESULT OUT OF REFERENCE UNITS RANGE LAB IP 2.2-4.6 mg/dL [place] High Phosphate 5.5 Performed By: #### PTPTT, HFP, CHM7, CA, URICB, IPB, MGO, LDO, CBCDFC #### [facility] [address] [place] [address] MAGNESIUM Collected: 04/03/2018 Status: F Source: [facility] 4:59 AM [facility] REPOSITORY TYPE CODE TESTS RESULT OUT OF REFERENCE UNITS RANGE LAB MG 1.6-2.6 mg/dL High Magnesium 2.8 Performed By: #### PTPTT, HFP, CHM7, CA, URICB, IPB, MGO, LDO, CBCDFC #### [facility] [id number] [place] [address] [address] LD TOTAL Collected: 04/03/2018 Status: F Source: [facility] 4:59 AM [facility] REPOSITORY TYPE CODE TESTS RESULT OUT OF RANGE REFERENCE UNITS LAB LD 100-190 U/L High LD Total 2825 Performed By: #### PTPTT, HFP, CHM7, CA, URICB, IPB, MGO, LDO, CBCDFC #### [facility] [address] [place] [address] [facility] [address] [place], [place] [address] CBC,PLATELET,DIFFERENTIAL - CCL Collected: Status: F Source: [facility] 04/03/2018 4:59 AM [facility] REPOSITORY TYPE CODE TESTS RESULT OUT OF [...] 0.37 Low LAB AMONO 0.30-0.82 K/uL Abs [place] 0.00 Low LAB AEOS <0.55 K/uL Abs Eos 0.00 LAB ABASO <0.09 K/uL Abs Baso 0.00 LAB ALYOMA 0 K/uL Abs Lymphoma 2.03 High LAB OVALO OVALOCYTES Present LAB POLYCH POLYCHROMASIA 1+ LAB TARGET TARGET CELLS Present LAB PLTEST PLATELET Automated ESTIMATE platelet count confirmed by manual slide review. Performed By: #### PTPTT, HFP, CHM7, CA, URICB, IPB, MGO, LDO, CBCDFC #### [facility] [address] [place] [address] [place] [address] FERRITIN Collected: 04/03/2018 Status: F Source: [facility] 4:59 AM [facility] REPOSITORY TYPE CODE TESTS RESULT OUT OF RANGE REFERENCE UNITS LAB FERI 22-322 ng/mL High *Ferritin 4430 Performed By: #### FERIB #### [facility] [address] [place] [address] [place] [address] *POC GLUCOSE BATTERY Collected: 04/03/2018 Status: F Source: [facility] 3:21 AM [facility] REPOSITORY TYPE CODE TESTS RESULT OUT OF REFERENCE UNITS RANGE LAB GLUP 70-99 mg/dL High Glucose (poc 322 device) Result Comment: No BRAVE per RN: PATIENT TYPE LAB PCSTYP *POC Capillary SAMPLE TYPE Blood *POC GLUCOSE BATTERY Collected: 04/03/2018 Status: F Source: [facility] 12:16 AM [facility] REPOSITORY TYPE CODE TESTS RESULT OUT OF REFERENCE UNITS RANGE LAB GLUP 70-99 mg/dL High Glucose (poc 357 device) Result Comment: No BRAVE per RN: PATIENT TYPE LAB PCSTYP *POC Capillary SAMPLE TYPE Blood Observed: 04/03/2018 Status: F Source: [facility] TRANSFUSE PLATELETS 12:00 AM [facility] REPOSITORY CROSSMATCH EXPIRATION: 04/04/2018 UNIT NUMBER: [id number] BLOOD COMPONENT TYPE: Platelet Pheresis,Leukoreduced,[id number] STATUS OF UNIT: Issued, Final TRANSFUSION STATUS: OK TO TRANSFUSE UNIT NUMBER: [id number] BLOOD COMPONENT TYPE: Platelet Pheresis,Leukoreduced,[id number] STATUS OF UNIT: Issued, Final TRANSFUSION STATUS: OK TO TRANSFUSE UNIT NUMBER: [id number] BLOOD COMPONENT TYPE: Platelet Pheresis,Leukoreduced,[id number] STATUS OF UNIT: Issued, Final TRANSFUSION STATUS: OK TO TRANSFUSE Performed By: #### TPLT #### [facility] [address] [place] [id number] [place] [address] [address] [place] [address] *POC GLUCOSE BATTERY Collected: 04/02/2018 Status: F Source: [facility] 10:09 PM [facility] REPOSITORY TYPE CODE TESTS RESULT OUT OF REFERENCE UNITS RANGE LAB GLUP 70-99 mg/dL High alert Glucose (poc 410 device) Result Comment: Notified RNread back No BRAVE per RN: PATIENT TYPE LAB PCSTYP *POC SAMPLE TYPE Venous CHEM 7 Collected: 04/02/2018 Status: F Source: [facility] 9:59 PM [facility] REPOSITORY TYPE CODE TESTS RESULT OUT OF [...] CA, URICB, IPB, MGO, LDO #### [facility] [address] [place] [address] [place] [address] CALCIUM Collected: 04/02/2018 Status: F Source: [facility] 9:59 PM [facility] REPOSITORY TYPE CODE TESTS RESULT OUT OF REFERENCE UNITS RANGE LAB CA 8.6-10.5 mg/dL Low Calcium 6.9 Performed By: #### JETTM7, CA, URICB, IPB, MGO, LDO #### [facility] [address] [place] [id number] [place] [address] [address] [place] [address] URIC ACID Collected: 04/02/2018 Status: F Source: [facility] 9:59 PM [facility] REPOSITORY TYPE CODE TESTS RESULT OUT OF RANGE REFERENCE UNITS LAB URIC 3.5-7.0 mg/dL High Uric Acid 8.4 Performed By: #### JETTM7, CA, URICB, IPB, MGO, LDO #### [facility] [address] [place] [address] [place] [address] INORGANIC PHOSPHATE Collected: 04/02/2018 Status: F Source: [facility] 9:59 PM [facility] REPOSITORY TYPE CODE TESTS RESULT OUT OF REFERENCE UNITS RANGE LAB IP 2.2-4.6 mg/dL [place] High Phosphate 5.2 Performed By: #### CHM7, CA, URICB, IPB, MGO, LDO #### [facility] [address] [place] [address] [place] [address] MAGNESIUM Collected: 04/02/2018 Status: F Source: [facility] 9:59 PM [facility] REPOSITORY TYPE CODE TESTS RESULT OUT OF REFERENCE UNITS RANGE LAB MG 1.6-2.6 mg/dL High Magnesium 2.8 Performed By: #### CHM7, CA, URICB, IPB, MGO, LDO #### [facility] [address] [place] [address] [place] [address] LD TOTAL Collected: 04/02/2018 Status: F Source: [facility] 9:59 PM [facility] REPOSITORY TYPE CODE TESTS RESULT OUT OF RANGE REFERENCE UNITS LAB LD 100-190 U/L High LD Total 3294 Performed By: #### CHM7, CA, URICB, IPB, MGO, LDO #### [facility] [address] [place] [address] [facility] [address] [address] URINALYSIS Collected: 04/02/2018 Status: F Source: [facility] 8:42 PM [facility] REPOSITORY TYPE CODE TESTS RESULT OUT OF RANGE REFERENCE UNITS LAB [place] ATT[employer]ER Clear Appearance Abnormal Urine Cloudy LAB SPGR 1.001-1.035 Specific [place] urine 1.016 LAB UGL Negative mg/dL Glucose [...] Absent Performed By: #### URIN #### U [facility] [address] [address] LYTES (NA,K,CL,CREA),URINE,RANDOM Collected: Status: F Source: [place] 04/02/2018 8:42 PM [facility] REPOSITORY TYPE CODE TESTS RESULT OUT OF REFERENCE UNITS RANGE LAB NAU1 mmol/L URINE SODIUM 75 LAB KU1 mmol/L URINE POTASSIUM 18.4 LAB CLU1 mmol/L URINE CHLORIDE 83 LAB CREU1 mg/dL Creatinine, 24.00 urine mg/dL Performed By: #### ULYCR #### [facility] [address] [address] *POC GLUCOSE BATTERY Collected: 04/02/2018 Status: F Source: [facility] 6:59 PM [facility] REPOSITORY TYPE CODE TESTS RESULT OUT OF REFERENCE UNITS RANGE LAB GLUP 70-99 mg/dL High alert Glucose (poc 448 device) Result Comment: Notified RNread back No BRAVE per RN: PATIENT TYPE LAB PCSTYP *POC Capillary SAMPLE TYPE Blood Observed: 04/02/2018 Status: F Source: [facility] TRANSFUSE PLATELETS 4:58 PM [facility] REPOSITORY CROSSMATCH EXPIRATION: 04/03/2018 UNIT NUMBER: [id number] BLOOD COMPONENT TYPE: Platelet Pheresis,Leukoreduced,[id number] STATUS OF UNIT: REL FROM [facility] TRANSFUSION STATUS: OK TO TRANSFUSE Performed By: #### TPLT #### [facility] [address] [place] [address] [place] [address] LACTATE, BLOOD Collected: 04/02/2018 Status: F Source: [facility] 4:47 PM [facility] REPOSITORY TYPE CODE TESTS RESULT OUT OF RANGE REFERENCE UNITS LAB LACT 0.5-1.6 mmol/L High Lactate, 2.2 Blood Performed By: #### LACT #### [facility] [address] [place] [address] [place] [address] LIPASE Collected: 04/02/2018 Status: F Source: [facility] 4:47 PM [facility] REPOSITORY TYPE CODE TESTS RESULT OUT OF REFERENCE UNITS RANGE LAB LIPA 11-82 U/L Lipase 23 Performed By: #### LIPA, ACETB #### [facility] [address] [place] [address] [place] [address] BETA HYDROXYBUTYRATE Collected: 04/02/2018 Status: F Source: [facility] 4:47 PM [facility] REPOSITORY TYPE CODE TESTS RESULT OUT OF REFERENCE UNITS RANGE LAB BHY 0.02-0.27 mmol/L Beta Hydroxybutyrate 0.19 Performed By: #### LIPA, ACETB #### [facility] [address] [place] [id number] [place] [address] [address] [place] [address] *POC GLUCOSE BATTERY Collected: 04/02/2018 Status: F Source: [facility] 4:34 PM [facility] REPOSITORY TYPE CODE TESTS RESULT OUT OF REFERENCE UNITS RANGE LAB GLUP 70-99 mg/dL High alert Glucose (poc 430 device) Result Comment: Notified RNread back No BRAVE per RN: PATIENT TYPE LAB PCSTYP *POC Capillary SAMPLE TYPE Blood CHEM 7 Collected: 04/02/2018 Status: F Source: [facility] 3:15 PM [facility] REPOSITORY TYPE CODE TESTS RESULT OUT OF [...] CA, URICB, IPB, MGO, LDO #### [facility] [address] [place] [address] [place] [address] CALCIUM Collected: 04/02/2018 Status: F Source: [facility] 3:15 PM [facility] REPOSITORY TYPE CODE TESTS RESULT OUT OF REFERENCE UNITS RANGE LAB CA 8.6-10.5 mg/dL Low Calcium 6.9 Performed By: #### CHM7, CA, URICB, IPB, MGO, LDO #### [facility] [address] [place] [address] URIC ACID Collected: 04/02/2018 Status: F Source: [facility] 3:15 PM [facility] REPOSITORY TYPE CODE TESTS RESULT OUT OF RANGE REFERENCE UNITS LAB URIC 3.5-7.0 mg/dL High Uric Acid 7.8 Performed By: #### CHM7, CA, URICB, IPB, MGO, LDO #### [facility] [address] [place] [id number] [place] [address] [address] [place] [address] INORGANIC PHOSPHATE Collected: 04/02/2018 Status: F Source: [facility] 3:15 PM [facility] REPOSITORY TYPE CODE TESTS RESULT OUT OF REFERENCE UNITS RANGE LAB IP 2.2-4.6 mg/dL [place] High Phosphate 5.2 Performed By: #### CHM7, CA, URICB, IPB, MGO, LDO #### [facility] [address] [place] [address] [place] [address] MAGNESIUM Collected: 04/02/2018 Status: F Source: [facility] 3:15 PM [facility] REPOSITORY TYPE CODE TESTS RESULT OUT OF REFERENCE UNITS RANGE LAB MG 1.6-2.6 mg/dL High Magnesium 2.9 Performed By: #### CHM7, CA, URICB, IPB, MGO, LDO #### [facility] [address] [place] [id number] [place] [address] [address] [place] [address] LD TOTAL Collected: 04/02/2018 Status: F Source: [facility] 3:15 PM [facility] REPOSITORY TYPE CODE TESTS RESULT OUT OF RANGE REFERENCE UNITS LAB LD 100-190 U/L High LD Total 4193 Performed By: #### CHM7, CA, URICB, IPB, MGO, LDO #### [facility] [address] [place] [address] [place] [address] [address] [place] [address] *POC GLUCOSE BATTERY Collected: 04/02/2018 Status: F Source: [facility] 11:56 AM [facility] REPOSITORY TYPE CODE TESTS RESULT OUT OF REFERENCE UNITS RANGE LAB GLUP 70-99 mg/dL High alert Glucose (poc 410 device) Result Comment: Notified RNread back No BRAVE per RN: PATIENT TYPE LAB PCSTYP *POC Capillary SAMPLE TYPE Blood Observed: 04/02/2018 Status: F Source: [place] [facility] 7:54 AM [facility] REPOSITORY ABO/RH(D): O POSITIVE ANTIBODY SCREEN: NEGATIVE UNIT NUMBER: [id number] BLOOD COMPONENT TYPE: Red Cell,Leukoreduced,[id number] STATUS OF UNIT: Issued, Final TRANSFUSION STATUS: OK TO TRANSFUSE CROSSMATCH RESULT: Electronically Compatible UNIT NUMBER: [id number] BLOOD COMPONENT TYPE: Red Cell, Leukoreduced, [id number] STATUS OF UNIT: Issued, Final TRANSFUSION STATUS: OK TO TRANSFUSE CROSSMATCH RESULT: Electronically Compatible UNIT NUMBER: [id number] BLOOD COMPONENT TYPE: Red Cell,Leukoreduced,[id number] STATUS OF UNIT: Issued, Final TRANSFUSION STATUS: OK TO TRANSFUSE CROSSMATCH RESULT: Electronically Compatible Performed By: #### XM #### [facility] [address] [place] [address] [place] [address] HEPATIC FUNCTION Collected: 04/02/2018 Status: F Source: [facility] 5:15 [facility] REPOSITORY TYPE CODE TESTS RESULT OUT OF [...] IPB, MGO, LDO, PTPTT, CBCDFC #### [facility] [address] [place] [address] [address] [address] CHEM 7 Collected: 04/02/2018 Status: F Source: [facility] 5:15 [facility] REPOSITORY TYPE CODE TESTS RESULT OUT OF [...] >60 mL/min/1.73 Low sqM Est GFR,non 54 Nigerian LAB GFRA >60 mL/min/1.73 sqM Est GFR, >60 Performed By: #### HFP, CHM7, CA, URICB, IPB, MGO, LDO, PTPTT, CBCDFC #### [facility] [address] [place] [address] CALCIUM Collected: 04/02/2018 Status: F Source: [facility] 5:15 AM [facility] REPOSITORY TYPE CODE TESTS RESULT OUT OF REFERENCE UNITS RANGE LAB CA 8.6-10.5 mg/dL Low Calcium 6.5 Performed By: #### HFP, CHM7, CA, URICB, IPB, MGO, LDO, PTPTT, CBCDFC #### [facility] [address] [place] [address] URIC ACID Collected: 04/02/2018 Status: F Source: [facility] 5:15 AM [facility] REPOSITORY TYPE CODE TESTS RESULT OUT OF RANGE REFERENCE UNITS LAB URIC 3.5-7.0 mg/dL High Uric Acid 7.5 Performed By: #### HFP, CHM7, CA, URICB, IPB, MGO, LDO, PTPTT, CBCDFC #### [facility] [address] [address] INORGANIC PHOSPHATE Collected: 04/02/2018 Status: F Source: [facility] 5:15 AM [facility] REPOSITORY TYPE CODE TESTS RESULT OUT OF REFERENCE UNITS RANGE LAB IP 2.2-4.6 mg/dL [place] High Phosphate 5.4 Performed By: #### HFP, CHM7, CA, URICB, IPB, MGO, LDO, PTPTT, CBCDFC #### [facility] [id number] [place] [address] [address] [place] [address] MAGNESIUM Collected: 04/02/2018 Status: F Source: [facility] 5:15 AM [facility] REPOSITORY TYPE CODE TESTS RESULT OUT OF REFERENCE UNITS RANGE LAB MG 1.6-2.6 mg/dL High Magnesium 2.8 Performed By: #### HFP, CHM7, CA, URICB, IPB, MGO, LDO, PTPTT, CBCDFC #### [facility] [address] [place] [address] [address] [address] LD TOTAL Collected: 04/02/2018 Status: F Source: [facility] 5:15 AM [facility] REPOSITORY TYPE CODE TESTS RESULT OUT OF RANGE REFERENCE UNITS LAB LD 100-190 U/L High LD Total 4555 Performed By: #### HFP, CHM7, CA, URICB, IPB, MGO, LDO, PTPTT, CBCDFC #### [facility] [address] [place] [address] [address] [address] PT*PTT Collected: 04/02/2018 Status: F Source: [facility] 5:15 AM [facility] REPOSITORY TYPE CODE TESTS RESULT OUT OF RANGE REFERENCE UNITS LAB PT 11.9-14.2 sec High PT 15.9 LAB INR 0.9-1.1 High INR 1.3 LAB PTT 24.0-34.3 sec PTT 25.6 Performed By: #### HFP, CHM7, CA, URICB, IPB, MGO, LDO, PTPTT, CBCDFC #### [facility] [address] [place] [address] CBC,PLATELET,DIFFERENTIAL - CCL Collected: Status: F Source: [facility] 04/02/2018 5:15 AM [facility] REPOSITORY TYPE CODE TESTS RESULT OUT OF [...] Lymph 1.64 LAB AMONO 0.30-0.82 K/uL Abs [place] 0.31 LAB AEOS <0.55 K/uL Abs Eos 0.31 LAB ABASO <0.09 K/uL Abs Baso 0.00 LAB ALYOMA 0 K/uL Abs 4.20 High Lymphoma LAB PLTEST PLATELET Automated ESTIMATE platelet count confirmed by manual slide review. LAB RMORPH Red Cell RBC indices Morphology confirmed by manual smear review. Performed By: #### HFP, CHM7, CA, URICB, IPB, MGO, LDO, PTPTT, CBCDFC #### [facility] [address] [place] [address] [address] [place] [address] FERRITIN Collected: 04/02/2018 Status: F Source: [facility] 5:15 AM [facility] REPOSITORY TYPE CODE TESTS RESULT OUT OF RANGE REFERENCE UNITS LAB FERI 22-322 ng/mL High *Ferritin 5455 Performed By: #### FERIB #### [facility] [address] [place] [address] [facility] [address] [place] [address] POTASSIUM Collected: 04/01/2018 Status: F Source: [facility] 7:33 PM [facility] REPOSITORY TYPE CODE TESTS RESULT OUT OF REFERENCE UNITS RANGE LAB K 3.5-5.0 mmol/L Potassium 4.5 Performed By: #### KKO #### [facility] [address] [place] [address] [place] [address] CHEM 6 Collected: 04/01/2018 Status: F Source: [facility] 3:42 PM [facility] REPOSITORY TYPE CODE TESTS RESULT OUT OF [...] GFR, 53 Performed By: #### [id number] #### [facility] [address] [place] [address] [place] [address] PT*PTT Collected: 04/01/2018 Status: F Source: [facility] 3:08 AM [facility] REPOSITORY TYPE CODE TESTS RESULT OUT OF RANGE REFERENCE UNITS LAB PT 11.9-14.2 sec High PT 15.0 LAB INR 0.9-1.1 High INR 1.2 LAB PTT 24.0-34.3 sec PTT 27.5 Performed By: #### PTPTT, HFP, CHM7, CA, URICB, IPB, MGO, LDO, CBCDFC #### [facility] [address] [place] [address] [place] [address] HEPATIC FUNCTION Collected: 04/01/2018 Status: F Source: [facility] 3:08 AM [facility] REPOSITORY TYPE CODE TESTS RESULT OUT OF [...] URICB, IPB, MGO, LDO, CBCDFC #### [facility] [facility] [address] [place] [address] CHEM 7 Collected: 04/01/2018 Status: F Source: [facility] 3:08 [facility] REPOSITORY TYPE CODE TESTS RESULT OUT OF [...] >60 mL/min/1.73 Low sqM Est GFR,non 47 Nigerian LAB GFRA >60 mL/min/1.73 Low sqM Est GFR, 57 Performed By: #### PTPTT, HFP, CHM7, CA, URICB, IPB, MGO, LDO, CBCDFC #### [facility] [address] [place] [address] [facility] [address] [place] [address] CALCIUM Collected: 04/01/2018 Status: F Source: [facility] 3:08 AM [facility] REPOSITORY TYPE CODE TESTS RESULT OUT OF REFERENCE UNITS RANGE LAB CA 8.6-10.5 mg/dL Low Calcium 7.9 Performed By: #### PTPTT, HFP, CHM7, CA, URICB, IPB, MGO, LDO, CBCDFC #### [facility] [address] [place] [address] [place] [address] URIC ACID Collected: 04/01/2018 Status: F Source: [facility] 3:08 AM [facility] REPOSITORY TYPE CODE TESTS RESULT OUT OF RANGE REFERENCE UNITS LAB URIC 3.5-7.0 mg/dL Uric Acid 5.6 Performed By: #### PTPTT, HFP, CHM7, CA, URICB, IPB, MGO, LDO, CBCDFC #### [facility] [address] [place] [address] [place] [address] INORGANIC PHOSPHATE Collected: 04/01/2018 Status: F Source: [facility] 3:08 AM [facility] REPOSITORY TYPE CODE TESTS RESULT OUT OF REFERENCE UNITS RANGE LAB IP 2.2-4.6 mg/dL Inorg Phosphate 3.5 Performed By: #### PTPTT, HFP, CHM7, CA, URICB, IPB, MGO, LDO, CBCDFC #### [facility] [address] [place] [id number] [place] [address] [address] [place] [address] MAGNESIUM Collected: 04/01/2018 Status: F Source: [facility] 3:08 AM [facility] REPOSITORY TYPE CODE TESTS RESULT OUT OF REFERENCE UNITS RANGE LAB MG 1.6-2.6 mg/dL High Magnesium 2.7 Performed By: #### PTPTT, HFP, CHM7, CA, URICB, IPB, MGO, LDO, CBCDFC #### U [facility] [address] [place] [address] [facility] [address] [place], [place] [address] LD TOTAL Collected: 04/01/2018 Status: F Source: [facility] 3:08 AM [facility] REPOSITORY TYPE CODE TESTS RESULT OUT OF RANGE REFERENCE UNITS LAB LD 100-190 U/L High LD Total 5572 Performed By: #### PTPTT, HFP, CHM7, CA, URICB, IPB, MGO, LDO, CBCDFC #### [facility] [address] [place] [address] [facility] [address] [place], [place] [address] CBC,PLATELET,DIFFERENTIAL - CCL Collected: Status: F Source: [facility] 04/01/2018 3:08 AM [facility] REPOSITORY TYPE CODE TESTS RESULT OUT OF [...] Lymph 2.92 LAB AMONO 0.30-0.82 K/uL Abs [place] 0.85 High LAB AEOS <0.55 K/uL Abs [...] CA, URICB, IPB, MGO, LDO, CBCDFC #### [facility] [address] [place] [address] FERRITIN Collected: 04/01/2018 Status: F Source: [facility] 3:08 AM [facility] REPOSITORY TYPE CODE TESTS RESULT OUT OF RANGE REFERENCE UNITS LAB FERI 22-322 ng/mL High *Ferritin 5726 Performed By: #### FERIB #### [facility] [address] [address] MRI BRAIN WITH AND Observed: 03/31/2018 Status: F Source: [facility] WITHOUT CONTRAST 7:29 PM [facility] REPOSITORY EXAM: MRI BRAIN WITH AND WITHOUT [...] ELET COUNT Collected: 03/31/2018 Status: F Source: [facility] 6:42 PM [facility] REPOSITORY TYPE CODE TESTS RESULT OUT OF REFERENCE UNITS RANGE LAB PLT 163-337 K/uL Low Platelet Count 52 LAB MPV 9.4-12.4 fL Mean Platelet 11.6 Volume Performed By: #### PLAT #### [facility] [address] [place] [address] SURGICAL PATHOLOGY Observed: 03/31/2018 Status: F Source: [facility] 5:02 PM [facility] REPOSITORY Surgical Pathology Report Patient Name: LEXI DICKINSON [facility]. Rec #: [id number] Submitting Physician: JESSE FOFANA --- Clinical History [...] 04/06/2018 11:23:10 Professional Interpretation performed at location: [address] [place] [address] ---MICROSCOPIC:--- BONE MARROW REPORT The following specimens [...] developed by and are performed at the [facility], [address] [place] [address]. All tests reported here, except those addressing [...] Performed and resulted in a separate report ([id number]). The above report complies, in slightly modified form, with the guidelines of the [employer] [place] [employer] for the reporting of cancer specimens. [...] ready after decalcification. Lab Use Only: JobID [id number] Gross description by: Edda Hobson Performed By: #### SURGP #### [facility] [address] [place] [address] [facility] [address] [place] [address] BM IMMUNOPHENOTYPING Collected: Status: X Source: [facility] 03/31/2018 3:46 PM [facility] REPOSITORY TYPE CODE TESTS RESULT OUT OF REFERENCE UNITS RANGE LAB BMIPP BM Immunophenotyping This result has been cancelled. Performed By: #### BMIPP #### [facility] (DEFAULT) [address] [place] [address] #### P3J #### [facility], [facility] [address] [place] [address] PACKAGE 3 Collected: 03/31/2018 Status: F Source: [facility] 3:46 PM [facility] REPOSITORY TYPE CODE TESTS RESULT OUT OF REFERENCE UNITS RANGE LAB BMBXJ BM Biopsy Doctor to - CHRI interpret test LAB BMFEJ BM Iron Doctor to Stain interpret test Performed By: #### BMIPP #### [facility] (DEFAULT) [address] [place] [address] #### P3J #### [facility], [facility] [address] [place] [address] CALCIUM Collected: 03/31/2018 Status: F Source: [facility] 3:46 PM [facility] REPOSITORY TYPE CODE TESTS RESULT OUT OF REFERENCE UNITS RANGE LAB CA 8.6-10.5 mg/dL Low Calcium 8.1 Performed By: #### CA #### [facility] [address] [place], [place] [address] [facility] [address] [place] [address] CYTOGENETICS Observed: 03/31/2018 Status: F Source: [facility] 3:46 PM [facility] REPOSITORY Cytogenetics Report Patient Name: LEXI DICKINSON [facility]. Rec #: [id number] Submitting Physician: JESSE FOFANA Clinical History Mantle [...] edin06/NAH:04/26/2018 Electronically Signed By Nica George, PhD, [facility] [place] 04/26/2018 11:25:15 LABORATORY DATA Band Level: 425 [...] 223 CDKN2A 209 JAX 217 D12Z3 201 [id number] 201 TP53 217 IGH-CCND1 135 IGH-BCL2 262 Probe/Control Range Patient/Interpretation 3q27(BCL6(ba))/0-2.3% 89.7%/POSITIVE FOR REARRANGEMENT 6q21(SEC63);1signal/0-3.0% 0%/negative 8q24(MYC);3signals/0-1.4% 93.7%/POSITIVE FOR 3-5 SIGNALS 9p21(CDKN2A);1signal/0-5.4% 92.8%/POSITIVE 11q22.3(JAX);1signal/0-3.7% 0%/negative 12cen(D12Z3);3signals/0-0.6% 0%/negative 13q14.3(X35N176);1signal/0-6.0% 0.5%/negative 17p13.1(TP53);1signal/0-6.4% 92.2%/POSITIVE 14q32.3-11q13(IGH-CCND1)/0-0.6% 88.9%/POSITIVE 9cen(D9Z4);3signals/0-0.6% 52.6%/POSITIVE FOR 3 SIGNALS 14q32.3-18q21(IGH-BCL2)/0-0.6% 76.3%/fusion negative- POSITIVE FOR 3 IGH SIGNALS Karyotype/Interpretation nuc wing(BCL6x2)(5'BCL6 sep 3'BCL6x1)[200/223],(MYCx3)[7]/(MYCx4)[116/223]/(BCL6x5)[86/223],(CDKN2A x1,D9Z4x3)[110/209]/(CCPU7Tx9,D9Z4x2)[84/209],(ATMx2,TP53x1)[200/217],(SEC6 3,D12Z3,X50L585)x2[200],(IGH,CCND1)x3(IGH con MHWM3w2)[120/235],(IGHx3,BCL2x2)[200/262] 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 The sample was stimulated with oligonucleotides for 72 hours. FISH analyses with probes for the chromosome 12 centromere, BCL6 (3q27), MYC (8q24), CDKN2A (9p21), D9Z4 (9cen), JAX (11q22.3), Y62H132 (13q14.3), TP53 (17p13.1) ([employer]) and SEC63 (6q21) ([employer]) were done to determine if there were aneuploidy for any of these loci. Results of the analyses showed normal signal numbers for SEC63, JAX, S16Y505 and the chromosome 12 centromere within the [...] probes (analyte specific reagents, ASRs) developed by [employer] (and/or [employer], [employer] or [employer]) to interphase (non-dividing) nuclei isolated from peripheral blood/bone marrow. These are specific DNA probes that detect a number of commonly observed aberrations in hematologic malignancies. This test was developed and its performance characteristics determined by the Cytogenetics Lab at [facility]. It has not been cleared [...] ABMG, FACMG Performed By: #### CYTOG #### [place] [address] Observed: 03/31/2018 Status: F Source: [facility] TRANSFUSE PLATELETS 2:11 PM [facility] REPOSITORY CROSSMATCH EXPIRATION: 04/01/2018 UNIT NUMBER: [id number] BLOOD COMPONENT TYPE: Platelet Pheresis,Leukoreduced,[id number] STATUS OF UNIT: Issued, Final TRANSFUSION STATUS: OK TO TRANSFUSE UNIT NUMBER: [id number] BLOOD COMPONENT TYPE: Platelet Pheresis,Leukoreduced,[id number] STATUS OF UNIT: Issued, Final TRANSFUSION STATUS: OK TO TRANSFUSE Performed By: #### TPLT #### [place] [address] Observed: 03/31/2018 Status: F Source: [facility] DIRECT ANTIGLOBULIN 12:20 PM [facility] REPOSITORY JLUIS, POLYSPEC: NEGATIVE Performed By: #### DATO #### [place] [address] RETICULOCYTES Collected: 03/31/2018 Status: F Source: [facility] 11:48 AM [facility] REPOSITORY TYPE CODE TESTS RESULT OUT OF REFERENCE UNITS RANGE LAB OBS 0.51-1.81 % 0.90 *Retic Count LAB JOSE 0.026-0.095 M/uL Retic Absolute RETIAB <0.05 Result below linearity Performed By: #### RETIC, HAP #### [facility] [address] [place] [address] [place] [address] HAPTOGLOBIN Collected: 03/31/2018 Status: F Source: [facility] 11:48 AM [facility] REPOSITORY TYPE CODE TESTS RESULT OUT OF REFERENCE UNITS RANGE LAB HAP 44-215 mg/dL Haptoglobin 122 Performed By: #### RETIC, HAP #### [facility] [address] [place] [address] [address] PT*PTT Collected: 03/31/2018 Status: F Source: [facility] 9:23 AM [facility] REPOSITORY TYPE CODE TESTS RESULT OUT OF RANGE REFERENCE UNITS LAB PT 11.9-14.2 sec High PT 14.5 LAB INR 0.9-1.1 INR 1.1 LAB PTT 24.0-34.3 sec PTT 27.0 Performed By: #### PTPTT, HSDDI #### [facility] [address] [place] [address] [address] [place] [address] D-DIMER, HIGH Collected: 03/31/2018 Status: F Source: [facility] SENSITIVITY 9:23 AM [facility] REPOSITORY TYPE CODE TESTS RESULT OUT OF [...] For the assay in use at [facility] ([facility]), a cutoff of <0.50 mcg/mL has a Negative Predictive Value of 99.7% for exclusion of DVT in low and moderate PTP patients. Performed By: #### PTPTT, HSDDI #### U [facility] [address] [place] [address] [place] [address] *POC GLUCOSE BATTERY Collected: 03/31/2018 Status: F Source: [facility] 7:42 AM [facility] REPOSITORY TYPE CODE TESTS RESULT OUT OF REFERENCE UNITS RANGE LAB GLUP 70-99 mg/dL Glucose (poc 96 device) Result Comment: No BRAVE per RN: PATIENT TYPE LAB PCSTYP *POC Capillary SAMPLE TYPE Blood *POC GLUCOSE BATTERY Collected: 03/31/2018 Status: F Source: [facility] 7:01 AM [facility] REPOSITORY TYPE CODE TESTS RESULT OUT OF REFERENCE UNITS RANGE LAB GLUP 70-99 mg/dL Glucose (poc 79 device) Result Comment: No BRAVE per RN: PATIENT TYPE LAB PCSTYP *POC Capillary SAMPLE TYPE Blood *POC GLUCOSE BATTERY Collected: 03/31/2018 Status: F Source: [facility] 6:41 AM [facility] REPOSITORY TYPE CODE TESTS RESULT OUT OF REFERENCE UNITS RANGE LAB GLUP 70-99 mg/dL Low Glucose (poc 63 device) Result Comment: No BRAVE per RN: PATIENT TYPE LAB PCSTYP *POC Capillary SAMPLE TYPE Blood HEPATIC FUNCTION Collected: 03/31/2018 Status: F Source: [facility] PANEL 3:32 AM [facility] REPOSITORY TYPE CODE TESTS RESULT OUT OF [...] MGO, TRIG, FIB, LDO, CBCDFC #### [facility] [address] [place] [address] [place] [address] #### CMVPCR #### [place] [address] #### YIL2 #### Reference lab information reported with result CHEM 7 Collected: 03/31/2018 Status: F Source: [facility] 3:32 AM [facility] REPOSITORY TYPE CODE TESTS RESULT OUT OF [...] >60 mL/min/1.73 Low sqM Est GFR,non 43 Nigerian LAB GFRA >60 mL/min/1.73 Low sqM Est GFR, 52 Performed By: #### HFP, CHM7, CA, URICB, IPB, MGO, TRIG, FIB, LDO, CBCDFC #### [facility] [address] [place] [address] #### CMVPCR #### [place] [address] #### YIL2 #### Reference lab information reported with result CALCIUM Collected: 03/31/2018 Status: F Source: [facility] 3:32 AM [facility] REPOSITORY TYPE CODE TESTS RESULT OUT OF REFERENCE UNITS RANGE LAB CA 8.6-10.5 mg/dL Calcium 8.6 Performed By: #### HFP, CHM7, CA, URICB, IPB, MGO, TRIG, FIB, LDO, CBCDFC #### [facility] [address] [place] [address] #### CMVPCR #### [place] [address] #### YIL2 #### Reference lab information reported with result URIC ACID Collected: 03/31/2018 Status: F Source: [facility] 3:32 AM [facility] REPOSITORY TYPE CODE TESTS RESULT OUT OF RANGE REFERENCE UNITS LAB URIC 3.5-7.0 mg/dL Uric Acid 5.4 Performed By: #### HFP, CHM7, CA, URICB, IPB, MGO, TRIG, FIB, LDO, CBCDFC #### [facility] [id number] [place] [address] [address] [place] [address] #### CMVPCR #### [place] [address] #### YIL2 #### Reference lab information reported with result INORGANIC PHOSPHATE Collected: 03/31/2018 Status: F Source: [facility] 3:32 AM [facility] REPOSITORY TYPE CODE TESTS RESULT OUT OF REFERENCE UNITS RANGE LAB IP 2.2-4.6 mg/dL Inorg Phosphate 2.5 Performed By: #### HFP, CHM7, CA, URICB, IPB, MGO, TRIG, FIB, LDO, CBCDFC #### [place] [address] #### CMVPCR #### [address] [address] #### YIL2 #### Reference lab information reported with result MAGNESIUM Collected: 03/31/2018 Status: F Source: [facility] 3:32 [facility] REPOSITORY TYPE CODE TESTS RESULT OUT OF REFERENCE UNITS RANGE LAB MG 1.6-2.6 mg/dL Magnesium 2.4 Performed By: #### HFP, CHM7, CA, URICB, IPB, MGO, TRIG, FIB, LDO, CBCDFC #### [facility] [id number] [place] [address] #### CMVPCR #### [address] [address] #### YIL2 #### Reference lab information reported with result TRIGLYCERIDES Collected: 03/31/2018 Status: F Source: [facility] 3:32 AM [facility] REPOSITORY TYPE CODE TESTS RESULT OUT OF REFERENCE UNITS RANGE LAB TRIG <150 mg/dL TRIGLYCERIDES High 541 Performed By: #### HFP, CHM7, CA, URICB, IPB, MGO, TRIG, FIB, LDO, CBCDFC #### [facility] [id number] [place] [address] [address] #### CMVPCR #### [address] [address] #### YIL2 #### Reference lab information reported with result FIBRINOGEN-CLOTTABLE Collected: Status: F Source: [facility] 03/31/2018 3:32 AM [facility] REPOSITORY TYPE CODE TESTS RESULT OUT OF RANGE REFERENCE UNITS LAB FIB 220-410 mg/dL High 507 Fibrinogen-C lottable Performed By: #### HFP, CHM7, CA, URICB, IPB, MGO, TRIG, FIB, LDO, CBCDFC #### [facility] [id number] [place] [address] [address] #### CMVPCR #### [address] [address] #### YIL2 #### Reference lab information reported with result LD TOTAL Collected: 03/31/2018 Status: F Source: [facility] 3:32 AM [facility] REPOSITORY TYPE CODE TESTS RESULT OUT OF RANGE REFERENCE UNITS LAB LD 100-190 U/L High LD Total 5629 Performed By: #### HFP, CHM7, CA, URICB, IPB, MGO, TRIG, FIB, LDO, CBCDFC #### [facility] [id number] [place] [address] [address] #### CMVPCR #### [address] [address] #### YIL2 #### Reference lab information reported with result CBC,PLATELET,DIFFERENTIAL - CCL Collected: Status: F Source: [facility] 03/31/2018 3:32 AM [facility] REPOSITORY TYPE CODE TESTS RESULT OUT OF [...] LAB AMONO 0.30-0.8 K/uL Low 2 Abs [place] 0.21 LAB AEOS <0.55 K/uL Abs Eos 1.47 High LAB ABASO <0.09 K/uL Abs Baso 0.00 LAB ALYOMA 0 K/uL Abs 11.15 High Lymphoma LAB PLTEST PLATELET ESTIMATE Automated platelet count confirmed by manual slide review. Performed By: #### HFP, CHM7, CA, URICB, IPB, MGO, TRIG, FIB, LDO, CBCDFC #### [facility] [address] [place] [address] [facility] [address] [place], [place] [address] #### CMVPCR #### [place] [address] #### YIL2 #### Reference lab information reported with result QUANTITATIVE CMV BY PCR Collected: 03/31/2018 Status: F Source: [facility] - E 3:32 AM [facility] REPOSITORY TYPE CODE TESTS RESULT OUT OF [...] MGO, TRIG, FIB, LDO, CBCDFC #### [facility] [place] [address] #### CMVPCR #### [place] [address] #### YIL2 #### Reference lab information reported with result INTERLEUKIN 2 RECEPTOR Collected: 03/31/2018 Status: F Source: [facility] ([place] 2R) 3:32 AM [facility] REPOSITORY TYPE CODE TESTS RESULT OUT OF REFERENCE UNITS RANGE LAB IL2R <=1033 pg/mL Interleukin High 2 Receptor ([place] [id number]) Result Comment: (NOTE) Diluted and confirmed. INTERPRETIVE INFORMATION: Cytokines Results are used to understand the pathophysiology of immune, infectious, or inflammatory disorders, or may be used for research purposes. Test developed and characteristics determined by [facility] [employer]. See Compliance Statement B: [facility]/ Performed by [facility], [address] [place] [id number] [email or web address] Deandre Aguiar MD - Lab. Director Test Performed by: [facility] [address] [place] [address] Performed By: #### HFP, CHM7, CA, URICB, IPB, MGO, TRIG, FIB, LDO, CBCDFC #### [facility] [place] [address] #### CMVPCR #### [address], [place] [address] #### YIL2 #### Reference lab information reported with result FERRITIN Collected: 03/31/2018 Status: F Source: [facility] 3:32 AM [facility] REPOSITORY TYPE CODE TESTS RESULT OUT OF RANGE REFERENCE UNITS LAB FERI 22-322 ng/mL High *Ferritin 3936 Performed By: #### FERIB #### [facility] [address] [place] [address] CHEM 7 Collected: 03/30/2018 Status: F Source: [facility] 5:15 PM [facility] REPOSITORY TYPE CODE TESTS RESULT OUT OF [...] >60 mL/min/1.73 Low sqM Est GFR,non 45 Nigerian LAB GFRA >60 mL/min/1.73 Low sqM Est GFR, 55 Performed By: #### CHM7, CA, URICB, IPB, LDO, HEP1B #### [facility] [address] [address] CALCIUM Collected: 03/30/2018 Status: F Source: [facility] 5:15 PM [facility] REPOSITORY TYPE CODE TESTS RESULT OUT OF REFERENCE UNITS RANGE LAB CA 8.6-10.5 mg/dL Calcium 8.7 Performed By: #### CHM7, CA, URICB, IPB, LDO, HEP1B #### [facility] [id number] [place] [address] [address] URIC ACID Collected: 03/30/2018 Status: F Source: [facility] 5:15 PM [facility] REPOSITORY TYPE CODE TESTS RESULT OUT OF RANGE REFERENCE UNITS LAB URIC 3.5-7.0 mg/dL Uric Acid 5.3 Performed By: #### CHM7, CA, URICB, IPB, LDO, HEP1B #### [facility] [address] [place] [id number] [place] [address] [address] [place] [address] INORGANIC PHOSPHATE Collected: 03/30/2018 Status: F Source: [facility] 5:15 PM [facility] REPOSITORY TYPE CODE TESTS RESULT OUT OF REFERENCE UNITS RANGE LAB IP 2.2-4.6 mg/dL Inorg Phosphate 2.3 Performed By: #### CHM7, CA, URICB, IPB, LDO, HEP1B #### [facility] [address] [place] [address] LD TOTAL Collected: 03/30/2018 Status: F Source: [facility] 5:15 [facility] REPOSITORY TYPE CODE TESTS RESULT OUT OF RANGE REFERENCE UNITS LAB LD 100-190 U/L High LD Total 5385 Performed By: #### CHM7, CA, URICB, IPB, LDO, HEP1B #### [facility] [id number] [place] [address] HEPATITIS ACUTE PANEL Collected: 03/30/2018 Status: F Source: [facility] 5:15 [facility] REPOSITORY TYPE CODE TESTS RESULT OUT OF REFERENCE UNITS RANGE LAB HBSAG Negative Hep B Surface Ag Negative LAB HBCBG Negative Hep B Core Ab,Total Negative (IgG+IgM) LAB HBCBM Negative Hep B Core IgM Ab Negative LAB HAABM Negative Hepatitis A IgM Negative Ab LAB HCAB Negative Hepatitis C Negative Antibody Performed By: #### CHM7, CA, URICB, IPB, LDO, HEP1B #### 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 [address] [place] [address] [place] [address] URINE MICROSCOPIC Collected: 03/30/2018 Status: F Source: [facility] 5:15 PM [facility] REPOSITORY TYPE CODE TESTS RESULT OUT OF REFERENCE UNITS RANGE LAB UWBC 0-5 /HPF WBC Urine 0-5 LAB URBC 0-2 /HPF RBC Urine 0-2 LAB BACT Absent Bacteria Absent LAB UCOM COMMENT URINE Mucus LAB EPIS /HPF Squamous Epithelial 1+ Performed By: #### UASR, UMICR #### [facility] [address] [place] [address] [place] [address] Observed: 03/30/2018 Status: F Source: [facility] BLOOD:ROUTINE I 5:15 PM [facility] REPOSITORY SOURCE: BLOOD, PERIPHERAL: Site not specified RESULT: NO GROWTH DAY 5 OF 5 REPORT STATUS: 04/04/2018 FINAL Performed By: ###Kelsy FOWLER #### [address] [address] Blood Cultures processed at: [facility] Observed: 03/30/2018 Status: F Source: [facility] BLOOD:ROUTINE II 5:15 PM [facility] REPOSITORY SOURCE: BLOOD, PERIPHERAL: Site not specified RESULT: NO GROWTH DAY 5 OF 5 REPORT STATUS: 04/04/2018 FINAL Performed By: #### MALCOLM2 #### [address] [address] Blood Cultures processed at: [facility] NUC PET LYMPHOMA Observed: 03/30/2018 Status: F Source: [facility] 3:42 PM [facility] REPOSITORY EXAM: NUC PET LYMPHOMA, 03/30/2018 15:10 [...] GLUCOSE BATTERY Collected: 03/30/2018 Status: F Source: [facility] 3:05 PM [facility] REPOSITORY TYPE CODE TESTS RESULT OUT OF REFERENCE UNITS RANGE LAB GLUP 70-99 mg/dL Glucose (poc 89 device) Result Comment: No BRAVE per RN: PATIENT TYPE LAB PCSTYP *POC Capillary SAMPLE TYPE Blood *POC GLUCOSE BATTERY Collected: 03/30/2018 Status: F Source: [facility] 1:25 PM [facility] REPOSITORY TYPE CODE TESTS RESULT OUT OF REFERENCE UNITS RANGE LAB GLUP 70-99 mg/dL Glucose (poc 73 device) Result Comment: No BRAVE per RN: PATIENT TYPE LAB PCSTYP *POC Capillary SAMPLE TYPE Blood *POC GLUCOSE BATTERY Collected: 03/30/2018 Status: F Source: [facility] 12:58 PM [facility] REPOSITORY TYPE CODE TESTS RESULT OUT OF REFERENCE UNITS RANGE LAB GLUP 70-99 mg/dL Glucose (poc 74 device) Result Comment: No BRAVE per RN: PATIENT TYPE LAB PCSTYP *POC Capillary SAMPLE TYPE Blood *POC GLUCOSE BATTERY Collected: 03/30/2018 Status: F Source: [facility] 12:48 PM [facility] REPOSITORY TYPE CODE TESTS RESULT OUT OF REFERENCE UNITS RANGE LAB GLUP 70-99 mg/dL Low Glucose (poc 67 device) Result Comment: No BRAVE per RN: PATIENT TYPE LAB PCSTYP *POC SAMPLE TYPE Venous *POC GLUCOSE BATTERY Collected: 03/30/2018 Status: F Source: [facility] 12:47 PM [facility] REPOSITORY TYPE CODE TESTS RESULT OUT OF REFERENCE UNITS RANGE LAB GLUP 70-99 mg/dL Glucose (poc 75 device) Result Comment: No BRAVE per RN: PATIENT TYPE LAB PCSTYP *POC SAMPLE TYPE Venous CHEM 7 Collected: 03/30/2018 Status: F Source: [facility] 12:22 PM [facility] REPOSITORY TYPE CODE TESTS RESULT OUT OF [...] >60 mL/min/1.73 Low sqM Est GFR,non 46 Nigerian LAB GFRA >60 mL/min/1.73 Low sqM Est GFR, 55 Performed By: #### JETTM7, CA, URICB, IPB, LDO #### U [facility] [address] [place] [address] CALCIUM Collected: 03/30/2018 Status: F Source: [facility] 12:22 PM [facility] REPOSITORY TYPE CODE TESTS RESULT OUT OF REFERENCE UNITS RANGE LAB CA 8.6-10.5 mg/dL Calcium 8.6 Performed By: #### CHM7, CA, URICB, IPB, LDO #### [facility] [address] [place] [address] URIC ACID Collected: 03/30/2018 Status: F Source: [facility] 12:22 PM [facility] REPOSITORY TYPE CODE TESTS RESULT OUT OF RANGE REFERENCE UNITS LAB URIC 3.5-7.0 mg/dL Uric Acid 5.6 Performed By: #### CHM7, CA, URICB, IPB, LDO #### [facility] [address] [place] [address] [facility] [address] [place] [address] INORGANIC PHOSPHATE Collected: 03/30/2018 Status: F Source: [facility] 12:22 PM [facility] REPOSITORY TYPE CODE TESTS RESULT OUT OF REFERENCE UNITS RANGE LAB IP 2.2-4.6 mg/dL Inorg Phosphate 3.2 Performed By: #### CHM7, CA, URICB, IPB, LDO #### [facility] [address] [place] [address] [facility] [address] [place] [address] LD TOTAL Collected: 03/30/2018 Status: F Source: [facility] 12:22 PM [facility] REPOSITORY TYPE CODE TESTS RESULT OUT OF RANGE REFERENCE UNITS LAB LD 100-190 U/L High LD Total 5085 Performed By: #### CHM7, CA, URICB, IPB, LDO #### [facility] [address] [place] [id number] [place] [address] [address] [place] [address] US ABDOMEN RUQ/LIVER/GB Observed: 03/30/2018 Status: F Source: [facility] 9:54 AM [facility] REPOSITORY EXAM: US ABDOMEN RUQ/LIVER/GB, 03/30/2018 08:27 [...] ductal dilatation. Collected: 03/30/2018 Status: F Source: [facility] 3:46 AM [facility] REPOSITORY TYPE CODE TESTS RESULT OUT OF RANGE REFERENCE UNITS LAB AST 14-40 U/L High AST 130 Performed By: #### ASTO, CHM7, BILI, CA, URICB, IPB, MGO, LDO, ALB, CBCDFC #### [facility] [address] [address] CHEM 7 Collected: 03/30/2018 Status: F Source: [facility] 3:46 AM [facility] REPOSITORY TYPE CODE TESTS RESULT OUT OF [...] >60 mL/min/1.73 Low sqM Est GFR,non 45 Nigerian LAB GFRA >60 mL/min/1.73 Low sqM Est GFR, 54 Performed By: #### ASTO, CHM7, BILI, CA, URICB, IPB, MGO, LDO, ALB, CBCDFC #### [facility] [address] [place] [address] BILIRUBIN, TOTAL AND Collected: 03/30/2018 Status: F Source: [facility] DIRECT 3:46 AM [facility] REPOSITORY TYPE CODE TESTS RESULT OUT OF REFERENCE UNITS RANGE LAB BILT <1.5 mg/dL High Bilirubin Total 3.4 LAB BILD <0.3 mg/dL High Bilirubin 1.5 Direct Performed By: #### ASTO, CHM7, BILI, CA, URICB, IPB, MGO, LDO, ALB, CBCDFC #### [facility] [address] [place] [address] [address] [address] CALCIUM Collected: 03/30/2018 Status: F Source: [facility] 3:46 AM [facility] REPOSITORY TYPE CODE TESTS RESULT OUT OF REFERENCE UNITS RANGE LAB CA 8.6-10.5 mg/dL Calcium 8.7 Performed By: #### ASTO, CHM7, BILI, CA, URICB, IPB, MGO, LDO, ALB, CBCDFC #### [facility] [address] [place] [address] URIC ACID Collected: 03/30/2018 Status: F Source: [facility] 3:46 AM [facility] REPOSITORY TYPE CODE TESTS RESULT OUT OF RANGE REFERENCE UNITS LAB URIC 3.5-7.0 mg/dL Uric Acid 6.2 Performed By: #### ASTO, CHM7, BILI, CA, URICB, IPB, MGO, LDO, ALB, CBCDFC #### [facility] [address] [place] [address] [address] [address] INORGANIC PHOSPHATE Collected: 03/30/2018 Status: F Source: [facility] 3:46 AM [facility] REPOSITORY TYPE CODE TESTS RESULT OUT OF REFERENCE UNITS RANGE LAB IP 2.2-4.6 mg/dL Inorg Phosphate 3.5 Performed By: #### ASTO, CHM7, BILI, CA, URICB, IPB, MGO, LDO, ALB, CBCDFC #### [facility] [address] [place] [address] MAGNESIUM Collected: 03/30/2018 Status: F Source: [facility] 3:46 AM [facility] REPOSITORY TYPE CODE TESTS RESULT OUT OF REFERENCE UNITS RANGE LAB MG 1.6-2.6 mg/dL Magnesium 2.1 Performed By: #### ASTO, CHM7, BILI, CA, URICB, IPB, MGO, LDO, ALB, CBCDFC #### [facility] [address] [place] [address] LD TOTAL Collected: 03/30/2018 Status: F Source: [facility] 3:46 AM [facility] REPOSITORY TYPE CODE TESTS RESULT OUT OF RANGE REFERENCE UNITS LAB LD 100-190 U/L High LD Total 5123 Performed By: #### ASTO, CHM7, BILI, CA, URICB, IPB, MGO, LDO, ALB, CBCDFC #### [facility] [address] [place] [address] ALBUMIN Collected: 03/30/2018 Status: F Source: [facility] 3:46 AM [facility] REPOSITORY TYPE CODE TESTS RESULT OUT OF [...] URICB, IPB, MGO, LDO, ALB, CBCDFC #### [facility] [address] [address] CBC,PLATELET,DIFFERENTIAL - CCL Collected: Status: F Source: [facility] 03/30/2018 3:46 AM [facility] REPOSITORY TYPE CODE TESTS RESULT OUT OF [...] 4.79 High LAB AMONO 0.30-0.82 K/uL Abs [place] 1.33 High LAB AEOS <0.55 K/uL Abs Eos 0.80 High LAB ABASO <0.09 K/uL Abs Baso 0.27 High LAB AMETA 0.00 K/uL Abs [place] 0.27 High LAB ALYOMA 0 K/uL Abs [...] IPB, MGO, LDO, ALB, CBCDFC #### [facility] [id number] [place] [address] [address] [place] [address] CHEM 7 Collected: 03/29/2018 Status: F Source: [facility] 10:04 PM [facility] REPOSITORY TYPE CODE TESTS RESULT OUT OF [...] >60 mL/min/1.73 Low sqM Est GFR,non 42 Nigerian LAB GFRA >60 mL/min/1.73 Low sqM Est GFR, 51 Performed By: #### JETTM7, CA, URICB, IPB, LDO #### [facility] [address] [place] [address] [place] [address] CALCIUM Collected: 03/29/2018 Status: F Source: [facility] 10:04 PM [facility] REPOSITORY TYPE CODE TESTS RESULT OUT OF REFERENCE UNITS RANGE LAB CA 8.6-10.5 mg/dL Calcium 9.0 Performed By: #### JETTM7, CA, URICB, IPB, LDO #### [facility] [address] [place] [address] [address] [place] [address] URIC ACID Collected: 03/29/2018 Status: F Source: [facility] 10:04 PM [facility] REPOSITORY TYPE CODE TESTS RESULT OUT OF RANGE REFERENCE UNITS LAB URIC 3.5-7.0 mg/dL Uric Acid 6.0 Performed By: #### CHM7, CA, URICB, IPB, LDO #### [facility] [address] [place] [address] [address] [place] [address] INORGANIC PHOSPHATE Collected: 03/29/2018 Status: F Source: [facility] 10:04 PM [facility] REPOSITORY TYPE CODE TESTS RESULT OUT OF REFERENCE UNITS RANGE LAB IP 2.2-4.6 mg/dL Inorg Phosphate 2.9 Performed By: #### CHM7, CA, URICB, IPB, LDO #### [facility] [address] [place] [id number] [place] [address] [address] [place] [address] LD TOTAL Collected: 03/29/2018 Status: F Source: [facility] 10:04 PM [facility] REPOSITORY TYPE CODE TESTS RESULT OUT OF RANGE REFERENCE UNITS LAB LD 100-190 U/L High LD Total 5489 Performed By: #### CHM7, CA, URICB, IPB, LDO #### [facility] [address] [place] [id number] [place] [address] [address] [place] [address] Observed: 03/29/2018 Status: F Source: [facility] TYPE AND CROSS 5:42 PM [facility] REPOSITORY ABO/RH(D): O POSITIVE ANTIBODY SCREEN: NEGATIVE Performed By: #### XM #### [facility] [address] [place] [address] [address] [address] IMMUNOPHENOTYPING, BLOOD Collected: Status: X Source: [facility] 03/29/2018 5:29 PM [facility] REPOSITORY TYPE CODE TESTS RESULT OUT OF REFERENCE UNITS RANGE LAB PBIPP This result Immunophenot has been yping, blood cancelled. Performed By: #### PBIPP #### [facility] (DEFAULT) [address] [place] [address] CYTOGENETICS Observed: 03/29/2018 Status: F Source: [facility] 5:29 PM [facility] REPOSITORY Cytogenetics Report Patient Name: LEXI DICKINSON Med. Rec #: [id number] Submitting Physician: LINDA CRUZ Clinical History Mantle Cell Lymphoma SPECIMEN(S) RECEIVED: A: Peripheral Blood KARYOTYPE Test not performed INTERPRETATION This is a peripheral blood sample from a patient with a history of mantle cell lymphoma. A bone biopsy was also received from this patient (see [id number]); therefore, analysis was performed on the bone [...] was also received from this patient (see [id number]); therefore, analysis will be performed on the bone biopsy and not the peripheral blood. Nica George, PhD, ABMG, FACMG Performed By: #### CYTOG #### [facility] [place] [address] [address] [place] [address] IMMUNOPHENOTYPING, BLOOD Collected: Status: C Source: [facility] 03/29/2018 3:53 PM [facility] REPOSITORY TYPE CODE TESTS RESULT OUT OF REFERENCE UNITS RANGE LAB ICINT Immunophenotyping (PBIPP) SEE NOTES Result Comment: (NOTE) IMMUNOPHENOTYPING DIAGNOSIS PATIENT NAME: LEXI DICKINSON : 1945 ACCN#: [id number] REVIEWED BY: Susie Vickers M.D., Ph.D. [id number] SAMPLE TYPE: Peripheral Blood LABORATORY INTERPRETATION: Immunophenotypic [...] of surface immunoglobulin light chains shows a [place]:Lambda ratio of 47:5 with moderate staining intensity. MARKER DESCRIPTION LYM REG% ABS/mm3 NORMAL % NML ABS ABSOLUTE LYMPHOCYTE COUNT 38901 [id number] CD19+ B CELL 70.2 19415 2.0-21.0 20-1008 CD19+/CD20+ B CELL 55.5 8863 [...] determined The Flow Cytometry Laboratory at [facility]. It has not been cleared or approved by the FDA. This laboratory is certified under the Clinical Laboratory Improvement Amendments (CLIA) as qualified to perform high complexity clinical laboratory testing. This test is used for clinical purposes. It should not be regarded as investigational or for research. The [facility] Flow Cytometry Laboratory lower limit of CLL MRD detection is 0.1% of the gated lymphocytes. Performed By: #### PBIPP #### [place] [address] PT*PTT Collected: 03/29/2018 Status: F Source: [facility] 3:52 PM [facility] REPOSITORY TYPE CODE TESTS RESULT OUT OF RANGE REFERENCE UNITS LAB PT 11.9-14.2 sec PT 13.7 LAB INR 0.9-1.1 INR 1.0 LAB PTT 24.0-34.3 sec PTT 25.0 Performed By: #### PTPTT, HFP, CHM7, CA, URICB, IPB, MGO, LDO, CBCDFC, IAPTHD #### [place] [address] HEPATIC FUNCTION Collected: 03/29/2018 Status: F Source: [facility] 3:52 PM [facility] REPOSITORY TYPE CODE TESTS RESULT OUT OF [...] URICB, IPB, MGO, LDO, CBCDFC, IAPTHD #### [facility] [address] [place] [address] [facility] [address] [place] [address] CHEM 7 Collected: 03/29/2018 Status: F Source: [facility] 3:52 PM [facility] REPOSITORY TYPE CODE TESTS RESULT OUT OF [...] >60 mL/min/1.73 Low sqM Est GFR,non 47 Nigerian LAB GFRA >60 mL/min/1.73 Low sqM Est GFR, 57 Performed By: #### PTPTT, HFP, CHM7, CA, URICB, IPB, MGO, LDO, CBCDFC, IAPTHD #### [facility] [address] [place] [address] [address] CALCIUM Collected: 03/29/2018 Status: F Source: [facility] 3:52 PM [facility] REPOSITORY TYPE CODE TESTS RESULT OUT OF REFERENCE UNITS RANGE LAB CA 8.6-10.5 mg/dL Calcium 8.8 Performed By: #### PTPTT, HFP, CHM7, CA, URICB, IPB, MGO, LDO, CBCDFC, IAPTHD #### [facility] [address] [place] [address] [facility] [address] [address] URIC ACID Collected: 03/29/2018 Status: F Source: [facility] 3:52 PM [facility] REPOSITORY TYPE CODE TESTS RESULT OUT OF RANGE REFERENCE UNITS LAB URIC 3.5-7.0 mg/dL Uric Acid 5.7 Performed By: #### PTPTT, HFP, CHM7, CA, URICB, IPB, MGO, LDO, CBCDFC, IAPTHD #### [facility] [address] [address] INORGANIC PHOSPHATE Collected: 03/29/2018 Status: F Source: [facility] 3:52 PM [facility] REPOSITORY TYPE CODE TESTS RESULT OUT OF REFERENCE UNITS RANGE LAB IP 2.2-4.6 mg/dL Inorg Phosphate 2.6 Performed By: #### PTPTT, HFP, CHM7, CA, URICB, IPB, MGO, LDO, CBCDFC, IAPTHD #### [facility] [address] [address] MAGNESIUM Collected: 03/29/2018 Status: F Source: [facility] 3:52 PM [facility] REPOSITORY TYPE CODE TESTS RESULT OUT OF REFERENCE UNITS RANGE LAB MG 1.6-2.6 mg/dL Magnesium 2.0 Performed By: #### PTPTT, HFP, CHM7, CA, URICB, IPB, MGO, LDO, CBCDFC, IAPTHD #### [facility] [address] [address] LD TOTAL Collected: 03/29/2018 Status: F Source: [facility] 3:52 PM [facility] REPOSITORY TYPE CODE TESTS RESULT OUT OF RANGE REFERENCE UNITS LAB LD 100-190 U/L High LD Total 5037 Performed By: #### PTPTT, HFP, CHM7, CA, URICB, IPB, MGO, LDO, CBCDFC, IAPTHD #### [facility] [address] [place] [address] CBC,PLATELET,DIFFERENTIAL - CCL Collected: Status: F Source: [facility] 03/29/2018 3:52 PM [facility] REPOSITORY TYPE CODE TESTS RESULT OUT OF [...] High LAB AMONO 0.30-0.82 K/uL 1.18 Abs [place] High LAB AEOS <0.55 K/uL 1.18 Abs Eos High LAB ABASO <0.09 K/uL 0.29 Abs Baso High LAB AMETA 0.00 K/uL 0.59 Abs [place] High LAB AMYEL 0.00 K/uL 0.29 Abs [...] IPB, MGO, LDO, CBCDFC, IAPTHD #### [facility] [address] [place] [address] [facility] [address] [place] [address] PATHOLOGIST DIFFERENTIAL Collected: 03/29/2018 Status: F Source: [facility] 3:52 PM [facility] REPOSITORY TYPE CODE TESTS RESULT OUT OF [...] URICB, IPB, MGO, LDO, CBCDFC, IAPTHD #### [facility] [address] [place] [address] [place] [address] ONCOLOGY VISIT REPORT Observed: 03/28/2018 Status: F Source: [place] 5:26 PM [facility] REPOSITORY [facility] [address] [place] [address] OFFICE VISIT Date of Service: 03/28/18 1337 MR#: [id number] Acct: [id number] Name: LEXI DICKINSON Rep #: [id number] : 1945 From: Karri Ybarra MD Age/Sex: 72/M Location: [facility] Status: Signed Subjective - Date of Service [...] Instructions Recorded Primary Care Provider: Luis Alberto Tatum DO Referring Provider: - Problem List (1) History of non-Hodgkin's lymphoma Status: Chronic (2) Mantle cell lymphoma Status: Chronic Qualifiers: Lymphoma site: unspecified region Qualified Code(s): C83.10 - Mantle cell lymphoma, unspecified site Code Visit Office Visits / Consults: 02149 OV L5 Est 03/28/18 1726 <Electronically signed by Karri Ybarra MD> Date Karri Ybarra MD Cosigner Signature: Date (if applicable) CC: MISCELLANEOUS LAB Collected: 03/28/2018 Status: F Source: [facility] PROCEDURE 2 12:59 PM [facility] REPOSITORY Order Comment: Reason for Laboratory Test PHERIPHERAL BLOOD CYTOGENETICS Comments: [id number] Chromosome Analysis, Leukemia/Lymphoma List Test(s) Ordered by Physician: [id number] Chromosome Analysis, Leukemia/Lymphoma TYPE CODE TESTS RESULT OUT OF RANGE REFERENCE UNITS LAB L801.1543 Normal [facility] LAB TEST 2 Result Comment: TEST [...] rearrangement. Director Review: Comment: Sarah Julio, PhD, [facility] TESTING PERFORMED AT [facility]. ORIGINAL REPORT ON FILE IN LAB CONTAINS ADDITIONAL TEST SITE INFORMATION. Performed By: #### L801.1543 #### [facility] [address] [place], [address] MISCELLANEOUS LAB Collected: 03/28/2018 Status: F Source: [facility] PROCED[facility] 12:40 PM [facility] REPOSITORY Order Comment: Reason for Laboratory Test PERIPHERAL BLOOD CYTOMETRY FLOW Comments: [id number] Flow Cytometry Test(s) Ordered: [id number] Flow Cytometry TYPE CODE TESTS RESULT OUT [...] developed and its performance characteristics determined by [facility]. It has not been cleared or approved by the U.S. Food and Drug Administration. The FDA has determined that such clearance or approval is not necessary. This test is used for clinical purposes. It should not be regarded as investigational or for research. TESTING PERFORMED AT [facility]. ORIGINAL REPORT ON FILE IN LAB CONTAINS ADDITIONAL TEST SITE INFORMATION. Performed By: #### L801.1541 #### [facility] [address] [place], [address] CBC W/DIFF, AUTOMATED Collected: 03/28/2018 Status: C Source: [place] 11:47 AM [facility] REPOSITORY Order Comment: Reason for Laboratory Test . CRITICAL VALUE VERIFIED. CALLED TO DANNY AT [facility] 03/28/18 1222 Rani Ca. RESULTS READ BACK [...] as: December Performed By: #### L100.0100 #### [facility] [address] [place], [address] CBC W/DIFF, AUTOMATED Collected: 03/28/2018 Status: C Source: [facility] 10:52 AM [facility] REPOSITORY Order Comment: Reason for Laboratory Test [...] foll Performed By: #### L100.0100, L500.4050, L504.2610, L100.4428 #### [facility] [place], [address] COMPREHENSIVE METABOLIC Collected: 03/28/2018 Status: F Source: [place] 10:52 AM [facility] REPOSITORY Order Comment: Reason for Laboratory Test [...] By: #### L100.0100, L500.4050, L504.2610, L100.4425 #### [facility] [address] [place], [address] LDH Collected: 03/28/2018 Status: F Source: [place] 10:52 AM [facility] REPOSITORY Order Comment: Reason for Laboratory Test . Serial Specimen #1, #2 or #3? 1 TYPE CODE TESTS RESULT OUT OF RANGE REFERENCE UNITS LAB L504.2610 87-241 U/L High LDH 3221 Performed By: #### L100.0100, L500.4050, L504.2610, L100.4425 #### [facility] [address] [place], [place], [address] NRBC PANEL Collected: 03/28/2018 Status: F Source: [place] 10:52 AM [facility] REPOSITORY Order Comment: Reason for Laboratory Test . CRITICAL VALUE VERIFIED. CALLED TO MORENA BELTRAN 03/28/18 1113 Rani Ca. RESULTS READ BACK BY SAME . TYPE CODE TESTS RESULT OUT OF RANGE REFERENCE UNITS LAB L100.4450 0-5 % Normal NRBC, FLAGGED 0.9 LAB L100.4455 0-5 10 3/uL Normal NRBC # 0.34 Performed By: #### L100.0100, L500.4050, L504.2610, L100.4425 #### [facility] [address] [place], [address] Observed: 03/14/2018 Status: F Source: [place] STOOL OCCULT BLOOD 6:00 AM [facility] IFOB REPOSITORY Reason for Laboratory Test . STOB iFOB Occult Blood Negative Performed By: #### M100.7900 #### [facility] [address] [place], [address] ONCOLOGY VISIT REPORT Observed: 03/13/2018 Status: F Source: [place] 3:59 PM [facility] REPOSITORY [facility] [place] [address] OFFICE VISIT Date of Service: 03/13/18 1517 MR#: [id number] Acct: [id number] Name: LEXI DICKINSON Rep #: [id number] : 1945 From: Karri Ybarra MD Age/Sex: [...] Instructions Recorded Primary Care Provider: Luis Alberto Tatum DO Referring Provider: - Problem List (1) History of non-Hodgkin's lymphoma Status: Chronic (2) Mantle cell lymphoma Status: Acute Qualifiers: Lymphoma site: unspecified region Qualified Code(s): C83.10 - Mantle cell lymphoma, unspecified site Code Visit Office Visits / Consults: 67566 OV L4 Est 07/16/18 1559 <Electronically signed by Karri Ybarra MD> Date Karri Ybarra MD Cosigner Signature: Date (if applicable) CC: CBC W/DIFF, AUTOMATED Collected: 03/13/2018 Status: F Source: [facility] 2:20 PM [facility] REPOSITORY Order Comment: Reason for Laboratory Test [...] Lymph 2.06 Performed By: #### L100.0100 #### [facility] [place], [address] COMPREHENSIVE METABOLIC Collected: 03/13/2018 Status: F Source: [facility] 2:20 PM [facility] REPOSITORY Order Comment: Reason for Laboratory Test [...] GAP 6 Performed By: #### L500.4050 #### [facility] [address] [place], [address] ONCOLOGY VISIT REPORT Observed: 03/01/2018 Status: F Source: [place] 6:08 PM [facility] REPOSITORY [facility] [address] [place] [address] OFFICE VISIT Date of Service: 02/27/18 1650 MR#: [id number] Acct: [id number] Name: LEXI DICKINSON Rep #: [id number] : 1945 From: Karri Ybarra MD Age/Sex: 72/M Location: [facility] Status: Signed Subjective - Date of Service [...] DAILY 11/24/16 Primary Care Provider: Luis Alberto Tatum DO Referring Provider: - Problem List (1) History of non-Hodgkin's lymphoma Status: Chronic (2) Mantle cell lymphoma Status: Acute Qualifiers: Lymphoma site: unspecified region Qualified Code(s): C83.10 - Mantle cell lymphoma, unspecified site Code Visit Office Visits / Consults: 05114 OV L4 Est 03/01/18 1808 <Electronically signed by Karri Ybarra MD> Date Karri Ybarra MD Cosigner Signature: Date (if applicable) CC: CBC W/DIFF, AUTOMATED Collected: 02/27/2018 Status: C Source: [facility] 4:07 PM [facility] REPOSITORY Order Comment: Reason for Laboratory Test [...] Performed By: #### L100.0100, L500.4050, L504.2610 #### [facility] [address] [place], [address] COMPREHENSIVE METABOLIC Collected: 02/27/2018 Status: F Source: [facility] 4:07 PM [facility] REPOSITORY Order Comment: Reason for Laboratory Test [...] Performed By: #### L100.0100, L500.4050, L504.2610 #### [facility] [address], [place], [address] LDH Collected: 02/27/2018 Status: F Source: [place] 4:07 PM [facility] REPOSITORY Order Comment: Reason for Laboratory Test . Serial Specimen #1, #2 or #3? 1 TYPE CODE TESTS RESULT OUT OF RANGE REFERENCE UNITS LAB L504.2610 87-241 U/L High LDH 246 Performed By: #### L100.0100, L500.4050, L504.2610 #### [facility] [address] [place], [place], [address] ALBUMIN Collected: 02/24/2018 Status: F Source: [facility] 4:22 AM [facility] REPOSITORY TYPE CODE TESTS RESULT OUT OF REFERENCE UNITS RANGE LAB ALB 3.5-5.0 g/dL Low Albumin 3.4 Performed By: #### ALB, C7PMC, LDO, URICB, CBCDFC #### [facility] [address] [place] [id number] [place] [address] [place] [address] CHM7,IP,MG,CA Collected: 02/24/2018 Status: F Source: [facility] 4:22 AM [facility] REPOSITORY TYPE CODE TESTS RESULT OUT OF [...] >60 mL/min/1.73 Low sqM Est GFR,non 43 Nigerian LAB GFRA >60 mL/min/1.73 Low sqM Est GFR, 52 Performed By: #### ALB, C7PMC, LDO, URICB, CBCDFC #### U [facility] [address] [place] [address] [place] [address] LD TOTAL Collected: 02/24/2018 Status: F Source: [facility] 4:22 AM [facility] REPOSITORY TYPE CODE TESTS RESULT OUT OF RANGE REFERENCE UNITS LAB LD 100-190 U/L High LD Total 226 Performed By: #### ALB, C7PMC, LDO, URICB, CBCDFC #### [facility] [address] [place] [address] [place] [address] URIC ACID Collected: 02/24/2018 Status: F Source: [facility] 4:22 AM [facility] REPOSITORY TYPE CODE TESTS RESULT OUT OF RANGE REFERENCE UNITS LAB URIC 3.5-7.0 mg/dL Uric Acid 4.8 Performed By: #### ALB, C7PMC, LDO, URICB, CBCDFC #### [facility] [address] [place] [address] [facility] [address] [place], [place] [address] CBC,PLATELET,DIFFERENTIAL - CCL Collected: Status: F Source: [facility] 02/24/2018 4:22 AM [facility] REPOSITORY TYPE CODE TESTS RESULT OUT OF [...] Lymph 2.70 LAB AMONO 0.30-0.82 K/uL Abs [place] 0.22 Low LAB AEOS <0.55 K/uL Abs Eos 0.14 LAB ABASO <0.09 K/uL Abs Baso 0.00 LAB AMETA 0.00 K/uL Abs [place] 0.07 High LAB AMYEL 0.00 K/uL Abs Myelo 0.07 High LAB APRO 0.00 K/uL Abs Promyelo 0.07 High LAB PLTEST PLATELET ESTIMATE Automated platelet count confirmed by manual slide review. LAB RMORPH Red Cell RBC Morphology indices confirmed by manual smear review. Performed By: #### ALB, C7PMC, LDO, URICB, CBCDFC #### [facility] [address] [place] [phone] [place] [address] [address] [place] [address] 25-[place] VITAMIN D Collected: 02/23/2018 Status: F Source: [facility] TOTAL 6:59 AM [facility] REPOSITORY TYPE CODE TESTS RESULT OUT OF REFERENCE UNITS RANGE LAB D25OH 30.0-100.0 ng/mL Low 25-OH Vitamin 16.9 D Total Result Comment: <10 Deficiency 10-29 Insufficiency 30-100 Optimal Level >100 Possible Toxicity Performed By: #### D25OH #### [facility] [address] [place] [address] [place] [address] CHM7,IP,MG,CA Collected: 02/23/2018 Status: F Source: [facility] 5:26 AM [facility] REPOSITORY TYPE CODE TESTS RESULT OUT OF [...] >60 mL/min/1.73 Low sqM Est GFR,non 44 Nigerian LAB GFRA >60 mL/min/1.73 Low sqM Est GFR, 54 Performed By: #### C7PMC, HFP, LDO, URICB, FIB, PTPTT, CBCDFC #### [facility] [address] [place] [id number] [place] [address] [address] [place] [address] HEPATIC FUNCTION Collected: 02/23/2018 Status: F Source: [facility] 5:26 AM [facility] REPOSITORY TYPE CODE TESTS RESULT OUT OF [...] HFP, LDO, URICB, FIB, PTPTT, CBCDFC #### [facility] [address] [place] [address] [place] [address] LD TOTAL Collected: 02/23/2018 Status: F Source: [facility] 5:26 AM [facility] REPOSITORY TYPE CODE TESTS RESULT OUT OF RANGE REFERENCE UNITS LAB LD 100-190 U/L High LD Total 213 Performed By: #### C7PMC, HFP, LDO, URICB, FIB, PTPTT, CBCDFC #### [facility] [address] [place] [id number] [place] [address] [address] [place] [address] URIC ACID Collected: 02/23/2018 Status: F Source: [facility] 5:26 AM [facility] REPOSITORY TYPE CODE TESTS RESULT OUT OF RANGE REFERENCE UNITS LAB URIC 3.5-7.0 mg/dL Uric Acid 5.1 Performed By: #### C7PMC, HFP, LDO, URICB, FIB, PTPTT, CBCDFC #### [facility] [address] [place] [id number] [place] [address] [address] [place] [address] FIBRINOGEN-CLOTTABLE Collected: Status: F Source: [facility] 02/23/2018 5:26 AM [facility] REPOSITORY TYPE CODE TESTS RESULT OUT OF RANGE REFERENCE UNITS LAB FIB 220-410 mg/dL 290 Fibrinogen-C lottable Performed By: #### C7PMC, HFP, LDO, URICB, FIB, PTPTT, CBCDFC #### [facility] [address] [place] [address] [facility] [address] [place] [address] PT*PTT Collected: 02/23/2018 Status: F Source: [facility] 5:26 AM [facility] REPOSITORY TYPE CODE TESTS RESULT OUT OF RANGE REFERENCE UNITS LAB PT 11.9-14.2 sec PT 13.6 LAB INR 0.9-1.1 INR 1.1 LAB PTT 24.0-34.3 sec High PTT 41.3 Performed By: #### C7PMC, HFP, LDO, URICB, FIB, PTPTT, CBCDFC #### [facility] [address] [place] [address] [facility] [address] [place] [address] CBC,PLATELET,DIFFERENTIAL - CCL Collected: Status: F Source: [facility] 02/23/2018 5:26 AM [facility] REPOSITORY TYPE CODE TESTS RESULT OUT OF [...] LAB AMONO 0.30-0.8 K/uL Low 2 Abs [place] 0.11 LAB AEOS <0.55 K/uL Abs Eos 0.11 LAB ABASO <0.09 K/uL Abs Baso 0.04 LAB ALYOMA K/uL Abs 0.39 Lymphoma LAB PLTEST PLATELET ESTIMATE Automated platelet count confirmed by manual slide review. LAB RMORPH Red Cell RBC Morphology indices confirmed by manual smear review. Performed By: #### C7PMC, HFP, LDO, URICB, FIB, PTPTT, CBCDFC #### [facility] [address] [place] [address] Observed: 02/23/2018 Status: F Source: [facility] TYPE AND CROSS 5:26 AM [facility] REPOSITORY ABO/RH(D): O POSITIVE ANTIBODY SCREEN: NEGATIVE UNIT NUMBER: [id number] BLOOD COMPONENT TYPE: Red Cell,Leukoreduced,[id number] STATUS OF UNIT: Issued, Final TRANSFUSION STATUS: OK TO TRANSFUSE CROSSMATCH RESULT: Electronically Compatible Performed By: #### XM #### [facility] [address] [place] [address] ALBUMIN Collected: 02/22/2018 Status: F Source: [facility] 3:22 AM [facility] REPOSITORY TYPE CODE TESTS RESULT OUT OF REFERENCE UNITS RANGE LAB ALB 3.5-5.0 g/dL Low Albumin 3.4 Performed By: #### ALB, C7PMC, LDO, URICB, CBCDFC #### [facility] [address] [place], [place] [address]e CHEL[place]E, [place] [address] CHM7,IP,MG,CA Collected: 02/22/2018 Status: F Source: [facility] 3:22 AM [facility] REPOSITORY TYPE CODE TESTS RESULT OUT OF [...] >60 mL/min/1.73 Low sqM Est GFR,non 39 Nigerian LAB GFRA >60 mL/min/1.73 Low sqM Est GFR, 48 Performed By: #### ALB, C7PMC, LDO, URICB, CBCDFC #### [facility] [address] [place] [address] [place] [address] LD TOTAL Collected: 02/22/2018 Status: F Source: [facility] 3:22 AM [facility] REPOSITORY TYPE CODE TESTS RESULT OUT OF RANGE REFERENCE UNITS LAB LD 100-190 U/L High LD Total 247 Performed By: #### ALB, C7PMC, LDO, URICB, CBCDFC #### [facility] [address] [place] [address] [place] [address] URIC ACID Collected: 02/22/2018 Status: F Source: [facility] 3:22 AM [facility] REPOSITORY TYPE CODE TESTS RESULT OUT OF RANGE REFERENCE UNITS LAB URIC 3.5-7.0 mg/dL Uric Acid 5.4 Performed By: #### ALB, C7PMC, LDO, URICB, CBCDFC #### [facility] [address] [place] [address] [facility] [address] [place], [place] [address] CBC,PLATELET,DIFFERENTIAL - CCL Collected: Status: F Source: [facility] 02/22/2018 3:22 AM [facility] REPOSITORY TYPE CODE TESTS RESULT OUT OF [...] Lymph 2.45 LAB AMONO 0.30-0.82 K/uL Abs [place] 0.44 LAB AEOS <0.55 K/uL Abs Eos 0.18 LAB ABASO <0.09 K/uL Abs Baso 0.00 LAB AMYEL 0.00 K/uL Abs Myelo 0.09 High LAB ALYOMA K/uL Abs 0.44 Lymphoma LAB OVALO OVALOCYTES Present LAB PLTEST PLATELET Automated ESTIMATE platelet count confirmed by manual slide review. Performed By: #### ALB, C7PMC, LDO, URICB, CBCDFC #### [facility] [address] [place] [address] [place] [phone] CALCIUM Collected: 02/21/2018 Status: F Source: [facility] 4:11 PM [facility] REPOSITORY TYPE CODE TESTS RESULT OUT OF REFERENCE UNITS RANGE LAB CA 8.6-10.5 mg/dL High Calcium 10.6 Performed By: #### CA #### [facility] [address] [place] [address] [address] [place], [place] [address] ALBUMIN Collected: 02/21/2018 Status: F Source: [facility] 4:32 AM [facility] REPOSITORY TYPE CODE TESTS RESULT OUT OF REFERENCE UNITS RANGE LAB ALB 3.5-5.0 g/dL Low Albumin 3.4 Performed By: #### ALB, C7PMC, LDO, URICB, CBCDFC #### [facility] [address] [place] [address] [place] [address] CHM7,IP,MG,CA Collected: 02/21/2018 Status: F Source: [facility] 4:32 AM [facility] REPOSITORY TYPE CODE TESTS RESULT OUT OF [...] >60 mL/min/1.73 Low sqM Est GFR,non 36 Nigerian LAB GFRA >60 mL/min/1.73 Low sqM Est GFR, 44 Performed By: #### ALB, C7PMC, LDO, URICB, CBCDFC #### [facility] [address] [place] [address] [facility] [address] [place], [place] [address] LD TOTAL Collected: 02/21/2018 Status: F Source: [facility] 4:32 AM [facility] REPOSITORY TYPE CODE TESTS RESULT OUT OF RANGE REFERENCE UNITS LAB LD 100-190 U/L High LD Total 286 Performed By: #### ALB, C7PMC, LDO, URICB, CBCDFC #### [facility] [address] [place] [phone] [place] [address] [address] [place] [address] URIC ACID Collected: 02/21/2018 Status: F Source: [facility] 4:32 AM [facility] REPOSITORY TYPE CODE TESTS RESULT OUT OF RANGE REFERENCE UNITS LAB URIC 3.5-7.0 mg/dL Uric Acid 5.2 Performed By: #### ALB, C7PMC, LDO, URICB, CBCDFC #### [facility] [address] [place] [address] [facility] [address] [place] [address] CBC,PLATELET,DIFFERENTIAL - CCL Collected: Status: C Source: [facility] 02/21/2018 4:32 AM [facility] REPOSITORY TYPE CODE TESTS RESULT OUT OF [...] 1.92 LAB AMONO 0.30-0.82 K/uL Low Abs [place] 0.25 Result Comment: CORRECTED ON 02/22 AT 1343: PREVIOUSLY REPORTED 0.10 LAB AEOS <0.55 K/uL Abs Eos 0.11 Result Comment: CORRECTED ON 02/22 AT 1343: PREVIOUSLY REPORTED 0.06 LAB ABASO <0.09 K/uL Abs Baso 0.00 LAB AMETA 0.00 K/uL High Abs [place] 0.11 Result Comment: CORRECTED ON 02/22 AT [...] ALB, C7PMC, LDO, URICB, CBCDFC #### [facility] [address] [place] [id number] [place] [address] [address] [place] [address] CALCIUM Collected: 02/21/2018 Status: F Source: [facility] 2:05 AM [facility] REPOSITORY TYPE CODE TESTS RESULT OUT OF REFERENCE UNITS RANGE LAB CA 8.6-10.5 mg/dL High Calcium 10.9 Performed By: #### CA, CHM6 #### [facility] [address] [place] [address] [place] [address] CHEM 6 Collected: 02/21/2018 Status: F Source: [facility] 2:05 AM [facility] REPOSITORY TYPE CODE TESTS RESULT OUT OF [...] >60 mL/min/1.73 Low sqM Est GFR,non 35 Nigerian LAB GFRA >60 mL/min/1.73 Low sqM Est GFR, 42 Performed By: #### CA, CHM6 #### [facility] [address] [place] [phone] [place] [address] [address] [place] [address] HEMATOCRIT Collected: 02/20/2018 Status: F Source: [facility] 6:32 PM [facility] REPOSITORY TYPE CODE TESTS RESULT OUT OF REFERENCE UNITS RANGE LAB HCT 40.1-51.0 % Low Hematocrit 26.9 Performed By: #### HCT, HGB, CHM6, CA, URICB, IPB, LDO #### [facility] [address] [place] [address] [facility] [address] [place] [address] 5[address] HEMOGLOBIN Collected: 02/20/2018 Status: F Source: [facility] 6:32 PM [facility] REPOSITORY TYPE CODE TESTS RESULT OUT OF REFERENCE UNITS RANGE LAB HGB 13.7-17.5 g/dL Low Hemoglobin 9.2 Performed By: #### HCT, HGB, CHM6, CA, URICB, IPB, LDO #### [facility] [address] [place] [phone] [place] [address] [address] [place] [address] 0[address]96 CHEM 6 Collected: 02/20/2018 Status: F Source: [facility] 6:32 PM [facility] REPOSITORY TYPE CODE TESTS RESULT OUT OF [...] >60 mL/min/1.73 Low sqM Est GFR,non 32 Nigerian LAB GFRA >60 mL/min/1.73 Low sqM Est GFR, 39 Performed By: #### HCT, HGB, CHM6, CA, URICB, IPB, LDO #### [facility] [address] [place], [place] [phone] [facility] [address] [place] [address] CALCIUM Collected: 02/20/2018 Status: F Source: [facility] 6:32 PM [facility] REPOSITORY TYPE CODE TESTS RESULT OUT OF REFERENCE UNITS RANGE LAB CA 8.6-10.5 mg/dL High alert Calcium 12.2 Result Comment: Critical CALC result called to and read back by: MORENA HERNANDEZ at: 02/20/2018 19:41:25 by : 1987 Performed By: #### HCT, HGB, CHM6, CA, URICB, IPB, LDO #### [facility] [address] [place] [phone] [place] [address] [address] URIC ACID Collected: 02/20/2018 Status: F Source: [facility] 6:32 PM [facility] REPOSITORY TYPE CODE TESTS RESULT OUT OF RANGE REFERENCE UNITS LAB URIC 3.5-7.0 mg/dL Uric Acid 4.8 Performed By: #### HCT, HGB, CHM6, CA, URICB, IPB, LDO #### [facility] [address] [place] [address] [address] [place] [address] INORGANIC PHOSPHATE Collected: 02/20/2018 Status: F Source: [facility] 6:32 PM [facility] REPOSITORY TYPE CODE TESTS RESULT OUT OF REFERENCE UNITS RANGE LAB IP 2.2-4.6 mg/dL Inorg Phosphate 4.2 Performed By: #### HCT, HGB, CHM6, CA, URICB, IPB, LDO #### [facility] [address] [place] [address] LD TOTAL Collected: 02/20/2018 Status: F Source: [facility] 6:32 PM [facility] REPOSITORY TYPE CODE TESTS RESULT OUT OF RANGE REFERENCE UNITS LAB LD 100-190 U/L High LD Total 378 Performed By: #### HCT, HGB, CHM6, CA, URICB, IPB, LDO #### [facility] [address] [place] [address] Observed: 02/20/2018 Status: F Source: [facility] TYPE AND CROSS 3:20 AM [facility] REPOSITORY ABO/RH(D): O POSITIVE ANTIBODY SCREEN: NEGATIVE UNIT NUMBER: [id number] BLOOD COMPONENT TYPE: Red Cell,Leukoreduced,[id number] STATUS OF UNIT: Issued, Final TRANSFUSION STATUS: OK TO TRANSFUSE CROSSMATCH RESULT: Electronically Compatible Performed By: #### XM #### [facility] [address] [place] [address] FIBRINOGEN-CLOTTABLE Collected: Status: F Source: [facility] 02/20/2018 3:11 AM [facility] REPOSITORY TYPE CODE TESTS RESULT OUT OF RANGE REFERENCE UNITS LAB FIB 220-410 mg/dL 335 Fibrinogen-C lottable Performed By: #### FIB, C7PMC, HFP, LDO, URICB, PTPTT, CBCDFC #### [facility] [address] [place] [phone] [place] [address] [address] [place] [address] CHM7,IP,MG,CA Collected: 02/20/2018 Status: F Source: [facility] 3:11 AM [facility] REPOSITORY TYPE CODE TESTS RESULT OUT OF [...] >60 mL/min/1.73 Low sqM Est GFR,non 35 Nigerian LAB GFRA >60 mL/min/1.73 Low sqM Est GFR, 43 Performed By: #### FIB, C7PMC, HFP, LDO, URICB, PTPTT, CBCDFC #### [facility] [address] [place] [address] [facility] [address] [place] [address] HEPATIC FUNCTION Collected: 02/20/2018 Status: F Source: [facility] 3:11 AM [facility] REPOSITORY TYPE CODE TESTS RESULT OUT OF [...] C7PMC, HFP, LDO, URICB, PTPTT, CBCDFC #### [facility] [address] [place] [address] [address] [place] [address] LD TOTAL Collected: 02/20/2018 Status: F Source: [facility] 3:11 AM [facility] REPOSITORY TYPE CODE TESTS RESULT OUT OF RANGE REFERENCE UNITS LAB LD 100-190 U/L High LD Total 275 Performed By: #### FIB, C7PMC, HFP, LDO, URICB, PTPTT, CBCDFC #### [facility] [address] [place] [address] [address] URIC ACID Collected: 02/20/2018 Status: F Source: [facility] 3:11 AM [facility] REPOSITORY TYPE CODE TESTS RESULT OUT OF RANGE REFERENCE UNITS LAB URIC 3.5-7.0 mg/dL Uric Acid 5.1 Performed By: #### FIB, C7PMC, HFP, LDO, URICB, PTPTT, CBCDFC #### [facility] [address] [place] [address] [address] PT*PTT Collected: 02/20/2018 Status: F Source: [facility] 3:11 AM [facility] REPOSITORY TYPE CODE TESTS RESULT OUT OF RANGE REFERENCE UNITS LAB PT 11.9-14.2 sec PT 13.8 LAB INR 0.9-1.1 INR 1.1 LAB PTT 24.0-34.3 sec High PTT 40.4 Performed By: #### FIB, C7PMC, HFP, LDO, URICB, PTPTT, CBCDFC #### [facility] [address] [place] [address] [facility] [address] [place], [place] [address] CBC,PLATELET,DIFFERENTIAL - CCL Collected: Status: F Source: [facility] 02/20/2018 3:11 AM [facility] REPOSITORY TYPE CODE TESTS RESULT OUT OF [...] LAB AMONO 0.30-0.8 K/uL Low 2 Abs [place] 0.10 LAB AEOS <0.55 K/uL Abs Eos 0.02 LAB ABASO <0.09 K/uL Abs Baso 0.02 LAB AMETA 0.00 K/uL Abs [place] 0.08 High LAB AMYEL 0.00 K/uL Abs Myelo 0.05 High LAB ALYOMA K/uL Abs Lymphoma 0.35 LAB PLTEST PLATELET ESTIMATE Automated platelet count confirmed by manual slide review. Performed By: #### FIB, C7PMC, HFP, LDO, URICB, PTPTT, CBCDFC #### [facility] [address] [place] [address] [facility] [address] [place], [place] [address] CT CHEST WITH Observed: 02/19/2018 Status: F Source: [facility] 8:11 AM [facility] REPOSITORY EXAM: CT CHEST WITH CONTRAST, 02/18/2018 [...] numbers are related to this dose report {[id number]}: [id number] The dose indicators for CT are the [...] structures. MIN Collected: 02/19/2018 Status: F Source: [facility] 4:13 AM [facility] REPOSITORY TYPE CODE TESTS RESULT OUT OF REFERENCE UNITS RANGE LAB ALB 3.5-5.0 g/dL Albumin 3.7 Performed By: #### ALB, C7PMC, LDO, URICB, CBCDFC #### [facility] [address] [place] [address] [facility] [address] [place] [address] CHM7,IP,MG,CA Collected: 02/19/2018 Status: F Source: [facility] 4:13 AM [facility] REPOSITORY TYPE CODE TESTS RESULT OUT OF [...] >60 mL/min/1.73 Low sqM Est GFR,non 43 Nigerian LAB GFRA >60 mL/min/1.73 Low sqM Est GFR, 52 Performed By: #### ALB, C7PMC, LDO, URICB, CBCDFC #### [facility] [address] [place] [phone] [place] [address] [address] [place] [address] LD TOTAL Collected: 02/19/2018 Status: F Source: [facility] 4:13 [facility] REPOSITORY TYPE CODE TESTS RESULT OUT OF RANGE REFERENCE UNITS LAB LD 100-190 U/L High LD Total 269 Performed By: #### ALB, C7PMC, LDO, URICB, CBCDFC #### [facility] [address] [place] [address] [facility] [address] [place] [address] URIC ACID Collected: 02/19/2018 Status: F Source: [facility] 4:13 AM [facility] REPOSITORY TYPE CODE TESTS RESULT OUT OF RANGE REFERENCE UNITS LAB URIC 3.5-7.0 mg/dL Uric Acid 5.2 Performed By: #### ALB, C7PMC, LDO, URICB, CBCDFC #### [facility] [address] [place] [address] [facility] [address] [place], [place] [address] CBC,PLATELET,DIFFERENTIAL - CCL Collected: Status: F Source: [facility] 02/19/2018 4:13 AM [facility] REPOSITORY TYPE CODE TESTS RESULT OUT OF [...] LAB AMONO 0.30-0.8 K/uL Low 2 Abs [place] 0.18 LAB AEOS <0.55 K/uL Abs Eos 0.15 LAB ABASO <0.09 K/uL Abs Baso 0.00 LAB AMETA 0.00 K/uL Abs [place] 0.06 High LAB AMYEL 0.00 K/uL Abs Myelo 0.03 High LAB ALYOMA K/uL Abs Lymphoma 0.42 LAB PLTEST PLATELET ESTIMATE Automated platelet count confirmed by manual slide review. Performed By: #### ALB, C7PMC, LDO, URICB, CBCDFC #### [facility] [address] [place] [address] [facility] [address] [place] [address] [address] ABDOMEN/PELVIS WITH Observed: 02/18/2018 Status: F Source: [facility] 8:00 PM [facility] REPOSITORY EXAM: CT ABDOMEN/PELVIS WITH CONTRAST, 02/18/2018 [...] numbers are related to this dose report {[id number]}: [id number] The dose indicators for CT are the [...] SINUSES WITH Observed: 02/18/2018 Status: F Source: [facility] 5:50 PM [facility] REPOSITORY EXAM: CT SINUSES WITH CONTRAST, 02/18/2018 [...] PCR - Collected: 02/18/2018 Status: F Source: [facility] 7:33 AM [facility] REPOSITORY TYPE CODE TESTS RESULT OUT OF [...] (log) <1.00 Performed By: #### HBDNAB #### [address] [address] CBC,PLATELET,DIFFERENTIAL - CCL Collected: Status: X Source: [facility] 02/18/2018 7:02 AM [facility] REPOSITORY TYPE CODE TESTS RESULT OUT OF REFERENCE UNITS RANGE LAB CBCDFC This CBC,PLATELET result has ,DIFFERENTIA been L - CCL cancelled. Performed By: #### CBCDFC #### [facility] (DEFAULT) [address] [place] [address] HEMOGRAM (CBC AND Collected: 02/18/2018 Status: F Source: [facility] PLATELET) 4:51 AM [facility] REPOSITORY TYPE CODE TESTS RESULT OUT OF [...] HEMOGC, C7PMC, LDO, URICB, IDIFFC #### [facility] [address] [place] [address] [address] [place] [address] CHM7,IP,MG,CA Collected: 02/18/2018 Status: F Source: [facility] 4:51 AM [facility] REPOSITORY TYPE CODE TESTS RESULT OUT OF [...] >60 mL/min/1.73 Low sqM Est GFR,non 49 [facility] GFRA >60 mL/min/1.73 Low sqM Est GFR, 59 Performed By: #### HEMOGC, C7PMC, LDO, URICB, IDIFFC #### [facility] [address] [place] [id number] [facility] [address] [place] [id number] LD TOTAL Collected: 02/18/2018 Status: F Source: [facility] 4:51 AM [facility] REPOSITORY TYPE CODE TESTS RESULT OUT OF RANGE REFERENCE UNITS LAB LD 100-190 U/L High LD Total 311 Performed By: #### HEMOGC, C7PMC, LDO, URICB, IDIFFC #### [facility] [address] [place] [id number] [place] [address] [place] [id number] URIC ACID Collected: 02/18/2018 Status: F Source: [facility] 4:51 AM [facility] REPOSITORY TYPE CODE TESTS RESULT OUT OF RANGE REFERENCE UNITS LAB URIC 3.5-7.0 mg/dL Uric Acid 5.3 Performed By: #### HEMOGC, C7PMC, LDO, URICB, IDIFFC #### [facility] [address] [place] [address] [facility] [address] [place] [address] DIFFERENTIAL Collected: 02/18/2018 Status: F Source: [facility] 4:51 AM [facility] REPOSITORY TYPE CODE TESTS RESULT OUT OF [...] Lymph 1.63 LAB AMONO 0.30-0.82 K/uL Abs [place] 0.46 LAB AEOS <0.55 K/uL Abs Eos 0.06 LAB ABASO <0.09 K/uL Abs Baso 0.00 LAB AMYEL 0.00 K/uL Abs Myelo 0.03 High LAB ALYOMA K/uL Abs 0.12 Lymphoma LAB PLTEST PLATELET Automated ESTIMATE platelet count confirmed by manual slide review. Performed By: #### HEMOGC, C7PMC, LDO, URICB, IDIFFC #### [facility] [address] [place] [address] [place] [address] CYTOGENETICS Observed: 02/17/2018 Status: F Source: [facility] 4:51 AM [facility] REPOSITORY Cytogenetics Report Patient Name: LEXI DICKINSON [facility]. Rec #: [id number] Submitting Physician: SUJIT EDWARD Clinical History Mantle [...] were also received from this patient (see [id number] and [id number]); therefore, analyses were performed on the bone biopsy and the other peripheral blood sample, and not the current sample. Batsheva Edwards MD, PhD Performed By: #### CYTOG #### [facility] [address] [place] [address] CHM7,IP,MG,CA Collected: 02/17/2018 Status: F Source: [facility] 2:24 AM [facility] REPOSITORY TYPE CODE TESTS RESULT OUT OF [...] >60 mL/min/1.73 Low sqM Est GFR,non 55 Nigerian LAB GFRA >60 mL/min/1.73 sqM Est GFR, >60 Performed By: #### C7PMC, LDO, URICB, CBCDFC, IAPTHD #### [facility] [address] [address] LD TOTAL Collected: 02/17/2018 Status: F Source: [facility] 2:24 AM [facility] REPOSITORY TYPE CODE TESTS RESULT OUT OF RANGE REFERENCE UNITS LAB LD 100-190 U/L High LD Total 319 Performed By: #### C7PMC, LDO, URICB, CBCDFC, IAPTHD #### [facility] [address] [address] URIC ACID Collected: 02/17/2018 Status: F Source: [facility] 2:24 AM [facility] REPOSITORY TYPE CODE TESTS RESULT OUT OF RANGE REFERENCE UNITS LAB URIC 3.5-7.0 mg/dL Uric Acid 5.3 Performed By: #### C7PMC, LDO, URICB, CBCDFC, IAPTHD #### [facility] [address] 410 [place] [address] CBC,PLATELET,DIFFERENTIAL - CCL Collected: Status: F Source: [facility] 02/17/2018 2:24 AM [facility] REPOSITORY TYPE CODE TESTS RESULT OUT OF [...] 1.27 Low LAB AMONO 0.30-0.82 K/uL Abs [place] 0.23 Low LAB AEOS <0.55 K/uL Abs Eos 0.09 LAB ABASO <0.09 K/uL Abs Baso 0.09 High LAB AMETA 0.00 K/uL Abs [place] 0.14 High LAB AMYEL 0.00 K/uL Abs [...] C7PMC, LDO, URICB, CBCDFC, IAPTHD #### [facility] [address] [place] [id number] [place] [address] [place] [address] PATHOLOGIST DIFFERENTIAL Collected: 02/17/2018 Status: F Source: [facility] 2:24 AM [facility] REPOSITORY TYPE CODE TESTS RESULT OUT OF [...] #### C7PMC, LDO, URICB, CBCDFC, IAPTHD #### [facility] [address] 410 [place] [address] Observed: 02/17/2018 Status: F Source: [facility] TYPE AND CROSS 2:24 AM [facility] REPOSITORY ABO/RH(D): O POSITIVE ANTIBODY SCREEN: NEGATIVE Performed By: #### XM #### [facility] [address] [place] [address] CHM7,IP,MG,CA Collected: 02/16/2018 Status: F Source: [facility] 2:51 AM [facility] REPOSITORY TYPE CODE TESTS RESULT OUT OF [...] >60 mL/min/1.73 Low sqM Est GFR,non 45 Nigerian LAB GFRA >60 mL/min/1.73 Low sqM Est GFR, 55 Performed By: #### C7PMC, HFP, LDO, URICB, FIB, PTPTT, CBCDFC #### [facility] [address] [place] [address] [place] [address] HEPATIC FUNCTION Collected: 02/16/2018 Status: F Source: [facility] PANEL 2:51 AM [facility] REPOSITORY TYPE CODE TESTS RESULT OUT OF [...] LDO, URICB, FIB, PTPTT, CBCDFC #### [facility] [address] [place] [address] [place] [address] LD TOTAL Collected: 02/16/2018 Status: F Source: [facility] 2:51 AM [facility] REPOSITORY TYPE CODE TESTS RESULT OUT OF RANGE REFERENCE UNITS LAB LD 100-190 U/L High LD Total 299 Performed By: #### C7PMC, HFP, LDO, URICB, FIB, PTPTT, CBCDFC #### [facility] [address] [place] [id number] [place] [address] [address] [place] [address] URIC ACID Collected: 02/16/2018 Status: F Source: [facility] 2:51 AM [facility] REPOSITORY TYPE CODE TESTS RESULT OUT OF RANGE REFERENCE UNITS LAB URIC 3.5-7.0 mg/dL Uric Acid 5.6 Performed By: #### C7PMC, HFP, LDO, URICB, FIB, PTPTT, CBCDFC #### [facility] [address] [place] [address] [facility] [address] [place] [address] FIBRINOGEN-CLOTTABLE Collected: Status: F Source: [facility] 02/16/2018 2:51 AM [facility] REPOSITORY TYPE CODE TESTS RESULT OUT OF RANGE REFERENCE UNITS LAB FIB 220-410 mg/dL 270 Fibrinogen-C lottable Performed By: #### C7PMC, HFP, LDO, URICB, FIB, PTPTT, CBCDFC #### [facility] [address] [place] [id number] [place] [address] [address] [place] [address] PT*PTT Collected: 02/16/2018 Status: F Source: [facility] 2:51 AM [facility] REPOSITORY TYPE CODE TESTS RESULT OUT OF RANGE REFERENCE UNITS LAB PT 11.9-14.2 sec PT 14.1 LAB INR 0.9-1.1 INR 1.1 LAB PTT 24.0-34.3 sec PTT 29.1 Performed By: #### C7PMC, HFP, LDO, URICB, FIB, PTPTT, CBCDFC #### [facility] [address] [place] [id number] [place] [address] [address] [place] [address] CBC,PLATELET,DIFFERENTIAL - CCL Collected: Status: F Source: [facility] 02/16/2018 2:51 AM [facility] REPOSITORY TYPE CODE TESTS RESULT OUT OF [...] Lymph 1.39 LAB AMONO 0.30-0.82 K/uL Abs [place] 0.28 Low LAB AEOS <0.55 K/uL Abs Eos 0.10 LAB ABASO <0.09 K/uL Abs Baso 0.03 LAB AMETA 0.00 K/uL Abs [place] 0.05 High LAB AMYEL 0.00 K/uL Abs Myelo 0.10 High LAB APRO 0.00 K/uL Abs Promyelo 0.05 High LAB PLTEST PLATELET ESTIMATE Automated platelet count confirmed by manual slide review. LAB RMORPH Red Cell RBC Morphology indices confirmed by manual smear review. Performed By: #### C7PMC, HFP, LDO, URICB, FIB, PTPTT, CBCDFC #### [facility] [place] [address] [place] [address] [place] [address] ECHOCARDIOGRAM Observed: 02/15/2018 Status: F Source: [facility] 4:50 PM [facility] REPOSITORY Normal left ventricular size and systolic function with an EF of 62% on biplane imaging. Normal RV size and function. Mild biatrial enlargement. Moderate thickening of the aortic valve without aortic stenosis. No hemodynamically significant valve disease. Estimated right ventricular systolic pressure is 30 mmHg OCCULT BLOOD - Collected: 02/15/2018 Status: F Source: [facility] FECAL 2:07 PM [facility] REPOSITORY TYPE CODE TESTS RESULT OUT OF REFERENCE UNITS RANGE LAB OCBDF Negative Occult Negative Blood - Fecal Performed By: #### OCBDF #### [facility] [id number] [place] [address] [address] [place] [address] BM IMMUNOPHENOTYPING Collected: Status: X Source: [facility] 02/15/2018 7:36 AM [facility] REPOSITORY TYPE CODE TESTS RESULT OUT OF REFERENCE UNITS RANGE LAB BMIPP BM Immunophenotyping This result has been cancelled. Performed By: #### BMIPP, P3J #### [facility] (DEFAULT) [address] [address] PACKAGE 3 Collected: 02/15/2018 Status: X Source: [facility] 7:36 AM [facility] REPOSITORY TYPE CODE TESTS RESULT OUT OF REFERENCE UNITS RANGE LAB P3J PACKAGE 3 This result has been cancelled. Performed By: #### BMIPP, P3J #### [facility] (DEFAULT) [address] [address] AMLMOL (MY-NGS,CEBPA,FLT3),BM Collected: Status: X Source: [facility] 02/15/2018 7:36 AM [facility] REPOSITORY TYPE CODE TESTS RESULT OUT OF REFERENCE UNITS RANGE LAB AMLMOM AMLMOL This (MY-NGS,CEBP result has A,FLT3),BM been cancelled. Performed By: #### AMLMOM #### [facility] (DEFAULT) [address] [address] CHM7,IP,MG,CA Collected: 02/15/2018 Status: F Source: [facility] 5:06 AM [facility] REPOSITORY TYPE CODE TESTS RESULT OUT OF [...] >60 mL/min/1.73 Low sqM Est GFR,non 48 Nigerian LAB GFRA >60 mL/min/1.73 Low sqM Est GFR, 58 Performed By: #### C7PMC, LDO, URICB, CBCDFC, HSVG12, LMPNGB #### [facility] [address] [place] [address] [place] [address] LD TOTAL Collected: 02/15/2018 Status: F Source: [facility] 5:06 AM [facility] REPOSITORY TYPE CODE TESTS RESULT OUT OF RANGE REFERENCE UNITS LAB LD 100-190 U/L High LD Total 319 Performed By: #### C7PMC, LDO, URICB, CBCDFC, HSVG12, LMPNGB #### [facility] [address] [place] [address] [place] [address] URIC ACID Collected: 02/15/2018 Status: F Source: [facility] 5:06 AM [facility] REPOSITORY TYPE CODE TESTS RESULT OUT OF RANGE REFERENCE UNITS LAB URIC 3.5-7.0 mg/dL Uric Acid 5.9 Performed By: #### C7PMC, LDO, URICB, CBCDFC, HSVG12, LMPNGB #### [facility] [address] [place] [address] [place] [address] CBC,PLATELET,DIFFERENTIAL - CCL Collected: Status: F Source: [facility] 02/15/2018 5:06 AM [facility] REPOSITORY TYPE CODE TESTS RESULT OUT OF [...] 1.25 Low LAB AMONO 0.30-0.82 K/uL Abs [place] 0.30 LAB AEOS <0.55 K/uL Abs Eos 0.07 LAB ABASO <0.09 K/uL Abs Baso 0.00 LAB AMETA 0.00 K/uL Abs [place] 0.11 High LAB AMYEL 0.00 K/uL Abs Myelo 0.02 High LAB OVALO OVALOCYTES Present LAB POLYCH POLYCHROMASIA 1+ LAB PLTEST PLATELET Automated ESTIMATE platelet count confirmed by manual slide review. Performed By: #### C7PMC, LDO, URICB, CBCDFC, HSVG12, LMPNGB #### [facility] [address] [place] [address] HSV I&II IGG ANTIBODY Collected: 02/15/2018 Status: F Source: [facility] 5:06 [facility] REPOSITORY TYPE CODE TESTS RESULT OUT OF RANGE REFERENCE UNITS LAB HSVG1 Negative INDETERMINATE Abnormal HSV 1 IgG Antibody Result Comment: RECOMMEND THAT TEST BE REPEATED LAB HSVG2 Negative HSV 2 Negative IgG Antibody Performed By: #### C7PMC, LDO, URICB, CBCDFC, HSVG12, LMPNGB #### [facility] [address] [place] [address] LYMPHOID NEOPLASM MUTATION Observed: 02/15/2018 Status: F Source: [facility] PANEL WITH BTK/PLCG2,BLOOD 5:06 AM [facility] REPOSITORY Peripheral blood No pathogenic mutation detected [...] C7PMC, LDO, URICB, CBCDFC, HSVG12, LMPNGB #### [place] [address] SURGICAL PATHOLOGY Observed: 02/15/2018 Status: F Source: [facility] 5:06 AM [facility] REPOSITORY Molecular Pathology Report Patient Name: LEXI DICKINSON Med. Rec #: [id number] Submitting Physician: DEEPA BYNUM --- Clinical History --- LMPNGS ---Final Pathologic Diagnosis--- LYMPHOID NEOPLASM MUTATION PANEL Patient Name: LEXI DICKINSON, Order ID: [id number] Specimen Tested: peripheral blood Indication: B-cell lymphoproliferative disorder RESULTS AND INTERPRETATION No mutations detected. Among B-cell lymphoprolfierative disorder-associated changes, there were no mutations in the covered areas of BIRC3, MYD88, NOTCH1, POT1, SF3B1 or in TP53. SEQUENCE ALTERATIONS DETECTED None REGIONS WITH LOW COVERAGE The following amplicons demonstrated low coverage (please see test details for more information): PTPR30, PTPR44, DNMT09, WHN880, FBXW24, CARD21, CARD38, VTF678, ZMC878, XHQ372, PTEN02, BLNK22, BIRC14, PLCG09, QDC270, GHQ621, ANB481, BCOR23, BCRL34 The base positions and codons corresponding to these amplicons can be provided upon request. TEST CHARACTERISTICS METHODOLOGY: Genomic DNA was isolated following immunoaffinity purification of CD19+ B cells from peripheral blood (using RoboSepS) and profiled using a PCR-based Ampliseq library using the [employer] and [employer] sequencing platforms. Analysis of the neoplasm-associated variants in the 50 genes below utilized hg19, [employer] Platform Software and the [employer] platform, with the pathologist final interpretation provided [...] the [facility] at [address] [place] [address] under the medical direction of James Israel [...] report was produced using software licensed by [employer]. [employer] software is designed to be used in clinical applications solely as a tool to enhance medical utility and improve operational efficiency. The use of [employer] software is not a substitute for medical judgment and [employer] in no way holds itself out as having or providing independent medical judgment or diagnostic services. [employer] is not liable with respect to any treatment or diagnosis made in connection with this report. [email or web address]:02/20/2018 Electronically Signed By Jessica Gan MD, PhD 02/20/2018 17:19:39 Professional Interpretation performed at location: ---MICROSCOPIC:--- NA ---SPECIMEN(S) RECEIVED:--- MT A: Peripheral Blood - Polaris ---GROSS DESCRIPTION:--- Purple top peripheral blood sample received at [facility] [employer] [facility] labeled with patient identifiers and draw date. Gross description by: Not Entered Performed By: #### SURGP #### [facility] [address] [place] [address] [facility] [address] [place], [place] [address] SURGICAL PATHOLOGY Observed: 02/14/2018 Status: F Source: [facility] 3:47 PM [facility] REPOSITORY Surgical Pathology Report Patient Name: LEXI DICKINSON Med. Rec #: [id number] Submitting Physician: NOLAN AYON --- Clinical History --- CLL. ADDENDA: Addendum added: 03/24/2018 ---Final Pathologic Diagnosis--- A. 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 All tests reported here, except those addressing HER2 overexpression as a predictive marker, have not been cleared or approved by the FDA. The laboratory is regulated under CLIA as qualified to perform high-complexity testing. The tests are used for clinical purposes. They should not be regarded as investigational or for research. [email or web address]:02/17/2018 Electronically Signed By James Israel MD 02/17/2018 12:07:52 Professional Interpretation performed at location: [facility] [place] [address] ---Addendum Report--- Addendum Date Ordered: 03/24/2018 Status: Signed Out Date Complete: 03/24/2018 Date Reported: 03/24/2018 Text: The CD68 was also performed and lymphoma cells are negative for CD68 but reactive background monocytes.The final diagnosis is not changed. All controls show appropriate reactivity. All immunohistochemistry, in situ hybridization, and histochemical tests were developed by and are performed at the [facility], [address] [place] [address]. All tests reported here, except those addressing [...] Performed and resulted in a separate report ([id number]). The above report complies, in slightly modified form, with the guidelines of the College of [place] Pathologists for the reporting of cancer specimens. [...] ready after decalcification. Lab Use Only: JobID [id number] Gross description by: Elly Portillo Performed By: #### SURGP #### [facility] [address] [place] [address] [address] [place] [address] CYTOGENETICS Observed: 02/14/2018 Status: F Source: [facility] 2:03 PM [facility] REPOSITORY Cytogenetics Report Patient Name: LEXI DICKINSON [facility] Rec #: [id number] Submitting Physician: NOLAN AYON Clinical History Mantle [...] sample. Preliminary results were given to Sr. [place]um [place] on 02/17/18 at 10:30 a.m. by Isha Felton and to Dr. Edward at 5:07 p.m. by Evelyn Chambers. Reference: Denisse et al. Cancer Sci 96:77-82, 2004. Luis Carlos WATSON. t(11;14)(q13;q32). Cynth[place] Amalia Cytogenet Oncol Haematol. December 1997. URL : [email or web address] Due to the limitations of this analysis, these results do not rule out the presence of subtle chromosomal abnormalities or additional abnormalities that could exist in a low proportion of cells. [email or web address]:03/02/2018 Electronically Signed By Batsheva Edwards MD, PhD [...] biopsy was also received from this patient ([id number]); therefore, analysis will be performed on the bone biopsy not the peripheral blood. Batsheva Edwards MD, PhD Addendum Date Ordered: 02/21/2018 Status: Pending Date Reported: Performed By: #### CYTOG #### [facility] [address] [place] [address] CYTOGENETICS Observed: 02/14/2018 Status: F Source: [facility] 2:03 PM [facility] REPOSITORY Cytogenetics Report Patient Name: LEXI DICKINSON [facility] Rec #: [id number] Submitting Physician: NOLAN AYON Clinical History Mantle [...] Sci 96:77-82, 2004. Luis Carlos WATSON. t(11;14)(q13;q32). Cynthiana Amalia Cytogenet Oncol Haematol. December 1997. URL : [email or web address] Due to the limitations of this analysis, these results do not rule out the presence of subtle chromosomal abnormalities or additional abnormalities that could exist in a low proportion of cells. [email or web address]:03/02/2018 Electronically Signed By Batsheva Edwards MD, PhD [...] biopsy was also received from this patient ([id number]); therefore, analysis will be performed on the bone biopsy not the peripheral blood. Batsheva Edwards MD, PhD Addendum Date Ordered: 02/21/2018 Status: Pending Date Reported: Performed By: #### CYTOG #### [facility] [address] [place] [id number] [place] [address] [place] [address] PACKAGE 3 Collected: 02/14/2018 Status: F Source: [facility] 1:30 PM [facility] REPOSITORY TYPE CODE TESTS RESULT OUT OF REFERENCE UNITS RANGE LAB BMBXJ BM Biopsy Doctor to - CHRI interpret test LAB BMFEJ BM Iron Doctor to Stain interpret test Performed By: #### P3J #### [facility] [address] [place] [address] XR CHEST PA AND Observed: 02/14/2018 Status: F Source: [facility] LATERAL 11:48 AM [facility] REPOSITORY EXAM: XR CHEST PA AND LATERAL, [...] URINE - Collected: 02/14/2018 Status: F Source: [facility] RANDOM 7:44 AM [facility] REPOSITORY TYPE CODE TESTS RESULT OUT OF REFERENCE UNITS RANGE LAB UOSM 300-900 mOsm/kg Urine Osmolality 676 Performed By: #### UOSMR, UCRER, ULYTR, UREAR #### [facility] [address] [place] [address] [place] [address] CREATININE, URINE - Collected: 02/14/2018 Status: F Source: [facility] RANDOM 7:44 AM [facility] REPOSITORY TYPE CODE TESTS RESULT OUT OF RANGE REFERENCE UNITS LAB CREU1 mg/dL 108.00 Creatinine, urine mg/dL Result Comment: The reference range has not been established for random urine specimens. The test result should be integrated into the clinical context for interpretation. Performed By: #### UOSMR, UCRER, ULYTR, UREAR #### [facility] [address] [place] [address] [place] [address] LYTES (NA,K,CL), URINE Collected: 02/14/2018 Status: F Source: [facility] - RANDOM 7:44 AM [facility] REPOSITORY TYPE CODE TESTS RESULT OUT OF [...] #### UOSMR, UCRER, ULYTR, UREAR #### U [facility] [address] [place] [address] [place] [address] URINE UREA NITROGEN - Collected: 02/14/2018 Status: F Source: [facility] RANDOM 7:44 AM [facility] REPOSITORY TYPE CODE TESTS RESULT OUT OF REFERENCE UNITS RANGE LAB UREA1 mg/dL Urine Urea 707 Nitrogen Performed By: #### UOSMR, UCRER, ULYTR, UREAR #### [facility] [address] [place] [address] [place] [address] URINALYSIS Collected: 02/14/2018 Status: F Source: [facility] 7:44 AM [facility] REPOSITORY TYPE CODE TESTS RESULT OUT OF RANGE REFERENCE UNITS LAB [place] ATTACHER Clear Clear Appearance Urine LAB SPGR 1.001-1.035 Specific >=1.030 [place] urine LAB UGL Negative mg/dL Glucose Negative [...] Oxalate Crystals Performed By: #### URIN #### [place] [address] Observed: 02/14/2018 Status: F Source: [facility] TYPE AND CROSS 5:52 AM [facility] REPOSITORY ABO/RH(D): O POSITIVE ANTIBODY SCREEN: NEGATIVE UNIT NUMBER: [id number] BLOOD COMPONENT TYPE: Red Cell,Leukoreduced,[id number] STATUS OF UNIT: Issued, Final TRANSFUSION STATUS: OK TO TRANSFUSE CROSSMATCH RESULT: Electronically Compatible Performed By: #### XM #### [place] [address] FIBRINOGEN-CLOTTABLE Collected: Status: F Source: [facility] 02/14/2018 5:27 AM [facility] REPOSITORY TYPE CODE TESTS RESULT OUT OF RANGE REFERENCE UNITS LAB FIB 220-410 mg/dL 270 Fibrinogen-C lottable Performed By: #### FIB, PTPTT, CA, CHM6, HFP, IPB, LDO, MGO, URICB, CBCDFC, CMVG, HEP3B, HSVG12, AMLMOB #### [facility] [address] [place] [address] PT*PTT Collected: 02/14/2018 Status: F Source: [facility] 5:27 AM [facility] REPOSITORY TYPE CODE TESTS RESULT OUT OF RANGE REFERENCE UNITS LAB PT 11.9-14.2 sec PT 13.9 LAB INR 0.9-1.1 INR 1.1 LAB PTT 24.0-34.3 sec PTT 28.2 Performed By: #### FIB, PTPTT, CA, CHM6, HFP, IPB, LDO, MGO, URICB, CBCDFC, CMVG, HEP3B, HSVG12, AMLMOB #### [facility] [address] [place] [address] [place] [address] CALCIUM Collected: 02/14/2018 Status: F Source: [facility] 5:27 AM [facility] REPOSITORY TYPE CODE TESTS RESULT OUT OF REFERENCE UNITS RANGE LAB CA 8.6-10.5 mg/dL Calcium 9.9 Performed By: #### FIB, PTPTT, CA, CHM6, HFP, IPB, LDO, MGO, URICB, CBCDFC, CMVG, HEP3B, HSVG12, AMLMOB #### [facility] [address] [place] [address] [address] [place] [address] CHEM 6 Collected: 02/14/2018 Status: F Source: [facility] 5:27 AM [facility] REPOSITORY TYPE CODE TESTS RESULT OUT OF [...] >60 mL/min/1.73 Low sqM Est GFR,non 48 Nigerian LAB GFRA >60 mL/min/1.73 Low sqM Est GFR, 58 Performed By: #### FIB, PTPTT, CA, CHM6, HFP, IPB, LDO, MGO, URICB, CBCDFC, CMVG, HEP3B, HSVG12, AMLMOB #### [facility] [address] [place] [id number] [place] [address] [address] [place] [address] HEPATIC FUNCTION Collected: 02/14/2018 Status: F Source: [facility] H[facility] 5:27 AM [facility] REPOSITORY TYPE CODE TESTS RESULT OUT OF [...] URICB, CBCDFC, CMVG, HEP3B, HSVG12, AMLMOB #### [facility] [address] [place] [address] [address] INORGANIC PHOSPHATE Collected: 02/14/2018 Status: F Source: [facility] 5:27 AM [facility] REPOSITORY TYPE CODE TESTS RESULT OUT OF REFERENCE UNITS RANGE LAB IP 2.2-4.6 mg/dL Inorg Phosphate 4.3 Performed By: #### FIB, PTPTT, CA, CHM6, HFP, IPB, LDO, MGO, URICB, CBCDFC, CMVG, HEP3B, HSVG12, AMLMOB #### [facility] [address] [place] [address] [place] [address] LD TOTAL Collected: 02/14/2018 Status: F Source: [facility] 5:27 AM [facility] REPOSITORY TYPE CODE TESTS RESULT OUT OF RANGE REFERENCE UNITS LAB LD 100-190 U/L High LD Total 266 Performed By: #### FIB, PTPTT, CA, CHM6, HFP, IPB, LDO, MGO, URICB, CBCDFC, CMVG, HEP3B, HSVG12, AMLMOB #### [facility] [address] [place] [address] [facility] [address] [place] [address] MAGNESIUM Collected: 02/14/2018 Status: F Source: [facility] 5:27 AM [facility] REPOSITORY TYPE CODE TESTS RESULT OUT OF REFERENCE UNITS RANGE LAB MG 1.6-2.6 mg/dL Low Magnesium 1.4 Performed By: #### FIB, PTPTT, CA, CHM6, HFP, IPB, LDO, MGO, URICB, CBCDFC, CMVG, HEP3B, HSVG12, AMLMOB #### [facility] [address] [place] [id number] [place] [address] [address] [place] [address] URIC ACID Collected: 02/14/2018 Status: F Source: [facility] 5:27 AM [facility] REPOSITORY TYPE CODE TESTS RESULT OUT OF RANGE REFERENCE UNITS LAB URIC 3.5-7.0 mg/dL High Uric Acid 7.3 Performed By: #### FIB, PTPTT, CA, CHM6, HFP, IPB, LDO, MGO, URICB, CBCDFC, CMVG, HEP3B, HSVG12, AMLMOB #### [facility] [address] [place] [id number] [place] [address] [address] [place] [address] CBC,PLATELET,DIFFERENTIAL - CCL Collected: Status: F Source: [facility] 02/14/2018 5:27 AM [facility] REPOSITORY TYPE CODE TESTS RESULT OUT OF [...] Lymph 1.36 LAB AMONO 0.30-0.82 K/uL Abs [place] 0.12 Low LAB AEOS <0.55 K/uL Abs Eos 0.07 LAB ABASO <0.09 K/uL Abs Baso 0.00 LAB AMETA 0.00 K/uL Abs [place] 0.07 High LAB PLTEST PLATELET Automated ESTIMATE platelet count confirmed by manual slide review. Performed By: #### FIB, PTPTT, CA, CHM6, HFP, IPB, LDO, MGO, URICB, CBCDFC, CMVG, HEP3B, HSVG12, AMLMOB #### U [facility] [address] [place] [address] [place] [address] CMV IGG ANTIBODY Collected: 02/14/2018 Status: F Source: [facility] 5:27 AM [facility] REPOSITORY TYPE CODE TESTS RESULT OUT OF REFERENCE UNITS RANGE LAB CMVG Negative CMV IgG Negative Antibody Performed By: #### FIB, PTPTT, CA, CHM6, HFP, IPB, LDO, MGO, URICB, CBCDFC, CMVG, HEP3B, HSVG12, AMLMOB #### [facility] [address] [place] [phone] [place] [address] [place] [address] CHRONIC HEPATITIS B Collected: 02/14/2018 Status: F Source: [facility] PACKAGE 5:27 AM [facility] REPOSITORY TYPE CODE TESTS RESULT OUT OF REFERENCE UNITS RANGE LAB HBSAG Negative Hep B Surface Ag Negative LAB HBSAB Negative Hep B Surface Ab Negative LAB HBCBG Negative Hep B Core Ab,Total Negative (IgG+IgM) LAB HCAB Negative Hepatitis C Negative Antibody Performed By: #### FIB, PTPTT, CA, CHM6, HFP, IPB, LDO, MGO, URICB, CBCDFC, CMVG, HEP3B, HSVG12, AMLMOB #### [facility] [address] [place] [address] [place] [address] HSV I&II IGG ANTIBODY Collected: 02/14/2018 Status: F Source: [facility] 5:27 AM [facility] REPOSITORY TYPE CODE TESTS RESULT OUT OF RANGE REFERENCE UNITS LAB HSVG1 Negative INDETERMINATE Abnormal HSV 1 IgG Antibody Result Comment: RECOMMEND THAT TEST BE REPEATED LAB HSVG2 Negative HSV 2 Negative IgG Antibody Performed By: #### FIB, PTPTT, CA, CHM6, HFP, IPB, LDO, MGO, URICB, CBCDFC, CMVG, HEP3B, HSVG12, AMLMOB #### [facility] [address] [place] [address] [place] [address] AMLMOL (MY-NGS,CEBPA,FLT3),BLOOD Observed: Status: F Source: [facility] 02/14/2018 5:27 AM [facility] REPOSITORY Peripheral blood NOT DETECTED 0 NOT DETECTED 0 Interpretation: Tommie Anthony M.D. Performed By: #### FIB, PTPTT, CA, CHM6, HFP, IPB, LDO, MGO, URICB, CBCDFC, CMVG, HEP3B, HSVG12, AMLMOB #### [facility] [address] [place] [address] [place] [address] IMMUNOPHENOTYPING, BLOOD Collected: Status: F Source: [facility] 02/14/2018 5:27 [facility] REPOSITORY TYPE CODE TESTS RESULT OUT OF REFERENCE UNITS RANGE LAB ICINT Immunophenotyping (PBIPP) SEE NOTES Result Comment: (NOTE) IMMUNOPHENOTYPING DIAGNOSIS PATIENT NAME: LEXI DICKINSON : 1945 ACCN#: [id number] REVIEWED BY: Samy Vivas M.D., Ph.D. [id number] SAMPLE TYPE: Peripheral Blood Immunophenotypic analysis demonstrates [...] of surface immunoglobulin light chains shows a [place]:Lambda ratio of 35:8 with dim to moderate staining intensity. MARKER DESCRIPTION LYM REG% ABS/mm3 NORMAL % NML ABS ABSOLUTE LYMPHOCYTE COUNT 1360 [id number] CD19+ B CELL 46.8 636 2.0-21.0 20-1008 [...] determined The Flow Cytometry Laboratory at [facility]. It has not been cleared or approved by the FDA. This laboratory is certified under the Clinical Laboratory Improvement Amendments (CLIA) as qualified to perform high complexity clinical laboratory testing. This test is used for clinical purposes. It should not be regarded as investigational or for research. The [facility] Flow Cytometry Laboratory lower limit of CLL MRD detection is 0.1% of the gated lymphocytes. Performed By: #### PBIPP #### [facility] [address] [place] [address] [place] [address] EMERGENCY DEPARTMENT Observed: 02/14/2018 Status: F Source: [place] SUMMARY 12:55 AM [facility] REPOSITORY [facility] Medical Records Department [address] [place] [address] Emergency Department Summary 02/13/18 1813 MR#: [id number] Acct: [id number] Name: LEXI DICKINSON Rep #: [id number] : 1945 72 From: Joann Gibson MD PCP: Luis Alberto Tatum DO Status: REG ER - ER Visit Summary Date of Service: 02/13/18 Chief Complaint: Needs transfer to [facility] History of Present Illness: The patient is a 72 M presenting stating that he was advised to come to the ER to arrange transfer to [facility]. Patient was seen by his primary care physician Dr. Tatum and had outpatient blood work today. This was reviewed with Dr. Ybarra. 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 He was advised to come to the ED for transfer to [facility] for further treatment. Physical Examination: Vitals are [...] lymphocytic leukemia This note was generated with [employer] dictation software. It may contain incorrect words, spelling, and punctuation that were not noted in review of the chart prior to signing ED Disposition - Plan for ED Patient: Chief Complaint: General Illness Referrals: Luis Alberto Tatum, DO [Primary Care Provider] - What to do if you have Problems For any increased pain, shortness of breath, bleeding, nausea or vomiting, chest pain, or any unexpected problems, contact your Primary Care Provider. Call [facility] ([phone]) or report to the closest Emergency Room. Call 911 if necessary. 02/14/18 0055 <Electronically signed by Joann Gibson MD> Date Joann Gibson MD Cosigner Signature (If Indicated): Date CC: Luis Alberto Tatum DO ERYTHROCYTE SED RATE Collected: 02/13/2018 Status: F Source: [place] 12:45 PM [facility] REPOSITORY TYPE CODE TESTS RESULT OUT OF RANGE REFERENCE UNITS LAB L102.0000 0-20 mm/hr Normal SED RATE 13 Performed By: #### L101.9900, L100.0100 #### [facility] [address] [place], [address] CBC W/DIFF, AUTOMATED Collected: 02/13/2018 Status: C Source: [place] 12:45 PM [facility] REPOSITORY TYPE CODE TESTS RESULT OUT OF [...] yulia Performed By: #### L101.9900, L100.0100 #### [facility] [address], [address] COMPREHENSIVE METABOLIC Collected: 02/13/2018 Status: F Source: [facility] 12:45 PM [facility] REPOSITORY Order Comment: Serial Specimen #1, #2 [...] L500.4050, L501.1400, L501.6710, L503.6150, L503.6550, L504.2610 #### [facility] [address] [place], [place], [address] URIC ACID Collected: 02/13/2018 Status: F Source: [place] 12:45 PM [facility] REPOSITORY Order Comment: Serial Specimen #1, #2 or #3? 1 TYPE CODE TESTS RESULT OUT OF RANGE REFERENCE UNITS LAB L501.1400 3.5-7.2 mg/dL High URIC 8.4 Result Comment: The drugs N-Acetylcysteine and Metamizole may falsely depress this assay. Performed By: #### L500.4050, L501.1400, L501.6710, L503.6150, L503.6550, L504.2610 #### [facility] [address] [place], [address] CRP Collected: 02/13/2018 Status: F Source: [place] 12:45 PM [facility] REPOSITORY Order Comment: Serial Specimen #1, #2 [...] L500.4050, L501.1400, L501.6710, L503.6150, L503.6550, L504.2610 #### [facility] [address] [place], [address] IRON Collected: 02/13/2018 Status: F Source: [place] 12:45 PM [facility] REPOSITORY Order Comment: Serial Specimen #1, #2 or #3? 1 TYPE CODE TESTS RESULT OUT OF RANGE REFERENCE UNITS LAB L503.6150 65-175 ug/dL Normal IRON 156 Performed By: #### L500.4050, L501.1400, L501.6710, L503.6150, L503.6550, L504.2610 #### [facility] [address] [place], [address] FERRITIN Collected: 02/13/2018 Status: F Source: [place] 12:45 PM [facility] REPOSITORY Order Comment: Serial Specimen #1, #2 or #3? 1 TYPE CODE TESTS RESULT OUT OF REFERENCE UNITS RANGE LAB L503.6550 26-388 ng/mL High FERRITIN 729 Performed By: #### L500.4050, L501.1400, L501.6710, L503.6150, L503.6550, L504.2610 #### [facility] [address] [place], [address] LDH Collected: 02/13/2018 Status: F Source: [place] 12:45 PM [facility] REPOSITORY Order Comment: Serial Specimen #1, #2 or #3? 1 TYPE CODE TESTS RESULT OUT OF RANGE REFERENCE UNITS LAB L504.2610 87-241 U/L High LDH 352 Performed By: #### L500.4050, L501.1400, L501.6710, L503.6150, L503.6550, L504.2610 #### [facility] [address] [place], [address] PROTHROMBIN TIME W/INR Collected: 02/13/2018 Status: F Source: [place] 12:45 PM [facility] REPOSITORY TYPE CODE TESTS RESULT OUT OF RANGE REFERENCE UNITS LAB L300.4150 11.7-14.9 SECONDS Normal PROTIME 13.5 LAB L300.4200 Normal INR 1.0 Performed By: #### L300.3900, L300.4310 #### [facility] [address] [place], [address] PARTIAL THROMBOPLAST Collected: 02/13/2018 Status: F Source: [place] TIME 12:45 PM [facility] REPOSITORY TYPE CODE TESTS RESULT OUT OF RANGE REFERENCE UNITS LAB L300.4310 24.1-36.2 Seconds Normal PTT 27.7 Performed By: #### L300.3900, L300.4310 #### [facility] [address] [place], [address] [id number], S Collected: Status: F Source: [facility] 02/13/2018 12:45 PM [facility] REPOSITORY TYPE CODE TESTS RESULT OUT OF RANGE REFERENCE UNITS LAB L3890.5000 0.6-2.4 mg/L High B2 6.9 [id number] Result Comment: Siemens Immulite 2000 Immunochemiluminometric assay (ICMA) Performed at: - [facility] [id number] Technician Automated Equipment: Ky Bruce MD, Phone: [phone] Performed By: #### L3890.5000 #### [facility] (refer to report for specific site) refer to report for address and phone number EMERGENCY DEPARTMENT Observed: 02/09/2018 Status: F Source: [facility] SUMMARY 1:07 PM [facility] REPOSITORY [facility] Medical Records Department [address] [place] [address] Emergency Department Summary 02/09/18 0940 MR#: [id number] Acct: [id number] Name: LXEI DICKINSON Rep #: [id number] : 1945 72 From: Roderick Early DO PCP: Luis Alberto Tatum DO Status: REG ER - ER Visit [...] discussed with his primary care physician, Dr. Tatum. He will follow-up with the patient in his office for further evaluation including stress test and referral for endoscopy. Patient understood and was agreeable with the plan. All questions were answered. Disposition: Discharged home Impression: Anemia This note was generated with [employer] dictation software. It may contain incorrect words, spelling, and punctuation that were not noted in review of the chart prior to signing ED Disposition - Plan for ED Patient: Disposition: Home or Assisted Living Chief Complaint: Dizziness Diagnosis: Anemia Instructions: ED Dizziness [facility] Referrals: Luis Alberto Tatum, [Primary Care Provider] - What to do if you have Problems For any increased pain, shortness of breath, bleeding, nausea or vomiting, chest pain, or any unexpected problems, contact your Primary Care Provider. Call [facility] ([phone]) or report to the closest Emergency Room. Call 911 if necessary. 02/09/18 1307 <Electronically signed by Roderick Early DO> Date Roderick Early DO Cosigner Signature (If Indicated): Date CC: Luis Alberto Tatum DO Observed: 02/09/2018 Status: F Source: [facility] STOOL OCCULT BLOOD 11:20 AM [facility] IFOB REPOSITORY [facility] iFOB Occult Blood Negative Performed By: #### M100.7900 #### [facility] [address] [facility] [address] [place], [place], [address] URINALYSIS, COMPLETE Collected: 02/09/2018 Status: F Source: [place] 11:20 AM [facility] REPOSITORY Order Comment: How was Urine Obtained? [...] Normal CRYSTAL Performed By: #### L400.0001 #### [facility] [address] [place], [address] CBC W/DIFF, AUTOMATED Collected: 02/09/2018 Status: C Source: [place] 9:50 AM [facility] REPOSITORY TYPE CODE TESTS RESULT OUT OF [...] Lymph 1.80 Performed By: #### L100.0100 #### [facility] [address] [place], [place], [address] COMPREHENSIVE METABOLIC Collected: 02/09/2018 Status: F Source: [facility] 9:50 AM [facility] REPOSITORY TYPE CODE TESTS RESULT OUT OF [...] GAP 11 Performed By: #### L500.4050 #### [facility] [address] [place], [address] ACUTE ABDOMEN INC Observed: 02/09/2018 Status: F Source: [place] CHEST 9:40 AM [facility] REPOSITORY [facility] Imaging Services [address] [place] [address] Acute Abdomen Inc Chest MR#: [id number] Acct: [id number] Name: LEXI DICKINSON Rep #: [id number] : 1945 M 72 From: Hal North MD PCP: Luis Alberto Tatum DO Status: REG ER Study: Acute Abdomen Inc Chest Date of Exam: 02/09/18 Exam# [id number] Ordering Dr: Roderick Early DO STUDY: X-RAY [...] , CC: Roderick Early DO; Luis Alberto Tatum DO Pulp Drier: Signed HEMOGLOBIN A1C Collected: 12/15/2017 Status: F Source: [facility] 1:31 PM [facility] REPOSITORY TYPE CODE TESTS RESULT OUT OF RANGE REFERENCE UNITS LAB L501.9985 4.2-6.3 % High HGB A1C 7.4 Performed By: #### L501.9985 #### [facility] [address] [place], [place], [address] LIPID PROFILE Collected: 12/15/2017 Status: F Source: [facility] 1:31 PM [facility] REPOSITORY TYPE CODE TESTS RESULT OUT OF [...] VLDL 62 Performed By: #### L500.4100 #### [facility] [address] [place], [address] TESTOSTERONE, TOTAL / Collected: 12/15/2017 Status: F Source: [facility] FREE 1:31 PM [facility] REPOSITORY Order Comment: Has Patient had X-rays with Contrast this admission? N TYPE CODE TESTS RESULT OUT OF RANGE REFERENCE UNITS LAB L3100.5320 264-916 ng/dL Low 163 TESTOSTER,TO VINCENZO Result Comment: Adult male reference interval is based on a population of healthy nonobese males (BMI <30) between 19 and 39 years old. Daniel et.al. JCEM 2017,102;1879-5788. PMID: [id number]. LAB L3100.5340 5.00-21.00 ng/dL Low TESTOSTER,FREE 4.63 LAB L3100.5360 1.50-4.20 % TESTOSTER %FREE Normal 2.84 Result Comment: Performed at: [address] [id number] Technician Automated Equipment: Jose Manuel Koehler PhD, Phone: [phone] Performed at: [address] [id number] Technician Automated Equipment: Ky Bruce MD, Phone: [phone] Performed By: #### L3100.5310 #### [facility] (refer to report for specific site) refer to report for address and phone number ONCOLOGY VISIT REPORT Observed: 12/06/2017 Status: F Source: [facility] 1:36 PM [facility] REPOSITORY [facility] [place] [address] OFFICE VISIT Date of Service: 12/06/17 1330 MR#: [id number] Acct: [id number] Name: LEXI DICKINSON Rep #: [id number] : 1945 From: Karri Ybarra MD Age/Sex: [...] Instructions Recorded Primary Care Provider: Luis Alberto Tatum DO Referring Provider: - Problem List (1) History of non-Hodgkin's lymphoma Status: Chronic Code Visit Office Visits / Consults: 57104 OV L3 Est 12/06/17 1336 <Electronically signed by Karri Ybarra MD> Date Karri Ybarra MD Cosigner Signature: Date (if applicable) CC: CBC W/DIFF, AUTOMATED Collected: 12/06/2017 Status: F Source: [facility] 12:34 PM [facility] REPOSITORY Order Comment: Reason for Laboratory Test [...] Lymph 1.50 Performed By: #### L100.0100 #### [facility] [place], [address] COMPREHENSIVE METABOLIC Collected: 12/06/2017 Status: F Source: [facility] VACA 12:34 PM [facility] REPOSITORY Order Comment: Reason for Laboratory Test [...] 9 Performed By: #### L500.4050, L504.2610 #### [facility] [address] [place], [address] LDH Collected: 12/06/2017 Status: F Source: [place] 12:34 PM [facility] REPOSITORY Order Comment: Reason for Laboratory Test OV Serial Specimen #1, #2 or #3? 1 TYPE CODE TESTS RESULT OUT OF RANGE REFERENCE UNITS LAB L504.2610 87-241 U/L Normal LDH 239 Performed By: #### L500.4050, L504.2610 #### [facility] [address] [place], [address] ALLERGIES ALLERGIES DATE TYPE / CODE NAME / CODE REACTION SEVERITY SOURCE 09/11/2018 Drug dextromethor Unknown [facility] Allergy/4160 mascorro/[id number] Hospital 82410(SNOMED 427(RXNORM) Repository CT) 09/11/2018 Drug quetiapine/F Other [facility] Allergy/4160 [id number]( Hospital 04960(SNOMED NORM) Repository CT) 09/11/2018 Drug duloxetine/F Other [facility] Allergy/4160 [id number]( Hospital 31059(SNOMED NORM) Repository CT) ENCOUNTERS ENCOUNTERS ADMIT/DISCHARGE ACCOUNT NUMBER ADMITTING ENCOUNTER LOCATION SOURCE CLASS 09/18/2018 [id number] Ambulatory [facility] ding:ONC Repository 09/11/2018 [id number] Ambulatory BMSBuilding: [place] [facility] Repository 09/08/2018 [id number] Ambulatory [facility] ding:MEDOUTP Repository 09/04/2018 [id number] Ambulatory BMSBuilding: [place] [facility] Repository 08/26/2018 [id number] Ambulatory Building:[facility] Repository 08/25/2018 [id number] Ambulatory Building:[facility] Repository 08/24/2018 [id number] Ambulatory Building:[facility]5 [facility] Repository 08/24/2018 [id number] Ambulatory Building:[facility]5 [facility] Repository 08/14/2018 [id number] Ambulatory BBuilding:[facility] Repository 08/11/2018 [id number] Ambulatory [facility] ding:MEDOUTP Repository 08/08/2018 [id number] Ambulatory [facility] ding:MEDOUTP Repository 07/29/2018 [id number] Ambulatory Building:[facility]5 [facility] Repository 07/28/2018 [id number] Ambulatory Building:[facility]5 [facility] Repository 07/28/2018 [id number] Ambulatory Building:K6T [facility] Repository 07/27/2018 [id number] Ambulatory Building:[facility]5 [facility] Repository 07/27/2018 [id number] Ambulatory Building:[facility]5 [facility] Repository 07/26/2018 [id number] Ambulatory Building:DHR [facility] Repository 07/14/2018 [id number] Ambulatory [facility] ding:MEDOUTP Repository 07/01/2018 [id number] Ambulatory Building:[facility]5 [facility] Repository 06/30/2018 [id number] Ambulatory Building:[facility]5 [facility] Repository 06/29/2018 [id number] Ambulatory Building:[facility]5 [facility] Repository 06/29/2018 [id number] Ambulatory Building:CT5 [facility] Repository 06/20/2018 [id number] Ambulatory [facility] ding:MEDOUTP Repository 06/13/2018 [id number] Ambulatory [facility] ding:MEDOUTP Repository 06/12/2018/06/12/20 [id number] Emergency [address] ding:ED Repository 06/03/2018 [id number] Ambulatory Building:[facility]5 [facility] Repository 06/02/2018 [id number] Ambulatory Building:CT5 [facility] Repository 06/01/2018 [id number] Ambulatory Building:CT5 [facility] Repository 06/01/2018 [id number] Ambulatory Building:[facility]5 [facility] Repository 05/22/2018 [id number] Ambulatory BMSBuilding: [place] [facility] Repository 05/16/2018 [id number] Ambulatory [facility] ding:MEDOUTP Repository 05/12/2018 [id number] Ambulatory [facility] ding:MEDOUTP Repository 05/06/2018 [id number] Ambulatory Building:[facility]5 [facility] Repository 05/05/2018 [id number] Ambulatory Building:CT5 [facility] Repository 05/04/2018 [id number] Ambulatory Building:[facility] Repository 05/04/2018 [id number] Ambulatory Building:CT5 [facility] Repository 05/04/2018 [id number] Ambulatory Building:CT5 [facility] Repository 04/25/2018 [id number] Ambulatory BMSBuilding: [place] [facility] Repository 04/15/2018/04/15/20 [id number] Ambulatory [address] ding:PCUOUT Repository 04/12/2018 [id number] Ambulatory [facility] ding:MEDOUTP Repository 03/29/2018/04/10/20 [id number] [facility], Inpatient Building:[address] [place] [address] CANDI Deborah Goel: [place] 163ed: A [facility] Repository 03/28/2018 [id number] Ambulatory BMSBuilding: [place] [facility] Repository 03/13/2018 [id number] Ambulatory BMSBuilding: [place] [facility] Repository 02/27/2018 [id number] Ambulatory BMSBuilding: [place] [facility] Repository 02/14/2018/02/25/20 [id number] [facility], Inpatient Building:[place] [address] [facility] Amando: [place] 1626Bed: Kay [facility] Repository 02/13/2018/02/15/20 [id number] Emergency [place] [address] ding:ED Repository 02/13/2018 [id number] Ambulatory [place] [facility] ding:MTLAB Repository 02/09/2018/02/10/20 [id number] Emergency [address] ding:ED Repository 12/15/2017 [id number] Ambulatory [facility] ding:BFHLAB Repository 12/06/2017 [id number] Ambulatory BMSBuilding: Edith BMS.CF.[facility] Repository PAYERS PAYERS ENCOUNTER GUARANTOR PAYER SUBSCRIBER SOURCE 09/18/2018 LEXI STAPLETON1 Primary LEXI D Edith [place] Insurance:ANTHIGNACIA MARREROB: [place] [id number] [id number]: (330) ADVANTAPolicy Number: Repository [phone] () [id number] Date:0314-18-81Fj [address] [place] [address] 72173ML: 09/18/2018 Secondary NOT GIVENUNK Edith Insurance:SELF PAY [facility] Number: Effective Repository Date:2016-11-15 09/11/2018 LEXI STAPLETON1 Primary LEXI D [place] Insurance:JIGNESH MARREROB: [place] [id number] Hospital 79626Hha: (330) ADVANTAPolicy Number: Repository [phone] () [id number] Date:8725-49-00Yo [address] [place] [address] 28657MV: 09/11/2018 Secondary NOT GIVENUNK Edith Insurance:SELF PAY [facility] Number: Effective Repository Date:2018-09-11 09/08/2018 LEXI STAPLETON1 Primary NOT GIVENUNK Edith [place] Insurance:SELF PAY [facility] 57158Cmc: (330) Number: Effective Repository [phone] () Date:2018-09-07 09/04/2018 LEXI DICKINSON341 Primary LEXI D Edith [place] Insurance:ANTH WILSONDOB: [place] [id number] Hospital 35325Umn: (330) ADVANTAPolicy Number: Repository [phone] () [id number] Date:7808-23-41Mi [address] [place] [address] 62755TI: 09/04/2018 Secondary NOT GIVENUNK [place] Insurance:SELF PAY [facility] Number: Effective Repository Date:2018-09-04 08/26/2018 LEXI WILSONDOB: Primary LEXI WILSONDOB: [facility] Insurance:MEDICARE [id number] [facility] [id number]: (330) [id number] 37514Ech: (330) Repository [phone] () Date:7419-34-00Subv [id number] () Name:CARE 08/25/2018 LEXI WILSONDOB: Primary LEXI WILSONDOB: [facility] Insurance:MEDICARE [id number] [facility] [place], [place] PPOPolicy Number: [facility] [id number]: (330) [id number] 36165Acx: (330) Repository [phone] () Date:0915-53-34Spgv [id number] () Name:CARE 08/24/2018 LEXI WILSONDOB: Primary LEXI WILSONDOB: [facility] Insurance:MEDICARE [id number] [facility] [place] PPOPolicy Number: [place] Center [address]Wda: (330) [id number] 15779Avy: (330) Repository [phone] () Date:8903-39-84Fsxx [phone] () Name:CARE 08/24/2018 LEXI WILSONDOB: Primary LEXI WILSONDOB: [facility] Insurance:MEDICARE [id number] [place] PPOPolicy Number: [place] Center [address]Rdh: (330) [id number] 64152Zoi: (330) Repository [phone] () Date:4346-93-49Bsat [phone] () Name:CARE 08/14/2018 LEXI D Primary LEXI D [facility] WILSONDOB: Insurance:JIGNESH DICKINSONDOB: [facility] [id number] [address] CR[address] [facility] [id number] Repository [address] [place] [address], Number: [facility] 09794Ycu: [id number] [address] [place] [address] Date:2017-08-[address] [facility] 76629Pmr: (HP) 7587-86-53Dpih Name:O Box ()Tel: (134) [phone] [place] 000-0000 () 27163YI: 08/11/2018 LEXI D [id number] Primary LEXI D Edith [place] Insurance:ANTHIGNACIA MARREROB: [place] [id number] Hospital 81069Jsj: (330) ADVANTAPolicy Number: Repository [phone] () [id number] Date:1714-12-62Yh [address] [place] [address]DF: 08/11/2018 Secondary NOT GIVENUNK Edith Insurance:SELF PAY [facility] Number: Effective Repository Date:2018-08-10 08/08/2018 LEXI D [id number] Primary LEXI D Edith [place] Insurance:ANTHIGNACIA DICKINSONDOB: [facility] [place] [id number] Hospital 98003Ptw: (330) ADVANTAPolicy Number: Repository [phone] () [id number] Date:3202-06-30Dc[address] [address]GD: 08/08/2018 Secondary NOT GIVENUNK [place] Insurance:SELF PAY [facility] Number: Effective Repository Date:2018-08-07 07/29/2018 LEXI WILSONDOB: Primary LEXI WILSONDOB: [facility] Insurance:MEDICARE [id number] [facility] [place] [facility] [place] PPOPolicy Number: [facility] 76786Kyo: (330) [id number] 96001Sbx: (330) Repository [phone] () Date:2246-12-14Ague [phone] () Name:CARE 07/28/2018 LEXI WILSONDOB: Primary LEXI WILSONDOB: [facility] Insurance:MEDICARE [id number] [facility] [place] [facility] [place] PPOPolicy Number: [facility] 79492Qxq: (330) [id number] 87683Dyc: (330) Repository [phone] () Date:1469-54-31Ljqy [phone] () Name:CARE 07/28/2018 LEXI WILSONDOB: Primary LEXI WILSONDOB: [facility] Insurance:MEDICARE [id number] [facility] [place] [facility] [place] PPOPolicy Number: [facility] 41685Sgm: (330) [id number] 92244Ggr: (330) Repository [phone] (HP) Date:1185-87-25Jumk [phone] (HP) Name:CARE 07/27/2018 LEXI WILSONDOB: Primary LEXI WILSONDOB: [facility] Insurance:MEDICARE [id number] [facility] [place] PPOPolicy Number: [facility] 08107Cru: (330) [id number] 42635Iwe: (330) Repository [phone] () Date:8383-91-05Ipnl [phone] (HP) Name:CARE 07/27/2018 LEXI WILSONDOB: Primary LEXI WILSONDOB: [facility] Insurance:MEDICARE [id number] [place] [address] [place] [facility] [place] PPOPolicy Number: [facility] 24693Vpx: (330) [id number] 01633Cei: (330) Repository [phone] () Date:7369-44-97Xiej [phone] () Name:CARE 07/26/2018 LEXI WILSONDOB: Primary LEXI WILSONDOB: [facility] Insurance:MEDICARE [id number] [facility] [place] [facility] [place] PPOPolicy Number: [facility] 35281Xyi: (330) [id number] 12575Pdm: (330) Repository [phone] () Date:8764-19-18Mayt [phone] (HP) Name:CARE 07/14/2018 LEXI DICKINSON341 Primary LEXI D [facility] [place] [id number] Hospital 16245Lty: (330) ADVANTAPolicy Number: Repository [phone] (HP) [id number] Date:1264-06-02OpZachary [place]ille [id number]: 07/14/2018 Secondary NOT GIVENUNK Edith Insurance:SELF PAY [facility] Number: Effective Repository Date:2018-07-13 07/01/2018 LEXI WILSONDOB: Primary LEXI WILSONDOB: [facility] Insurance:MEDICARE [id number] [facility] [place] [facility] [place] [facility]: [place] [facility] [id number]: (330) [id number] 94918Fuz: (330) Repository [phone] () Date:4911-72-34Adrj [phone] () Name:CARE 06/30/2018 LEXI WILSONDOB: Primary LEXI WILSONDOB: [facility] Insurance:MEDICARE [id number] [facility] [place] [facility] [place] [facility] Number: [place] [facility] 36357Vzq: (330) [id number] 19380Duk: (330) Repository [phone] () Date:8203-41-41Irmd [phone] () Name:CARE 06/29/2018 LEXI WILSONDOB: Primary LEXI WILSONDOB: [facility] Insurance:MEDICARE [id number] [facility] [place] [facility] [place] [facility] Number: [place] [facility] 54730Ktw: (330) [id number] 14825Drw: (330) Repository [phone] () Date:9132-55-94Piht [phone] () Name:CARE 06/29/2018 LEXI WILSONDOB: Primary LEXI WILSONDOB: [facility] Insurance:MEDICARE [id number] [facility] [place] [facility] [place] PPOPolicy Number: [place] [facility] 97281Cbu: (330) [id number] 38326Wvz: (330) Repository [phone] () Date:7953-53-73Dvja [phone] () Name:CARE 06/20/2018 LEXI [place] Primary LEXI D [place] Insurance:JIGNESH MARREROB: [facility] [place] [id number] Hospital 97344Mbv: (330) ADVANTAPolicy Number: Repository [phone] () [id number] Date:3657-27-89El [address] [place] [address] 44320RY: 06/20/2018 Secondary NOT GIVENUNK [place] Insurance:SELF PAY [facility] Number: Effective Repository Date:2018-06-20 06/13/2018 LEXI DICKINSON341 Primary LEXI D Edith [place] Insurance:JIGNESH MARREROB: [facility] [place] [id number] Hospital 10920Qlk: (330) ADVANTAPolicy Number: Repository [phone] () [id number] Date:0064-65-40Ig [address] [place] [address] 03643QV: 06/13/2018 Secondary NOT GIVENUNK [place] Insurance:SELF PAY [facility] Number: Effective Repository Date:2018-06-12 06/12/2018 LEXI DICKINSON341 Primary LEXI D [place] Insurance:JIGNESH MARREROB: [place] [id number] Hospital 17996Ifl: (330) ADVANTAPolicy Number: Repository [phone] () [id number] Date:5410-95-73If [address] [place] [address] 90979AS: 06/12/2018 Secondary NOT GIVENUNK [place] Insurance:SELF PAY [facility] Number: Effective Repository Date:2018-06-12 06/03/2018 LEXI WILSONDOB: Primary LEXI WILSONDOB: [facility] Insurance:MEDICARE [id number] [facility] [place] [facility] [place] PPOPolicy Number: JACQUELINEPATRICK [facility] 85965Vqq: (330) [id number] 88850Wru: (330) Repository [phone] () Date:0466-28-35Jbba 2617 () Name:CARE 06/02/2018 LEXI WILSONDOB: Primary LEXI WILSONDOB: [facility] Insurance:MEDICARE [id number] [facility] [place] [facility] [place] PPOPolicy Number: [place] [facility] 06556Dgs: (330) [id number] 20621Vwl: (330) Repository [phone] () Date:3823-64-22Rkxj 2610 () Name:CARE 06/01/2018 LEXI WILSONDOB: Primary LEXI WILSONDOB: [facility] Insurance:MEDICARE [id number] [facility] [place] [facility] [place] PPOPolicy Number: [place] [facility] 07171Hng: (330) [id number] 59034Tjd: (330) Repository [phone] () Date:3822-67-73Dsnu 261 () Name:CARE 06/01/2018 LEXI WILSONDOB: Primary LEXI WILSONDOB: [facility] Insurance:MEDICARE [id number] [facility] [place] [facility]: [place] [facility] 19067Dbi: (330) [id number] 87325Ojw: (330) Repository [phone] () Date:6522-83-43Qkav [phone] () Name:CARE 05/22/2018 LEXI D [id number] Primary LEXI D Edith [place] Insurance:JIGNESH DICKINSONDOB: Community [facility] [id number] Hospital 18417Zsb: (330) ADVANTAPolicy Number: Repository [phone] () [id number] Date:2536-05-31Pl [address] [place] [address] 17986JE: 05/22/2018 Secondary NOT GIVENUNK Edith Insurance:SELF PAY [facility] Number: Effective Repository Date:2018-05-22 05/16/2018 LEXI D [id number] Primary LEXI D Edith [place] Insurance:JIGNESH MARREROB: [facility] [id number] Hospital 20105Mfa: (330) ADVANTAPolicy Number: Repository [phone] () [id number] Date:6467-82-14Sm [address] [place] [address] 41488EI: 05/16/2018 Secondary NOT GIVENUNK Edith Insurance:SELF PAY [facility] Number: Effective Repository Date:2018-05-15 05/12/2018 LEXI D [id number] Primary LEXI D Edith [place] Insurance:JIGNESH MARREROB: [facility] [place] [id number] Hospital 56330Zvk: (330) ADVANTAPolicy Number: Repository [phone] () [id number] Date:5366-01-85Zj [address] [place] [address] 37343WA: 05/12/2018 Secondary NOT GIVENUNK Edith Insurance:SELF PAY [facility] Number: Effective Repository Date:2018-05-11 05/06/2018 LEXI WILSONDOB: Primary LEXI WILSONDOB: [facility] [id number] Insurance:MEDICARE [id number] [place] [facility] [place] PPOPolicy Number: [place] [facility] 70437Xoo: (330) [id number] 34548Ivm: (330) Repository [phone] (HP) Date:0144-49-56Crhb [phone] (HP) Name:CARE 05/05/2018 LEXI WILSONDOB: Primary LEXI WILSONDOB: [facility] Insurance:MEDICARE [id number] [facility] [place] [facility] [place] PPOPolicy Number: [place] [facility] 10764Cup: (330) [id number] 62815Voe: (330) Repository [phone] () Date:9500-12-84Htet [phone] (HP) Name:CARE 05/04/2018 LEXI WILSONDOB: Primary LEXI WILSONDOB: [facility] Insurance:MEDICARE [id number] [facility] [place] [facility] [place] [facility]: [place] [facility] 43313Mbi: (330) [id number] 74601Jhp: (330) Repository [phone] () Date:2342-61-93Spwv [phone] (HP) Name:CARE 05/04/2018 LEXI WILSONDOB: Primary LEXI WILSONDOB: [facility] Insurance:MEDICARE [id number] [facility] [place] [facility] [place] [facility] [place] [facility] 14398Ovw: (330) [id number] 95644Zgv: (330) Repository [phone] () Date:5171-61-05Ircr [phone] (HP) Name:CARE 05/04/2018 LEXI WILSONDOB: Primary LEXI WILSONDOB: [facility] Insurance:MEDICARE [id number] [facility] [place] [facility] [place] PPOPolicy Number: [facility] 91367Rqx: (330) [id number] 98320Gps: (330) Repository [phone] () Date:0258-94-94Tevf [phone] () Name:CARE 04/25/2018 LEXI [place] Primary LEXI D [place] Insurance:JIGNESH MARREORB: [place] [id number] Hospital 12490Xiz: (330) ADVANTAPolicy Number: Repository [phone] () [id number] Date:6455-00-96Ox [address] [place] [address] 11163SA: 04/25/2018 Secondary NOT GIVENUNK [place] Insurance:SELF PAY [facility] Number: Effective Repository Date:2018-04-25 04/15/2018 LEXI DICKINSON341 Primary LEXI D Edith [place] Insurance:JIGNESH MARREROB: [place] [id number] Hospital 16482Qku: (330) ADVANTAPolicy Number: Repository [phone] () [id number] Date:0723-73-86Nc [address] [place] [address] 44883AP: 04/15/2018 Secondary NOT GIVENUNK [place] Insurance:SELF PAY [facility] Number: Effective Repository Date:2018-04-14 04/12/2018 LEXI DICKINSON341 Primary LEXI D Edith [place] Insurance:JIGNESH MARREROB: [place] [id number] Hospital 24387Itj: (330) ADVANTAPolicy Number: Repository [phone] () [id number] Date:0889-49-91Rp [address] [place] [address] 17681ZA: 04/12/2018 Secondary NOT GIVENUNK Edith Insurance:SELF PAY [facility] Number: Effective Repository Date:2018-04-11 03/29/2018 LEXI WILSONDOB: Primary LEXI WILSONDOB: [facility] [id number] Insurance:MEDICARE [id number] [facility] [place] [facility] [place] PPOPolicy Number: [place] Center 21600Yhq: (330) [id number] 54069Qwk: (330) Repository [phone] () Date:3561-02-19Itvu [phone] () Name:CARE 03/28/2018 LEXI DICKINSON341 Primary LEXI D [place] Insurance:JIGNESH MARREROB: Community [facility] [id number] Hospital 57524Hww: (330) ADVANTAPolicy Number: Repository [phone] () [id number] Date:5950-60-25Hf [address] [place] [address] 32997ZG: 03/28/2018 Secondary NOT GIVENUNK [place] Insurance:SELF PAY [facility] Number: Effective Repository Date:2018-03-28 03/13/2018 LEXI Tali [id number] Primary LEXI D Edith [place] Insurance:JIGNESH MARREROB: [place] [id number] Hospital 78959Nde: (330) ADVANTAPolicy Number: Repository [phone] () [id number] Date:4305-71-48Qu [address] [place] [address] 86008WN: 03/13/2018 Secondary NOT GIVENUNK [place] Insurance:SELF PAY [facility] Number: Effective Repository Date:2018-03-13 02/27/2018 LEXI D [id number] Primary LEXI D Edith [place] Insurance:JIGNESH DICKINSONB: [place] [id number] Hospital 04438Sah: (330) ADVANTAPolicy Number: Repository [phone] () [id number] Date:9859-48-20Ki [address] [place] [address] 25003AN: 02/27/2018 Secondary NOT GIVENUNK Edith Insurance:SELF PAY Community [facility] Number: Effective Repository Date:2018-02-27 02/14/2018 LEXI WILSONDOB: Primary LEXI WILSONDOB: [facility] [id number] Insurance:MEDICARE [id number] [place] [address] [place] PPOPolicy Number: [facility] [id number]: (330) [id number] 05505Yec: (330) Repository [phone] () Date:2615-32-29Wlxi [phone] () Name:CARE 02/13/2018 LEXI D [id number] Primary LEXI D [place] Insurance:JIGNESH MARREROB: [place] [id number] Hospital 25826Mbb: (330) ADVANTAPolicy Number: Repository [phone] () [id number] Date:6171-49-14Ow [address] [place] [address] 52997WK: 02/13/2018 Secondary NOT GIVENUNK Edith Insurance:SELF PAY [facility] Number: Effective Repository Date:2018-02-13 02/13/2018 LEXI D [id number] Primary LEXI D [place] Insurance:JIGNESH MARREROB: [place] [id number] Hospital 29064Bhi: (330) ADVANTAPolicy Number: Repository [phone] () [id number] Date:5498-45-31Th [address] [place] [address] 95724UM: 02/13/2018 Secondary NOT GIVENUNK [place] Insurance:SELF PAY [facility] Number: Effective Repository Date:2018-02-13 02/09/2018 LEXI D [id number] Primary LEXI D [place] Insurance:JIGNESH MARREROB: [place] [id number] Hospital 81932Gkf: (330) ADVANTAPolicy Number: Repository [phone] () [id number] Date:6084-27-73Pf [address] [place] [address] 99903ZZ: 02/09/2018 Secondary NOT GIVENUNK [place] Insurance:SELF PAY [facility] Number: Effective Repository Date:2018-02-09 12/15/2017 LEXI DICKINSON341 Primary LEXI D Edith [place] Insurance:JIGNESH MARREROB: [place] [id number] Hospital 77408Csz: (330) ADVANTAPolicy Number: Repository [phone] () [id number] Date:8547-03-13Wc [address] [place] [address] 18749CI: 12/15/2017 Secondary NOT GIVENUNK [place] Insurance:SELF PAY [facility] Number: Effective Repository Date:2017-12-15 12/06/2017 LEXI STAPLETON1 Primary LEXI D Edith [place] Insurance:JIGNESH LEON: [place] [id number] Hospital 36702Biu: (330) ADVANTAPolicy Number: Repository [phone] () [id number] Date:4572-00-55Us [address] [place] [address] 28914IH: 12/06/2017 Secondary NOT GIVENUNK Edith Insurance:SELF PAY [facility] Number: Effective Repository Date:2017-12-06
== END ==
PROVIDERS: Family Provider Family Medicine; PCP Family Medicine
DX: C83.10 Mantle cell lymphoma, unspecified site (principal)
CPT/HCPCS: 36430; 86850; 86900; 86920; 86922; J7040; P9040; A4216

== ENCOUNTER → 2018-09-26 08:11 | Outpatient (CLI) | payer MEDICARE, SELFPAY ==
[2018-09-06 14:13] VITALS: BMI 25.5
[2018-09-11 15:32] VITALS: BMI 23.9
[2018-09-26] VITALS (9 sets, daily range): BP systolic 90–147; BP diastolic 36–79; PULSE 69–85; RESP 12–16; TEMP 36.8; O2SAT 91–100; BMI 25.4
--- NOTE | 2018-09-26 08:28 | CT_ITS ---
PROCEDURE: CT GUIDED BONE marrow biopsy of the right posterior iliac bone. DATE: September 26, 2018. INDICATION: Male, 73 years old. Patient has a history of lymphoma. PHYSICIAN: Bartolo Adrian M.D. RADIATION DOSAGE (If Supplied By Facility): CTDIvol = ( 18 ) mGy, DLP = ( 404.86 ) mGycm PROCEDURE: The risks, benefits, and alternatives to the procedure were explained to the patient. The specific risk of hemorrhage requiring further treatment or intervention was detailed and accepted. Follow-up instructions were discussed with the patient as well. Written informed consent was obtained. The patient was brought into the CT suite and placed in the prone position. . An appropriate entry site was identified. The overlying skin was prepped and draped in the usual sterile fashion. 1% lidocaine was administered subcutaneously for local anesthesia. Conscious sedation was performed. The patient received 2 mg of Versed and 50 mcg of fentanyl intravenously. Conscious sedation was started 9:38 AM and terminated and 9:58 AM. The patient was independently monitored by the department nurse. Under CT guidance, a bone marrow biopsy of the posterior aspect of the right iliac bone as well as bone marrow aspirate were performed. The specimens were then placed in the appropriate fluid and transported to the laboratory for analysis. Hemostasis was obtained. The patient tolerated the procedure well without immediate complications. CT/Biopsy/Inj or Needle Placement IMPRESSION: Successful CT guided bone marrow biopsy of the posterior aspect of the right iliac bone., as described above. Conscious sedation protocol was followed. Electronically Signed: Bartolo Adrian MD at 13:20 EST , Service support ,
[2018-09-26 08:33] LABS: Absolute Lymphocyte Count 0.34 X10^3/ul (0.83-4.51); Absolute Neutrophil Count 1.7 X10^3/uL (2.0-7.7); Basophil# 0.02 X10^3/uL; Basophil% 0.7 % (0-1); Eosinophil# 0.01 X10^3/uL; Eosinophils% 0.4 % (0-5); Hematocrit 30.8 % (40-54); Lymphocyte # 0.34 X10^3/ul (4.0); Lymphocyte % 12.6 % (19-41); Mean Corp Hgb Conc 32.5 g/gl (32-36); Mean Corpuscular Hgb 34.7 pg (27.0-32.0); Mean Corpuscular Volume 106.9 fL (80-94); Mean Platelet Vol. 8.5 fl (6.2-12.0); Monocyte# 0.63 X10^3/uL; Monocyte% 23.3 % (0-10); Neutrophil # 1.69 X10^3/uL (2.7-7.7); Neutrophil % 62.6 % (47-70); Platelet Count 171 K/mm3 (150-450); RBC Distribution Width CV 17.6 % (11.6-14.6); Red Blood Count 2.88 M/mm3 (4.6-6.2); White Blood Count 2.7 K/mm3 (4.4-11.0)
[2018-09-26 08:36] LABS: Differential Indicated SCAN CRITERIA MET; POSITIVE COUNT NO; POSITIVE DIFFERENTIAL YES; POSITIVE MORPHOLOGY YES
[2018-09-26 08:40] LABS: Partial Thromboplast Time 26.8 Seconds (24.1-36.2); Prothrombin Time (Protime)PT. 13.1 SECONDS (11.7-14.9)
[2018-09-26] MEDS: Midazolam 2 MG/2 ML Syringe IV (09:38)
[2018-09-26] MEDS: fentaNYL 100 MCG/2 ML Ampul IV (09:38)
[2018-09-26 10:10] LABS: Bone Marrow Aspiraton SEE PATHOLOGY REPORT
[2018-09-26 16:19] LABS: Xtra Tube EP Lab EXTRA TUBE
== END ==
PROVIDERS: Family Provider Family Medicine; PCP Family Medicine; Referring Provider Internal Medicine Medical Oncology
DX: C83.10 Mantle cell lymphoma, unspecified site (principal)
CPT/HCPCS: 38222; 36415; 77012; 85025; 85610; 85730; 88305; 88311; 88313; 88341; 88342; 99156; 99157; J7040; A4216

== ENCOUNTER 2018-10-08 12:02 | Emergency (ER) | payer MEDICARE, SELFPAY ==
[2018-09-26 08:53] VITALS: BMI 25.4
[2018-10-08 12:03] VITALS: BP 121/78; PULSE 96; RESP 15; TEMP 36.4; O2SAT 98; BMI 25.8
--- NOTE | 2018-10-08 12:41 | CT_ITS ---
STUDY: CT LUMBAR SPINE WITHOUT CONTRAST REASON FOR EXAM: Male, 73 years old. Status post bone marrow biopsy, increasing back pain RADIATION DOSAGE (If Supplied By Facility): CTDIvol = ( 16.10 ) mGy, DLP = ( 528.21 ) mGycm TECHNIQUE: The patient was scanned in a multi detector CT scanner. High resolution transaxial imaging was performed. Images were obtained from lower thoracic spine to mid sacrum. Sagittal and coronal images were reconstructed. Individualized dose optimization techniques were used for this CT. COMPARISON: Lumbar spine MRI of 04/20/2014, abdomen and pelvis CT of 06/12/2018 FINDINGS: There is straightening of the normal lumbar lordosis. There is no substantial scoliosis. Normal vertebrae of the lumbar spine. No compression fracture. L1-2: Endplate sclerosis with vacuum disc phenomenon anterior spondylosis with broad posterior disc bulge and ligamentum flavum hypertrophy causing narrowing of the spinal canal. Bilateral foraminal stenosis detected. Overall worse since prior MRI. L2-3: Relative preservation of disc height with broad posterior disc bulge, facet arthropathy and ligamentum flavum hypertrophy causing canal and minimal foraminal narrowing similar since prior MRI. L3-4: Progressing disc space narrowing with vacuum disc phenomenon, discogenic endplate sclerosis and broad posterior disc bulge. The disc bulge in conjunction with ligamentum flavum hypertrophy and facet arthropathy narrows the spinal canal, new since the prior study. There is severe right and moderate left foraminal stenosis. L4-5: Severe disc space narrowing, similar since the prior study with retrolisthesis of L4 in relation to L5, similar since the prior study. Broad posterior disc bulge with facet arthropathy and ligamentum flavum hypertrophy with narrowing of the spinal canal, similar since the prior study. Bilateral foraminal stenosis evident with bony encroachment seen on sagittal views. L5-S1: Grade 1 anterolisthesis of L5 in relation to S1 due to bilateral L5 spondylolysis. Broad posterior disc bulge identified but prominent facet arthropathy contributes to lateral narrowing of the spinal canal. There is severe bilateral foraminal stenosis. There is atherosclerosis of the abdominal aorta. CT/Spine Lumbar without Contrast IMPRESSION: 1. Overall worsening multilevel degenerative disc disease resulting in canal and foraminal stenosis, as above and compared to prior MRI of 2013. 2. No compression fracture or destructive bony process demonstrated. Electronically Signed: Ravi Burgos MD at 13:35 EST , Service support ,
--- NOTE | 2018-10-08 12:49 | CT_ITS ---
STUDY: CT ABDOMEN AND PELVIS WITHOUT CONTRAST REASON FOR EXAM: Male, 73 years old. Low back pain, bone marrow biopsy on 09/26/2018 RADIATION DOSAGE (If Supplied By Facility): CTDIvol = ( 16.10 ) mGy, DLP = ( 528.21 ) mGycm TECHNIQUE: Transaxial images were obtained from the dome of the diaphragm to the symphysis pubis without oral contrast, and without intravenous contrast. Sagittal and coronal images were reconstructed. Individualized dose optimization techniques were used for this CT. COMPARISON: PET scan from 09/18/2018 FINDINGS: The visualized lung bases are unremarkable. Apical pericardial calcifications are stable. Normal liver. There are surgical clips in the gallbladder fossa consistent with a prior cholecystectomy. Normal spleen. Normal pancreas. Normal bilateral adrenal glands. Normal right kidney. Normal left kidney. Normal visualized stomach. Normal small intestine. There are multiple colonic diverticula consistent with diverticulosis. There is non-visualization of the appendix. There is diffuse atherosclerotic calcification of the abdominal aorta, without a demonstrated aneurysm. Normal inferior vena cava. Normal retroperitoneum. Nondistended urinary bladder. There are prostatic calcifications. There is a left-sided inguinal hernia containing adipose tissue. No destructive bony process. Old deformity of the bilateral inferior obturator rings compatible with old, healed fractures. CT/Abdomen/Pelvis without Cont IMPRESSION: 1. No hydronephrosis or urinary tract calcifications. No acute inflammatory process. 2. Chronic changes, as above. Electronically Signed: Ravi Burgos MD at 13:30 EST , Service support ,
[2018-10-08] MEDS: Ondansetron 4 MG/2 ML Vial IV (12:52)
[2018-10-08] MEDS: Morphine 4 MG/ML Syringe IV (12:52)
[2018-10-08 13:30] LABS: Absolute Lymphocyte Count 0.49 X10^3/ul (0.83-4.51); Absolute Neutrophil Count 1.9 X10^3/uL (2.0-7.7); Basophil# 0.04 X10^3/uL; Basophil% 1.4 % (0-1); Eosinophil# 0.15 X10^3/uL; Eosinophils% 5.1 % (0-5); Hematocrit 35.5 % (40-54); Hemoglobin 11.4 g/dl (13.0-16.5); Lymphocyte # 0.49 X10^3/ul (4.0); Lymphocyte % 16.6 % (19-41); Mean Corp Hgb Conc 32.1 g/gl (32-36); Mean Corpuscular Hgb 34.3 pg (27.0-32.0); Mean Corpuscular Volume 106.9 fL (80-94); Mean Platelet Vol. 9.1 fl (6.2-12.0); Monocyte# 0.38 X10^3/uL; Monocyte% 12.8 % (0-10); Neutrophil # 1.89 X10^3/uL (2.7-7.7); Neutrophil % 63.8 % (47-70); Platelet Count 224 K/mm3 (150-450); RBC Distribution Width CV 14.8 % (11.6-14.6); RBC Distribution Width SD 56.5 fl (35.1-43.9); Red Blood Count 3.32 M/mm3 (4.6-6.2)
[2018-10-08 13:43] LABS: Differential Indicated SCAN CRITERIA MET; POSITIVE COUNT NO; POSITIVE DIFFERENTIAL YES; POSITIVE MORPHOLOGY NO
[2018-10-08 13:45] LABS: Anion Gap 11 (5-15); BUN 20 mg/dL (7-18); BUN/Creat Ratio 16.3 RATIO (10-20); Calcium,Total 9.4 mg/dL (8.5-10.1); Chloride 102 mmol/L (98-107); Creatinine, Serum 1.23 mg/dL (0.70-1.30); EST Glomerular Filtration Rate 61 mL/min (>60); Est Glom Filt Rate - Afr Amer 74 mL/min (>60); Estimated Creatinine Clearance 50.01 ml/min; Glucose 139 mg/dL (74-106); Potassium 4.1 mmol/L (3.5-5.1); Sodium Level 142 mmol/L (136-145)
[2018-10-08 13:50] LABS: Differential Comment SCANNED
--- NOTE | 2018-10-08 14:10 | ED.DCSUM_ITS ---
- ER Visit Summary Date of Service: 10/08/18 Chief Complaint: Back pain History of Present Illness: The patient is a 73 M with a history of lymphoma. Patient had a PET scan and a bone marrow biopsy last week. Now for the past 1 week he has had left low back pain that radiates into his left abdomen, into his right lower back, and down his right leg. He has some old oxycodone left that he has been taking without improvement. He is taking 5 mg every 6 hours. Patient does describe his feet feeling numb whenever they are elevated, but this improves with movement and ambulation. He has not had fever or chills. The site of his bone marrow biopsy has not been erythematous or particularly sore. Physical Examination: Vital signs unremarkable. Patient sitting on the side of the bed. He is in no acute distress. Head neck examination unremarkable. Heart is regular rate and rhythm. Lungs sounds are clear. Abdomen is soft with no reproducible tenderness. Back examination reveals no midline thoracic or lumbar tenderness. He has mild tenderness of the right sciatic notch. Straight leg raise in the seated position is negative. Neuro exam reveals good strength and sensation the lower extremities. Strong distal pulses are noted. Test Results: Patient had CT abdomen pelvis with reconstruction of L spine. There is no acute inflammatory process. He does have multilevel degenerative disc disease resulting in canal and foraminal stenosis. CBC was a white count of 3.0 with hemoglobin 11.4. Chemistry studies grossly unremarkable. Emergency Department Course and Treatment: Patient was given morphine and Zofran here for pain control. I did speak with his oncologist, Dr. Ybarra. Patient will be given steroids for sciatica and will be given oxycodone 5-10 mg every 6 hours. Patient has an appointment with his oncologist tomorrow. Treatment Plan: [] Disposition: Discharge Impression: Sciatica This note was generated with [employer] dictation software. It may contain incorrect words, spelling, and punctuation that were not noted in review of the chart prior to signing ED Disposition - Plan for ED Patient: Disposition: Home or Assisted Living Instructions: ED Sciatica Prescriptions: Oxycodone [Oxyir] 1 - 2 tab PO Q6H PRN PRN #20 tablet PRN Reason: Pain Prednisone 10 mg PO DAILY #63 tablet Referrals: Karri Ybarra MD [NON-STAFF] - Keep Carla appointment
--- NOTE | 2018-10-08 14:13 | DCINST.ED_ITS ---
ED Disposition - Plan for ED Patient: Disposition: Home or Assisted Living Instructions: ED Sciatica Prescriptions: Oxycodone [Oxyir] 1 - 2 tab PO Q6H PRN PRN #20 tablet PRN Reason: Pain Prednisone 10 mg PO DAILY #63 tablet Referrals: Karri Ybarra MD [NON-STAFF] - Keep Carla appointment
[2018-10-08] MEDS: MethylPREDNISolone 125 MG/2 ML Vial IV (14:36)
[2018-10-08 14:40] VITALS: PULSE 94; RESP 16; O2SAT 97
== END 2018-10-08 14:41 | disposition home or self-care (01) ==
PROVIDERS: Emergency Provider Emergency Medicine; Family Provider Family Medicine; PCP Family Medicine
DX: M54.41 Lumbago with sciatica, right side (principal); C85.90 Non-Hodgkin lymphoma, unspecified, unspecified site; K21.9 Gastro-esophageal reflux disease without esophagitis; E11.22 Type 2 diabetes mellitus with diabetic chronic kidney disease; N18.9 Chronic kidney disease, unspecified; F32.9 Major depressive disorder, single episode, unspecified; F41.9 Anxiety disorder, unspecified; Z90.49 Acquired absence of other specified parts of digestive tract; Z79.899 Other long term (current) drug therapy; Z87.891 Personal history of nicotine dependence
CPT/HCPCS: 72131; 74176; 80048; 85025; 96374; 96375; 99283; A4216; J2405

== ENCOUNTER 2018-10-26 11:37 | Emergency (ER) | payer MEDICARE, SELFPAY ==
[2018-10-25 09:44] VITALS: BMI 23.3
[2018-10-26 11:38] VITALS: BP 145/92; PULSE 82; RESP 18; TEMP 36.8; O2SAT 98; BMI 26.3
[2018-10-26] MEDS: HYDROmorphone 1 MG/ML Syringe SC (12:23)
--- NOTE | 2018-10-26 13:31 | ED.RN ---
pt pain free at present time
[2018-10-26 13:46] VITALS: BP 130/86; PULSE 78; RESP 18; O2SAT 98
--- NOTE | 2018-10-26 14:06 | ED.DCSUM_ITS ---
- ER Visit Summary Date of Service: 10/26/18 Chief Complaint: Back pain History of Present Illness: The patient is a 73 M with right side back pain that radiates down his right leg. He had similar symptoms in the past with sciatica. He denies any new injuries or new symptoms. Denies any GI or symptoms. He has never had back surgery. Denies fevers. Denies any systemic symptoms. Denies any history of abscess. He does have a history of mantle cell lymphoma. He was seen previously for this back pain and had a CT. He is planning to follow-up with his doctor tomorrow, but could not handle the pain. Physical Examination: Afebrile and vital signs unremarkable. Patient is standing and appears uncomfortable but is otherwise nontoxic and in no acute distress. Inspection is unremarkable. Good strength and sensation. Abdomen is soft and nontender. Test Results: None performed Emergency Department Course and Treatment: Patient received a dose of subcutaneous Dilaudid. His symptoms resolved on reevaluation. Patient has tried oxycodone at home. He is also on prednisone. He has tried lidocaine, physical therapy. He said he has been evaluated by surgery in the past and was told he was not a candidate. He is requesting referral to pain management. He was advised to follow-up as an outpatient. Treatment Plan: As above Disposition: Discharge Impression: 1. Right sciatica This note was generated with [employer] dictation software. It may contain incorrect words, spelling, and punctuation that were not noted in review of the chart prior to signing ED Disposition - Plan for ED Patient: Referrals: Rolando Burgos DO [Primary Care Provider] -
--- NOTE | 2018-10-26 14:06 | ED.DEP ---
ED Disposition - Plan for ED Patient: Instructions: ED Sciatica Prescriptions: Oxycodone [Oxyir] 5 mg PO Q6H PRN PRN 3 Days #12 tab PRN Reason: Pain Referrals: Jarett Anaya MD [STAFF PHYSICIAN] -
[2018-10-26 14:11] VITALS: BP 140/89; PULSE 89; RESP 18; O2SAT 99
[2018-10-26 14:16] VITALS: BP 140/89; PULSE 74; RESP 18; O2SAT 99
== END 2018-10-26 14:16 | disposition home or self-care (01) ==
PROVIDERS: Emergency Provider Emergency Medicine; Family Provider Family Medicine; PCP Family Medicine
DX: M54.31 Sciatica, right side (principal); I12.9 Hypertensive chronic kidney disease with stage 1 through stage 4 chronic kidney disease, or unspecified chronic kidney disease; E11.22 Type 2 diabetes mellitus with diabetic chronic kidney disease; N18.9 Chronic kidney disease, unspecified; K21.9 Gastro-esophageal reflux disease without esophagitis; Z79.891 Long term (current) use of opiate analgesic; Z79.52 Long term (current) use of systemic steroids; Z79.899 Other long term (current) drug therapy; Z85.72 Personal history of non-Hodgkin lymphomas; Z87.891 Personal history of nicotine dependence
CPT/HCPCS: 96372; 99283

== ENCOUNTER 2018-10-27 02:37 | Observation (INO) | payer MEDICARE, SELFPAY ==
[2018-10-26 11:38] VITALS: BMI 26.3
[2018-10-27] VITALS (7 sets, daily range): BP systolic 98–145; BP diastolic 64–97; PULSE 78–99; RESP 14–18; TEMP 36.5–37.4; O2SAT 97–100; BMI 24.7; BMI 24.3; BMI 24.4
[2018-10-27] MEDS: HYDROmorphone 1 MG/ML Syringe IV (03:09)
[2018-10-27] MEDS: Ondansetron 4 MG/2 ML Vial IV (03:09)
[2018-10-27 03:29] LABS: Absolute Lymphocyte Count 0.34 X10^3/ul (0.83-4.51); Absolute Neutrophil Count 0.7 X10^3/uL (2.0-7.7); Basophil# 0.01 X10^3/uL; Basophil% 0.7 % (0-1); Eosinophil# 0.11 X10^3/uL; Eosinophils% 7.6 % (0-5); Hematocrit 38.7 % (40-54); Lymphocyte # 0.34 X10^3/ul (4.0); Lymphocyte % 23.6 % (19-41); Mean Corp Hgb Conc 33.6 g/gl (32-36); Mean Corpuscular Hgb 33.9 pg (27.0-32.0); Mean Corpuscular Volume 100.8 fL (80-94); Monocyte# 0.24 X10^3/uL; Monocyte% 16.7 % (0-10); Neutrophil # 0.71 X10^3/uL (2.7-7.7); Neutrophil % 49.3 % (47-70); Platelet Count 148 K/mm3 (150-450); RBC Distribution Width CV 13.6 % (11.6-14.6); RBC Distribution Width SD 49.2 fl (35.1-43.9); Red Blood Count 3.84 M/mm3 (4.6-6.2)
[2018-10-27 03:32] LABS: Differential Indicated SCAN CRITERIA MET; POSITIVE COUNT YES; POSITIVE DIFFERENTIAL YES; POSITIVE MORPHOLOGY YES; White Blood Count 1.4 K/mm3 (4.4-11.0)
[2018-10-27 03:37] LABS: Anion Gap 15 (5-15); BUN 20 mg/dL (7-18); BUN/Creat Ratio 18.2 RATIO (10-20); Calcium,Total 9.3 mg/dL (8.5-10.1); Chloride 86 mmol/L (98-107); EST Glomerular Filtration Rate 70 mL/min (>60); Est Glom Filt Rate - Afr Amer 84 mL/min (>60); Estimated Creatinine Clearance 55.92 ml/min; Glucose 234 mg/dL (74-106); Sodium Level 129 mmol/L (136-145)
--- NOTE | 2018-10-27 04:07 | ED.DCSUM_ITS ---
- ER Visit Summary Date of Service: 10/27/18 Chief Complaint: [] Back pain with radiation to his leg History of Present Illness: The patient is a 73 M patient's third visit to the ER for back pain. Over the last 3 weeks is really flared up. Is been on and off for the last 2 years. It is a burning and deep aching pain in his lower back that radiates down the back of his right leg. No loss of bowel or bladder function. He was seen on the of this month and had a lumbar CAT scan and CT abdomen pelvis that showed multilevel DJD with foraminal stenosis. Labs were done. He was given steroids and oxycodone which did not help. He suffered to the pain for 18 days and came back to the emergency department last night. He was given Dilaudid. He was given a referral to pain management. He has an appointment with his family doctor tomorrow but stated the pain is so severe that he cannot wait. He is tried lidocaine patches as well. He had a recent PET scan and bone marrow biopsy 3 weeks ago before this exacerbation started. He stated the results were good. He finished the steroids and they cause no relief. His last oxycodone was at 1030 last night. He has seen surgeons in the past for multilevel disc disease. This was 10 years ago however. He is never had surgery on his back. Physical Examination: [] Vital signs reviewed General: Well-nourished well-developed Head: Normocephalic atraumatic Eyes: Pupils equal round and reactive to light extraocular movements intact ENT: TMs clear no hemotympanum no trauma Neck: Nontender full range of motion Cardiovascular: Regular rate rhythm no murmurs normal S1-S2 Respiratory: No distress clear to auscultation bilaterally chest nontender Abdomen: Soft nontender nondistended normal bowel sounds no masses Back: This in the lower back diffusely main in the central and right region. No swelling or deformity. Decreased range of motion secondary to pain. Extremities: Straight leg raise on the right causing worsening of his pain. Skin: Normal color no trauma Neuro alert oriented cranial nerves II through XII intact normal strength sensation reflexes Test Results: [] Emergency Department Course and Treatment: [] Lab work obtained. Sodium is 129 down from 135. Chloride is 86. CBC is normal except a white count of 1.4 down from 1.5. The patient does have mantle cell lymphoma and is on maintenance chemotherapy oral medication. Platelets are 148 which is chronically low for the patient. I discussed outpatient continued treatment with the patient. He is very much against this given the fact that he is having intractable pain and had to come back to the ER less than 24 hours after just being discharged. He is having severe pain. He is unable to cope with this his pain at home and cannot get control of it with oral oxycodone narcotic pain medicine. He is requesting admission Treatment Plan: [] Disposition: [] Impression: [] Intractable back pain with radiculopathy Mantle cell lymphoma Hyponatremia This note was generated with [employer] dictation software. It may contain incorrect words, spelling, and punctuation that were not noted in review of the chart niki or to signing ED Disposition - Plan for ED Patient: Referrals: Rolando Burgos DO [Primary Care Provider] -
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
--- NOTE | 2018-10-27 05:05 | MRI_ITS ---
STUDY: MRI LUMBAR SPINE WITHOUT CONTRAST REASON FOR EXAM: Male, 73 years old. Low back pain with radiculopathy. TECHNIQUE: Standardized fat and water weighted pulse sequences were obtained in the sagittal and axial planes. COMPARISON: CT of the lumbar spine dated October 08, 2018. FINDINGS: T12-L1: Normal endplates. Normal disc height, signal and morphology. Normal bilateral facet joints. Normal central canal and bilateral lateral recesses. Normal bilateral intervertebral neural foramina. There is straightening of the normal lumbar lordosis. There is mild retrolisthesis at L4-5 and grade 1 anterolisthesis at L5-S1. There appears to be spondylolysis of L5. There is no substantial scoliosis. Normal conus medullaris that terminates at the T12-L1 level. L1-2: There is narrowing of the disc with irregular endplates. There appears to be a focal left central disc protrusion. There is moderate annular disc bulge and osteophyte complex. Neural foramina are moderately narrowed, greater on the left than right without definite nerve impingement. There is mild degenerative arthropathy of the facet joints. There is mild degenerative arthropathy of the facet joints. L2-3: There is narrowing of the disc. There is moderate annular disk bulge and osteophyte complex. There is mild degenerative arthropathy of the facet joints. Bilateral neuroforamina are narrowed without MR evidence for nerve impingement. There is mild significant acquired central canal stenosis. L3-4: There is narrowing of the distal vacuum disc phenomenon. There is moderate annular disc bulge and osteophyte complex. Neural foramina are moderately narrowed, right greater than left. There is moderate degenerative arthropathy of the facet joints and thickening of the ligamentum flavum. L4-5: There is severe narrowing of this disc with vacuum disc phenomenon. There is an annular disc bulge and osteophyte complex. There is mild degenerative arthropathy of facet joints. Neural foramina are narrowed, severely on the left with potential impingement of the left L4 nerve root. There is no significant central acquired canal stenosis. L5-S1: There is uncovering of the disc related to the anterolisthesis. There is moderate degenerative arthropathy of the facet joints. There is mild central acquired canal stenosis. The neural foramina are severely narrowed with probable impingement of bilateral L5 nerve roots of the neural foramina. There are multiple foci of abnormal signal within the marrow of all the imaged thoracic and lumbar vertebral bodies likely related to patient's non-Hodgkin's lymphoma. There is also abnormal signal within the sacrum and visualized iliac wings probably related to patient's lymphoma. Normal visualized paraspinous soft tissue structures. MRI/Spine Lumbar (Routine) IMPRESSION: 1. Moderately severe multilevel degenerative disc disease and degenerative arthropathy of the lumbar spine with acquired canal stenosis, neural foraminal narrowing and potential nerve impingement, as described. 2. Extensive abnormal signal within the marrow probably related to patient's known lymphoma. 3. Grade 1 spondylolisthesis at L5-S1 and retrolisthesis at L4-5. Electronically Signed: Nona Pereira MD at 10:46 EST , Service support ,
[2018-10-27 07:25] LABS: Absolute Lymphocyte Count 0.27 X10^3/ul (0.83-4.51); Absolute Neutrophil Count 0.6 X10^3/uL (2.0-7.7); Basophil# 0.01 X10^3/uL; Basophil% 0.8 % (0-1); Eosinophil# 0.09 X10^3/uL; Hematocrit 31.5 % (40-54); Hemoglobin 10.5 g/dl (13.0-16.5); Lymphocyte # 0.27 X10^3/ul (4.0); Lymphocyte % 21.1 % (19-41); Mean Corp Hgb Conc 33.3 g/gl (32-36); Mean Corpuscular Volume 101.9 fL (80-94); Mean Platelet Vol. 8.8 fl (6.2-12.0); Monocyte# 0.34 X10^3/uL; Monocyte% 26.6 % (0-10); Neutrophil # 0.55 X10^3/uL (2.7-7.7); Neutrophil % 42.9 % (47-70); Platelet Count 121 K/mm3 (150-450); RBC Distribution Width CV 13.4 % (11.6-14.6); RBC Distribution Width SD 48.9 fl (35.1-43.9); Red Blood Count 3.09 M/mm3 (4.6-6.2)
[2018-10-27 07:28] LABS: Differential Indicated SCAN CRITERIA MET; POSITIVE COUNT YES; POSITIVE DIFFERENTIAL YES; POSITIVE MORPHOLOGY NO; White Blood Count 1.3 K/mm3 (4.4-11.0)
[2018-10-27] MEDS: predniSONE 20 MG Tablet 40 MG PO (07:52)
[2018-10-27] MEDS: HYDROmorphone 0.5 MG/0.5 ML SYRINGE IV (07:52)
[2018-10-27] MEDS: Docusate Sodium 100 MG Capsule PO ×2 (07:52→20:25)
--- NOTE | 2018-10-27 08:10 | PCM.PN.BLA ---
Progress Note The patient is a 73-year-old male with a past medical history of mantle cell lymphoma(recent BM bx wuith no evidence myeloproliferative disease), diabetes mellitus type 2, GERD, chronic renal failure, anxiety, hyperlipidemia, hypertension and chronic back pain who has been seen in the emergency department 3 times since 10/08/2018 complaining of severe back pain. On 10/08/2018 he was seen by Dr. Chaves in the ED and was prescribed OxyIR and prednisone 10 mg daily, #[address] scan of the lumbar spine on 10/08/2018 showed worsening of multilevel degenerative disc disease with retrolisthesis at L4-5 and anterolisthesis at L5-S1. There was foraminal stenosis at multiple levels and canal stenosis. When compared to an MRI done in 2013 there had been progressive disease. There was no evidence of any compression fractures or destructive bony processes. On 10/26/2018 he was seen by Dr. Carl in the emergency department and complained of back pain radiating down his right leg. He was treated with a dose of Dilaudid which helped him and he was sent home. He was still on prednisone at the time. He returned to the emergency department on 10/27/2018 at 4 AM in the morning and was seen by Dr. Aviles and stated the pain was so bad that he had been unable to ambulate. The patient requested inpatient admission for pain management. He was admitted to the hospital and started on Prednisone 40 mg daily. Dilaudid and Oxy IR were ordered PRN. An MRI of the lumbar spine was ordered. He tells me that the steroids resolved the pain in the Leg but when they were stopped the pain started up on the Right leg. The pain radiates down the posterior thigh and posterior calf. states that he has had difficulty walking due to pain. Has not fallen but his gait is somewhat unsteady. He has numbness in both feet. He denies any fecal or urinary incontinence. HE has increased pain when lying on his back at night and with ambulation. Today he has felt better and he has only taken Dilaudid once and not any Oxy IR. He was seen at the [facility] many years ago and was told at the time that he was not a candidate for surgery at that time for a herniated disc. + SLR on the R at 60 degrees - Kumar's BL 5/5 strength in both LE's and in the feet He is forgetful and his tells me that this has been getting gradually worse. He had Rituxan Tuesday and to sit for a very long time which likely exacerbated his chronic pain Impressions 1. chronic back pain with recent exacerbation with radicular pain initially down the left leg and now the right. Good strength 2. hx of Hodgkin's lymphoma-now receiving Rituxan every 8 weeks 3. Pancytopenia with new Leukopenia-likely secondary to Rituxan on 10/25/2018 4. DM II 5. Hyponatremia 6. GERD 7. Chronic renal failure stage III 8. Anxiety 9. Hyperlipidemia 10. Hypertension 11. dementia? will check a TSH, B12, ammonia now.....needs a CTB at some point. Initiate reverse isolation Consult Dr. Obrien for pain management Add Gabapentin Since he had improvement with the Prednisone he may benefit from an epidural. CMP, CBC with differential, mag and fossa in the a.m. Continue prednisone 40 mg daily
[2018-10-27 08:28] LABS: Platelet Estimate SLT DEC (ADEQ)
[2018-10-27] MEDS: Sertraline 50 MG Tablet PO (11:02)
[2018-10-27] MEDS: Enoxaparin 40 MG/0.4 ML Syringe SC (11:02)
[2018-10-27] MEDS: Gabapentin 100 MG Capsule 200 MG PO ×2 (11:09→17:20)
[2018-10-27] MEDS: Pantoprazole Sodium 20 MG Tablet PO (11:09)
--- NOTE | 2018-10-27 12:10 | CASEMGMT ---
MORENA RODRIGUEZ Face to Face with patient for initial transition planning/care coordination assessment. MORENA RODRIGUEZ introduced self and role at [facility]. Patient sitting on edge of bed, alert and oriented, trouble remembering names of doctors. Patient willing to participate in assessment and is able to answer all questions appropriately. Care providers, pharmacy, and demographics verified. Patient wishes to discharge home and states he will follow up with PCP for therapy. Patient states he works out at a facility in [place]. Patient states he has no further needs or concerns at this time. CM to follow for discharge planning needs that may arise. PCP: Loretta Specialists: Patient could not recall doctor's name Preferred Pharmacy: [facility] Insurance: Zhilian [employer] Prescription Benefit: Yes Living Will/HPOA: Yes, Nelly Hannon HPOA LNOK: Living Arrangements: Patient states that he lives in 1 story home with no steps to enter the home. Patient states that he is independent at home. Transportation: Self/ DME/HHC: Patient states he has a walker but doesn't use it. Patient denies need for HHC/SNF and denies previous services. Disposition Plan: Patient to discharge home with family support and follow-up plans in place. Patient states he will follow-up with his doctor regarding therapy. Felecia ROMERO, RN, CM
[2018-10-27 13:18] LABS: Pathologist Review Reviewed
[2018-10-27 13:20] LABS: Pathologist Review Reviewed
--- NOTE | 2018-10-27 19:34 | PCM.CONS.GEN ---
Problem List (1) Spinal stenosis of lumbar region with neurogenic claudication Status: Acute (2) Other intervertebral disc degeneration, lumbar region Status: Acute (3) Other intervertebral disc displacement, lumbar region Status: Acute (4) Radiculopathy of lumbar region Status: Acute (5) Intervertebral disc stenosis of neural canal of lumbar region Status: Acute (6) History of non-Hodgkin's lymphoma Status: Chronic (7) Mantle cell lymphoma Status: Chronic Qualifiers: Lymphoma site: unspecified region Qualified Code(s): C83.10 - Mantle cell lymphoma, unspecified site (8) Lumbago of lumbar region with sciatica Status: Acute Reason for Consult Date of Consultation: 10/27/18 History of Present Illness: The patient is a 73 year old Male presented with severe lower back and right leg pain, patient stated the pain has started for past several months as, patient stated that has been having hard time walking sleeping and battling with this pain for the past 2 months. Patient has CAT scan done earlier this month showed multilevel degenerative disease and spinal stenosis was no evidence of compression fracture. Patient was seen at the ER couple times and has evaluated and treated with conservative treatment including pain medication injection as well as muscle relaxant and medical pain therapy. Patient return to the hospital as having severe increasing pain, affecting his ability to function independently at home, he was supposed to be having a follow-up with his primary care however was came here because of the increasing pain. Patient has an MRI lumbar spine that was done earlier this morning and noted results as severe multilevel degenerative disc disease with foraminal stenosis and spinal stenosis affecting multiple levels, multilevels facet hypertrophy and ligamentum flavum hypertrophy, bone marrow changes due to his history of lymphoma. Patient was given 0.5 m Dilaudid early this morning which was controlled the pain also he has been given steroids in addition also he was given gabapentin which seemed to be controlling his pain. Patient denies any issue with bladder or bowel control issue, he reported the pain causing some weakness with gait however he is able to function and walk around with no evidence of falling. [] Past Medical History Past Medical History (Chronic Problems): Chronic Problems (Last Reviewed 10/27/18 @ 19:39 by Jessica Obrien MD) History of non-Hodgkin's lymphoma (Chronic) Mantle cell lymphoma (Chronic) Medical History: Medical History (Last Reviewed 10/27/18 @ 19:39 by Jessica Obrien MD) Diabetes E11.9 GERD (gastroesophageal reflux disease) K21.9 Sciatica M54.30 CKD (chronic kidney disease) N18.9 Anxiety F41.9 Hyperlipidemia E78.5 Lymphoma C85.90 mantel cell lymphoma Hypertension I10 Allergies Cpiheol-Xxf-Vtr Reductase Inhibitor Allergy (Verified 10/27/18 02:40) Other dextromethorphan Adverse Reaction (Severe, Verified 10/26/18 11:40) Unknown duloxetine [From Cymbalta] Adverse Reaction (Severe, Verified 10/26/18 11:40) Other difficulty sleeping quetiapine [From Seroquel] Adverse Reaction (Severe, Verified 10/26/18 11:40) Other difficulty sleeping Home Medications: Ambulatory Orders Medication Instructions Recorded Omeprazole [Prilosec] 20 mg PO DAILY 11/24/16 Ergocalciferol [Vitamin D] 50,000 unit PO Q7D 06/12/18 Sertraline HCl [Zoloft] 50 mg PO DAILY 09/26/18 Oxycodone [Oxyir] 1 - 2 tab PO Q6H PRN PRN #20 tablet 10/08/18 Surgical History: Surgical History (Last Reviewed 10/27/18 @ 19:39 by Jessica Obrien MD) History of bone marrow biopsy Z98.890 [facility] History of myringotomy Z98.890 Hx of cholecystectomy Z90.49 Smoking Status: Former smoker - *Family History Maternal Family History: Family History (Last Reviewed 10/27/18 @ 19:39 by Jessica Obrien MD) Father Heart disease Diabetes Mother Heart disease Diabetes Review of Systems Constitutional: Reports: Weakness Eyes: Reports: Pain HEENT: Denies: Head Aches, Sinus Congestion, Sinus Drainage Cardiovascular: Denies: Chest Pain, Palpitations Respiratory: Denies: Cough, Shortness of breath at rest, Sputum production Gastrointestinal: Denies: Abdominal Pain, Nausea, Vomiting Genitourinary: Denies: Dysuria Musculoskeletal: Reports: Back Pain, Leg Pain, Muscle pain Skin: Denies: Rash, Wounds Neurological: Reports: Balance problems, Numbness, Tingling Psychiatric: Denies: Anxiety, Depression, Homicidal Ideations, Suicidal Ideations Hematologic/ Lymphatic: Reports: Adenopathy - History of current lymphoma Patient Problems: Active and Suspected Problems (Last Reviewed 10/27/18 @ 19:39 by Jessica Obrien MD) Chemotherapy management, encounter for (Acute) Lumbago of lumbar region with sciatica (Acute) Spinal stenosis of lumbar region with neurogenic claudication (Acute) Other intervertebral disc degeneration, lumbar region (Acute) Other intervertebral disc displacement, lumbar region (Acute) Radiculopathy of lumbar region (Acute) Intervertebral disc stenosis of neural canal of lumbar region (Acute) - Physical Exam General: Alert, Oriented x3, Cooperative, Well developed, Well nourished, Lethargic HEENT: Atraumatic, PERRLA, EOMI, Normocephalic Oral: Moist Mucosa Neck: Supple, No JVD, No Nodes, Thyroid Normal Size and Texture Lungs: Clear to auscultation, Normal air movement, No rhonchi, No wheeze, No rales Cardiovascular: Regular rate, Regular Rhythm Abdomen: Bowel Sounds Present, Soft, Non Tender, Non-Distended, No Hepato-splenomegaly Extremities: No clubbing, No cyanosis, No edema Skin: No rashes, No breakdown Musculoskeletal: Arthritic Changes, Tenderness - Patient has positive tenderness across the lower lumbosacral spine mostly on the right side, positive straight leg raise sign on the right. Motor and sensory appears to be symmetrical bilateral lower extremity Coordination is intact Gait is normal Lymphatic: No Cervical, Supraclavicular, or Inguinal Adenopathy, Cervical Adenopathy Neurological: Cranial nerves II-XII grossly intact, Deep Tendon Reflexes 2+/4 and Symmetrical, Neuro grossly intact, Motor Exam 5/5 strength throughout Psych/Mental Status: Normal Affect, Flat Affect Vital Signs Temp Pulse Resp BP Pulse Ox 98.3 F 86 14 145/97 H 97 10/27/18 15:00 10/27/18 15:00 10/27/18 15:00 10/27/18 15:00 10/27/18 15:00 Oxygen Delivery Method Room Air Weight: 71.7 kg Body Mass Index (BMI) 24.3 Intake and Output for Last 24 Hours 10/25/18 10/26/18 10/27/18 23:59 23:59 23:59 Intake Total 46 / 46 Balance 46 / 46 Laboratory Tests Past 24 Hrs 10/27/18 10/27/18 10/27/18 03:10 03:10 06:56 WBC 1.4 L* 1.3 L* Corrected WBC MARKETING DESIGNER RBC 3.84 L 3.09 L Hgb 13.0 10.5 L Hct 38.7 L 31.5 L MCV 100.8 H 101.9 H MCH 33.9 H 34.0 H MCHC 33.6 33.3 RDW 13.6 13.4 RDW Differential 49.2 H 48.9 H Plt Count 148 L 121 L MPV 9.0 8.8 Immature Gran % (Auto) 2.100 H 1.600 H Neut % (Auto) 49.3 42.9 L Lymph % (Auto) 23.6 21.1 Beckham % (Auto) 16.7 H 26.6 H Eos % (Auto) 7.6 H 7.0 H Baso % (Auto) 0.7 0.8 Absolute Neuts (auto) 0.7 L 0.6 L Absolute Lymphs (auto) 0.34 L 0.27 L Total Counted Not Reportable Not Reportable Neutrophils % (Manual) MARKETING DESIGNER Band Neutrophils % MARKETING DESIGNER Lymphocytes % (Manual) MARKETING DESIGNER Monocytes % (Manual) MARKETING DESIGNER Eosinophils % (Manual) MARKETING DESIGNER Basophils % (Manual) MARKETING DESIGNER Metamyelocytes % MARKETING DESIGNER Myelocytes % MARKETING DESIGNER Promyelocytes % MARKETING DESIGNER Blast Cells % MARKETING DESIGNER Plasma Cell % (Manual) MARKETING DESIGNER Other Cells % MARKETING DESIGNER Nucleated RBCs/100 WBC MARKETING DESIGNER Differential Comment MARKETING DESIGNER Diff Path Review Reviewed Reviewed Hypersegmented Neuts MARKETING DESIGNER Atypical Lymphocytes MARKETING DESIGNER Reactive Lymphocytes MARKETING DESIGNER Smudge Cells MARKETING DESIGNER Toxic Granulation MARKETING DESIGNER Dohle Bodies MARKETING DESIGNER Fab Rods MARKETING DESIGNER Platelet Estimate SLT DEC Plt Morphology Comment MARKETING DESIGNER RBC Morphology MARKETING DESIGNER Polychromasia MARKETING DESIGNER Hypochromasia MARKETING DESIGNER Poikilocytosis MARKETING DESIGNER Basophilic Stippling MARKETING DESIGNER Anisocytosis MARKETING DESIGNER Microcytosis MARKETING DESIGNER Macrocytosis MARKETING DESIGNER Spherocytes MARKETING DESIGNER Sickle Cells MARKETING DESIGNER Target Cells MARKETING DESIGNER Tear Drop Cells MARKETING DESIGNER Ovalocytes MARKETING DESIGNER Stomatocytes MARKETING DESIGNER [place] Bodies MARKETING DESIGNER Manolo Cells MARKETING DESIGNER Bite Cells MARKETING DESIGNER Acanthocytes (Spur) MARKETING DESIGNER Rouleaux MARKETING DESIGNER Schistocytes MARKETING DESIGNER Sodium 129 L Potassium 4.0 Chloride 86 L Carbon Dioxide 28.0 Anion Gap 15 BUN 20 H Creatinine 1.10 Estim Creat Clear Calc 55.92 Est GFR (MDRD) Af Amer 84 Est GFR (MDRD) Non-Af 70 BUN/Creatinine Ratio 18.2 Glucose 234 H Calcium 9.3 Assessment/Plan All Active Problems (Last Reviewed 10/27/18 @ 19:39 by Jessica Obrien MD) Chemotherapy management, encounter for (Acute) Lumbago of lumbar region with sciatica (Acute) Spinal stenosis of lumbar region with neurogenic claudication (Acute) Other intervertebral disc degeneration, lumbar region (Acute) Other intervertebral disc displacement, lumbar region (Acute) Radiculopathy of lumbar region (Acute) Intervertebral disc stenosis of neural canal of lumbar region (Acute) MRI reviewed noted as: [facility] Imaging Services [address] [place] [address] Spine Lumbar (Routine) MR#: [id number] Acct: [id number] Name: LEXI DICKINSON Rep #: [id number] : 1945 M 73 From: Nona Pereira MD PCP: Rolando Burgos DO Status: ADM PHIL Study: Spine Lumbar (Routine) Date of Exam: 10/27/18 Exam# [id number] Ordering Dr: Roderick Najera DO STUDY: MRI LUMBAR SPINE WITHOUT CONTRAST REASON FOR EXAM: Male, 73 years old. Low back pain with radiculopathy. TECHNIQUE: Standardized fat and water weighted pulse sequences were obtained in the sagittal and axial planes. COMPARISON: CT of the lumbar spine dated October 08, 2018. FINDINGS: T12-L1: Normal endplates. Normal disc height, signal and morphology. Normal bilateral facet joints. Normal central canal and bilateral lateral recesses. Normal bilateral intervertebral neural foramina. There is straightening of the normal lumbar lordosis. There is mild retrolisthesis at L4-5 and grade 1 anterolisthesis at L5-S1. There appears to be spondylolysis of L5. There is no substantial scoliosis. Normal conus medullaris that terminates at the T12-L1 level. L1-2: There is narrowing of the disc with irregular endplates. There appears to be a focal left central disc protrusion. There is moderate annular disc bulge and osteophyte complex. Neural foramina are moderately narrowed, greater on the left than right without definite nerve impingement. There is mild degenerative arthropathy of the facet joints. There is mild degenerative arthropathy of the facet joints. L2-3: There is narrowing of the disc. There is moderate annular disk bulge and osteophyte complex. There is mild degenerative arthropathy of the facet joints. Bilateral neuroforamina are narrowed without MR evidence for nerve impingement. There is mild significant acquired central canal stenosis. L3-4: There is narrowing of the distal vacuum disc phenomenon. There is moderate annular disc bulge and osteophyte complex. Neural foramina are moderately narrowed, right greater than left. There is moderate degenerative arthropathy of the facet joints and thickening of the ligamentum flavum. L4-5: There is severe narrowing of this disc with vacuum disc phenomenon. There is an annular disc bulge and osteophyte complex. There is mild degenerative arthropathy of facet joints. Neural foramina are narrowed, severely on the left with potential impingement of the left L4 nerve root. There is no significant central acquired canal stenosis. L5-S1: There is uncovering of the disc related to the anterolisthesis. There is moderate degenerative arthropathy of the facet joints. There is mild central acquired canal stenosis. The neural foramina are severely narrowed with probable impingement of bilateral L5 nerve roots of the neural foramina. There are multiple foci of abnormal signal within the marrow of all the imaged thoracic and lumbar vertebral bodies likely related to patient's non-Hodgkin's lymphoma. There is also abnormal signal within the sacrum and visualized iliac wings probably related to patient's lymphoma. Normal visualized paraspinous soft tissue structures. MRI/Spine Lumbar (Routine) IMPRESSION: 1. Moderately severe multilevel degenerative disc disease and degenerative arthropathy of the lumbar spine with acquired canal stenosis, neural foraminal narrowing and potential nerve impingement, as described. 2. Extensive abnormal signal within the marrow probably related to patient's known lymphoma. 3. Grade 1 spondylolisthesis at L5-S1 and retrolisthesis at L4-5. Patient reviewed, reviewed CAT scan and MRI, noted no evidence of compression fracture, patient is complaining of neurogenic claudication due to his severe lumbar spinal stenosis, Patient has positive fever response after receiving steroids/prednisone 40 mg daily as well as started on gabapentin which has been controlling his radiculopathy on the right leg, patient also seemed not requiring a lot of pain medication. I have discussed with patient to follow-up with his oncology regarding the bone marrow changes to consider treatment if necessary for his current active cancer treatment. Will recommend to continue Neurontin and increase the dose to 300 mg 3 times daily, will send patient home with a prescription for Neurontin to continue. Recommend to continue titrating lower dose of prednisone to 20 mg daily Recommend short course possible oxycodone or Ultram for pain for 3 days I discussed with patient and recommend to be seen in the pain management office on Tuesday or Tuesday to receive lumbar epidural steroid injection at the level of the L4-5 to provide some more relief for his intractable back pain and lower extremity radiculopathy Would recommend to start physical therapy evaluation treatment as an outpatient Patient was given the number and contact for to contact his office on Tuesday to start treatment plan Discussed risk benefits alternatives of the treatment plan as recommended Patient seems to be stable from pain management standpoint to discharge home and follow-up as an outpatient on Tuesday in the office Thank you for consulting me for patient care please contact me if any question concern about above recommendations Code Visit Inpatient E&M: 50312 Init Hosp L3
--- NOTE | 2018-10-27 19:39 | CON.PCM_ITS ---
Problem List (1) Spinal stenosis of lumbar region with neurogenic claudication Status: Acute (2) Other intervertebral disc degeneration, lumbar region Status: Acute (3) Other intervertebral disc displacement, lumbar region Status: Acute (4) Radiculopathy of lumbar region Status: Acute (5) Intervertebral disc stenosis of neural canal of lumbar region Status: Acute (6) History of non-Hodgkin's lymphoma Status: Chronic (7) Mantle cell lymphoma Status: Chronic Qualifiers: Lymphoma site: unspecified region Qualified Code(s): C83.10 - Mantle cell lymphoma, unspecified site (8) Lumbago of lumbar region with sciatica Status: Acute Reason for Consult Date of Consultation: 10/27/18 History of Present Illness: The patient is a 73 year old Male presented with severe lower back and right leg pain, patient stated the pain has started for past several months as, patient stated that has been having hard time walking sleeping and battling with this pain for the past 2 months. Patient has CAT scan done earlier this month showed multilevel degenerative disease and spinal stenosis was no evidence of compression fracture. Patient was seen at the ER couple times and has evaluated and treated with conservative treatment including pain medication injection as well as muscle relaxant and medical pain therapy. Patient return to the hospital as having severe increasing pain, affecting his ability to function independently at home, he was supposed to be having a follow-up with his primary care however was came here because of the increasing pain. Patient has an MRI lumbar spine that was done earlier this morning and noted results as severe multilevel degenerative disc disease with foraminal stenosis and spinal stenosis affecting multiple levels, multilevels facet hypertrophy and ligamentum flavum hypertrophy, bone marrow changes due to his history of lymphoma. Patient was given 0.5 m Dilaudid early this morning which was controlled the pain also he has been given steroids in addition also he was given gabapentin which seemed to be controlling his pain. Patient denies any issue with bladder or bowel control issue, he reported the pain causing some weakness with gait however he is able to function and walk around with no evidence of falling. [] Past Medical History Past Medical History (Chronic Problems): Chronic Problems (Last Reviewed 10/27/18 @ 19:39 by Jessica Obrien MD) History of non-Hodgkin's lymphoma (Chronic) Mantle cell lymphoma (Chronic) Medical History: Medical History (Last Reviewed 10/27/18 @ 19:39 by Jessica Obrien MD) Diabetes E11.9 GERD (gastroesophageal reflux disease) K21.9 Sciatica M54.30 CKD (chronic kidney disease) N18.9 Anxiety F41.9 Hyperlipidemia E78.5 Lymphoma C85.90 mantel cell lymphoma Hypertension I10 Allergies Nhvciqq-Ruo-Sbm Reductase Inhibitor Allergy (Verified 10/27/18 02:40) Other dextromethorphan Adverse Reaction (Severe, Verified 10/26/18 11:40) Unknown duloxetine [From Cymbalta] Adverse Reaction (Severe, Verified 10/26/18 11:40) Other difficulty sleeping quetiapine [From Seroquel] Adverse Reaction (Severe, Verified 10/26/18 11:40) Other difficulty sleeping Home Medications: Ambulatory Orders Medication Instructions Recorded Omeprazole [Prilosec] 20 mg PO DAILY 11/24/16 Ergocalciferol [Vitamin D] 50,000 unit PO Q7D 06/12/18 Sertraline HCl [Zoloft] 50 mg PO DAILY 09/26/18 Oxycodone [Oxyir] 1 - 2 tab PO Q6H PRN PRN #20 tablet 10/08/18 Surgical History: Surgical History (Last Reviewed 10/27/18 @ 19:39 by Jessica Obrien MD) History of bone marrow biopsy Z98.890 [facility] History of myringotomy Z98.890 Hx of cholecystectomy Z90.49 Smoking Status: Former smoker - *Family History Maternal Family History: Family History (Last Reviewed 10/27/18 @ 19:39 by Jessica Obrien MD) Father Heart disease Diabetes Mother Heart disease Diabetes Review of Systems Constitutional: Reports: Weakness Eyes: Reports: Pain HEENT: Denies: Head Aches, Sinus Congestion, Sinus Drainage Cardiovascular: Denies: Chest Pain, Palpitations Respiratory: Denies: Cough, Shortness of breath at rest, Sputum production Gastrointestinal: Denies: Abdominal Pain, Nausea, Vomiting Genitourinary: Denies: Dysuria Musculoskeletal: Reports: Back Pain, Leg Pain, Muscle pain Skin: Denies: Rash, Wounds Neurological: Reports: Balance problems, Numbness, Tingling Psychiatric: Denies: Anxiety, Depression, Homicidal Ideations, Suicidal Ideations Hematologic/ Lymphatic: Reports: Adenopathy - History of current lymphoma Patient Problems: Active and Suspected Problems (Last Reviewed 10/27/18 @ 19:39 by Jessica Obrien MD) Chemotherapy management, encounter for (Acute) Lumbago of lumbar region with sciatica (Acute) Spinal stenosis of lumbar region with neurogenic claudication (Acute) Other intervertebral disc degeneration, lumbar region (Acute) Other intervertebral disc displacement, lumbar region (Acute) Radiculopathy of lumbar region (Acute) Intervertebral disc stenosis of neural canal of lumbar region (Acute) - Physical Exam General: Alert, Oriented x3, Cooperative, Well developed, Well nourished, Lethargic HEENT: Atraumatic, PERRLA, EOMI, Normocephalic Oral: Moist Mucosa Neck: Supple, No JVD, No Nodes, Thyroid Normal Size and Texture Lungs: Clear to auscultation, Normal air movement, No rhonchi, No wheeze, No rales Cardiovascular: Regular rate, Regular Rhythm Abdomen: Bowel Sounds Present, Soft, Non Tender, Non-Distended, No Hepato-splenomegaly Extremities: No clubbing, No cyanosis, No edema Skin: No rashes, No breakdown Musculoskeletal: Arthritic Changes, Tenderness - Patient has positive tenderness across the lower lumbosacral spine mostly on the right side, positive straight leg raise sign on the right. Motor and sensory appears to be symmetrical bilateral lower extremity Coordination is intact Gait is normal Lymphatic: No Cervical, Supraclavicular, or Inguinal Adenopathy, Cervical Adenopathy Neurological: Cranial nerves II-XII grossly intact, Deep Tendon Reflexes 2+/4 and Symmetrical, Neuro grossly intact, Motor Exam 5/5 strength throughout Psych/Mental Status: Normal Affect, Flat Affect Vital Signs Temp Pulse Resp BP Pulse Ox 98.3 F 86 14 145/97 H 97 10/27/18 15:00 10/27/18 15:00 10/27/18 15:00 10/27/18 15:00 10/27/18 15:00 Oxygen Delivery Method Room Air Weight: 71.7 kg Body Mass Index (BMI) 24.3 Intake and Output for Last 24 Hours 10/25/18 10/26/18 10/27/18 23:59 23:59 23:59 Intake Total 46 / 46 Balance 46 / 46 Laboratory Tests Past 24 Hrs 10/27/18 10/27/18 10/27/18 03:10 03:10 06:56 WBC 1.4 L* 1.3 L* Corrected WBC THORACIC MEDICINE PHYSICIAN RBC 3.84 L 3.09 L Hgb 13.0 10.5 L Hct 38.7 L 31.5 L MCV 100.8 H 101.9 H MCH 33.9 H 34.0 H MCHC 33.6 33.3 RDW 13.6 13.4 RDW Differential 49.2 H 48.9 H Plt Count 148 L 121 L MPV 9.0 8.8 Immature Gran % (Auto) 2.100 H 1.600 H Neut % (Auto) 49.3 42.9 L Lymph % (Auto) 23.6 21.1 Dawson % (Auto) 16.7 H 26.6 H Eos % (Auto) 7.6 H 7.0 H Baso % (Auto) 0.7 0.8 Absolute Neuts (auto) 0.7 L 0.6 L Absolute Lymphs (auto) 0.34 L 0.27 L Total Counted Not Reportable Not Reportable Neutrophils % (Manual) THORACIC MEDICINE PHYSICIAN Band Neutrophils % THORACIC MEDICINE PHYSICIAN Lymphocytes % (Manual) THORACIC MEDICINE PHYSICIAN Monocytes % (Manual) THORACIC MEDICINE PHYSICIAN Eosinophils % (Manual) THORACIC MEDICINE PHYSICIAN Basophils % (Manual) THORACIC MEDICINE PHYSICIAN Metamyelocytes % THORACIC MEDICINE PHYSICIAN Myelocytes % THORACIC MEDICINE PHYSICIAN Promyelocytes % THORACIC MEDICINE PHYSICIAN Blast Cells % THORACIC MEDICINE PHYSICIAN Plasma Cell % (Manual) THORACIC MEDICINE PHYSICIAN Other Cells % THORACIC MEDICINE PHYSICIAN Nucleated RBCs/100 WBC THORACIC MEDICINE PHYSICIAN Differential Comment THORACIC MEDICINE PHYSICIAN Diff Path Review Reviewed Reviewed Hypersegmented Neuts THORACIC MEDICINE PHYSICIAN Atypical Lymphocytes THORACIC MEDICINE PHYSICIAN Reactive Lymphocytes THORACIC MEDICINE PHYSICIAN Smudge Cells THORACIC MEDICINE PHYSICIAN Toxic Granulation THORACIC MEDICINE PHYSICIAN Dohle Bodies THORACIC MEDICINE PHYSICIAN Fab Rods THORACIC MEDICINE PHYSICIAN Platelet Estimate SLT DEC Plt Morphology Comment THORACIC MEDICINE PHYSICIAN RBC Morphology THORACIC MEDICINE PHYSICIAN Polychromasia THORACIC MEDICINE PHYSICIAN Hypochromasia THORACIC MEDICINE PHYSICIAN Poikilocytosis THORACIC MEDICINE PHYSICIAN Basophilic Stippling THORACIC MEDICINE PHYSICIAN Anisocytosis THORACIC MEDICINE PHYSICIAN Microcytosis THORACIC MEDICINE PHYSICIAN Macrocytosis THORACIC MEDICINE PHYSICIAN Spherocytes THORACIC MEDICINE PHYSICIAN Sickle Cells THORACIC MEDICINE PHYSICIAN Target Cells THORACIC MEDICINE PHYSICIAN Tear Drop Cells THORACIC MEDICINE PHYSICIAN Ovalocytes THORACIC MEDICINE PHYSICIAN Stomatocytes THORACIC MEDICINE PHYSICIAN [place] Bodies THORACIC MEDICINE PHYSICIAN Manolo Cells THORACIC MEDICINE PHYSICIAN Bite Cells THORACIC MEDICINE PHYSICIAN Acanthocytes (Spur) THORACIC MEDICINE PHYSICIAN Rouleaux THORACIC MEDICINE PHYSICIAN Schistocytes THORACIC MEDICINE PHYSICIAN Sodium 129 L Potassium 4.0 Chloride 86 L Carbon Dioxide 28.0 Anion Gap 15 BUN 20 H Creatinine 1.10 Estim Creat Clear Calc 55.92 Est GFR (MDRD) Af Amer 84 Est GFR (MDRD) Non-Af 70 BUN/Creatinine Ratio 18.2 Glucose 234 H Calcium 9.3 Assessment/Plan All Active Problems (Last Reviewed 10/27/18 @ 19:39 by Jessica Obrien MD) Chemotherapy management, encounter for (Acute) Lumbago of lumbar region with sciatica (Acute) Spinal stenosis of lumbar region with neurogenic claudication (Acute) Other intervertebral disc degeneration, lumbar region (Acute) Other intervertebral disc displacement, lumbar region (Acute) Radiculopathy of lumbar region (Acute) Intervertebral disc stenosis of neural canal of lumbar region (Acute) MRI reviewed noted as: [facility] Imaging Services [address] [place] [address] Spine Lumbar (Routine) MR#: [id number] Acct: [id number] Name: LEXI DICKINSON Rep #: [id number] : 1945 M 73 From: Nona Pereira MD PCP: Rolando Burgos DO Status: ADM PHIL Study: Spine Lumbar (Routine) Date of Exam: 10/27/18 Exam# [id number] Ordering Dr: Roderick Najera DO STUDY: MRI LUMBAR SPINE WITHOUT CONTRAST REASON FOR EXAM: Male, 73 years old. Low back pain with radiculopathy. TECHNIQUE: Standardized fat and water weighted pulse sequences were obtained in the sagittal and axial planes. COMPARISON: CT of the lumbar spine dated October 08, 2018. FINDINGS: T12-L1: Normal endplates. Normal disc height, signal and morphology. Normal bilateral facet joints. Normal central canal and bilateral lateral recesses. Normal bilateral intervertebral neural foramina. There is straightening of the normal lumbar lordosis. There is mild retrolisthesis at L4-5 and grade 1 anterolisthesis at L5-S1. There appears to be spondylolysis of L5. There is no substantial scoliosis. Normal conus medullaris that terminates at the T12-L1 level. L1-2: There is narrowing of the disc with irregular endplates. There appears to be a focal left central disc protrusion. There is moderate annular disc bulge and osteophyte complex. Neural foramina are moderately narrowed, greater on the left than right without definite nerve impingement. There is mild degenerative arthropathy of the facet joints. There is mild degenerative arthropathy of the facet joints. L2-3: There is narrowing of the disc. There is moderate annular disk bulge and osteophyte complex. There is mild degenerative arthropathy of the facet joints. Bilateral neuroforamina are narrowed without MR evidence for nerve impingement. There is mild significant acquired central canal stenosis. L3-4: There is narrowing of the distal vacuum disc phenomenon. There is moderate annular disc bulge and osteophyte complex. Neural foramina are moderately narrowed, right greater than left. There is moderate degenerative arthropathy of the facet joints and thickening of the ligamentum flavum. L4-5: There is severe narrowing of this disc with vacuum disc phenomenon. There is an annular disc bulge and osteophyte complex. There is mild degenerative arthropathy of facet joints. Neural foramina are narrowed, severely on the left with potential impingement of the left L4 nerve root. There is no significant central acquired canal stenosis. L5-S1: There is uncovering of the disc related to the anterolisthesis. There is moderate degenerative arthropathy of the facet joints. There is mild central acquired canal stenosis. The neural foramina are severely narrowed with probable impingement of bilateral L5 nerve roots of the neural foramina. There are multiple foci of abnormal signal within the marrow of all the imaged thoracic and lumbar vertebral bodies likely related to patient's non-Hodgkin's lymphoma. There is also abnormal signal within the sacrum and visualized iliac wings probably related to patient's lymphoma. Normal visualized paraspinous soft tissue structures. MRI/Spine Lumbar (Routine) IMPRESSION: 1. Moderately severe multilevel degenerative disc disease and degenerative arthropathy of the lumbar spine with acquired canal stenosis, neural foraminal narrowing and potential nerve impingement, as described. 2. Extensive abnormal signal within the marrow probably related to patient's known lymphoma. 3. Grade 1 spondylolisthesis at L5-S1 and retrolisthesis at L4-5. Patient reviewed, reviewed CAT scan and MRI, noted no evidence of compression fracture, patient is complaining of neurogenic claudication due to his severe lumbar spinal stenosis, Patient has positive fever response after receiving steroids/prednisone 40 mg daily as well as started on gabapentin which has been controlling his radiculopathy on the right leg, patient also seemed not requiring a lot of pain medication. I have discussed with patient to follow-up with his oncology regarding the bone marrow changes to consider treatment if necessary for his current active cancer treatment. Will recommend to continue Neurontin and increase the dose to 300 mg 3 times daily, will send patient home with a prescription for Neurontin to continue. Recommend to continue titrating lower dose of prednisone to 20 mg daily Recommend short course possible oxycodone or Ultram for pain for 3 days I discussed with patient and recommend to be seen in the pain management office on Tuesday or Tuesday to receive lumbar epidural steroid injection at the level of the L4-5 to provide some more relief for his intractable back pain and lower extremity radiculopathy Would recommend to start physical therapy evaluation treatment as an outpatient Patient was given the number and contact for to contact his office on Tuesday to start treatment plan Discussed risk benefits alternatives of the treatment plan as recommended Patient seems to be stable from pain management standpoint to discharge home and follow-up as an outpatient on Tuesday in the office Thank you for consulting me for patient care please contact me if any question concern about above recommendations Code Visit Inpatient E&M: 21731 Init Hosp L3
[2018-10-28 03:00] VITALS: RESP 15; O2SAT 98
[2018-10-28 04:00] VITALS: BP 101/64; PULSE 89; RESP 16; TEMP 36.7; O2SAT 98
[2018-10-28 06:31] LABS: Prothrombin Time (Protime)PT. 13.2 SECONDS (11.7-14.9)
[2018-10-28 06:32] LABS: Absolute Lymphocyte Count 0.39 X10^3/ul (0.83-4.51); Absolute Neutrophil Count 0.5 X10^3/uL (2.0-7.7); Basophil# 0.01 X10^3/uL; Eosinophil# 0.02 X10^3/uL; Eosinophils% 1.9 % (0-5); Hematocrit 32.6 % (40-54); Hemoglobin 10.9 g/dl (13.0-16.5); Lymphocyte # 0.39 X10^3/ul (4.0); Lymphocyte % 37.9 % (19-41); Mean Corp Hgb Conc 33.4 g/gl (32-36); Mean Corpuscular Hgb 33.4 pg (27.0-32.0); Monocyte# 0.14 X10^3/uL; Monocyte% 13.6 % (0-10); Neutrophil # 0.45 X10^3/uL (2.7-7.7); Neutrophil % 43.7 % (47-70); Platelet Count 98 K/mm3 (150-450); RBC Distribution Width CV 14.2 % (11.6-14.6); RBC Distribution Width SD 51.6 fl (35.1-43.9); Red Blood Count 3.26 M/mm3 (4.6-6.2)
[2018-10-28 06:33] LABS: POSITIVE COUNT YES; POSITIVE DIFFERENTIAL YES; POSITIVE MORPHOLOGY NO
[2018-10-28 06:47] LABS: ALB/GLOB Ratio 1.3 RATIO (0.9-2.4); AST(SGOT) 19 U/L (15-37); Alanine Aminotransfer ALT/SGPT 41 U/L (16-61); Albumin, Serum 3.6 g/dL (3.2-5.0); Alkaline Phosphatase 89 U/L (45-117); Anion Gap 6 (5-15); BUN 24 mg/dL (7-18); BUN/Creat Ratio 21.4 RATIO (10-20); Calcium,Total 8.9 mg/dL (8.5-10.1); Chloride 94 mmol/L (98-107); Creatinine, Serum 1.12 mg/dL (0.70-1.30); EST Glomerular Filtration Rate 68 mL/min (>60); Est Glom Filt Rate - Afr Amer 83 mL/min (>60); Estimated Creatinine Clearance 54.92 ml/min; Globulin 2.7 g/dL (2.2-4.2); Glucose 204 mg/dL (74-106); Magnesium 2.1 mg/dL (1.6-2.6); Potassium 4.3 mmol/L (3.5-5.1); Protein, Total 6.3 g/dL (6.4-8.2); Sodium Level 131 mmol/L (136-145)
[2018-10-28 06:52] LABS: Phosphorus 3.7 mg/dL (2.5-4.9); Thyroid Stim Hormone (TSH) 0.75 uIU/mL (0.358-3.74)
[2018-10-28 07:05] LABS: Platelet Estimate MOD DEC (ADEQ)
[2018-10-28 07:08] LABS: Differential Indicated SCAN CRITERIA MET
[2018-10-28] MEDS: Gabapentin 300 MG Capsule PO ×2 (07:39→12:28)
[2018-10-28] MEDS: predniSONE 20 MG Tablet 40 MG PO (07:39)
[2018-10-28 09:06] VITALS: BP 97/66; PULSE 80; RESP 16; TEMP 37; O2SAT 98
[2018-10-28] MEDS: Enoxaparin 40 MG/0.4 ML Syringe SC (10:43)
[2018-10-28] MEDS: Sertraline 50 MG Tablet PO (10:43)
[2018-10-28] MEDS: Docusate Sodium 100 MG Capsule PO (10:43)
[2018-10-28] MEDS: Pantoprazole Sodium 20 MG Tablet PO (10:45)
--- NOTE | 2018-10-28 13:46 | PCM.DC ---
- Discharge Diagnoses Current Active Problems: Current Active and Chronic Problems (Last Reviewed 10/27/18 @ 19:39 by Jessica Obrien MD) Lumbago of lumbar region with sciatica (Acute) Spinal stenosis of lumbar region with neurogenic claudication (Acute) Other intervertebral disc degeneration, lumbar region (Acute) Other intervertebral disc displacement, lumbar region (Acute) Radiculopathy of lumbar region (Acute) Intervertebral disc stenosis of neural canal of lumbar region (Acute) You will use the following diet at home:: Other - Resume previous diet Your food should be the consistency of: Regular Your liquids should be the consistency of: Regular/Thin Discharge Activity: - - Do not lift more than 5 pounds. No bending over. Do not sit for longer than 1 hour without getting up and taking a short walk around the house. Call your doctor if you observe: Fever of 101 or Higher, Shortness of breath, Dizziness, Fainting spells, Chest pain, - - nausea,diarrhea, cough Additional Instructions: 1. The white blood cell count is very low due to the Rituxan. This makes you susceptible to infection so stay away from anyone who is sick until the white blood cell count comes up. 2. You will need to follow up with Dr. Anaya in the office to arrange for an epidural injection to help your back. I think the back pain is also worse because you are so depressed. I think you should try and get some counselling to help you better deal with the cancer diagnosis and the other stressors you have. There is a counselling center at [address] [place] [address]. It is called the [facility]. Their phone # is [phone]. Pending Tests on Discharge: B12 Allergies/Adverse Reactions: Allergies Zgthjwp-Oks-Lve Reductase Inhibitor Allergy (Verified 10/27/18 02:40) Other dextromethorphan Adverse Reaction (Severe, Verified 10/26/18 11:40) Unknown duloxetine [From Cymbalta] Adverse Reaction (Severe, Verified 10/26/18 11:40) Other difficulty sleeping quetiapine [From Seroquel] Adverse Reaction (Severe, Verified 10/26/18 11:40) Other difficulty sleeping Medications to take at Discharge Omeprazole [Prilosec] 20 mg PO DAILY 11/24/16 Ergocalciferol [Vitamin D] 50,000 unit PO Q7D 06/12/18 Sertraline HCl [Zoloft] 50 mg PO DAILY 09/26/18 Oxycodone [Oxyir] 1 - 2 tab PO Q6H PRN PRN #20 tablet 10/08/18 Gabapentin [Neurontin] 300 mg PO TIDCM #90 capsule 10/28/18 predniSONE tablet 20 mg PO DAILY@0800 #7 tablet 10/28/18 The following prescriptions were given: predniSONE tablet 20 mg PO DAILY@0800 #7 tablet Gabapentin [Neurontin] 300 mg PO TIDCM #90 capsule Primary Care Physician: Rolando Burgos DO [Primary Care Provider] - Please follow up with your Primary Care Physician in: 1 week Test Results: Test results from this visit will be discussed in further detail at your follow-up appointment, if applicable. Please Follow Up With: Jarett Anaya MD When: call the office Tuesday for an appt Proposed Discharge Date: 10/28/18
--- NOTE | 2018-10-28 13:55 | DCINST_ITS ---
- Discharge Diagnoses Current Active Problems: Current Active and Chronic Problems (Last Reviewed 10/27/18 @ 19:39 by Jessica Obrien MD) Lumbago of lumbar region with sciatica (Acute) Spinal stenosis of lumbar region with neurogenic claudication (Acute) Other intervertebral disc degeneration, lumbar region (Acute) Other intervertebral disc displacement, lumbar region (Acute) Radiculopathy of lumbar region (Acute) Intervertebral disc stenosis of neural canal of lumbar region (Acute) You will use the following diet at home:: Other - Resume previous diet Your food should be the consistency of: Regular Your liquids should be the consistency of: Regular/Thin Discharge Activity: - - Do not lift more than 5 pounds. No bending over. Do not sit for longer than 1 hour without getting up and taking a short walk around the house. Call your doctor if you observe: Fever of 101 or Higher, Shortness of breath, Dizziness, Fainting spells, Chest pain, - - nausea,diarrhea, cough Additional Instructions: 1. The white blood cell count is very low due to the Rituxan. This makes you susceptible to infection so stay away from anyone who is sick until the white blood cell count comes up. 2. You will need to follow up with Dr. Anaya in the office to arrange for an epidural injection to help your back. I think the back pain is also worse because you are so depressed. I think you should try and get some counselling to help you better deal with the cancer diagnosis and the other stressors you have. There is a counselling center at [address] [place] [address]. It is called the [facility]. Their phone # is [phone]. Pending Tests on Discharge: B12 Allergies/Adverse Reactions: Allergies Hfxsjya-Pxb-Wyc Reductase Inhibitor Allergy (Verified 10/27/18 02:40) Other dextromethorphan Adverse Reaction (Severe, Verified 10/26/18 11:40) Unknown duloxetine [From Cymbalta] Adverse Reaction (Severe, Verified 10/26/18 11:40) Other difficulty sleeping quetiapine [From Seroquel] Adverse Reaction (Severe, Verified 10/26/18 11:40) Other difficulty sleeping Medications to take at Discharge Omeprazole [Prilosec] 20 mg PO DAILY 11/24/16 Ergocalciferol [Vitamin D] 50,000 unit PO Q7D 06/12/18 Sertraline HCl [Zoloft] 50 mg PO DAILY 09/26/18 Oxycodone [Oxyir] 1 - 2 tab PO Q6H PRN PRN #20 tablet 10/08/18 Gabapentin [Neurontin] 300 mg PO TIDCM #90 capsule 10/28/18 predniSONE tablet 20 mg PO DAILY@0800 #7 tablet 10/28/18 The following prescriptions were given: predniSONE tablet 20 mg PO DAILY@0800 #7 tablet Gabapentin [Neurontin] 300 mg PO TIDCM #90 capsule Primary Care Physician: Rolando Burgos DO [Primary Care Provider] - Please follow up with your Primary Care Physician in: 1 week Test Results: Test results from this visit will be discussed in further detail at your follow- up appointment, if applicable. Please Follow Up With: Jarett Anaya MD When: call the office Tuesday for an appt Proposed Discharge Date: 10/28/18
--- NOTE | 2018-10-28 13:57 | PCM.DC.SUM ---
Discharge Date and Diagnosis Date of Admission: 10/27/18 Date of Discharge: 10/28/18 - Primary Discharge Diagnosis Active and Suspected Problems (Last Reviewed 10/27/18 @ 19:39 by Jessica Obrien MD) Lumbago of lumbar region with sciatica (Acute) Spinal stenosis of lumbar region with neurogenic claudication (Acute) Other intervertebral disc degeneration, lumbar region (Acute) Radiculopathy of lumbar region (Acute) Intervertebral disc stenosis of neural canal of lumbar region (Acute) - Secondary Discharge Diagnosis Chronic Problems (Last Reviewed 10/27/18 @ 19:39 by Jessica Obrien MD) History of non-Hodgkin's lymphoma (Chronic) Mantle cell lymphoma (Chronic) Depression Hospital Course and Treatment Imaging Results: Clinical Impression(s) from Imaging Studies Lumbar Spine MRI 10/27/18 05:05 IMPRESSION: 1. Moderately severe multilevel degenerative disc disease and degenerative arthropathy of the lumbar spine with acquired canal stenosis, neural foraminal narrowing and potential nerve impingement, as described. 2. Extensive abnormal signal within the marrow probably related to patient's known lymphoma. 3. Grade 1 spondylolisthesis at L5-S1 and retrolisthesis at L4-5. Electronically Signed: Nona Pereira MD at 10:46 EST , Service support , Laboratory Results - last 24 hr 10/28/18 10/28/18 10/28/18 06:00 06:00 06:00 WBC 1.0 L* RBC 3.26 L Hgb 10.9 L Hct 32.6 L MCV 100.0 H MCH 33.4 H MCHC 33.4 RDW 14.2 RDW Differential 51.6 H Plt Count 98 L MPV 9.0 Immature Gran % (Auto) 1.900 H Neut % (Auto) 43.7 L Lymph % (Auto) 37.9 [place] % (Auto) 13.6 H Eos % (Auto) 1.9 Baso % (Auto) 1.0 Absolute Neuts (auto) 0.5 L Absolute Lymphs (auto) 0.39 L Total Counted Not Reportable Differential Comment Diff Path Review May foll Platelet Estimate MOD DEC PT 13.2 INR 1.0 Sodium 131 L Potassium 4.3 Chloride 94 L Carbon Dioxide 31.0 Anion Gap 6 BUN 24 H Creatinine 1.12 Estim Creat Clear Calc 54.92 Est GFR (MDRD) Af Amer 83 Est GFR (MDRD) Non-Af 68 BUN/Creatinine Ratio 21.4 H Glucose 204 H Calcium 8.9 Phosphorus Magnesium 2.1 Total Bilirubin 0.90 AST 19 ALT 41 Alkaline Phosphatase 89 Ammonia Total Protein 6.3 L Albumin 3.6 Globulin 2.7 Albumin/Globulin Ratio 1.3 TSH 10/28/18 10/28/18 06:00 06:00 WBC RBC Hgb Hct MCV MCH MCHC RDW RDW Differential Plt Count MPV Immature Gran % (Auto) Neut % (Auto) Lymph % (Auto) [place] % (Auto) Eos % (Auto) Baso % (Auto) Absolute Neuts (auto) Absolute Lymphs (auto) Total Counted Differential Comment Diff Path Review Platelet Estimate PT INR Sodium Potassium Chloride Carbon Dioxide Anion Gap BUN Creatinine Estim Creat Clear Calc Est GFR (MDRD) Af Amer Est GFR (MDRD) Non-Af BUN/Creatinine Ratio Glucose Calcium Phosphorus 3.7 Magnesium Total Bilirubin AST ALT Alkaline Phosphatase Ammonia 11.0 Total Protein Albumin Globulin Albumin/Globulin Ratio TSH 0.75 Dr. Obrien-pain management Operations: None Procedures: None Summary of Care Provided: The patient is a 73-year-old male with a past medical history of mantle cell lymphoma(recent BM bx with no evidence myeloproliferative disease), diabetes mellitus type 2, GERD, chronic renal failure, anxiety, long-standing depression, hyperlipidemia, hypertension and chronic back pain who has been seen in the emergency department 3 times since 10/08/2018 complaining of severe back pain. On 10/08/2018 he was seen by Dr. Chaves in the ED c/o radicular pain in the LLE and was prescribed OxyIR and prednisone 10 mg daily, #[address]. [address] scan of the lumbar spine on 10/08/2018 showed worsening of multilevel degenerative disc disease with retrolisthesis at L4-5 and anterolisthesis at L5-S1. There was foraminal stenosis at multiple levels and canal stenosis. When compared to an MRI done in 2013 there had been progressive disease. There was no evidence of any compression fractures or destructive bony processes. The prednisone resolve the pain in the left lower extremity but following discontinuation of prednisone he developed pain in the right lower extremity radiating from the right buttocks down the right posterior thigh and right posterior calf. He also complained of paresthesias in both feet. On 10/26/2018 he was seen by Dr. Carl in the emergency department and complained of back pain radiating down his right leg. He was treated with a dose of Dilaudid which helped him and he was sent home. He was still on prednisone at the time. He returned to the emergency department on 10/27/2018 at 4 AM in the morning and was seen by Dr. Aviles and stated the pain was so bad that he had been unable to ambulate. The patient requested inpatient admission for pain management. He was admitted to the hospital and started on Prednisone 40 mg daily. Dilaudid and Oxy IR were ordered PRN. An MRI of the lumbar spine was ordered. The MRI showed moderately severe multilevel degenerative disc disease and degenerative arthropathy of the lumbar spine with acquired canal stenosis, neural foraminal narrowing and probable nerve impingement. There was extensive abnormal signal within the marrow probably related to his known lymphoma which is being managed by Dr. Ybarra. He took only 1 dose of Dilaudid following admission and was started on Gabapentin in addition to the Prednisone and the pain improved. Dr. Obrien from pain management was consulted and he recommended increasing gabapentin to 300 mg 3 times daily and tapering the prednisone to 20 mg. He requested that this gentleman call Dr. Dr. Anaya's office on Tuesday or Tuesday arrange for an epidural. He was treated by Dr. Ybarra with Rituxan on 10/25/18 and CBC on the date of DC showed a white blood cell count of 1.0 with 43.7% neutrophils and 1.9% immature granulocytes. Hemoglobin was stable at 10.9 and platelets were 98,000. He will not be able to have an epidural until the white blood cell count has recovered and his platelets are stable. He was discharged home on 10/28/2018 with a prescription for gabapentin No. 90 and prednisone 20 mg, #7. This gentleman is very forgetful and very emotional. TSH was normal and the B12 is pending. Ammonia was normal at 11. He states that he is getting more forgetful. He repeats himself endlessly. He also cries and tell me he has been depressed since the age of 16. He has seen many therapists and been on many medications and nothing helps. He wants to but, tells me that he is a Rastafarian and it is against the teachings of the bible to take a life. He may need a referral to [facility] to get his emotions/depression under control. Alert, tearful, ambulating around his room with ease and no limp. Lungs-clear to auscultation Heart-regular rate and rhythm with a normal S1, normal S2, no murmurs and no gallop Abdomen-soft, nontender, nondistended, normal bowel sounds in all 4 quadrants No peripheral edema, no calf tenderness, no clubbing, no cyanosis Mildly positive straight leg raising test on the right at 60-70 degrees Negative straight leg raising on the left Negative Kumar's bilaterally This note was generated with [employer] dictation software. It may contain incorrect words, spelling, and punctuation that were not noted in checking the note before signing. - Physical Exam Vital Signs Temp Pulse Resp BP Pulse Ox 98.6 F 80 16 97/66 98 10/28/18 09:06 10/28/18 09:06 10/28/18 09:06 10/28/18 09:06 10/28/18 09:06 Oxygen Delivery Method Room Air Weight: 158 lb 1.143 oz Body Mass Index (BMI) 24.3 Intake and Output for Last 24 Hours 10/26/18 10/27/18 10/28/18 23:59 23:59 23:59 Intake Total 46 / 46 1150 / 1150 Balance 46 / 46 1150 / 1150 Laboratory Tests Past 24 Hrs 10/28/18 10/28/18 10/28/18 06:00 06:00 06:00 WBC 1.0 L* RBC 3.26 L Hgb 10.9 L Hct 32.6 L MCV 100.0 H MCH 33.4 H MCHC 33.4 RDW 14.2 RDW Differential 51.6 H Plt Count 98 L MPV 9.0 Immature Gran % (Auto) 1.900 H Neut % (Auto) 43.7 L Lymph % (Auto) 37.9 [place] % (Auto) 13.6 H Eos % (Auto) 1.9 Baso % (Auto) 1.0 Absolute Neuts (auto) 0.5 L Absolute Lymphs (auto) 0.39 L Total Counted Not Reportable Differential Comment Diff Path Review May foll Platelet Estimate MOD DEC PT 13.2 INR 1.0 Sodium 131 L Potassium 4.3 Chloride 94 L Carbon Dioxide 31.0 Anion Gap 6 BUN 24 H Creatinine 1.12 Estim Creat Clear Calc 54.92 Est GFR (MDRD) Af Amer 83 Est GFR (MDRD) Non-Af 68 BUN/Creatinine Ratio 21.4 H Glucose 204 H Calcium 8.9 Phosphorus Magnesium 2.1 Total Bilirubin 0.90 AST 19 ALT 41 Alkaline Phosphatase 89 Ammonia Total Protein 6.3 L Albumin 3.6 Globulin 2.7 Albumin/Globulin Ratio 1.3 Vitamin B12 TSH 10/28/18 10/28/18 10/28/18 06:00 06:00 06:00 WBC RBC Hgb Hct MCV MCH MCHC RDW RDW Differential Plt Count MPV Immature Gran % (Auto) Neut % (Auto) Lymph % (Auto) [place] % (Auto) Eos % (Auto) Baso % (Auto) Absolute Neuts (auto) Absolute Lymphs (auto) Total Counted Differential Comment Diff Path Review Platelet Estimate PT INR Sodium Potassium Chloride Carbon Dioxide Anion Gap BUN Creatinine Estim Creat Clear Calc Est GFR (MDRD) Af Amer Est GFR (MDRD) Non-Af BUN/Creatinine Ratio Glucose Calcium Phosphorus 3.7 Magnesium Total Bilirubin AST ALT Alkaline Phosphatase Ammonia 11.0 Total Protein Albumin Globulin Albumin/Globulin Ratio Vitamin B12 Pending TSH 0.75 Discharge Activity: - - Do not lift more than 5 pounds. No bending over. Do not sit for longer than 1 hour without getting up and taking a short walk around the house. Call your doctor if you observe: Fever of 101 or Higher, Shortness of breath, Dizziness, Fainting spells, Chest pain, - - nausea,diarrhea, cough Home Medications: Medications to take at Discharge Omeprazole [Prilosec] 20 mg PO DAILY 11/24/16 Ergocalciferol [Vitamin D] 50,000 unit PO Q7D 06/12/18 Sertraline HCl [Zoloft] 50 mg PO DAILY 09/26/18 Oxycodone [Oxyir] 1 - 2 tab PO Q6H PRN PRN #20 tablet 10/08/18 Gabapentin [Neurontin] 300 mg PO TIDCM #90 cap 10/28/18 predniSONE tablet 20 mg PO DAILY@0800 #7 tab 10/28/18 Following Prescrptions Were Given to Patient: predniSONE tablet 20 mg PO DAILY@0800 #7 tab Gabapentin [Neurontin] 300 mg PO TIDCM #90 cap Primary Care Physician: Rolando Burgos DO [Primary Care Provider] - Please follow up with your Primary Care Physician in: 1 week Please Follow Up With: Jarett Anaya MD When: call the office Tuesday for an appt Disposition: Home Minutes spent on discharge:: 30 Medical Necessity - Tobacco Use Smoking Status: Former smoker Meaningful Use Info Meaningful Use Diagnoses (Choose all that apply): None applicable Code Visit OBSV E&M: 49569 Observation care discharge
[2018-10-28 14:48] VITALS: BP 114/86; PULSE 100; RESP 18; TEMP 36.8; O2SAT 98
[2018-10-30 08:40] LABS: Vitamin B12 372 pg/mL (211-911)
[2018-10-30 14:16] LABS: Pathologist Review Reviewed
== END 2018-10-28 15:00 | disposition home or self-care (01) ==
LOC: ED 03:17 → MS3 04:31
PROVIDERS: Emergency Provider Emergency Medicine; Family Provider Family Medicine; PCP Family Medicine; Visit Provider Internal Medicine
DX: M48.062 Spinal stenosis, lumbar region with neurogenic claudication (principal); M54.40 Lumbago with sciatica, unspecified side; C83.10 Mantle cell lymphoma, unspecified site; E87.1 Hypo-osmolality and hyponatremia; K21.9 Gastro-esophageal reflux disease without esophagitis; E11.22 Type 2 diabetes mellitus with diabetic chronic kidney disease; E78.5 Hyperlipidemia, unspecified; I12.9 Hypertensive chronic kidney disease with stage 1 through stage 4 chronic kidney disease, or unspecified chronic kidney disease; F41.9 Anxiety disorder, unspecified; K59.00 Constipation, unspecified; G89.29 Other chronic pain; D61.818 Other pancytopenia; N18.3 Chronic kidney disease, stage 3 (moderate); F32.9 Major depressive disorder, single episode, unspecified; Z79.899 Other long term (current) drug therapy; Z87.891 Personal history of nicotine dependence
CPT/HCPCS: 36415; 72148; 80048; 80053; 82140; 82607; 83735; 84100; 84443; 85025; 85610; 96372; 96374; 96375; 96376; 97161; 97165; 97530; 97802; 99218; 99282; J7030; J7040; A4216; G0378; J2405

== ENCOUNTER 2018-11-01 07:49 | Observation (INO) | payer MEDICARE, SELFPAY ==
[2018-10-27 05:01] VITALS: BMI 24.3
[2018-11-01 07:50] VITALS: BP 148/96; PULSE 83; RESP 24; TEMP 36.6; O2SAT 96; BMI 26.3
--- NOTE | 2018-11-01 08:17 | US_ITS ---
STUDY: ULTRASOUND - URINARY BLADDER REASON FOR EXAM: Male, 73 years old. Back pain. TECHNIQUE: Ultrasound evaluation of the urinary bladder was performed with real-time and static finch-scale imaging. COMPARISON: None. FINDINGS: There is no right UVJ calculus. There is a visualized right ureteral jet. There is no left UVJ calculus. There is a visualized left ureteral jet. The distended volume of the urinary bladder is 189 ml. The empty volume of the urinary bladder is 148 ml. The bladder wall is within normal limits. The bladder wall measures . There is no demonstrated bladder wall mass lesion. There are no demonstrated bladder calculi. US/Post Void Residual Bladder IMPRESSION: The patient was unable to void at this time. Electronically Signed: Bartolo Adrian, at 10:16 EST , Service support ,
[2018-11-01] MEDS: Ondansetron 4 MG/2 ML Vial IV (08:51)
[2018-11-01] MEDS: 0.9% Normal Saline 1,000 ML 150 ML IV (08:51)
[2018-11-01] MEDS: HYDROmorphone 1 MG/ML Syringe IV ×4 (08:51→21:10)
[2018-11-01 08:53] VITALS: BP 127/87; PULSE 86; RESP 18; O2SAT 100
[2018-11-01 09:11] LABS: Mean Corp Hgb Conc 32.4 g/gl (32-36); Mean Corpuscular Hgb 32.6 pg (27.0-32.0); Mean Corpuscular Volume 100.5 fL (80-94); Mean Platelet Vol. 9.1 fl (6.2-12.0); Platelet Count 88 K/mm3 (150-450); RBC Distribution Width CV 14.4 % (11.6-14.6); RBC Distribution Width SD 52.9 fl (35.1-43.9); Red Blood Count 3.68 M/mm3 (4.6-6.2); White Blood Count 2.1 K/mm3 (4.4-11.0)
[2018-11-01 09:15] LABS: Differential Indicated MANUAL DIFF; POSITIVE COUNT YES; POSITIVE DIFFERENTIAL YES; POSITIVE MORPHOLOGY YES
[2018-11-01 09:16] LABS: Anion Gap 11 (5-15); BUN 23 mg/dL (7-18); BUN/Creat Ratio 22.3 RATIO (10-20); Calcium,Total 9.6 mg/dL (8.5-10.1); Chloride 93 mmol/L (98-107); Creatinine, Serum 1.03 mg/dL (0.70-1.30); EST Glomerular Filtration Rate 75 mL/min (>60); Est Glom Filt Rate - Afr Amer 91 mL/min (>60); Estimated Creatinine Clearance 59.72 ml/min; Glucose 200 mg/dL (74-106); Sodium Level 134 mmol/L (136-145)
[2018-11-01 09:32] LABS: Basophil 1 % (0-1); Blast 4 % (0-0); Eosinophil 3 % (0-5); Lymphocyte 18 % (19-41); Metamyelocyte 4 % (0-1); Monocyte 12 % (0-10); Myelocyte 1 (0-0); Neutrophil-Band 5 % (0-5); Neutrophil-Segmented 46 % (47-70); Platelet Estimate MOD DEC (ADEQ); Promyelocyte 6 (0-0); Red Cell Morphology NORM C+C NORMAL (NORM C&C); Total Cells Counted 100 (MANUAL DIFF)
[2018-11-01 09:33] LABS: Absolute Neutrophil Count 1.1 X10^3/uL (2.0-7.7)
[2018-11-01 09:34] LABS: Absolute Lymphocyte Count 0.38 X10^3/ul (0.83-4.51); Lymphocyte # 0.38 X10^3/ul (4.0)
[2018-11-01 10:30] VITALS: BP 144/89; PULSE 87; RESP 18; O2SAT 95
--- NOTE | 2018-11-01 11:24 | NURSING ---
DR PRANAV CARRASQUILLO
[2018-11-01 12:07] VITALS: BP 181/103; PULSE 83; RESP 16; O2SAT 97
--- NOTE | 2018-11-01 13:46 | ED.DCSUM_ITS ---
- ER Visit Summary Date of Service: 11/01/18 Chief Complaint: Back pain History of Present Illness: The patient is a [address] Ybarra, Dr. Burgos, and Dr. Anaya. He reports he has had low back pain for weeks. Some dull, aching pain is 10-10 severity. Is worsened by movement or laying flat. Is relieved by nothing. He is currently taking Dilaudid, Neurontin, and prednisone with no relief. States it radiates down the back of both legs. Radiates down the left to the level of the knee and on the right to the level of the calf. He denies any problems with his bowels or his bladder. He has had no groin numbness. Physical Examination: Vitals: Stable. Afebrile. General: A&O x 3. NAD. Cardiovascular exam: Regular rate and rhythm, no murmur, rub or gallop. Respiratory exam: Clear to auscultation bilaterally. No wheezes or stridor. Abdominal exam: Soft, nontender, nondistended, normal bowel sounds. No peritoneal signs. Back: Diffuse moderate tenderness to palpation over the lumbar spine and the paraspinous musculature in the lumbar region. No point tenderness. Negative straight leg bilaterally. 5/5 DF, PF, EHL bilaterally. Normal sensation to light touch throughout. Extremity: No clubbing, cyanosis, or edema. Test Results: CBC shows a white count of 2.1 with an H&H of 12.0 and 37.0, platelets of 88, segmented neutrophils of 46, lymphs lites of 18, monocytes of 12, metamyelocytes of 4, myelocytes 1, promyelocytes of 6, and blasts of 4. Chem-7 is more for sodium 134, chloride of 93, BUN 23, glucose of 200. Postvoid residual is 148 mL. Emergency Department Course and Treatment: Patient was given Dilaudid and Zofran IV. I reviewed his recent admission in the MRI. He is still unable to ambulate. Treatment Plan: He was discussed with case management and is not safe to go home as he cannot get up and take care of himself. He was also discussed with Dr. Najera and Dr. Ruiz. He will be admitted to the hospital for further evaluation and treatment. Disposition: Admitted in stable condition. Impression: 1. Pancytopenia. 2. Acute on chronic back pain. 3. Mental cell lymphoma. 4. Depression. This note was generated with [employer] software. It may contain incorrect words, spelling, and punctuation that were not noted in review of the chart prior to signing
--- NOTE | 2018-11-01 13:53 | NURSING ---
308 ALEX OBS BACK PAIN, INABILITY TO AMBULATE
--- NOTE | 2018-11-01 14:05 | HP.PCM_ITS ---
Problem List (1) Lumbago of lumbar region with sciatica Status: Acute History of Present Illness Date of Admission: 11/01/18 Chief Complaint: back and leg pain The patient is a 73 year old M presents again with intractable low back pain down bilateral lower extremities. Patient was hospitalized from October 27-. He had an MRI that showed bilateral nerve root impingement at L5 nerve root impingement on the left L4. Patient was seen in consultation by pain management and advised patient to follow-up with Dr. Anaya. Patient saw Dr. Gutierrez on the fourth and plan was to have an outpatient epidural. Patient's pain is just gotten more severe and refractory despite the Dilaudid and prednisone he is taking at home. He denies any bowel or bladder incontinence though he does note some hesitancy with his stream. He also states that since starting the gabapentin, he has had some diplopia when looking down. He states that he will have to bend his head to get better visual orientation. This plane of headache and neck pain patient states that he moans to help alleviate his severe back pain. [] Past Medical History Past Medical History (Chronic Problems): Chronic Problems (Last Reviewed 10/27/18 @ 19:39 by Jessica Obrien MD) History of non-Hodgkin's lymphoma (Chronic) Mantle cell lymphoma (Chronic) Medical History: Medical History (Last Reviewed 11/01/18 @ 14:03 by Roderick Najera DO) Anxiety F41.9 Diabetes E11.9 GERD (gastroesophageal reflux disease) K21.9 Hyperlipidemia E78.5 Lymphoma C85.90 Sciatica M54.30 mantel cell lymphoma CKD (chronic kidney disease) N18.9 Hypertension I10 Allergies Nptxsye-Ecz-Okl Reductase Inhibitor Allergy (Verified 11/01/18 07:53) Other dextromethorphan Adverse Reaction (Severe, Verified 11/01/18 07:53) Unknown duloxetine [From Cymbalta] Adverse Reaction (Severe, Verified 11/01/18 07:53) Other difficulty sleeping quetiapine [From Seroquel] Adverse Reaction (Severe, Verified 11/01/18 07:53) Other difficulty sleeping Home Medications: Ambulatory Orders Medication Instructions Recorded Omeprazole [Prilosec] 20 mg PO DAILY 11/24/16 Ergocalciferol [Vitamin D] 50,000 unit PO BARBA 06/12/18 Sertraline HCl [Zoloft] 50 mg PO DAILY 09/26/18 Oxycodone [Oxyir] 1 - 2 tab PO Q6H PRN PRN #20 tablet 10/08/18 Gabapentin [Neurontin] 300 mg PO TIDCM #90 cap 10/28/18 predniSONE tablet 20 mg PO DAILY@0800 #7 tab 10/28/18 Acetaminophen [Tylenol Extra 1,000 mg PO PRN PRN 11/01/18 Strength] HYDROmorphone tablet [Dilaudid] 2 mg PO Q6H PRN PRN 11/01/18 Surgical History: Surgical History (Last Reviewed 11/01/18 @ 14:03 by Roderick Najera DO) History of bone marrow biopsy Z98.890 [facility] History of myringotomy Z98.890 Hx of cholecystectomy Z90.49 Lives: Spouse/ Significant Other Smoking Status: Former smoker Tobacco Use: Non-smoker Alcohol: None Drugs: None - *Family History Maternal Family History: Family History (Last Reviewed 11/01/18 @ 14:03 by Roderick Najera DO) Father Heart disease Diabetes Mother Heart disease Diabetes Review of Systems Constitutional: Denies: Anorexia, Chills, Fever Eyes: Reports: Double vision. Denies: Blurred vision HEENT: Denies: Head Aches, Sinus Congestion, Sinus Drainage Cardiovascular: Denies: Chest Pain, Palpitations Respiratory: Denies: Cough, Shortness of breath at rest, Sputum production Gastrointestinal: Reports: Constipation. Denies: Abdominal Pain Genitourinary: Reports: Hesitancy. Denies: Incontinence Musculoskeletal: Reports: Back Pain, Leg Pain Skin: Denies: Dryness, Jaundice Neurological: Reports: Double vision. Denies: Blurred vision, Focal weakness, Numbness, Tingling Psychiatric: Reports: Depression, Suicidal Ideations - But denies any formal plan. States that he is a child of God and would never think to kill himself. Has no formal plan of suicide but does have intermittent thoughts of suicide.. Denies: Homicidal Ideations Endocrine: Denies: Change in Body Habitus, Heat/ Cold Intolerance Hematologic/ Lymphatic: Denies: Easy Bruising, Easy Bleeding, Hx of blood clot Comment: A 10 point review of systems were negative except as mentioned in the history of present illness and the other review of systems. VTE Information - Inpt Only VTE Present on Admission: No VTE Mechan Device Prophylaxis: SCD's VTE Pharm Prophylaxis ordered?: No Reason prophylaxis not ordered:: Medical Contraindication - Physical Exam General: Alert, Cooperative, No apparent distress, Well developed, Well nourished HEENT: Atraumatic, Normocephalic Oral: Moist Mucosa, No Gingival or Mucosal Lesions/ Ulcerations Neck: No Nodes, Thyroid Normal Size and Texture Lungs: Clear to auscultation, Normal air movement, No rhonchi, No wheeze Cardiovascular: Regular rate, Regular Rhythm, Normal S1, Normal S2, No murmurs Abdomen: Bowel Sounds Present, Soft, Non Tender, Non-Distended, No Hepato- splenomegaly Extremities: No edema, No Calf Tenderness Skin: No rashes, No breakdown Musculoskeletal: No Tenderness to Palpation of Joints or Extremities, No Muscle Wasting Neurological: - - Diminished DTRs in lower extremity. No clonus. Muscle strength 5 out of 5 in lower extremities. Psych/Mental Status: Appropriate, Anxious Vital Signs Temp Pulse Resp BP Pulse Ox 36.6 C 83 16 181/103 H 97 11/01/18 07:50 11/01/18 12:07 11/01/18 12:07 11/01/18 12:07 11/01/18 12:07 Oxygen Delivery Method Room Air Weight: 76.204 kg Body Mass Index (BMI) 26.3 Laboratory Tests Past 24 Hrs 11/01/18 11/01/18 08:45 08:45 WBC 2.1 L RBC 3.68 L Hgb 12.0 L Hct 37.0 L MCV 100.5 H MCH 32.6 H MCHC 32.4 RDW 14.4 RDW Differential 52.9 H Plt Count 88 L MPV 9.1 Neut % (Auto) Not Reportable Absolute Neuts (auto) 1.1 L Absolute Lymphs (auto) 0.38 L Total Counted 100 Neutrophils % (Manual) 46 L Band Neutrophils % 5 Lymphocytes % (Manual) 18 L Monocytes % (Manual) 12 H Eosinophils % (Manual) 3 Basophils % (Manual) 1 Metamyelocytes % 4 H Myelocytes % 1 H Promyelocytes % 6 H Blast Cells % 4 H* Diff Path Review May foll Platelet Estimate MOD DEC RBC Morphology NORM C+C Sodium 134 L Potassium 4.0 Chloride 93 L Carbon Dioxide 30.0 Anion Gap 11 BUN 23 H Creatinine 1.03 Estim Creat Clear Calc 59.72 Est GFR (MDRD) Af Amer 91 Est GFR (MDRD) Non-Af 75 BUN/Creatinine Ratio 22.3 H Glucose 200 H Calcium 9.6 Assessment/Plan All Active Problems (Last Reviewed 10/27/18 @ 19:39 by Jessica Obrien MD) Lumbago of lumbar region with sciatica (Acute) Spinal stenosis of lumbar region with neurogenic claudication (Acute) Other intervertebral disc degeneration, lumbar region (Acute) Other intervertebral disc displacement, lumbar region (Acute) Radiculopathy of lumbar region (Acute) Intervertebral disc stenosis of neural canal of lumbar region (Acute) . Intractable low back pain with radiculopathy. Patient had an MRI earlier this month that showed spinal stenosis but also possible nerve root impingement at bilateral L5 and left L4. Patient has failed conservative measures with prednisone and analgesics at home. Discussed with Dr. Anaya will plan to do the epidural on the . Continue with oral hydromorphone but also have able for breakthrough. Given the patient's self-reported diplopia after starting his gabapentin, I will discontinue that at this time.. Continue with prednisone for now. 2. Mantle cell lymphoma: Negative bone marrow biopsy on the . Interestingly, patient states that his symptoms began after his bone marrow biopsy at that time. I discussed with he and his that bone marrow biopsy did not directly cause this but perhaps given his significant spinal stenosis and arthritis that the positioning may have just adjusted him slightly enough to shift things out of place to cause his issues now. Patient did have some blasts on his differential. Patient will follow up with oncology as outpatient. 3. pancytopenia: This is chronic and if anything slightly better than it has been. I let Dr. Anaya 88,000. Should not be prohibitive for him to undergo the procedure tomorrow. 4. DVT prophylaxis with SCDs. Hold off chemical prophylaxis given the upcoming epidural but also his thrombocytopenia. Code Visit OBSV E&M: 98882 Initial observation care L3
[2018-11-01 14:43] VITALS: BMI 26.3
[2018-11-01 15:09] VITALS: BP 131/88; PULSE 81; RESP 18; TEMP 36.9; O2SAT 98
[2018-11-01] MEDS: Senna/Docusate Sodium 1 Tablet 2 TABLET PO ×2 (15:55→21:10)
[2018-11-01] MEDS: HYDROmorphone 2 MG TABLET PO (15:55)
[2018-11-01] MEDS: 0.9% NaCl Peripheral Flush Adult/Peds IV ×2 (17:08→21:10)
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
[2018-11-01 20:43] VITALS: BP 104/69; PULSE 85; RESP 14; TEMP 36.6; O2SAT 95
[2018-11-02] VITALS (12 sets, daily range): BP systolic 121–181; BP diastolic 63–114; PULSE 76–88; RESP 14–20; TEMP 36.7–37.2; O2SAT 93–100; BMI 26.3
[2018-11-02] MEDS: Acetaminophen 500 MG Tablet 1000 MG PO ×2 (01:00→23:07)
[2018-11-02] MEDS: Ondansetron 4 MG/2 ML Vial IV ×3 (01:00→23:33)
[2018-11-02] MEDS: 0.9% NaCl Peripheral Flush Adult/Peds IV ×5 (01:00→23:33)
[2018-11-02] MEDS: HYDROmorphone 1 MG/ML Syringe IV ×3 (02:43→17:10)
[2018-11-02 06:09] LABS: Prothrombin Time (Protime)PT. 13.3 SECONDS (11.7-14.9)
[2018-11-02 06:34] LABS: Hematocrit 31.2 % (40-54); Mean Corp Hgb Conc 32.1 g/gl (32-36); Mean Corpuscular Hgb 33.1 pg (27.0-32.0); Mean Corpuscular Volume 103.3 fL (80-94); Mean Platelet Vol. 9.2 fl (6.2-12.0); Platelet Count 82 K/mm3 (150-450); RBC Distribution Width CV 13.8 % (11.6-14.6); Red Blood Count 3.02 M/mm3 (4.6-6.2)
[2018-11-02 06:37] LABS: Differential Indicated MANUAL DIFF; POSITIVE COUNT NO; POSITIVE DIFFERENTIAL YES; POSITIVE MORPHOLOGY YES
[2018-11-02 07:24] LABS: Eosinophil 6 % (0-5); Lymphocyte 18 % (19-41); Metamyelocyte 4 % (0-1); Monocyte 22 % (0-10); Neutrophil-Band 4 % (0-5); Neutrophil-Segmented 44 % (47-70); Nucleated Red Bld Cells,Manual 2 % (0-5); Other WBC Type 2 %; Total Cells Counted 50 (MANUAL DIFF)
[2018-11-02 07:25] LABS: Anisocytosis 1+; Hypochromasia 1+; Microcytosis 1+; Platelet Estimate MOD DEC (ADEQ); Reactive Lymphocyte RARE
[2018-11-02 07:27] LABS: Absolute Lymphocyte Count 0.36 X10^3/ul (0.83-4.51)
[2018-11-02] MEDS: predniSONE 20 MG Tablet PO (07:28)
--- NOTE | 2018-11-02 07:59 | PCM.PN.HOSP ---
Subjective: Patient was seen and examined. Complains of split vision - left eye sees down, right eye sees up, not getting any worse. Pain is fairly controlled. Going for epidural injection by Dr. Anaya. Denies fever, chills, chest pain, SOB. Vitals/I&O's: Vital Signs Temp Pulse Resp BP Pulse Ox 98.5 F 83 14 121/74 H 93 11/02/18 02:37 11/02/18 02:37 11/02/18 02:37 11/02/18 02:37 11/02/18 02:37 Oxygen Delivery Method Room Air Weight: 76.204 kg Body Mass Index (BMI) 26.3 Intake and Output for Last 24 Hours 10/31/18 11/01/18 11/02/18 23:59 23:59 23:59 Intake Total 850 / 850 1060 / 1060 Output Total 350 / 350 Balance 500 / 500 1060 / 1060 General: Alert, Oriented x3, Cooperative, No apparent distress, - - appears chronically unwell HEENT: Atraumatic, PERRLA, EOMI, Normocephalic Oral: Moist Mucosa Neck: Supple Lungs: Clear to auscultation, Normal air movement Cardiovascular: Regular rate, Regular Rhythm, Normal S1, Normal S2, No murmurs Abdomen: Bowel Sounds Present, Soft, Non Tender, Non-Distended, No Hepato-splenomegaly Extremities: No edema Skin: No rashes, No breakdown Musculoskeletal: No Tenderness to Palpation of Joints or Extremities Lymphatic: No Cervical, Supraclavicular, or Inguinal Adenopathy Neurological: Cranial nerves II-XII grossly intact, Neuro grossly intact Psych/Mental Status: Normal Affect, Appropriate Laboratory Results 11/01/18 08:45: WBC 2.1 L, RBC 3.68 L, Hgb 12.0 L, Hct 37.0 L, MCV 100.5 H, MCH 32.6 H, MCHC 32.4, RDW 14.4, RDW Differential 52.9 H, Plt Count 88 L, MPV 9.1, Neut % (Auto) Not Reportable, Absolute Neuts (auto) 1.1 L, Absolute Lymphs (auto) 0.38 L, Total Counted 100, Neutrophils % (Manual) 46 L, Band Neutrophils % 5, Lymphocytes % (Manual) 18 L, Monocytes % (Manual) 12 H, Eosinophils % (Manual) 3, Basophils % (Manual) 1, Metamyelocytes % 4 H, Myelocytes % 1 H, Promyelocytes % 6 H, Blast Cells % 4 H*, Diff Path Review May yulia, Platelet Estimate MOD DEC, RBC Morphology NORM C+C 11/01/18 08:45: Sodium 134 L, Potassium 4.0, Chloride 93 L, Carbon Dioxide 30.0, Anion Gap 11, BUN 23 H, Creatinine 1.03, Estim Creat Clear Calc 59.72, Est GFR (MDRD) Af Amer 91, Est GFR (MDRD) Non-Af 75, BUN/Creatinine Ratio 22.3 H, Glucose 200 H, Calcium 9.6 11/02/18 05:32: WBC 2.0 L, RBC 3.02 L, Hgb 10.0 L, Hct 31.2 L, MCV 103.3 H, MCH 33.1 H, MCHC 32.1, RDW 13.8, RDW Differential 50.0 H, Plt Count 82 L, MPV 9.2, Neut % (Auto) Not Reportable, Absolute Neuts (auto) 1.0 L, Absolute Lymphs (auto) 0.36 L, Total Counted 50, Neutrophils % (Manual) 44 L, Band Neutrophils % 4, Lymphocytes % (Manual) 18 L, Monocytes % (Manual) 22 H, Eosinophils % (Manual) 6 H, Metamyelocytes % 4 H, Other Cells % 2, Nucleated RBCs/100 WBC 2, Diff Path Review May yulia, Reactive Lymphocytes RARE, Platelet Estimate MOD DEC, Hypochromasia 1+, Anisocytosis 1+, Microcytosis 1+ 11/02/18 05:32: PT 13.3, INR 1.0 Current Medications Acetaminophen (Tylenol) 1,000 mg PO Q6H PRN PRN PRN Reason: PAIN Last Admin: 11/02/18 01:00 Dose: 1,000 mg Ergocalciferol (Vitamin D) 50,000 unit PO BARBA LATOYA Hydromorphone HCl (Dilaudid Inj) 1 mg IV Q4H PRN PRN PRN Reason: BREAKTHROUGH PAIN (>4/10) Last Admin: 11/02/18 07:28 Dose: 1 mg Hydromorphone HCl (Dilaudid Tablet) 2 - 4 mg PO Q4H PRN PRN Reason: PAIN Last Admin: 11/01/18 15:55 Dose: 4 mg Magnesium Hydroxide (Milk Of Magnesia) 30 ml PO DAILY PRN PRN PRN Reason: Constipation Ondansetron HCl (Zofran) 4 mg IV Q8H PRN PRN PRN Reason: NAUSEA Last Admin: 11/02/18 01:00 Dose: 4 mg Pantoprazole Sodium (Protonix) 20 mg PO DAILY ON LICENSE OF [facility] Prednisone () 20 mg PO DAILY@0800 LATOYA Last Admin: 11/02/18 07:28 Dose: 20 mg Senna/Docusate Sodium (Senokot-S, Floridalma-Colace) 2 tablet PO BID LATOYA Last Admin: 11/01/18 21:10 Dose: 2 tablet Sertraline HCl (Zoloft) 50 mg PO DAILY ON LICENSE OF [facility] Sodium Chloride () 5 - 15 ml IV UD PRN PRN Reason: SALINE FLUSH Last Admin: 11/02/18 07:28 Dose: 10 ml Medical Necessity - Tobacco Use Smoking Status: Former smoker Tobacco Use: Non-smoker Assessment/Plan All Active Problems (Last Reviewed 11/01/18 @ 14:03 by Roderick Najera DO) Lumbago of lumbar region with sciatica (Acute) Spinal stenosis of lumbar region with neurogenic claudication (Acute) Other intervertebral disc degeneration, lumbar region (Acute) Other intervertebral disc displacement, lumbar region (Acute) Radiculopathy of lumbar region (Acute) Intervertebral disc stenosis of neural canal of lumbar region (Acute) 1. Acute intractable low back pain with radiculopathy, status post failed conservative measures, follows with Dr. Anaya, going for epidural injection today, will continue on IV Dilaudid. 2. Mantle cell lymphoma, follows up with oncology in the outpatient 3. Chronic pancytopenia, follows up with oncology in the outpatient 4. DVT PPx- SCDs 5. Disposition: Possible DC tomorrow Code Visit Inpatient E&M: 07426 Subs Hosp L2
[2018-11-02] MEDS: Senna/Docusate Sodium 1 Tablet 2 TABLET PO (09:49)
[2018-11-02] MEDS: Sertraline 50 MG Tablet PO (09:50)
[2018-11-02] MEDS: Pantoprazole Sodium 20 MG Tablet PO (09:51)
--- NOTE | 2018-11-02 10:36 | CASEMGMT ---
RN MICHAEL NOTE: To room to talk with pt. Introduced self and role of RN MICHAEL. Reviewed OLIVAS form, questions answered, and form signed by pt. Copy made and placed on chart. Original given to pt. Pt made aware if he has any further questions to ask for CM. Shahnaz OCHOAN MORENA RODRIGUEZ
--- NOTE | 2018-11-02 10:38 | CASEMGMT ---
Social Work Note SW followed up with pt to confirm discharge plans. Pt was seen in ED and referral was placed for SNF. SW met with pt, introduced self and role at [facility]. Pt is alert and orientated x3. Pt confirms that he wishes to discharge to either [facility] TCU, [facility] or [facility] SW explained that this worker will have to check on bed availability in TCU but if a bed is not available this worker will send referral to [facility]. Pt states understanding. SW explained referral process and that pt will need pre-cert from insurance. ABRAM placed a call to Dorota in TCU. Per Dorota at this time she has no beds available but will be meeting with SW at 11:00am to determine if any other discharges are expected. SW to wait to hear from Dorota in TCU to confirm if they have beds available. SW to fax referral to [facility] if bed at TCU is not available. Plan: SNF pending acceptance and pre-cert Felecia Mccain SUPERVISORY CBP OFFICER, MANAGER ELIGIBILITY
--- NOTE | 2018-11-02 12:15 | RAD_ITS ---
STUDY: X-RAY - LUMBAR SPINE REASON FOR EXAM: Male, 73 years old. Right L4-5, L5-S1 transforaminal block. TECHNIQUE: A single intraoperative view(s) of the lumbar spine were obtained. COMPARISON: CT lumbar spine, October 08, 2018. FINDINGS: The single age and demonstrates what appears to be the L4-5 facet joint. There is a needle entering the facet space. Please refer to the operative report for further details RAD/Spine 1 View Any Level IMPRESSION: Transforaminal block at the right L4-5 level. Electronically Signed: Shivam Sanchez DO at 16:06 EST Tel [phone], Service support ,
--- NOTE | 2018-11-02 13:25 | CASEMGMT ---
Social Work Note Pt is currently still off floor for procedure. PT/OT to work with pt once pt is done with procedure. Plan: SNF pending acceptance and pre-cert Felecia Mccain EMPLOYEE ADVISER, BUS INFO CONSULTANT
[2018-11-02] MEDS: Triamcinolone Acetonide 40 MG/ML Vial ×2 (13:30→14:27)
[2018-11-02 13:34] LABS: Pathologist Review Reviewed
[2018-11-02 13:43] LABS: Pathologist Review Reviewed
--- NOTE | 2018-11-02 14:08 | CASEMGMT ---
Social Work Note SW faxed referral to [facility] as there are still no beds on TCU. No PT/OT notes available at this time. SW to fax PT/OT when available. Plan: [facility] pending acceptance and pre-cert Felecia Mccain UNIVERSITY COUNSELOR, RF MANAGER
--- NOTE | 2018-11-02 14:50 | CASEMGMT ---
Addendum entered by Felecia Mccain 11/02/18 17:15: ABRAM faxed PT/OT to Mitra at [facility]. Informed Mitra to submit for pre-cert. Original Note: Social Work Note SW received message from Mitra at [facility] stating she is able to accept pt and will submit for pre-cert once pt works with PT/OT. SW to fax PT/OT once available. Plan: [facility] pending pre-cert Felecia Mccain ACCOUNTING SYSTEMS ANALYST, EMERGENCY VEHICLE OPERATOR
--- NOTE | 2018-11-02 20:10 | NURSING ---
This RN went into patients room to recheck blood pressure and VS, BP 160/104. Patient frustrated and states that staff were not answering his call light. This RN explained to patient that his call lights have been answered and multiple staff members have been in his room since 7pm, including this RN, chargemaster analyst, and CREAM HAULER. Patient c/o about the noise and lights and expressed frustration about the coughing he was hearing. This RN offered to keep his door shut and turn off the lights, patient still seemed frustrated. Patient c/o headache. This RN offered PRN tylenol for patient and a cool wash cloth, patient refused. MD ordered norvasc for blood pressure, this RN attempted to explain why the MD ordered BP meds and patient stated I have never had an issue with my blood pressure. Patient refused to take novasc. Patient expressed frustration about all the medications he has taken. Patient was agreeable to have this RN do an assessment. This RN explained to patient that she would be back in at 10pm to recheck BP. MD notified of situation. Bed exit on, will continue to monitor.
--- NOTE | 2018-11-02 22:55 | NURSING ---
Patient called out stating he was in pain, PRN pain medication options offered yet patient refused, stating it gives me a headache. This RN offered to assist patient to reposition in the bed, patient stated I've been all over this bed. Patient ten proceded to crawl out of bed without assistance from this RN and sit at the edge of the bed. Patient wanted to go to the bathroom, x1 assist with walker. Patient moaned. Patient then assisted back to bed and is now sitting at the edge of the bed.
--- NOTE | 2018-11-02 23:17 | NURSING ---
Patient wanted to talk to his , this RN dialed the number for him.
[2018-11-03 06:05] VITALS: BP 149/95; PULSE 76; RESP 16; TEMP 36.8; O2SAT 99
[2018-11-03 07:33] LABS: Hematocrit 32.4 % (40-54); Hemoglobin 10.9 g/dl (13.0-16.5); Mean Corp Hgb Conc 33.6 g/gl (32-36); Mean Corpuscular Hgb 32.8 pg (27.0-32.0); Mean Corpuscular Volume 97.6 fL (80-94); Mean Platelet Vol. 9.4 fl (6.2-12.0); Platelet Count 78 K/mm3 (150-450); RBC Distribution Width CV 14.3 % (11.6-14.6); RBC Distribution Width SD 51.4 fl (35.1-43.9); Red Blood Count 3.32 M/mm3 (4.6-6.2); White Blood Count 2.7 K/mm3 (4.4-11.0)
[2018-11-03 07:35] LABS: Differential Indicated MANUAL DIFF; POSITIVE COUNT YES; POSITIVE DIFFERENTIAL YES; POSITIVE MORPHOLOGY YES
[2018-11-03 07:36] LABS: Anion Gap 9 (5-15); BUN 24 mg/dL (7-18); BUN/Creat Ratio 25.3 RATIO (10-20); Calcium,Total 8.7 mg/dL (8.5-10.1); Chloride 96 mmol/L (98-107); Creatinine, Serum 0.95 mg/dL (0.70-1.30); EST Glomerular Filtration Rate 83 mL/min (>60); Est Glom Filt Rate - Afr Amer 100 mL/min (>60); Estimated Creatinine Clearance 64.75 ml/min; Glucose 180 mg/dL (74-106); Sodium Level 131 mmol/L (136-145)
[2018-11-03 08:56] LABS: Blast 1 % (0-0); Eosinophil 1 % (0-5); Lymphocyte 6 % (19-41); Metamyelocyte 3 % (0-1); Monocyte 13 % (0-10); Myelocyte 2 (0-0); Neutrophil-Band 3 % (0-5); Neutrophil-Segmented 65 % (47-70); Platelet Estimate MOD DEC (ADEQ); Promyelocyte 6 (0-0); Red Cell Morphology NORM C+C NORMAL (NORM C&C); Total Cells Counted 100 (MANUAL DIFF)
[2018-11-03 08:57] LABS: Absolute Lymphocyte Count 0.16 X10^3/ul (0.83-4.51); Absolute Neutrophil Count 1.8 X10^3/uL (2.0-7.7); Lymphocyte # 0.16 X10^3/ul (4.0)
--- NOTE | 2018-11-03 09:19 | CASEMGMT ---
Social Work Note SW faxed updated PT/OT to [facility]. Plan: [facility] pending pre-cert Felecia Mccain MEAT SALES AND STORAGE MANAGER, SCREEN PRINTING SUPERVISOR
[2018-11-03 11:01] VITALS: BP 117/77; PULSE 80; RESP 18; TEMP 36.5; O2SAT 99
[2018-11-03] MEDS: predniSONE 20 MG Tablet PO (11:05)
[2018-11-03] MEDS: Ondansetron 4 MG/2 ML Vial IV (11:05)
[2018-11-03] MEDS: Senna/Docusate Sodium 1 Tablet 2 TABLET PO ×2 (11:05→21:00)
[2018-11-03] MEDS: Sertraline 50 MG Tablet PO (11:05)
[2018-11-03] MEDS: 0.9% NaCl Peripheral Flush Adult/Peds IV ×2 (11:06→21:01)
[2018-11-03] MEDS: Pantoprazole Sodium 20 MG Tablet PO (11:11)
--- NOTE | 2018-11-03 11:35 | CASEMGMT ---
Addendum entered by Felecia Mccain 11/06/18 09:05: ABRAM did inform Mitra at [facility] that it would be beneficial if pt was evaluated by psychiatrist while at [facility]. Mitra stated understanding and that she would pass the information to RN. Original Note: Addendum entered by Felecia Mccain 11/03/18 14:15: ABRAM placed a call to Mitra at [facility] and updated her this worker is leaving for the day and to call [facility] floor if pre-cert is obtained. Green sheet on chart if pre-cert is obtained. ABRAM completed PAS/RR in [facility] and placed on pt's chart. Original Note: Social Work Note SW updated by PT/OT that pt was emotional this morning and was talking about God taking him. ABRAM met with pt. ABRAM informed pt that [facility]'t have any beds currently and this SW made referral to pt's next choice [facility] and they are able to accept pt pending pre-cert. ABRAM asked pt if he would be agreeable to director treasurer speaking to him. Pt agreeable. Asha Echeverria made aware who will contact director treasurer. Plan: [facility] pending acceptance and pre-cert Felecia Mccain CLASSICS TEACHER, PATHOLOGY LAB TECHNICIAN
[2018-11-03 12:50] LABS: Pathologist Review Reviewed
--- NOTE | 2018-11-03 15:09 | NURSING ---
verified w/ social security benefits interviewer that it's ok for pt to be discharged tomorrow as have precert today per [facility], she confirmed pt may be discharged tomorrow if wishes.
[2018-11-03] MEDS: HYDROmorphone 1 MG/ML Syringe IV (15:17)
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
--- NOTE | 2018-11-03 16:05 | NURSING ---
Patient moaning in pain at 1510. Asking for medication at this time. 1mg IV dilaudid given per orders at 1517. Patient is now resting in bed with eyes closed. no distress noted. resps easy and non-labored. call light in reach. will continue to monitor.
[2018-11-03 16:52] VITALS: BP 166/91; PULSE 85; RESP 16; TEMP 37.2; O2SAT 96
--- NOTE | 2018-11-03 17:31 | PCM.PN.HOSP ---
Subjective: Patient was seen and examined. Complains of severe constipation and pain in the head. Pain in the back is much improved. Denies fever, chills, SOB. Objective: Physical exam: General: Alert, Oriented x3, Cooperative, No apparent distress, - - appears chronically unwell HEENT: Atraumatic, PERRLA, EOMI, Normocephalic Oral: Moist Mucosa Neck: Supple Lungs: Clear to auscultation, Normal air movement Cardiovascular: Regular rate, Regular Rhythm, Normal S1, Normal S2, No murmurs Abdomen: Bowel Sounds Present, Soft, Non Tender, Non-Distended, No Hepato-splenomegaly Extremities: No edema Skin: No rashes, No breakdown Musculoskeletal: No Tenderness to Palpation of Joints or Extremities Lymphatic: No Cervical, Supraclavicular, or Inguinal Adenopathy Neurological: Cranial nerves II-XII grossly intact, Neuro grossly intact Psych/Mental Status: Normal Affect, Appropriate Vitals/I&O's: Vital Signs Temp Pulse Resp BP Pulse Ox 98.9 F 85 16 166/91 H 96 11/03/18 16:52 11/03/18 16:52 11/03/18 16:52 11/03/18 16:52 11/03/18 16:52 Oxygen Flow Rate (L/min) 2 Oxygen Delivery Method Room Air Weight: 76.204 kg Body Mass Index (BMI) 26.3 Intake and Output for Last 24 Hours 11/01/18 11/02/18 11/03/18 23:59 23:59 23:59 Intake Total 850 / 850 2760 / 2760 450 / 450 Output Total 350 / 350 1200 / 1200 675 / 675 Balance 500 / 500 1560 / 1560 -225 / -225 Laboratory Results 11/03/18 05:58: WBC 2.7 L, RBC 3.32 L, Hgb 10.9 L, Hct 32.4 L, MCV 97.6 H, MCH 32.8 H, MCHC 33.6, RDW 14.3, RDW Differential 51.4 H, Plt Count 78 L, MPV 9.4, Neut % (Auto) Not Reportable, Absolute Neuts (auto) 1.8 L, Absolute Lymphs (auto) 0.16 L, Total Counted 100, Neutrophils % (Manual) 65, Band Neutrophils % 3, Lymphocytes % (Manual) 6 L, Monocytes % (Manual) 13 H, Eosinophils % (Manual) 1, Metamyelocytes % 3 H, Myelocytes % 2 H, Promyelocytes % 6 H, Blast Cells % 1 H*, Diff Path Review Reviewed, Platelet Estimate MOD DEC, RBC Morphology NORM C+C 11/03/18 05:58: Sodium 131 L, Potassium 4.0, Chloride 96 L, Carbon Dioxide 26.0, Anion Gap 9, BUN 24 H, Creatinine 0.95, Estim Creat Clear Calc 64.75, Est GFR (MDRD) Af Amer 100, Est GFR (MDRD) Non-Af 83, BUN/Creatinine Ratio 25.3 H, Glucose 180 H, Calcium 8.7 Current Medications Acetaminophen (Tylenol) 1,000 mg PO Q8 PRN PRN Reason: PAIN Amlodipine Besylate (Norvasc) 5 mg PO DAILY [facility] Last Admin: 11/03/18 11:00 Dose: Not Given Docusate Sodium (Colace) 200 mg PO BID [facility] Ergocalciferol (Vitamin D) 50,000 unit PO BARBA [facility] Lorazepam (Ativan) 0.5 mg PO QHS PRN PRN PRN Reason: AGITATION Magnesium Hydroxide (Milk Of Magnesia) 30 ml PO DAILY PRN PRN PRN Reason: Constipation Ondansetron HCl (Zofran) 4 mg IV Q8H PRN PRN PRN Reason: NAUSEA Last Admin: 11/03/18 11:05 Dose: 4 mg Oxycodone HCl (Oxyir) 5 mg PO Q6H PRN PRN PRN Reason: SEVERE PAIN (6-10/10) Oxycodone HCl (Oxycontin) 10 mg PO BID [facility] Pantoprazole Sodium (Protonix) 20 mg PO DAILY [facility] Last Admin: 11/03/18 11:11 Dose: 20 mg Prednisone () 20 mg PO DAILY@0800 [facility] Last Admin: 11/03/18 11:05 Dose: 20 mg Senna (Senokot) 2 tablet PO BID [facility] Senna/Docusate Sodium (Senokot-S, Floridalma-Colace) 2 tablet PO BID [facility] Last Admin: 11/03/18 11:05 Dose: 2 tablet Sertraline HCl (Zoloft) 50 mg PO DAILY [facility] Last Admin: 11/03/18 11:05 Dose: 50 mg Sodium Chloride () 5 - 15 ml IV UD PRN PRN Reason: SALINE FLUSH Last Admin: 11/03/18 11:06 Dose: 10 ml Medical Necessity - Tobacco Use Smoking Status: Former smoker Tobacco Use: Non-smoker Assessment/Plan All Active Problems (Last Reviewed 11/01/18 @ 14:03 by Roderick Najera DO) Lumbago of lumbar region with sciatica (Acute) Spinal stenosis of lumbar region with neurogenic claudication (Acute) Other intervertebral disc degeneration, lumbar region (Acute) Other intervertebral disc displacement, lumbar region (Acute) Radiculopathy of lumbar region (Acute) Intervertebral disc stenosis of neural canal of lumbar region (Acute) 1. Acute intractable low back pain with radiculopathy, status post failed conservative measures, s/p epidural injection on 11/02/18, on Dilaudid IV and po Discussed with Dr. Anaya, will switch to Oxycontin and oxycodone prn. 2. Mantle cell lymphoma, follows up with oncology in the outpatient 3. Chronic pancytopenia, follows up with oncology in the outpatient 4. DVT PPx- SCDs 5. Disposition: Discharge to [facility] tomorrow Code Visit Inpatient E&M: 20998 Subs Hosp L2
--- NOTE | 2018-11-03 17:36 | PN_ITS ---
Subjective: Patient was seen and examined. Complains of severe constipation and pain in the head. Pain in the back is much improved. Denies fever, chills, SOB. Objective: Physical exam: General: Alert, Oriented x3, Cooperative, No apparent distress, - - appears chronically unwell HEENT: Atraumatic, PERRLA, EOMI, Normocephalic Oral: Moist Mucosa Neck: Supple Lungs: Clear to auscultation, Normal air movement Cardiovascular: Regular rate, Regular Rhythm, Normal S1, Normal S2, No murmurs Abdomen: Bowel Sounds Present, Soft, Non Tender, Non-Distended, No Hepato- splenomegaly Extremities: No edema Skin: No rashes, No breakdown Musculoskeletal: No Tenderness to Palpation of Joints or Extremities Lymphatic: No Cervical, Supraclavicular, or Inguinal Adenopathy Neurological: Cranial nerves II-XII grossly intact, Neuro grossly intact Psych/Mental Status: Normal Affect, Appropriate Vitals/I&O's: Vital Signs Temp Pulse Resp BP Pulse Ox 98.9 F 85 16 166/91 H 96 11/03/18 16:52 11/03/18 16:52 11/03/18 16:52 11/03/18 16:52 11/03/18 16:52 Oxygen Flow Rate (L/min) 2 Oxygen Delivery Method Room Air Weight: 76.204 kg Body Mass Index (BMI) 26.3 Intake and Output for Last 24 Hours 11/01/18 11/02/18 11/03/18 23:59 23:59 23:59 Intake Total 850 / 850 2760 / 2760 450 / 450 Output Total 350 / 350 1200 / 1200 675 / 675 Balance 500 / 500 1560 / 1560 -225 / -225 Laboratory Results 11/03/18 05:58: WBC 2.7 L, RBC 3.32 L, Hgb 10.9 L, Hct 32.4 L, MCV 97.6 H, MCH 32.8 H, MCHC 33.6, RDW 14.3, RDW Differential 51.4 H, Plt Count 78 L, MPV 9.4, Neut % (Auto) Not Reportable, Absolute Neuts (auto) 1.8 L, Absolute Lymphs (auto) 0.16 L, Total Counted 100, Neutrophils % (Manual) 65, Band Neutrophils % 3, Lymphocytes % (Manual) 6 L, Monocytes % (Manual) 13 H, Eosinophils % (Manual) 1, Metamyelocytes % 3 H, Myelocytes % 2 H, Promyelocytes % 6 H, Blast Cells % 1 H*, Diff Path Review Reviewed, Platelet Estimate MOD DEC, RBC Morphology NORM C+C 11/03/18 05:58: Sodium 131 L, Potassium 4.0, Chloride 96 L, Carbon Dioxide 26.0, Anion Gap 9, BUN 24 H, Creatinine 0.95, Estim Creat Clear Calc 64.75, Est GFR (MDRD) Af Amer 100, Est GFR (MDRD) Non-Af 83, BUN/Creatinine Ratio 25.3 H, Glucose 180 H, Calcium 8.7 Current Medications Acetaminophen (Tylenol) 1,000 mg PO Q8 PRN PRN Reason: PAIN Amlodipine Besylate (Norvasc) 5 mg PO DAILY [facility] Last Admin: 11/03/18 11:00 Dose: Not Given Docusate Sodium (Colace) 200 mg PO BID [facility] Ergocalciferol (Vitamin D) 50,000 unit PO BARBA [facility] Lorazepam (Ativan) 0.5 mg PO QHS PRN PRN PRN Reason: AGITATION Magnesium Hydroxide (Milk Of Magnesia) 30 ml PO DAILY PRN PRN PRN Reason: Constipation Ondansetron HCl (Zofran) 4 mg IV Q8H PRN PRN PRN Reason: NAUSEA Last Admin: 11/03/18 11:05 Dose: 4 mg Oxycodone HCl (Oxyir) 5 mg PO Q6H PRN PRN PRN Reason: SEVERE PAIN (6-10/10) Oxycodone HCl (Oxycontin) 10 mg PO BID [facility] Pantoprazole Sodium (Protonix) 20 mg PO DAILY [facility] Last Admin: 11/03/18 11:11 Dose: 20 mg Prednisone () 20 mg PO DAILY@0800 [facility] Last Admin: 11/03/18 11:05 Dose: 20 mg Senna (Senokot) 2 tablet PO BID [facility] Senna/Docusate Sodium (Senokot-S, Floridalma-Colace) 2 tablet PO BID [facility] Last Admin: 11/03/18 11:05 Dose: 2 tablet Sertraline HCl (Zoloft) 50 mg PO DAILY [facility] Last Admin: 11/03/18 11:05 Dose: 50 mg Sodium Chloride () 5 - 15 ml IV UD PRN PRN Reason: SALINE FLUSH Last Admin: 11/03/18 11:06 Dose: 10 ml Medical Necessity - Tobacco Use Smoking Status: Former smoker Tobacco Use: Non-smoker Assessment/Plan All Active Problems (Last Reviewed 11/01/18 @ 14:03 by Roderick Najera DO) Lumbago of lumbar region with sciatica (Acute) Spinal stenosis of lumbar region with neurogenic claudication (Acute) Other intervertebral disc degeneration, lumbar region (Acute) Other intervertebral disc displacement, lumbar region (Acute) Radiculopathy of lumbar region (Acute) Intervertebral disc stenosis of neural canal of lumbar region (Acute) 1. Acute intractable low back pain with radiculopathy, status post failed conservative measures, s/p epidural injection on 11/02/18, on Dilaudid IV and po Discussed with Dr. Anaya, will switch to Oxycontin and oxycodone prn. 2. Mantle cell lymphoma, follows up with oncology in the outpatient 3. Chronic pancytopenia, follows up with oncology in the outpatient 4. DVT PPx- SCDs 5. Disposition: Discharge to [facility] tomorrow Code Visit Inpatient E&M: 29444 Subs Hosp L2
[2018-11-03] MEDS: Docusate Sodium 100 MG Capsule 200 MG PO (18:56)
[2018-11-03 20:48] VITALS: BP 152/90; PULSE 78; RESP 18; TEMP 36.6; O2SAT 97
[2018-11-03] MEDS: oxyCODONE HCl Cr 10 MG Tablet PO (20:59)
[2018-11-03] MEDS: Senna Tablet 2 TABLET PO (21:01)
[2018-11-03] MEDS: oxyCODONE 5 MG Tablet PO (22:26)
[2018-11-03] MEDS: Acetaminophen 500 MG Tablet 1000 MG PO (23:54)
[2018-11-03] MEDS: LORazepam 0.5 MG Tablet PO (23:54)
[2018-11-04 02:11] VITALS: BP 150/96; PULSE 71; RESP 16; TEMP 36.9; O2SAT 98
[2018-11-04] MEDS: oxyCODONE 5 MG Tablet PO (04:29)
--- NOTE | 2018-11-04 06:14 | NURSING ---
pt states he is in pain. Called the and got his pain med increased. Pt refusing to take pain pill. Also states he does not want a heating pad. states nothing works.
[2018-11-04 08:15] VITALS: BP 153/102; PULSE 86; RESP 14; TEMP 36.3; O2SAT 97
[2018-11-04] MEDS: Docusate Sodium 100 MG Capsule 200 MG PO (09:50)
[2018-11-04] MEDS: predniSONE 20 MG Tablet PO (09:50)
[2018-11-04] MEDS: amLODIPine 5 MG Tablet PO (09:51)
[2018-11-04] MEDS: oxyCODONE HCl Cr 10 MG Tablet PO (09:51)
[2018-11-04] MEDS: Senna/Docusate Sodium 1 Tablet 2 TABLET PO (09:52)
[2018-11-04] MEDS: Sertraline 50 MG Tablet PO (09:52)
[2018-11-04] MEDS: Senna Tablet 2 TABLET PO (09:53)
--- NOTE | 2018-11-04 10:19 | PCM.TXEXTCAR ---
- Diet 11/01/18 15:10 Diet: Regular Diet Food consistency:: Regular Liquid Consistency:: Regular/Thin - Routine Orders/Code Status Routine Lab Work: CBC - within 3 days, BMP - within days - Wound(s) LUMBAR Wound Type: INJECTION - Therapies Physical Therapy: Eval and Treat Occupational Therapy: Eval and Treat - Allergies/Procedures Done in Hospital Allergies/Adverse Reactions: Allergies Mdnmgli-Icl-Vcn Reductase Inhibitor Allergy (Verified 11/01/18 07:53) Other dextromethorphan Adverse Reaction (Severe, Verified 11/01/18 07:53) Unknown duloxetine [From Cymbalta] Adverse Reaction (Severe, Verified 11/01/18 07:53) Other difficulty sleeping quetiapine [From Seroquel] Adverse Reaction (Severe, Verified 11/01/18 07:53) Other difficulty sleeping Procedures: - - s/p epidural injection - Type of Care/Length of Stay Estimated LOS: Convalescent Care Less Than 30 days Type of Care Needed: Skilled Rehab Potential: Fair Prognosis: Fair - Additional Orders/Day of Discharge Day of Discharge: 11/04/18 - Follow Up Care Primary Care Physician: Rolando Burgos DO [Primary Care Provider] - Please follow up with your Primary Care Physician in: within 1-2 weeks Please Follow Up With: Jarett Anaya MD When: on 11/07/18
--- NOTE | 2018-11-04 10:32 | DS.PCM_ITS ---
Discharge Date and Diagnosis Date of Admission: 11/01/18 - Secondary Discharge Diagnosis Chronic Problems (Last Reviewed 11/01/18 @ 14:03 by Roderick Najera DO) History of non-Hodgkin's lymphoma (Chronic) Mantle cell lymphoma (Chronic) Hospital Course and Treatment Imaging Results: Clinical Impression(s) from Imaging Studies Abdomen/Bladder Ultrasound 11/01/18 08:17 IMPRESSION: The patient was unable to void at this time. Electronically Signed: Bartolo Adrian, at 10:16 EST , Service support , Spine X-Ray 11/02/18 12:15 IMPRESSION: Transforaminal block at the right L4-5 level. Electronically Signed: Shivam Sanchez DO at 16:06 EST Tel [phone], Service support , Pain management-Dr. Anaya Operations: None Procedures: - - s/p epidural injection Summary of Care Provided: The patient is a 73 year old M with past medical history of mantle cell lymphoma, chronic pancytopenia, spinal stenosis, who follows with Dr. Anaya in the outpatient and had planned for epidural injection. Patient was admitted to the emergency department with acute intractable low back pain. Previous attempts at oral pain regimen had failed. Patient was admitted for pain control, Dr. Anaya did an epidural block on 11/02/18. Patient complained of constipation in the hospital stay. Looked very depressed. Seroquel increased 200 mg daily. Discharge to residential facility. Subjective: Patient was seen and examined on the day of discharge. Complains of severe pain, transitioning the day before to OxyContin with oxycodone. Prefers IV Dilaudid. Discussed with Dr. Anaya, plan will be to increase OxyContin to 50 mg twice daily, and also put patient on oral Dilaudid 2 mg every 4 as needed. Patient was very tearful, felt very depressed about his a total state of his condition. Objective: Physical exam: General: Alert, Oriented x3, Cooperative, No apparent distress, - - appears chronically unwell HEENT: Atraumatic, PERRLA, EOMI, Normocephalic Oral: Moist Mucosa Neck: Supple Lungs: Clear to auscultation, Normal air movement Cardiovascular: Regular rate, Regular Rhythm, Normal S1, Normal S2, No murmurs Abdomen: Bowel Sounds Present, Soft, Non Tender, Non-Distended, No Hepato-splenomegaly Extremities: No edema Skin: No rashes, No breakdown Musculoskeletal: No Tenderness to Palpation of Joints or Extremities Lymphatic: No Cervical, Supraclavicular, or Inguinal Adenopathy Neurological: Cranial nerves II-XII grossly intact, Neuro grossly intact Psych/Mental Status: Normal Affect, Appropriate - Physical Exam Vital Signs Temp Pulse Resp BP Pulse Ox 98.4 F 71 16 150/96 H 98 11/04/18 02:11 11/04/18 02:11 11/04/18 02:11 11/04/18 02:11 11/04/18 02:11 Oxygen Flow Rate (L/min) 2 Oxygen Delivery Method Room Air Weight: 76.204 kg Body Mass Index (BMI) 26.3 Intake and Output for Last 24 Hours 11/02/18 11/03/18 11/04/18 23:59 23:59 23:59 Intake Total 2760 / 2760 850 / 850 Output Total 1200 / 1200 975 / 975 Balance 1560 / 1560 -125 / -125 Laboratory Tests Past 24 Hrs 11/03/18 05:58 Diff Path Review Reviewed Discharge Diet: No Restrictions Home Medications: Medications to take at Discharge Omeprazole [Prilosec] 20 mg PO DAILY 11/24/16 Ergocalciferol [Vitamin D] 50,000 unit PO ABRBA 06/12/18 Gabapentin [Neurontin] 300 mg PO TIDCM #90 cap 10/28/18 predniSONE tablet 20 mg PO DAILY@0800 #7 tab 10/28/18 HYDROmorphone tablet [Dilaudid] 2 mg PO Q6H PRN PRN 11/01/18 Acetaminophen [Tylenol] 1,000 mg PO Q8 PRN tablet 11/04/18 HYDROmorphone tablet [Dilaudid] 2 mg PO Q4H PRN PRN 4 Days #20 tab 11/04/18 Oxycodone CR [Oxycontin] 15 mg PO BID 5 Days #10 tab 11/04/18 Senna/Docusate Sodium [Senokot-S] 2 tablet PO BID tablet 11/04/18 Sertraline HCl [Zoloft] 100 mg PO DAILY tablet 11/04/18 Following Prescrptions Were Given to Patient: HYDROmorphone tablet [Dilaudid] 2 mg PO Q4H PRN PRN 4 Days #20 tab PRN Reason: Severe Pain (-06/07) Oxycodone CR [Oxycontin] 15 mg PO BID 5 Days #10 tab Primary Care Physician: Rolando Burgos DO [Primary Care Provider] - Please follow up with your Primary Care Physician in: within 1-2 weeks Please Follow Up With: Jarett Anaya MD When: on 11/07/18 Disposition: Senior Care facility Minutes spent on discharge:: 40 Patient Condition:: Stable Medical Necessity - Tobacco Use Smoking Status: Former smoker Tobacco Use: Non-smoker Meaningful Use Info Meaningful Use Diagnoses (Choose all that apply): None applicable Code Visit Inpatient E&M: 25332 Disch Hosp
--- NOTE | 2018-11-04 10:32 | TREXTCAR_ITS ---
- Diet 11/01/18 15:10 Diet: Regular Diet Food consistency:: Regular Liquid Consistency:: Regular/Thin - Routine Orders/Code Status Routine Lab Work: CBC - within 3 days, BMP - within days - Wound(s) LUMBAR Wound Type: INJECTION - Therapies Physical Therapy: Eval and Treat Occupational Therapy: Eval and Treat - Allergies/Procedures Done in Hospital Allergies/Adverse Reactions: Allergies Nygqmiz-Ujc-Jno Reductase Inhibitor Allergy (Verified 11/01/18 07:53) Other dextromethorphan Adverse Reaction (Severe, Verified 11/01/18 07:53) Unknown duloxetine [From Cymbalta] Adverse Reaction (Severe, Verified 11/01/18 07:53) Other difficulty sleeping quetiapine [From Seroquel] Adverse Reaction (Severe, Verified 11/01/18 07:53) Other difficulty sleeping Procedures: - - s/p epidural injection - Type of Care/Length of Stay Estimated LOS: Convalescent Care Less Than 30 days Type of Care Needed: Skilled Rehab Potential: Fair Prognosis: Fair - Additional Orders/Day of Discharge Day of Discharge: 11/04/18 - Follow Up Care Primary Care Physician: Rolando Burgos DO [Primary Care Provider] - Please follow up with your Primary Care Physician in: within 1-2 weeks Please Follow Up With: Jarett Anaya MD When: on 11/07/18
[2018-11-04] MEDS: Pantoprazole Sodium 20 MG Tablet PO (11:15)
[2018-11-04] MEDS: HYDROmorphone 1 MG/ML Syringe 2 MG IV (11:24)
== END 2018-11-04 12:02 | disposition skilled nursing facility (03) ==
LOC: ED 08:23 → MS3 13:41
PROVIDERS: Anesthesiology Pain Medicine; Emergency Provider Emergency Medicine; Family Provider Family Medicine; PCP Family Medicine; Visit Provider Internal Medicine
PROC: 3E0S3BZ Introduction of Anesthetic Agent into Epidural Space, Percutaneous Approach (ICD-10-PCS; CPT 64483; principal; 2018-11-02 12:10)
DX: G89.29 Other chronic pain (principal); M48.061 Spinal stenosis, lumbar region without neurogenic claudication; M54.17 Radiculopathy, lumbosacral region; K59.03 Drug induced constipation; T40.2X5A Adverse effect of other opioids, initial encounter; F32.9 Major depressive disorder, single episode, unspecified; D61.818 Other pancytopenia; C83.10 Mantle cell lymphoma, unspecified site; M19.90 Unspecified osteoarthritis, unspecified site; F43.10 Post-traumatic stress disorder, unspecified; K21.9 Gastro-esophageal reflux disease without esophagitis; R39.11 Hesitancy of micturition; H53.2 Diplopia; E78.5 Hyperlipidemia, unspecified; E11.22 Type 2 diabetes mellitus with diabetic chronic kidney disease; I12.9 Hypertensive chronic kidney disease with stage 1 through stage 4 chronic kidney disease, or unspecified chronic kidney disease; N18.9 Chronic kidney disease, unspecified; Z79.899 Other long term (current) drug therapy; Z79.52 Long term (current) use of systemic steroids; Z87.891 Personal history of nicotine dependence
CPT/HCPCS: 01936; 64483; 64484; 36415; 51798; 72020; 80048; 85025; 85610; 96361; 96374; 96375; 96376; 97162; 97166; 97530; 99218; 99282; J7030; J7040; A4216; G0378; J2405

== ENCOUNTER 2018-11-09 18:56 | Emergency (ER) | payer MEDICARE, SELFPAY ==
[2018-11-02 11:26] VITALS: BMI 26.3
[2018-11-09 18:58] VITALS: BP 137/106; BP 138/92; PULSE 85; PULSE 88; RESP 14; RESP 17; TEMP 36.3; O2SAT 94; O2SAT 96; BMI 23.0
--- NOTE | 2018-11-09 19:34 | MRI_ITS ---
STUDY: MRI LUMBAR SPINE WITH AND WITHOUT CONTRAST REASON FOR EXAM: Male, 73 years old. Radiculopathy, history of malignancy. Epidural injection last week, persistent pain. History of lymphoma based on prior study. TECHNIQUE: Standardized fat and water weighted pulse sequences were obtained in the sagittal and axial planes. Dotarem 14 Catheter Injection was administered for the contrast portion of the examination. COMPARISON: 10/27/2018. FINDINGS: Extensive, diffusely abnormal marrow signal with areas of enhancement following the administration of contrast, consistent with history of malignancy. T12-L1: Normal endplates. Disc dehydration. Normal bilateral facet joints. Normal central canal and bilateral lateral recesses. Normal bilateral intervertebral neural foramina. There is straightening of the normal lumbar lordosis. There is no substantial scoliosis. Conus medullaris is normal in position, terminating at the T12-L1 level. There is enhancement along the pial surface of the distal thoracic cord and conus medullaris. There is diffuse enhancement of the nerve roots of the cauda equina. L1-2: Disc dehydration and marked disc space narrowing. There is a left paracentral disc extrusion with 8 mm caudal migration. The extrusion causes mild effacement of the left ventral thecal sac. There is no canal stenosis. There is mild left foraminal encroachment due to the disc extrusion. L2-3: Disc dehydration and moderate disc space narrowing. There is a moderate spondylotic bar and mild facet and ligamentous hypertrophy. There is no canal stenosis. There is mild left foraminal encroachment due to spurring. L3-4: Disc dehydration with moderate disc space narrowing. There is a mild spondylotic bar and mild facet hypertrophy. No canal stenosis. There is moderate right foraminal stenosis due to spurring and facet hypertrophy. L4-5: There is marked disc space narrowing and 5 mm retrolisthesis. There is a moderate spondylotic bar and moderate facet and ligamentous hypertrophy. There is mild to moderate foraminal stenosis, greater on the left, due to spurring and facet hypertrophy. L5-S1: There is marked disc space narrowing. There is 7 mm anterolisthesis with bilateral L5 spondylolysis, consistent with grade 1 spondylolisthesis. There is no canal stenosis. There is severe foraminal stenosis due to spondylosis and marked facet hypertrophy. Normal visualized paraspinous soft tissue structures. MRI/Spine Lumbar W/WO Contrast IMPRESSION: 1. Abnormal enhancement of the cauda equina and sudhakar mater consistent with metastatic disease, less likely arachnoiditis. 2. L1-2 disc extrusion with caudal migration, no significant change. 3. Grade 1 spondylolisthesis at L5-S1. 4. Mild retrolisthesis at L4-5. 5. Multilevel foraminal encroachment, greatest at L5-S1. 6. Heterogeneous marrow, presumed malignant. Electronically Signed: Bibi Gilbert MD at 21:45 EDT Tel , Service support ,
[2018-11-09 20:19] LABS: Anion Gap 9 (5-15); BUN 18 mg/dL (7-18); BUN/Creat Ratio 17.5 RATIO (10-20); Calcium,Total 8.7 mg/dL (8.5-10.1); Chloride 86 mmol/L (98-107); Creatinine, Serum 1.03 mg/dL (0.70-1.30); EST Glomerular Filtration Rate 75 mL/min (>60); Est Glom Filt Rate - Afr Amer 91 mL/min (>60); Estimated Creatinine Clearance 59.72 ml/min; Glucose 227 mg/dL (74-106); Potassium 4.4 mmol/L (3.5-5.1); Sodium Level 122 mmol/L (136-145)
[2018-11-09 20:28] LABS: Hematocrit 33.8 % (40-54); Hemoglobin 11.5 g/dl (13.0-16.5); Mean Corpuscular Hgb 32.2 pg (27.0-32.0); Mean Corpuscular Volume 94.7 fL (80-94); Mean Platelet Vol. 9.1 fl (6.2-12.0); RBC Distribution Width CV 14.6 % (11.6-14.6); RBC Distribution Width SD 50.4 fl (35.1-43.9); Red Blood Count 3.57 M/mm3 (4.6-6.2); White Blood Count 7.3 K/mm3 (4.4-11.0)
[2018-11-09 20:34] LABS: Differential Indicated MANUAL DIFF; POSITIVE COUNT YES; POSITIVE DIFFERENTIAL NO; POSITIVE MORPHOLOGY YES; Platelet Count 45 K/mm3 (150-450)
[2018-11-09 20:54] LABS: Neutrophil-Band 10 % (0-5); Neutrophil-Segmented 76 % (47-70); Total Cells Counted 100 (MANUAL DIFF)
[2018-11-09 20:55] LABS: Eosinophil 1 % (0-5); Lymphocyte 8 % (19-41); Metamyelocyte 1 % (0-1); Monocyte 4 % (0-10)
[2018-11-09 20:57] LABS: Absolute Lymphocyte Count 0.59 X10^3/ul (0.83-4.51); Absolute Neutrophil Count 6.3 X10^3/uL (2.0-7.7)
[2018-11-09] MEDS: 0.9% Normal Saline 1,000 ML 1000 ML IV (20:58)
--- NOTE | 2018-11-09 22:13 | ED.DCSUM_ITS ---
- ER Visit Summary Date of Service: 11/09/18 Chief Complaint: Back pain History of Present Illness: The patient is a 73 M who presents with back pain that has been getting worse over the past 6 weeks. Patient states that his pain actually got worse after he takes a pain pill. Patient states the pain radiates down his right leg. Patient admits to some tingling in his toes. Patient denies any numbness. Patient denies any bowel or bladder changes. Patient denies any saddle anesthesia. Patient states he had an epidural injection on 11/02. Patient was transferred to extended care facility on 11/04 for rehab. Physical Examination: Vital signs are stable. Patient is afebrile. Patient is in no acute distress. Musculoskeletal exam reveals some tenderness over the lumbar paraspinal muscles. There is mild midline tenderness. There is no bony crepitance or step-off noted. There is no edema or ecchymosis. Straight leg raises were negative bilaterally. Patient was able to sit up without difficulty. Strength is 5/5 bilaterally in the upper and lower extremities. There are no sensory deficits noted. Heart was regular rate and rhythm. Lungs are clear and equal bilateral. Abdomen is soft nontender. The remaining physical exam is within normal limits. Test Results: CBC shows thrombocytopenia of 45. Basic metabolic profile showed sodium of 122 and chloride of 86. Glucose was 227. The remaining labs were normal. MRI of the lumbar spine was obtained. There is no evidence of any epidural abscess. Emergency Department Course and Treatment: Patient was given a liter bolus of normal saline here. Case was discussed with Dr. Small. He is agreeable to discharge the patient back to the extended care facility and put the patient on a fluid restriction for his hyponatremia. A repeat BMP will be obtained tomorrow at the facility. Patient was given an injection of morphine here. Patient and his understood and were agreeable with the plan. All questions were answered. Disposition: Discharge Impression: Acute on chronic low back pain This note was generated with [employer] dictation software. It may contain incorrect words, spelling, and punctuation that were not noted in review of the chart prior to signing ED Disposition - Plan for ED Patient: Disposition: Long-Term Facility Diagnosis: Radiculopathy of lumbar region Instructions: ED Sciatica Referrals: Rolando Burgos DO [Primary Care Provider] - Additional Instructions: He will be on fluid restriction of 2000 cc of fluid per day. A repeat BMP tomorrow will need to be obtained.
[2018-11-09] MEDS: Morphine 4 MG/ML Syringe IV (22:49)
--- NOTE | 2018-11-09 23:00 | ED.RN ---
REPORT CALLED BACK TO CARISA AT [facility]. VERBALIZED UNDERSTANDING. NO FURTHER ORDERS
[2018-11-09 23:23] VITALS: RESP 16
[2018-11-13 09:12] LABS: Pathologist Review Reviewed
== END 2018-11-09 23:23 | disposition skilled nursing facility (03) ==
PROVIDERS: Emergency Provider Emergency Medicine; Family Provider Family Medicine; PCP Family Medicine
DX: M54.5 Low back pain (principal); G89.29 Other chronic pain; Z85.72 Personal history of non-Hodgkin lymphomas; Z79.891 Long term (current) use of opiate analgesic; Z79.899 Other long term (current) drug therapy
CPT/HCPCS: 72158; 80048; 85025; 96361; 96374; 99284; A9575; J7030; A4216

== ENCOUNTER 2018-11-16 11:23 | Emergency (ER) | payer MEDICARE, SELFPAY ==
[2018-11-16 11:24] VITALS: BP 140/70; PULSE 102; RESP 16; TEMP 36.6; O2SAT 94; BMI 22.7
--- NOTE | 2018-11-16 11:36 | MRI_ITS ---
STUDY: MRI BRAIN WITH AND WITHOUT CONTRAST REASON FOR EXAM: Male, 73 years old. General weakness with history of mantle cell lymphoma. TECHNIQUE: Standardized multiplanar fat and water weighted pulse sequences were obtained. Dotarem 14 IV was administered for the contrast portion of the examination. COMPARISON: None. FINDINGS: There is mild cerebral atrophy with widening of the extra-axial spaces and ventricular dilatation. There is question of right frontal cortical subtle signal enhancement as seen on axial series 3 image 19 measuring approximate 4 mm and also seen on coronal series 4 image 22. There are a limited number of small white matter hyperintensities, distributed throughout the deep white matter tracts of the cerebral hemispheres, consistent with mild chronic white matter ischemic changes. There is no evidence for recent intracranial ischemia or other cause of cytotoxic edema on diffusion weighted imaging (DWI). Normal T2* images of the brain without demonstrated susceptibility artifact. There is no demonstrated hemosiderin stain. Normal bilateral basal ganglia. Normal thalami. There is no extra-axial fluid accumulation. Normal flow voids within the major intracranial circulation suggesting patency by spin echo criteria. Normal venous enhancement. There is no enhancing intra-axial or extra-axial abnormality. Normal sella turcica, pituitary gland, infundibular stalk, optic chiasm and hypothalamus. Normal tectal plate and pineal gland. Normal midbrain, guicho and medulla. Normal cerebellum. Normal basal cisterns. Normal bilateral temporal bones. Normal bilateral internal auditory canals. No demonstrated orbital abnormality, within the constraints of a routine brain study. Normal visualized paranasal sinuses. Bilateral mastoid effusions are present. Normal visualized soft tissue structures. Normal visualized upper cervical spine. MRI/Brain W/WO Contrast IMPRESSION: 1. Question of right frontal cortical subtle enhancement. 4 mm (series 3 image 19) with early subtle metastatic disease not completely excluded, recommend follow-up imaging with particular attention to this region for further assessment. Otherwise no evidence of acute intracranial bleed or ischemia. Senescent changes as above. Electronically Signed: Darian Hannon DO at 20:45 EDT , Service support ,
--- NOTE | 2018-11-16 11:45 | ED.DCSUM_ITS ---
- ER Visit Summary Date of Service: 11/16/18 Chief Complaint: Generalized weakness History of Present Illness: The patient is a 73 M who presents with generalized weakness. He feels very weak, mostly in his legs. This is been ongoing for some time. He has a history of non-Hodgkin's lymphoma. He saw Dr. Ybarra who recommended a MRI of the brain to rule out meningeal metastases. Family states that if this is the case that they would want hospice, but if he does not have metastases they still wanted to move forward with radiation to the abdomen Physical Examination: Vital signs are reviewed. HEENT exam is unremarkable. His extraocular movements are intact. Heart is regular rate and rhythm. Lungs are clear bilaterally. Abdomen is soft and nontender. Extremities show no edema. He has generalized weakness of his lower extremities with full strength of his upper extremities. Test Results: White blood cell count 12.2, potassium 3.2 Emergency Department Course and Treatment: The patient needed assistance while walking. Case management evaluated the patient and the patient needs precertification for a rehab stay. I discussed with the hospitalist who stated the patient will need to be on observation Treatment Plan: [] Disposition: Admit to observation Impression: Failure to thrive, weakness This note was generated with [employer] dictation software. It may contain incorrect words, spelling, and punctuation that were not noted in review of the chart prior to signing ED Disposition - Plan for ED Patient: Referrals: Rolando Burgos DO [Primary Care Provider] -
[2018-11-16] MEDS: Ondansetron 4 MG/2 ML Vial IV ×2 (12:18→15:33)
[2018-11-16 12:20] LABS: Hematocrit 31.2 % (40-54); Hemoglobin 10.5 g/dl (13.0-16.5); Mean Corp Hgb Conc 33.7 g/gl (32-36); Mean Corpuscular Hgb 31.9 pg (27.0-32.0); Mean Corpuscular Volume 94.8 fL (80-94); Mean Platelet Vol. 8.4 fl (6.2-12.0); RBC Distribution Width CV 14.3 % (11.6-14.6); RBC Distribution Width SD 46.8 fl (35.1-43.9); Red Blood Count 3.29 M/mm3 (4.6-6.2); White Blood Count 1.8 K/mm3 (4.4-11.0)
[2018-11-16 12:21] LABS: Platelet Count 20 K/mm3 (150-450)
[2018-11-16 12:22] LABS: Differential Indicated MANUAL DIFF; POSITIVE COUNT YES; POSITIVE DIFFERENTIAL YES; POSITIVE MORPHOLOGY YES
[2018-11-16] MEDS: Morphine 4 MG/ML Syringe IV ×2 (12:25→15:30)
--- NOTE | 2018-11-16 12:31 | MRI_ITS ---
STUDY: MRI CERVICAL SPINE WITH AND WITHOUT CONTRAST REASON FOR EXAM: Male, 73 years old. General weakness, h/o mantel cell lymphoma, ?? mets TECHNIQUE: Standardized fat and water weighted pulse sequences were obtained in the sagittal and axial following administration of Dotarem 14 IV. COMPARISON: None FINDINGS: Normal foramen magnum and brainstem-cervical cord junction. Normal craniovertebral junction. There are degenerative changes of the anterior atlantoaxial articulation. Normal odontoid process. Normal cervical lordosis. There is a heterogeneous appearance throughout the cervical bodies with T1 imaging demonstrating scattered heterogeneous enhancement within the vertebral bodies throughout and low signal throughout the vertebral bodies on T1 imaging concerning for diffuse component of mesenteric metastatic disease as seen on sagittal series 2 image 8. C2-3: Disc desiccation is present with no significant spinal canal narrowing or foraminal narrowing at this level. C3-4: Decreased disc space and disc osteophyte complex eccentric to the right uncovertebral joint arthropathy resulting in moderate bilateral foraminal narrowing. C4-5: Decreased disc space and disc osteophyte complex with mild to moderate bilateral foraminal narrowing effacement of the thecal sac. C5-6: General disc changes and disc osteophyte complex resulting in mild to moderate bilateral foraminal narrowing and effacement of the thecal sac. C6-7: Degenerative disc changes and broad-based disc bulge/disc osteophyte complex effaces the thecal sac with accompanying likely mild bilateral foraminal narrowing though limited by technique. C7-T1: Disc desiccation with no significant spinal canal narrowing or foraminal narrowing. No evidence of definitive cord signal abnormality or enhancement. Normal visualized soft tissue structures. MRI/Spine Cervical W/WO Contrast IMPRESSION: 1. Heterogeneous cervical vertebral bodies with heterogeneous enhancement throughout the visualized bodies concerning for diffuse heterogeneous metastatic disease, clinically correlate. 2. Multilevel degenerative disc changes and foraminal narrowing as above. Electronically Signed: Darian Hannon DO at 20:55 EDT , Service support ,
--- NOTE | 2018-11-16 12:31 | MRI_ITS ---
STUDY: MRI THORACIC SPINE WITH AND WITHOUT CONTRAST REASON FOR EXAM: Male, 73 years old. General weakness history of mantle cell lymphoma. TECHNIQUE: Dotarem 14 IV was administered for the contrast portion of the examination. COMPARISON: None. FINDINGS: Normal kyphosis of the thoracic spine. There is no substantial scoliosis. T1-2, T2-3, T3-4, T4-5, T5-6, T6-7, T7-8, T8-9, T9-10, T10-11, T11-12: Multilevel disc desiccation and endplate degenerative changes without significant disc bulge, spinal canal narrowing or foraminal narrowing. Comparing precontrast and postcontrast T1 imaging there is scattered heterogeneous enhancement throughout the thoracic vertebral bodies and posterior elements concerning for diffuse metastatic changes as seen on sagittal series 9 image 7. Normal visualized thoracic cord. Normal conus medullaris that terminates at the . The soft tissue structures are unremarkable. There is no enhancing abnormality. MRI/Spine Thoracic W/WO Contrast IMPRESSION: 1. Findings concerning for diffuse metastatic heterogeneous osseous elements throughout the thoracic spine and posterior elements given heterogeneous enhancement on postcontrast imaging, clinically correlate with sequela of known lymphoma. Electronically Signed: Darian Hannon DO at 21:00 EDT , Service support ,
[2018-11-16 12:32] LABS: Anion Gap 10 (5-15); BUN 18 mg/dL (7-18); BUN/Creat Ratio 18.3 RATIO (10-20); Chloride 86 mmol/L (98-107); Creatinine, Serum 0.98 mg/dL (0.70-1.30); EST Glomerular Filtration Rate 79 mL/min (>60); Est Glom Filt Rate - Afr Amer 96 mL/min (>60); Estimated Creatinine Clearance 62.45 ml/min; Glucose 218 mg/dL (74-106); Potassium 3.9 mmol/L (3.5-5.1); Sodium Level 127 mmol/L (136-145)
[2018-11-16 12:36] LABS: Blast 4 % (0-0); Lymphocyte 18 % (19-41); Metamyelocyte 2 % (0-1); Monocyte 12 % (0-10); Neutrophil-Segmented 64 % (47-70); Total Cells Counted 50 (MANUAL DIFF)
[2018-11-16 12:37] LABS: Platelet Estimate MKD DEC (ADEQ)
[2018-11-16 12:38] LABS: Absolute Lymphocyte Count 0.33 X10^3/ul (0.83-4.51); Absolute Neutrophil Count 1.2 X10^3/uL (2.0-7.7)
--- NOTE | 2018-11-16 13:29 | ED.VISSUMM ---
- ER Visit Summary Date of Service: 11/16/18 Chief Complaint: [] History of Present Illness: The patient is a 73 M [] Physical Examination: [] Test Results: White blood cell count 1.8, hemoglobin 10.5. Platelet count is 20. He has had chronically low platelet counts. Sodium 127, chloride 86. Glucose 218. MRI of the cervical spine, thoracic spine and head are pending Emergency Department Course and Treatment: Dr Tenorio with radiation oncology came to the emergency department and evaluated the patient. He is going to prepare the patient for radiation of the lower spine and possibly of the head if it does show metastatic disease. At this point the patient is pending MRI studies. I feel that regardless of these he can be discharged back to his long-term. He can have the adequate care down there. Dr. Tenorio is going to work with social work about getting the patient transportation from the long-term back here for his radiation treatments. 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 It may contain incorrect words, spelling, and punctuation that were not noted in review of the chart prior to signing ED Disposition - Plan for ED Patient: Referrals: Rolando Burgos DO [Primary Care Provider] -
--- NOTE | 2018-11-16 13:45 | CM.ED ---
SOCIAL WORK NOTE DR. RIZZO WITH RADIATION ONCOLOGY INFORMED THIS WORKER PATIENT TO BE SCHEDULED FOR RADIATION. PATIENT FROM [facility] AND PLAN IS TO RETURN ONCE MRI'S COMPLETED LATER THIS DAY. DR. RZIZO INQUIRING ABOUT TRANSPORTATION TO AND FROM RADIATION FROM NURSING FACILITY. THIS WORKER TO CALL AND UPDATE [facility] ON PLAN OF CARE. CALL TO [facility], SPOKE WITH RAFAELA. UPDATED ON PATIENT AND NEED FOR TRANSPORT FOR RADIATION APPOINTMENTS. THIS WORKER TO UPDATE RAFAELA ONCE PATIENT IS READY FOR D/C. MEI HARPER, ABALONE FISHERMAN, PARTS FINISHER.
[2018-11-16 14:59] VITALS: BP 138/79; PULSE 82; RESP 16; O2SAT 95
--- NOTE | 2018-11-16 15:12 | ED.DEP ---
ED Disposition - Plan for ED Patient: Disposition: Home or Assisted Living Instructions: Discharge Instructions for Non-Hodgkin Lymphoma Prescriptions: Dexamethasone [Decadron] 4 mg PO 4X/DAY #28 tab Referrals: Rolando Burgos DO [Primary Care Provider] -
[2018-11-16 15:43] VITALS: BP 171/107; PULSE 98; RESP 18; O2SAT 93
--- NOTE | 2018-11-16 17:00 | CM.ED ---
SOCIAL WORK NOTE UPDATED BY DR. RIZZO, PATIENT'S RADIATION IS SCHEDULED FOR TOMORROW, Tuesday11/17/18 AT 2PM AND 11/18/18 AT 8AM. CALL TO RAFAELA AT [facility] TO UPDATE. RAFAELA TO SET UP TRANSPORTATION. MEI HARPER, DIRECTOR OF CASEWORK SERVICES, REVIEWER SALES.
[2018-11-16 20:43] VITALS: BP 168/109; PULSE 81; RESP 18; O2SAT 95
[2018-11-16] MEDS: Lidocaine Jelly 2% 20 ML Syringe (URO-JET) 20 APPLIC TOPICAL (20:43)
--- NOTE | 2018-11-16 21:06 | ED.DCSUM_ITS ---
- ER Visit Summary Date of Service: 11/16/18 The patient was checked out to me with MRI of the head, neck, and thoracic spine pending. Test Results: Clinical Impression(s) from Imaging Studies Brain MRI 11/16/18 11:36 IMPRESSION: 1. Question of right frontal cortical subtle enhancement. 4 mm (series 3 image 19) with early subtle metastatic disease not completely excluded, recommend follow-up imaging with particular attention to this region for further assessment. Otherwise no evidence of acute intracranial bleed or ischemia. Senescent changes as above. Electronically Signed: Darian Hannon DO at 20:45 EDT , Service support , Cervical Spine MRI 11/16/18 12:31 IMPRESSION: 1. Heterogeneous cervical vertebral bodies with heterogeneous enhancement throughout the visualized bodies concerning for diffuse heterogeneous metastatic disease, clinically correlate. 2. Multilevel degenerative disc changes and foraminal narrowing as above. Electronically Signed: Darian Hannon DO at 20:55 EDT , Service support , Thoracic Spine MRI 11/16/18 12:31 IMPRESSION: 1. Findings concerning for diffuse metastatic heterogeneous osseous elements throughout the thoracic spine and posterior elements given heterogeneous enhancement on postcontrast imaging, clinically correlate with sequela of known lymphoma. Electronically Signed: Darian Hannon DO at 21:00 EDT , Service support , Emergency Department Course and Treatment: Patient complained of the urge to void and inability to do so. He had a Moreno catheter placed. He had 1100 cc urine out. He is resting comfortably otherwise. Treatment Plan: Patient will be discharged instructed to follow-up with his oncologist tomorrow as previously scheduled. The results of his MRIs were discussed with the family. Disposition: To the assisted and serious condition. This note was generated with [employer] software. It may contain incorrect words, spelling, and punctuation that were not noted in review of the chart prior to signing ED Disposition - Plan for ED Patient: Disposition: Home or Assisted Living Instructions: Discharge Instructions for Non-Hodgkin Lymphoma Referrals: Rolando Burgos DO [Primary Care Provider] -
--- NOTE | 2018-11-16 21:30 | CM.ED ---
SOCIAL WORK NOTE MET WITH PATIENT AND IN ROOM. PATIENT TO D/C BACK TO [facility] WITH RADIATION APPOINTMENT TOMORROW. TRANSPORTATION HERE FOR D/C BACK TO [facility]. PATIENT AND UNSURE OF PLAN AND ARE CONSIDERING HOSPICE. EMOTIONAL SUPPORT AND EDUCATION PROVIDED. STATES PLANS TO DISCUSS WITH ONCOLOGY TOMORROW. PATIENT REQUESTING SOMETHING FOR PAIN AT THIS TIME. DR. SAHA TO REVIEW MEDICATIONS PRIOR TO D/C. MEI HARPER, BURRER OPERATOR, TILE CLASSIFIER.
[2018-11-16 21:31] VITALS: BP 153/78; PULSE 78; RESP 16; O2SAT 96
[2018-11-16] MEDS: HYDROmorphone 1 MG/ML Syringe IM (21:48)
[2018-11-16] MEDS: oxyCODONE CR 15 MG Tablet PO (21:51)
--- NOTE | 2018-11-16 22:08 | ED.RN ---
REPORT CALLED TO NURSE ALONZO AT [facility]. UPDATED ON NEW FINDINGS, NEW [place].
[2018-11-20 09:38] LABS: Pathologist Review Reviewed
== END 2018-11-16 21:56 | disposition skilled nursing facility (03) ==
PROVIDERS: Emergency Provider Emergency Medicine; Family Provider Family Medicine; PCP Family Medicine
DX: R53.1 Weakness (principal); C79.49 Secondary malignant neoplasm of other parts of nervous system; K21.9 Gastro-esophageal reflux disease without esophagitis; E78.00 Pure hypercholesterolemia, unspecified; F41.9 Anxiety disorder, unspecified; N18.9 Chronic kidney disease, unspecified; Z79.52 Long term (current) use of systemic steroids; Z79.891 Long term (current) use of opiate analgesic; Z79.899 Other long term (current) drug therapy; C83.38 Diffuse large B-cell lymphoma, lymph nodes of multiple sites; C81.3 Lymphocyte depleted Hodgkin lymphoma
CPT/HCPCS: 51702; 70553; 72156; 72157; 77014; 77290; 80048; 85025; 96372; 96374; 96375; 96376; 99284; A9575; A4216; J2405